=== PATIENT | male | born 1940 | race Caucasian/White ===

== ENCOUNTER 2017-03-09 08:42 | Inpatient (IN) | payer OTHER ==
[~2017-03-09] VITALS: Ht 172.7 cm; Wt 83.5 kg
[2017-03-09 09:39] LABS: BASO % 0.4 %; BASO ABS # 0.03 K/uL (0-0.2); EOS % 2.3 %; EOS ABS # 0.17 K/uL (0-0.5); HEMATOCRIT 50.6 % (42-52); HEMOGLOBIN 17.3 g/dL (14.0-18.0); IG# 0.03 K/uL (0.00-0.02); LYMPH % 22.8 %; LYMPH ABS # 1.68 K/uL (1.2-3.4); MEAN CELL VOLUME 93.7 fL (80-100); MEAN CORPUSCULAR HGB CONC 34.2 g/dl (32-36); MEAN PLATELET VOLUME 10.1 fL (7.4-10.4); MONO % 8.2 %; NEUT % 65.9 %; NEUT ABS # 4.85 K/uL (1.4-6.5); PLATELET COUNT 243 K/uL (130-400); RED CELL DISTRIBUTION WIDTH CV 13.3 % (11.5-14.5); RED CELL DISTRIBUTION WIDTH SD 45.6 fL (36.4-46.3); WHITE BLOOD COUNT 7.36 K/uL (4.8-10.8)
--- NOTE | 2017-03-09 09:45 | EMERGENCY ROOM VISIT NOTE ---
History Report prepared by Samantha: Cristin Davis Under the Supervision of: Dr. Yulissa Haas M.D. First contact with patient: 08:54 Chief Complaint: OTHER COMPLAINT Stated Complaint: MINOR DISORIENTATION WEDNESDAY History of Present Illness The patient is a 77 year old male who presents to the Emergency Room with complaints of resolved disorientation that occurred on Wednesday. The patient states that on Wednesday he had a busy day with his family and notes that he had a flat tire that frustrated him. The patient's daughter notes that the patient became flustered and had a hard time forming thoughts. She notes that the patient became very angry which is atypical for him. The patient's daughter states that the patient could not solve the situation and kept repeating the story throughout the entire day. She additionally notes that the patient forgot that he went to the grocery store on Wednesday. The patient's daughter notes that the patient has been easier to anger since Wednesday when he is typically happy. The patient reports a history of hypertension. Source of History: patient, family (daughter) Onset: Wednesday Position: other (global) Quality: other (disorientation) Timing: resolved Review of Systems See HPI for pertinent positives & negatives. A total of 10 systems reviewed and were otherwise negative. Past Medical & Surgical Medical Problems: (1) Hx of basal cell carcinoma (2) Hypertension (3) Palpitations (4) Stroke Surgical Problems: (1) Hx of colonoscopy Family History Hypertension Social History Smoking Status: Never Smoker Marital Status: Housing Status: lives with significant other Occupation Status: retired Current/Historical Medications Scheduled Cholecalciferol (Vitamin D), 2,000 UNITS PO DAILY Fish Oil ([place]-3), 1 CAP PO DAILY Lisinopril/Hctz (Zestoretic 20MG/12.5MG), 1 TAB PO DAILY Vitamins C & E (Vitamin C), 1 CAP PO DAILY Allergies Coded Allergies: Amoxicillin (Unverified Allergy, Unknown, ., 03/09/17) Physical Exam Vital Signs Date Time Temp Pulse Resp B/P (MAP) Pulse Ox O2 Delivery O2 Flow Rate FiO2 03/09/17 13:25 94 03/09/17 13:22 81 19 94 03/09/17 13:17 77 20 94 03/09/17 13:12 73 20 94 03/09/17 13:07 81 15 92 03/09/17 13:02 85 18 93 17 13:01 143/91 17 12:57 80 14 95 03/09/17 12:52 92 20 91 17 12:47 82 21 93 17 12:42 76 20 93 17 12:37 86 17 96 03/09/17 12:32 87 17 93 17 12:31 159/104 03/09/17 12:27 85 19 93 17 12:26 77 17 12:22 74 23 93 17 12:18 72 03/09/17 12:17 79 26 94 03/09/17 12:12 82 15 93 03/09/17 12:07 80 22 94 03/09/17 12:02 77 19 94 03/09/17 12:01 145/91 03/09/17 11:57 76 20 93 17 11:54 144/82 17 11:52 70 94 17 11:47 73 92 17 11:37 68 21 94 17 11:32 74 20 94 17 11:31 140/86 17 11:27 76 19 90 17 11:22 86 18 92 17 11:17 82 19 94 17 11:12 74 19 92 17 11:07 80 20 94 17 11:02 77 15 94 17 11:01 146/87 17 10:57 74 22 93 17 10:53 84 18 133/86 93 Room Air 03/09/17 10:52 80 23 93 03/09/17 10:47 71 15 92 17 10:42 82 14 93 17 10:37 74 20 93 17 10:32 77 19 94 17 10:31 133/86 17 10:27 78 21 95 03/09/17 10:22 77 20 94 03/09/17 10:17 71 21 94 17 10:12 79 20 94 17 10:08 75 18 168/99 94 Room Air 03/09/17 10:07 88 17 168/99 03/09/17 09:44 79 18 47/91 94 Room Air 03/09/17 09:43 147/91 03/09/17 09:42 78 19 93 03/09/17 09:37 61 21 95 03/09/17 09:32 74 25 155/100 95 03/09/17 09:31 180/105 03/09/17 09:27 84 18 03/09/17 09:22 79 17 94 03/09/17 09:17 77 19 94 03/09/17 09:12 78 21 93 03/09/17 09:10 85 03/09/17 09:05 94 Room Air 03/09/17 09:05 166/97 03/09/17 08:47 36.4 84 18 166/117 94 Room Air Physical Exam Vital signs reviewed. Noted to be hypertensive General: Well-appearing male, in no significant distress. HEENT: No scleral icterus, PERRLA, neck supple. Atraumatic. Cardiovascular: Regular rate and rhythm, no extra sounds. Pulmonary: Clear to auscultation bilaterally, normal work of breathing. Abdomen: Soft, nontender, nondistended, positive bowel sounds. Musculoskeletal: Atraumatic, no peripheral edema. Neurologic: Patient awake alert and oriented x 3, full strength in all 4 extremities. Cranial nerves 2 through 12 grossly intact. Normal cerebellar exam. Skin: Warm, dry, no rash Medical Decision & Procedures ER Provider Diagnostic Interpretation: Radiology results as stated below per my review and radiologist interpretation: HEAD WITHOUT CONTRAST (CT) CLINICAL HISTORY: 77 years-old Male presenting with TIA, recent also disorientation, diaphoresis. TECHNIQUE: Multidetector CT imaging of the head was performed without the use of intravenous contrast. IV contrast: None. A dose lowering technique was used consistent with the principles of ALARA (as low as reasonably achievable). COMPARISON: None. CT DOSE (mGy.cm): The estimated cumulative dose is 537.48 mGy.cm. FINDINGS: Marketing Development Representative topogram: Unremarkable. Proportional ventricular and sulcal prominence, likely age-related parenchymal volume loss. Symmetric prominence of CSF space along the frontal convexities likely related to volume loss. Brain parenchyma normal in appearance with preserved goff-white differentiation. No mass effect or midline shift. No hemorrhage or acute territorial infarct. No extra-axial fluid collection. Paranasal sinuses and mastoid air cells clear. Calvarium intact. IMPRESSION: 1. No acute intracranial abnormality. Electronically signed by: Jae Frazier M.D. 03/09/2017 10:11 AM Dictated Date/Time: 03/09/2017 10:05 AM CHEST ONE VIEW PORTABLE HISTORY: 77 years-old Male HTN, AMS acute hypertension with altered mental status COMPARISON: None available TECHNIQUE: Portable AP view of the chest FINDINGS: Cardiomediastinal and hilar silhouettes are within normal limits. Atherosclerosis of the aorta. No pneumothorax, pleural effusion, focal airspace consolidation or overt pulmonary edema. Linear subsegmental opacities of the left lung base suggest atelectasis/scarring. Ill-defined calcification is noted inferior to the right coracoid which may reflect debris within the subcoracoid recess. IMPRESSION: No acute cardiopulmonary process. The above report was generated using voice recognition software. It may contain grammatical, syntax or spelling errors. Electronically signed by: Greg Schaefer M.D. 03/09/2017 9:43 AM Dictated Date/Time: 03/09/2017 9:42 AM Laboratory Results Test 03/09/17 09:05 03/09/17 10:00 Immature Granulocyte % (Auto) 0.4 % White Blood Count 7.36 K/uL (4.8-10.8) Red Blood Count 5.40 M/uL (4.7-6.1) Hemoglobin 17.3 g/dL (14.0-18.0) Hematocrit 50.6 % (42-52) Mean Corpuscular Volume 93.7 fL (80-100) Mean Corpuscular Hemoglobin 32.0 pg (25-34) Mean Corpuscular Hemoglobin Concent 34.2 g/dl (32-36) Platelet Count 243 K/uL (130-400) Mean Platelet Volume 10.1 fL (7.4-10.4) Neutrophils (%) (Auto) 65.9 % Lymphocytes (%) (Auto) 22.8 % Monocytes (%) (Auto) 8.2 % Eosinophils (%) (Auto) 2.3 % Basophils (%) (Auto) 0.4 % Neutrophils # (Auto) 4.85 K/uL (1.4-6.5) Lymphocytes # (Auto) 1.68 K/uL (1.2-3.4) Monocytes # (Auto) 0.60 K/uL (0.11-0.59) Eosinophils # (Auto) 0.17 K/uL (0-0.5) Basophils # (Auto) 0.03 K/uL (0-0.2) Immature Granulocyte # (Auto) 0.03 K/uL (0.00-0.02) Prothrombin Time 9.7 SECONDS (9.0-12.0) Prothromb Time International Ratio 0.9 (0.9-1.1) Activated Partial Thromboplast Time 25.3 SECONDS (21.0-31.0) Partial Thromboplastin Ratio 1.0 Total Bilirubin 0.6 mg/dl (0.2-1) Direct Bilirubin 0.1 mg/dl (0-0.2) Aspartate Amino Transf (AST/SGOT) 13 U/L (15-37) Alanine Aminotransferase (ALT/SGPT) 26 U/L (12-78) Alkaline Phosphatase 68 U/L (45-117) Total Protein 7.7 gm/dl (6.4-8.2) Albumin 4.2 gm/dl (3.4-5.0) Thyroid Stimulating Hormone (TSH) 1.600 uIu/ml (0.300-4.500) Lyme Disease IgG Antibody NEG (NEG) Lyme Disease IgM Antibody NEG (NEG) Urine Color YELLOW Urine Appearance CLEAR (CLEAR) Urine pH 7.5 (4.5-7.5) Urine Specific [place] 1.017 (1.000-1.030) Urine Protein NEG (NEG) Urine Glucose (UA) NEG (NEG) Urine Ketones NEG (NEG) Urine Occult Blood NEG (NEG) Urine Nitrite NEG (NEG) Urine Bilirubin NEG (NEG) Urine Urobilinogen NEG (NEG) Urine Leukocyte Esterase NEG (NEG) Laboratory results per my review. ECG Indication: other (disorientation) Rate (beats per minute): 78 Rhythm: sinus rhythm Findings: PVC (occasional), no acute ischemic change, no ectopy ED Course 928: Past medical records reviewed. The patient was evaluated in room B5. A complete history and physical examination was performed. 1220: I reevaluated the patient and he is resting comfortably. I discussed the test results with him and I discussed the treatment plan. He verbalized complete understanding and agreement. He is ready to go home. 1225: The patient went into a non-sustained wide complex ventricular tachycardia. I reevaluated the patient and discussed the new findings. I discussed the treatment plan. The patient and his daughter feel that the patient cannot stay in the emergency department for further treatment. I will speak to the patients primary care physician. 1233: I spoke to Dr. Almaraz, Family Medicine. He agrees that the patient needs to stay for further evaluation and treatment. 1235: I reevaluated the patient and he is resting. I discussed the conversation that I had with his PCP and that we both strongly recommend that he stays for further work up. He has decided that he will stay for further work up and treatment. 1247: I discussed the patients case with Vandana Cohen PA-C. She is going to evaluate the patient for further treatment. Medical Decision Differential diagnosis: Etiologies such as metabolic, infection, hypo/hyperglycemia, electrolyte abnormalities, cardiac sources, intracerebral event, toxicologic, neurologic, as well as others were entertained. This patient was evaluated and appeared to be in no significant distress. Physical examination is fairly unrevealing. CT scan of the head was performed and is negative for acute intracranial abnormality. 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 Laboratory work is fairly unrevealing. EKG reveals no acute ischemic changes. After my evaluation and forming the patient of the findings, nursing staff reported a 9 beat run of the wide-complex tachycardia. I informed the patient of the findings. He initially stated there is "no way" he is staying in the hospital. I offered to speak with his primary care physician, Dr. Almaraz and he agreed. Dr. Almaraz stated he felt strongly the patient needed hospitalized. He would be happy to follow the patient up if he adamantly refused however he asked me to convey his concern for discharge. The patient agreed to stay for further management. The hospitalist was consulted. Patient and daughter are aware of the plan and agree. Medication Reconcilliation Current Medication List: was personally reviewed by me Blood Pressure Screening Patient's blood pressure: Elevated blood pressure Blood pressure disposition: Referred to PCP Consults Time Called: 1230 Consulting Physician: Dr. Almaraz, Family Medicine Returned Call: [address] Almaraz Family Medicine. He agrees that the patient needs to stay for further evaluation and treatment. Additional Consults: Time Called: 1242 Consulted Physician: Vandana oChen PA-C Returned Call: 1244 Additional Comments: I discussed the patients case with Vandana Cohen PA-C. She is going to evaluate the patient for further treatment. Impression Primary Impression: Altered mental status Additional Impressions: Hypertension Wide-complex tachycardia Scribe Attestation The scribe's documentation has been prepared under my direction and personally reviewed by me in its entirety. I confirm that the note above accurately reflects all work, treatment, procedures, and medical decision making performed by me. Departure Information Dispostion Being Evaluated By Hospitalist Referrals David Almaraz M.D. (PCP) Problem Qualifiers
[2017-03-09] MEDS ORDERED: CHOL400T5 (09:49)
[2017-03-09] MEDS ORDERED: VITACAP26 PO (09:49)
[2017-03-09] MEDS ORDERED: OMEG10007 PO (09:49)
[2017-03-09] MEDS ORDERED: CHOL200010 PO (09:49)
[2017-03-09 09:50] LABS: ALBUMIN 4.2 gm/dl (3.4-5.0); ALT/SGPT 26 U/L (12-78); BLOOD UREA NITROGEN 18 mg/dl (7-18); CALCIUM 9.1 mg/dl (8.5-10.1); CARBON DIOXIDE 28 mmol/L (21-32); CREATININE 1.03 mg/dl (0.60-1.40); GLUCOSE 111 mg/dl (70-99); POTASSIUM 4.1 mmol/L (3.5-5.1); SODIUM 135 mmol/L (136-145)
[2017-03-09] MEDS ORDERED: LISI-787 PO (09:50)
[2017-03-09 10:00] LABS: ALKALINE PHOSPHATASE 68 U/L (45-117); AST/SGOT 13 U/L (15-37); TOTAL PROTEIN 7.7 gm/dl (6.4-8.2)
--- NOTE | 2017-03-09 10:12 | DIAGNOSTIC IMAGING REPORT ---
HEAD WITHOUT CONTRAST (CT) CLINICAL HISTORY: 77 years-old Male presenting with TIA, recent also disorientation, diaphoresis. TECHNIQUE: Multidetector CT imaging of the head was performed without the use of intravenous contrast. IV contrast: None. A dose lowering technique was used consistent with the principles of ALARA (as low as reasonably achievable). COMPARISON: None. CT DOSE (mGy.cm): The estimated cumulative dose is 537.48 mGy.cm. FINDINGS: Wood Form Builder topogram: Unremarkable. Proportional ventricular and sulcal prominence, likely age-related parenchymal volume loss. Symmetric prominence of CSF space along the frontal convexities likely related to volume loss. Brain parenchyma normal in appearance with preserved goff-white differentiation. No mass effect or midline shift. No hemorrhage or acute territorial infarct. No extra-axial fluid collection. Paranasal sinuses and mastoid air cells clear. Calvarium intact. IMPRESSION: 1. No acute intracranial abnormality. Electronically signed by: Jae Frazier M.D. 03/09/2017 10:11 AM Dictated Date/Time: 03/09/2017 10:05 AM
[2017-03-09] MEDS ORDERED: ACETAMINOPHEN 325 MG TAB PO PRN (13:45)
[2017-03-09 14:43] LABS: INR 0.9 (0.9-1.1); PTT PATIENT 25.3 SECONDS (21.0-31.0)
--- NOTE | 2017-03-09 15:57 | ECHOCARDIOGRAM REPORT ---
*NOTICE TO RECEIVING DEMOCRAT AGENCY This information is strictly Confidential and protected under [place] law. [place] law prohibits you from making any further disclosure of this information unless further disclosure is expressly permitted by the written consent of the person to whom it pertains or is authorized by law. A general authorization for the release of medical or other information is not sufficient for this purpose. Hospital accepts no responsibility if the information is made available to any other person, INCLUDING THE PATIENT. Interpretation Summary * Name: SUSAN SHEEHAN Study Date: 03/09/2017 02:11 PM BP: 169/92 mmHg * Patient Location: ED HR: 89 * : 1940 (M/d/yyyy) Gender: Male Height: 68 in * Age: 77 yrs Ethnicity: [place] Weight: 182 lb * Ordering Physician: Dalila Ervin * Referring Physician: Self, Referred * Performed By: Carlota Yuan RCS * * Reason For Study: PALPITATIONS * BSA: 2.0 m2 * -- Conclusions -- * The left ventricle is normal in size. * There is moderate concentric left ventricular hypertrophy. * Focal thickening of the basal septum with no evidence of left ventricular outflow obstruction. * There is mild hypokinsis of the posterior lateral wall at the base and mid level. Wall motion is otherwise normal * Ejection Fraction = 55-60%. * Grade I diastolic dysfunction, (abnormal relaxation pattern). * Aortic valve sclerosis mild, without significant aortic valvular stenosis. * There is trace mitral regurgitation. Procedure Details * A complete two-dimensional transthoracic echocardiogram was performed (2D, M-mode, Doppler and color flow Doppler). Left Ventricle * The left ventricle is normal in size. * There is moderate concentric left ventricular hypertrophy. * Focal thickening of the basal septum with no evidence of left ventricular outflow obstruction. * Left ventricular systolic function is normal. * Ejection Fraction = 55-60%. * There is mild hypokinsis of the posterior lateral wall at the base and mid level. Wall motion is otherwise normal Right Ventricle * The right ventricle is normal in size and function. Atria * The left atrium is mildly dilated. * Right atrial size is normal. * No ASD detected; PFO is not assessed. Mitral Valve * The mitral valve anatomy is normal. * There is no mitral valve stenosis. * There is trace mitral regurgitation. Tricuspid Valve * The tricuspid valve anatomy is normal. * There is no tricuspid stenosis. * There is trace tricuspid regurgitation. Aortic Valve * The aortic valve is trileaflet. * Aortic valve sclerosis mild, without significant aortic valvular stenosis. * No hemodynamically significant valvular aortic stenosis. * No aortic regurgitation is present. Pulmonic Valve * The pulmonic valve is not well visualized. Great Vessels * The aortic root is normal size. Pericardium/Pleural * There is no pericardial effusion. Great Vessels * Normal inferior vena cava diameter and respiratory variation suggests normal central venous pressure. Left Ventricular Diastolic Function * Grade I diastolic dysfunction, (abnormal relaxation pattern). MMode 2D Measurements and Calculations IVSd 1.9 cm IVSs 2.3 cm LVIDd 5.0 cm LVIDs 3.7 cm LVPWd 1.3 cm LVPWs 1.5 cm IVS/LVPW 1.4 FS 27.3 % EDV(Teich) 120.5 ml ESV(Teich) 56.7 ml EF(Teich) 52.9 % EDV(cubed) 128.1 ml ESV(cubed) 49.1 ml EF(cubed) 61.6 % % IVS thick 22.9 % % LVPW thick 11.2 % LV mass(C)d 358.3 grams LV mass(C)dI 182.5 grams/m\S\2 LV mass(C)s 301.2 grams LV mass(C)sI 153.4 grams/m\S\2 SV(Teich) 63.8 ml SI(Teich) 32.5 ml/m\S\2 SV(cubed) 78.9 ml SI(cubed) 40.2 ml/m\S\2 Ao root diam 3.4 cm Ao root area 9.1 cm\S\2 LA dimension 4.7 cm LA/Ao 1.4 LVOT diam 2.0 cm LVOT area 3.0 cm\S\2 EDV(MOD-sp4) 120.7 ml ESV(MOD-sp4) 51.9 ml EF(MOD-sp4) 57.0 % EDV(MOD-sp2) 94.6 ml ESV(MOD-sp2) 47.9 ml EF(MOD-sp2) 49.4 % SV(MOD-sp4) 68.8 ml SI(MOD-sp4) 35.0 ml/m\S\2 SV(MOD-sp2) 46.7 ml SI(MOD-sp2) 23.8 ml/m\S\2 Doppler Measurements and Calculations MV E max amanda 51.2 cm/sec MV A max amanda 79.8 cm/sec MV E/A 0.64 MV P1/2t max amanda 78.5 cm/sec MV P1/2t 105.4 msec MVA(P1/2t) 2.1 cm\S\2 MV dec slope 218.2 cm/sec\S\2 MV dec time 0.21 sec TR max amanda 278.6 cm/sec
[2017-03-09 16:00] VITALS: BP 132/88; TEMP 36.9; O2SAT 94; Ht 172.7 cm; Wt 83.5 kg
[2017-03-09 16:06] VITALS: BP 132/88; PULSE 74; TEMP 36.9; O2SAT 94
--- NOTE | 2017-03-09 16:34 | History and Physical ---
History & Physical Date of Service Mar 09, 2017. History & Physical This is a 77 year old male with a PMH of HTN presents at the insistence of his daughters due to altered mental status on March 06. As per patient, he had a flat tire on Wednesday and he admittedly became very agitated and worked up about this. He states that he went home and as per his family, kept repeating the same story over and over. He became very angry, which the family states is unusual for him. It took some convincing, therefore, he presented to the ER days later to get "checked up". Upon presentation to the ED, he had a head CT which showed no acute intracranial process. He did have a wide complex tachycardia and multiple PVCs. He states he does have some palpitations intermittently for years now, but has never had it checked up. VITALS: Last Vital Signs Documentation Date Time Temp Pulse Resp B/P (MAP) Pulse Ox O2 Delivery O2 Flow Rate FiO2 03/09/17 16:06 36.9 74 20 132/88 (103) 94 Room Air GEN: no acute distress HEENT: NC/AT (scarring noted on the L lateral orbit) CVS: +S1, S2, RRR, no murmurs LUNGS: CTA b/l, no wheezing ABD: soft, NT/ND EXT: no edema NEURO: no focal deficits, no facial droop Altered Mental Status Head CT negative possibly situational will check Brain MRI check fasting lipids in AM start aspirin Wide Complex Tachycardia check an echo monitor in tele potassium and magnesium are wnl TSH wnl cardiology consulted metoprolol has been started; further input as per cardiology HTN takes HCTZ/Lisinopril monitor BP and adjust due to b-[place] being started DVT ppx subq heparin FULL CODE
[2017-03-09] MEDS ORDERED: METOPROLOL TARTRATE 25 MG TAB PO SCH (17:00)
--- NOTE | 2017-03-09 17:39 | History and Physical ---
History & Physical Date & Time of Service: Mar 09, 2017 at 14:03 Chief Complaint: Minor Disorientation Wednesday Primary Care Physician: David Almaraz M.D. History of Present Illness Source: patient, family Pt is 77 y/o M with PMH HTN presented to ER with c/o altered mental status 3 days ago. Pt reports 3 days ago he "had bad day" and had to change a tire. He reports getting worked up and anxious about this. He states at that time felt anxious, felt like heart was racing and he felt diaphoretic and reports symptoms lasted a few minutes. His daughter reports that when pt returned home, he told same story several times which is unusual for pt. Pt denies any other symptoms during this episode. States following days pt not repeating himself. Does report pt forgot that he went to the store 2 days ago. Daughter reports pt was also more easily angered 3 days ago which is unlike him. Currently pt states "I feel fine". He reports hx intermittent palpitations for years. Usually occurs at night when he is on his L side. states feels palpitations for a couple of seconds which resolves with coughing or turning over. Has also experienced palpitations when he is scared or anxious which lasts a couple of seconds. Denies hx Holter monitor in past or known CAD. Denies any CP, SOB or dizziness, syncope with these palpitation episodes. Denies hx TIA/stroke. Denies hx head injury/trauma, fever/chills, N/V/D/C, SCHUSTER, dizziness, syncope, vision changes, neck pain, CP, SOB, orthopnea, PND, cough, sore throat, choking, otalgia, rhinorrhea, abdominal pain, paresthesias, weakness, extremity weakness, speech changes, facial drooping, extremity edema, urinary symptoms. In ER pt afebrile, initially hypertensive 166/117 down to 133/86. Pt reports hx white coat syndrome. He did take his BP med this am. No leukocytosis, negative U /A, negative CXR, negative head CT. EKG: NSR rate 78 with PVC. On monitor a 9 beat wide complex tachycardia captured, pt was asymptomatic. Past Medical/Surgical History Medical Problems: (1) Hx of basal cell carcinoma Permanent Comment: nose, back, chest Status: Chronic (2) Hypertension Status: Chronic Surgical Problems: (1) Hx of colonoscopy Permanent Comment: 2017 - Pt reports polyps and hemorrhoids Status: Resolved Family History FH: cancer FATHER (colon CA, age 67) Hypertension Social History Smoking Status: Former Smoker (1ppd x 10 years, quit 1966) Smokeless Tobacco Use: No Alcohol Use: none Drug Use: none Marital Status: Housing status: lives with significant other Occupational Status: retired Multi-Drug Resistant Organisms History of MDRO: No Allergies Coded Allergies: Amoxicillin (Unverified Allergy, Unknown, ., 03/09/17) Home Medications Scheduled Cholecalciferol (Vitamin D), 2,000 UNITS PO DAILY Fish Oil ([place]-3), 1 CAP PO DAILY Lisinopril/Hctz (Zestoretic 20MG/12.5MG), 1 TAB PO DAILY Vitamins C & E (Vitamin C), 1 CAP PO DAILY Review of Systems Constitutional: No fever, No chills, No sweats, No weight loss, No weakness Eyes: No worsening of vision, No eye pain, No redness, No discharge ENT: No hearing loss, No unusual epistaxis, No nasal symptoms, No sore throat, No tinnitus Respiratory: No cough, No sputum, No wheezing, No shortness of breath, No dyspnea on exertion, No dyspnea at rest Cardiovascular: + problem reported (see HPI) Abdomen: No pain, No nausea, No vomiting, No diarrhea, No constipation Musculoskeletal: No joint pain, No muscle pain, No swelling, No calf pain Genitourinary - Male: No hematuria, No dysuria, No urinary frequency, No urinary urgency Neurologic: No paralysis, No weakness, No numbness/tingling, No vertigo, No balance problems Psychiatric: No depression symptoms Endocrine: No fatigue, No excessive thirst, No excessive urination Hematologic / Lymphatic: No swollen lymph nodes, No night sweats Integumentary: + rash (pt with pruritic rash to back, extremities. seen by dermatology. pt reports trial triamcinolone cream, now using sarna and finished 10 day prednisone taper last week. pt reports has gotten this rash past couple of cabrera. denies new skin products/detergents or others with similar rash), + itch Physical Exam Vital Signs Date Time Temp Pulse Resp B/P (MAP) Pulse Ox O2 Delivery O2 Flow Rate FiO2 03/09/17 13:56 83 18 136/101 95 Room Air 03/09/17 13:25 94 17 13:22 81 19 94 17 13:17 77 20 94 17 13:12 73 20 94 17 13:07 81 15 92 03/09/17 13:02 85 18 93 03/09/17 13:01 143/91 03/09/17 12:57 80 14 95 03/09/17 12:52 92 20 91 03/09/17 12:47 82 21 93 03/09/17 12:42 76 20 93 03/09/17 12:37 86 17 96 03/09/17 12:32 87 17 93 03/09/17 12:31 159/104 03/09/17 12:27 85 19 93 03/09/17 12:26 77 03/09/17 12:22 74 23 93 03/09/17 12:18 72 03/09/17 12:17 79 26 94 03/09/17 12:12 82 15 93 03/09/17 12:07 80 22 94 03/09/17 12:02 77 19 94 03/09/17 12:01 145/91 03/09/17 11:57 76 20 93 17 11:54 144/82 03/09/17 11:52 70 94 17 11:47 73 92 03/09/17 11:37 68 21 94 03/09/17 11:32 74 20 94 17 11:31 140/86 17 11:27 76 19 90 03/09/17 11:22 86 18 92 03/09/17 11:17 82 19 94 17 11:12 74 19 92 17 11:07 80 20 94 03/09/17 11:02 77 15 94 17 11:01 146/87 17 10:57 74 22 93 17 10:53 84 18 133/86 93 Room Air 03/09/17 10:52 80 23 93 17 10:47 71 15 92 17 10:42 82 14 93 03/09/17 10:37 74 20 93 17 10:32 77 19 94 17 10:31 133/86 17 10:27 78 21 95 12/12/17 10:22 77 20 94 03/09/17 10:17 71 21 94 03/09/17 10:12 79 20 94 03/09/17 10:08 75 18 168/99 94 Room Air 03/09/17 10:07 88 17 168/99 03/09/17 09:44 79 18 47/91 94 Room Air 03/09/17 09:43 147/91 03/09/17 09:42 78 19 93 03/09/17 09:37 61 21 95 03/09/17 09:32 74 25 155/100 95 03/09/17 09:31 180/105 03/09/17 09:27 84 18 03/09/17 09:22 79 17 94 03/09/17 09:17 77 19 94 03/09/17 09:12 78 21 93 03/09/17 09:10 85 03/09/17 09:05 94 Room Air 03/09/17 09:05 166/97 03/09/17 08:47 36.4 84 18 166/117 94 Room Air General Appearance: WD/WN, no apparent distress Head: normocephalic, atraumatic Eyes: normal inspection, PERRL, EOMI, sclerae normal ENT: hearing grossly normal, pharynx normal Neck: supple, no JVD, trachea midline Respiratory/Chest: chest non-tender, lungs clear, normal breath sounds, no respiratory distress, no accessory muscle use Cardiovascular: regular rate, rhythm, no edema, no murmur, normal peripheral pulses Abdomen/GI: normal bowel sounds, non tender, soft Extremities/Musculoskelatal: normal inspection, normal capillary refill, no pedal edema, normal range of motion, non-tender Neurologic/Psych: development representative II-XII nml as tested, alert, normal mood/affect, oriented x 3 Skin: normal color, warm/dry, + pertinent finding (erytematous papules to back , extremities) Diagnostics Laboratory Results Results Past 24 Hours Test 03/09/17 09:05 03/09/17 10:00 Range/Units White Blood Count 7.36 4.8-10.8 K/uL Red Blood Count 5.40 4.7-6.1 M/uL Hemoglobin 17.3 14.0-18.0 g/dL Hematocrit 50.6 42-52 % Mean Corpuscular Volume 93.7 80-100 fL Mean Corpuscular Hemoglobin 32.0 25-34 pg Mean Corpuscular Hemoglobin Concent 34.2 32-36 g/dl Platelet Count 243 130-400 K/uL Mean Platelet Volume 10.1 7.4-10.4 fL Neutrophils (%) (Auto) 65.9 % Lymphocytes (%) (Auto) 22.8 % Monocytes (%) (Auto) 8.2 % Eosinophils (%) (Auto) 2.3 % Basophils (%) (Auto) 0.4 % Neutrophils # (Auto) 4.85 1.4-6.5 K/uL Lymphocytes # (Auto) 1.68 1.2-3.4 K/uL Monocytes # (Auto) 0.60 0.11-0.59 K/uL Eosinophils # (Auto) 0.17 0-0.5 K/uL Basophils # (Auto) 0.03 0-0.2 K/uL RDW Standard Deviation 45.6 36.4-46.3 fL RDW Coefficient of Variation 13.3 11.5-14.5 % Immature Granulocyte % (Auto) 0.4 % Immature Granulocyte # (Auto) 0.03 0.00-0.02 K/uL Sodium Level 135 136-145 mmol/L Potassium Level 4.1 3.5-5.1 mmol/L Chloride Level 102 98-107 mmol/L Carbon Dioxide Level 28 21-32 mmol/L Anion Gap 6.0 3-11 mmol/L Blood Urea Nitrogen 18 7-18 mg/dl Creatinine 1.03 0.60-1.40 mg/dl Estimated GFR () 80.8 Estimated GFR (Non- 69.7 BUN/Creatinine Ratio 17.6 10-20 Random Glucose 111 70-99 mg/dl Calcium Level 9.1 8.5-10.1 mg/dl Magnesium Level 2.5 1.8-2.4 mg/dl Total Bilirubin 0.6 0.2-1 mg/dl Direct Bilirubin 0.1 0-0.2 mg/dl Aspartate Amino Transf (AST/SGOT) 13 15-37 U/L Alanine Aminotransferase (ALT/SGPT) 26 12-78 U/L Alkaline Phosphatase 68 45-117 U/L Total Protein 7.7 6.4-8.2 gm/dl Albumin 4.2 3.4-5.0 gm/dl Thyroid Stimulating Hormone (TSH) 1.600 0.300-4.500 uIu/ml Urine Color YELLOW Urine Appearance CLEAR CLEAR Urine pH 7.5 4.5-7.5 Urine Specific [place] 1.017 1.000-1.030 Urine Protein NEG NEG Urine Glucose (UA) NEG NEG Urine Ketones NEG NEG Urine Occult Blood NEG NEG Urine Nitrite NEG NEG Urine Bilirubin NEG NEG Urine Urobilinogen NEG NEG Urine Leukocyte Esterase NEG NEG Diagnostic Radiology Head CT: IMPRESSION: 1. No acute intracranial abnormality. CXR: IMPRESSION: No acute cardiopulmonary process. EKG EKG: Rate 78, sinus rhythm, PVC Read by cardiology: Sinus rhythm with occasional Premature ventricular complexes Otherwise normal ECG No previous ECGs available Confirmed by CORIN ARREAGA ([id number]) on 03/09/2017 4:26:41 PM Impression Assessment and Plan ALTERED MENTAL STATUS Pt with hx repeating himself 3 days ago after anxious. No other neuro deficits. Pt asymptomatic today. U/A negative. Possible anxiety, TIA/Stroke -continue to monitor -MRI brain -lipid panel in am -ASA WIDE COMPLEX TACHYCARDIA Pt reports hx palpitations intermittently x years. Denies symptoms today in ER, however rhythm strip showed wide complex tachycardia episode. Normal K, Mg. TSH WNL -tele monitor -echo -cardiology consult HTN BP: 166/117 initially down to 133/86 without intervention -continue lisinopril/HCTZ DVT PROPHYLAXIS -Heparin SQ DISPOSITION -admit tele -Full Code as per discussion with pt Pt was seen with Dr Nolasco. See addendum Level of Care Telemetry Resuscitation Status FULL RESUSCITATION VTE Prophylaxis VTE Risk Assessment Done? Y/N: Yes Risk Level: Moderate Given or contraindicated: Unfractionated heparin SQ
[2017-03-09 18:53] VITALS: BP 147/80; PULSE 71; TEMP 36.6; O2SAT 96
[2017-03-09 20:00] VITALS: O2SAT 96
[2017-03-09 20:34] VITALS: BP 138/85; PULSE 73
[2017-03-09] MEDS: HEPARIN SOD 5000 UNIT/0.5 ML CARP SQ SCH (20:37)
--- NOTE | 2017-03-09 20:43 | CARDIOLOGY CONSULTATION ---
DATE OF CONSULTATION: 03/09/2017 REFERRING: Dr. Hammond. PRIMARY CARE PHYSICIAN: Dr. David Almaraz [place]. INDICATIONS: Transient confusion, wide complex tachycardia. HISTORY OF PRESENT ILLNESS: The patient is a 77-year-old male who carries a history of hypertension by description, on medical therapies, but no other significant medical problems, who notes on Wednesday he had a very frustrating day after being found with a flat tire, became acutely angry and upset, followed by an episode of transient flushing and diaphoresis lasting less than 1 minute. Symptoms resolved, though family felt the patient was more forgetful and "not himself," repeating stories over and over again with mild disorientation. The patient was urged to present to the Emergency Room today due to complaints. Initial evaluation demonstrated normal CT scan of the head, no significant laboratory abnormalities. EKG revealed sinus rhythm, occasional ventricular ectopic beats. While on telemetry, however, the patient was noted to have intermittent ventricular ectopy and occasional couplets with 1 run of wide complex tachycardia, accelerated ventricular versus aberrant conduction asymptomatically. He was referred for further evaluation of the above complaints. He denies any prior history of TIA or stroke. Notes no history of rheumatic fever, scarlet fever, renal or hepatic disease. He has been on the "same" blood pressure medication for multiple years. Notes no history of hyperlipidemia. Denies any sleep disturbance. Notes no fevers, chills, sweats, cough, hoarseness, wheeze or hemoptysis. Notes no melena or hematochezia. 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 Notes no recent rash or arthritic complaints. He is active, climbs stairs, carries items without difficulty. Notes no recent decline in overall functional capacity other than the events as noted. Family not available for confirmation of complaints or description. ALLERGIES: NOTED TO BE AMOXICILLIN. MEDICATIONS PRIOR TO HOSPITALIZATION: Cholecalciferol 2000 units daily, omega-3 fish oil, lisinopril/hydrochlorothiazide 20/12.5 mg daily, vitamin E&C. PAST SURGICAL HISTORY: Notable only for local excision of skin lesions. FAMILY HISTORY: Not specifically notable for heart disease per the patient. 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 He is a nonsmoker, nondrinker. PHYSICAL EXAMINATION: VITAL SIGNS: Heart rate is 90-100, blood pressure is 142/80. HEENT: Normocephalic and atraumatic. Nares without discharge. Throat is clear. NECK: Supple without thyromegaly or lymphadenopathy. There are no carotid bruits. Carotid pulses are 2/4 without delay. LUNGS: Clear to auscultation. CARDIOVASCULAR: Regular with normal S1, S2. There is no murmur, gallop or rub. ABDOMEN: Soft, no tenderness. There is no palpable hepatosplenomegaly. There is no hepatojugular reflux. EXTREMITIES: Without cyanosis or clubbing. There is no peripheral edema. There are intact distal pulses with brisk distal pulse present. NEUROLOGIC: The patient is alert, answering questions appropriately, does repeat questioning stories on 2 separate occasions during my examination. There is no gross focal motor or sensory deficit. Fundi not visualized. LABORATORY STUDIES: Sodium is 135, potassium is 4.1, chloride is 102, bicarbonate is 28, BUN is 18, creatinine is 1.0. PT and PTT are normal. White cell count is 7.3, hemoglobin is 17.3, platelet count is 243. TSH is 1.6. AST and ALT are normal. CT scan of the head was read as normal. Chest x-ray revealed normal size cardiac silhouette. Echocardiogram today demonstrates occasional ventricular ectopy during the procedure. There is mild hypokinesis of the posterolateral wall. This may reflect true wall motion versus secondary to frequent ventricular ectopy. There is moderate left ventricular hypertrophy, mild sclerosis of the aortic valve and type 1 diastolic dysfunction. IMPRESSION: A 77-year-old male who suffered an acute event in the setting of a marked emotional stress on Wednesday prior to current presentation. He was noted by family to have some mild disorientation and change in personality traits with repetitive speech since event. He presented to the Emergency Room and was found to be significantly hypertensive on presentation, elevated heart rates are present as well. During monitoring tech, he was noted to have a brief run of wide complex tachycardia. RECOMMENDATIONS: Treating hypertension by adding beta ronak regimen should aid in arrhythmia issues. Troponin, sed rate and Lyme trial ordered to current therapies. We will follow the patient as further evaluation proceeds with further recommendations pending the results of studies ordered. Carotid duplex will be placed as an order as well. Consideration may be made for MRI to exclude new neurologic infarct. MTDD
[2017-03-09] MEDS ORDERED: ASPIRIN 81 MG CHEW PO STA (23:05)
--- NOTE | 2017-03-09 23:06 | DIAGNOSTIC IMAGING REPORT ---
MRI OF THE BRAIN WITHOUT CONTRAST CLINICAL HISTORY: Altered mental status. COMPARISON STUDY: Head CT March 09, 2017. TECHNIQUE: Utilizing a 1.5 Althea magnet and dedicated coil, multiplanar, multiecho imaging of the brain was performed without IV contrast. FINDINGS: There is a 2.6 x 0.9 cm focus of restricted diffusion within the periventricular portion of the left temporooccipital region which involves the left aspect of the splenium of the corpus callosum. No additional sites of restricted diffusion are present. There is no mass effect or evidence of hemorrhagic conversion. Basilar cisterns are patent. There are no extra-axial collections. There is moderate atrophy. Scattered white matter T2 hyperintense foci suggest small vessel disease. No intracranial mass is identified on this unenhanced exam. Orbits are unremarkable. Calvarial signal is maintained. There is mild mucosal thickening of the right maxillary sinus. IMPRESSION: 1. 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 No significant mass effect. No evidence of hemorrhagic conversion. Discussed with Dr. Carranza at time of dictation. 2. Moderate atrophy and mild small vessel disease. Electronically signed by: Rakan Li M.D. 03/09/2017 11:04 PM Dictated Date/Time: 03/09/2017 10:55 PM
--- NOTE | 2017-03-09 23:09 | Progress Note ---
Internal Med Progress Note Date of Service: Mar 09, 2017. Provider Documentation: Made aware by Dr. Li (radiologist instructional technology director) of abnormal MRI findings - acute CVA left. Change to full admission. Facilitate ASA, statin for secondary stroke prevention. Add TTE to stroke workup. Hold home ACEI/HCTZ, decrease beta ronak for now to allow for permissive hypertension. Will relay to AM provider. Vital Signs: Date Time Temp Pulse Resp B/P (MAP) Pulse Ox O2 Delivery O2 Flow Rate FiO2 03/10/17 07:32 36.7 88 20 135/90 (105) 95 Room Air 03/10/17 04:00 Room Air 03/10/17 03:48 36.5 63 17 119/74 (89) 94 Room Air 03/09/17 23:59 Room Air 03/09/17 23:41 36.4 55 18 167/85 (112) 96 Room Air 03/09/17 20:34 73 138/85 (102) 03/09/17 20:00 96 Room Air 03/09/17 18:53 36.6 71 18 147/80 (102) 96 Room Air 03/09/17 16:06 36.9 74 20 132/88 (103) 94 Room Air 03/09/17 16:00 36.9 20 132/88 94 Room Air 03/09/17 15:47 86 20 142/81 96 Room Air 03/09/17 14:51 100 20 169/92 95 Room Air 03/09/17 13:56 83 18 136/101 95 Room Air 03/09/17 13:25 94 03/09/17 13:22 81 19 94 03/09/17 13:17 77 20 94 03/09/17 13:12 73 20 94 03/09/17 13:07 81 15 92 03/09/17 13:02 85 18 93 03/09/17 13:01 143/91 03/09/17 12:57 80 14 95 03/09/17 12:52 92 20 91 03/09/17 12:47 82 21 93 03/09/17 12:42 76 20 93 03/09/17 12:37 86 17 96 03/09/17 12:32 87 17 93 03/09/17 12:31 159/104 03/09/17 12:27 85 19 93 03/09/17 12:26 77 03/09/17 12:22 74 23 93 03/09/17 12:18 72 03/09/17 12:17 79 26 94 03/09/17 12:12 82 15 93 03/09/17 12:07 80 22 94 03/09/17 12:02 77 19 94 03/09/17 12:01 145/91 03/09/17 11:57 76 20 93 17 11:54 144/82 03/09/17 11:52 70 94 03/09/17 11:47 73 92 17 11:37 68 21 94 03/09/17 11:32 74 20 94 03/09/17 11:31 140/86 03/09/17 11:27 76 19 90 03/09/17 11:22 86 18 92 03/09/17 11:17 82 19 94 03/09/17 11:12 74 19 92 03/09/17 11:07 80 20 94 03/09/17 11:02 77 15 94 03/09/17 11:01 146/87 03/09/17 10:57 74 22 93 03/09/17 10:53 84 18 133/86 93 Room Air 03/09/17 10:52 80 23 93 03/09/17 10:47 71 15 92 03/09/17 10:42 82 14 93 03/09/17 10:37 74 20 93 03/09/17 10:32 77 19 94 03/09/17 10:31 133/86 03/09/17 10:27 78 21 95 03/09/17 10:22 77 20 94 03/09/17 10:17 71 21 94 03/09/17 10:12 79 20 94 03/09/17 10:08 75 18 168/99 94 Room Air 03/09/17 10:07 88 17 168/99 03/09/17 09:44 79 18 47/91 94 Room Air 03/09/17 09:43 147/91 03/09/17 09:42 78 19 93 03/09/17 09:37 61 21 95 03/09/17 09:32 74 25 155/100 95 03/09/17 09:31 180/105 03/09/17 09:27 84 18 03/09/17 09:22 79 17 94 03/09/17 09:17 77 19 94 03/09/17 09:12 78 21 93 03/09/17 09:10 85 03/09/17 09:05 94 Room Air 03/09/17 09:05 166/97 03/09/17 08:47 36.4 84 18 166/117 94 Room Air Lab Results: Results Past 24 Hours Test 03/09/17 09:05 03/09/17 10:00 03/09/17 16:29 03/10/17 05:12 Range/Units White Blood Count 7.36 7.63 4.8-10.8 K/uL Red Blood Count 5.40 5.13 4.7-6.1 M/uL Hemoglobin 17.3 16.3 14.0-18.0 g/dL Hematocrit 50.6 47.8 42-52 % Mean Corpuscular Volume 93.7 93.2 80-100 fL Mean Corpuscular Hemoglobin 32.0 31.8 25-34 pg Mean Corpuscular Hemoglobin Concent 34.2 34.1 32-36 g/dl Platelet Count 243 228 130-400 K/uL Mean Platelet Volume 10.1 10.0 7.4-10.4 fL Neutrophils (%) (Auto) 65.9 % Lymphocytes (%) (Auto) 22.8 % Monocytes (%) (Auto) 8.2 % Eosinophils (%) (Auto) 2.3 % Basophils (%) (Auto) 0.4 % Neutrophils # (Auto) 4.85 1.4-6.5 K/uL Lymphocytes # (Auto) 1.68 1.2-3.4 K/uL Monocytes # (Auto) 0.60 0.11-0.59 K/uL Eosinophils # (Auto) 0.17 0-0.5 K/uL Basophils # (Auto) 0.03 0-0.2 K/uL RDW Standard Deviation 45.6 45.5 36.4-46.3 fL RDW Coefficient of Variation 13.3 13.2 11.5-14.5 % Immature Granulocyte % (Auto) 0.4 % Immature Granulocyte # (Auto) 0.03 0.00-0.02 K/uL Prothrombin Time 9.7 9.0-12.0 SECONDS Prothromb Time International Ratio 0.9 0.9-1.1 Activated Partial Thromboplast Time 25.3 21.0-31.0 SECONDS Partial Thromboplastin Ratio 1.0 Sodium Level 135 135 136-145 mmol/L Potassium Level 4.1 3.4 3.5-5.1 mmol/L Chloride Level 102 101 98-107 mmol/L Carbon Dioxide Level 28 27 21-32 mmol/L Anion Gap 6.0 7.0 3-11 mmol/L Blood Urea Nitrogen 18 20 7-18 mg/dl Creatinine 1.03 0.95 0.60-1.40 mg/dl Estimated GFR () 80.8 89.1 Estimated GFR (Non- 69.7 76.9 BUN/Creatinine Ratio 17.6 20.9 10-20 Random Glucose 111 92 70-99 mg/dl Calcium Level 9.1 8.3 8.5-10.1 mg/dl Magnesium Level 2.5 1.8-2.4 mg/dl Total Bilirubin 0.6 0.2-1 mg/dl Direct Bilirubin 0.1 0-0.2 mg/dl Aspartate Amino Transf (AST/SGOT) 13 15-37 U/L Alanine Aminotransferase (ALT/SGPT) 26 12-78 U/L Alkaline Phosphatase 68 45-117 U/L Total Protein 7.7 6.4-8.2 gm/dl Albumin 4.2 3.4-5.0 gm/dl Thyroid Stimulating Hormone (TSH) 1.600 0.300-4.500 uIu/ml Lyme Disease IgG Antibody NEG NEG Lyme Disease IgM Antibody NEG NEG Urine Color YELLOW Urine Appearance CLEAR CLEAR Urine pH 7.5 4.5-7.5 Urine Specific [place] 1.017 1.000-1.030 Urine Protein NEG NEG Urine Glucose (UA) NEG NEG Urine Ketones NEG NEG Urine Occult Blood NEG NEG Urine Nitrite NEG NEG Urine Bilirubin NEG NEG Urine Urobilinogen NEG NEG Urine Leukocyte Esterase NEG NEG Erythrocyte Sedimentation Rate 12 0-14 mm/hr Troponin I < 0.015 0-0.045 ng/ml Est Creatinine Clear Calc Drug Dose 68.1 ml/min Estimated Average Glucose 120 mg/dl Hemoglobin A1c 5.8 4.5-5.6 % Triglycerides Level 111 0-150 mg/dl Cholesterol Level 189 0-200 mg/dl HDL Cholesterol 46 mg/dl LDL Cholesterol, Calculated 121 mg/dl VLDL Cholesterol, Calculated 22 mg/dl Cholesterol/HDL Ratio 4.1
[2017-03-09] MEDS ORDERED: PHARMACIST DISCHARGE MED REC CONSULT PRN (23:15)
[2017-03-09 23:41] VITALS: BP 167/85; PULSE 55; TEMP 36.4; O2SAT 96
[2017-03-10 03:48] VITALS: BP 119/74; PULSE 63; TEMP 36.5; O2SAT 94
[2017-03-10 06:23] LABS: HEMATOCRIT 47.8 % (42-52); HEMOGLOBIN 16.3 g/dL (14.0-18.0); MEAN CELL VOLUME 93.2 fL (80-100); MEAN CORPUSCULAR HEMOGLOBIN 31.8 pg (25-34); MEAN CORPUSCULAR HGB CONC 34.1 g/dl (32-36); PLATELET COUNT 228 K/uL (130-400); RED CELL DISTRIBUTION WIDTH CV 13.2 % (11.5-14.5); RED CELL DISTRIBUTION WIDTH SD 45.5 fL (36.4-46.3); WHITE BLOOD COUNT 7.63 K/uL (4.8-10.8)
--- NOTE | 2017-03-10 06:34 | DIAGNOSTIC IMAGING REPORT ---
ULTRASOUND OF THE CAROTID ARTERIES CLINICAL HISTORY: Transient ischemic attack COMPARISON STUDY: None. TECHNIQUE: Real-time, grayscale, and color Doppler sonography of the carotid arteries was performed. Imaging reviewed in the transverse and longitudinal planes. NASCET criteria was utilized for stenosis calcification. FINDINGS: There is minor atherosclerotic plaque present . The peak systolic velocity within the right internal carotid artery is 62 cm/sec. The systolic velocity ratio of right internal to common carotid artery is 0.6. The peak systolic velocity within the left internal carotid artery is 108 cm/sec. The systolic velocity ratio left internal to common carotid artery is 1.5. Antegrade flow is seen in the vertebral arteries. The external carotid arteries are patent. Blood pressure in the right arm measured 154 mm/Hg. Blood pressure in the left arm measured 165 mm/Hg. IMPRESSION: No evidence of hemodynamically significant carotid stenosis. Electronically signed by: Speedy Velásquez M.D. 03/10/2017 6:32 AM Dictated Date/Time: 03/10/2017 6:31 AM
[2017-03-10 06:56] LABS: CALCIUM 8.3 mg/dl (8.5-10.1); CREATININE 0.95 mg/dl (0.60-1.40); POTASSIUM 3.4 mmol/L (3.5-5.1)
[2017-03-10 07:32] VITALS: BP 135/90; PULSE 88; TEMP 36.7; O2SAT 95
--- NOTE | 2017-03-10 07:41 | Clinical Documentation Query ---
CLINICAL DOCUMENTATION QUERY Dr. RICO, In your clinical opinion is this patient being managed for: ( X ) Acute CVA ( ) Not Agree ( ) Other explanation of clinical findings (Please Explain) ( ) Unable to determine (Please Define) ( ) Need to Discuss The medical record reflects the following clinical findings, treatment, and risk factors. Clinical Indicators: 77 yo male presented with altered mental status occurring over the weekend. CT head negative for acute findings, however MRI brain showed acute infarct. Treatment: tele, pending neurology consult, PT and OT evals, neurochecks, dysphagia screening, ASA, carotid doppler. Risk Factors: age, HTN Please clarify and document your clinical opinion in the progress notes and discharge summary. Terms such as "probable", "suspected", "likely", "questionable", "possible", or "still to be ruled out" are acceptable. IF IN AGREEMENT, YOU MUST DOCUMENT ABOVE DIAGNOSTIC STATEMENT IN DAILY PROGRESS NOTES AND DISCHARGE SUMMARY. This document is not part of the patient's record. Thank You, Aimee Saavedra RN [phone]
[2017-03-10 07:45] LABS: HEMOGLOBIN A1C 5.8 % (4.5-5.6)
[2017-03-10] MEDS: HEPARIN SOD 5000 UNIT/0.5 ML CARP SQ SCH ×2 (08:19→21:53)
[2017-03-10] MEDS: ASPIRIN 81 MG ECTAB PO SCH (08:20)
[2017-03-10] MEDS ORDERED: POTASSIUM CHLORIDE 10 MEQ TABCR PO STA ×2 (08:53→23:10)
[2017-03-10] MEDS ORDERED: METOPROLOL TARTRATE 25 MG TAB PO SCH (09:00)
[2017-03-10] MEDS ORDERED: ATORVASTATIN 40 MG TAB PO SCH (09:00)
[2017-03-10] MEDS ORDERED: LISINOPRIL/HCTZ 20/12.5MG TAB PO SCH (09:00)
--- NOTE | 2017-03-10 09:20 | Progress Note ---
Progress Note Date of Service Mar 10, 2017. Progress Note ATTENDING NOTE : ACUTE CVA MRI of brain shows : Acute infarct, measuring approximately 2.6 x 0.9 cm, within the left temporooccipital region involving the left aspect of the splenium of the corpus callosum. No significant mass effect. No evidence of hemorrhagic conversion. pt is on Aspirin already added Plavix , increase Statin to Lipitor 80 mg daily for high intensity statin tx FLP: LDL 121 ( goal < 70 ) in event of acute CVA Carotid Doppler no significant stenosis D/w Dr Reddy -Neurology ordered for CTA of head and Neck to for evaluation intra/extra cranial vessels , aneurysm r/o Dissection renal function stable ( Cr 0.9 /GFR 68 ) pt will be seen by Neurology later today WIDE COMPLEX TACHYCARDIA /FREQUENT VENTRICULAR ECTOPY : on beta ronak ordered for K supplement for K 3.4 , check mg level Cardiology following
[2017-03-10] MEDS: CLOPIDOGREL BISULFATE 75 MG TAB PO SCH (09:38)
[2017-03-10] MEDS: ATORVASTATIN 40 MG TAB PO SCH (09:39)
[2017-03-10] MEDS ORDERED: OPTIRAY 320 IV PRN (10:30)
--- NOTE | 2017-03-10 10:40 | DIAGNOSTIC IMAGING REPORT ---
CT ANGIOGRAM OF THE BRAIN; CT ANGIOGRAM OF THE NECK CLINICAL HISTORY: Stroke. COMPARISON STUDY: CT and MRI of the brain dated 03/09/2017. Carotid artery ultrasound dated 03/09/2017. TECHNIQUE: Follow-up the IV administration of 94 of Optiray 320, CT angiogram of the head and neck was performed from the aortic arch to the vertex. Images are reviewed in the axial, sagittal, and coronal planes. 3-D MIPS images are created and assessed. IV contrast was administered without complication. All measurements were calculated based on NASCET criteria. A dose lowering technique was utilized adhering to the principles of ALARA. CT DOSE: 677.54 mGy.cm FINDINGS: Brain parenchyma: The brain parenchyma is normal in appearance. There is no hemorrhage, mass effect, or evidence of acute territorial ischemia by CT criteria. There is no evidence of enhancing mass lesion on the angiogram phase images. The ventricles, sulci, and cisterns are normal in configuration. Moreno-white matter differentiation is preserved. No extra-axial fluid collection is seen. Thoracic aorta: There is mild atherosclerotic calcification of the thoracic aorta. Visualized portions of the thoracic aorta are normal in caliber. The aortic arch demonstrates standard 3-vessel anatomy. Right carotid arterial system: The right common carotid artery is widely patent, as are the right internal and external carotid arteries. Calcified atherosclerotic plaque is noted in the carotid bulb. Left carotid arterial system: The left common carotid artery is widely patent, as are the left internal and external carotid arteries. Vertebral arteries: Widely patent bilaterally. The left vertebral artery is dominant. Subclavian arteries: Widely patent bilaterally. Intracranial vasculature: The internal carotid arteries are patent at the skull base, as are the anterior and middle cerebral arteries bilaterally. The vertebrobasilar system and posterior cerebral arteries are widely patent. The left vertebral artery is dominant. The right vertebral artery is diminutive and terminates as the PICA. There is no aneurysm, high-grade stenosis, or focal vessel cut off seen throughout the intracranial circulation. No dissection is seen. Jugular veins: Widely patent bilaterally. Dural sinuses: Patent. Lung apices: Partially visualized upper lobe lung parenchyma appears clear. Soft tissues: The visualized pharyngeal soft tissues are normal in appearance noting angiographic phase technique. The oropharyngeal airway appears widely patent. The salivary and thyroid glands are normal in appearance. No cervical lymphadenopathy is seen. There are calcified tonsilliths. Skeletal structures: The skeletal structures are osteopenic. The calvarium appears intact. The cervical spine is preserved noting multilevel spondylosis. Sinuses and mastoids: Mild mucosal thickening is seen in the right maxillary antrum. The remaining paranasal sinuses are clear. There is a small left mastoid effusion. The right mastoid air cells are well pneumatized. IMPRESSION: 1. There is no hemorrhage, mass effect, or evidence of acute territorial ischemia by CT criteria. The small infarct seen by MRI was not apparent on CT. 2. Unremarkable CT angiogram of the brain. 3. Unremarkable CT angiogram of the neck. Electronically signed by: John Leonardo M.D. 03/10/2017 10:39 AM Dictated Date/Time: 03/10/2017 10:30 AM
[2017-03-10 10:51] VITALS: BP 125/82; PULSE 64; TEMP 36.5; O2SAT 95
--- NOTE | 2017-03-10 14:14 | PROGRESS NOTE ---
DATE: 03/10/2017 CARDIOLOGY CONSULTATION FOLLOWUP NOTE The patient seen and examined. Chart, medications, telemetry reviewed. SUBJECTIVE: The patient feels improved this morning. Denies headache or visual changes. Notes no tachypalpitations. Notes no chest pain or shortness of breath. OBJECTIVE: VITAL SIGNS: Heart rate is 64, blood pressure is 125/82. HEENT: Normocephalic, atraumatic. Nares without discharge. Throat was clear. NECK: Supple without thyromegaly or lymphadenopathy. There are no carotid bruits. LUNGS: Clear. CARDIOVASCULAR: Regular with rare ectopy on auscultation. ABDOMEN: Soft, nontender. EXTREMITIES: Without cyanosis or clubbing. There is no peripheral edema. DATA: Reviewed. LABORATORY DATA: This morning reveal a potassium of 3.4. Cardiac enzymes have been negative since admission. Cholesterol is 189, LDL 121, HDL 46. TSH is 1.6. IMAGING DATA: MRI of the brain done last evening demonstrated evidence of an acute cerebrovascular event in the left temporal occipital region. Carotid ultrasound and CT angiography were unrevealing. Telemetry last evening demonstrated short runs of supraventricular tachycardia on 3 occasions, no atrial fibrillation or flutter distinctly observed. No further wide complex arrhythmias. IMPRESSION: A 77-year-old male with history of longstanding hypertension, presented to the Emergency Room with subacute presentation of symptoms of acute diaphoresis and flushing in the setting of emotional stress followed by transient confusion and repetitive speech. No focal motor deficits. Findings have reflected a new left temporal occipital stroke. Blood pressures on initial presentation were elevated. During Emergency Room presentation, he had a 9-beat run of a wide complex tachycardia. Since admission, he has demonstrated 3 short runs of supraventricular tachycardia, but no atrial fibrillation or flutter. RECOMMENDATIONS: Given the findings of new stroke, would recommend treating hypertension as already begun. He was previously on lisinopril, hydrochlorothiazide. Would add potassium 10 mEq per day given hyperkalemia today and arrhythmias as described. Beta ronak should be continued at current dosing. Would recommend an event monitor to be placed post-hospital discharge to exclude further atrial arrhythmias, specifically looking for need for chronic anticoagulation. Will review neurology recommendations as available. Make arrangements for patient to be seen in cardiology clinic in 4-6 weeks.
[2017-03-10 15:53] VITALS: BP 161/82; PULSE 77; TEMP 36.4; O2SAT 92
--- NOTE | 2017-03-10 16:14 | Discharge Instructions ---
Discharge Instructions Date of Service Mar 11, 2017. 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 Instructions / Follow-Up Instructions / Follow-Up HOSPITAL FOLLOW UP WITH DR AMI CAAL ON Wednesday03/16/17 @ 1: 30 PM YOU WILL BE GIVEN COPY OF THE HOSPITAL RECORDS , PLEASE TAKE WITH OFFICE APPOINTMENT FASTING LIPID PANEL CHECK IN 3-4 MONTHS ( GOAL LDL < 70 ) CARDIOLOGY FOLLOW UP WITH DR KOTA HALL IN 3-4 WEEKS, OFFICE WILL CALL WITH APPOINTMENT NEED TO HAVE HEAV[employer] DUTY CUSTODIAN ZIO PATCH FOR 14 DAYS TO RECORD HEART RHYTHM , [facility] OFFICE WILL CALL WITH APPOINTMENT NEUROLOGY FOLLOW UP WITH DR Perez IN 4 WEEKS CONTINUE ASPIRIN 81 MG DAILY FOR 1 WEEK AND PLAVIX 75 MG DAILY ( PLEASE TAKE WITH FULL STOMACH ) THEN STOP ASPIRIN CONTINUE TO TAKE PLAVIX INDEFINITELY DO NOT DRIVE FOR NEXT 1 WEEK , AFTERWARDS YOU CAN DRIVE ONLY WITH A FAMILY MEMBER PRESENT WITH YOU IN CAR TILL YOUR NEUROLOGY FOLLOW UP WITH DR Perez NEUROLOGY MAY REPEAT MRI OF BRAIN IN 1-3 MONTHS TO ASSESS THE NEW CHANGE IF THERE IS ANY CONCERN NOTED BY FAMILY FOR MR SHEEHAN'S ABILITY TO DRIVING , DR Perez's OFFICE CAN MAKE A FORMAL REFERRAL FOR DRIVING EVALUATION ( [facility] [address] -ABLE, MARTHA NUÑEZ , [facility], [employer] ) FOLLOW UP WITH SPEECH THERAPY /COGNITIVE REHAB THERAPY AT [facility] NEW MEDICATIONS : ASPIRIN 81 MG DAILY -TAKE WITH FULL STOMACH -FOR 1 WEEK PLAVIX 75 MG DAILY -TAKE WITH FULL STOMACH LOPRESSOR 25 MG TWICE DAILY LIPITOR 80 MG DAILY DRIVING RESTRICTIONS: Do not drive for 1 week , may drive with caution with a family member with accompanying , do not drive in bad weather , do not drive after dark , may need formal driving test after neurology evaluation Risk Factors for Stroke: You can reduce your chances of stroke by working with your medical provider to adopt a healthy lifestyle. Some specific ways to lower your chance of stroke are: * If you are a smoker, now is the time to stop smoking cigarettes * If you are diabetic, improve the control of your blood sugars * Avoid excessive amounts of alcohol * Control high blood pressure * Lose weight if you are overweight * Be sure to lead an active lifestyle * Eat a healthy diet low in salt, cholesterol and fat You should know about other risk factors for stroke that you are unable to control. These include: * Age 55 years or older * Male gender * Certain racial groups: , or / * Family History of Stroke, Mini stroke or Heart Attack * Sickle Cell Disease Follow Up: It is important for you to keep your follow up appointments with your medical provider. HOSPITAL FOLLOW UP WITH DR AMI CAAL ON Wednesday03/16/17 @ 1: 30 PM Current Hospital Diet Patient's current hospital diet: AHA Diet (Heart Healthy) Discharge Diet Recommended Diet: AHA Diet (Heart Healthy) Pending Studies Studies pending at discharge: no Laboratory Results Hemoglobin A1c Test 03/10/17 05:12 Range/Units Estimated Average Glucose 120 mg/dl Hemoglobin A1c 5.8 H 4.5-5.6 % Lipid Panel Test 03/10/17 05:12 Range/Units Triglycerides Level 111 0-150 mg/dl Cholesterol Level 189 0-200 mg/dl HDL Cholesterol 46 mg/dl Cholesterol/HDL Ratio 4.1 LDL Cholesterol, Calculated 121 mg/dl Medical Emergencies . Who to Call and When: Medical Emergencies: Call 911 immediately if you experience any of the following warning signs and symptoms of Stroke: * Sudden numbness or weakness of the face, arm or leg, especially on one side of the body * Sudden confusion, trouble speaking or understanding * Sudden trouble seeing in one or both eyes * Sudden trouble walking, dizziness, loss of balance or coordination * Sudden severe headache with no cause Do not delay calling 911 if you experience any warning signs or symptoms of a stroke. Delay in seeking medical attention may affect what treatments can be given to you. . Non-Emergent Contact Non-Emergency issues call your: Primary Care Provider . . "Provider Documentation" section prepared by Shweta Molina. . Stroke Core Measures Reason no t-PA for Stroke: Treatment not indicated Reason no antithrom by day 2: Treatment provided - N/A Reason no antithrom at D/C: Treatment provided - N/A Reason no statin at D/C: Treatment provided - N/A Reason no anticoag w/a fib: Treatment not indicated VTE Core Measure Inpt VTE Proph given/why not?: Unfractionated heparin SQ
[2017-03-10] MEDS ORDERED: ATOR-26 PO (16:21)
[2017-03-10] MEDS ORDERED: PLV75 PO (16:21)
[2017-03-10] MEDS ORDERED: LPR25 PO (16:21)
[2017-03-10] MEDS ORDERED: ASPEC81 PO (16:22)
--- NOTE | 2017-03-10 16:32 | Progress Note ---
Internal Med Progress Note Date of Service: Mar 10, 2017. Provider Documentation: SUBJECTIVE: awake and alert , ambulating independently no weakness or paresthesia, no dysarthria denies of any headache ,no dizzy spell or palpitation wants to be discharged home and daughter present at bedside pt and family updated regarding MRI finding of acute stroke will need to have neurology eval prior to be discharged OBJECTIVE: Vital Signs-as noted below Exam: General-elderly male, well appearing , no sign of distress Eyes-sclera non icteric , PERRLA/EOMI ENT-moist oral mucosa , normal oropharynx Neck-No JVD , trachea midline , no thyromegaly Lungs-clear to auscultate, no wheeze or rales Heart-regular S1/S2 , no JVD , no lower ext edema Abdomen-soft, non tender Extremities-no rash or deformity Neuro-AAO x3, no motor or sensory deficit , short term memory deficit Lab data as noted below. ASSESSMENT & PLAN: ACUTE CVA presented with short term memory loss /repeating same questions /labile emotion with out bursts ( very unusual for the pt ) CT head showed no acute finding MRI Of brain : Acute infarct, measuring approximately 2.6 x 0.9 cm, within the left temporooccipital region involving the left aspect of the splenium of the corpus callosum. No significant mass effect. No evidence of hemorrhagic conversion. CTA of neck and head -no acute pathology Carotid Doppler no hemodynamically significant change pt started on Aspirin /Plavix /Added high intensity statin Lipitor 80 mg daily Fasting lipid panel LDL 121 ; goal LDL < 70 Neurology consulted concern for possible cardiac arrhythmia causing acute CVA will need Zio Patch as out pt WIDE COMPLEX TACHYCARDIA /FREQUENT SVT pt reports of palpitation , feeling flutter /hearth beat on and off for some time Had 9 runs of wide complex tachycardia in ER on monitor frequent PVC's noted appreciate Cardiology eval started on Lopressor 12.5 mg BID will need Zio Patch -will need higher anticoagulation ( Coumadin vs NOAC ) if Afib/aflutter noted in cardiac monitoring out pt follow up with Cardiology in 3-4 weeks ECHO : The left ventricle is normal in size. There is moderate concentric left ventricular hypertrophy. Focal thickening of the basal septum with no evidence of left ventricular outflow obstruction. There is mild hypokinesis of the posterior lateral wall at the base and mid level. Wall motion is otherwise normal Ejection Fraction = 55-60%. Grade I diastolic dysfunction, (abnormal relaxation pattern). Aortic valve sclerosis mild, without significant aortic valvular stenosis. HYPERTENSIVE URGENCY BP was elevated in ER -possible due to acute CVA on Lopressor 12.5 mg BID resumed out pt med HCTZ /lisinopril FULL CODE DVT PROPHYLAXIS sub q heparin DISPOSITION pt will remain in tele overnight for assessment of arrhythmia Discharge home tomorrow pt will be followed at [facility] for roll on man Zio Patch needs to follow up with Neurology Cardiology follow up with Dr Sigala at [facility] Medicine follow up with Dr Almaraz Vital Signs: Date Time Temp Pulse Resp B/P (MAP) Pulse Ox O2 Delivery O2 Flow Rate FiO2 03/10/17 15:53 36.4 77 18 161/82 (108) 92 Room Air 03/10/17 12:00 Room Air 03/10/17 10:51 36.5 64 20 125/82 (96) 95 03/10/17 08:00 Room Air 03/10/17 07:32 36.7 88 20 135/90 (105) 95 Room Air 03/10/17 04:00 Room Air 03/10/17 03:48 36.5 63 17 119/74 (89) 94 Room Air 03/09/17 23:59 Room Air 03/09/17 23:41 36.4 55 18 167/85 (112) 96 Room Air 03/09/17 20:34 73 138/85 (102) 03/09/17 20:00 96 Room Air 03/09/17 18:53 36.6 71 18 147/80 (102) 96 Room Air Lab Results: Results Past 24 Hours Test 03/10/17 05:12 Range/Units White Blood Count 7.63 4.8-10.8 K/uL Red Blood Count 5.13 4.7-6.1 M/uL Hemoglobin 16.3 14.0-18.0 g/dL Hematocrit 47.8 42-52 % Mean Corpuscular Volume 93.2 80-100 fL Mean Corpuscular Hemoglobin 31.8 25-34 pg Mean Corpuscular Hemoglobin Concent 34.1 32-36 g/dl RDW Standard Deviation 45.5 36.4-46.3 fL RDW Coefficient of Variation 13.2 11.5-14.5 % Platelet Count 228 130-400 K/uL Mean Platelet Volume 10.0 7.4-10.4 fL Sodium Level 135 136-145 mmol/L Potassium Level 3.4 3.5-5.1 mmol/L Chloride Level 101 98-107 mmol/L Carbon Dioxide Level 27 21-32 mmol/L Anion Gap 7.0 3-11 mmol/L Blood Urea Nitrogen 20 7-18 mg/dl Creatinine 0.95 0.60-1.40 mg/dl Est Creatinine Clear Calc Drug Dose 68.1 ml/min Estimated GFR () 89.1 Estimated GFR (Non- 76.9 BUN/Creatinine Ratio 20.9 10-20 Random Glucose 92 70-99 mg/dl Estimated Average Glucose 120 mg/dl Hemoglobin A1c 5.8 4.5-5.6 % Calcium Level 8.3 8.5-10.1 mg/dl Magnesium Level 2.4 1.8-2.4 mg/dl Triglycerides Level 111 0-150 mg/dl Cholesterol Level 189 0-200 mg/dl HDL Cholesterol 46 mg/dl LDL Cholesterol, Calculated 121 mg/dl VLDL Cholesterol, Calculated 22 mg/dl Cholesterol/HDL Ratio 4.1
[2017-03-10] MEDS ORDERED: LORAZEPAM 0.5 MG TAB PO PRN (17:15)
--- NOTE | 2017-03-10 17:57 | Progress Note ---
Progress Note Date of Service Mar 10, 2017. Progress Note Telemetry at 5: 30 pm shows multiform PVC's short beats of wide complex beat HR in 70-80 pt felt brief episode palpitation -was talking to neurology mentions he gets episodes of palpitation on and off feels like " Heart is flip /flopping " then it goes away on it's on cont tele monitoring to assess Arrhythmia
--- NOTE | 2017-03-10 17:58 | Neurology Consultation ---
Neurology Consultation Date of Consultation: Mar 10, 2017. Attending Physician: Shweta Molina M.D. Primary Care Physician: David Almaraz M.D. Reason for Consultation: Stroke History of Present Illness Source: patient, hospital records This is a 77-year-old male who presents for evaluation of altered mental status. Reports Wednesday he had an episode of feeling flushed, presyncopal, and heavy breathing. Since then family noted that he was cognitively off. Had memory problems. Was repeating himself frequently. 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 Patient reports that he has sometimes aware of his heartbeat but denies any heart flutter. Denies any chest pain or shortness of breath. When the patient was in the emergency room he was noted to have 9 beats of tachycardia and 3 short runs of tachycardia since admission. No discrete A. fib has been recorded at this time. Patient has been seen by cardiology. Patient denies any vision changes. Denies any changes with speech or swallowing. Denies any focal weakness or numbness. Denies any trouble walking or balance. Patient denies any antiplatelets at the time of this event. Echocardiogram showed no source of cardioembolic CTA of the head and neck was unremarkable MRI report and images were reviewed by myself. 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 No tobacco use. Normal independent in his activities of daily living Smokeless Tobacco Use: No Alcohol Use: none Drug Use: none Marital Status: Housing Status: lives with significant other Occupation Status: retired Allergies Coded Allergies: Amoxicillin (Unverified Allergy, Unknown, ., 03/09/17) Current Inpatient Medications Current Inpatient Medications Medications (Trade) Dose Ordered Sig/Tj Route Start Time Stop Time Status Last Admin Dose Admin Heparin Sodium (Porcine) (Heparin Sq 5000 Unit/0.5ml) 5,000 unit Q12 SQ 03/09/17 21:00 04/08/17 20:59 03/10/17 08:19 5,000 UNIT Acetaminophen (Tylenol Tab) 650 mg Q4H PRN PO 03/09/17 13:45 04/08/17 13:44 Aspirin (Ecotrin Tab) 81 mg QAM PO 03/10/17 09:00 04/09/17 08:59 03/10/17 08:20 81 MG Miscellaneous Information (Pharmacist Discharge Med Rec Consult) 1 ea UD PRN N/A 03/09/17 23:15 04/08/17 23:14 Metoprolol Tartrate (Lopressor Tab) 12.5 mg BID PO 03/10/17 09:00 04/09/17 08:59 03/10/17 08:20 12.5 MG Atorvastatin Calcium (Lipitor Tab) 80 mg QAM PO 03/10/17 09:00 04/09/17 08:59 03/10/17 09:39 80 MG Clopidogrel Bisulfate (plAVix TAB) 75 mg QAM PO 03/10/17 09:00 04/09/17 08:59 03/10/17 09:38 75 MG Ioversol (Optiray 320) 94 ml UD PRN IV 03/10/17 10:30 03/14/17 10:29 Potassium Chloride (Klor-Con M10) 10 meq DAILY PO 03/11/17 09:00 04/10/17 08:59 HCTZ/Lisinopril (Prinzide 20-12.5MG Tab) 1 tab QAM PO 03/11/17 09:00 04/10/17 08:59 Lorazepam (Ativan Tab) 0.5 mg Q6 PRN PO 03/10/17 17:15 04/09/17 17:14 Review of Systems Complete review of systems otherwise negative except for the above-noted history of present illness Physical Exam Vital Signs (Past 24 Hrs): Date Time Temp Pulse Resp B/P (MAP) Pulse Ox O2 Delivery O2 Flow Rate FiO2 03/10/17 15:53 36.4 77 18 161/82 (108) 92 Room Air 03/10/17 12:00 Room Air 03/10/17 10:51 36.5 64 20 125/82 (96) 95 03/10/17 08:00 Room Air 03/10/17 07:32 36.7 88 20 135/90 (105) 95 Room Air 03/10/17 04:00 Room Air 03/10/17 03:48 36.5 63 17 119/74 (89) 94 Room Air 03/09/17 23:59 Room Air 03/09/17 23:41 36.4 55 18 167/85 (112) 96 Room Air 03/09/17 20:34 73 138/85 (102) 03/09/17 20:00 96 Room Air 03/09/17 18:53 36.6 71 18 147/80 (102) 96 Room Air Gen.: Patient is alert and sitting in bed, in no acute distress. HEENT: Normocephalic /atraumatic, no scleral icterus Heart: Regular rate and rhythm Extremities: No gross deformities or rashes noted Neurological examination: Mental status: Patient is alert and oriented x3. Attention and concentration normal for the situation. fair fund of knowledge. Remote and recent memory seem intact but some details maybe not correct. Speech is fluent without any dysarthria or aphasia noted Cranial nerve: Visual mai intact to counting. Funduscopic examination was unremarkable. No papilledema. Pupils equally round and reactive to light. Extraocular muscles intact without nystagmus. No facial asymmetry noted. Facial sensation intact. Tongue is midline. Good palatal elevation. Good shoulder shrug bilaterally. Hearing grossly intact to voice. Strength: 5/5 both proximal and distally in all extremities. There is no arm drift. Tone is normal. Sensation: Grossly intact to light touch in all extremities. Deep tendon reflexes: +1 in bilateral biceps, brachioradialis and patellar. Coordination: Patient had good finger to nose without dysmetria Station sitting on the side of the bed was normal Laboratory Results Past 24 Hours: 03/10/17 05:12 03/10/17 05:12 Test 03/10/17 05:12 Red Blood Count 5.13 M/uL (4.7-6.1) Mean Corpuscular Volume 93.2 fL (80-100) Mean Corpuscular Hemoglobin 31.8 pg (25-34) Mean Corpuscular Hemoglobin Concent 34.1 g/dl (32-36) RDW Standard Deviation 45.5 fL (36.4-46.3) RDW Coefficient of Variation 13.2 % (11.5-14.5) Mean Platelet Volume 10.0 fL (7.4-10.4) Anion Gap 7.0 mmol/L (3-11) Est Creatinine Clear Calc Drug Dose 68.1 ml/min Estimated GFR () 89.1 Estimated GFR (Non- 76.9 BUN/Creatinine Ratio 20.9 (10-20) Estimated Average Glucose 120 mg/dl Hemoglobin A1c 5.8 % (4.5-5.6) Calcium Level 8.3 mg/dl (8.5-10.1) Magnesium Level 2.4 mg/dl (1.8-2.4) Triglycerides Level 111 mg/dl (0-150) Cholesterol Level 189 mg/dl (0-200) HDL Cholesterol 46 mg/dl LDL Cholesterol, Calculated 121 mg/dl VLDL Cholesterol, Calculated 22 mg/dl Cholesterol/HDL Ratio 4.1 Imaging As noted above in history of present illness Impression This is a 77-year-old male who presented with episode of flushing and pre- syncope Wednesday followed by cognitive changes noted by family. Patient does have evidence of a small left ischemic stroke of the splenium aspect of the corpus callosum. Differential diagnosis includes small vessel ischemic disease versus cardioembolic. Residual neurological deficits include cognitive changes. Stroke risk factors include hypertension and dyslipidemia. Plan Agree with aspirin 81 mg daily and Plavix daily for secondary stroke prevention. In a week can stop aspirin and remain on Plavix monotherapy. If patient is found to have paroxysmal A. fib, then should stop antiplatelets and initiate anticoagulation for stroke prevention. Discussed with the patient and family about not driving for the next week due to cognitive changes. Afterwards I recommended that he drives only with a family member present until he follows up in neurology clinic. If there is any concerns about his ability to drive from family, they can give the clinic a call and we can make a formal referral for driving evaluation ([facility], [employer], [employer], [employer] ect). Agree with cardiology regarding further cardiac evaluation and cardiac monitoring to rule out A. fib. Follow-up PT/OT and speech therapies for discharge planning. Patient would benefit from cognitive rehabilitation with speech therapy ([facility]) Blood pressure recommendations while in hospital 175/95-150/80 Avoid hypotension and dehydration Stroke risk factor modifications and recommendations: Blood pressure recommendations for the first month post hospital discharge 150/ 90-130/80, and after that blood pressure recommendations 130/80-110/70 Total cholesterol goal 100- 200 and LDL goal less than 100 Hemoglobin A1c goal less than 7 (at goal) Encourage cardiovascular exercise at least 3 times a week for 30 minutes. Follow-up in neurology clinic in 1 month for post stroke hospital follow-up. Due to the appearance of the stroke on MRI, I may opt to repeat an MRI of the brain in 1-3 months to make sure that there is no changes or concerns for other etiologies. If there is any questions or concerns, feel free to call/page me.
[2017-03-10 19:10] VITALS: BP 135/72; PULSE 67; TEMP 36.8; O2SAT 94
[2017-03-10 21:56] VITALS: BP 144/82; PULSE 78
[2017-03-10] MEDS: METOPROLOL TARTRATE 25 MG TAB PO SCH (21:57)
[2017-03-11 00:19] VITALS: BP 145/89; PULSE 75; TEMP 36.8; O2SAT 95
[2017-03-11 06:38] LABS: CALCIUM 8.4 mg/dl (8.5-10.1); CREATININE 0.95 mg/dl (0.60-1.40)
[2017-03-11] MEDS: ASPIRIN 81 MG ECTAB PO SCH (07:53)
[2017-03-11] MEDS: CLOPIDOGREL BISULFATE 75 MG TAB PO SCH (07:53)
[2017-03-11] MEDS: METOPROLOL TARTRATE 25 MG TAB PO SCH (07:53)
[2017-03-11] MEDS: ATORVASTATIN 40 MG TAB PO SCH (07:53)
[2017-03-11] MEDS: HEPARIN SOD 5000 UNIT/0.5 ML CARP SQ SCH (07:55)
[2017-03-11 08:08] VITALS: BP 145/80; PULSE 85; TEMP 36.7; O2SAT 96
[2017-03-11] MEDS ORDERED: POTASSIUM CHLORIDE 10 MEQ TABCR PO SCH (09:00)
[2017-03-11] MEDS ORDERED: LISINOPRIL/HCTZ 20/12.5MG TAB PO SCH (09:00)
[2017-03-11] MEDS ORDERED: LPR25 PO (11:09)
[2017-03-11] MEDS ORDERED: POTA10CA28 PO (11:09)
[2017-03-11 11:41] VITALS: BP 141/98; PULSE 72; TEMP 36.8; O2SAT 94
[2017-03-11] MEDS ORDERED: ASPEC81 PO (11:43)
[2017-03-11] MEDS ORDERED: LSN10 PO (11:43)
--- NOTE | 2017-03-11 11:57 | Pharmacy Progress Note ---
Pharmacist Stroke Counseling Date of Service Mar 11, 2017. Scope Pharmacy has been consulted to provide medication discharge counseling for this patient admitted with ischemic stroke as per the Pharmacist Discharge Counseling for Stroke Patients Protocol. Medications on Discharge New Medications: Atorvastatin (Lipitor) 80 Mg Tab 1 TAB PO DAILY for 30 Days, #30 TAB 5 Refills Aspirin (Aspirin EC Low Dose) 81 Mg Ectab 81 MG PO QAM for 7 Days, #7 TAB Clopidogrel Bisulfate (Clopidogrel) 75 Mg Tab 75 MG PO QAM for 30 Days, #30 TAB 2 Refills Lisinopril (Zestril) 10 Mg Tab 10 MG PO QAM for 30 Days, #30 TAB 2 Refills Metoprolol Tartrate (Lopressor) 25 Mg Tab 25 MG PO BID for 30 Days, #60 TAB 2 Refills Potassium Chloride (Micro-K Ext Rel) 10 Meq Capcr 10 MEQ PO DAILY for 30 Days, #30 TABS Continued Medications: Cholecalciferol (Vitamin D) 2,000 Unit Cap 2000 UNITS PO DAILY Fish Oil (Gladys-3) 1 Ea Cap 1 CAP PO DAILY, CAP Vitamins C & E (Vitamin C) 1 Cap Cap 1 CAP PO DAILY Discontinued Medications: Lisinopril/Hctz (Zestoretic 20MG/12.5MG) Tab 1 TAB PO DAILY, TAB We spoke to Mr. Musa and his daughter. He seems to have no residual effects. 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 He is aware of his new medications. Action The above medications, specifically ones for stroke treatment/prophylaxis, have been reviewed in detail with the patient prior to discharge.This includes indication, common adverse reactions, drug interactions, and medication administration. Medication counseling has been employed using the teach-back method to ensure understanding. Outcome The patient has demonstrated understanding of the medications. Please note, they are aware that the pharmacist will call them within 72 hours post-discharge to confirm that the appropriate medications are being taken and answer any further medication related questions the patient might have at that time. Contact information Individual to be contacted: Kilo Musa Relationship to patient (if applicable): self Phone number: [phone] Best time to call: between 8am and 5pm Thank you for allowing pharmacy to be involved in the care of this patient. Please call [phone] or [phone] with any additional questions
--- NOTE | 2017-03-11 12:53 | CARDIOLOGY PROGRESS NOTE ---
DATE: 03/11/2017 CARDIOLOGY CONSULTATION FOLLOWUP NOTE The patient was seen and examined. Chart, medications, and telemetry were reviewed. SUBJECTIVE: The patient feels well this morning. Notes no dizziness or lightheadedness. Telemetry reveals ventricular ectopy and occasional complex ventricular ectopy, but no atrial arrhythmias. OBJECTIVE: VITAL SIGNS: Heart rate is 72 and blood pressure is 141/98. NECK: Thin. There is no jugular venous distention. There are no carotid bruits. LUNGS: Clear to auscultation. CARDIOVASCULAR: Regular. There is no S3 gallop. ABDOMEN: Soft and nontender. EXTREMITIES: Without cyanosis or clubbing. There is no peripheral edema. LABORATORY STUDIES: Sodium is 135, potassium is 4.0, chloride 103, bicarbonate 25, BUN 19, and creatinine 0.95. IMPRESSION: A 77-year-old male admitted with acute mental status changes in association with left temporo-occipital stroke, underlying history of hypertension, hyperlipidemia, and chronic ventricular ectopy by description and history. He had a wide complex tachycardia in the Emergency Room on presentation in the setting of acute stress and hypertension. He has had brief runs of supraventricular tachycardia on telemetry over night but no atrial fibrillation or flutter. PLAN: Continue aspirin and Plavix as ordered by our service. Continue metoprolol 25 mg twice per day for both hypertension and rhythm control. Would recommend discontinuing hydrochlorothiazide and reducing lisinopril dose to 10 mg per day to maintain hypertension control and adequate cerebral perfusion. He remains concerned regarding possible embolic source. Event monitor will be ordered and a ZIO patch to be placed on the day of discharge. SEAN
--- NOTE | 2017-03-11 15:44 | Discharge Summary ---
Discharge Summary Date of Service Mar 11, 2017. 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 No significant mass effect. No evidence of hemorrhagic conversion. CTA of neck and head -no acute pathology Carotid Doppler no hemodynamically significant change ECHO : The left ventricle is normal in size. There is moderate concentric left ventricular hypertrophy. Focal thickening of the basal septum with no evidence of left ventricular outflow obstruction. There is mild hypokinesis of the posterior lateral wall at the base and mid level. Wall motion is otherwise normal Ejection Fraction = 55-60%. Grade I diastolic dysfunction, (abnormal relaxation pattern). Aortic valve sclerosis mild, without significant aortic valvular stenosis. Consultations: NEUROLOGY DR Darren MACK [facility] CARDIOLOGY DR SIGALA Medication Reconciliation New Medications: Atorvastatin (Lipitor) 80 Mg Tab 1 TAB PO DAILY for 30 Days, #30 TAB 5 Refills Aspirin (Aspirin EC Low Dose) 81 Mg Ectab 81 MG PO QAM for 7 Days, #7 TAB Clopidogrel Bisulfate (Clopidogrel) 75 Mg Tab 75 MG PO QAM for 30 Days, #30 TAB 2 Refills Lisinopril (Zestril) 10 Mg Tab 10 MG PO QAM for 30 Days, #30 TAB 2 Refills Metoprolol Tartrate (Lopressor) 25 Mg Tab 25 MG PO BID for 30 Days, #60 TAB 2 Refills Potassium Chloride (Micro-K Ext Rel) 10 Meq Capcr 10 MEQ PO DAILY for 30 Days, #30 TABS Continued Medications: Cholecalciferol (Vitamin D) 2,000 Unit Cap 2000 UNITS PO DAILY Fish Oil ([place]-3) 1 Ea Cap 1 CAP PO DAILY, CAP Vitamins C & E (Vitamin C) 1 Cap Cap 1 CAP PO DAILY Discontinued Medications: Lisinopril/Hctz (Zestoretic 20MG/12.5MG) Tab 1 TAB PO DAILY, TAB Referrals At Discharge Follow up Referrals: [employer] Referral - Within 6 Weeks with Kota Sigala M.D. Neurologist Referral - Please Call For Appointment with Alexandra Perez D.O. Admission Information HPI (per Admitting provider): Pt is 77 y/o M with PMH HTN presented to ER with c/o altered mental status 3 days ago. Pt reports 3 days ago he "had bad day" and had to change a tire. He reports getting worked up and anxious about this. He states at that time felt anxious, felt like heart was racing and he felt diaphoretic and reports symptoms lasted a few minutes. His daughter reports that when pt returned home, he told same story several times which is unusual for pt. Pt denies any other symptoms during this episode. States following days pt not repeating himself. Does report pt forgot that he went to the store 2 days ago. Daughter reports pt was also more easily angered 3 days ago which is unlike him. Currently pt states "I feel fine". He reports hx intermittent palpitations for years. Usually occurs at night when he is on his L side. states feels palpitations for a couple of seconds which resolves with coughing or turning over. Has also experienced palpitations when he is scared or anxious which lasts a couple of seconds. Denies hx Holter monitor in past or known CAD. Denies any CP, SOB or dizziness, syncope with these palpitation episodes. Denies hx TIA/stroke. Denies hx head injury/trauma, fever/chills, N/V/D/C, SCHUSTER, dizziness, syncope, vision changes, neck pain, CP, SOB, orthopnea, PND, cough, sore throat, choking, otalgia, rhinorrhea, abdominal pain, paresthesias, weakness, extremity weakness, speech changes, facial drooping, extremity edema, urinary symptoms. In ER pt afebrile, initially hypertensive 166/117 down to 133/86. Pt reports hx white coat syndrome. He did take his BP med this am. No leukocytosis, negative U /A, negative CXR, negative head CT. EKG: NSR rate 78 with PVC. On monitor a 9 beat wide complex tachycardia captured, pt was asymptomatic. Physical Exam (per Admitting): General Appearance: WD/WN, no apparent distress Head: normocephalic, atraumatic Eyes: normal inspection, PERRL, EOMI, sclerae normal ENT: hearing grossly normal, pharynx normal Neck: supple, no JVD, trachea midline Respiratory/Chest: chest non-tender, lungs clear, normal breath sounds, no respiratory distress, no accessory muscle use Cardiovascular: regular rate, rhythm, no edema, no murmur, normal peripheral pulses Abdomen/GI: normal bowel sounds, non tender, soft Extremities/Musculoskelatal: normal inspection, normal capillary refill, no pedal edema, normal range of motion, non-tender Neurologic/Psych: unix 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 No significant mass effect. No evidence of hemorrhagic conversion. CTA of neck and head -no acute pathology Carotid Doppler no hemodynamically significant change pt started on Aspirin /Plavix /Added high intensity statin Lipitor 80 mg daily Fasting lipid panel LDL 121 ; goal LDL < 70 Neurology consulted concern for possible cardiac arrhythmia causing acute CVA arrangement made for cardiac monitoring Zio Patch as out pt WIDE COMPLEX TACHYCARDIA /FREQUENT SVT pt reports of palpitation , feeling flutter /hearth beat on and off for some time Had 9 runs of wide complex tachycardia in ER on monitor frequent PVC's noted appreciate Cardiology eval Beta ronak dose adjusted Lopressor 25 mg BID out pt Zio Patch arranged -will need higher anticoagulation ( Coumadin vs NOAC ) if Afib/aflutter noted in cardiac monitoring out pt follow up with Cardiology in 3-4 weeks ECHO : The left ventricle is normal in size. There is moderate concentric left ventricular hypertrophy. Focal thickening of the basal septum with no evidence of left ventricular outflow obstruction. There is mild hypokinesis of the posterior lateral wall at the base and mid level. Wall motion is otherwise normal Ejection Fraction = 55-60%. Grade I diastolic dysfunction, (abnormal relaxation pattern). Aortic valve sclerosis mild, without significant aortic valvular stenosis. HYPERTENSIVE URGENCY BP improved Med adjusted Added Lopressor 25 mg BID reduce Lisinopril 10 mg daily ( was 20 mg daily ) D/c HCTZ -hypokalemia /presence of arrhythmia FULL CODE DVT PROPHYLAXIS sub q heparin DISPOSITION stable to be discharged home today Contacted Pt's Family physician Dr David Almaraz office , discharge instruction faxed ordered to have pt copy of the medical records pt will be followed at [facility] [place] today for live in caregiver Zio Patch will need 2 weeks Zio patch needs to follow up with Neurology Dr Banks in 3-4 weeks Cardiology follow up with Dr Sigala at [facility] [place] -office will call with appointment Medicine follow up with Dr Almaraz Total time spent on discharge = 50 mins This includes examination of the patient, discharge planning, medication reconciliation, and communication with other providers. Discharge Instructions Discharge Instructions Date of Service Mar 11, 2017. 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 Instructions / Follow-Up Instructions / Follow-Up HOSPITAL FOLLOW UP WITH DR DAVID ALMARAZ ON Wednesday03/16/17 @ 1: 30 PM YOU WILL BE GIVEN COPY OF THE HOSPITAL RECORDS , PLEASE TAKE WITH OFFICE APPOINTMENT FASTING LIPID PANEL CHECK IN 3-4 MONTHS ( GOAL LDL < 70 ) CARDIOLOGY FOLLOW UP WITH DR KOTA SIGALA IN 3-4 WEEKS, OFFICE WILL CALL WITH APPOINTMENT NEED TO HAVE JEWEL BEARING FACER ZIO PATCH FOR 14 DAYS TO RECORD HEART RHYTHM , [facility] C[facility] OFFICE WILL CALL WITH APPOINTMENT NEUROLOGY FOLLOW UP WITH DR Perez IN 4 WEEKS CONTINUE ASPIRIN 81 MG DAILY FOR 1 WEEK AND PLAVIX 75 MG DAILY ( PLEASE TAKE WITH FULL STOMACH ) THEN STOP ASPIRIN CONTINUE TO TAKE PLAVIX INDEFINITELY DO NOT DRIVE FOR NEXT 1 WEEK , AFTERWARDS YOU CAN DRIVE ONLY WITH A FAMILY MEMBER PRESENT WITH YOU IN CAR TILL YOUR NEUROLOGY FOLLOW UP WITH DR Perez NEUROLOGY MAY REPEAT MRI OF BRAIN IN 1-3 MONTHS TO ASSESS THE NEW CHANGE IF THERE IS ANY CONCERN NOTED BY FAMILY FOR MR SHEEHAN'S ABILITY TO DRIVING , DR Perez's OFFICE CAN MAKE A FORMAL REFERRAL FOR DRIVING EVALUATION ( [facility] [address] -ABLE, MARTHA NUÑEZ , RUY, [employer] ) FOLLOW UP WITH SPEECH THERAPY /COGNITIVE REHAB THERAPY AT [facility] NEW MEDICATIONS : ASPIRIN 81 MG DAILY -TAKE WITH FULL STOMACH -FOR 1 WEEK PLAVIX 75 MG DAILY -TAKE WITH FULL STOMACH LOPRESSOR 25 MG TWICE DAILY LIPITOR 80 MG DAILY DRIVING RESTRICTIONS: Do not drive for 1 week , may drive with caution with a family member with accompanying , do not drive in bad weather , do not drive after dark , may need formal driving test after neurology evaluation Risk Factors for Stroke: You can reduce your chances of stroke by working with your medical provider to adopt a healthy lifestyle. Some specific ways to lower your chance of stroke are: * If you are a smoker, now is the time to stop smoking cigarettes * If you are diabetic, improve the control of your blood sugars * Avoid excessive amounts of alcohol * Control high blood pressure * Lose weight if you are overweight * Be sure to lead an active lifestyle * Eat a healthy diet low in salt, cholesterol and fat You should know about other risk factors for stroke that you are unable to control. These include: * Age 55 years or older * Male gender * Certain racial groups: , or / * Family History of Stroke, Mini stroke or Heart Attack * Sickle Cell Disease Follow Up: It is important for you to keep your follow up appointments with your medical provider. HOSPITAL FOLLOW UP WITH DR DAVID ALMARAZ ON Wednesday03/16/17 @ 1: 30 PM Current Hospital Diet Patient's current hospital diet: AHA Diet (Heart Healthy) Discharge Diet Recommended Diet: AHA Diet (Heart Healthy) Pending Studies Studies pending at discharge: no Laboratory Results Hemoglobin A1c Test 03/10/17 05:12 Range/Units Estimated Average Glucose 120 mg/dl Hemoglobin A1c 5.8 H 4.5-5.6 % Lipid Panel Test 03/10/17 05:12 Range/Units Triglycerides Level 111 0-150 mg/dl Cholesterol Level 189 0-200 mg/dl HDL Cholesterol 46 mg/dl Cholesterol/HDL Ratio 4.1 LDL Cholesterol, Calculated 121 mg/dl Medical Emergencies . Who to Call and When: Medical Emergencies: Call 911 immediately if you experience any of the following warning signs and symptoms of Stroke: * Sudden numbness or weakness of the face, arm or leg, especially on one side of the body * Sudden confusion, trouble speaking or understanding * Sudden trouble seeing in one or both eyes * Sudden trouble walking, dizziness, loss of balance or coordination * Sudden severe headache with no cause Do not delay calling 911 if you experience any warning signs or symptoms of a stroke. Delay in seeking medical attention may affect what treatments can be given to you. . Non-Emergent Contact Non-Emergency issues call your: Primary Care Provider . . "Provider Documentation" section prepared by Shweta Molina. . Stroke Core Measures Reason no t-PA for Stroke: Treatment not indicated Reason no antithrom by day 2: Treatment provided - N/A Reason no antithrom at D/C: Treatment provided - N/A Reason no statin at D/C: Treatment provided - N/A Reason no anticoag w/a fib: Treatment not indicated VTE Core Measure Inpt VTE Proph given/why not?: Unfractionated heparin SQ Additional Copies To Kota Sigala M.D. McDougall, Leslie S D.O.
[2017-03-12] MEDS ORDERED: LISINOPRIL 10 MG TAB PO SCH (09:00)
--- NOTE | 2017-03-15 15:13 | Pharmacy Progress Note ---
Pharmacist Post D/C Phone Note Date of phone call: Mar 15, 2017. Individual with whom pharmacist spoke to: Kilo Musa [Patient] The following questions were reviewed during the phone call with responses listed below each: Can you tell me the medications that you are currently taking as well as when and how you take each medication? - Patient was unable to name medications on his own but was able to say the number of medications and what they were for (1 for cholesterol, 2 for blood pressure, etc.). When reading down his medication list he was able to confirm they were the correct medication and how he was taking them. Reiterated that he should stop the ASA after 7 days and he was aware of this. Discussed that he stopped the lisinopril/hctz combination and started on lower dose of lisinopril. Patient said he was glad due to frequent urination with the diuretic. When have you missed any doses of your medications? - Patient states he has not missed any medications. He has two pill boxes and his and daughter help him remember. What side effects are you having from your medications? - Patient denies any side effects at this time and says he can tolerate most things. He knows common side effects of each medication (muscle pain with statin , bleeding with clopidogrel, etc.) and what to look for. What questions do you have about your medications? - Patient does not have any questions at this time. What problems are you having obtaining your medications? - Patient has not had any problems obtaining medications- he has had all of them filled. When is your next appointment with your primary care doctor? - Appointment on 03/16/[address] Almaraz Additional comments: - Mr. Musa was very pleasant and sounds like he has good support at home. Thank you for allowing us to be involved in the care of this patient. Thank you for allowing us to be involved in the care of this patient.
== END 2017-03-11 12:15 | disposition home or self-care (01) | DRG 65 ==
LOC: C.EDB 08:44 → C.2T 13:44 → ENRESERV 14:11 → OBSVTOIN 23:10
PROVIDERS: ADMIT Family Medicine; ATTEND Hospitalist
DX: I63.9 Cerebral infarction, unspecified (principal); I47.1 Supraventricular tachycardia; I10 Essential (primary) hypertension; Z86.73 Personal history of transient ischemic attack (TIA), and cerebral infarction without residual deficits; Z82.49 Family history of ischemic heart disease and other diseases of the circulatory system; Z85.828 Personal history of other malignant neoplasm of skin; R41.82 Altered mental status, unspecified

== ENCOUNTER 2021-07-21 19:31 | Inpatient (IN) ==
[2021-07-21] MEDS ORDERED: METOPROLOL TARTRATE 1 MG/ML VIAL IV STA (19:44)
[2021-07-21] MEDS ORDERED: SODIUM CHLORIDE 0.9% 500 ML IV STA (19:44)
--- NOTE | 2021-07-21 19:47 | Emergency Department Note ---
History of Present Illness General Chief complaint: Cardiac Assessment History of Present Illness 81-year-old male presents to the ED with a chief complaint of syncope. Since had a syncopal episode and EMS was called. EMS states that the patient originally was feeling okay and was refusing care. They did a twelve-lead EKG that showed a rapid wide-complex tachycardia that was at a rate of around 280. The patient's twelve-lead EKG suggest possibly A. fib with a Lopez C. The patient had a syncopal episode while EMS was there and the patient was cardioverted with 200 synchronized joules. He then converted to a slower A. fib at a rate of 115 with a right bundle branch block pattern. He had occasional P VCs. The patient states that he just was feeling very hot and does not remember the cardioversion as he was unresponsive. His initial unresponsive. Lasted for about 5 minutes, according to EMS. The patient has no specific complaints at this time other than feeling nauseated. He feels this is related to the ambulance ride here. He was given IV Zofran in route. Home Medications Medication Instructions Recorded Confirmed Type atorvastatin 80 mg tablet 80 mg PO DAILY 04/16/20 04/23/21 History clopidogrel 75 mg tablet 75 mg PO DAILY #30 tab 04/16/20 04/23/21 Rx lisinopril 10 mg tablet 10 mg PO DAILY #30 tab 04/16/20 04/23/21 Rx metoprolol succinate 25 mg 25 mg PO DAILY #30 tab 04/16/20 04/23/21 Rx tablet,extended release 24 hr Allergies Allergy/AdvReac Type Severity Reaction Status Date / Time amoxicillin Allergy Unknown . Unverified 03/09/17 09:48 Past Med/Surg History Medical History No pertinent past medical history Surgical History No pertinent past surgical history Social History Smoking Status: Never smoker Feels Safe at Home: Yes Review of Systems A total of 10 systems reviewed and were otherwise negative Physical Exam Vital Signs Vital Signs - 24 hr 07/21/21 19:45 07/21/21 19:54 07/21/21 20:05 Temperature 36.6 C 36.6 C Temperature Source Oral Oral Pulse Rate 85 87 91 H Pulse Rate [Finger] 93 H Respiratory Rate 22 18 Respiratory Effort / Characteristics Non-Labored Spontaneous Non-Labored Spontaneous Respiratory Depth Normal Normal Blood Pressure 118/85 111/80 Blood Pressure [Right Arm] 118/85 Blood Pressure Mean 96 Blood Pressure Mean [Right Arm] 96 Blood Pressure Position Lying Blood Pressure Position [Right Arm] Lying Pulse Oximetry 98 97 Oxygen Delivery Method Room Air Room Air Sepsis Recent Fever Within 48 Hours No Sepsis New/Unexplained Change in Mental Status N/A Sepsis Action Taken by Nursing No Action Required 07/21/21 20:31 Temperature Temperature Source Pulse Rate 87 Pulse Rate [Finger] Respiratory Rate 18 Respiratory Effort / Characteristics Respiratory Depth Blood Pressure 125/80 Blood Pressure [Right Arm] Blood Pressure Mean 95 Blood Pressure Mean [Right Arm] Blood Pressure Position Blood Pressure Position [Right Arm] Pulse Oximetry 96 Oxygen Delivery Method Room Air Sepsis Recent Fever Within 48 Hours Sepsis New/Unexplained Change in Mental Status Sepsis Action Taken by Nursing CONSTITUTIONAL/VITAL SIGNS: Reviewed / noted above. GENERAL: Non-toxic in appearance. INTEGUMENTARY: Warm, dry, and [place]. HEAD: Normocephalic. EYES: without scleral icterus or trauma. ENT/OROPHARYNX: clear and moist. LYMPHADENOPATHY/NECK: Is supple without lymphadenopathy or meningismus. RESPIRATORY: Clear to auscultation bilaterally. No increased work of breathing. CARDIOVASCULAR: Regular rate and rhythm. GI/ABDOMEN: Soft and nontender. No organomegaly or pulsatile mass. EXTREMITIES: Warm and well perfused. BACK: No CVA tenderness. NEUROLOGICAL: Intact without focal deficits. PSYCHIATRIC: normal affect. MUSCULOSKELETAL: Normally developed with good muscle tone. TRIAGE NURSING DOCUMENTATION REVIEWED. Course Administered Medications Discontinued Medications Aspirin (Aspirin Chew 324 Mg) 324 mg PO NOW STA Stop: 07/21/21 19:54 Last Admin: 07/21/21 20:04 Dose: 324 mg Documented by: [id number] Sodium Chloride (Nss) 500 mls @ 999 mls/hr IV .Q31M STA Stop: 07/21/21 20:14 Last Infusion: 07/21/21 20:27 Dose: 0 mls/hr Documented by: [id number] Admin: 07/21/21 20:04 Dose: 999 mls/hr Documented by: [id number] Metoprolol Tartrate (Metoprolol Tartrate 1 Mg/Ml Vial) 5 mg IV NOW STA; Protocol Stop: 07/21/21 19:45 Last Admin: 07/21/21 20:05 Dose: 5 mg Documented by: [id number] Potassium Chloride (Potassium Chloride Crtab 20 Meq Tabcr) 40 meq PO NOW STA Stop: 07/21/21 20:58 Last Admin: 07/21/21 21:04 Dose: 40 meq Documented by: [id number] Medical Decision Making Differential Diagnosis Differential includes acute cardiac dysrhythmia, microinfarction, CVA, TIA, dehydration, anemia, electrolyte disturbance, seizure, trauma, intracranial bleeding, acute vascular catastrophe, thoracic aortic dissection, PE, abdominal aortic aneurysm rupture, Medical Records Attestation: I reviewed the patient's medical records. Home Medications Current Medication List: was personally reviewed by me Laboratory Data Attestation: I reviewed the patient's lab results. Result diagrams: 07/21/21 19:41 07/21/21 19:41 Lab Results 07/21/21 07/21/21 07/21/21 Range/Units 19:41 19:41 19:41 WBC 10.84 H (4.8-10.8) K/uL RBC 4.50 L (4.7-6.1) M/uL Hgb 14.4 (14.0-18.0) g/dL Hct 43.8 (42-52) % MCV 97.3 (80-100) fL MCH 32.0 (25-34) pg MCHC 32.9 (32-36) g/dL RDW Std Deviation 48.5 H (36.4-46.3) fL RDW Coeff of Gertrudis 13.6 (11.5-14.5) % Plt Count 272 (130-400) K/uL MPV 10.2 (7.4-10.4) fL Immature Gran % (Auto) 0.4 % Neut % (Auto) 79.0 % Lymph % (Auto) 13.2 % [place] % (Auto) 6.7 % Eos % (Auto) 0.5 % Baso % (Auto) 0.2 % Neut # (Auto) 8.57 H (1.4-6.5) K/uL Lymph # (Auto) 1.43 (1.2-3.4) K/uL [place] # (Auto) 0.73 H (0.11-0.59) K/uL Eos # (Auto) 0.05 (0-0.5) K/uL Baso # (Auto) 0.02 (0-0.2) K/uL Immature Gran # (Auto) 0.04 H (0.00-0.02) K/uL PT 11.7 (9.0-12.0) Seconds INR 1.1 (0.9-1.1) APTT 21.4 (21.0-31.0) Seconds PTT Ratio 0.8 Sodium (136-145) mmol/L Potassium (3.5-5.1) mmol/L Chloride (98-107) mmol/L Carbon Dioxide (21-32) mmol/L Anion Gap (3-11) BUN (6-23) mg/dl Creatinine (0.6-1.4) mg/dl Est Cr Clr Drug Dosing ml/min Est GFR ( Amer) ml/min Est GFR (Non-Af Amer) ml/min BUN/Creatinine Ratio (10-20) Glucose (70-99(Fasting)) mg/dl Calcium (8.5-10.1) mg/dl Total Bilirubin (0.2-1.0) mg/dl AST (13-39) U/L ALT (7-52) U/L Alkaline Phosphatase (34-104) U/L Troponin I High Sens 42.9 H (0-20) pg/ml Total Protein (6.0-8.3) gm/dl Albumin (3.4-5.0) gm/dl Globulin (2.5-4.0) gm/dl Albumin/Globulin Ratio (0.9-2) Lipase (11-82) U/L TSH (0.300-4.500) uIu/ml Free T4 (0.61-1.60) ng/dl 07/21/21 07/21/21 Range/Units 19:41 19:41 WBC (4.8-10.8) K/uL RBC (4.7-6.1) M/uL Hgb (14.0-18.0) g/dL Hct (42-52) % MCV (80-100) fL MCH (25-34) pg MCHC (32-36) g/dL RDW Std Deviation (36.4-46.3) fL RDW Coeff of Gertrudis (11.5-14.5) % Plt Count (130-400) K/uL MPV (7.4-10.4) fL Immature Gran % (Auto) % Neut % (Auto) % Lymph % (Auto) % [place] % (Auto) % Eos % (Auto) % Baso % (Auto) % Neut # (Auto) (1.4-6.5) K/uL Lymph # (Auto) (1.2-3.4) K/uL [place] # (Auto) (0.11-0.59) K/uL Eos # (Auto) (0-0.5) K/uL Baso # (Auto) (0-0.2) K/uL Immature Gran # (Auto) (0.00-0.02) K/uL PT (9.0-12.0) Seconds INR (0.9-1.1) APTT (21.0-31.0) Seconds PTT Ratio Sodium 138 (136-145) mmol/L Potassium 3.7 (3.5-5.1) mmol/L Chloride 104 (98-107) mmol/L Carbon Dioxide 25 (21-32) mmol/L Anion Gap 9 (3-11) BUN 20 (6-23) mg/dl Creatinine 1.31 (0.6-1.4) mg/dl Est Cr Clr Drug Dosing 71.1 ml/min Est GFR ( Amer) 58.8 ml/min Est GFR (Non-Af Amer) 50.7 ml/min BUN/Creatinine Ratio 15.3 (10-20) Glucose 172 H (70-99(Fasting)) mg/dl Calcium 8.8 (8.5-10.1) mg/dl Total Bilirubin 1.0 (0.2-1.0) mg/dl AST 139 H (13-39) U/L ALT 102 H (7-52) U/L Alkaline Phosphatase 101 (34-104) U/L Troponin I High Sens (0-20) pg/ml Total Protein 6.1 (6.0-8.3) gm/dl Albumin 3.8 (3.4-5.0) gm/dl Globulin 2.3 L (2.5-4.0) gm/dl Albumin/Globulin Ratio 1.7 (0.9-2) Lipase 30 (11-82) U/L TSH 4.735 H (0.300-4.500) uIu/ml Free T4 1.17 (0.61-1.60) ng/dl Imaging Data Radiologist's Impression: Chest X-Ray 07/21/21 19:44 SINGLE VIEW CHEST CLINICAL HISTORY: Atypical chest pain. FINDINGS: An AP, portable, upright chest radiograph is compared to study dated 03/09/2017. The heart is enlarged noting atherosclerotic calcification of the thoracic aorta. The pulmonary vasculature is noncongested. There is bibasilar scarring/atelectasis. No airspace consolidation or large pleural effusion is identified. Scattered calcified granulomas are noted. There is a 1.6 cm nodular density at the left lung base. No pneumothorax is seen. The skeletal structures are osteopenic. The bony thorax is grossly intact. Arthritic change is seen in the shoulders. IMPRESSION: 1. Cardiomegaly with no active disease in the chest. 2. There is a 1.6 cm nodular density at the left lung base, likely representing platelike atelectasis. Follow-up with a dedicated PA and lateral examination in several weeks' time is recommended for reassessment. ACT 112: Positive. There are findings on this exam that require communication between the performing entity and the patient following Patient Test Result Information Act ([place] Act 112) guidelines. Electronically signed by: John Leonardo M.D. 07/21/2021 8:15 PM ECG Data Attestation: I personally reviewed and interpreted this ECG as follows: Additional Comments: Twelve-lead EKG here shows atrial fibrillation at a rate of 100. No history of atrial fibrillation. Occasional PVC. Bundle branch block. Increased QTC. EMS twelve-lead EKG showed a wide-complex tachycardia at a rate of around 280 with appearance of a aberrancy likely related to A. fib and a bundle branch block. MDM Narrative 81-year-old male presents after 2 syncopal episodes today one in front of EMS that showed a wide-complex tachycardia with a heart rate around 280. Twelve-kayla d looks like a rapid A. fib with aberrancy. The patient was cardioverted with 200 synchronized joules by EMS after a second syncopal episode and he was cardioverted into a atrial fibrillation with a heart rate of 115 with a right bundle branch block. His twelve-lead here shows A. fib at a rate of 100 with a right bundle branch block. Occasional PVC. Slightly widened prolonged QTC. Patient currently not having any symptoms. T4 was normal. CBC and chemistry panel was unremarkable. Troponin is elevated at 42. Patient was treated with Lopressor IV as well as p.o. aspirin some IV fluids in the ED. The patient will be seen by the hospitalist for further evaluation and care vital signs remained stable during the ED stay. Impression & Plan Atrial fibrillation with RVR, Atrial fibrillation, new onset, Syncope Discharge Plan Visit Data Chief Complaint: Cardiac Assessment ED Provider: Denis Mars Discharge Problem: Atrial fibrillation with RVR, Atrial fibrillation, new onset, Syncope Forms Stand Alone Forms: [facility] [employer] Prescriptions Prescriptions: No Action atorvastatin 80 mg tablet 80 mg PO DAILY RF: 0 clopidogrel 75 mg tablet 75 mg PO DAILY Qty: 30 RF: 2 lisinopril 10 mg tablet 10 mg PO DAILY Qty: 30 RF: 2 metoprolol succinate 25 mg tablet extended release 24 hr 25 mg PO DAILY Qty: 30 RF: 2 Referrals Referrals: David Almaraz MD [Primary Care Provider] -
[2021-07-21] MEDS ORDERED: ASPIRIN CHEW 324 MG PO STA (19:53)
[2021-07-21 20:03] LABS: Basophils # (auto) 0.02 K/uL (0-0.2); Basophils % (auto) 0.2 %; Eosinophils # (auto) 0.05 K/uL (0-0.5); Eosinophils % (auto) 0.5 %; Hematocrit (blood only) 43.8 % (42-52); Hemoglobin 14.4 g/dL (14.0-18.0); Immature Granulocytes # (auto) 0.04 K/uL (0.00-0.02); Immature Granulocytes % (auto) 0.4 %; Lymphocytes # (auto) 1.43 K/uL (1.2-3.4); Lymphocytes % (auto) 13.2 %; Mean Corpuscular Hgb Conc 32.9 g/dL (32-36); Mean Corpuscular Volume 97.3 fL (80-100); Mean Platelet Volume 10.2 fL (7.4-10.4); Monocytes # (auto) 0.73 K/uL (0.11-0.59); Monocytes % (auto) 6.7 %; Neutrophils # (auto) 8.57 K/uL (1.4-6.5); Platelet Count 272 K/uL (130-400); RDW Coefficient of Variation 13.6 % (11.5-14.5); RDW Standard Deviation 48.5 fL (36.4-46.3); White Blood Count 10.84 K/uL (4.8-10.8)
[2021-07-21 20:07] LABS: INR 1.1 (0.9-1.1); Partial Thromboplastin Ratio 0.8; Partial Thromboplastin Time 21.4 Seconds (21.0-31.0); Prothrombin Time 11.7 Seconds (9.0-12.0)
--- NOTE | 2021-07-21 20:16 | XRay Report ---
SINGLE VIEW CHEST CLINICAL HISTORY: Atypical chest pain. FINDINGS: An AP, portable, upright chest radiograph is compared to study dated 03/09/2017. The heart is enlarged noting atherosclerotic calcification of the thoracic aorta. The pulmonary vasculature is noncongested. There is bibasilar scarring/atelectasis. No airspace consolidation or large pleural eff usion is identified. Scattered calcified granulomas are noted. There is a 1.6 cm nodular density at t he left lung base. No pneumothorax is seen. The skeletal structures are osteopenic. The bony thorax i s grossly intact. Arthritic change is seen in the shoulders. IMPRESSION: 1. Cardiomegaly with no active disease in the chest. 2. There is a 1.6 cm nodular density at the left lung base, likely representing platelike atelectasis . Follow-up with a dedicated PA and lateral examination in several weeks' time is recommended for katie ssessment. ACT 112: Positive. There are findings on this exam that require communication between the performing entity and the patient following Patient Test Result Information Act ([place] Act 112) guidelines. Electronically signed by: John Loenardo M.D. 07/21/2021 8:15 PM
[2021-07-21 20:32] LABS: Albumin Globulin Ratio 1.7 (0.9-2); Albumin Level 3.8 gm/dl (3.4-5.0); BUN Creatinine Ratio 15.3 (10-20); Calcium 8.8 mg/dl (8.5-10.1); Creatinine Clr Calc Pharmacy 71.1 ml/min; Est GFR (African American) 58.8 ml/min; Est GFR (Non-African American) 50.7 ml/min; Globulin 2.3 gm/dl (2.5-4.0); Potassium 3.7 mmol/L (3.5-5.1); Thyroid Stimulating Hormone 4.735 uIu/ml (0.300-4.500); Total Protein 6.1 gm/dl (6.0-8.3)
[2021-07-21] MEDS ORDERED: POTASSIUM CHLORIDE CRTAB 20 MEQ TABCR PO STA (20:57)
[2021-07-21 21:04] LABS: T4 Free Thyroxine 1.17 ng/dl (0.61-1.60)
--- NOTE | 2021-07-21 21:46 | History & Physical Report ---
Date of Service July 21, 2021 Assessment & Plan (1) Atrial fibrillation with RVR: Plan: New onset presented as unstable tachycardia at home status post cardioversion hx PSVT as per records Troponin elevation secondary to cardioversion HTN, stable hyperlipidemia on statin Rx hx CVA, patient admits to taking Plavix every other day instead of daily secondary to easy bruising Transaminitis, patient without abdominal pain complaints Hyperglycemia likely prediabetes, hemoglobin A1c noted to be 5.8 from 2017 confinement Abnormal portable CXR, possible nodular density past tobacco abuse PCU Titrate home beta-ronak for rate control Initiate IV heparin for thromboembolic prophylaxis TTE, Cardiology consult Re: New onset A. fib Follow LFTs, liver ultrasound if with progression, hold statin Rx for now until LFTs show downward trend. Update hemoglobin A1c Outpatient CXR PA lateral Re: Possible nodular density on abnormal PCXR DVT prophylaxis. IV heparin Full code Patient daughter requesting updates from providers. Ms. Jasmyne Yuan, contact #[phone]. Text document was generated using Veracode voice recognition software. It may contain grammatical or spelling errors. Kindly contact undersigned for clarification of any documentation item in question. History of Present Illness Chief Complaint: Syncope Primary Care Provider: David Almaraz MD History obtained from patient, family, and records. Medical history significant for CVA, hypertension, hyperlipidemia, SVT as per records, past tobacco abuse. Last confinement February 2017 for acute CVA. MRI of the brain showed infarct on the left temporal occipital region. Wide-complex tachycardia/SVT during confinement. Patient seen by Cardiology during confinement. Outpatient Zio patch recommended. Last year, patient had an episode of palpitations lasting about 15 minutes, spontaneously resolving. No consultations done. Patient has not seen his PCP for about 2 years. Patient had a witnessed syncopal event today at home. Patient felt lightheaded while meeting with a group of people at home. Patient unconscious for about 5 minutes before he woke up on his own as per family. Patient had a pulse and was breathing however during period of unconsciousness. Patient denies headache, chest pain, SOB. No witnessed seizures. Compliant with home medications. No unusual stress. Patient awake upon upon EMS arrival. Wide-complex tachycardia, cardiac rate to 280s on the monitor as per report. Patient cardioverted by EMS. Patient subsequently noted to have A. fib on the monitor. Patient brought to the ER for evaluation. 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 Allergies Allergy/AdvReac Type Severity Reaction Status Date / Time amoxicillin Allergy Unknown Hives Unverified 07/21/21 22:13 Home Medications Medication Instructions Recorded Confirmed Type atorvastatin 80 mg tablet 80 mg PO DAILY 04/16/20 07/21/21 History clopidogrel 75 mg tablet 75 mg PO DAILY #30 tab 04/16/20 07/21/21 Rx diphenhydramine HCl 25 mg tablet 50 mg PO HS PRN 07/21/21 07/21/21 History lisinopril 10 1 tab PO DAILY 07/21/21 07/21/21 History mg-hydrochlorothiazide 12.5 mg tablet metoprolol tartrate 25 mg tablet 25 mg PO BID 07/21/21 07/21/21 History Past Med/Surg History Medical History No pertinent past medical history Surgical History No pertinent past surgical history Social History Smoking Status: Former smoker Second Hand Exposure: No; Do You Dip or Chew Tobacco: No; Tobacco Cessation Education Requested by Patient: No Hx Alcohol Use: No Hx Substance Use: No Preferred Language: Albanian Communication Ability: Effective Sagger Maker Required: No Beliefs That Will Affect Care: None Current Living Situation: Spouse Other Information That Helps Us Care for You: No Feels Safe at Home: Yes Safety Concerns: Feels Safe At This Time Assistive Devices: Denture - Upper and Denture - Lower Review of Systems Review of Systems: As per HPI, all other systems reviewed and negative Physical Exam Physical Exam: GENERAL: Comfortable, slightly anxious, no respiratory distress SKIN: Normal color, warm HEENT: [place] palpebral conjunctivae, no ptosis, dry buccal mucosa NECK : Supple, no tenderness CHEST : CTA, no tenderness HEART : Irregular,, no obvious murmurs ABDOMEN: Some distention, nontender EXTREMITIES : No LE swelling/tenderness, no other conspicuous deformities noted NEUROLOGIC : Coherent, no facial asymmetry, no other gross focality Results & Data Results & Data ([facility]) Vital Signs (Past 12 Hours) Vital Signs Temp Pulse Pulse Resp BP BP Pulse Ox 07/21/21 20:31 87 18 125/80 96 07/21/21 20:05 91 H 111/80 07/21/21 19:54 36.6 C 87 93 H 18 118/85 97 07/21/21 19:45 36.6 C 85 22 118/85 98 Laboratory Results Laboratory Results WBC 10.84 K/uL (4.8-10.8) H 07/21/21 19:41 RBC 4.50 M/uL (4.7-6.1) L 07/21/21 19:41 Hgb 14.4 g/dL (14.0-18.0) 07/21/21 19:41 Hct 43.8 % (42-52) 07/21/21 19:41 MCV 97.3 fL (80-100) 07/21/21 19:41 MCH 32.0 pg (25-34) 07/21/21 19:41 MCHC 32.9 g/dL (32-36) 07/21/21 19:41 RDW Std Deviation 48.5 fL (36.4-46.3) H 07/21/21 19:41 RDW Coeff of Gertrudis 13.6 % (11.5-14.5) 07/21/21 19:41 Plt Count 272 K/uL (130-400) 07/21/21 19:41 MPV 10.2 fL (7.4-10.4) 07/21/21 19:41 Immature Gran % (Auto) 0.4 % 07/21/21 19:41 Neut % (Auto) 79.0 % 07/21/21 19:41 Lymph % (Auto) 13.2 % 07/21/21 19:41 [place] % (Auto) 6.7 % 07/21/21 19:41 Eos % (Auto) 0.5 % 07/21/21 19:41 Baso % (Auto) 0.2 % 07/21/21 19:41 Neut # (Auto) 8.57 K/uL (1.4-6.5) H 07/21/21 19:41 Lymph # (Auto) 1.43 K/uL (1.2-3.4) 07/21/21 19:41 [place] # (Auto) 0.73 K/uL (0.11-0.59) H 07/21/21 19:41 Eos # (Auto) 0.05 K/uL (0-0.5) 07/21/21 19:41 Baso # (Auto) 0.02 K/uL (0-0.2) 07/21/21 19:41 Immature Gran # (Auto) 0.04 K/uL (0.00-0.02) H 07/21/21 19:41 PT 11.7 Seconds (9.0-12.0) 07/21/21 19:41 INR 1.1 (0.9-1.1) 07/21/21 19:41 APTT 21.4 Seconds (21.0-31.0) 07/21/21 19:41 PTT Ratio 0.8 07/21/21 19:41 Sodium 138 mmol/L (136-145) 07/21/21 19:41 Potassium 3.7 mmol/L (3.5-5.1) 07/21/21 19:41 Chloride 104 mmol/L (98-107) 07/21/21 19:41 Carbon Dioxide 25 mmol/L (21-32) 07/21/21 19:41 Anion Gap 9 (3-11) 07/21/21 19:41 BUN 20 mg/dl (6-23) 07/21/21 19:41 Creatinine 1.31 mg/dl (0.6-1.4) 07/21/21 19:41 Est Cr Clr Drug Dosing 71.1 ml/min 07/21/21 19:41 Est GFR ( Amer) 58.8 ml/min 07/21/21 19:41 Est GFR (Non-Af Amer) 50.7 ml/min 07/21/21 19:41 BUN/Creatinine Ratio 15.3 (10-20) 07/21/21 19:41 Glucose 172 mg/dl (70-99(Fasting)) H 07/21/21 19:41 Calcium 8.8 mg/dl (8.5-10.1) 07/21/21 19:41 Magnesium 1.8 mg/dl (1.7-2.4) 07/21/21 19:41 Total Bilirubin 1.0 mg/dl (0.2-1.0) 07/21/21 19:41 AST 139 U/L (13-39) H 07/21/21 19:41 ALT 102 U/L (7-52) H 07/21/21 19:41 Alkaline Phosphatase 101 U/L (34-104) 07/21/21 19:41 Troponin I High Sens 42.9 pg/ml (0-20) H 07/21/21 19:41 Total Protein 6.1 gm/dl (6.0-8.3) 07/21/21 19:41 Albumin 3.8 gm/dl (3.4-5.0) 07/21/21 19:41 Globulin 2.3 gm/dl (2.5-4.0) L 07/21/21 19:41 Albumin/Globulin Ratio 1.7 (0.9-2) 07/21/21 19:41 Lipase 30 U/L (11-82) 07/21/21 19:41 TSH 4.735 uIu/ml (0.300-4.500) H 07/21/21 19:41 Free T4 1.17 ng/dl (0.61-1.60) 07/21/21 19:41 SARS-CoV-2, RNA, NAAT NEGATIVE (NEGATIVE) 07/21/21 20:45 Impressions Chest X-Ray 07/21/21 19:44 SINGLE VIEW CHEST CLINICAL HISTORY: Atypical chest pain. FINDINGS: An AP, portable, upright chest radiograph is compared to study dated 03/09/2017. The heart is enlarged noting atherosclerotic calcification of the thoracic aorta. The pulmonary vasculature is noncongested. There is bibasilar scarring/atelectasis. No airspace consolidation or large pleural effusion is identified. Scattered calcified granulomas are noted. There is a 1.6 cm nodular density at the left lung base. No pneumothorax is seen. The skeletal structures are osteopenic. The bony thorax is grossly intact. Arthritic change is seen in the shoulders. IMPRESSION: 1. Cardiomegaly with no active disease in the chest. 2. There is a 1.6 cm nodular density at the left lung base, likely representing platelike atelectasis. Follow-up with a dedicated PA and lateral examination in several weeks' time is recommended for reassessment. ACT 112: Positive. There are findings on this exam that require communication between the performing entity and the patient following Patient Test Result Information Act ([place] Act 112) guidelines. Electronically signed by: John Leonardo M.D. 07/21/2021 8:15 PM Diagnostic Findings EKG as per my interpretation rate 105, atrial fibrillation, LAD, LAFB, RBBB, T wave flattening inferior leads, low voltage, PVCs
[2021-07-21] MEDS ORDERED: LACTATED RINGER'S 1,000 ML IV ONE (21:52)
[2021-07-21] MEDS ORDERED: METOPROLOL TARTRATE 25 MG TAB PO STA (21:52)
[2021-07-21] MEDS ORDERED: HEPARIN SODIUM/DEXTROSE 25,000 UNITS/500 ML BAG IV SCH (22:00)
[2021-07-21] MEDS ORDERED: ACETAMINOPHEN 325 MG TAB PO PRN (22:54)
[2021-07-21] MEDS ORDERED: PROMETHAZINE HCL 12.5 MG in SODIUM CHLORIDE 0.9% 50 ML IV PRN (22:54)
[2021-07-21] MEDS ORDERED: NITROGLYCERIN SL 0.4 MG/TAB TAB SL PRN (22:54)
[2021-07-22 02:17] LABS: Partial Thromboplastin Ratio 0.8; Partial Thromboplastin Time 23.2 Seconds (21.0-31.0)
[2021-07-22] MEDS: Heparin IV Adult Wt-Based Low-Dose *NO* Bolus Protocol IV SCH ×5 (02:32→03:47)
[2021-07-22] MEDS ORDERED: METOPROLOL TARTRATE 50 MG TAB PO SCH (04:00)
[2021-07-22] MEDS ORDERED: ACETAMINOPHEN 325 MG TAB PO PRN (04:18)
[2021-07-22 06:33] LABS: Basophils # (auto) 0.01 K/uL (0-0.2); Basophils % (auto) 0.1 %; Eosinophils # (auto) 0.02 K/uL (0-0.5); Eosinophils % (auto) 0.3 %; Hematocrit (blood only) 42.2 % (42-52); Hemoglobin 13.9 g/dL (14.0-18.0); Immature Granulocytes # (auto) 0.04 K/uL (0.00-0.02); Immature Granulocytes % (auto) 0.5 %; Lymphocytes # (auto) 1.59 K/uL (1.2-3.4); Lymphocytes % (auto) 21.1 %; Mean Corpuscular Hemoglobin 31.4 pg (25-34); Mean Corpuscular Hgb Conc 32.9 g/dL (32-36); Mean Corpuscular Volume 95.5 fL (80-100); Mean Platelet Volume 10.6 fL (7.4-10.4); Monocytes # (auto) 0.72 K/uL (0.11-0.59); Monocytes % (auto) 9.6 %; Neutrophils # (auto) 5.15 K/uL (1.4-6.5); Neutrophils % (auto) 68.4 %; Platelet Count 254 K/uL (130-400); RDW Coefficient of Variation 13.8 % (11.5-14.5); RDW Standard Deviation 48.5 fL (36.4-46.3); Red Blood Count 4.42 M/uL (4.7-6.1); White Blood Count 7.53 K/uL (4.8-10.8)
[2021-07-22 06:55] LABS: Albumin Level 3.7 gm/dl (3.4-5.0); BUN Creatinine Ratio 17.8 (10-20); Bilirubin Direct 0.3 mg/dl (0-0.2); Bilirubin,Total 1.2 mg/dl (0.2-1.0); Calcium 8.8 mg/dl (8.5-10.1); Creatinine Clr Calc Pharmacy 52.4 ml/min; Est GFR (African American) 75.1 ml/min; Est GFR (Non-African American) 64.8 ml/min; Potassium 3.9 mmol/L (3.5-5.1)
[2021-07-22 07:26] LABS: Estimated Average Glucose 128 mg/dl; Hemoglobin A1C 6.1 % (4.5-5.6)
[2021-07-22] MEDS: CLOPIDOGREL BISULFATE 75 MG TAB PO SCH (07:57)
[2021-07-22] MEDS: lisinopril 10 MG TAB PO SCH (07:57)
[2021-07-22 08:36] LABS: Partial Thromboplastin Ratio 1.3; Partial Thromboplastin Time 35.3 Seconds (21.0-31.0)
[2021-07-22] MEDS ORDERED: METOPROLOL TARTRATE 25 MG TAB PO SCH (09:00)
[2021-07-22] MEDS ORDERED: ATORVASTATIN 40 MG TAB PO SCH (09:00)
[2021-07-22] MEDS ORDERED: HEPARIN SOD (PORCINE) 1000 UNIT/ML IV ONE (09:30)
[2021-07-22 09:38] LABS: iSTAT Creatinine 1.2 mg/dl (0.6-1.3); iSTAT Hemoglobin 14.6 g/dl (14.0-18.0); iSTAT Ionized Calcium 1.14 mmol/l (1.12-1.32); iSTAT Potassium 3.7 mmol/L (3.3-5.0)
--- NOTE | 2021-07-22 09:42 | Electrocardiogram Report ---
Test Reason : Blood Pressure : / mmHG Vent. Rate : 101 BPM Atrial Rate : 104 BPM P-R Int : 000 ms QRS Dur : 162 ms QT Int : 428 ms P-R-T Axes : 000 -46 -39 degrees QTc Int : 554 ms Atrial fibrillation with rapid ventricular response with premature ventricular or aberrantly conducte d complexes Left axis deviation Right bundle branch block Abnormal ECG When compared with ECG of 11-MAR-2017 08:29, Atrial fibrillation has replaced Sinus rhythm Right bundle branch block is now Present Confirmed by Emmanuel Medel ([id number]) on 07/22/2021 9:41:48 AM Referred By: REFERRED SELF Confirmed By:Emmanuel Medel
[2021-07-22] MEDS ORDERED: Nursing to Pharmacy Communication SCH ×2 (10:00→10:15)
--- NOTE | 2021-07-22 10:31 | Cardiology Consultation ---
Date of Consultation July 22, 2021 Assessment & Plan (1) Syncope: (2) Wide-complex tachycardia: (3) Elevated troponin: (4) New onset atrial fibrillation: (5) Hypertension: (6) Hematuria: (7) Prolonged QT interval: 81-year-old male admitted following a witnessed syncopal episode. EKG obtained by the medics revealed a wide-complex tachycardia at a rate of approximately 280 bpm, consistent with ventricular tachycardia as per my interpretation. Elevated Troponin, appearing to be multifactorial in etiology, with clinical concern for significant obstructive coronary artery disease, NSTEMI New onset atrial flutter/fibrillation with a rapid ventricular response Hematuria in AM of 07/22/2021, while on heparin Prolonged QTc interval Right bundle branch block Transaminitis History of PSVT Hypertension Dyslipidemia History of CVA, 2017 RECOMMENDATIONS/PLAN: Titrate metoprolol Maintain normokalemia and normomagnesemia. Refer for resting echocardiography NPO after midnight, cardiac catheterization on 07/23/2021 Hold heparin, RE: hematuria Avoid QTC prolonging medications, decongestants, stimulants, etc. No driving Supervising Physician Co-Signing Physician Notes Supervising Physician Attestation: I have personally performed a history and physical examination on the patient. I agree with the physician periodicals library assistant's findings and plan as documented with the following additions. 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 2 weeks ago he had an episode that he characterized as having a "hot flash "with associated dizziness. This is the first time he ever felt this. It went away on its own. Yesterday he had a more prolonged episode with feeling warm, cold, sweaty, dizzy, and impending sense of doom. On arrival, EMS tracings recorded both atrial fibrillation with rapid ventricular response, right bundle branch block, and a separate wide-complex tachycardia consistent with ventricular tachycardia. Of note, patient had been seen in cardiology consultation in 2017 x 1 my colleagues at which time he had been diagnosed with a left temporal occipital stroke, with telemetry findings of brief runs of supraventricular tachycardia, PVCs, and an episode of wide-complex tachycardia had been noted on telemetry at that time which was felt to be union representative of ventricular tachycardia or supraventricular tachycardia with aberrant conduction. In addition to treatment metoprolol, cardiology follow-up had been recommended at that time, but not pursued. Also of note, at the time of my assessment, IV heparin infusion was in process. Patient had just been to the restroom and noted a mild degree of gross hematuria. Exam: Cardiovascular: Regular rhythm, 1/6 systolic murmur Data: Echocardiogram performed today and reviewed independently, atrial fibrillation w ith ventricular rate in the range of 100 to 108 bpm present during the echocardiogram. A moderate sized inferior, inferolateral wall motion abnormality present with akinesis of the segments at the basal and mid levels. Otherwise moderate global left ventricular hypokinesis present with severe left ventricular systolic dysfunction, LVEF in the range of 25-30%. Mild left atrial dilatation. Modera te right atrial dilatation. Moderate tricuspid regurgitation. Compared to the prior study performed in 2017, the inferior, inferolateral lateral wall motion abnormality has expanded, left ventricular systolic dysfunction is not present Assessment and Plan: Paroxysmal nonsustained ventricular tachycardia Newly recognized atrial fibrillation Newly recognized left ventricular systolic dysfunction. -titrate metoprolol. -holding heparin for hematuria. -cardiac catheterization , likely within next 24 hours. Mack Sim DO History of Present Illness Reason for Consultation: Atrial fibrillation Requesting Physician: Dillon Attending Physician: Laurie History of Present Illness Mr. Kilo Musa is a very pleasant 81-year-old male who is being seen today at the request of Dr. Leach. Reason for consultation is atrial fibrillation. The patient describes to the undersigned at least 2 episodes over the last 2 weeks of significant acute onset flushing followed by weakness traveling into the shoulders and down the arms with what he describes as "impending doom." These episodes first appeared approximately 1 to 2 years ago. He notes thinking these episodes were panic attacks. Notes taking additional metoprolol with improvement after about 25 minutes to 1 hour. Yesterday, while at home in front of a group of people, patient notes sudden onset flushing followed by a syncopal episode lasting five minutes in duration per patient report. EMS was summoned. Initial EKG revealed a wide-complex tachycardia at approximately 280 bpm. The patient apparently had loss of consciousness witnessed by EMS, undergoing cardioversion with 200 J synchronized shock with conversion to atrial fibrillation with a rapid ventricular response with a right bundle branch block pattern and occasional PVCs. The patient was transported to the [facility] ER. In route, he was given IV Zofran for nausea. In the ER he was evaluated by Dr. Mars, receiving 5 mg IV metoprolol, 40 M EQ's oral potassium chloride, and 324 mg of aspirin. Ate breakfast. + Hematuria this AM. No exertional chest pain. No unusual shortness of breath. No orthopnea, PND, or lower extremity peripheral edema. Past Medical and Surgical History: Left temporal occipital region, February 2017 Wide-complex tachycardia, ventricular ectopy, SVT noted when hospitalized in February 2017. Hypertension Dyslipidemia Social History: Remote history of tobacco abuse, quitting at the age of 27. No alcohol. No illegal drug use. [id number] medications include as needed Benadryl, Zyrtec, Tylenol, and ibuprofen Family History: Mother at the age of 92. Father at the age of 67 with colon cancer. Three brothers, one with atrial fibrillation, followed by Dr. Medel Complete Review of Systems: Constitutional: No change in weight. No fevers, night sweats, or chills. HEENT: No amaurosis fugax. Pulmonary: No history of sleep apnea; he has had episodes described as panic attacks with associated tachypalpitations that have awoken him from sleep. No history of pulmonary embolism, COPD or asthma. Cardiac: See above. GI/Abd: No dysphagia. No melana or hematochezia. : Hematuria this morning, on heparin. No liver or kidney problems. Vascular: No history of claudication. No history of AAA. Hematologic: No coagulation disorder. No history of anemia. Musculoskeletal: + Arthritis. Ski n: No rash. Neurologic: + History of CVA. No history of seizure. Endocrine: No thyroid issues. Complete Review of Systems is as stated above, negative, or noncontributory. Allergies Allergy/AdvReac Type Severity Reaction Status Date / Time amoxicillin Allergy Unknown Hives Unverified 07/21/21 22:13 Home Medications Medication Instructions Recorded Confirmed Type atorvastatin 80 mg tablet 80 mg PO DAILY 04/16/20 07/21/21 History clopidogrel 75 mg tablet 75 mg PO DAILY #30 tab 04/16/20 07/21/21 Rx diphenhydramine HCl 25 mg tablet 50 mg PO HS PRN 07/21/21 07/21/21 History lisinopril 10 1 tab PO DAILY 07/21/21 07/21/21 History mg-hydrochlorothiazide 12.5 mg tablet metoprolol tartrate 25 mg tablet 25 mg PO BID 07/21/21 07/21/21 History Patient History Medical History No pertinent past medical history Surgical History No pertinent past surgical history Social History Smoking Status: Former smoker Second Hand Exposure: No; Do You Dip or Chew Tobacco: No; Tobacco Cessation Education Requested by Patient: No Hx Alcohol Use: No Hx Substance Use: No Preferred Language: Upper Sorbian Communication Ability: Effective Manager System Required: No Beliefs That Will Affect Care: None Current Living Situation: Spouse Other Information That Helps Us Care for You: No Feels Safe at Home: Yes Safety Concerns: Feels Safe At This Time Assistive Devices: Denture - Upper and Denture - Lower Physical Exam Physical Exam: General: A&Ox3. NAD. HENT: Normocephalic. Atraumatic. Eyes: PER. Conjunctiva pink, sclera clear. Neck: No carotid bruits. No JVD. No HJR. Heart: Irregularly irregular around 100 bpm. Soft systolic murmur at the LLSB and apex. PMI is displaced. Lungs: Clear to auscultation. Abdomen: +BS. Soft. Nontender. No masses or organomegaly. Extremities: No clubbing, cyanosis, or edema. Limited neurological examination is without focal deficits. Pulses: radial=2/4, posterior tibial=2/4. Results & Data ([facility]) Vital Signs (Past 12 Hours) Vital Signs Temp Pulse Resp BP BP Pulse Ox 07/22/21 07:11 36.9 C 111 H 18 122/93 95 07/22/21 05:37 139 H 122/94 07/22/21 03:08 36.5 C 113 H 18 123/88 07/21/21 22:45 36.6 C 115 H 18 127/89 99 Laboratory Results Laboratory Results - last 24 hr 07/21/21 07/21/21 07/21/21 19:41 19:41 19:41 WBC 10.84 H RBC 4.50 L Hgb 14.4 POC Hgb Hct 43.8 POC Hct MCV 97.3 MCH 32.0 MCHC 32.9 RDW Std Deviation 48.5 H RDW Coeff of Gertrudis 13.6 Plt Count 272 MPV 10.2 Immature Gran % (Auto) 0.4 Neut % (Auto) 79.0 Lymph % (Auto) 13.2 [place] % (Auto) 6.7 Eos % (Auto) 0.5 Baso % (Auto) 0.2 Neut # (Auto) 8.57 H Lymph # (Auto) 1.43 [place] # (Auto) 0.73 H Eos # (Auto) 0.05 Baso # (Auto) 0.02 Immature Gran # (Auto) 0.04 H PT 11.7 INR 1.1 APTT 21.4 PTT Ratio 0.8 POC Sodium Sodium POC Potassium Potassium POC Chloride Chloride Carbon Dioxide POC Total CO2 Anion Gap POC Anion Gap POC BUN BUN Creatinine POC Creatinine Est Cr Clr Drug Dosing Est GFR ( Amer) Est GFR (Non-Af Amer) BUN/Creatinine Ratio Glucose POC Glucose (other) Estimat Average Glucose Hemoglobin A1c Calcium POC Ioniz Calcium Debora Magnesium Total Bilirubin Direct Bilirubin AST ALT Alkaline Phosphatase Total Creatine Kinase Troponin I High Sens 42.9 H Total Protein Albumin Globulin Albumin/Globulin Ratio Lipase TSH Free T4 SARS-CoV-2, RNA, NAAT 07/21/21 07/21/21 07/21/21 19:41 19:41 19:41 WBC RBC Hgb POC Hgb Hct POC Hct MCV MCH MCHC RDW Std Deviation RDW Coeff of Gertrudis Plt Count MPV Immature Gran % (Auto) Neut % (Auto) Lymph % (Auto) [place] % (Auto) Eos % (Auto) Baso % (Auto) Neut # (Auto) Lymph # (Auto) [place] # (Auto) Eos # (Auto) Baso # (Auto) Immature Gran # (Auto) PT INR APTT PTT Ratio POC Sodium Sodium 138 POC Potassium Potassium 3.7 POC Chloride Chloride 104 Carbon Dioxide 25 POC Total CO2 Anion Gap 9 POC Anion Gap POC BUN BUN 20 Creatinine 1.31 POC Creatinine Est Cr Clr Drug Dosing 71.1 Est GFR ( Amer) 58.8 Est GFR (Non-Af Amer) 50.7 BUN/Creatinine Ratio 15.3 Glucose 172 H POC Glucose (other) Estimat Average Glucose Hemoglobin A1c Calcium 8.8 POC Ioniz Calcium Debora Magnesium 1.8 Total Bilirubin 1.0 Direct Bilirubin AST 139 H ALT 102 H Alkaline Phosphatase 101 Total Creatine Kinase Troponin I High Sens Total Protein 6.1 Albumin 3.8 Globulin 2.3 L Albumin/Globulin Ratio 1.7 Lipase 30 TSH 4.735 H Free T4 1.17 SARS-CoV-2, RNA, NAAT 07/21/21 07/21/21 07/21/21 19:41 19:49 20:45 WBC RBC Hgb POC Hgb 14.6 Hct POC Hct 43 MCV MCH MCHC RDW Std Deviation RDW Coeff of Gertrudis Plt Count MPV Immature Gran % (Auto) Neut % (Auto) Lymph % (Auto) [place] % (Auto) Eos % (Auto) Baso % (Auto) Neut # (Auto) Lymph # (Auto) [place] # (Auto) Eos # (Auto) Baso # (Auto) Immature Gran # (Auto) PT INR APTT PTT Ratio POC Sodium 138 Sodium POC Potassium 3.7 Potassium POC Chloride 103 Chloride Carbon Dioxide POC Total CO2 23 L Anion Gap POC Anion Gap 17.0 POC BUN 20 H BUN Creatinine POC Creatinine 1.2 Est Cr Clr Drug Dosing Est GFR ( Amer) Est GFR (Non-Af Amer) BUN/Creatinine Ratio Glucose POC Glucose (other) 179 H Estimat Average Glucose 128 Hemoglobin A1c 6.1 H Calcium POC Ioniz Calcium Debora 1.14 Magnesium Total Bilirubin Direct Bilirubin AST ALT Alkaline Phosphatase Total Creatine Kinase Troponin I High Sens Total Protein Albumin Globulin Albumin/Globulin Ratio Lipase TSH Free T4 SARS-CoV-2, RNA, NAAT NEGATIVE 07/22/21 07/22/21 07/22/21 01:23 05:26 05:26 WBC 7.53 RBC 4.42 L Hgb 13.9 L POC Hgb Hct 42.2 POC Hct MCV 95.5 MCH 31.4 MCHC 32.9 RDW Std Deviation 48.5 H RDW Coeff of Gertrudis 13.8 Plt Count 254 MPV 10.6 H Immature Gran % (Auto) 0.5 Neut % (Auto) 68.4 Lymph % (Auto) 21.1 [place] % (Auto) 9.6 Eos % (Auto) 0.3 Baso % (Auto) 0.1 Neut # (Auto) 5.15 Lymph # (Auto) 1.59 [place] # (Auto) 0.72 H Eos # (Auto) 0.02 Baso # (Auto) 0.01 Immature Gran # (Auto) 0.04 H PT INR APTT 23.2 PTT Ratio 0.8 POC Sodium Sodium 137 POC Potassium Potassium 3.9 POC Chloride Chloride 106 Carbon Dioxide 22 POC Total CO2 Anion Gap 9 POC Anion Gap POC BUN BUN 19 Creatinine 1.07 POC Creatinine Est Cr Clr Drug Dosing 52.4 Est GFR ( Amer) 75.1 Est GFR (Non-Af Amer) 64.8 BUN/Creatinine Ratio 17.8 Glucose 97 POC Glucose (other) Estimat Average Glucose Hemoglobin A1c Calcium 8.8 POC Ioniz Calcium Debora Magnesium Total Bilirubin 1.2 H Direct Bilirubin 0.3 H AST 63 H ALT 83 H Alkaline Phosphatase 94 Total Creatine Kinase 71 Troponin I High Sens Total Protein 6.0 Albumin 3.7 Globulin Albumin/Globulin Ratio Lipase TSH Free T4 SARS-CoV-2, RNA, NAAT 07/22/21 07/22/21 07/22/21 05:26 05:26 08:03 WBC RBC Hgb POC Hgb Hct POC Hct MCV MCH MCHC RDW Std Deviation RDW Coeff of Gertrudis Plt Count MPV Immature Gran % (Auto) Neut % (Auto) Lymph % (Auto) [place] % (Auto) Eos % (Auto) Baso % (Auto) Neut # (Auto) Lymph # (Auto) [place] # (Auto) Eos # (Auto) Baso # (Auto) Immature Gran # (Auto) PT INR APTT 35.3 H PTT Ratio 1.3 POC Sodium Sodium POC Potassium Potassium POC Chloride Chloride Carbon Dioxide POC Total CO2 Anion Gap POC Anion Gap POC BUN BUN Creatinine POC Creatinine Est Cr Clr Drug Dosing Est GFR ( Amer) Est GFR (Non-Af Amer) BUN/Creatinine Ratio Glucose POC Glucose (other) Estimat Average Glucose Hemoglobin A1c Calcium POC Ioniz Calcium Debora Magnesium 1.8 Total Bilirubin Direct Bilirubin AST ALT Alkaline Phosphatase Total Creatine Kinase Troponin I High Sens 577.6 H* D Total Protein Albumin Globulin Albumin/Globulin Ratio Lipase TSH Free T4 SARS-CoV-2, RNA, NAAT Diagnostic Findings EKG on presentation revealed atrial fibrillation with a rapid ventricular response with premature ventricular or aberrantly conducted complexes, left axis deviation, right bundle branch block. QTc 554 ms. Continuous telemetry monitoring reveals atrial flutter/fibrillation with heart rates typically in the 90s to 100s.
--- NOTE | 2021-07-22 13:08 | Hospitalist Progress Note ---
Date of Service July 22, 2021 Assessment & Plan Plan: A fib V tach SVT -Appreciate Cardiology input, plan for Cath tomorrow -holding heparin drip for now due to hematuria this morning -continue metoprolol 50mg BID -TSH mildly elevated but Free T4 normal Cardiomyopathy TR regurgitation Mild Pulm HTN TTE shows EF 25-30% which is worse compared to prior, plan for cath per Cardiology -Already on metoprolol 50mg BID, lisinopril 20mg daily -On exam, appears euvolemic Mild transaminitis -possibly due to syncopal (hypotensive?) episode in the field. No abdominal pain, LFTs are now down trending -will monitor for now. Consider RUQ u/s if symptoms or if LFTs rise again DVT ppx -holding heparin due to hematuria Admission and Anticipated Discharge Date Admission Date: July 21, 2021 Subjective Patient feels well Remains in A fib on telemetry Had hematuria this morning Physical Exam Physical Exam: Appears stated age, sitting in bed, no acute distess Respiratory: breathing comfortably on room air, no wheezing/rhonchi/rales Cardiovascular: Irregular but not rapid Gastrointestinal (Abdomen): soft, non tender, non distended Musculoskeletal: No edema Neurologic: awake, alert, spontaneously moving extremities Results & Data Results & Data ([facility]) Vital Signs (Past 12 Hours) Vital Signs Temp Pulse Resp BP BP Pulse Ox 07/22/21 11:33 36.9 C 102 H 17 115/80 95 07/22/21 07:11 36.9 C 111 H 18 122/93 95 07/22/21 05:37 139 H 122/94 07/22/21 03:08 36.5 C 113 H 18 123/88 Laboratory Results Short CBC 07/21/21 07/22/21 Range/Units 19:41 05:26 WBC 10.84 H 7.53 (4.8-10.8) K/uL Hgb 14.4 13.9 L (14.0-18.0) g/dL Hct 43.8 42.2 (42-52) % Plt Count 272 254 (130-400) K/uL BMP 07/21/21 07/22/21 19:41 05:26 Sodium 138 137 Potassium 3.7 3.9 Chloride 104 106 Carbon Dioxide 22 BUN 20 19 Creatinine 1.31 1.07 Glucose 172 H 97 Calcium 8.8 8.8 Cardiac Enzymes 04/26/22 Range/Units 05:26 Total Creatine Kinase 71 (30-223) U/L Liver Function 07/21/21 07/22/21 Range/Units 19:41 05:26 Total Bilirubin 1.0 1.2 H (0.2-1.0) mg/dl Direct Bilirubin 0.3 H (0-0.2) mg/dl AST 139 H 63 H (13-39) U/L ALT 102 H 83 H (7-52) U/L Alkaline Phosphatase 101 94 (34-104) U/L Albumin 3.8 3.7 (3.4-5.0) gm/dl Medications Administered Current Inpatient Medications Acetaminophen (Acetaminophen 325 Mg Tab) 325 mg PO Q6H PRN PRN Reason: Mild Pain Stop: 08/21/21 04:17 Clopidogrel Bisulfate (Clopidogrel Bisulfate 75 Mg Tab) [facility] [place] Stop: 08/21/21 08:59 Last Admin: 07/22/21 07:57 Dose: 75 mg Documented by: Heparin Sodium/Dextrose (Heparin Sodium/Dextrose) 25,000 units in 500 mls @ 0 mls/hr IV .Q0M [facility]; Protocol Stop: 08/20/21 21:59 Last Titration: 07/22/21 10:16 Dose: 0 units/hr, 0 mls/hr Documented by: Promethazine HCl 12.5 mg/ (Sodium Chloride) 50.5 mls @ 202 mls/hr IV Q6H PRN PRN Reason: Nausea And Vomiting Stop: 08/20/21 22:53 Lisinopril (Lisinopril 10 Mg Tab) 10 mg PO [facility] Stop: 08/21/21 08:59 Last Admin: 07/22/21 07:57 Dose: 10 mg Documented by: Metoprolol Tartrate (Metoprolol Tartrate 50 Mg Tab) 50 mg PO BID [facility] Stop: 08/21/21 03:59 Last Admin: 07/22/21 05:38 Dose: 50 mg Documented by: Nitroglycerin (Nitroglycerin Sl 0.4 Mg/Tab Tab) 0.4 mg SL UD PRN PRN Reason: Chest Pain Stop: 08/20/21 22:53 Tramadol HCl (Tramadol Hcl 50 Mg Tablet) 25 - 50 mg PO Q4H PRN PRN Reason: Pain Stop: 08/20/21 22:53
[2021-07-22] MEDS ORDERED: niCARdipine HCL INJ 2.5 MG/ML 10 ML AMP ONE (14:19)
[2021-07-22] MEDS ORDERED: NITROGLYCERIN/D5W 100MCG/ML 20ML SYR ONE (14:19)
[2021-07-22] MEDS ORDERED: HEPARIN (PORCINE) 1000 UNIT/ML 10 ML (CATH LAB USE ONLY) ONE (14:19)
[2021-07-22] MEDS ORDERED: fentaNYL citrate 100 MCG/2 ML VIAL ONE (14:19)
[2021-07-22] MEDS ORDERED: MIDAZOLAM HCL 1 MG/ML 2ML VIAL ONE (14:19)
[2021-07-22] MEDS ORDERED: ASPIRIN 81 MG CHEW ONE (14:40)
--- NOTE | 2021-07-22 15:49 | Pre Anesthesia Assessment ---
Date of Service July 22, 2021 Pre Sedation Assessment Vital Signs Temp Pulse Pulse Resp BP BP BP 07/22/21 14:37 120 H 20 133/95 07/22/21 11:33 98.4 F 102 H 17 115/80 07/22/21 07:11 98.4 F 111 H 18 122/93 07/22/21 05:37 139 H 122/94 07/22/21 03:08 97.7 F 113 H 18 123/88 07/21/21 22:45 97.9 F 115 H 18 127/89 07/21/21 22:00 102 H 18 127/95 07/21/21 21:45 107 H 19 126/81 07/21/21 21:30 100 H 21 120/98 07/21/21 21:16 88 14 111/89 07/21/21 21:15 88 18 07/21/21 21:00 84 23 120/98 07/21/21 20:45 90 20 128/98 07/21/21 20:31 87 18 125/80 07/21/21 20:30 87 15 125/90 07/21/21 20:16 89 20 110/90 07/21/21 20:15 91 H 18 07/21/21 20:05 91 H 111/80 07/21/21 20:03 88 21 07/21/21 19:54 97.9 F 87 93 H 18 118/85 07/21/21 19:45 97.9 F 85 22 118/85 Pulse Ox 07/22/21 14:37 96 07/22/21 11:33 95 07/22/21 07:11 95 07/22/21 05:37 07/22/21 03:08 07/21/21 22:45 99 07/21/21 22:00 98 07/21/21 21:45 97 07/21/21 21:30 98 07/21/21 21:16 94 07/21/21 21:15 97 07/21/21 21:00 96 07/21/21 20:45 93 07/21/21 20:31 96 07/21/21 20:30 98 07/21/21 20:16 91 07/21/21 20:15 98 07/21/21 20:05 07/21/21 20:03 93 07/21/21 19:54 97 07/21/21 19:45 98 Cardiovascular RRR, no murmur, no edema Respiratory normal respiratory effort, lungs clear to auscultation Pre-Sedation Airway Assessment Smoking Status: Former smoker Hx Sleep Apnea: No Hx Difficult Intubation: No Short, Thick Neck: Yes Thyromental Distance: > or= 3.5 Finger Breadths Oral Cavity: + WNL Mallampati Class: I ASA: ASA3 NPO Status Date of Last Intake of Fluids: 07/22/21 Time of Last Intake of Fluids: 11:30 Date of Last Intake of Solid Food: 07/22/21 Time of Last Intake of Solid Foods: 11:30 Procedure Planning Contraindications for Sedation: none Current Medications Reviewed: Yes Notes The planned sedation has been discussed with the patient. Informed Consent was obtained. I have identified the patient, determined the appropriateness of sedation and have assessed the patient immediately prior to the procedure. All medicine(s) and interventions are by my order.
--- NOTE | 2021-07-22 16:24 | Communication Note ---
Date of Service: July 22, 2021 Catheterization films reviewed with Dr Saavedra in dental laboratory technician apprentice control room. No obstructive CAD as culprit, has non ischemic cardiomyopathy. Family tells me pt has not been to doctor in 2 years. Question if he has been in AF and this is a tachycardia induced cardiomyopathy or other. Resume heparin gtt (low dose, no bolus) in 6 hours given radial cath site. Even though hematuria present earlier today, given AF, low LVEF, and h/o stroke , risk of thromboembolic event is high and would proceed with another trial of heparin. Updated family, daughter, Jasmyne, and patient's spouse in waiting room.
--- NOTE | 2021-07-22 16:25 | Post Anesthesia Assessment ---
Date of Service July 22, 2021 Post Sedation Assessment Vital Signs Temp Pulse Pulse Resp BP BP BP 07/22/21 16:20 109 H 16 109/92 07/22/21 14:37 120 H 20 133/95 07/22/21 11:33 98.4 F 102 H 17 115/80 07/22/21 07:11 98.4 F 111 H 18 122/93 07/22/21 05:37 139 H 122/94 07/22/21 03:08 97.7 F 113 H 18 123/88 07/21/21 22:45 97.9 F 115 H 18 127/89 07/21/21 22:00 102 H 18 127/95 07/21/21 21:45 107 H 19 126/81 07/21/21 21:30 100 H 21 120/98 07/21/21 21:16 88 14 111/89 07/21/21 21:15 88 18 07/21/21 21:00 84 23 120/98 07/21/21 20:45 90 20 128/98 07/21/21 20:31 87 18 125/80 07/21/21 20:30 87 15 125/90 07/21/21 20:16 89 20 110/90 07/21/21 20:15 91 H 18 07/21/21 20:05 91 H 111/80 07/21/21 20:03 88 21 07/21/21 19:54 97.9 F 87 93 H 18 118/85 07/21/21 19:45 97.9 F 85 22 118/85 Pulse Ox 07/22/21 16:20 94 07/22/21 14:37 96 07/22/21 11:33 95 07/22/21 07:11 95 07/22/21 05:37 07/22/21 03:08 07/21/21 22:45 99 07/21/21 22:00 98 07/21/21 21:45 97 07/21/21 21:30 98 07/21/21 21:16 94 07/21/21 21:15 97 07/21/21 21:00 96 07/21/21 20:45 93 07/21/21 20:31 96 07/21/21 20:30 98 07/21/21 20:16 91 07/21/21 20:15 98 07/21/21 20:05 07/21/21 20:03 93 07/21/21 19:54 97 07/21/21 19:45 98 Recovery Score Activity: Moves 4 extremities Respiration: Deep Breath/Cough Circulation: +/-20% PreAnes Value Consciousness: Fully Awake Oxygen Saturation: > 92% On Room Air Post Anesthesia Score: 10 Discharge Sedation Level of Care: Fast Track Phase II Post Sedation Plan On clinical assessment, the patient appears to have tolerated the sedation without complications. Patient is recovering as anticipated. Patient will continue to be monitored by nursing and may be discharged when sedation discharge criteria are met per below protocol. Upon Completions of procedure up to 15 minutes continue every 5 minute vital signs and the P.A.R. score; then discharge to a Phase I or Fast Track to Phase II per the following guidelines: * Discharge Patient to appropriate Phase II area if PAR is 8 or greater or return to pre- procedure baseline. The post - procedure orders will be as directed. * If PAR score is less than 8 or not return to pre-procedure baseline then patient will follow Phase I monitoring till PAR is reached for Phase II. The Phase I may be done in procedure room or may call to secure a Phase I area. * If naloxone or flumazenil are used for reversal, hold in Phase I for continued monitoring from when last reversal dose was given for a minimum of 60 minutes or longer pending the nurse and/or physician discretion of patient condition before discharge to Phase II. Please call the Sedation Physician to re-evaluate and complete post-note for discharge to Phase II area. Do NOT discharge from procedure sedation or Phase 1 until post- sedation evaluation note is complete by procedure /sedation MD Sedation Discharge Instructions to be given to the patient at discharge to home.
--- NOTE | 2021-07-22 16:35 | Cardiac Catheterization ---
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 Cardiac Status Clinical evaluation leading to the procedure CAD Presenation: Non STEMI Diagnostic Physicians Name: Heath Saavedra MD Closure Device Recommendations: PCI without planned CABG Cardiac Cath Procedure Full Procedure Date July 22, 2021 Pre-Procedure Diagnosis Pre-Procedure Diagnosis: Cardiomyopathy and Arrhythmia AUC Score AUC Score: 7 Post-Procedure Diagnosis Post-Procedure Diagnosis: Mild CAD and Normal Intracardiac Pressures Procedure(s) Performed Procedure(s) Performed: Coronary Angiography and Left Heart Cath Predator Control Trapper Heath Saavedra MD Family Centered Specialist(s) Educational Sign Language Interpreter Estimated Blood Loss Estimated Blood Loss: 5 Medication(s) Medication(s): Fentanyl, Lidocaine 1%, Nicardipine, Nitroglycerin and Versed Summary of Findings Indication: Sustained VT, severe LV dysfunction, mildly elevated troponin Access: 6 Fr right radial artery Catheters: [place], pigtail Findings: LM -calcified, large caliber, 20% ostial LAD -medium caliber, calcified, 20 to 30% mid segment disease at takeoff of D2. Distal vessel without significant disease and wraps around apex. Small D1, medium D2 without significant disease. Circumflex -large caliber, calcified, 20 to 30% proximal, mid segment ectatic. Distal 30% stenosis after takeoff of OM 2 prior to ectatic area. Medium OM 2, left PLB without disease. RCA -dominant, large caliber vessel, 30% mid segment disease, distal luminal regularities. PDA, distal PLB's without significant disease. LVEDP -9 Arterial Closure: TR band Summary: 1. Mild nonobstructive coronary artery disease -20% ostial left main 25% mid LAD Ectatic circumflex with 20% proximal stenosis, 30% distal 30% mid RCA 2. Normal intracardiac filling pressure Recommendations: Continued GDMT, ASCVD risk factor modification and SCD secondary prevention per Dr. Sim Hemodynamics Rest Ao:: 94/70/83 Final Ao: 84/59/69 LV: 82/9 Recommendations Recommendations: PCI without planned CABG Specimens Specimens: None Radiation Exposure (mGy) 372 Contrast (mls) 20 Anesthesia Moderate 6437-3701 Procedural Complication(s) None Disposition PCU I attest to the content of the Intraoperative Record and any orders documented therein. Any exceptions are noted below. [employer]G Card Cath Procedure Codes Cardiac Catheterization Procedure 1: Cardiovascular Cath Procedures: 22023 Coronaries and LHC (+/-LV) Moderate Sedation Procedure 1: Sedation/Anesthesia: 22869 Mod Sedation by the same physician;Init15 Min Child Age 5 & Up PG Care Time/CCT Total # of Minutes Spent Total Time Spent with Patient: Total time spent is greater than 50% in coordination of care (as documented) at patient's floor/unit and/or counseling patient:
[2021-07-22] MEDS: METOPROLOL TARTRATE 25 MG TAB PO SCH ×2 (17:29→20:21)
[2021-07-22] MEDS ORDERED: HEPARIN SODIUM/DEXTROSE 25,000 UNITS/500 ML BAG IV SCH (22:20)
[2021-07-22] MEDS ORDERED: Heparin IV Adult Wt-Based Low-Dose *NO* Bolus Protocol ONE (22:20)
[2021-07-23 02:09] LABS: Partial Thromboplastin Ratio 1.2; Partial Thromboplastin Time 33.2 Seconds (21.0-31.0)
[2021-07-23] MEDS ORDERED: HEPARIN SOD (PORCINE) 1000 UNIT/ML IV ONE (03:27)
[2021-07-23] MEDS ORDERED: HEPARIN IV BOLUS 3,000 UNITS in SYRINGE 0 ML IV ONE (03:45)
[2021-07-23 07:53] LABS: BUN Creatinine Ratio 17.1 (10-20); Calcium 8.7 mg/dl (8.5-10.1); Creatinine Clr Calc Pharmacy 68.4 ml/min; Est GFR (African American) 96.1 ml/min; Est GFR (Non-African American) 82.9 ml/min; Magnesium 1.8 mg/dl (1.7-2.4); Potassium 3.7 mmol/L (3.5-5.1)
[2021-07-23 08:22] LABS: Hematocrit (blood only) 41.9 % (42-52); Hemoglobin 13.8 g/dL (14.0-18.0); Mean Corpuscular Hemoglobin 31.2 pg (25-34); Mean Corpuscular Hgb Conc 32.9 g/dL (32-36); Mean Corpuscular Volume 94.6 fL (80-100); Mean Platelet Volume 10.5 fL (7.4-10.4); Platelet Count 222 K/uL (130-400); RDW Coefficient of Variation 13.8 % (11.5-14.5); RDW Standard Deviation 47.6 fL (36.4-46.3); Red Blood Count 4.43 M/uL (4.7-6.1); White Blood Count 7.07 K/uL (4.8-10.8)
[2021-07-23] MEDS: METOPROLOL TARTRATE 25 MG TAB PO SCH (08:35)
[2021-07-23] MEDS: CLOPIDOGREL BISULFATE 75 MG TAB PO SCH (08:36)
[2021-07-23] MEDS: lisinopril 10 MG TAB PO SCH (08:36)
[2021-07-23] MEDS ORDERED: POTASSIUM CHLORIDE 10 MEQ TABCR PO ONE (10:19)
--- NOTE | 2021-07-23 10:21 | Cardiology Progress Note ---
Date of Service July 23, 2021 Assessment & Plan (1) Syncope: (2) Wide-complex tachycardia: (3) Elevated troponin: (4) New onset atrial fibrillation: (5) Hypertension: (6) Hematuria: (7) Prolonged QT interval: (8) Nonischemic cardiomyopathy: Plan: Symptomatic wide-complex tachycardia, consistent with sustained ventricular tachycardia, with resultant witnessed syncopal episode requiring cardioversion in the field New onset nonischemic cardiomyopathy with NYHA Class II CHF, EF 25- 30%, right bundle branch block with QRS duration 162 ms (? tachycardia induced versus other, ? sarcoid) New onset atrial fibrillation/flutter with a rapid ventricular response, or unknown duration, [id number] Score of at least 6 points Prolonged QTc Transaminitis, improving Mildly abnormal TSH History of PSVT Hypertension Dyslipidemia History of CVA, 2017 RECOMMENDATIONS/PLAN: Supplement potassium orally Electrocardiogram today, reassessment of QT interval Consult Electrophysiology, RE: symptomatic (syncope) sustained wide complex tachycardia, prolonged QTc, nonischemic cardiomyopathy. Patient declines AICD. Titrate metoprolol tartrate, eventually switching to metoprolol succinate Patient received lisinopril yesterday and today; recommend eventually transitioning to Entresto Maintain electrolytes Change clopidogrel to aspirin 81 mg/day when heparin transitioned to Eliquis anticoagulation Continue high intensity statin therapy No driving. Admission and Anticipated Discharge Date Admission Date: July 21, 2021 Supervising Physician Co-Signing Physician Notes Supervising Physician Attestation: I have personally performed a history and physical examination on the patient. I agree with the physician promotional advertising assistant's findings and plan as documented with the following additions. Subjective: Patient feeling well at rest. Heparin gtt infusing with mild hematuria. Remains in atrial fibrillation with right bundle branch block on telemetry, ventricular rate 120 at rest in chair at time of my assessment and 160 bpm with walking to the bathroom. No additional wide complex tachycardia overnight. Exam: CV: irregular , tachycardic, no murmur. No edema R radial cath site without hematoma Data: EKG this am 10:12 am AF at 115 bpm, with RBBB, QRS 142 ms, QTc 495 ms (improved QRS duration and improved QTc) Assessment and Plan: Syncope, suspected sustained VT atrial fibrillation (unknown chronicity / acuity) No culprit coronary obstruction to explain LV systolic dysfuncution Question if tachycardia induced, or alternative such has sarcoidosis that can present with conduction system disease and regional wall motion abnormalities that can mimic CAD. However, he is 81 years old and has not had issues in the past with regards to sarcoidosis. -Will plan for EP consult. -for now start amiodarone for further rate control. -possible SPIKE CV in 24-48 hrs. DVT prophylaxis: UF heparin gtt Mack Sim, DO Subjective Patient seen and examined. Chart, medications, and telemetry reviewed. Patient anxious for discharge. + Hematuria. No chest pain, palpitations, new or unusual shortness of breath, orthopnea, PND, lower extremity peripheral edema, dizziness, near syncope, melena, or hematochezia. EKG on July 21, 2021 with atrial fibrillation with a rapid ventricular response (101 bpm) with premature ventricular or aberrantly conducted complexes, left axis deviation, right bundle branch block with QRS duration 162 ms, QTC 554 ms. July 22, 2021 TTE interpretation summary ([facility], Dr. Sim): Atrial fibrillation with rapid rate of 100 to 108 bpm was present on echocardiogram. Normal LV wall thickness. Moderate size inferior and inferior lateral wall motion abnormality with akinesis of the segments at the basal and mid levels. Otherwise, moderate global hypokinesis. Severely reduced LV systolic function. Ejection fraction 25-30%. Normal RV size and function. Mildly dilated left atrium. Moderately dilated right atrium. Mild aortic valve sclerosis without significant stenosis. Mild mitral regurgitation. Moderate tricuspid regurgitation. Mild pulmonary hypertension, estimated PASP 39 mmHg. July 22, 2021 Coronary Angiography ([facility], Dr. Saavedra) revealed mild nonobstructive coronary artery disease (20% ostial left main, 25% mid LAD, ectatic circumflex with 20% proximal stenosis and a 30% distal stenosis, 30% mid RCA, normal intracardiac filling pressure Continuous telemetry monitoring reveals atrial fibrillation with ranging from the 70s to the 150s. No significant bradycardia or pauses. No periods of sinus. No VT. Review of Systems Review of Systems: Complete review of system is otherwise as stated above, negative, noncontributory Physical Exam Physical Exam: General: A&Ox3. NAD. HENT: Normocephalic. Atraumatic. Eyes: PER. Conjunctiva pink, sclera clear. Neck: No carotid bruits. No JVD. No HJR. Heart: Irregularly irregular around 110 bpm. Soft systolic murmur at the LLSB and apex. PMI is displaced. Lungs: Clear to auscultation. Abdomen: +BS. Soft. Nontender. No masses or organomegaly. Extremities: Right radial access site looks good. No clubbing, cyanosis, or significant edema. Limited neurological examination is without focal deficits. Pulses: radial=2/4, posterior tibial=2/4. Results & Data ([facility]) Vital Signs (Past 12 Hours) Vital Signs Temp Pulse Resp BP Pulse Ox Pulse Ox 07/23/21 08:00 36.7 C 94 H 20 110/64 94 07/23/21 02:54 36.6 C 92 H 20 112/81 93 07/23/21 00:51 88 110/70 07/22/21 23:00 36.7 C 72 17 110/76 99 07/22/21 22:54 97 Laboratory Results Laboratory Results - last 24 hr 07/22/21 07/23/21 07/23/21 05:26 01:27 06:31 WBC 7.07 RBC 4.43 L Hgb 13.8 L Hct 41.9 L MCV 94.6 MCH 31.2 MCHC 32.9 RDW Std Deviation 47.6 H RDW Coeff of Gertrudis 13.8 Plt Count 222 MPV 10.5 H APTT 33.2 H PTT Ratio 1.2 Sodium Potassium Chloride Carbon Dioxide Anion Gap BUN Creatinine Est Cr Clr Drug Dosing Est GFR ( Amer) Est GFR (Non-Af Amer) BUN/Creatinine Ratio Glucose Calcium Magnesium 1.8 07/23/21 06:31 WBC RBC Hgb Hct MCV MCH MCHC RDW Std Deviation RDW Coeff of Gertrudis Plt Count MPV APTT PTT Ratio Sodium 137 Potassium 3.7 Chloride 104 Carbon Dioxide 25 Anion Gap 8 BUN 14 Creatinine 0.82 Est Cr Clr Drug Dosing 68.4 Est GFR ( Amer) 96.1 Est GFR (Non-Af Amer) 82.9 BUN/Creatinine Ratio 17.1 Glucose 90 Calcium 8.7 Magnesium 1.8
[2021-07-23] MEDS: METOPROLOL TARTRATE 50 MG TAB PO SCH ×3 (10:38→20:17)
[2021-07-23 11:54] LABS: Partial Thromboplastin Ratio 2.3
[2021-07-23] MEDS: AMIODARONE 200 MG TAB PO SCH ×2 (11:58→16:49)
[2021-07-23 12:02] LABS: Partial Thromboplastin Time 64.4 Seconds (21.0-31.0)
--- NOTE | 2021-07-23 15:01 | Cardiology Consultation ---
Date of Consultation July 23, 2021 Assessment & Plan (1) Syncope: concern for cardiac arrest with sustained VT; he should have ICD prior to hospital discharge; discussed the procedure with the pt he expressed an understanding and agreed to proceed. Given there is a chance in the future we will try rhythm management; furthermore I could also foresee in his future given the RBBB that he will have a high degree of RV pacing and I do not want him to apical RV pace so he should get a left bundle lead for this reason; plus he might need a AVN ablation ni the future. (2) Wide-complex tachycardia: Concnerning for VT resulting in syncope (3) Elevated troponin: (4) New onset atrial fibrillation: on heparin drip and metoprolol Discussed with Dr. Sim it is reasonable to try SPIKE guided DCCV but he will need anti-arrhythmic agents on board to hopefully maintian SR (5) Hypertension: (6) Hematuria: (7) Prolonged QT interval: (8) Nonischemic cardiomyopathy: I am assuming that the cardiomyopathy is due to tachycardia induced and the pt was probably in AF for some time and now that he has a low EF he is at risk and most likely having VT resulting in the syncope. Optimize cardiomyopathy medications as an out pt; try to maintain SR with a SPIKE guided DCCV to hopefully improve the cardiomopathy (9) RBBB: pt does have evidence of conduction disease and there is a high likely adler at some point in his lifetime he will need a pacemaker (10) Hematuria: Pt having hematuria on heparin drip so this was stopped; after the BiV ICD would try eliquis; but he will eventually need a cystoscopy-timing is difficult as he is about to have an device implant and I do not want it to get infected History of Present Illness Reason for Consultation: WCT and Cardiomyopathy Requesting Physician: Dr. Sim Attending Physician: Davion Javier MD History of Present Illness Pt was admitted to [facility] after witness syncopal event; EMS was called and found him to be in a WCT which he got cardioverted out to AF as per medical records. Pt has been having episodes of syncope/near syncope lately with a prodrome of flushing and weakness with a "pending domb" sensation He underwent a cardiac cath yesterday which revealed non-obstructive disease His echocardiogram revealed EF 20% with abnormal wall motion Past Medical and Surgical History: Left temporal occipital region, February 2017 Wide-complex tachycardia, ventricular ectopy, SVT noted when hospitalized in February 2017. Hypertension Dyslipidemia Social History: Remote history of tobacco abuse, quitting at the age of 27. No alcohol. No illegal drug use. [id number] medications include as needed Benadryl, Zyrtec, Tylenol, and ibuprofen Family History: Mother at the age of 92. Father at the age of 67 with colon cancer. Three brothers, one with atrial fibrillation, followed by Dr. Medel Allergies Allergy/AdvReac Type Severity Reaction Status Date / Time amoxicillin Allergy Unknown Hives Unverified 07/21/21 22:13 Home Medications Medication Instructions Recorded Confirmed Type atorvastatin 80 mg tablet 80 mg PO DAILY 04/16/20 07/21/21 History clopidogrel 75 mg tablet 75 mg PO DAILY #30 tab 04/16/20 07/21/21 Rx diphenhydramine HCl 25 mg tablet 50 mg PO HS PRN 07/21/21 07/21/21 History lisinopril 10 1 tab PO DAILY 07/21/21 07/21/21 History mg-hydrochlorothiazide 12.5 mg tablet metoprolol tartrate 25 mg tablet 25 mg PO BID 07/21/21 07/21/21 History Patient History Medical History Acute CVA (cerebrovascular accident) Hx of basal cell carcinoma "nose, back, chest" Hypertension No pertinent past medical history Osteoarthritis of shoulders, bilateral Stroke Surgical History No pertinent past surgical history Family History Father Colorectal cancer Social History Smoking Status: Former smoker Second Hand Exposure: No; Hx Alcohol Use: No Hx Substance Use: No Preferred Language: Uzbek Communication Ability: Effective Calcine Furnace Tender Required: No Beliefs That Will Affect Care: None Current Living Situation: Spouse Feels Safe at Home: Yes Assistive Devices: None Review of Systems Review of Systems: All systems reviewed & are unremarkable except as noted in HPI & below Physical Exam Physical Exam: aaox3, NAD NC/AT EOMI Supple No JVD irregular/irregular S1/S2, + systolic murmur CTA b/l no w/r/r soft nt/nd no LE edema b/l skin intact no focal deficits Results & Data ([facility]) Vital Signs (Past 12 Hours) Vital Signs Temp Pulse Resp BP Pulse Ox 07/23/21 12:00 36.8 C 66 18 121/60 96 07/23/21 10:35 36.6 C 128 H 16 116/84 94 07/23/21 08:00 36.7 C 94 H 20 110/64 94 Laboratory Results Abnormal Lab Results 07/23/21 07/23/21 07/23/21 01:27 06:31 06:31 WBC 7.07 RBC 4.43 L Hgb 13.8 L Hct 41.9 L MCV 94.6 MCH 31.2 MCHC 32.9 RDW Std Deviation 47.6 H RDW Coeff of Gertrudis 13.8 Plt Count 222 MPV 10.5 H APTT 33.2 H PTT Ratio 1.2 Sodium 137 Potassium 3.7 Chloride 104 Carbon Dioxide 25 Anion Gap 8 BUN 14 Creatinine 0.82 Est Cr Clr Drug Dosing 68.4 Est GFR ( Amer) 96.1 Est GFR (Non-Af Amer) 82.9 BUN/Creatinine Ratio 17.1 Glucose 90 Calcium 8.7 Magnesium 1.8 07/23/21 11:11 WBC RBC Hgb Hct MCV MCH MCHC RDW Std Deviation RDW Coeff of Gertrudis Plt Count MPV APTT 64.4 H* PTT Ratio 2.3 Sodium Potassium Chloride Carbon Dioxide Anion Gap BUN Creatinine Est Cr Clr Drug Dosing Est GFR ( Amer) Est GFR (Non-Af Amer) BUN/Creatinine Ratio Glucose Calcium Magnesium Diagnostic Findings ECGS: reviewed: Today: AF 113bpm RBBB; 07/21/2021 AF 101bpm RBBB EMS 12 lead ECG: WCT 260bpm suggestive of VT monomorphic Echocardiogram:EF 25% with inferior and infero lateral wall abnormality; mod TR Medications Administered Current Inpatient Medications Acetaminophen (Acetaminophen 325 Mg Tab) 325 mg PO Q6H PRN PRN Reason: Mild Pain Stop: 08/21/21 04:17 Amiodarone HCl (Amiodarone 200 Mg Tab) 200 mg PO TIDM XUAN Stop: 08/22/21 11:59 Last Admin: 07/23/21 11:58 Dose: 200 mg Documented by: Clopidogrel Bisulfate (Clopidogrel Bisulfate 75 Mg Tab) 75 mg PO [facility] Stop: 08/21/21 08:59 Last Admin: 07/23/21 08:36 Dose: 75 mg Documented by: Promethazine HCl 12.5 mg/ (Sodium Chloride) 50.5 mls @ 202 mls/hr IV Q6H PRN PRN Reason: Nausea And Vomiting Stop: 08/20/21 22:53 Heparin Sodium/Dextrose (Heparin Sodium/Dextrose) 25,000 units in 500 mls @ 0 mls/hr IV .Q0M [facility]; Protocol Stop: 08/21/21 22:19 Last Titration: 07/23/21 13:54 Dose: Infused Documented by: Lisinopril (Lisinopril 10 Mg Tab) 10 mg PO [facility] Stop: 08/21/21 08:59 Last Admin: 07/23/21 08:36 Dose: 10 mg Documented by: Metoprolol Tartrate (Metoprolol Tartrate 50 Mg Tab) 50 mg PO TID [facility] Stop: 08/22/21 10:29 Last Admin: 07/23/21 10:38 Dose: 50 mg Documented by: Nitroglycerin (Nitroglycerin Sl 0.4 Mg/Tab Tab) 0.4 mg SL UD PRN PRN Reason: Chest Pain Stop: 08/20/21 22:53 Tramadol HCl (Tramadol Hcl 50 Mg Tablet) 25 - 50 mg PO Q4H PRN PRN Reason: Pain Stop: 08/20/21 22:53
--- NOTE | 2021-07-23 15:31 | Hospitalist Progress Note ---
Date of Service July 23, 2021 Assessment & Plan (1) Syncope: (2) Wide-complex tachycardia: (3) New onset atrial fibrillation: (4) Nonischemic cardiomyopathy: (5) RBBB: (6) Elevated troponin: (7) Hematuria: (8) Prolonged QT interval: Plan: Syncope with cardiac arrest due to sustained VT prior to arrival requiring cardioversion in field - Seen by cardio and EP- recommended ICD but he declined, even life vest - He is not allowed to drive or operate heavy machinery New onset Afib- seen by cardio- plan for SPIKE guided cardioversion tomorrow per cardio. currently on lopressor. CHADS2 VASc score of 6 but unable to tolerate heparin drip due to recurrent hematuria. Will likely need DOAC if tolerates, if so change plavix to aspirin. Non ischemic cardiomyopathy, non ischemic- suspected tachycardia induced. Cardiac cath with non obstructive CAD. TTE with EF 25-30%. On GDMT with ACEI, BB- Cardio on board Gross hematuria- started again once heparin drip was resumed. Will hold heparin drip for now. H&H so far relatively stable. Prolonged QTc- monitor. Avoid further QT prolonging medications. RBBB- per EP, he might need pacemaker at some point Transaminitis- related to #1. improving. Elevated trop- likely related to cath. asymptomatic. Cardio on board DVT ppx-holding heparin due to hematuria Dispo- SPIKE CV tomorrow Admission and Anticipated Discharge Date Admission Date: July 21, 2021 Subjective Seen and examined at bedside. No more syncope. No lightheadedness, dizziness, chest pain, palpitations. States his hematuria cleared when off of heparin drip but started again once it was resumed. Had a sample of hematuria in the urinal at bedside. Physical Exam Physical Exam: General: Sitting in chair, not in distress, on room air HEENT: EOMI, CARLY, MMM Chest: Fair breath sounds bilaterally, no wheezes or crackles CVS: Irregular, normal heart sounds, no murmur Abdomen: Soft, non tender, not distended, normal bowel sounds Neuro: Awake, alert, oriented, conversing well, non focal Extremities: No cyanosis, clubbing or edema Results & Data Results & Data ([facility]) Vital Signs (Past 12 Hours) Vital Signs Temp Pulse Resp BP Pulse Ox 07/23/21 12:00 36.8 C 66 18 121/60 96 07/23/21 10:35 36.6 C 128 H 16 116/84 94 07/23/21 08:00 36.7 C 94 H 20 110/64 94 Laboratory Results Short CBC 07/23/21 Range/Units 06:31 WBC 7.07 (4.8-10.8) K/uL Hgb 13.8 L (14.0-18.0) g/dL Hct 41.9 L (42-52) % Plt Count 222 (130-400) K/uL BMP 07/23/21 06:31 Sodium 137 Potassium 3.7 Chloride 104 Carbon Dioxide 25 BUN 14 Creatinine 0.82 Glucose 90 Calcium 8.7 Medications Administered Current Inpatient Medications Acetaminophen (Acetaminophen 325 Mg Tab) 325 mg PO Q6H PRN PRN Reason: Mild Pain Stop: 08/21/21 04:17 Amiodarone HCl (Amiodarone 200 Mg Tab) 200 mg PO TIDM [facility] Stop: 08/22/21 11:59 Last Admin: 07/23/21 11:58 Dose: 200 mg Documented by: Clopidogrel Bisulfate (Clopidogrel Bisulfate 75 Mg Tab) 75 mg PO QAM [facility] Stop: 08/21/21 08:59 Last Admin: 07/23/21 08:36 Dose: 75 mg Documented by: Promethazine HCl 12.5 mg/ (Sodium Chloride) 50.5 mls @ 202 mls/hr IV Q6H PRN PRN Reason: Nausea And Vomiting Stop: 08/20/21 22:53 Heparin Sodium/Dextrose (Heparin Sodium/Dextrose) 25,000 units in 500 mls @ 0 mls/hr IV .Q0M [facility]; Protocol Stop: 08/21/21 22:19 Last Titration: 07/23/21 13:54 Dose: Infused Documented by: Lisinopril (Lisinopril 10 Mg Tab) 10 mg PO QAM [facility] Stop: 08/21/21 08:59 Last Admin: 07/23/21 08:36 Dose: 10 mg Documented by: Metoprolol Tartrate (Metoprolol Tartrate 50 Mg Tab) 50 mg PO TID [facility] Stop: 08/22/21 10:29 Last Admin: 07/23/21 10:38 Dose: 50 mg Documented by: Nitroglycerin (Nitroglycerin Sl 0.4 Mg/Tab Tab) 0.4 mg SL UD PRN PRN Reason: Chest Pain Stop: 08/20/21 22:53 Tramadol HCl (Tramadol Hcl 50 Mg Tablet) 25 - 50 mg PO Q4H PRN PRN Reason: Pain Stop: 08/20/21 22:53
--- NOTE | 2021-07-23 16:46 | Communication Note ---
Date of Service: July 23, [address] Rae of EP who saw the patient in consultation. After further discussion, pt agreeable to AICD tentatively on Wednesday, 07/25. Also pt has developed recurrent hematuria on low dose heparin infusion and this is therefore on hold. Unable to consider cardioversion if unable to be anticoagulated. Continue metoprolol, and amiodarone for rate control and VT suppression. Feel cardiac status would need to be optimized with the above measures before work up such as cystoscopy can be considered.
--- NOTE | 2021-07-24 05:22 | Communication Note ---
Date of Service: July 24, 2021 SPIKE cardioversion cancelled due to hematuria. Pt made NPO pending further workup / testing of hematuria .
[2021-07-24 07:53] LABS: Hematocrit (blood only) 42.5 % (42-52); Hemoglobin 14.1 g/dL (14.0-18.0); Mean Corpuscular Hemoglobin 31.3 pg (25-34); Mean Corpuscular Hgb Conc 33.2 g/dL (32-36); Mean Corpuscular Volume 94.2 fL (80-100); Mean Platelet Volume 10.3 fL (7.4-10.4); Platelet Count 214 K/uL (130-400); RDW Coefficient of Variation 13.8 % (11.5-14.5); RDW Standard Deviation 47.7 fL (36.4-46.3); Red Blood Count 4.51 M/uL (4.7-6.1); White Blood Count 7.24 K/uL (4.8-10.8)
[2021-07-24 08:10] LABS: BUN Creatinine Ratio 18.2 (10-20); Creatinine Clr Calc Pharmacy 63.7 ml/min; Est GFR (African American) 93.4 ml/min; Est GFR (Non-African American) 80.6 ml/min; Magnesium 1.8 mg/dl (1.7-2.4)
[2021-07-24] MEDS: METOPROLOL TARTRATE 50 MG TAB PO SCH (08:34)
[2021-07-24] MEDS: lisinopril 10 MG TAB PO SCH (08:34)
[2021-07-24] MEDS: CLOPIDOGREL BISULFATE 75 MG TAB PO SCH (08:34)
[2021-07-24] MEDS: AMIODARONE 200 MG TAB PO SCH ×3 (08:34→16:28)
--- NOTE | 2021-07-24 09:20 | Communication Note ---
Date of Service: July 24, 2021 Discussed case with Urology. Referral for consultation placed. Anticipate need for CT today. Keep NPO for now.
--- NOTE | 2021-07-24 09:35 | Cardiology Progress Note ---
Date of Service July 24, 2021 Assessment & Plan (1) Syncope: (2) Wide-complex tachycardia: (3) Elevated troponin: (4) New onset atrial fibrillation: (5) Hypertension: (6) Hematuria: (7) Prolonged QT interval: (8) Nonischemic cardiomyopathy: (9) RBBB: Plan: Admission with symptomatic wide-complex tachycardia, sustained ventricular tachycardia, resultant syncope, status post cardioversion in the field New onset nonischemic cardiomyopathy with NYHA Class II+ CHF, EF 25-30%, right bundle branch block with QRS duration 162 ms (suspect tachycardia induced) New onset atrial fibrillation/flutter with a rapid ventricular response, or unknown duration, [id number] Score of at least 6 points Prolonged QTc Transaminitis Mildly abnormal TSH Gross hematuria Hypertension Dyslipidemia History of CVA, 2017 RECOMMENDATIONS/PLAN: Titrate beta-ronak therapy for heart rate control, switching to metoprolol succinate, 100 mg twice a day. Decrease lisinopril to allow for titration of metoprolol, eventually transitioning to Entresto Consult Urology, RE: Gross hematuria Resume anticoagulation as soon as able Reconsider cardioversion when able to take anticoagulation Continue oral Amiodarone (initiated 07/23/2021) to prevent recurrent ventricular tachycardia BiV-ICD implantation, tentatively scheduled for 07/25/2021, though above issues may requiring postponing. Maintain electrolytes Change clopidogrel to aspirin 81 mg/day when prescribed anticoagulation (Eliquis) Continue high intensity statin therapy Admission and Anticipated Discharge Date Admission Date: July 21, 2021 Supervising Physician Co-Signing Physician Notes Supervising Physician Attestation: I have personally performed a history and physical examination on the patient. I agree with the physician assistant case manager's findings and plan as documented with the following additions. Subjective: Patient seen in follow-up. Ongoing atrial fibrillation observed on telemetry, after receiving his morning medications, ventricular rates down to 93 to 100 bpm at rest, but up to least 130 with minimal physical activity such as walking to the restroom. Asymptomatic from that standpoint. No recurrence of wide-complex tachycardia/ventricular tachycardia. Patient states that he has voided several times since heparin discontinued yesterday, and that his urine is clear at this point with no evidence of gross hematuria. Exam: Cardiovascular: Irregular rhythm, no murmurs, no edema Right radial cath site clean dry and intact, no ecchymosis Data: Hemoglobin stable. Assessment and Plan: Problem list as noted above Patient considered to have risk factors making him high risk for cardioembolic stroke in the setting of atrial fibrillation, including past history of stroke in 2017 (work-up negative for atrial fibrillation at the time). Systemic anticoagulation felt to be indicated, but he has had two separate trials of unfractionated heparin, most recently, yesterday, with low-dose heparin, PTT in the 60s at time of recurrent hematuria. Patient not a candidate for SPIKE cardioversion while we are still concerned with regards to hematuria has cardioversion would require uninterrupted anticoagulation for 30 days post. AICD tentatively scheduled for tomorrow, however with noted clinical stability, lack of recurrent ventricular tachycardia on metoprolol and amiodarone, this can be delayed if necessary with regards to risks if instrumentation necessary for procedures such as cystoscopy. Case discussed by telephone with Dr. Abarca of Urology, evaluation including urine microscopy and contrast-enhanced CT of the abdomen and pelvis to be performed with further recommendations pending urology consultation. DVT prophylaxis: Ambulatory. Anticoagulation on hold due to hematuria. Mack Sim, Subjective Patient seen and examined. Chart, medications, and telemetry reviewed. Heart rates remain elevated despite titration of metoprolol tartrate, now at 50 mg three times per day. Off heparin due to gross hematuria. Patient fully agreeable to BiV-ICD implantation, tentatively scheduled for 07/25/2021 though other issues may requiring postponement of device implantation. No chest pain, palpitations, shortness of breath, orthopnea, PND, lower extremity peripheral edema, dizziness, near syncope, melena, or hematochezia. Continuous telemetry monitoring reveals atrial fibrillation with a rapid ventricular response, currently 120 to 130 bpm. No significant bradycardia or pauses. No periods of sinus. No ventricular tachycardia Review of Systems Review of Systems: Complete review of system is otherwise as stated above, negative, noncontributory Physical Exam Physical Exam: General: A&Ox3. NAD. HENT: Normocephalic. Atraumatic. Eyes: PER. Conjunctiva pink, sclera clear. Neck: No carotid bruits. No JVD. No HJR. Heart: Irregularly irregular around 120 bpm. Soft systolic murmur at the LLSB and apex. PMI is displaced. Lungs: Clear to auscultation. Abdomen: +BS. Soft. Nontender. No masses or organomegaly. Extremities: Right radial access site looks good. No clubbing, cyanosis, or significant edema. Limited neurological examination is without focal deficits. Pulses: radial=2/4, posterior tibial=2/4. Results & Data ([facility]) Vital Signs (Past 12 Hours) Vital Signs Temp Pulse Pulse Resp BP Pulse Ox 07/24/21 08:00 91 H 07/24/21 07:56 36.9 C 106 H 16 114/63 95 07/24/21 03:35 36.6 C 104 H 18 126/86 96 07/23/21 23:45 91 H 07/23/21 23:16 36.6 C 70 18 104/68 97 Laboratory Results Laboratory Results - last 24 hr 07/23/21 07/24/21 07/24/21 11:11 06:55 06:55 WBC 7.24 RBC 4.51 L Hgb 14.1 Hct 42.5 MCV 94.2 MCH 31.3 MCHC 33.2 RDW Std Deviation 47.7 H RDW Coeff of Gertrudis 13.8 Plt Count 214 MPV 10.3 APTT 64.4 H* PTT Ratio 2.3 Sodium 138 Potassium 4.0 Chloride 105 Carbon Dioxide 24 Anion Gap 9 BUN 16 Creatinine 0.88 Est Cr Clr Drug Dosing 63.7 Est GFR ( Amer) 93.4 Est GFR (Non-Af Amer) 80.6 BUN/Creatinine Ratio 18.2 Glucose 81 Calcium 9.0 Magnesium 1.8 Diagnostic Findings July 22, 2021 TTE interpretation summary ([facility], Dr. Sim): Atrial fibrillation with rapid rate of 100 to 108 bpm was present on echocardiogram. Normal LV wall thickness. Moderate size inferior and inferior lateral wall motion abnormality with akinesis of the segments at the basal and mid levels. Otherwise, moderate global hypokinesis. Severely reduced LV systolic function. Ejection fraction 25-30%. Normal RV size and function. Mildly dilated left atrium. Moderately dilated right atrium. Mild aortic valve sclerosis without significant stenosis. Mild mitral regurgitation. Moderate tricuspid regurgitation. Mild pulmonary hypertension, estimated PASP 39 mmHg. July 22, 2021 Coronary Angiography ([facility], Dr. Saavedra) revealed mild nonobstructive coronary artery disease (20% ostial left main, 25% mid LAD, ectatic circumflex with 20% proximal stenosis and a 30% distal stenosis, 30% mid RCA, normal intracardiac filling pressure
--- NOTE | 2021-07-24 12:57 | Urology Consultation ---
Date of Consultation July 24, 2021 Assessment & Plan (1) Hematuria: We discussed his gross hematuria in detail. We discussed that although there are several possible benign causes, hematuria is never a normal finding. We discussed that worrisome possible causes would be bladder cancer or kidney cancer. Typically a work-up for hematuria is done as an outpatient, however since there is active discussion with cardiology regarding long-term anticoagulation possible defibrillator placement during this hospitalization, we discussed performing an expedited work-up with him here in the hospital. Typically the work-up consists of CT scan with delayed images, urine cytology and cystoscopy. He was amenable to proceeding with the work-up in an expedited fashion. To that end, a CT urogram was performed today, which I independently reviewed. There are nonobstructing stones in the right kidney up to 3 to 4 mm in diameter. There are no clear stones in the left kidney. There is no hydronephrosis and no apparent lesions in either kidney to suggest malignancy. Both kidneys are somewhat atrophic. His bladder wall is somewhat thick but the bladder is well decompressed. He has notably enlarged prostate, which I calculated to be approximately 75 cc. There was a stone within the lumen of the bladder, measuring approximately 10 mm in diameter. There is some air within the lumen of the bladder, consistent with recent cystoscopy. A bedside cystoscopy was performed which is documented separately, but demonstrated no tumors within the bladder and confirmed an enlarged prostate. The bladder stone was also visualized. Urine cytology will be sent. Based on this work-up, the most likely causes of his hematuria would be the bladder stone or the enlarged prostate. Cystitis/urinary tract infection is a possibility, although his history does not make me overly suspicious It would be reasonable to treat empirically with antibiotics given recent instrumentation and hematuria. At this point, we have ruled out bladder or kidney tumor. Although surgeries could be performed to remove the bladder stone and address his enlarged prostate, it would not eliminate his risk of having hematuria after any cardiac procedure. Finasteride could help shrink the prostate and lower the risk of hematuria, however would likely take a couple months to reach effect. I would recommend that he undergo what ever procedures are felt to be indicated by cardiology, and if he develops worsening hematuria we can manage at that time. Recommendations: -Hold off on any further urologic intervention for now -Empiric antibiotics for possible UTI (i.e. Bactrim) -Consider starting finasteride, 5 mg daily to help shrink the prostate and potentially help reduce risk of bleeding -Reasonable to proceed with whatever procedures are considered indicated by cardiology - he develops hematuria, the urine is light pink it is reasonable to continue to monitor. If he develops clots or urinary retention, would recommend placement of a three-way large bore (24 [place]) catheter to allow for hand irrigation to remove clots and continuous bladder irrigation. -Urology will follow along History of Present Illness Reason for Consultation: Gross hematuria Attending Physician: Davion Javier MD History of Present Illness This is an 81-year-old male with no prior urologic history who presented to the hospital on 07/21/2021 after a syncopal event and concern for cardiac arrest with sustained VT. He was cardioverted/defibrillated on the way to the emergency department, and on the admission was noted to be in atrial fibrillation with elevated troponin and nonischemic cardiomyopathy. He had a cardiac catheterization on 07/22/2021. While admitted, he was started on a heparin drip, but this was stopped because he noted some blood in the urine. He was later restarted on the heparin drip, however almost immediately had recurrence of hematuria. Per report, the blood has been pink-tinged without any large clots. Urology was consulted regarding the hematuria. He reports this is the first time he has ever seen blood in the urine. He has never seen a urologist in the past. He has no history of surgery on the urinary tract. He has no history of voiding issues or prior urinary tract infections. He denies any medications for the prostate, specifically he denies tamsulosin and finasteride. He denies any personal or family history of renal, bladder or prostate malignancy. He has about a [id number] smoking history and has no significant exposure to chemical dyes. He denies any recent instrumentation. He feels like he empties his bladder well, and PVR was measured to be approximately 50 mL. Allergies Allergy/AdvReac Type Severity Reaction Status Date / Time amoxicillin Allergy Unknown Hives Unverified 07/21/21 22:13 Home Medications Medication Instructions Recorded Confirmed Type atorvastatin 80 mg tablet 80 mg PO DAILY 04/16/20 07/21/21 History clopidogrel 75 mg tablet 75 mg PO DAILY #30 tab 04/16/20 07/21/21 Rx diphenhydramine HCl 25 mg tablet 50 mg PO HS PRN 07/21/21 07/21/21 History lisinopril 10 1 tab PO DAILY 07/21/21 07/21/21 History mg-hydrochlorothiazide 12.5 mg tablet metoprolol tartrate 25 mg tablet 25 mg PO BID 07/21/21 07/21/21 History Patient History Medical History Acute CVA (cerebrovascular accident) Hx of basal cell carcinoma "nose, back, chest" Hypertension No pertinent past medical history Osteoarthritis of shoulders, bilateral Stroke Surgical History No pertinent past surgical history Family History Father Colorectal cancer Social History Smoking Status: Former smoker Second Hand Exposure: No; Hx Alcohol Use: No Hx Substance Use: No Preferred Language: Lao Communication Ability: Effective Staff Psychiatrist Required: No Beliefs That Will Affect Care: None Current Living Situation: Spouse Feels Safe at Home: Yes Assistive Devices: None Review of Systems Review of Systems: 14 point review of systems negative except for otherwise indicated. Physical Exam Constitutional: well developed and well nourished; no acute distress Eyes: + anicteric sclerae; pupils not irregular Respiratory: normal respiratory effort; no respiratory distress and does not use accessory muscles Soft wheezing. Cardiovascular: Irregularly irregular, well-perfused Gastrointestinal (Abdomen): Inspection/Auscultation: abdomen normal to inspection; abdomen not distended Musculoskeletal: Extremities: extremities normal to inspection Skin: normal turgor; no rashes and no lesions Neurologic: moves all extremities and awake Psychiatric: Orientation: alert and oriented x 3 Genitourinary: Circumcised penis with orthotopic meatus, no discharge or drainage. Bilateral testicles within the scrotal sac with no masses appreciated. Results & Data ([facility]) Vital Signs (Past 12 Hours) Vital Signs Temp Pulse Pulse Resp BP Pulse Ox 07/24/21 11:00 36.9 C 98 H 18 128/66 96 07/24/21 08:00 91 H 07/24/21 07:56 36.9 C 106 H 16 114/63 95 07/24/21 03:35 36.6 C 104 H 18 126/86 96 PG Care Time/CCT Total # of Minutes Spent Total Time Spent with Patient: Total time spent is greater than 50% in coordination of care (as documented) at patient's floor/unit and/or counseling patient: Coding Level of Care Code 96536 Initial Inpt Care Lvl 2 Diagnoses Hematuria R31.9
[2021-07-24] MEDS ORDERED: OPTIRAY 320 100ml IV ONE (13:11)
--- NOTE | 2021-07-24 13:25 | Hospitalist Progress Note ---
Date of Service July 24, 2021 Assessment & Plan (1) Syncope: (2) Wide-complex tachycardia: (3) New onset atrial fibrillation: (4) Nonischemic cardiomyopathy: (5) RBBB: (6) Elevated troponin: (7) Hematuria: (8) Prolonged QT interval: Plan: Syncope with cardiac arrest due to sustained VT prior to arrival requiring cardioversion in field - Seen by cardio and EP- Patient now agreeable to ICD and tentatively planned for tomorrow, npo after midnight - Started on amiodarone 07/23, QTc stable, monitor on tele - Cardio and EP following Newly diagnosed Afib with RVR - Cardio following- CHADS2 VASc score of 6 but unable to tolerate heparin drip due to recurrent hematuria. Initial plan was for cardioversion today but cancelled as he could not tolerate anticoagulation due to recurrent hematuria. Consider at some point once able to tolerate anticoagulation per cardiology. He will eventually need DOAC and if so, change plavix to aspirin - Currently on lopressor- being titrated for rate control; also started on amiodarone 07/23. Non ischemic cardiomyopathy- suspected tachycardia induced. Cardiac cath with non obstructive CAD. TTE with EF 25-30%. On GDMT with ACEI, BB- Cardio on board. Will need to switch ACEI to entresto at some point Recurrent gross hematuria- while on heparin drip, resolved with holding heparin drip. H&H stable. Uro on board- further work up in progress Prolonged QTc- monitor. Avoid further QT prolonging medications. Transaminitis- related to #1. improving. DVT ppx-holding heparin due to recurrent hematuria; SCDs. Dispo- Pending ICD placement, cardioversion and hematuria work up Admission and Anticipated Discharge Date Admission Date: July 21, 2021 Subjective No new issues. He is now agreeable to ICD placement. His hematuria has resolved with holding heparin drip. He is npo awaiting the procedures today. Denies any new issues. No chest pain, palpitations, dizziness, shortness of breath. Physical Exam Physical Exam: General: Sitting in bed, not in distress, on room air HEENT: EOMI, CARLY, MMM Chest: Fair breath sounds bilaterally, no wheezes or crackles CVS: Irregular, normal heart sounds, no murmur Abdomen: Soft, non tender, not distended, normal bowel sounds Neuro: Awake, alert, oriented, conversing well, non focal Extremities: No cyanosis, clubbing or edema Results & Data Results & Data ([facility]) Vital Signs (Past 12 Hours) Vital Signs Temp Pulse Pulse Resp BP Pulse Ox 07/24/21 11:00 36.9 C 98 H 18 128/66 96 07/24/21 08:00 91 H 07/24/21 07:56 36.9 C 106 H 16 114/63 95 07/24/21 03:35 36.6 C 104 H 18 126/86 96 Laboratory Results Short CBC 07/24/21 Range/Units 06:55 WBC 7.24 (4.8-10.8) K/uL Hgb 14.1 (14.0-18.0) g/dL Hct 42.5 (42-52) % Plt Count 214 (130-400) K/uL BMP 07/24/21 06:55 Sodium 138 Potassium 4.0 Chloride 105 Carbon Dioxide 24 BUN 16 Creatinine 0.88 Glucose 81 Calcium 9.0 Medications Administered Current Inpatient Medications Acetaminophen (Acetaminophen 325 Mg Tab) 325 mg PO Q6H PRN PRN Reason: Mild Pain Stop: 08/21/21 04:17 Amiodarone HCl (Amiodarone 200 Mg Tab) 200 mg PO TIDM [facility] Stop: 08/22/21 11:59 Last Admin: 07/24/21 08:34 Dose: 200 mg Documented by: Clopidogrel Bisulfate (Clopidogrel Bisulfate 75 Mg Tab) 75 mg PO QAM [facility] Stop: 08/21/21 08:59 Last Admin: 07/24/21 08:34 Dose: 75 mg Documented by: Promethazine HCl 12.5 mg/ (Sodium Chloride) 50.5 mls @ 202 mls/hr IV Q6H PRN PRN Reason: Nausea And Vomiting Stop: 08/20/21 22:53 Heparin Sodium/Dextrose (Heparin Sodium/Dextrose) 25,000 units in 500 mls @ 0 mls/hr IV .Q0M [facility]; Protocol Stop: 08/21/21 22:19 Last Titration: 07/23/21 13:54 Dose: Infused Documented by: Lisinopril (Lisinopril 5 Mg Tab) 5 mg PO QAM [facility] Stop: 08/24/21 08:59 Metoprolol Succinate (Metoprolol Succ 50mg Ext Rel Tab) 100 mg PO BID [facility] Stop: 08/23/21 20:59 Metoprolol Tartrate (Metoprolol Tartrate 50 Mg Tab) 50 mg PO ONE ONE Stop: 07/24/21 14:01 Nitroglycerin (Nitroglycerin Sl 0.4 Mg/Tab Tab) 0.4 mg SL UD PRN PRN Reason: Chest Pain Stop: 08/20/21 22:53 Tramadol HCl (Tramadol Hcl 50 Mg Tablet) 25 - 50 mg PO Q4H PRN PRN Reason: Pain Stop: 08/20/21 22:53
--- NOTE | 2021-07-24 13:52 | CT Scan Report ---
CT UROGRAM CLINICAL HISTORY: Gross hematuria. COMPARISON STUDY: No priors. TECHNIQUE: Before and following the IV administration of 95 cc of Optiray 320, CT urogram of the abd omen and pelvis is performed from the lung bases to the proximal femora. Images are reviewed in the a xial, sagittal, and coronal planes. IV contrast was administered without complication. A dose loweri ng technique was utilized adhering to the principles of ALARA. CT DOSE: 1376.08 mGycm FINDINGS: Lung bases: The heart is enlarged and without pericardial effusion. The coronary arteries are densely calcified. There is trace right pleural effusion. The lung bases are otherwise clear noting bibasila r scarring/atelectasis. Liver: The contrast-enhanced liver is normal in size, contour, and attenuation. There is no intrahepa tic biliary ductal dilatation. The hepatic veins and portal veins are patent. Gallbladder: Unremarkable. Spleen: Normal in size and attenuation. Pancreas: Unremarkable. Adrenal glands: Unremarkable. Kidneys and ureters: The contrast enhanced kidneys demonstrate mild cortical atrophy and are without hydronephrosis. Small nonobstructing right renal calculi measure up to 4 mm. No left renal calculi ar e identified on the unenhanced series. No ureteral stone is seen. The kidneys enhance and excrete sym metrically. A 2.1 cm cyst arises from the lower pole of left kidney. There are renal sinus cysts on t he left. Additional subcentimeter cortical hypodensities also likely represent cysts but are too smal l for definitive characterization. No enhancing renal cortical mass lesion is identified. There is no evidence of urothelial lesion within the renal pelvis bilaterally or along the course of either uret er. There is suboptimal opacification of the mid left and distal right ureters. Abdominal vasculature: The abdominal aorta is normal in course and caliber noting advanced atheroscle rotic calcification. Bowel: There is advanced colonic diverticulosis without CT evidence of acute diverticulitis. No bowel obstruction is seen. Mild fecal retention is noted throughout the colon. The appendix is well-visua lized and normal. Peritoneum: There is no intraperitoneal free air or abdominal ascites. A 2.0 cm peripherally calcifie d structure in the right lower quadrant mesentery is of doubtful significance. There is a fat-contain ing umbilical hernia. Lymphadenopathy: None. Pelvic viscera: The prostate gland is enlarged and heterogeneous, measuring 5.9 cm transversely. Ther e is median lobe hypertrophy. The bladder is decompressed. The wall appears thickened and hyperemic a nd there is pericystic inflammation. Foci of gas are noted in the bladder lumen. A 12 mm bladder calc ulus is noted. Small bladder diverticula are noted indicating chronic outlet obstruction. There is a fat-containing left inguinal hernia. Skeletal structures: The skeletal structures are osteopenic. Lumbosacral spondylosis is observed, gre atest at L1-L2. No lytic or blastic lesions are seen. IMPRESSION: 1. The bladder wall is thickened and hyperemic with surrounding inflammation. A bladder calculus is n oted and there is intraluminal gas. Correlate clinically and with urinalysis for evidence of cystitis . 2. The prostate gland is markedly enlarged and heterogeneous with evidence of chronic bladder outlet obstruction. Correlate with serum PSA levels. 3. There are small nonobstructing right renal calculi. 4. There is no evidence of enhancing cortical mass or urothelial lesion. 5. Cardiomegaly and trace right pleural effusion. 6. Advanced colonic diverticulosis without CT evidence of acute diverticulitis. 7. Additional findings as above. ACT 112: Negative or not required by law. Electronically signed by: John Leonardo M.D. 07/24/2021 1:51 PM
[2021-07-24] MEDS ORDERED: METOPROLOL TARTRATE 50 MG TAB PO ONE (14:00)
--- NOTE | 2021-07-24 14:00 | Procedure Note ---
Procedure Note Date of Service July 24, 2021 Note Bedside cystoscopy procedure note The patient was identified and informed consent was obtained. He was placed in the supine position on his hospital bed. His genitals were then prepped and draped in the sterile fashion and a timeout was performed. A well-lubricated flexible cystoscope was inserted per urethra and panendoscopy was performed. The pendulous urethra was normal with no strictures or mucosal abnormalities. His prostate was notably enlarged with visibly occlusive bilobar hyperplasia. There was a prominent intravesical portion of the prostate as well. The bladder was moderately/severely trabeculated with cellules scattered throughout the bladder wall. No tumors were appreciated. There was a single stone in the dependent portion of the bladder, estimated to be about 10 mm in diameter. The cystoscope was then removed and the patient was allowed to void. He tolerated the procedure well with no acute adverse events. Coding Additional Codes Billing Codes - 30035 Cystoscopy: 39774 Cystoscopy ([id number]) Urology Billing Codes Billing Codes 54849 Cystoscopy
[2021-07-24] MEDS: SULFAMETHOXAZOLE/TRIMETHOPRIM DS 800/160MG TAB PO SCH (15:11)
[2021-07-24] MEDS ORDERED: ZOLPIDEM TARTRATE 5 MG TAB PO STA (20:09)
[2021-07-24] MEDS: METOPROLOL SUCC 50MG EXT REL TAB PO SCH (20:44)
[2021-07-25 06:19] LABS: BUN Creatinine Ratio 22.7 (10-20); Creatinine Clr Calc Pharmacy 74.7 ml/min; Est GFR (African American) 99.7 ml/min; Magnesium 1.9 mg/dl (1.7-2.4); Potassium 4.1 mmol/L (3.5-5.1)
[2021-07-25] MEDS ORDERED: LIDOCAINE 1% LOCAL 20 ML VIAL ONE (07:05)
[2021-07-25] MEDS ORDERED: BUPIVACAINE 0.25% 30 ML VIAL ONE (07:05)
[2021-07-25] MEDS ORDERED: VANCOMYCIN HCL 1000MG/20ML VIAL ONE (07:05)
[2021-07-25] MEDS ORDERED: WATER, STERILE FOR INJ 10 ML VIAL ONE (07:05)
[2021-07-25] MEDS ORDERED: MIDAZOLAM HCL 5 MG/ML 1 ML VIAL ONE (07:13)
[2021-07-25] MEDS ORDERED: fentaNYL citrate 100 MCG/2 ML VIAL ONE (07:13)
[2021-07-25] MEDS ORDERED: ceFAZolin 330 MG/ML 1 GM VIAL ONE (07:13)
--- NOTE | 2021-07-25 07:53 | History & Physical Bridge Note ---
Date of Service July 25, 2021 History & Physical Bridge Note I have examined the patient, reviewed the History & Physical and in the interval since the performance of the History & Physical I have noted the following changes of clinical significance: pt with cardiac arrest; and probably will need RV pacing he is for a BiV ICD; re-discussed the procedure and potential risks; consents signed
--- NOTE | 2021-07-25 07:54 | Pre Anesthesia Assessment ---
Date of Service July 25, 2021 Pre Sedation Assessment Vital Signs Temp Pulse Pulse Resp BP Pulse Ox 07/25/21 07:06 37.1 C 105 H 18 132/88 96 07/25/21 03:12 36.7 C 85 18 105/62 94 07/24/21 23:16 36.6 C 91 H 18 103/73 93 07/24/21 23:04 82 07/24/21 19:33 36.9 C 92 H 18 124/88 96 07/24/21 15:25 115 H 07/24/21 15:00 36.8 C 87 18 134/69 100 07/24/21 11:00 36.9 C 98 H 18 128/66 96 07/24/21 08:00 91 H 07/24/21 07:56 36.9 C 106 H 16 114/63 95 Cardiovascular RRR, no murmur, no edema + irregularly irregular Respiratory normal respiratory effort, lungs clear to auscultation Pre-Sedation Airway Assessment Smoking Status: Former smoker Hx Sleep Apnea: No Hx Difficult Intubation: No Short, Thick Neck: Yes Thyromental Distance: > or= 3.5 Finger Breadths Oral Cavity: + WNL Mallampati Class: I ASA: ASA3 NPO Status Date of Last Intake of Fluids: 07/22/21 Time of Last Intake of Fluids: 11:30 Date of Last Intake of Solid Food: 07/22/21 Time of Last Intake of Solid Foods: 11:30 Procedure Planning Contraindications for Sedation: none Current Medications Reviewed: Yes Notes The planned sedation has been discussed with the patient. Informed Consent was obtained. I have identified the patient, determined the appropriateness of sedation and have assessed the patient immediately prior to the procedure. All medicine(s) and interventions are by my order.
[2021-07-25] MEDS: SULFAMETHOXAZOLE/TRIMETHOPRIM DS 800/160MG TAB PO SCH ×2 (09:40→20:14)
--- NOTE | 2021-07-25 09:52 | Post Anesthesia Assessment ---
Date of Service July 25, 2021 Post Sedation Assessment Vital Signs Temp Pulse Pulse Resp BP Pulse Ox 07/25/21 07:06 37.1 C 105 H 18 132/88 96 07/25/21 03:12 36.7 C 85 18 105/62 94 07/24/21 23:16 36.6 C 91 H 18 103/73 93 07/24/21 23:04 82 07/24/21 19:33 36.9 C 92 H 18 124/88 96 07/24/21 15:25 115 H 07/24/21 15:00 36.8 C 87 18 134/69 100 07/24/21 11:00 36.9 C 98 H 18 128/66 96 Recovery Score Activity: Moves 4 extremities Respiration: Deep Breath/Cough Circulation: +/-20% PreAnes Value Consciousness: Fully Awake Oxygen Saturation: > 92% On Room Air Post Anesthesia Score: 10 Discharge Sedation Level of Care: Fast Track Phase II Post Sedation Plan On clinical assessment, the patient appears to have tolerated the sedation without complications. Patient is recovering as anticipated. Patient will continue to be monitored by nursing and may be discharged when sedation discharge criteria are met per below protocol. Upon Completions of procedure up to 15 minutes continue every 5 minute vital signs and the P.A.R. score; then discharge to a Phase I or Fast Track to Phase II per the following guidelines: * Discharge Patient to appropriate Phase II area if PAR is 8 or greater or return to pre- procedure baseline. The post - procedure orders will be as directed. * If PAR score is less than 8 or not return to pre-procedure baseline then patient will follow Phase I monitoring till PAR is reached for Phase II. The Phase I may be done in procedure room or may call to secure a Phase I area. * If naloxone or flumazenil are used for reversal, hold in Phase I for continued monitoring from when last reversal dose was given for a minimum of 60 minutes or longer pending the nurse and/or physician discretion of patient condition before discharge to Phase II. Please call the Sedation Physician to re-evaluate and complete post-note for discharge to Phase II area. Do NOT discharge from procedure sedation or Phase 1 until post- sedation evaluation note is complete by procedure /sedation MD Sedation Discharge Instructions to be given to the patient at discharge to home.
--- NOTE | 2021-07-25 09:55 | Operative Report ---
Post Operative Report Pre & Post Diagnosis Cardiac arrest, AF RVR, VT Operation Date: 07/22/21 14:30 <No data on this case meets the specified criteria> Operation Date: 07/24/21 07:30 <No data on this case meets the specified criteria> Operation Date: 07/25/21 08:00 <No data on this case meets the specified criteria> I identified the patient and participated in the time-out.: No Procedure Operation Date: 07/22/21 14:30 Actual Procedures s Cineradiography w/Routine Exam - Silver Saavedra MD p Cath, Left with Cors and Vent - Silver Saavedar MD Operation Date: 07/24/21 07:30 <No data on this case meets the specified criteria> Operation Date: 07/25/21 08:00 Actual Procedures p ICD Insertion Single or Dual - Randi Rae DO s Bundle of his Recording - Randi Rae DO Surgeon Randi Rae DO Stock Letterer none Estimated Blood Loss 25 Findings Consistent with Post-Op Diagnosis Specimens none Description of Procedure see official report I attest to the content of the Intraoperative Record and any orders documented therein. Any exceptions are noted below.
--- NOTE | 2021-07-25 09:58 | Communication Note ---
Date of Service: July 25, 2021 Case Management contacted via telephone (Extension [phone]) regarding cost of Eliquis (5 mg twice a day) anticoagulation. They will contact me via [employer] Text with more information.
[2021-07-25] MEDS: AMIODARONE 200 MG TAB PO SCH ×3 (10:37→20:14)
[2021-07-25] MEDS: CLOPIDOGREL BISULFATE 75 MG TAB PO SCH (10:37)
[2021-07-25] MEDS: lisinopril 5 MG TAB PO SCH (10:37)
[2021-07-25] MEDS: METOPROLOL SUCC 50MG EXT REL TAB PO SCH ×2 (10:37→20:14)
--- NOTE | 2021-07-25 10:52 | Cardiology Progress Note ---
Date of Service July 25, 2021 Assessment & Plan (1) Syncope: (2) Wide-complex tachycardia: (3) Elevated troponin: (4) New onset atrial fibrillation: (5) Hypertension: (6) Hematuria: (7) Prolonged QT interval: (8) Nonischemic cardiomyopathy: (9) RBBB: Plan: Admission following documented symptomatic wide-complex tachycardia, sustained ventricular tachycardia with resultant syncope, status post cardioversion in the field Atrial fibrillation/flutter with a rapid ventricular response or unknown duration noted on admission; [id number] Score of at least 6 points July 22, 2021 Coronary Angiography ([facility], Dr. Saavedra) with mild nonobstructive CAD (20% ostial LM, 25% mid LAD, ectatic LCX with 20% proximal stenosis and a 30% distal stenosis, 30% mid RCA), normal intracardiac filling pressure. New onset nonischemic cardiomyopathy with NYHA Class II+ CHF, EF 25-30%, right bundle branch block with QRS duration 162 ms (suspect tachycardia induced) Status post biventricular pacemaker defibrillator implantation on 07/25/[address] Rae. Intermittent gross hematuria while on heparin; evaluation by Urology 07/24/2021 Prolonged QTc Transaminitis Mildly abnormal TSH Hypertension Dyslipidemia History of CVA, 2017 RECOMMENDATIONS/PLAN: Continue continuous telemetry monitoring Chest x-ray in the AM of 07/25/2021 Device interrogation in the AM of 07/26/2021 with a Ar[employer] Flatwork Finisher Hand. Resume anticoagulation in the afternoon of 07/26/2021; Eliquis 5 mg twice a day. Patient's cost for Eliquis is $527. Case Management will provide a free 30-day coupon card. Will explore options as an outpatient, transitioning to Coumadin if the use of a DOAC remains cost prohibitive. No Aspirin or Clopidogrel (Plavix) on discharge, attempting to reduce the risk of bleeding (hematuria) given the need for anticoagulation. Metoprolol tartrate 25 mg twice a day changed to Metoprolol succinate (100 mg twice a day) this admission. Amiodarone added this admission. Discharge dosing for amiodarone is to be 200 mg twice a day. Lisinopril decreased to 5 mg/day this admission; as an outpatient, will explore transitioning to Entresto HCTZ discontinued Decrease atorvastatin to 40 mg/day noting the abnormal LFT's on presentation as well as the addition of amiodarone this admission. Future considerations to include referral for cardioversion once we are sure he can tolerate uninterrupted use of therapeutic anticoagulation. I suspect it would be best to wait for at least three weeks of therapeutic anticoagulation prior to cardioversion. Patient notably requires at least four weeks of anticoagulation post cardioversion. Cardiology follow-up with Vandana Damico in 1-2 weeks; office made aware, will contact patient to schedule with Dr. Sim or Christian Garcia if Dr. Sim is not available. Admission and Anticipated Discharge Date Admission Date: July 21, 2021 Subjective Urology evaluation/documentation reviewed, and very much appreciated. Status post biventricular pacemaker defibrillator implantation earlier this morning (07/25/2021) by Dr. Rae Feeling OK. No reported chest pain, palpitations, or shortness of breath. No edema. Telemetry monitoring prior to device implantation revealed atrial fibrillation ranging from the 80's to about 110 bpm EKG dated and timed 25-JUL-2021 @ 09:47:45 revealed atrial fibrillation with a ventricular rate of 104 bpm with frequent ventricular-paced complexes, left axis deviation, right bundle branch block, T wave abnormality, QTc 389 ms. Review of Systems Review of Systems: Complete review of system is otherwise as stated above, negative, noncontributory Physical Exam Physical Exam: General: A&Ox3. NAD. HENT: Normocephalic. Atraumatic. Eyes: PER. Conjunctiva pink, sclera clear. Neck: No JVD. Chest: Left subclavian pacemaker pocket/dressing. Heart: Irregularly irregular around 100 bpm. Extremities: No lower extremity edema. Limited neurological examination is without focal deficits. Results & Data ([facility]) Vital Signs (Past 12 Hours) Vital Signs Temp Pulse Pulse Resp BP BP Pulse Ox 07/25/21 10:42 108 H 16 111/71 93 07/25/21 10:27 37.0 C 93 H 16 119/87 94 07/25/21 10:05 107 H 18 107/86 98 07/25/21 09:50 100 H 18 114/85 95 07/25/21 07:30 101 H 07/25/21 07:06 37.1 C 105 H 18 132/88 96 07/25/21 03:12 36.7 C 85 18 105/62 94 07/24/21 23:16 36.6 C 91 H 18 103/73 93 07/24/21 23:04 82 Laboratory Results Laboratory Results - last 24 hr 07/24/21 07/25/21 16:44 05:30 Sodium 137 Potassium 4.1 Chloride 105 Carbon Dioxide 22 Anion Gap 10 BUN 17 Creatinine 0.75 Est Cr Clr Drug Dosing 74.7 Est GFR ( Amer) 99.7 Est GFR (Non-Af Amer) 86.0 BUN/Creatinine Ratio 22.7 H Glucose 87 POC Glucose 76 Calcium 9.0 Magnesium 1.9 Diagnostic Findings July 22, 2021 TTE interpretation summary ([facility], Dr. Sim): Atrial fibrillation with rapid rate of 100 to 108 bpm was present on echocardiogram. Normal LV wall thickness. Moderate size inferior and inferior lateral wall motion abnormality with akinesis of the segments at the basal and mid levels. Otherwise, moderate global hypokinesis. Severely reduced LV systolic function. Ejection fraction 25-30%. Normal RV size and function. Mildly dilated left atrium. Moderately dilated right atrium. Mild aortic valve sclerosis without significant stenosis. Mild mitral regurgitation. Moderate tricuspid regurgitation. Mild pulmonary hypertension, estimated PASP 39 mmHg.
--- NOTE | 2021-07-25 11:23 | Urology Progress Note ---
Date of Service July 25, 2021 Assessment & Plan (1) Hematuria: Plan: 81yo M admitted after syncopal event and concern for cardiac arrest with sustained VT. Urology was consulted regarding gross hematuria in the setting of anticoagulation. - Pt underwent expedited work-up for hematuria given his need for likely long- term anticoagulation and defibrillator placement during this hospitalization. - CT abdomen/pelvis imaging obtained yesterday and a bedside cystoscopy was performed by Dr. Abarca. - Work-up revealed the most likely causes of his hematuria would be the bladder stone and/or the enlarged prostate.Cystitis/urinary tract infection also a possibility, though not overly suspicious as the cause. - Pt afebrile, hemodynamically stable. - Labs reviewed - Creatinine normal. - Voiding spontaneously without issue. Plan- - Continue empiric antibiotics for possible UTI. - Consider starting finasteride, 5 mg daily to help shrink the prostate and potentially help reduce risk of bleeding. - If he develops hematuria and the urine is light pink, it is reasonable to continue to monitor. If he develops clots or urinary retention, would recommend placement of a three-way large bore (24 [place]) catheter to allow for irrigation if needed. - Continue care per primary team and cardiology. - Urology will manage hematuria as needed. - Will follow peripherally, please contact us with any questions, concerns, or changes in patient status. Admission and Anticipated Discharge Date Admission Date: July 21, 2021 Subjective Pt examined at bedside this AM. Awake, resting in bed on arrival. Appears comfortable, no acute distress. He is s/p pacemaker defibrillator implantation earlier this morning. Reports he is voiding without issue and feels he is emptying his bladder well. Notes intermittent hematuria, reports urine as light pink in color without clot. Denies need to push/strain. Denies urge/freq. Review of Systems Constitutional: as per Subjective / HPI Genitourinary: + as per Subjective / HPI Physical Exam Constitutional: no acute distress Respiratory: no respiratory distress and no labored breathing Gastrointestinal (Abdomen): Inspection/Auscultation: abdomen normal to inspection Musculoskeletal: Head/Neck/Chest: normocephalic Skin: Warm and dry. Neurologic: awake Psychiatric: Orientation: alert, oriented x 3 and cooperative Results & Data ([facility]) Vital Signs (Past 12 Hours) Vital Signs Temp Pulse Pulse Resp BP BP Pulse Ox 07/25/21 10:47 105 H 16 125/88 96 07/25/21 10:42 108 H 16 111/71 93 07/25/21 10:27 37.0 C 93 H 16 119/87 94 07/25/21 10:05 107 H 18 107/86 98 07/25/21 09:50 100 H 18 114/85 95 07/25/21 07:30 101 H 07/25/21 07:06 37.1 C 105 H 18 132/88 96 07/25/21 03:12 36.7 C 85 18 105/62 94 07/24/21 23:16 36.6 C 91 H 18 103/73 93 PG Care Time/CCT Total # of Minutes Spent Total Time Spent with Patient: Total time spent is greater than 50% in coordination of care (as documented) at patient's floor/unit and/or counseling patient: Coding Level of Care Code 13498 Subseq Hosp Care Lvl 2 Diagnoses Hematuria R31.9
--- NOTE | 2021-07-25 13:41 | Electrocardiogram Report ---
Test Reason : Blood Pressure : / mmHG Vent. Rate : 117 BPM Atrial Rate : 113 BPM P-R Int : 000 ms QRS Dur : 148 ms QT Int : 382 ms P-R-T Axes : 000 -46 -52 degrees QTc Int : 532 ms Atrial fibrillation with rapid ventricular response Left axis deviation Right bundle branch block Abnormal ECG When compared with ECG of 23-JUL-2021 10:12, No significant change was found Confirmed by Emmanuel Medel ([id number]) on 07/25/2021 1:40:48 PM Referred By: REFERRED SELF Confirmed By:Emmanuel Medel
--- NOTE | 2021-07-25 13:51 | Electrocardiogram Report ---
Test Reason : Blood Pressure : / mmHG Vent. Rate : 104 BPM Atrial Rate : 000 BPM P-R Int : 000 ms QRS Dur : 144 ms QT Int : 296 ms P-R-T Axes : 000 -43 185 degrees QTc Int : 389 ms Atrial fibrillation with rapid ventricular response with frequent ventricular-paced complexes Left axis deviation Right bundle branch block T wave abnormality, consider lateral ischemia Abnormal ECG When compared with ECG of 25-JUL-2021 05:15, (unconfirmed) Electronic ventricular pacemaker has replaced Atrial fibrillation Confirmed by Emmanuel Medel ([id number]) on 07/25/2021 1:50:48 PM Referred By: REFERRED SELF Confirmed By:Emmanuel Medel
--- NOTE | 2021-07-25 15:24 | Hospitalist Progress Note ---
Date of Service July 25, 2021 Assessment & Plan (1) Syncope: (2) Wide-complex tachycardia: (3) New onset atrial fibrillation: (4) Nonischemic cardiomyopathy: (5) RBBB: (6) Elevated troponin: (7) Hematuria: (8) Prolonged QT interval: Plan: Syncope with cardiac arrest due to sustained VT prior to arrival requiring cardioversion in field - s/p ICD placement today 07/[address] Rae- further management per EP- device interrogation in am - Started on amiodarone 07/23, QTc stable, monitor on tele- to be discharged on amio 200 bid - Cardio and EP following Newly diagnosed Afib with RVR - Cardio following- CHADS2 VASc score of 6 but unable to tolerate heparin drip due to recurrent hematuria. Uro work up was negative - Plan to start eliquis tomorrow afternoon- discontinue all antiplatelet at discharge after resumption of eliquis to decrease risk of hematuria - On metoprolol for rate control- being adjusted - plan for cardioversion at least after 3 weeks after being adequately anticoagulated- will need at least 4 weeks anticoagulation post cardioversion Non ischemic cardiomyopathy- suspected tachycardia induced. Cardiac cath with non obstructive CAD. TTE with EF 25-30%. On GDMT with ACEI, BB- Cardio on board. Will need to switch ACEI to entresto at some point- to be done as OP as needs washout period Recurrent gross hematuria in setting of anticoagulation- while on heparin drip, resolved with holding heparin drip. H&H stable. Uro workup including CT and cystoscopy was unrevealing except for bladder stone which was removed. - Uro recommends empiric antibiotics for possible UTI- now on Bactrim started 07/24 - Finasteride 5 mg daily to shrink prostate Prolonged QTc- monitor. Avoid further QT prolonging medications. Transaminitis- related to #1. improving. Admission and Anticipated Discharge Date Admission Date: July 21, 2021 Subjective Had pacemaker placed this morning and has some soreness, otherwise feels fine. No new issues. No more hematuria. No chest pain, dizziness, shortness of breath. Physical Exam Physical Exam: General: Lying in bed, not in distress, on room air HEENT: EOMI, CARLY, MMM Chest: Left upper chest with dressing at site of ICD insertion, on sling. Fair breath sounds bilaterally, no wheezes or crackles CVS: Irregular, normal heart sounds, no murmur Abdomen: Soft, non tender, not distended, normal bowel sounds Neuro: Awake, alert, oriented, conversing well, non focal Extremities: No cyanosis, clubbing or edema Results & Data Results & Data ([facility]) Vital Signs (Past 12 Hours) Vital Signs Temp Pulse Pulse Resp BP BP Pulse Ox 07/25/21 14:30 36.5 C 99 H 20 112/83 93 07/25/21 13:25 100 H 16 105/75 92 07/25/21 12:15 98 H 16 124/89 92 07/25/21 11:12 92 H 16 123/84 92 07/25/21 10:57 105 H 16 125/88 96 07/25/21 10:42 108 H 16 111/71 93 07/25/21 10:30 108 H 07/25/21 10:27 37.0 C 93 H 16 119/87 94 07/25/21 10:05 107 H 18 107/86 98 07/25/21 09:50 100 H 18 114/85 95 07/25/21 07:30 101 H 07/25/21 07:06 37.1 C 105 H 18 132/88 96 07/25/21 03:12 36.7 C 85 18 105/62 94 Pulse Ox 07/25/21 14:30 07/25/21 13:25 07/25/21 12:15 07/25/21 11:12 07/25/21 10:57 07/25/21 10:42 07/25/21 10:30 94 07/25/21 10:27 07/25/21 10:05 07/25/21 09:50 07/25/21 07:30 07/25/21 07:06 07/25/21 03:12 Laboratory Results BMP 07/25/21 05:30 Sodium 137 Potassium 4.1 Chloride 105 Carbon Dioxide 22 BUN 17 Creatinine 0.75 Glucose 87 Calcium 9.0 Medications Administered Current Inpatient Medications Acetaminophen (Acetaminophen 325 Mg Tab) 325 mg PO Q6H PRN PRN Reason: Mild Pain Stop: 08/21/21 04:17 Last Admin: 07/25/21 13:43 Dose: 325 mg Documented by: Amiodarone HCl (Amiodarone 200 Mg Tab) 200 mg PO TIDM XUAN Stop: 08/22/21 11:59 Last Admin: 07/25/21 14:59 Dose: 200 mg Documented by: Clopidogrel Bisulfate (Clopidogrel Bisulfate 75 Mg Tab) [facility] [place] Stop: 08/21/21 08:59 Last Admin: 07/25/21 10:37 Dose: 75 mg Documented by: Finasteride (Finasteride 5 Mg Tab) 5 [facility] [place] Stop: 08/24/21 14:44 Promethazine HCl 12.5 mg/ (Sodium Chloride) 50.5 mls @ 202 mls/hr IV Q6H PRN PRN Reason: Nausea And Vomiting Stop: 08/20/21 22:53 Lisinopril (Lisinopril 5 Mg Tab) 5 mg PO [facility] Stop: 08/24/21 08:59 Last Admin: 07/25/21 10:37 Dose: 5 mg Documented by: Metoprolol Succinate (Metoprolol Succ 50mg Ext Rel Tab) 100 mg PO BID [facility] Stop: 08/23/21 20:59 Last Admin: 07/25/21 10:37 Dose: 100 mg Documented by: Nitroglycerin (Nitroglycerin Sl 0.4 Mg/Tab Tab) 0.4 mg SL UD PRN PRN Reason: Chest Pain Stop: 08/20/21 22:53 Tramadol HCl (Tramadol Hcl 50 Mg Tablet) 25 - 50 mg PO Q4H PRN PRN Reason: Pain Stop: 08/20/21 22:53 Trimethoprim/Sulfamethoxazole (Sulfamethoxazole/Trimethoprim Ds 800/160mg Tab) 1 tab PO Q12 [facility] Stop: 07/29/21 15:59 Last Admin: 07/25/21 09:40 Dose: 1 tab Documented by:
[2021-07-25] MEDS: FINASTERIDE 5 MG TAB PO SCH (17:35)
[2021-07-25] MEDS: traMADol HCL 50 MG TABLET PO PRN (19:32)
[2021-07-25] MEDS ORDERED: MELATONIN 3 MG TAB PO PRN (20:06)
[2021-07-25] MEDS ORDERED: MELATONIN 3 MG TAB PO ONE (20:09)
[2021-07-26] MEDS: traMADol HCL 50 MG TABLET PO PRN (05:59)
[2021-07-26 06:26] LABS: Hematocrit (blood only) 41.1 % (42-52); Hemoglobin 13.6 g/dL (14.0-18.0); Mean Corpuscular Hemoglobin 31.1 pg (25-34); Mean Corpuscular Hgb Conc 33.1 g/dL (32-36); Mean Corpuscular Volume 94.1 fL (80-100); Mean Platelet Volume 10.5 fL (7.4-10.4); Platelet Count 259 K/uL (130-400); RDW Coefficient of Variation 13.9 % (11.5-14.5); RDW Standard Deviation 48.1 fL (36.4-46.3); Red Blood Count 4.37 M/uL (4.7-6.1)
[2021-07-26 06:51] LABS: Albumin Level 3.9 gm/dl (3.4-5.0); BUN Creatinine Ratio 17.1 (10-20); Bilirubin Direct 0.2 mg/dl (0-0.2); Bilirubin,Total 1.3 mg/dl (0.2-1.0); Calcium 8.9 mg/dl (8.5-10.1); Creatinine Clr Calc Pharmacy 53.4 ml/min; Est GFR (African American) 76.8 ml/min; Est GFR (Non-African American) 66.3 ml/min; Potassium 4.4 mmol/L (3.5-5.1); Total Protein 5.9 gm/dl (6.0-8.3)
--- NOTE | 2021-07-26 07:37 | XRay Report ---
XR chest 2V PA/lateral HISTORY: 81 years-old Male s/p biv icd status post placement of a left subclavian pacer COMPARISON: Chest radiograph 07/21/2021 TECHNIQUE: PA and lateral views of the chest FINDINGS: The cardiac silhouette is enlarged, unchanged. Status post placement of a left subclavian pacer/AICD. No postprocedural pneumothorax identified. The leads appear to be intact. Eventration of the right h emidiaphragm. Mild linear subsegmental bibasilar and left midlung atelectasis/scarring. Degenerative changes of the shoulders and spine. Bodies within the right axillary and subscapularis recesses. IMPRESSION: 1. Status post placement of a left subclavian pacer/AICD. No postprocedural pneumothorax. 2. Bibasilar and left midlung opacities suggest atelectasis/scarring. ACT 112: Negative or not required by law. The above report was generated using voice recognition software. It may contain grammatical, syntax o r spelling errors. Electronically signed by: Jd Schaefer M.D. 07/26/2021 7:35 AM
[2021-07-26] MEDS: SULFAMETHOXAZOLE/TRIMETHOPRIM DS 800/160MG TAB PO SCH (08:17)
[2021-07-26] MEDS: lisinopril 5 MG TAB PO SCH (08:18)
[2021-07-26] MEDS: AMIODARONE 200 MG TAB PO SCH (08:18)
[2021-07-26] MEDS: CLOPIDOGREL BISULFATE 75 MG TAB PO SCH (08:18)
[2021-07-26] MEDS: FINASTERIDE 5 MG TAB PO SCH (08:18)
[2021-07-26] MEDS: METOPROLOL SUCC 50MG EXT REL TAB PO SCH (08:18)
--- NOTE | 2021-07-26 09:07 | Cardiology Progress Note ---
Date of Service July 26, 2021 Assessment & Plan (1) Syncope: (2) Wide-complex tachycardia: (3) Elevated troponin: (4) New onset atrial fibrillation: (5) Hypertension: (6) Hematuria: (7) Prolonged QT interval: (8) Nonischemic cardiomyopathy: (9) RBBB: Plan: Admission following documented symptomatic wide-complex tachycardia, sustained ventricular tachycardia with resultant syncope, status post cardioversion in the field Atrial fibrillation/flutter with a rapid ventricular response or unknown duration noted on admission; [id number] Score of at least 6 points July 22, 2021 Coronary Angiography ([facility], Dr. Saavedra) with mild nonobstructive CAD (20% ostial LM, 25% mid LAD, ectatic LCX with 20% proximal stenosis and a 30% distal stenosis, 30% mid RCA), normal intracardiac filling pressure. New onset nonischemic cardiomyopathy with NYHA Class II+ CHF, EF 25-30%, right bundle branch block with QRS duration 162 ms (suspect tachycardia induced) Status post biventricular pacemaker defibrillator implantation on 07/25/[address] Rae. Intermittent gross hematuria while on heparin; evaluation by Urology 07/24/2021 Prolonged QTc Transaminitis Mildly abnormal TSH Hypertension Dyslipidemia History of CVA, 2017 RECOMMENDATIONS/PLAN: As previously outlined Device interrogation in the AM of 07/26/2021 with a Cirrotronic Stem Roller Or Crusher Operator notable for normally functioning device Resume anticoagulation in the afternoon of 07/26/2021; Eliquis 5 mg twice a day. Patient's cost for Eliquis is $527. Case Management will provide a free 30-day coupon card. Will explore options as an outpatient, transitioning to Coumadin if the use of a DOAC remains cost prohibitive. No Aspirin or Clopidogrel (Plavix) on discharge, attempting to reduce the risk of bleeding (hematuria) given the need for anticoagulation. Metoprolol tartrate 25 mg twice a day changed to Metoprolol succinate (100 mg twice a day) this admission. Amiodarone added this admission. Discharge dosing for amiodarone is to be 200 mg twice a day. Lisinopril decreased to 5 mg/day this admission; as an outpatient, will explore transitioning to Entresto HCTZ discontinued Decrease atorvastatin to 40 mg/day noting the abnormal LFT's on presentation as well as the addition of amiodarone this admission. Future considerations to include referral for cardioversion once we are sure he can tolerate uninterrupted use of therapeutic anticoagulation. I suspect it would be best to wait for at least three weeks of therapeutic anticoagulation prior to cardioversion. Patient notably requires at least four weeks of anticoagulation post cardioversion. Cardiology follow-up with Vandana Damico in 1-2 weeks; office made aware, will contact patient to schedule with Dr. Sim or Christian Gracia if Dr. Sim is not available. Stable for discharge this morning Admission and Anticipated Discharge Date Admission Date: July 21, 2021 Subjective Patient was seen and examined, chart, medications, telemetry reviewed. No complaints this morning pacer defibrillator site healing. No dizziness or lightheadedness. Remains in atrial fibrillation Physical Exam Physical Exam: General: A&Ox3. NAD. HENT: Normocephalic. Atraumatic. Eyes: PER. Conjunctiva pink, sclera clear. Neck: No JVD. Chest: Left subclavian pacemaker pocket/dressing, no significant hematoma Heart: Irregularly irregular around 100 bpm. Extremities: No lower extremity edema. Limited neurological examination is without focal deficits. Results & Data ([facility]) Vital Signs (Past 12 Hours) Vital Signs Temp Pulse Pulse Resp BP Pulse Ox 07/26/21 07:47 36.7 C 113 H 18 131/94 94 07/26/21 03:00 36.7 C 100 H 18 115/89 95 07/25/21 23:26 36.9 C 92 H 18 108/76 94 07/25/21 23:00 94 H Laboratory Results Laboratory Results - last 24 hr 07/26/21 07/26/21 05:38 05:38 WBC 10.80 RBC 4.37 L Hgb 13.6 L Hct 41.1 L MCV 94.1 MCH 31.1 MCHC 33.1 RDW Std Deviation 48.1 H RDW Coeff of Gertrudis 13.9 Plt Count 259 MPV 10.5 H Sodium 136 Potassium 4.4 Chloride 103 Carbon Dioxide 23 Anion Gap 10 BUN 18 Creatinine 1.05 D Est Cr Clr Drug Dosing 53.4 Est GFR ( Amer) 76.8 Est GFR (Non-Af Amer) 66.3 BUN/Creatinine Ratio 17.1 Glucose 115 H Calcium 8.9 Total Bilirubin 1.3 H Direct Bilirubin 0.2 AST 17 ALT 28 Alkaline Phosphatase 77 Total Protein 5.9 L Albumin 3.9
--- NOTE | 2021-07-26 13:12 | Discharge Summary ---
Date of Service July 26, 2021 Admission HPI Per Admitting Provider History obtained from patient, family, and records. Medical history significant for CVA, hypertension, hyperlipidemia, SVT as per records, past tobacco abuse. Last confinement February 2017 for acute CVA. MRI of the brain showed infarct on the left temporal occipital region. Wide-complex tachycardia/SVT during confinement. Patient seen by Cardiology during confinement. Outpatient Zio patch recommended. Last year, patient had an episode of palpitations lasting about 15 minutes, spontaneously resolving. No consultations done. Patient has not seen his PCP for about 2 years. Patient had a witnessed syncopal event today at home. Patient felt lightheaded while meeting with a group of people at home. Patient unconscious for about 5 minutes before he woke up on his own as per family. Patient had a pulse and was breathing however during period of unconsciousness. Patient denies headache, chest pain, SOB. No witnessed seizures. Compliant with home medications. No unusual stress. Patient awake upon upon EMS arrival. Wide-complex tachycardia, cardiac rate to 280s on the monitor as per report. Patient cardioverted by EMS. Patient subsequently noted to have A. fib on the monitor. Patient brought to the ER for evaluation. 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 Exam Per Admitting Provider GENERAL: Comfortable, slightly anxious, no respiratory distress SKIN: Normal color, warm HEENT: Stanton palpebral conjunctivae, no ptosis, dry buccal mucosa NECK : Supple, no tenderness CHEST : CTA, no tenderness HEART : Irregular,, no obvious murmurs ABDOMEN: Some distention, nontender EXTREMITIES : No LE swelling/tenderness, no other conspicuous deformities noted NEUROLOGIC : Coherent, no facial asymmetry, no other gross focality Principal Diagnosis Wide complex tachycardia with syncope, VT s/p ICD, NICM, newly diagnosed Afib with RVR Discharge Exam General: Lying in bed, not in distress, on room air HEENT: EOMI, CARLY, MMM Chest: Left upper chest with dressing at site of ICD insertion. Fair breath sounds bilaterally, no wheezes or crackles CVS: Irregular, normal heart sounds, no murmur Abdomen: Soft, non tender, not distended, normal bowel sounds Neuro: Awake, alert, oriented, conversing well, non focal Extremities: No cyanosis, clubbing or edema Discharge Data Allergies Allergy/AdvReac Type Severity Reaction Status Date / Time amoxicillin Allergy Unknown Hives Unverified 07/21/21 22:13 Consultations 07/21/21 21:04 ED Decision to Admit Stat 07/21/21 22:54 Consult Cardiology Routine 07/23/21 10:06 Consult Cardiology Routine 07/24/21 09:18 Consult Urology Routine Procedures Performed Operation Date: 07/22/21 14:30 Actual Procedures s Cineradiography w/Routine Exam - Silver Saavedra MD p Cath, Left with Cors and Vent - Silver Saavedra MD Operation Date: 07/24/21 07:30 <No data on this case meets the specified criteria> Operation Date: 07/25/21 08:00 Actual Procedures p ICD Insertion Single or Dual - Randi Rae DO s Bundle of his Recording - Randi Rae DO s Lead LV (No Priopr Implant) - Randi Rae DO Ordered Studies 07/22/21 13:51 CL Cath Imgs for PACS use only Stat 07/24/21 11:08 CT abdomen pelvis wo/w con Urgent 07/25/21 07:15 EP Lab Images for PACS ONCE Hospital Course (1) Syncope: (2) Wide-complex tachycardia: (3) New onset atrial fibrillation: (4) Nonischemic cardiomyopathy: (5) RBBB: (6) Elevated troponin: (7) Hematuria: (8) Prolonged QT interval: Syncope with cardiac arrest due to sustained VT prior to arrival requiring cardioversion in field - s/p ICD placement 07/[address] Rae- device interrogation today- functioning well- discharge instructions provided by cardio - Started on amiodarone 07/23, QTc stable, being discharged on amio 200 bid per cardio - F/u with cardio as OP Newly diagnosed Afib with RVR - Cardio following- CHADS2 VASc score of 6 but unable to tolerate heparin drip due to recurrent hematuria. Uro work up was negative - Being discharged on eliquis per cardio- 30 day free coupon provided- after which cardio will other option for anticoag as outpatient - Plavix discontinued to decrease risk of hematuria - Beta ronak changed to 100 bid for better rate control; also on amio - plan for cardioversion at least after 3 weeks after being adequately anticoagulated- will need at least 4 weeks anticoagulation post cardioversion - F/u cardio in 1-2 weeks Non ischemic cardiomyopathy, RBBB with QRS duration 162 ms- suspected tachycardia induced. - Cardiac cath 07/[address] Saavedra- mild nonobstructive CAD (20% ostial LM, 25% mid LAD, ectatic LCX with 20% proximal stenosis and a 30% distal stenosis, 30% mid RCA), normal intracardiac filling pressure. - TTE with EF 25-30%. - Started on GDMT with lisinopril, toprol- plan to switch ACEI to entresto at some point- to be done as OP per cardio as needs washout period - S/p ICD 07/25 - No aspirin or plavix at discharge to decrease risk of hematuria, as he is being discharged on eliquis for his Afib Recurrent gross hematuria in setting of anticoagulation- while on heparin drip, resolved with holding heparin drip. H&H stable. - Uro workup 07/[address] and cystoscopy was unrevealing except for bladder stone which was removed. - Uro recommends empiric antibiotics for possible UTI- now on Bactrim started 07/24- 5 more days at discharge given his ICD and instrumentation - Finasteride 5 mg daily to shrink prostate Transaminitis- related to #1. improving. H/o CVA 2016 He is comfortable and stable for discharge. Denies any needs. Total Time Total Time Spent Total Time Spent (In Minutes): 45 Discharge Plan Discharge Items Patient Disposition: Home - Self-Care Reason For Visit: AF Discharge Diagnosis: wide complex VT with syncope, Afib with RVR, non ischemic cardiomyopathy Activity: As commented below Activity Comment: do not raise the left elbow over the left shoulder for 1 month Lifting: No more than 10 pounds Lifting Comment: Do not lift more than 10 pounds with the left arm for 2 weeks Bathing: Keep incision dry Bathing Comment: keep dressing on & dry until wound check next week Non-emergency contact: Primary Care Provider and Dry Cell Sealer Call non-emergency contact if: you have any medication questions, your pain is concerning for you and you have a fever Follow-up/Referrals: Mack Sim DO [Dry Cell Sealer] - (Date & Time 08/01/2021 4:00 PM Provider Mack Sim DO Department Cardiology, [facility] ) David Almaraz MD [Primary Care Provider] - Diet: Heart Healthy [facility] Attending Provider Instructions: Device and wound check next week at [facility] Cardiology Start the blood thinner eliquis from this evening - Eliquis 5 mg twice a day. Cost for Eliquis is $527. Case Management will provide a free 30-day coupon card. Cardiology will explore options as an outpatient, transitioning to Coumadin if the use of a DOAC remains cost prohibitive. No Aspirin or Clopidogrel (Plavix) to decrease risk of bleeding in urine as you are already on eliquis Call cardio/urology if you start bleeding in the urine Stop your Metoprolol tartrate - we have switched you to Metoprolol succinate (100 mg twice a day) to keep your heart rate in control We have started you on amiodarone 1 tab twice daily to keep the heart rate in rhythm Stop your lisinopril-hydrochlorthiazide. We have switched it to lisinopril 5 mg daily We have decreased your atorvastatin to 40 mg/day because of abnorma liver function test as well as you being on amiodarone now Cardiology follow-up with Vandana Damico in 1-2 weeks; office made aware, will contact you for appointment You will need cardioversion after about 3 weeks if still in atrial fibrillation and you are tolerating the blood thinner without any issues. Pending Studies at Discharge: No Stand-Alone Forms: My [facility], Smoking Cessation Medications and DC Order Prescriptions: New metoprolol succinate 50 mg Tablet Extended Release 24 Hr 100 mg PO BID Qty: 60 RF: 0 sulfamethoxazole-trimethoprim [Bactrim DS] 800-160 mg Tablet 1 tab PO Q12 5 Days Qty: 10 RF: 0 lisinopril [Zestril] 5 mg Tablet 5 mg PO QAM Qty: 30 RF: 0 finasteride [Proscar] 5 mg Tablet 5 mg PO QAM Qty: 30 RF: 0 atorvastatin [Lipitor] 40 mg tablet 40 mg PO HS Qty: 30 RF: 0 Eliquis 5 mg tablet 5 mg PO BID Qty: 60 RF: 0 amiodarone 200 mg tablet 200 mg PO BID 30 Days Qty: 60 RF: 0 Continued diphenhydramine HCl 25 mg Tablet 50 mg PO HS PRN (Reason: Allergy Symptoms) RF: 0 Discontinued atorvastatin 80 mg tablet 80 mg PO DAILY RF: 0 clopidogrel 75 mg tablet 75 mg PO DAILY Qty: 30 RF: 2 lisinopril-hydrochlorothiazide 10-12.5 mg tablet 1 tab PO DAILY RF: 0 metoprolol tartrate 25 mg tablet 25 mg PO BID RF: 0 Discharge Orders: Discharge Order (Routine); Ordered 07/26/21 Ordered By: Davion Mello/Other Patient Handouts: A1C, Proscar Oral Tablet 5 mg, Amiodarone Oral Tablet 200 mg, Lisinopril Oral Tablet 5 mg, Eliquis Oral Tablet 5 mg Admission Data Admit Date/Time: 07/21/21 21:48 Attending Provider: Davion Javier Admit Provider: Driss Carranza Primary Care Provider: David Almaraz Other Providers: Driss Carranza ; Weston Valentine ; Mack Sim ; Yogi Sigala ; Jin Aviles ; David Stein ; Christian Garcia ; Di Harrell ; Randi Rae Ashley M. ; Nando Suarez ; Andres Abarca Other Interventions: Discharge Summary Assessment (RN) Last Done: 07/26/21 11:08
--- NOTE | 2021-08-05 12:33 | Operative Report (OR) ---
DATE OF PROCEDURE: 07/25/2021. PREOPERATIVE DIAGNOSES: Cardiac arrest, syncope, atrial fibrillation with rapid ventricular response and nonischemic cardiomyopathy, and chronic heart failure with reduced ejection fraction. PROCEDURE: Biventricular rate responsive implantable cardiac defibrillator under fluoroscopic guidance along with peripheral venogram and intracardiac electrogram His bundle recordings. SURGEON: Randi Rae DO. ASSISTANTS: None. ANESTHESIA: Monitored conscious sedation administered under my supervision by Cherelle Salvador. Start time 8:16, end time 9:41. A total of 3 mg of Versed and 100 mcg of fentanyl. INTRAVENOUS FLUIDS: 90 mL. ANTIBIOTICS: 1 g of Ancef. CONTRAST: 20 mL. BLOOD LOSS: 30 mL. URINE OUTPUT: Not applicable. SPECIMENS: None. FINDINGS: See below. DRAINS: None. COMPLICATIONS: None. CONDITION: Stable. INDICATIONS: This is an 81-year-old gentleman with a past medical history for enlarged prostate, right bundle-branch block. He was admitted to [facility] after cardiac arrest for VT, wide complex tachycardia and syncope, found to also have atrial fibrillation, probably persistent with rapid ventricular response, started on anticoagulation and AV marjan blockers, hypertension, hyperlipidemia, prolonged QT, nonischemic cardiomyopathy, found on echo at 25%, thought to be due to tachycardia-induced, coronary artery disease by cath in this admission with mild nonobstructive disease. The patient was recommended a defibrillator prior to his hospital discharge. In addition, he was recommended a BiV ICD and there is a concern that ultimately he might need an AV marjan ablation given his conduction disease and he has a high chance of pacing a lot. We did not want him pacing from the RV apex. CONSENT: Consent was obtained prior to the patient going into the electrophysiology lab. The patient was informed of the risks, benefits, and alternatives to the procedure. Risks include, but not limited to, sudden cardiac , cardiac arrhythmia, cerebrovascular accident, myocardial infarction, injury to blood vessels, chamber of the heart and lung, bleeding and infection. The patient understood these risks and agreed to the procedure as planned. Informed consent was obtained. DESCRIPTION OF PROCEDURE: The patient was brought into the electrophysiology lab in a fasting state. He was connected to continuous cardiac cath lab manager. Timeout was performed to ensure patient's identity and the procedure correctly. He was prepped and draped over the left infraclavicular space in normal surgical standard fashion. Monitored conscious sedation was given throughout the procedure for patient's comfort level. He received prophylactic antibiotics prior to incision. [place] precautions were maintained throughout the procedure. 10 mL of 1% lidocaine-bupivacaine mixture were given in the left deltopectoral groove. An incision was made in the left deltopectoral groove. Blunt dissection was performed down to the pectoralis muscle. Then, a defibrillator pocket was created using blunt dissection over the pectoralis muscle within the pectoralis fascia. Then, a peripheral venogram was performed to identify the axillary vein. Venous axillary access was obtained through a needlestick on 2 separate occasions. On the more lateral stick, a 7-Zimbabwean sheath was inserted over one of the guidewires, the dilator was removed and a second guidewire was inserted through the sheath to allow for retained venous access. Sheath was then removed. A 9.5-Zimbabwean sheath was inserted over one of the guidewires in the more lateral stick. The guidewire and dilator removed. The right ventricular defibrillator lead was then advanced into the right ventricle, positioned in the right ventricular apex under fluoroscopic guidance. I did reposition it one time. There was adequate pacing and sensing thresholds and no diaphragmatic stimulation with high output pacing. The 9.5-Zimbabwean sheath was peeled away and the lead was fixated to pectoralis muscle using 0 silk suture. Through the more medial stick, a 7-Zimbabwean sheath was inserted over the guidewire, the guidewire and dilator removed. The His C315 sheath was then advanced over a Glidewire into the right ventricle. The Glidewire and dilator removed, then the pacing lead was advanced through the sheath. Intracardiac electrogram His bundle recordings were performed, see below for results. Once I found where the His bundle was, I marked where this was on my fluoroscopy screen when the camera was in LUNA 30. I then came down about 2 cm from this in a line that would extend out to the apex to start trying to position my left bundle lead. I did have to reposition it a few times, but ultimately I had a nice W pattern and paced complex in my V1 and I was able to start screwing it in with clockwise turns into the septum when the camera was in FRISIAN 30 and my pacing complex nicely in V1 changed to have an R prime. I then gave contrast through the sheath to see how I was well into the septum. I then slit the His C315 sheath under fluoroscopic guidance. I left the 7-Zimbabwean sheath in while I positioned the right atrial lead. Through the more lateral stick, the retained guidewire, a 7-Zimbabwean sheath was advanced over the Glidewire and dilator removed. The right atrial lead was then advanced into right atrium and positioned in the right atrial appendage under fluoroscopic guidance. There was adequate sensing of the fib waves. The sheath was then peeled away and the lead was fixated to pectoralis muscle using 0 silk suture. A 7-Zimbabwean sheath around the left bundle lead was then peeled away and the lead was fixated to pectoralis muscle using 0 silk suture. The pocket was flushed with copious amounts of vancomycin and saline wash and inspected for hemostasis. The leads were then attached to the pulse generator making sure the pins were in appropriate position, passed set screws, and set screws were all tightened. Pulse generator was then placed in a TYRX pouch followed then by being placed in the pocket, making sure the leads were lying flat beneath the device. The incision was closed in a 3-layer fashion using 2-0 Vicryl interrupted suture followed by 3-0 Vicryl interrupted suture, followed by 4-0 Monocryl running stitch and Dermabond was applied followed by Telfa and Tegaderm dressing. EQUIPMENT: 1. The pulse generator is a Medtronic Needle HRia MRI NUCLEAR PLANT OPERATOR-D SureScan [id number], serial number [id number]. 2. TYRX pouch, reference [id number], lot number [id number]. 3. Right atrial lead, Medtronic 5076-52 cm, serial number [id number]. 4. Right ventricular lead, Medtronic 6935M-62 cm, serial number [id number]. 5. Left bundle lead, Medtronic 3830-69 cm, serial number [id number]. INTRAPROCEDURAL FINDINGS: INTRACARDIAC ELECTROGRAM HIS BUNDLE RECORDINGS: 1. The HV was 56 milliseconds, no AH, patient was in AFib. 2. Right atrial lead fib waves 2.2 millivolts, impedance 796 ohms. No threshold testing, patient was in AFib. 3. Right ventricular lead, R waves 6.8 millivolts, impedance 632 ohms, threshold 0.8 volts at 0.5 milliseconds. 4. Left bundle lead, R waves 6.5 millivolts, impedance 1064 ohms, threshold 0.3 volts at 0.5 milliseconds. FINAL MEASUREMENTS THROUGH THE DEVICE. 1. Right atrial lead fib waves 1.9 millivolts, impedance 456 ohms. 2. Right ventricular lead, R waves 2.6 millivolts, unipolar 4.5 millivolts, impedance 399 ohms, threshold 1 volt at 0.4 milliseconds. 3. Left bundle lead, impedance 551 ohms, threshold 0.5 volts at 0.4 milliseconds. FINAL PARAMETERS: DDD 70/130. Right atrial and right ventricular amplitude 3.5 volts, pulse width 0.4 milliseconds, sensitivity 0.3 millivolts. Left bundle lead amplitude 3.5 volts, pulse width 0.4 milliseconds. A VT monitor zone 150 beats per minute and a VF zone at 207 beats per minute. IMPRESSION: Successful biventricular rate responsive implantable cardiac defibrillator implantation along with peripheral venogram and intracardiac electrogram His bundle recordings secondary to cardiac arrest, syncope, nonischemic cardiomyopathy, right bundle-branch block, chronic heart failure with reduced ejection fraction and atrial fibrillation. PLAN: Monitor the patient post-procedure and monitor the patient overnight, 12- lead ECG, chest x-ray. He cannot lift the left elbow or left shoulder for 1 month. He cannot lift more than 10 pounds with left arm for 2 weeks. He is to keep the dressing on and dry until his wound check next week. He can start Eliquis. Absolutely, no IV systemic heparin or Lovenox, and ultimately arrange for probably an outpatient cardioversion, and we will see how he holds. Job ID: [id number] [facility]
== END 2021-07-26 12:30 | disposition home or self-care (01) | DRG 225 ==
LOC: ED 19:31 → SUATTDRO 21:48 → 2S 21:48
PROC: EPB.ICD (2021-07-25 08:00)
DX: I25.10 Atherosclerotic heart disease of native coronary artery without angina pectoris; I47.1 Supraventricular tachycardia; Z87.891 Personal history of nicotine dependence; I48.91 Unspecified atrial fibrillation; T45.515A Adverse effect of anticoagulants, initial encounter; R31.0 Gross hematuria; Z79.02 Long term (current) use of antithrombotics/antiplatelets; R74.01 Elevation of levels of liver transaminase levels; D86.9 Sarcoidosis, unspecified; I45.10 Unspecified right bundle-branch block; I46.2 Cardiac arrest due to underlying cardiac condition; Z88.1 Allergy status to other antibiotic agents; Z86.73 Personal history of transient ischemic attack (TIA), and cerebral infarction without residual deficits; J98.11 Atelectasis; R73.03 Prediabetes; I42.8 Other cardiomyopathies; Y92.239 Unspecified place in hospital as the place of occurrence of the external cause

== ENCOUNTER 2021-11-18 10:58 | Observation (INO) ==
[2021-11-18 12:37] LABS: Basophils # (auto) 0.03 K/uL (0-0.2); Basophils % (auto) 0.5 %; Eosinophils # (auto) 0.01 K/uL (0-0.50); Eosinophils % (auto) 0.2 %; Hematocrit (blood only) 45.4 % (40.1-51.0); Hemoglobin 14.7 g/dl (14.0-18.0); Immature Granulocytes # (auto) 0.03 K/uL (0.00-0.02); Immature Granulocytes % (auto) 0.5 %; Lymphocytes # (auto) 0.91 K/uL (1.2-3.4); Mean Corpuscular Hemoglobin 31.4 pg (25.0-34.0); Mean Corpuscular Hgb Conc 32.4 g/dL (32.0-36.0); Mean Platelet Volume 9.6 fL (9.4-12.4); Monocytes # (auto) 0.54 K/uL (0.24-0.82); Monocytes % (auto) 8.3 %; Neutrophils # (auto) 4.99 K/uL (1.4-6.5); Neutrophils % (auto) 76.5 %; Platelet Count 239 K/uL (130-400); RDW Coefficient of Variation 14.6 % (11.5-14.5); RDW Standard Deviation 51.8 fL (36.4-46.3); Red Blood Count 4.68 M/uL (4.63-6.08); White Blood Count 6.51 K/ul (4.8-10.8)
[2021-11-18 12:58] LABS: Albumin Globulin Ratio 1.6 (0.9-2); Albumin Level 4.2 gm/dl (3.4-5.0); BUN Creatinine Ratio 13.1 (10-20); Bilirubin,Total 1.4 mg/dl (0.2-1.0); Calcium 9.2 mg/dl (8.5-10.1); Creatinine Clr Calc Pharmacy 45.9 ml/min; Est GFR (Non-African American) 55.3 ml/min; Globulin 2.6 gm/dl (2.5-4.0); Total Protein 6.8 gm/dl (6.0-8.3)
[2021-11-18 12:59] LABS: Partial Thromboplastin Ratio 1.1; Partial Thromboplastin Time 30.6 Seconds (21.0-31.0); Prothrombin Time 20.4 Seconds (9.0-12.0)
--- NOTE | 2021-11-18 13:36 | Electrocardiogram Report ---
Test Reason : Blood Pressure : / mmHG Vent. Rate : 089 BPM Atrial Rate : 208 BPM P-R Int : 146 ms QRS Dur : 136 ms QT Int : 400 ms P-R-T Axes : 000 067 237 degrees QTc Int : 486 ms AV dual-paced rhythm Abnormal ECG When compared with ECG of 28-OCT-2021 07:43, Vent. rate has increased BY 18 BPM Confirmed by Yovani Guzman ([id number]) on 11/18/2021 1:36:25 PM Referred By: Confirmed By:Yovani Guzman
--- NOTE | 2021-11-18 13:45 | XRay Report ---
XR chest 1V portable HISTORY: 81 years-old Male illness acute illness COMPARISON: 07/27/2019 TECHNIQUE: AP view of the chest FINDINGS: Cardiac silhouette is enlarged. Left subclavian pacer/AICD. Atherosclerosis of the aorta. No pneumoth orax. Trace pleural effusions suspected. Pulmonary vascular congestion. Linear subsegmental bibasilar predominant opacities. Degenerative changes of the shoulders and spine. Loose bodies of the right gl enohumeral joint. IMPRESSION: 1. Cardiomegaly with pulmonary vascular congestion. 2. Trace pleural effusions with mild bibasilar densities suggestive of atelectasis. ACT 112: Negative or not required by law. The above report was generated using voice recognition software. It may contain grammatical, syntax o r spelling errors. Electronically signed by: Jd Schaefer M.D. 11/18/2021 1:43 PM
--- NOTE | 2021-11-18 13:55 | Emergency Department Note ---
History of Present Illness General Chief complaint: Dehydration Stated complaint: DEHYDRATED, HEART FAILURE, SOB, NOT EATING Time Seen by Provider: 11/18/21 13:28 Source: patient Mode of arrival: ambulatory Limitations: no limitations History of Present Illness Provider complaint: Fatigue, loss of appetite, chest pain This is an 81-year-old male brought in by family due to concern for fatigue, loss of appetite, and recent complaints of chest pain. Patient also noticed he appears to have an increased respiratory rate and increased trouble breathing although the patient denies overt shortness of breath. Patient with significant recent cardiac history including syncope and subsequent cardiac arrest due to ventricular tachycardia. Patient had nonobstructive cardiac cath with severely reduced ejection fraction. Patient had a BiV pacemaker placed. Patient was noted to have a history of underlying atrial fibrillation. He was cardioverted multiple times and family states medications have continued to be adjusted. He follows with Dr. Sim of cardiology. He states he began noticing nasal congestion a few days ago, denies cough. He denies nausea, vomiting, abdominal pain, change in stools. Denies any leg swelling. Family states they have been trying to keep him hydrated as there was concern after outpatient labs recently that he was dehydrated. Due to his decreased appetite and oral intake they thought this was the crux of his symptoms. Family also notes they have been spot checking his oxygen level at home and found him typically to be in the 80s. Pt seen during a time of high acuity and national emergency pandemic while wearing PPE. Home Medications Medication Instructions Recorded Confirmed Type diphenhydramine HCl 25 mg tablet 50 mg PO HS PRN Allergy Symptoms 07/21/21 11/18/21 History atorvastatin 40 mg tablet (Lipitor) 40 mg PO HS #30 tabs 07/26/21 11/18/21 Rx lisinopril 5 mg tablet (Zestril) 5 mg PO QAM #30 tabs 07/26/21 11/18/21 Rx amiodarone 200 mg tablet 200 mg PO HS 10/17/21 11/18/21 History warfarin 1 mg tablet 2 mg PO UD 10/17/21 11/18/21 History finasteride 5 mg tablet (Proscar) 5 mg PO QAM #90 tabs 11/04/21 11/18/21 Rx metoprolol succinate 100 mg 100 mg PO BID 08/23/22 08/23/22 History tablet,extended release 24 hr furosemide 20 mg tablet 20 mg PO Q OTHER DAY #15 tabs 11/19/21 Rx potassium chloride 20 mEq 20 meq PO Q OTHER DAY #15 tabs 11/19/21 Rx tablet,extended release Allergies Allergy/AdvReac Type Severity Reaction Status Date / Time amoxicillin Allergy Unknown Hives Verified 11/18/21 16:39 Past Med/Surg History Medical History Atrial fibrillation, new onset Dx June 2021 > digoxin, Coumadin > follows with Dr. Sim > pacemaker BPH (benign prostatic hyperplasia) CAD (coronary artery disease) Per cardio records- mild nonobstructive CAD (20% ostial LM, 25% mid LAD, ectatic LCX with 20% proximal stenosis and a 30% distal stenosis, 30% mid RCA), normal intracardiac filling pressure. History of COVID-16 Mar 2020 > "never tested", not hospitalized, "bad cold symptoms">resolved. Hx of basal cell carcinoma "Nose, back, chest" Hyperlipidemia Hypertension Nonischemic cardiomyopathy EF 20-30% S/p pacer/ICD placement Pacemaker Pacemaker/ACID. Placed 06/2021 [facility] > Medtronic RBBB Stroke Approx 7 yrs ago > no residual effects, mild stroke per pt > no neuro Ventricular tachycardia Pacemaker/ICD in place Surgical History History of cardiac cath 06/2021 > [facility] > no stents; f/u Dr. Smi History of colonoscopy History of tooth extraction Family History Father Colorectal cancer Social History Smoking Status: Never smoker Second Hand Exposure: No; Hx Alcohol Use: No Hx Substance Use: No Preferred Language: Vietnamese Communication Ability: Effective Director Clinical Pharmacology Required: No Beliefs That Will Affect Care: None Current Living Situation: Spouse and Family Feels Safe at Home: Yes Assistive Devices: None Review of Systems A total of 10 systems reviewed and were otherwise negative All systems reviewed & are unremarkable except as noted in HPI & below Physical Exam Vital Signs Vital Signs - 24 hr 11/18/21 11:18 Temperature 36.6 C Temperature Source Skin Pulse Rate 78 Respiratory Rate 20 Respiratory Effort / Characteristics Non-Labored Spontaneous Respiratory Depth Normal Respiratory Pattern Regular Blood Pressure 126/83 Blood Pressure Mean 97 Pulse Oximetry 96 Oxygen Delivery Method Room Air Sepsis Recent Fever Within 48 Hours No Sepsis New/Unexplained Change in Mental Status N/A Sepsis Action Taken by Nursing No Action Required GENERAL: alert, well appearing, well nourished, no distress, non-toxic EYE EXAM: normal conjunctiva, PERRL and EOM's grossly intact OROPHARYNX: no exudate, no erythema, lips, buccal mucosa, and tongue normal and mucous membranes are moist NECK: supple, no nuchal rigidity, no adenopathy, non-tender LUNGS: Clear to auscultation. Normal chest wall mechanics, no w/r/r HEART: no murmurs, S1 normal and S2 normal ABDOMEN: abdomen soft, non-tender, normo-active bowel sounds, no masses, no rebound or guarding. Increased abdominal exertion with breathing noted. Conversational tachypnea. BACK: Back is symmetrical on inspection and there is no deformity, no midline tenderness, no CVA tenderness. SKIN: no rashes and no bruising UPPER EXTREMITIES: upper extremities are grossly normal. FROM, nml pulses b/l. LOWER EXTREMITIES: No pitting edema. FROM, nml pulses b/l. NEURO EXAM: Normal sensorium, cranial nerves II-XII grossly intact, normal speech, no gross weakness of arms, no gross weakness of legs. Gross sensation intact. Course Course 1511: Patient and family updated on results. Patient now admits to chest pain with exertion in addition to increased shortness of breath with exertion. Administered Medications Discontinued Medications Amiodarone HCl (Amiodarone 200 Mg Tab) 200 mg PO HS XUAN Stop: 12/18/21 20:59 Last Admin: 11/18/21 21:17 Dose: 200 mg Documented By: DAPHNIE Atorvastatin Calcium (Atorvastatin 40 Mg Tab) 40 mg PO HS XUAN Stop: 12/18/21 20:59 Last Admin: 11/18/21 21:16 Dose: 40 mg Documented By: DAPHNIE Finasteride (Finasteride 5 Mg Tab) 5 mg PO QAM XUAN Stop: 12/19/21 08:59 Last Admin: 11/19/21 08:55 Dose: 5 mg Documented By: MATT Furosemide (Furosemide 40 Mg/4 Ml Vial) 40 mg IV ONE ONE Stop: 11/18/21 15:13 Last Admin: 11/18/21 15:29 Dose: 40 mg Documented By: ALBINO Furosemide (Furosemide Inj 20 Mg/2 Ml Vial) 20 mg IV QAM [facility] Stop: 12/19/21 08:59 Last Admin: 11/19/21 08:55 Dose: 20 mg Documented By: MATT Lisinopril (Lisinopril 5 Mg Tab) 5 mg PO QAM [facility] Stop: 12/19/21 08:59 Last Admin: 11/19/21 08:55 Dose: 5 mg Documented By: WS Metoprolol Succinate (Metoprolol Succ 50mg Ext Rel Tab) 100 mg PO BID [facility] Stop: 12/18/21 20:59 Last Admin: 11/19/21 08:55 Dose: 100 mg Documented By: Admin: 11/18/21 21:17 Dose: 100 mg Documented By: DAPHNIE Potassium Chloride (Potassium Chloride Crtab 20 Meq Tabcr) 40 meq PO NOW STA Stop: 11/19/21 12:01 Last Admin: 11/19/21 12:20 Dose: 40 meq Documented By: MATT Warfarin Sodium (Warfarin Sod 1 Mg Tab) 1 mg PO [id number] [facility] Stop: 12/18/21 16:59 Last Admin: 11/18/21 21:15 Dose: 1 mg Documented By: DAPHNIE Medical Decision Making Differential Diagnosis Differential diagnoses includes but is not limited to pneumonia, bronchitis, COPD/Asthma exacerbation, pneumothorax, pulmonary embolism, congestive heart failure, acute coronary syndrome Medical Records Attestation: I reviewed the patient's medical records. Home Medications Current Medication List: was personally reviewed by me Laboratory Data Attestation: I reviewed the patient's lab results. Result diagrams: 11/19/21 05:43 11/19/21 05:43 Lab Results 11/18/21 11/18/21 11/18/21 Range/Units 12:24 12:24 12:24 WBC 6.51 (4.8-10.8) K/ul RBC 4.68 (4.63-6.08) M/uL Hgb 14.7 (14.0-18.0) g/dl Hct 45.4 (40.1-51.0) % MCV 97.0 (80.0-100.0) fL MCH 31.4 (25.0-34.0) pg MCHC 32.4 (32.0-36.0) g/dL RDW Std Deviation 51.8 H (36.4-46.3) fL RDW Coeff of Gertrudis 14.6 H (11.5-14.5) % Plt Count 239 (130-400) K/uL MPV 9.6 (9.4-12.4) fL Immature Gran % (Auto) 0.5 % Neut % (Auto) 76.5 % Lymph % (Auto) 14.0 % [place] % (Auto) 8.3 % Eos % (Auto) 0.2 % Baso % (Auto) 0.5 % Neut # (Auto) 4.99 (1.4-6.5) K/uL Lymph # (Auto) 0.91 L (1.2-3.4) K/uL [place] # (Auto) 0.54 (0.24-0.82) K/uL Eos # (Auto) 0.01 (0-0.50) K/uL Baso # (Auto) 0.03 (0-0.2) K/uL Immature Gran # (Auto) 0.03 H (0.00-0.02) K/uL PT 20.4 H (9.0-12.0) Seconds INR 2.0 H (0.9-1.1) APTT 30.6 (21.0-31.0) Seconds PTT Ratio 1.1 Sodium 135 L (136-145) mmol/L Potassium 4.0 (3.5-5.1) mmol/L Chloride 100 (98-107) mmol/L Carbon Dioxide 28 (21-32) mmol/L Anion Gap 7 (3-11) BUN 16 (6-23) mg/dl Creatinine 1.22 (0.6-1.4) mg/dl Est Cr Clr Drug Dosing 45.9 ml/min Est GFR ( Amer) 64.0 ml/min Est GFR (Non-Af Amer) 55.3 ml/min BUN/Creatinine Ratio 13.1 (10-20) Glucose 103 H (70-99(Fasting)) mg/dl Calcium 9.2 (8.5-10.1) mg/dl Magnesium (1.7-2.4) mg/dl Total Bilirubin 1.4 H (0.2-1.0) mg/dl AST 24 (13-39) U/L ALT 28 (7-52) U/L Alkaline Phosphatase 74 (34-104) U/L Troponin I High Sens (0-20) pg/ml B-Natriuretic Peptide (0-100) pg/ml Total Protein 6.8 (6.0-8.3) gm/dl Albumin 4.2 (3.4-5.0) gm/dl Globulin 2.6 (2.5-4.0) gm/dl Albumin/Globulin Ratio 1.6 (0.9-2) TSH (0.300-4.500) uIu/ml Urine Color Urine Appearance (Clear) Urine pH (4.5-7.5) Ur Specific [place] (1.000-1.030) Urine Protein (Negative) Urine Glucose (UA) (Negative) Urine Ketones (Negative) Urine Blood (Negative) Urine Nitrite (Negative) Urine Bilirubin (Negative) Urine Urobilinogen (Negative) Ur Leukocyte Esterase (Negative) Urine WBC (Auto) (0-5) /hpf Urine RBC (Auto) (0-4) /hpf U Hyaline Cast (Auto) (0-5) /lpf U Epithel Cells (Auto) (0-5) /lpf Urine Bacteria (Auto) (Negative) Digoxin (0.8-2.0) ng/ml SARS-CoV-2 (PCR) (Negative) Influenza Type A (PCR) (Neg) Influenza Type B (PCR) (Neg) RSV (RT-PCR) (Neg) 11/18/21 11/18/21 11/18/21 Range/Units 14:11 14:11 14:11 WBC (4.8-10.8) K/ul RBC (4.63-6.08) M/uL Hgb (14.0-18.0) g/dl Hct (40.1-51.0) % MCV (80.0-100.0) fL MCH (25.0-34.0) pg MCHC (32.0-36.0) g/dL RDW Std Deviation (36.4-46.3) fL RDW Coeff of Gertrudis (11.5-14.5) % Plt Count (130-400) K/uL MPV (9.4-12.4) fL Immature Gran % (Auto) % Neut % (Auto) % Lymph % (Auto) % [place] % (Auto) % Eos % (Auto) % Baso % (Auto) % Neut # (Auto) (1.4-6.5) K/uL Lymph # (Auto) (1.2-3.4) K/uL [place] # (Auto) (0.24-0.82) K/uL Eos # (Auto) (0-0.50) K/uL Baso # (Auto) (0-0.2) K/uL Immature Gran # (Auto) (0.00-0.02) K/uL PT (9.0-12.0) Seconds INR (0.9-1.1) APTT (21.0-31.0) Seconds PTT Ratio Sodium (136-145) mmol/L Potassium (3.5-5.1) mmol/L Chloride (98-107) mmol/L Carbon Dioxide (21-32) mmol/L Anion Gap (3-11) BUN (6-23) mg/dl Creatinine (0.6-1.4) mg/dl Est Cr Clr Drug Dosing ml/min Est GFR ( Amer) ml/min Est GFR (Non-Af Amer) ml/min BUN/Creatinine Ratio (10-20) Glucose (70-99(Fasting)) mg/dl Calcium (8.5-10.1) mg/dl Magnesium 2.0 (1.7-2.4) mg/dl Total Bilirubin (0.2-1.0) mg/dl AST (13-39) U/L ALT (7-52) U/L Alkaline Phosphatase (34-104) U/L Troponin I High Sens 12.5 (0-20) pg/ml B-Natriuretic Peptide 1522 H (0-100) pg/ml Total Protein (6.0-8.3) gm/dl Albumin (3.4-5.0) gm/dl Globulin (2.5-4.0) gm/dl Albumin/Globulin Ratio (0.9-2) TSH 2.820 (0.300-4.500) uIu/ml Urine Color Urine Appearance (Clear) Urine pH (4.5-7.5) Ur Specific [place] (1.000-1.030) Urine Protein (Negative) Urine Glucose (UA) (Negative) Urine Ketones (Negative) Urine Blood (Negative) Urine Nitrite (Negative) Urine Bilirubin (Negative) Urine Urobilinogen (Negative) Ur Leukocyte Esterase (Negative) Urine WBC (Auto) (0-5) /hpf Urine RBC (Auto) (0-4) /hpf U Hyaline Cast (Auto) (0-5) /lpf U Epithel Cells (Auto) (0-5) /lpf Urine Bacteria (Auto) (Negative) Digoxin (0.8-2.0) ng/ml SARS-CoV-2 (PCR) (Negative) Influenza Type A (PCR) (Neg) Influenza Type B (PCR) (Neg) RSV (RT-PCR) (Neg) 11/18/21 11/18/21 11/18/21 Range/Units 14:11 14:37 15:20 WBC (4.8-10.8) K/ul RBC (4.63-6.08) M/uL Hgb (14.0-18.0) g/dl Hct (40.1-51.0) % MCV (80.0-100.0) fL MCH (25.0-34.0) pg MCHC (32.0-36.0) g/dL RDW Std Deviation (36.4-46.3) fL RDW Coeff of Gertrudis (11.5-14.5) % Plt Count (130-400) K/uL MPV (9.4-12.4) fL Immature Gran % (Auto) % Neut % (Auto) % Lymph % (Auto) % [place] % (Auto) % Eos % (Auto) % Baso % (Auto) % Neut # (Auto) (1.4-6.5) K/uL Lymph # (Auto) (1.2-3.4) K/uL [place] # (Auto) (0.24-0.82) K/uL Eos # (Auto) (0-0.50) K/uL Baso # (Auto) (0-0.2) K/uL Immature Gran # (Auto) (0.00-0.02) K/uL PT (9.0-12.0) Seconds INR (0.9-1.1) APTT (21.0-31.0) Seconds PTT Ratio Sodium (136-145) mmol/L Potassium (3.5-5.1) mmol/L Chloride (98-107) mmol/L Carbon Dioxide (21-32) mmol/L Anion Gap (3-11) BUN (6-23) mg/dl Creatinine (0.6-1.4) mg/dl Est Cr Clr Drug Dosing ml/min Est GFR ( Amer) ml/min Est GFR (Non-Af Amer) ml/min BUN/Creatinine Ratio (10-20) Glucose (70-99(Fasting)) mg/dl Calcium (8.5-10.1) mg/dl Magnesium (1.7-2.4) mg/dl Total Bilirubin (0.2-1.0) mg/dl AST (13-39) U/L ALT (7-52) U/L Alkaline Phosphatase (34-104) U/L Troponin I High Sens (0-20) pg/ml B-Natriuretic Peptide (0-100) pg/ml Total Protein (6.0-8.3) gm/dl Albumin (3.4-5.0) gm/dl Globulin (2.5-4.0) gm/dl Albumin/Globulin Ratio (0.9-2) TSH (0.300-4.500) uIu/ml Urine Color Yellow Urine Appearance Clear (Clear) Urine pH 5.5 (4.5-7.5) Ur Specific [place] 1.008 (1.000-1.030) Urine Protein Negative (Negative) Urine Glucose (UA) Negative (Negative) Urine Ketones Negative (Negative) Urine Blood 2+ H (Negative) Urine Nitrite Negative (Negative) Urine Bilirubin Negative (Negative) Urine Urobilinogen Negative (Negative) Ur Leukocyte Esterase Negative (Negative) Urine WBC (Auto) 1-5 (0-5) /hpf Urine RBC (Auto) 0-4 (0-4) /hpf U Hyaline Cast (Auto) 1-5 (0-5) /lpf U Epithel Cells (Auto) 5-10 H (0-5) /lpf Urine Bacteria (Auto) Negative (Negative) Digoxin 0.4 L (0.8-2.0) ng/ml SARS-CoV-2 (PCR) NEGATIVE (Negative) Influenza Type A (PCR) Negative (Neg) Influenza Type B (PCR) Negative (Neg) RSV (RT-PCR) Negative (Neg) Imaging Data Radiologist's Impression: Chest X-Ray 11/18/21 11:22 XR chest 1V portable HISTORY: 81 years-old Male illness acute illness COMPARISON: 07/27/2019 TECHNIQUE: AP view of the chest FINDINGS: Cardiac silhouette is enlarged. Left subclavian pacer/AICD. Atherosclerosis of the aorta. No pneumothorax. Trace pleural effusions suspected. Pulmonary vascular congestion. Linear subsegmental bibasilar predominant opacities. Degenerative changes of the shoulders and spine. Loose bodies of the right gl enohumeral joint. IMPRESSION: 1. Cardiomegaly with pulmonary vascular congestion. 2. Trace pleural effusions with mild bibasilar densities suggestive of atelectasis. ACT 112: Negative or not required by law. The above report was generated using voice recognition software. It may contain grammatical, syntax or spelling errors. Electronically signed by: Jd Schaefer M.D. 11/18/2021 1:[address] 11/18/21 13:42 CT head/brain wo con CLINICAL HISTORY: ams Technique: Contiguous axial CT images of the head were acquired from the base of the skull to the vertex without intravenous contrast administration. Images were viewed in brain, subdural and bone windows. Automated dose lowering techniques and/or adjustment according to patient size were utilized for this exam. Comparison: Comparison is made to CTA head 03/10/2017 and MRI brain 03/09/2017 Findings: Areas of decreased attenuation are present in the periventricular and subcortical white matter bilaterally consistent with small vessel ischemic disease. Generalized cerebral atrophy with commensurate enlargement of the ventricles, sulci, and cisterns is also present. There is no acute intracranial hemorrhage or evidence of acute territorial infarction. No shift of the midline structures, mass effect, or extra-axial abnormalities are shown. Ather osclerotic calcifications are present in the intracranial segments of the internal carotid arteries. Prominence of the subarachnoid space is unchanged from prior exam. There is right maxillary sinus disease. The orbits appear normal. There are no acute fractures of the calvaria or scalp swelling. Impression: 1. No acute intracranial hemorrhage, no evidence of acute territorial infarction or other acute intracranial disease process. 2. Right maxillary sinus disease. ACT 112: Negative or not required by law. Electronically signed by: Santhosh Beltran M.D. 11/18/2021 2:28 PM ECG Data Attestation: I personally reviewed and interpreted this ECG as follows: Indication: + SOB/dyspnea Rate (beats per minute): 89 Rhythm: + other ECG Intervals/blocks: + IVCD and + Normal QT ECG [place]: + Normal ECG ST segments: + Nonspecific ST abnormalities Additional Comments: Paced MDM Narrative An order was placed for continuous cardiac monitoring. The monitor shows a rate of _78_ with paced__ rhythm. This is an 81-year-old male presents emergency department due to concern for decreased oral intake, fatigue, and family noted increasing cough and trouble breathing. Patient does admit to intermittent chest pressure and increased shortness of breath with exertion. Patient was afebrile and hemodynamically stable on arrival. Labs started per nursing protocols patient was seen on day of high volume and acuity. Once placed in the patient room, these were reviewed with him at bedside and additional labs added. No pneumonia noted on chest x- ray however patient noted to have a markedly elevated BNP and findings of vascular congestion on chest x-ray, and I suspect patient's cough related to evolving pulmonary edema and not URI. Given increased abdominal work of breathing and conversational tachypnea with accompanying cardiac history and elevated BNP, case discussed with hospitalist for additional evaluation and management. Patient was given a dose of Lasix while in the emergency room. Owen enciso is anticoagulated and INR therapeutic at 2.0. Impression & Plan Dyspnea, Chest pain, Pleural effusion, Elevated brain natriuretic peptide (BNP) level Discharge Plan Visit Data Chief Complaint: Dehydration Stated Complaint: DEHYDRATED, HEART FAILURE, SOB, NOT EATING ED Provider: Martha Ford Discharge Problem: Dyspnea, Chest pain, Pleural effusion, Elevated brain natriuretic peptide (BNP) level Patient Disposition: Admitted As Inpatient Discharge Instructions Interventions: ED Discharge Assessment Last Done: 11/18/21 17:54
--- NOTE | 2021-11-18 14:29 | CT Scan Report ---
CT head/brain wo con CLINICAL HISTORY: ams Technique: Contiguous axial CT images of the head were acquired from the base of the skull to the shelby jose without intravenous contrast administration. Images were viewed in brain, subdural and bone [facility]. Automated dose lowering techniques and/or adjustment according to patient size were utilized for this exam. Comparison: Comparison is made to CTA head 03/10/2017 and MRI brain 03/09/2017 Findings: Areas of decreased attenuation are present in the periventricular and subcortical white matter bilate rally consistent with small vessel ischemic disease. Generalized cerebral atrophy with commensurate e nlargement of the ventricles, sulci, and cisterns is also present. There is no acute intracranial hem orrhage or evidence of acute territorial infarction. No shift of the midline structures, mass effect, or extra-axial abnormalities are shown. Atherosclerotic calcifications are present in the intracran ial segments of the internal carotid arteries. Prominence of the subarachnoid space is unchanged fro m prior exam. There is right maxillary sinus disease. The orbits appear normal. There are no acute fractures of th e calvaria or scalp swelling. Impression: 1. No acute intracranial hemorrhage, no evidence of acute territorial infarction or other acute intr acranial disease process. 2. Right maxillary sinus disease. ACT 112: Negative or not required by law. Electronically signed by: Santhosh Beltran M.D. 11/18/2021 2:28 PM
[2021-11-18 14:56] LABS: Troponin I High Sensitivity 12.5 pg/ml (0-20)
[2021-11-18] MEDS ORDERED: FUROSEMIDE 40 MG/4 ML VIAL IV ONE (15:12)
[2021-11-18 15:49] LABS: Appearance Urine Clear (Clear); Bacteria Urine Automated Negative (Negative); Bilirubin Urine Negative (Negative); Blood Urine 2+ (Negative); Color Urine Yellow; Glucose Urine UA Negative (Negative); Ketones Urine Negative (Negative); Leukocyte Esterase Urine Negative (Negative); Nitrite Urine Negative (Negative); Protein Urine Negative (Negative); RBC Urine Automated 0-4 /hpf (0-4); Specific Gravity Urine 1.008 (1.000-1.030); Urobilinogen Urine Negative (Negative); pH Urine 5.5 (4.5-7.5)
[2021-11-18] MEDS ORDERED: MAGNESIUM HYDROXIDE SUSP 30 ML UDC PO PRN (15:59)
[2021-11-18] MEDS ORDERED: ALUMINUM/MAGNESIUM SUSP 30 ML UDC PO PRN (15:59)
[2021-11-18] MEDS ORDERED: ACETAMINOPHEN 325 MG TAB PO PRN (15:59)
--- NOTE | 2021-11-18 16:22 | History & Physical Report ---
Date of Service November 18, 2021 Assessment & Plan (1) Dyspnea: Plan Chest tightness/Dyspnea on exertion Acute on chronic heart failure with reduced ejection fraction Admitting troponin WNL, admitting EKG with paced rhythm. Patient with no chest pain at bedside. 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 Patient not on any diuresis at home. Labs and imaging reviewed. BNP elevated. Recent echo in October 2021 with EF of 25%. Patient received a dose of IV Lasix, cardiology consult, trend troponin, heart healthy diet with fluid restriction. Labs in AM. c/w iv lasix. Other chronic medical conditions: Coronary artery disease, history of VT status post pacer/defibrillator, nonischemic cardiomyopathy/atrial fibrillation--> continue with/resume home meds as and when appropriate. DVT prophylaxis: On Coumadin Full code, patient's daughter Jasmyne is POA per Patient and his at bedside. 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 Patient describes dyspnea coming with minimal exertion associated with chest tightness radiating to bilateral shoulders. Patient does have decreased appetite for the long time. His recent echo done in October was with ejection fraction of 25%, patient is not on diuresis at home. Per family, patient has increased his fluid intake lately in last week. Patient denies any fever or sore throat or cough or palpitation or belly pain or acute changes in his bowel or bladder habits. Patient denies any facial pain and sinuses were nontender on examination. Patient denies smoking, very rare alcohol use during teenage, denies drug use. Full code per discussion with the patient and family at bedside, power of senior trial attorney is patient's daughter Jasmyne. Medications reviewed with the patient. Allergies Allergy/AdvReac Type Severity Reaction Status Date / Time amoxicillin Allergy Unknown Hives Verified 11/04/21 15:57 Home Medications Medication Instructions Recorded Confirmed Type diphenhydramine HCl 25 mg tablet 50 mg PO HS PRN Allergy Symptoms 07/21/21 11/04/21 History atorvastatin 40 mg tablet (Lipitor) 40 mg PO HS #30 tabs 07/26/21 11/18/21 Rx lisinopril 5 mg tablet (Zestril) 5 mg PO QAM #30 tabs 07/26/21 11/18/21 Rx metoprolol succinate 50 mg 100 mg PO BID #60 tabs 07/26/21 11/18/21 Rx tablet,extended release 24 hr amiodarone 200 mg tablet 200 mg PO HS 10/17/21 11/18/21 History warfarin 1 mg tablet 2 mg PO UD 10/17/21 11/18/21 History finasteride 5 mg tablet (Proscar) 5 mg PO QAM #90 tabs 11/04/21 11/18/21 Rx Past Med/Surg History Medical History Atrial fibrillation, new onset Dx June 2021 > digoxin, Coumadin > follows with Dr. Sim > pacemaker BPH (benign prostatic hyperplasia) CAD (coronary artery disease) Per cardio records- mild nonobstructive CAD (20% ostial LM, 25% mid LAD, ectatic LCX with 20% proximal stenosis and a 30% distal stenosis, 30% mid RCA), normal intracardiac filling pressure. History of COVID-16 Mar 2020 > "never tested", not hospitalized, "bad cold symptoms">resolved. Hx of basal cell carcinoma "Nose, back, chest" Hyperlipidemia Hypertension Nonischemic cardiomyopathy EF 20-30% S/p pacer/ICD placement Pacemaker Pacemaker/ACID. Placed 06/2021 [facility] > Medtronic RBBB Stroke Approx 7 yrs ago > no residual effects, mild stroke per pt > no neuro Ventricular tachycardia Pacemaker/ICD in place Surgical History History of cardiac cath 06/2021 > [facility] > no stents; f/u Dr. Sim History of colonoscopy History of tooth extraction Family History Father Colorectal cancer Social History Smoking Status: Former smoker Second Hand Exposure: No; Hx Alcohol Use: No Hx Substance Use: No Preferred Language: Faroese Communication Ability: Effective Video Game Technician Required: No Beliefs That Will Affect Care: None Current Living Situation: Spouse Feels Safe at Home: Yes Assistive Devices: Denture - Upper Review of Systems Review of Systems: Negative otherwise mentioned in HPI. Physical Exam Physical Exam: GENERAL: Alert and oriented x3. NAD, on RA. HEENT: No pallor, no icterus. Pupils equal, round and reactive to light. Oral mucosa moist. No sinus tenderness. NECK: No JVD, no neck masses. HEART: S1 and S2 heard. No murmur, no gallop. RESPIRATORY SYSTEM: No wheezing, bibasilar crackles. Dyspnea with ongoing conversation. ABDOMEN: Soft, bowel sounds present, nontender, no distention. CENTRAL NERVOUS SYSTEM: No facial droop. Speech is clear. Obeys simple commands. Moves extremities. EXTREMITIES: 1-2+ BLE edema, no erythema seen. Results & Data Results & Data ([facility]) Vital Signs (Past 12 Hours) Vital Signs Temp Pulse Resp BP Pulse Ox O2 Del Method 11/18/21 15:30 19 96 Room Air 11/18/21 15:30 136/103 H 11/18/21 15:00 24 96 Room Air 11/18/21 15:00 126/95 11/18/21 14:30 70 18 95 Room Air 11/18/21 14:30 147/95 H 11/18/21 14:00 70 20 11/18/21 14:00 137/98 11/18/21 13:52 70 19 11/18/21 11:18 36.6 C 78 20 126/83 96 Room Air Code Status & VTE Plan VTE Prophylaxis Plan VTE Prophylaxis will be ordered: Yes
[2021-11-18 16:39] LABS: Influenza A virus by PCR Negative (Neg); Influenza B virus by PCR Negative (Neg); RSV by PCR Negative (Neg); SARS CoV2 RNA(COVID-19) InHosp NEGATIVE (Negative)
[2021-11-18] MEDS ORDERED: WARFARIN SOD 1 MG TAB PO SCH (17:00)
[2021-11-18] MEDS ORDERED: ATORVASTATIN 40 MG TAB PO SCH (21:00)
[2021-11-18] MEDS ORDERED: AMIODARONE 200 MG TAB PO SCH (21:00)
[2021-11-18] MEDS: METOPROLOL SUCC 50MG EXT REL TAB PO SCH (21:17)
[2021-11-19 06:47] LABS: Hematocrit (blood only) 39.9 % (40.1-51.0); Hemoglobin 12.9 g/dl (14.0-18.0); Mean Corpuscular Hgb Conc 32.3 g/dL (32.0-36.0); Mean Corpuscular Volume 95.9 fL (80.0-100.0); Platelet Count 198 K/uL (130-400); RDW Coefficient of Variation 14.4 % (11.5-14.5); RDW Standard Deviation 50.3 fL (36.4-46.3); Red Blood Count 4.16 M/uL (4.63-6.08); White Blood Count 5.74 K/ul (4.8-10.8)
[2021-11-19 06:51] LABS: INR 2.1 (0.9-1.1); Prothrombin Time 21.1 Seconds (9.0-12.0)
[2021-11-19 07:01] LABS: BUN Creatinine Ratio 12.5 (10-20); Calcium 8.8 mg/dl (8.5-10.1); Creatinine Clr Calc Pharmacy 46.7 ml/min; Est GFR (African American) 65.3 ml/min; Est GFR (Non-African American) 56.4 ml/min; Magnesium 1.9 mg/dl (1.7-2.4); Potassium 3.5 mmol/L (3.5-5.1)
--- NOTE | 2021-11-19 08:51 | Electrocardiogram Report ---
Test Reason : Blood Pressure : / mmHG Vent. Rate : 072 BPM Atrial Rate : 060 BPM P-R Int : 176 ms QRS Dur : 140 ms QT Int : 434 ms P-R-T Axes : 000 091 230 degrees QTc Int : 475 ms AV dual-paced rhythm Abnormal ECG When compared with ECG of 18-NOV-2021 12:13, Vent. rate has decreased BY 17 BPM Confirmed by Yovani Guzman ([id number]) on 11/19/2021 8:50:40 AM Referred By: REFERRED SELF Confirmed By:Yovani Guzman
[2021-11-19] MEDS: METOPROLOL SUCC 50MG EXT REL TAB PO SCH (08:55)
[2021-11-19] MEDS ORDERED: lisinopril 5 MG TAB PO SCH (09:00)
[2021-11-19] MEDS ORDERED: FINASTERIDE 5 MG TAB PO SCH (09:00)
[2021-11-19] MEDS ORDERED: FUROSEMIDE INJ 20 MG/2 ML VIAL IV SCH (09:00)
--- NOTE | 2021-11-19 09:35 | Cardiology Consultation ---
Date of Consultation November 19, 2021 Assessment & Plan (1) Acute on chronic heart 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: (2) Nonischemic cardiomyopathy: (3) Paroxysmal atrial fibrillation: (4) Presence of biventricular automatic cardioverter/defibrillator (AICD): Plan Patient admitted for acute on chronic HFrEF exacerbation with worsening SOB, evidence of volume overload. Treated with 2 doses of IV lasix 20 mg. Brisk diuresis overnight and into this morning and resolution of symptoms. We discussed use of diuretic at home to aid with and prevent recurrent CHF exacerbation. He is agreeable. Would likely discharge on furosemide 20 mg - 1 tab 3 days per week and titrate as needed/tolerated. Fluid restriction of about 50-60 ounces per day discussed as well as sodium restriction and daily weights. he will continue all other home cardiac meds on discharge. Stable for discharge later today as long as patient feels well ambulating in hallways this morning. Case discussed with Dr. Sigala. Supervising Physician Co-Signing Physician Notes Patient seen and examined, chart and medications are reviewed. Assessment and plan as outlined above Patient presented with mildly decompensated systolic heart failure with prompt response to IV diuretics now at approaching baseline. Patient desiring to go home which appears reasonable and should be discharged on oral diuretic as noted above Outpatient follow-up as scheduled History of Present Illness Reason for Consultation: SOB; Acute on chronic HFrEF Requesting Physician: Dr. Burt Attending Physician: Dr. Sigala History of Present Illness Patient is an 81 year old male, known to [facility], Dr. Sim for complex history includin. SPIKE guided direct current cardioversion 10/28/2021 2. Admission(07/21/2021 until 07/26/2021)following sustained ventricular tachycardia with resultant syncope, status post cardioversion in the field Atrial fibrillation/flutter with a rapid ventricular response of unknown duration noted on admission; [id number] Score of at least 6 points 3. July 22, 2021 Coronary Angiography ([facility], Dr. Saavedra) with mild nonobstructive CAD (20% ostial LM, 25% mid LAD, ectatic LCX with 20% proximal stenosis and a 30% distal stenosis, 30% mid RCA), normal intracardiac filling pressure. 4. New onset nonischemic cardiomyopathy with NYHA Class II+ CHF, EF 25-30%, right bundle branch block with QRS duration 162 ms (suspect tachycardia induced) 5. Status post biventricular pacemaker defibrillator implantation on 07/25/[address] Rae. 6. Intermittent gross hematuria while on heparin; evaluation by Urology 07/24/2021, with cystoscopy, CT of the abdomen pelvis, findings of enlarged prostate, bladder stone 7. Mildly abnormal TSH 8. Hypertension 9. Dyslipidemia 10. History of CVA, 2017 Several weeks ago, patient had outpatient office visit post SPIKE/cardioversion. Was maintaining NSR with AV sequential pacing. Labs demonstrated mild worsening of his renal function. Digoxin was stopped. Amiodarone was reduced to 200 mg daily. He was encouraged to increase fluid intake slightly. Over the last few days patient reported worsening SOB with activities, orthopnea and PND at night with mild ankle swelling. Due to worsening symptoms, he came to the ER for evaluation. Upon arrival, EKG demonstrated AV paced rhythm, without recurrent afib/flutter. BNP was elevated with chest xray revealing pulm congestion. Troponin HS was unremarkable. He received dose of IV lasix in the ER. He reports significant diuresis and frequent urination overnight. He received second dose this morning, with again brisk diuresis. At time of consult, patient feeling well. Comfortably on room air without hypoxia. Denies chest pain. SOB improved. No orhtopnea, PND last night. Ankle edema also resolved. Ambulating in room without issues or complaints. Requesting to go home today Allergies Allergy/AdvReac Type Severity Reaction Status Date / Time amoxicillin Allergy Unknown Hives Verified 11/18/21 16:39 Home Medications Medication Instructions Recorded Confirmed Type diphenhydramine HCl 25 mg tablet 50 mg PO HS PRN Allergy Symptoms 07/21/21 11/18/21 History atorvastatin 40 mg tablet (Lipitor) 40 mg PO HS #30 tabs 07/26/21 11/18/21 Rx lisinopril 5 mg tablet (Zestril) 5 mg PO QAM #30 tabs 07/26/21 11/18/21 Rx amiodarone 200 mg tablet 200 mg PO HS 10/17/21 11/18/21 History warfarin 1 mg tablet 2 mg PO UD 10/17/21 11/18/21 History finasteride 5 mg tablet (Proscar) 5 mg PO QAM #90 tabs 11/04/21 11/18/21 Rx metoprolol succinate 100 mg 100 mg PO BID 11/18/21 11/18/21 History tablet,extended release 24 hr furosemide 20 mg tablet 20 mg PO Q OTHER DAY #15 tabs 11/19/21 Rx potassium chloride 20 mEq 20 meq PO Q OTHER DAY #15 tabs 11/19/21 Rx tablet,extended release Patient History Medical History Atrial fibrillation, new onset Dx June 2021 > digoxin, Coumadin > follows with Dr. Sim > pacemaker BPH (benign prostatic hyperplasia) CAD (coronary artery disease) Per cardio records- mild nonobstructive CAD (20% ostial LM, 25% mid LAD, ectatic LCX with 20% proximal stenosis and a 30% distal stenosis, 30% mid RCA), normal intracardiac filling pressure. History of COVID-16 Mar 2020 > "never tested", not hospitalized, "bad cold symptoms">resolved. Hx of basal cell carcinoma "Nose, back, chest" Hyperlipidemia Hypertension Nonischemic cardiomyopathy EF 20-30% S/p pacer/ICD placement Pacemaker Pacemaker/ACID. Placed 06/2021 [facility] > Medtronic RBBB Stroke Approx 7 yrs ago > no residual effects, mild stroke per pt > no neuro Ventricular tachycardia Pacemaker/ICD in place Surgical History History of cardiac cath 06/2021 > [facility] > no stents; f/u Dr. Sim History of colonoscopy History of tooth extraction Family History Father Colorectal cancer Social History Smoking Status: Never smoker Second Hand Exposure: No; Hx Alcohol Use: No Hx Substance Use: No Preferred Language: Croatian Communication Ability: Effective Child And Adolescent Therapist Required: No Beliefs That Will Affect Care: None Current Living Situation: Spouse and Family Other Information That Helps Us Care for You: No Feels Safe at Home: Yes Safety Concerns: Feels Safe At This Time Assistive Devices: None Review of Systems Review of Systems: All systems reviewed & are unremarkable except as noted in HPI & below Physical Exam Constitutional: WD/WN, vitals as above Neck: trachea midline, no thyromegaly Respiratory: normal respiratory effort, lungs clear to auscultation Cardiovascular: Rate/Rhythm: regular rate and regular rhythm Heart Sounds: no murmur Vessels: no JVD Extremities: no edema Gastrointestinal (Abdomen): normal bowel sounds, soft, nontender, no hepatosplenomegaly Skin: no rashes, warm and dry Neurologic: PERRL, EOMI, accommodation nl, no face palsy, no dysarthria Psychiatric: A+Ox3, euthymic affect Results & Data ([facility]) Vital Signs (Past 12 Hours) Vital Signs Temp Pulse Pulse Resp BP Pulse Ox O2 Del Method 11/19/21 08:54 36.6 C 71 94/61 L 94 Room Air 11/19/21 03:00 36.7 C 71 15 109/79 93 Room Air 11/19/21 00:15 Room Air 11/19/21 00:11 82 11/18/21 23:12 36.4 C L 82 18 111/87 95 Room Air Laboratory Results Cardiac Enzymes 11/18/21 11/18/21 11/18/21 Range/Units 12:24 14:11 14:11 AST 24 (13-39) U/L Troponin I High Sens 12.5 (0-20) pg/ml B-Natriuretic Peptide 1522 H (0-100) pg/ml 11/18/21 11/19/21 Range/Units 20:12 02:00 AST (13-39) U/L Troponin I High Sens 13.1 12.7 (0-20) pg/ml B-Natriuretic Peptide (0-100) pg/ml Coagulation 11/18/21 11/18/21 11/19/21 Range/Units 12:24 14:11 05:43 PT 20.4 H 21.1 H (9.0-12.0) Seconds APTT 30.6 (21.0-31.0) Seconds B-Natriuretic Peptide 1522 H (0-100) pg/ml CBC 11/18/21 11/19/21 Range/Units 12:24 05:43 WBC 6.51 5.74 (4.8-10.8) K/ul RBC 4.68 4.16 L (4.63-6.08) M/uL Hgb 14.7 12.9 L (14.0-18.0) g/dl Hct 45.4 39.9 L (40.1-51.0) % Plt Count 239 198 (130-400) K/uL Neut # (Auto) 4.99 (1.4-6.5) K/uL Lymph # (Auto) 0.91 L (1.2-3.4) K/uL [place] # (Auto) 0.54 (0.24-0.82) K/uL Eos # (Auto) 0.01 (0-0.50) K/uL Baso # (Auto) 0.03 (0-0.2) K/uL Comprehensive Metabolic Panel 11/18/21 11/19/21 Range/Units 12:24 05:43 Sodium 135 L 138 (136-145) mmol/L Potassium 4.0 3.5 (3.5-5.1) mmol/L Chloride 100 101 (98-107) mmol/L Carbon Dioxide 28 30 (21-32) mmol/L BUN 16 15 (6-23) mg/dl Creatinine 1.22 1.20 (0.6-1.4) mg/dl Glucose 103 H 79 (70-99(Fasting)) mg/dl Calcium 9.2 8.8 (8.5-10.1) mg/dl AST 24 (13-39) U/L ALT 28 (7-52) U/L Alkaline Phosphatase 74 (34-104) U/L Total Protein 6.8 (6.0-8.3) gm/dl Albumin 4.2 (3.4-5.0) gm/dl Intake and Output 11/18/21 11/19/21 11/19/21 22:59 06:59 14:59 Intake Total 100 / 400 300 / 400 Output Total 1250 / 1250 Balance -1150 / -850 300 / -850 Intake: Oral 100 / 400 300 / 400 Output: Urine 1250 / 1250 Other: # Unmeasured Voids 4 10 Weight 73.7 kg 71.4 kg Weight Measurement Method Chair Scale Built in [facility] Diagnostic Findings Telemetry reviewed: AV paced in the 70-80 bpm range. No afib/flutter. Repeat EKG on 11/19/21 reviewed: AV dual-paced rhythm with a ventricular rate of 72 bpm Abnormal ECG When compared with ECG of 18-NOV-2021 12:13, Vent. rate has decreased BY 17 BPM EKG on admission reviewed: AV dual-paced rhythm with a ventricular rate of 89 bpm Abnormal ECG When compared with ECG of 28-OCT-2021 07:43, Vent. rate has increased BY 18 BPM Chest X-Ray 11/18/21 11:22 XR chest 1V portable HISTORY: 81 years-old Male illness acute illness COMPARISON: 07/27/2019 TECHNIQUE: AP view of the chest FINDINGS: Cardiac silhouette is enlarged. Left subclavian pacer/AICD. Atherosclerosis of the aorta. No pneumothorax. Trace pleural effusions suspected. Pulmonary vas cular congestion. Linear subsegmental bibasilar predominant opacities. Degenerative changes of the shoulders and spine. Loose bodies of the right glenohumeral joint. IMPRESSION: 1. Cardiomegaly with pulmonary vascular congestion. 2. Trace pleural effusions with mild bibasilar densities suggestive of atelectasis. ACT 112: Negative or not required by law. The above report was generated using voice recognition software. It may contain grammatical, syntax or spelling errors. Electronically signed by: Jd Schaefer M.D. 11/18/2021 1:[address] 11/18/21 13:42 CT head/brain wo con CLINICAL HISTORY: ams Technique: Contiguous axial CT images of the head were acquired from the base of the skull to the vertex without intravenous contrast administration. Images were viewed in brain, subdural and bone windows. Automated dose lowering techniques and/or adjustment according to patient size were utilized for this exam. Comparison: Comparison is made to CTA head 03/10/2017 and MRI brain 03/09/2017 Findings: Areas of decreased attenuation are present in the periventricular and subcortical white matter bilaterally consistent with small vessel ischemic disease. Generalized cerebral atrophy with commensurate enlargement of the ventricles, sulci, and cisterns is also present. There is no acute intracranial hemorrhage or evidence of acute territorial infarction. No shift of the midline structures, mass effect, or extra-axial abnormalities are shown. Atherosclerotic calcifications are present in the intracranial segments of the internal carotid arteries. Prominence of the subarachnoid space is unchanged from prior exam. There is right maxillary sinus disease. The orbits appear normal. There are no acute fractures of the calvaria or scalp swelling. Impression: 1. No acute intracranial hemorrhage, no evidence of acute territorial infarction or other acute intracranial disease process. 2. Right maxillary sinus disease. ACT 112: Negative or not required by law. Electronically signed by: Santhosh Beltran M.D. 11/18/2021 2:28 PM Outside records: Echo report reviewed from [facility] in September 2021: Interpretation Summary The left ventricular cavity size is mildly enlarged. The qualitative LV ejection fraction is 25-29% (severely reduced). The base posterior wall is akinetic. The remaining left ventricular myocardial wall segments are severely hypokinetic. The left atrium is severely enlarged. Mild aortic valve regurgitation is present. Moderate mitral regurgitation is present. Mild tricuspid regurgitation is present. The estimated pulmonary artery systolic pressure is 49mm Hg. A small (<5 mm) circumferential pericardial effusion is noted. Cardiac tamponade is absent. The proximal ascending thoracic aorta is mildly enlarged. Medications Administered Current Inpatient Medications Acetaminophen (Acetaminophen 325 Mg Tab) 650 mg PO Q4H PRN PRN Reason: Pain or Fever Stop: 12/18/21 15:58 Al Hydrox/Mg Hydrox/Simethicone (Aluminum/Magnesium Susp 30 Ml Udc) 15 ml PO Q4H PRN PRN Reason: Dyspepsia Stop: 12/18/21 15:58 Amiodarone HCl (Amiodarone 200 Mg Tab) 200 mg PO HS XUAN Stop: 12/18/21 20:59 Last Admin: 11/18/21 21:17 Dose: 200 mg Atorvastatin Calcium (Atorvastatin 40 Mg Tab) 40 mg PO HS XUAN Stop: 12/18/21 20:59 Last Admin: 11/18/21 21:16 Dose: 40 mg Finasteride (Finasteride 5 Mg Tab) 5 mg PO QAM XUAN Stop: 12/19/21 08:59 Last Admin: 11/19/21 08:55 Dose: 5 mg Furosemide (Furosemide Inj 20 Mg/2 Ml Vial) 20 mg IV QAM XUAN Stop: 12/19/21 08:59 Last Admin: 11/19/21 08:55 Dose: 20 mg Lisinopril (Lisinopril 5 Mg Tab) 5 mg PO QAM XUAN Stop: 12/19/21 08:59 Last Admin: 11/19/21 08:55 Dose: 5 mg Magnesium Hydroxide (Magnesium Hydroxide Susp 30 Ml Udc) 30 ml PO Q12H PRN PRN Reason: Constipation Stop: 12/18/21 15:58 Metoprolol Succinate (Metoprolol Succ 50mg Ext Rel Tab) 100 mg PO BID [facility] Stop: 12/18/21 20:59 Last Admin: 11/19/21 08:55 Dose: 100 mg Warfarin Sodium (Warfarin Sod 1 Mg Tab) 1 mg PO [email or web address] [facility] Stop: 12/18/21 16:59 Last Admin: 11/18/21 21:15 Dose: 1 mg Warfarin Sodium (Warfarin Sod 0.5 Mg Tab) 0.5 mg PO [email or web address] [facility] Stop: 12/21/21 15:59
[2021-11-19] MEDS ORDERED: POTASSIUM CHLORIDE CRTAB 20 MEQ TABCR PO STA (12:00)
--- NOTE | 2021-11-19 12:29 | Discharge Summary ---
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 Patient describes dyspnea coming with minimal exertion associated with chest tightness radiating to bilateral shoulders. Patient does have decreased appetite for the long time. His recent echo done in October was with ejection fraction of 25%, patient is not on diuresis at home. Per family, patient has increased his fluid intake lately in last week. Patient denies any fever or sore throat or cough or palpitation or belly pain or acute changes in his bowel or bladder habits. Patient denies any facial pain and sinuses were nontender on examination. Patient denies smoking, very rare alcohol use during teenage, denies drug use. Full code per discussion with the patient and family at bedside, power of sports attorney is patient's daughter Jasmyne. Medications reviewed with the patient. Admission Exam Per Admitting Provider GENERAL: Alert and oriented x3. NAD, on RA. HEENT: No pallor, no icterus. Pupils equal, round and reactive to light. Oral mucosa moist. No sinus tenderness. NECK: No JVD, no neck masses. HEART: S1 and S2 heard. No murmur, no gallop. RESPIRATORY SYSTEM: No wheezing, bibasilar crackles. Dyspnea with ongoing conversation. ABDOMEN: Soft, bowel sounds present, nontender, no distention. CENTRAL NERVOUS SYSTEM: No facial droop. Speech is clear. Obeys simple commands. Moves extremities. EXTREMITIES: 1-2+ BLE edema, no erythema seen. Principal Diagnosis Acute on chronic heart failure with reduced ejection fraction Discharge Exam GENERAL: Alert and oriented x3. NAD, on RA. HEENT: No pallor, no icterus. Pupils equal, round and reactive to light. Oral mucosa moist. No sinus tenderness. NECK: No JVD, no neck masses. HEART: S1 and S2 heard. No murmur, no gallop. RESPIRATORY SYSTEM: No wheezing, no crackles, no dyspnea observed w/ conversation ABDOMEN: Soft, bowel sounds present, nontender, no distention. CENTRAL NERVOUS SYSTEM: No facial droop. Speech is clear. Obeys simple commands. Moves extremities. EXTREMITIES: no BLE edema, no erythema seen. Discharge Data Allergies Allergy/AdvReac Type Severity Reaction Status Date / Time amoxicillin Allergy Unknown Hives Verified 11/18/21 16:39 Consultations 11/18/21 15:34 ED Decision to Admit Stat 11/18/21 15:59 Consult Cardiology Routine Ordered Studies 11/18/21 13:42 CT head/brain wo con Stat Hospital Course (1) Dyspnea: Plan Chest tightness/Dyspnea on exertion Acute on chronic heart failure with reduced ejection fraction Admitting troponin WNL, admitting EKG with paced rhythm. Patient with no chest pain at bedside. 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 Patient not on any diuresis at home. Labs and imaging reviewed. BNP elevated. Recent echo in October 2021 with EF of 25%. Troponin trends are normal, patient moving around without shortness of breath or dyspnea, clinically lung crackles and BLE edema has improved, patient reports feeling a lot better. Patient hemodynamically stable. Cardiology evaluated, patient has a scheduled visit with cardiology tomorrow, patient to be discharged on Lasix every other day along with potassium supplementation that goes with Lasix. Pt states he is ready to go home and would like to be discharged. Patient to follow-up with PCP as an outpatient and get blood work CBC and CMP done in a week time, patient to contact PCP office to order the test. Other chronic medical conditions: Coronary artery disease, history of VT status post pacer/defibrillator, nonischemic cardiomyopathy/atrial fibrillation--> continue with/resume home meds as and when appropriate. DVT prophylaxis: On Coumadin Full code, patient's daughter Jasmyne is POA per Patient and his at bedside. Next Patient being discharged home with following instruction at the point of discharge: [Instructions were also communicated to patient's daughter Jasmyne over the phone] Follow-up with your primary care physician within a week time. You have been started on Lasix 20 mg every other day and as needed for increased leg swelling/shortness of breath and increasing weight. Take your weights daily around the same time. If you find yourself taking your Lasix more frequently, you will need to get in touch with your PCP or cardiology for proper adjustment of your medication. Since you are on Lasix, you are being discharged on a small potassium supplementation dose, take potassium supplement on the day when you take Lasix. Skip potassium supplementation on the days when you do not take Lasix. You will need to get your blood work CBC and CMP done in a week time and have the results forwarded to your PCP. You will have to call your PCP office to set up the tests. Follow-up with your cardiology as an outpatient as scheduled. Maintain heart healthy diet, low-sodium diet, fluid restriction of 50 to 60 ounces per day. Take your medications as prescribed. By CMS guidelines, a determination that the admission or continued stay is not medically necessary has been made by a member of the Utilization Review committee and a physician for this hospital stay. Therefore, a Code 44 will be completed and the inpatient admission will be changed to outpatient. Total Time Total Time Spent Total Time Spent (In Minutes): 35 Discharge Plan Discharge Items Patient Disposition: Home - Self-Care Reason For Visit: DYSPNEA ON EXERTION Discharge Diagnosis: Acute on chronic heart failure with reduced ejection fraction Activity: Resume your previous activity Non-emergency contact: Primary Care Provider Call non-emergency contact if: you have any medication questions, your symptoms worsen and your temperature is above 101 Follow-up/Referrals: David Almaraz MD [Primary Care Provider] - Diet: Heart Healthy and Low Sodium (2gm) Fluids: 1500ml (6 cups) Addtl Attending Provider Instructions: Follow-up with your primary care physician within a week time. You have been started on Lasix 20 mg every other day and as needed for increased leg swelling/shortness of breath and increasing weight. Take your weights daily around the same time. If you find yourself taking your Lasix more frequently, you will need to get in touch with your PCP or cardiology for proper adjustment of your medication. Since you are on Lasix, you are being discharged on a small potassium supplementation dose, take potassium supplement on the day when you take Lasix. Skip potassium supplementation on the days when you do not take Lasix. You will need to get your blood work CBC and CMP done in a week time and have the results forwarded to your PCP. You will have to call your PCP office to set up the tests. Follow-up with your cardiology as an outpatient as scheduled. Maintain heart healthy diet, low-sodium diet, fluid restriction of 50 to 60 ounces per day. Take your medications as prescribed. Pending Studies at Discharge: No Stand-Alone Forms: My [facility], Smoking Cessation Medications and DC Order Prescriptions: New furosemide 20 mg tablet 20 mg PO Q OTHER DAY Qty: 15 0RF potassium chloride 20 mEq tablet extended release 20 meq PO Q OTHER DAY Qty: 15 0RF Rx Instructions: take 20 meq tablet on the days when you take lasix. Continued finasteride [Proscar] 5 mg tablet 5 mg PO QAM Qty: 90 3RF diphenhydramine HCl 25 mg Tablet 50 mg PO HS PRN (Reason: Allergy Symptoms) lisinopril [Zestril] 5 mg Tablet 5 mg PO QAM Qty: 30 0RF atorvastatin [Lipitor] 40 mg tablet 40 mg PO HS Qty: 30 0RF warfarin 1 mg Tablet 2 mg PO UD Rx Instructions: 2mg for 5 days, 1mg for 2 days amiodarone 200 mg Tablet 200 mg PO HS metoprolol succinate 100 mg tablet extended release 24 hr 100 mg PO BID Discharge Orders: Discharge Order (Routine); Ordered 11/19/21 Ordered By: Jaylon Burt Admission Data Admit Date/Time: 11/18/21 15:37 Attending Provider: Jaylon Burt Admit Provider: Jaylon Burt Primary Care Provider: David Almaraz Other Providers: Jaylon Burt ; Yogi Sigala
--- NOTE | 2021-11-19 13:36 | Communication Note ---
Date of Service: November 19, 2021 Code 44 attestation: Is an 81-year-old male was admitted with increasing shortness of breath and chest tightness and was noted to have -acute on chronic HFrEF exacerbation with worsening SOB, evidence of volume overload. -Treated with 2 doses of IV lasix 20 mg. He was evaluated by planner chief and appropriate adjustment of the diuretics are made. The patient was felt stable to be discharged with by attending physician. By CMS guidelines, a determination that the admission or continued stay is not medically necessary has been made by a member of the UR committee and a physician for this hospital stay, therefore a Code 44 will be completed and the Inpatient admission will be changed to outpatient. Dr James Mendoza Member UR Committee
[2021-11-21] MEDS ORDERED: WARFARIN SOD 0.5 MG TAB PO SCH (16:00)
== END 2021-11-19 13:20 | disposition home or self-care (01) ==
LOC: ED 10:58 → INTOOBSV 15:37 → EDINP 15:37 → 2E 17:43

== ENCOUNTER 2022-01-21 20:01 | Inpatient (IN) ==
--- NOTE | 2022-01-21 20:44 | Emergency Department Note ---
Impression & Plan Weakness, EMORY (acute kidney injury) ED Provider Note NAME: SUSAN SHEEHAN AGE: 81 SEX: M : 1940 ARRIVES VIA: Walk-In INFORMANT: [Patient][, ] ED PROVIDER(S): [Raj Sharif MD] Chief Complaint: EMORY, weakness, weight loss HPI: Patient presents with concern that his head weight loss of approximately 20 pounds over the last months. The patient has had progressively worsening weakness. The patient was seen in the outpatient setting by primary care doctor had blood work completed along with a chest x-ray was noted to have an elevated white count and acute kidney injury. Patient was also noted to have some blood in the urine. Patient denies any chest pains or shortness of breath. The patient ROS: See HPI for pertinent positives and negatives. A total of 10 systems were reviewed and otherwise negative. Past medical history: See below Surgical history: See below Social history: See below Physical Exam: GENERAL: NAD, [wearing a mask,] non-toxic. EYE EXAM: Normal conjunctiva. PERRL, no anisocoria and EOM's grossly intact w/o pain. NECK: Supple, no nuchal rigidity, no adenopathy, non-tender. No signs of meningismus. FROM of the neck with good chin to chest and neck extension. No stridor. LUNGS: Clear to auscultation. Normal chest wall mechanics. HEART: NSR, no MRG. ABDOMEN: Abdomen soft, non-tender, normo-active bowel sounds, no masses, no rebound or guarding. BACK: No CVA TTP. SKIN: No rashes and no bruising. UPPER EXTREMITIES: Upper extremities are grossly normal. LOWER EXTREMITIES: Grossly normal, no edema. NEURO EXAM: A&O x3, cranial nerves II-XII grossly intact, normal speech, moves all 4 extremities. Differential diagnoses: Infection, dehydration, metabolic abnormality, hypo/hyperglycemia, electrolyte disturbance, anemia, hypoxia, cardiac sources, intracerebral event, toxicologic, neurologic, as well as other pathologies. Course: Patient was seen and evaluated the bedside. Full history physical exam was performed. EKG interpreted by wi AV dual paced rhythm, rate of 70, wide QRS. Imaging Studies: See Below Cardiac monitoring: An order was placed for continuous cardiac monitoring. The monitor shows a rate of 72 with sinus rhythm. MDM: Patient was seen due to concern for weakness and fatigue EMORY. Blood work was completed. Patient was noted to have some mild hypotension so the patient was ordered IV fluids as well as blood cultures lactate and this is Zosyn as a precaution. The patient's blood work showed a white count 15 with a hemoglobin of 14. Platelet count is normal. The patient does have EMORY with a creatinine of 2.1. Patient's Coumadin is therapeutic at 2.1. Patient does have blood in the urine. The patient has no significant abdominal pain but given the patient's EMORY and blood in urine a CT abdomen pelvis was ordered. This was pending at the time of admission. I did speak with the on-call hospitalist Dr. Haq and the patient was admitted to the medicine service. Past Med/Surg History Medical History Atrial fibrillation, new onset Dx June 2021 > digoxin, Coumadin > follows with Dr. Sim > pacemaker BPH (benign prostatic hyperplasia) CAD (coronary artery disease) Per cardio records- mild nonobstructive CAD (20% ostial LM, 25% mid LAD, ectatic LCX with 20% proximal stenosis and a 30% distal stenosis, 30% mid RCA), normal intracardiac filling pressure. History of COVID-16 Mar 2020 > "never tested", not hospitalized, "bad cold symptoms">resolved. Hx of basal cell carcinoma "Nose, back, chest" Hyperlipidemia Hypertension Nonischemic cardiomyopathy EF 20-30% S/p pacer/ICD placement Pacemaker Pacemaker/ACID. Placed 06/2021 [facility] > Medtronic RBBB Stroke Approx 7 yrs ago > no residual effects, mild stroke per pt > no neuro Ventricular tachycardia Pacemaker/ICD in place Surgical History History of cardiac cath 06/2021 > [facility] > no stents; f/u Dr. Sim History of colonoscopy History of tooth extraction Family History Father Colorectal cancer Social History Smoking Status: Never smoker Second Hand Exposure: No; Hx Alcohol Use: No Hx Substance Use: No Preferred Language: Trinidadian Communication Ability: Effective Automobile Rental Clerk Required: No Beliefs That Will Affect Care: None marital status: Current Living Situation: Spouse Other Information That Helps Us Care for You: No Feels Safe at Home: Yes Safety Concerns: Feels Safe At This Time Assistive Devices: None Allergies Allergies Allergy/AdvReac Type Severity Reaction Status Date / Time amoxicillin Allergy Intermediate Hives Verified 01/21/22 21:55 Home Meds Home Medications Medication Instructions Recorded Confirmed amiodarone 200 mg tablet 200 mg PO HS 10/17/21 01/21/22 warfarin 1 mg tablet 1 mg PO USEASDIRECTD 10/17/21 01/22/22 metoprolol succinate 100 mg 100 mg PO BID 11/18/21 01/21/22 tablet,extended release 24 hr escitalopram oxalate 5 mg tablet 5 mg PO DAILY 01/22/22 01/22/22 Previous Rx's Medication Instructions Recorded atorvastatin 40 mg tablet (Lipitor) 40 mg PO HS #30 tabs 07/26/21 lisinopril 5 mg tablet (Zestril) 5 mg PO QAM #30 tabs 07/26/21 finasteride 5 mg tablet (Proscar) 5 mg PO QAM #90 tabs 11/04/21 furosemide 20 mg tablet 20 mg PO Q OTHER DAY #15 tabs 11/19/21 potassium chloride 20 mEq 20 meq PO Q OTHER DAY #15 tabs 11/19/21 tablet,extended release Results & Data (ED) Vital Signs Vital Signs - 24 hr 01/22/22 00:15 01/22/22 00:15 01/22/22 00:30 Pulse Rate 70 Pulse Rate from SpO2 Sensor 70 Respiratory Rate 22 Blood Pressure 95/70 L 107/81 Blood Pressure Mean 78 89 Pulse Oximetry 96 01/22/22 00:30 01/22/22 00:45 01/22/22 00:45 Pulse Rate 71 72 Pulse Rate from SpO2 Sensor 71 72 Respiratory Rate 20 25 H Blood Pressure 113/84 Blood Pressure Mean 93 Pulse Oximetry 97 98 Home Medications Current Medication List: was personally reviewed by me Laboratory Data Attestation: I reviewed the patient's lab results. Result diagrams: 01/22/22 05:22 01/22/22 05:22 Lab Results 01/21/22 01/21/22 01/21/22 Range/Units 20:25 20:25 20:25 WBC 15.81 H (4.8-10.8) K/ul RBC 4.62 L (4.63-6.08) M/uL Hgb 14.5 (14.0-18.0) g/dl Hct 44.1 (40.1-51.0) % MCV 95.5 (80.0-100.0) fL MCH 31.4 (25.0-34.0) pg MCHC 32.9 (32.0-36.0) g/dL RDW Std Deviation 54.7 H (36.4-46.3) fL RDW Coeff of Gertrudis 15.6 H (11.5-14.5) % Plt Count 253 (130-400) K/uL MPV 10.5 (9.4-12.4) fL Immature Gran % (Auto) 1.5 % Neut % (Auto) 84.6 % Lymph % (Auto) 6.3 % Power % (Auto) 7.5 % Eos % (Auto) 0.0 % Baso % (Auto) 0.1 % Neut # (Auto) 13.38 H (1.4-6.5) K/uL Lymph # (Auto) 0.99 L (1.2-3.4) K/uL Power # (Auto) 1.18 H (0.24-0.82) K/uL Eos # (Auto) 0.00 (0-0.50) K/uL Baso # (Auto) 0.02 (0-0.2) K/uL Immature Gran # (Auto) 0.24 H (0.00-0.02) K/uL Sodium 130 L (136-145) mmol/L Potassium 5.0 (3.5-5.1) mmol/L Chloride 97 L (98-107) mmol/L Carbon Dioxide 24 (21-32) mmol/L Anion Gap 9 (3-11) BUN 67 H (6-23) mg/dl Creatinine 2.17 H (0.6-1.4) mg/dl Est Cr Clr Drug Dosing 25.5 ml/min Est GFR ( Amer) 31.9 ml/min Est GFR (Non-Af Amer) 27.5 ml/min BUN/Creatinine Ratio 30.9 H (10-20) Glucose 147 H (70-99(Fasting)) mg/dl Osmolality (280-300) mOsm/kg Lactate (0.4-2.0) mmol/L Calcium 9.5 (8.5-10.1) mg/dl Total Bilirubin 1.5 H (0.2-1.0) mg/dl AST 33 (13-39) U/L ALT 92 H (7-52) U/L Alkaline Phosphatase 62 (34-104) U/L Total Protein 6.9 (6.0-8.3) gm/dl Albumin 4.3 (3.4-5.0) gm/dl Globulin 2.6 (2.5-4.0) gm/dl Albumin/Globulin Ratio 1.7 (0.9-2) Urine Color Dark Yellow Urine Appearance Turbid A (Clear) Urine pH 5.0 (4.5-7.5) Ur Specific [place] 1.020 (1.000-1.030) Urine Protein 1+ H (Negative) Urine Glucose (UA) Negative (Negative) Urine Ketones Trace H (Negative) Urine Blood 3+ H (Negative) Urine Nitrite Negative (Negative) Urine Bilirubin 1+ H (Negative) Urine Urobilinogen Negative (Negative) Ur Leukocyte Esterase Trace H (Negative) Urine WBC (Auto) 5-10 H (0-5) /hpf Urine RBC (Auto) 5-10 H (0-4) /hpf U Hyaline Cast (Auto) 5-10 H (0-5) /lpf U Epithel Cells (Auto) 10-20 H (0-5) /lpf Urine Bacteria (Auto) Negative (Negative) Urine Crystals Not Reportable Other Crystals Talc (None Prsent) Urine Mucus Present A (None Prsent) Urine Osmolality (500-800) mOsm/kg Urine Sodium mmol/L Urine Potassium mmol/L Urine Chloride mmol/L SARS-CoV-2, RNA, NAAT (NEGATIVE) 01/21/22 01/21/22 01/21/22 Range/Units 20:25 21:07 21:25 WBC (4.8-10.8) K/ul RBC (4.63-6.08) M/uL Hgb (14.0-18.0) g/dl Hct (40.1-51.0) % MCV (80.0-100.0) fL MCH (25.0-34.0) pg MCHC (32.0-36.0) g/dL RDW Std Deviation (36.4-46.3) fL RDW Coeff of Gertrudis (11.5-14.5) % Plt Count (130-400) K/uL MPV (9.4-12.4) fL Immature Gran % (Auto) % Neut % (Auto) % Lymph % (Auto) % Power % (Auto) % Eos % (Auto) % Baso % (Auto) % Neut # (Auto) (1.4-6.5) K/uL Lymph # (Auto) (1.2-3.4) K/uL Power # (Auto) (0.24-0.82) K/uL Eos # (Auto) (0-0.50) K/uL Baso # (Auto) (0-0.2) K/uL Immature Gran # (Auto) (0.00-0.02) K/uL Sodium (136-145) mmol/L Potassium (3.5-5.1) mmol/L Chloride (98-107) mmol/L Carbon Dioxide (21-32) mmol/L Anion Gap (3-11) BUN (6-23) mg/dl Creatinine (0.6-1.4) mg/dl Est Cr Clr Drug Dosing ml/min Est GFR ( Amer) ml/min Est GFR (Non-Af Amer) ml/min BUN/Creatinine Ratio (10-20) Glucose (70-99(Fasting)) mg/dl Osmolality 298 (280-300) mOsm/kg Lactate (0.4-2.0) mmol/L Calcium (8.5-10.1) mg/dl Total Bilirubin (0.2-1.0) mg/dl AST (13-39) U/L ALT (7-52) U/L Alkaline Phosphatase (34-104) U/L Total Protein (6.0-8.3) gm/dl Albumin (3.4-5.0) gm/dl Globulin (2.5-4.0) gm/dl Albumin/Globulin Ratio (0.9-2) Urine Color Urine Appearance (Clear) Urine pH (4.5-7.5) Ur Specific Green[place] (1.000-1.030) Urine Protein (Negative) Urine Glucose (UA) (Negative) Urine Ketones (Negative) Urine Blood (Negative) Urine Nitrite (Negative) Urine Bilirubin (Negative) Urine Urobilinogen (Negative) Ur Leukocyte Esterase (Negative) Urine WBC (Auto) (0-5) /hpf Urine RBC (Auto) (0-4) /hpf U Hyaline Cast (Auto) (0-5) /lpf U Epithel Cells (Auto) (0-5) /lpf Urine Bacteria (Auto) (Negative) Urine Crystals Other Crystals (None Prsent) Urine Mucus (None Prsent) Urine Osmolality 517 (500-800) mOsm/kg Urine Sodium mmol/L Urine Potassium mmol/L Urine Chloride mmol/L SARS-CoV-2, RNA, NAAT NEGATIVE (NEGATIVE) 01/21/22 01/21/22 Range/Units 21:25 22:37 WBC (4.8-10.8) K/ul RBC (4.63-6.08) M/uL Hgb (14.0-18.0) g/dl Hct (40.1-51.0) % MCV (80.0-100.0) fL MCH (25.0-34.0) pg MCHC (32.0-36.0) g/dL RDW Std Deviation (36.4-46.3) fL RDW Coeff of Gertrudis (11.5-14.5) % Plt Count (130-400) K/uL MPV (9.4-12.4) fL Immature Gran % (Auto) % Neut % (Auto) % Lymph % (Auto) % Power % (Auto) % Eos % (Auto) % Baso % (Auto) % Neut # (Auto) (1.4-6.5) K/uL Lymph # (Auto) (1.2-3.4) K/uL Power # (Auto) (0.24-0.82) K/uL Eos # (Auto) (0-0.50) K/uL Baso # (Auto) (0-0.2) K/uL Immature Gran # (Auto) (0.00-0.02) K/uL Sodium (136-145) mmol/L Potassium (3.5-5.1) mmol/L Chloride (98-107) mmol/L Carbon Dioxide (21-32) mmol/L Anion Gap (3-11) BUN (6-23) mg/dl Creatinine (0.6-1.4) mg/dl Est Cr Clr Drug Dosing ml/min Est GFR ( Amer) ml/min Est GFR (Non-Af Amer) ml/min BUN/Creatinine Ratio (10-20) Glucose (70-99(Fasting)) mg/dl Osmolality (280-300) mOsm/kg Lactate 1.0 (0.4-2.0) mmol/L Calcium (8.5-10.1) mg/dl Total Bilirubin (0.2-1.0) mg/dl AST (13-39) U/L ALT (7-52) U/L Alkaline Phosphatase (34-104) U/L Total Protein (6.0-8.3) gm/dl Albumin (3.4-5.0) gm/dl Globulin (2.5-4.0) gm/dl Albumin/Globulin Ratio (0.9-2) Urine Color Urine Appearance (Clear) Urine pH (4.5-7.5) Ur Specific [place] (1.000-1.030) Urine Protein (Negative) Urine Glucose (UA) (Negative) Urine Ketones (Negative) Urine Blood (Negative) Urine Nitrite (Negative) Urine Bilirubin (Negative) Urine Urobilinogen (Negative) Ur Leukocyte Esterase (Negative) Urine WBC (Auto) (0-5) /hpf Urine RBC (Auto) (0-4) /hpf U Hyaline Cast (Auto) (0-5) /lpf U Epithel Cells (Auto) (0-5) /lpf Urine Bacteria (Auto) (Negative) Urine Crystals Other Crystals (None Prsent) Urine Mucus (None Prsent) Urine Osmolality (500-800) mOsm/kg Urine Sodium 13 mmol/L Urine Potassium 95.4 mmol/L Urine Chloride < 15 mmol/L SARS-CoV-2, RNA, NAAT (NEGATIVE) Administered Medications Amiodarone HCl (Amiodarone 200 Mg Tab) 200 mg PO HS XUAN Stop: 02/21/22 20:59 Last Admin: 01/22/22 20:04 Dose: 200 mg Documented By: BS Atorvastatin Calcium (Atorvastatin 40 Mg Tab) 40 mg PO HS XUAN Stop: 02/21/22 20:59 Last Admin: 01/22/22 20:03 Dose: 40 mg Documented By: BS Escitalopram Oxalate (Escitalopram Oxalate 10 Mg Tab) 5 mg PO DAILY XUAN Stop: 02/21/22 08:59 Last Admin: 01/22/22 09:20 Dose: 5 mg Documented By: NOEMI Finasteride (Finasteride 5 Mg Tab) 5 mg PO QAM XUAN Stop: 02/21/22 08:59 Last Admin: 01/22/22 09:20 Dose: 5 mg Documented By: NOEMI Ceftriaxone Sodium 2,000 mg/ (Dextrose) 70 mls @ 100 mls/hr IV DAILY XUAN; Protocol Stop: 02/01/22 08:59 Last Infusion: 01/22/22 10:11 Dose: 0 mls/hr Documented By: Admin: 01/22/22 09:21 Dose: 100 mls/hr Documented By: NOEMI Melatonin (Melatonin 3 Mg Tab) 3 mg PO HS PRN PRN Reason: Sleep Stop: 02/21/22 20:10 Last Admin: 01/22/22 20:37 Dose: 3 mg Documented By: ZOILA Pantoprazole Sodium (Pantoprazole 40 Mg Tab) 40 mg PO QAM XUAN Stop: 02/21/22 08:59 Last Admin: 01/22/22 10:35 Dose: 40 mg Documented By: NOEMI Discontinued Medications Sodium Chloride (Nss 1000ml) 500 mls @ 999 mls/hr IV .Q31M ONE Stop: 01/21/22 22:12 Last Infusion: 01/21/22 22:39 Dose: 0 mls/hr Documented By: ZOILA(2) Admin: 01/21/22 21:52 Dose: 999 mls/hr Documented By: BS(2) Sodium Chloride (Nss 1000ml) 1,000 mls @ 999 mls/hr IV .Q1H1M ONE Stop: 01/21/22 23:03 Last Admin: 01/21/22 23:22 Dose: Not Given Documented By: BS(2) Cefepime HCl (Maxipime) 2,000 mg in 20 mls @ 5 mls/min IV NOW STA; Protocol Stop: 01/21/22 22:13 Last Admin: 01/21/22 23:06 Dose: 5 mls/min Documented By: BS(2) Sodium Chloride (Nss 1000ml) 1,000 mls @ 50 mls/hr IV .Q20H XUAN Stop: 01/22/22 23:16 Last Infusion: 01/22/22 08:43 Dose: 0 mls/hr Documented By: Admin: 01/22/22 02:30 Dose: 50 mls/hr Documented By: JYOTI Methylprednisolone 40 mg/ (Syringe) 0.64 mls @ 1.5 mls/min IV ONE ONE Stop: 01/22/22 08:46 Last Admin: 01/22/22 10:35 Dose: 1.5 mls/min Documented By: NOEMI Discharge Plan Visit Data Chief Complaint: Flank Pain Stated Complaint: INFECTION IN KIDNEYS ED Provider: Raj Sharif Discharge Problem: Weakness, EMORY (acute kidney injury) Patient Disposition: Admitted As Inpatient Discharge Instructions Interventions: ED Discharge Assessment Last Done: 01/22/22 02:00
[2022-01-21 20:50] LABS: Appearance Urine Turbid (Clear); Bacteria Urine Automated Negative (Negative); Blood Urine 3+ (Negative); Color Urine Dark Yellow; Glucose Urine UA Negative (Negative); Ketones Urine Trace (Negative); Leukocyte Esterase Urine Trace (Negative); Nitrite Urine Negative (Negative); Protein Urine 1+ (Negative); Urobilinogen Urine Negative (Negative)
[2022-01-21 20:54] LABS: Bilirubin Urine 1+ (Negative)
[2022-01-21 20:57] LABS: Albumin Globulin Ratio 1.7 (0.9-2); Albumin Level 4.3 gm/dl (3.4-5.0); BUN Creatinine Ratio 30.9 (10-20); Bilirubin,Total 1.5 mg/dl (0.2-1.0); Calcium 9.5 mg/dl (8.5-10.1); Creatinine Clr Calc Pharmacy 25.5 ml/min; Est GFR (African American) 31.9 ml/min; Est GFR (Non-African American) 27.5 ml/min; Globulin 2.6 gm/dl (2.5-4.0); Total Protein 6.9 gm/dl (6.0-8.3)
[2022-01-21 21:14] LABS: Basophils # (auto) 0.02 K/uL (0-0.2); Basophils % (auto) 0.1 %; Hematocrit (blood only) 44.1 % (40.1-51.0); Hemoglobin 14.5 g/dl (14.0-18.0); Immature Granulocytes # (auto) 0.24 K/uL (0.00-0.02); Immature Granulocytes % (auto) 1.5 %; Lymphocytes # (auto) 0.99 K/uL (1.2-3.4); Lymphocytes % (auto) 6.3 %; Mean Corpuscular Hemoglobin 31.4 pg (25.0-34.0); Mean Corpuscular Hgb Conc 32.9 g/dL (32.0-36.0); Mean Corpuscular Volume 95.5 fL (80.0-100.0); Mean Platelet Volume 10.5 fL (9.4-12.4); Monocytes # (auto) 1.18 K/uL (0.24-0.82); Monocytes % (auto) 7.5 %; Neutrophils # (auto) 13.38 K/uL (1.4-6.5); Neutrophils % (auto) 84.6 %; Platelet Count 253 K/uL (130-400); RDW Coefficient of Variation 15.6 % (11.5-14.5); RDW Standard Deviation 54.7 fL (36.4-46.3); Red Blood Count 4.62 M/uL (4.63-6.08); White Blood Count 15.81 K/ul (4.8-10.8)
[2022-01-21 21:25] LABS: Mucus Urine Present (None Prsent)
[2022-01-21] MEDS ORDERED: SODIUM CHLORIDE 0.9% 1000ML 500 ML IV ONE (21:42)
[2022-01-21] MEDS ORDERED: SODIUM CHLORIDE 0.9% 1000ML 1,000 ML IV ONE (22:03)
[2022-01-21] MEDS ORDERED: CEFEPIME 2,000 MG/20 ML VIAL IV STA (22:10)
[2022-01-21 22:26] LABS: Urine Chloride < 15 mmol/L; Urine Potassium 95.4 mmol/L; Urine Sodium 13 mmol/L
--- NOTE | 2022-01-22 02:37 | History and Physical Report ---
DATE OF ADMISSION: 01/22/2022. CHIEF COMPLAINT: Weakness, weight loss. HISTORY OF PRESENT ILLNESS: An 81-year-old male with past medical history significant for hyperlipidemia, history of pleural effusion, history of sustained ventricular tachycardia, nonischemic cardiomyopathy, EF of 25%, status post biventricular automatic ICD, history of AFib, chronic systolic CHF, history of nonobstructive CAD, hypertension, right bundle-branch block, constipation, BPH, history of [place] syncope, history of hematuria, history of adjustment disorder. The patient presents with abnormal labs and weakness and weight loss. 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 Daughter is in the room. As per daughter, he is losing weight lately and was recently started on Lexapro as per PCP notes and also as per the patient in the last 2 weeks his appetite is improved, but still losing weight. As per daughter, he lost about 20 pounds in 1 month. Saw his PCP, and outpatient labs showed EMORY with creatinine of 2 and elevated white count and was advised to come to the hospital. The patient, in the ER, blood pressure was soft; after fluids blood pressure is slowly coming up. The patient is micturating a lot. Denies any blood in the urine. Denies any chest pain or shortness of breath, no nausea, no vomiting, no abdominal pain, no headache, no neck pain, no back pain, no cough. Has some runny nose from his allergies. No earaches, no sore throat, no difficulty swallowing. Alert and oriented. Says lately he is feeling very weak and he is having ambulatory dysfunction because of weakness in the legs. ALLERGIES: AMOXICILLIN. PAST MEDICAL HISTORY: As mentioned above. PAST SURGICAL HISTORY: Status post AICD placement. MEDICATIONS: The patient is on amiodarone 200 mg p.o. at bedtime, Lipitor 40 mg p.o. at bedtime, finasteride 5 mg p.o. a.m., Lasix 20 mg p.o. every other day, lisinopril 5 mg p.o. a.m., metoprolol succinate 100 mg p.o. b.i.d., potassium chloride 20 mEq p.o. every other day, warfarin 1 mg as directed as per anticoagulation. Currently warfarin is on hold on 01/09/2022, otherwise he is on 1 mg every Wednesday and 2 mg all other days. FAMILY HISTORY: Significant for brother has aortic aneurysm, atrial fibrillation; mother has heart failure; father has skin cancer; daughter has heart palpitations. SOCIAL HISTORY: , lives with his . Former smoker, smoked 1 pack a day for 20 years. No alcohol use. No drug use. REVIEW OF SYSTEMS: As per HPI. Rest of the review of systems is negative. PHYSICAL EXAMINATION: GENERAL: The patient is old and frail, not in acute distress. VITAL SIGNS: Temperature 36.9, pulse 70, respiratory rate 73, blood pressure 94/72, oxygen 97% on room air. HEENT: Pupils equal, round, and reactive to light. Oral mucosa moist. NECK: No JVD, no neck masses. CARDIOVASCULAR: S1 and S2 heard. Regular rate and rhythm. No murmur, no gallop. RESPIRATORY SYSTEM: Normal AP diameter. No accessory muscle use. No wheezing, no crackles. ABDOMEN: Soft, bowel sounds present, nontender, no distention. CENTRAL NERVOUS SYSTEM: Cranial nerves II through XII grossly intact, nonfocal. EXTREMITIES: No edema, no erythema. LABORATORY DATA: WBC 15.8, hemoglobin 14.5, hematocrit 44.1, platelets 253. Sodium 130, potassium 5, chloride 97, CO2 of 24, BUN 67, creatinine 2.1, serum glucose 147, osmolality 298, lactate 1, calcium 9.5, total bilirubin 1.5, AST 33, ALT 32, alkaline phosphatase 62. Urinalysis, +3 blood, trace leukocyte esterase. SARS-CoV-2 rapid test negative. IMAGING DATA: CT of abdomen and pelvis, preliminary report showed no pericardial effusion. ASSESSMENT AND PLAN: This is an 81-year-old male who presents with ongoing weight loss and weakness and outpatient labs showed acute kidney injury and leukocytosis. 1. Leukocytosis, possible urinary tract infection: Will also follow CT chest. ER started on Rocephin. Follow the cultures. Closely monitor in the hospital. Follow the repeat labs. 2. Acute kidney injury: Probably secondary to above. Holding his Lasix. Holding his lisinopril. Will get gentle fluids. Will monitor his labs. 3. Chronic systolic congestive heart failure: EF of around 25% on echo in October 2021, status post AICD. Holding diuretics. Getting gentle fluids, normal saline 50 mL per hour for 1 liter. Monitor for any volume overload. Holding his lisinopril and metoprolol for hypotension.Possible pericardial effusion. Will follow ct chest. Consulted cardiology. 4. Atrial fibrillation: Continue amiodarone. Holding his metoprolol. Follow the PT/INR. On Coumadin. 5. History of hypertension: Currently, the patient's blood pressure is running soft, getting gentle fluids. Holding his Lasix, lisinopril, metoprolol. Will monitor his blood pressure. 6. Benign prostatic hypertrophy: Continue his finasteride. 7. Mood disorder: On Lexapro. 8. Hyperlipidemia: On statin. 9. History of right bundle-branch block. 10. Failure to Thrive? Losing weight and seems appetite is poor which has been improving lately.Nutrition consult when stable. 11. Deep venous thrombosis prophylaxis: On Coumadin. Follow the PT/INR. DISPOSITION: Admit to Med tele. PT, OT prior to discharge. Social service to help with discharge planning. Level 1 full code only if there is a chance of recovery as per my discussion with the daughter. Job ID: [id number] MTDD
[2022-01-22] MEDS ORDERED: NITROGLYCERIN SL 0.4 MG/TAB TAB SL PRN (03:17)
[2022-01-22] MEDS ORDERED: SODIUM CHLORIDE 0.9% 1000ML 1,000 ML IV SCH (03:17)
[2022-01-22] MEDS ORDERED: POLYETHYLENE (MIRALAX) 17 GM PACK PO PRN (03:17)
[2022-01-22] MEDS ORDERED: ONDANSETRON INJ 2 MG/ML 2 ML VIAL IV PRN (03:17)
[2022-01-22 05:57] LABS: Basophils # (auto) 0.01 K/uL (0-0.2); Basophils % (auto) 0.1 %; Hemoglobin 12.2 g/dl (14.0-18.0); Immature Granulocytes # (auto) 0.17 K/uL (0.00-0.02); Immature Granulocytes % (auto) 1.4 %; Lymphocytes # (auto) 0.81 K/uL (1.2-3.4); Lymphocytes % (auto) 6.8 %; Mean Corpuscular Hemoglobin 31.5 pg (25.0-34.0); Mean Corpuscular Hgb Conc 33.9 g/dL (32.0-36.0); Mean Platelet Volume 10.4 fL (9.4-12.4); Monocytes # (auto) 1.15 K/uL (0.24-0.82); Monocytes % (auto) 9.7 %; Neutrophils # (auto) 9.69 K/uL (1.4-6.5); Platelet Count 191 K/uL (130-400); RDW Coefficient of Variation 15.5 % (11.5-14.5); RDW Standard Deviation 52.5 fL (36.4-46.3); Red Blood Count 3.87 M/uL (4.63-6.08); White Blood Count 11.83 K/ul (4.8-10.8)
[2022-01-22 06:13] LABS: BUN Creatinine Ratio 39.5 (10-20); Calcium 8.6 mg/dl (8.5-10.1); Creatinine Clr Calc Pharmacy 32.5 ml/min; Est GFR (African American) 43.8 ml/min; Est GFR (Non-African American) 37.8 ml/min; Magnesium 2.3 mg/dl (1.7-2.4); Potassium 4.6 mmol/L (3.5-5.1)
[2022-01-22 06:14] LABS: INR 2.2 (0.9-1.1); Partial Thromboplastin Ratio 1.3; Partial Thromboplastin Time 35.4 Seconds (21.0-31.0); Prothrombin Time 22.1 Seconds (9.0-12.0)
--- NOTE | 2022-01-22 07:47 | CT Scan Report ---
ABDOMEN AND PELVIS CT WITHOUT CONTRAST CT DOSE: 299.03 mGy.cm HISTORY: Bilateral flank pain. blood in urine, EMORY TECHNIQUE: Multiaxial CT images of the abdomen and pelvis were performed without contrast. A dose lo wering technique was utilized adhering to the principles of ALARA. COMPARISON STUDY: Abdomen and pelvis CT 07/24/2021. FINDINGS: Bibasilar linear densities consistent with subsegmental atelectasis. The heart is enlarged. Pacemaker wires are noted. Interval development of small bilateral pleural effusions and a moderate pericardial effusion demonstrating a maximal thickness of 2.1 cm. This demonstrates Hounsfield units suggestive of a hemopericardium. The ascending thoracic aorta is not clearly identified on this study . Mild body wall edema. The unenhanced liver, gallbladder, pancreas, spleen, adrenal glands are unrem arkable. No retroperitoneal lymphadenopathy. Calcified plaque within the normal caliber abdominal aor ta. Mild bladder wall thickening which contains a 1 cm stone. This is similar to the prior study. The prostate gland is mildly enlarged. No bowel wall thickening or obstruction. Colonic diverticulosis. Questionable fat stranding within the left lower quadrant adjacent to the proximal sigmoid colon is l ikely due to the patient's diffuse edematous state. An early diverticulitis is considered less likely but not entirely excluded. Clinical correlation recommended to assess for a left lower quadrant pain .. There are few punctate stones within the right kidney. No ureteral stones. No hydronephrosis. Stab le bilateral renal hypodense lesions which are incompletely characterized on this noncontrast study b ut statistically represent cysts. Mild bilateral perinephric edema, unchanged. IMPRESSION: 1. Interval development of a moderate to large pericardial effusion measuring up to 2.1 cm in thickne ss. This is concerning for hemopericardium. Dedicated chest CTA is recommended for further evaluation . 2. Colonic diverticulosis. Questionable fat stranding within the left lower quadrant adjacent to the proximal sigmoid colon is likely due to the patient's diffuse edematous state. An early diverticuliti s is considered less likely but not entirely excluded. Clinical correlation recommended to assess for a left lower quadrant pain. 3. Small bilateral pleural effusions and diffuse body wall edema are noted. 4. Right-sided nephrolithiasis and a bladder stone, unchanged. No ureteral stones. No hydronephrosis. 5. Bladder wall thickening, unchanged. This is likely chronic. 6. This report was called/faxed to the referring physician following dictation. ACT 112: Negative or not required by law. Electronically signed by: Prince Kennedy M.D. 01/22/2022 7:46 AM
--- NOTE | 2022-01-22 07:57 | Cardiology Consultation ---
Date of Consultation January 22, 2022 Assessment & Plan (1) Pericardial effusion: -stat echocardiogram ordered and completed. -preliminary bedside interpretation by the undersigned is that there is a moderate to large sized circumferential pericardial effusion without tamponade. -ongoing severe LV systolic function noted. -COVID screen negative -pt on NS at 50 ml/hr, will hold for now given pleural effusions and total body volume overloaded state -CT suggest hemopericardium, INR 2.2. Hold coumadin. -No indication for pericardiocentesis at present. -Colchicine not utilized per advice of pharmacy due to interaction with amiodarone. -Solumedrol 40 mg IV x 1, the prednisone 20 mg daily, Protonix for GI prophylaxis. -Repeat limited echo on 01/23 (2) Acute on chronic heart 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: -Hold furosemide and metoprolol. (3) Paroxysmal atrial fibrillation: -INR sinus rhythm on telemetry, with AV squential pacing. -EKG ordered -Hold coumadin for concern of hemopericardium -Holding metoprolol for now. (4) Gross hematuria: -h/o gross hematuria in June prior and had cystoscopy -felt to be related to BPH then -Holding coumadin -based on UA, continue Rocephin for possible UTI (5) EMORY (acute kidney injury): -Likely due to hypotension, baseline creatinine 0.8-1.2 -Creatinine 2.17 on admission, 1.67 now. -Holding IV fluids for now as well as furosemide -Supportive care. History of Present Illness Attending Physician: Destiney Mendoza MD History of Present Illness Kilo Musa is an 81 year old male seen in cardiology consultation per the request of Dr Haq for the evaluation of mild hypotension and findings of a moderate to large circumferential pericardial effusion on CT scan with findings suggestive of hemopericardium. Patient complains of recent generalized weakness in his legs. He notes kneeling down recently in [employer] and was not able to get up. Noted ongoing poor appetite and weight loss. Denies worsening shortness of breath or chest pain. At the time of my assessment in room 287-1 he was lying supine and was mentating well and was comfortable. Systolic blood pressure in the 80s to 90s overnight with most recent BP measurement of 103/72 mm Hg. Patient was seen by primary care at [facility] yesterday and lab revealed acute renal insufficiency with a creatine of 2, compared to 1.2 when hospitalized in October. Will a mild elevation in his WBC count. Patient therefore referred to the ED Cardiology History: 1. SPIKE guided direct current cardioversion 10/28/2021 with successful conversion to sinus rhythm 2. Admission(07/21/2021 until 07/26/2021)following sustained ventricular tachycardia with resultant syncope, status post cardioversion in the field Atrial fibrillation/flutter with a rapid ventricular response of unknown duration noted on admission; [id number] Score of at least 6 points 3. July 22, 2021 Coronary Angiography ([facility], Dr. Saavedra) with mild nonobstructive CAD (20% ostial LM, 25% mid LAD, ectatic LCX with 20% proximal stenosis and a 30% distal stenosis, 30% mid RCA), normal intracardiac filling pressure. 4. New onset nonischemic cardiomyopathy with NYHA Class II+ CHF, EF 25-30%, right bundle branch block with QRS duration 162 ms (suspect tachycardia induced) 5. Status post biventricular pacemaker defibrillator implantation on 07/25/[address] Rae. 6. Intermittent gross hematuria while on heparin; evaluation by Urology 07/24/2021, with cystoscopy, CT of the abdomen pelvis, findings of enlarged prostate, bladder stone 7. Mildly abnormal TSH 8. Hypertension 9. Dyslipidemia 10. History of CVA, 2017 Allergies Allergy/AdvReac Type Severity Reaction Status Date / Time amoxicillin Allergy Intermediate Hives Verified 01/21/22 21:55 Home Medications Medication Instructions Recorded Confirmed Type atorvastatin 40 mg tablet (Lipitor) 40 mg PO HS #30 tabs 07/26/21 01/21/22 Rx lisinopril 5 mg tablet (Zestril) 5 mg PO QAM #30 tabs 07/26/21 01/21/22 Rx amiodarone 200 mg tablet 200 mg PO HS 10/17/21 01/21/22 History warfarin 1 mg tablet 1 mg PO USEASDIRECTD 10/17/21 01/22/22 History finasteride 5 mg tablet (Proscar) 5 mg PO QAM #90 tabs 11/04/21 01/21/22 Rx metoprolol succinate 100 mg 100 mg PO BID 11/18/21 01/21/22 History tablet,extended release 24 hr furosemide 20 mg tablet 20 mg PO Q OTHER DAY #15 tabs 11/19/21 01/21/22 Rx potassium chloride 20 mEq 20 meq PO Q OTHER DAY #15 tabs 11/19/21 01/21/22 Rx tablet,extended release escitalopram oxalate 5 mg tablet 5 mg PO DAILY 01/22/22 01/22/22 History Patient History Medical History Atrial fibrillation, new onset Dx June 2021 > digoxin, Coumadin > follows with Dr. Sim > pacemaker BPH (benign prostatic hyperplasia) CAD (coronary artery disease) Per cardio records- mild nonobstructive CAD (20% ostial LM, 25% mid LAD, ectatic LCX with 20% proximal stenosis and a 30% distal stenosis, 30% mid RCA), normal intracardiac filling pressure. History of COVID-16 Mar 2020 > "never tested", not hospitalized, "bad cold symptoms">resolved. Hx of basal cell carcinoma "Nose, back, chest" Hyperlipidemia Hypertension Nonischemic cardiomyopathy EF 20-30% S/p pacer/ICD placement Pacemaker Pacemaker/ACID. Placed 06/2021 [facility] > Medtronic RBBB Stroke Approx 7 yrs ago > no residual effects, mild stroke per pt > no neuro Ventricular tachycardia Pacemaker/ICD in place Surgical History History of cardiac cath History of colonoscopy History of tooth extraction Family History Father Colorectal cancer Social History Smoking Status: Never smoker Second Hand Exposure: No; Hx Alcohol Use: No Hx Substance Use: No Preferred Language: Syriac Communication Ability: Effective Cyber Reverse Engineer Required: No Beliefs That Will Affect Care: None Current Living Situation: Spouse Other Information That Helps Us Care for You: No Feels Safe at Home: Yes Safety Concerns: Feels Safe At This Time Assistive Devices: Denture - Upper Review of Systems Review of Systems: All systems reviewed & are unremarkable except as noted in HPI & below Physical Exam Physical Exam: Temp Pulse Resp BP Pulse Ox O2 Del Method 36.3 C L 75 18 103/72 95 01/22/22 07:27 01/22/22 07:27 01/22/22 07:27 01/22/22 07:27 01/22/22 07:27 01/22/22 07:27 Constitutional: + thin Respiratory: no respiratory distress and no labored breathing Auscultation: + diminished lung sounds (mildly reduced breath sound at the bases ); no crackles, no rales and no rhonchi Cardiovascular: RRR, no murmur, no edema well healed left infraclavicular pocket incision , no ecchymosis Gastrointestinal (Abdomen): normal bowel sounds, soft, nontender, no hepatosplenomegaly Neurologic: PERRL, EOMI, accommodation nl, no face palsy, no dysarthria Results & Data ([facility]) Laboratory Results Cardiac Enzymes 01/21/22 Range/Units 20:25 AST 33 (13-39) U/L Coagulation INR 2.2 01/22/22 Range/Units 05:22 PT 22.1 H (9.0-12.0) Seconds APTT 35.4 H (21.0-31.0) Seconds CBC 01/21/22 01/22/22 Range/Units 20:25 05:22 WBC 15.81 H 11.83 H (4.8-10.8) K/ul RBC 4.62 L 3.87 L (4.63-6.08) M/uL Hgb 14.5 12.2 L (14.0-18.0) g/dl Hct 44.1 36.0 L (40.1-51.0) % Plt Count 253 191 (130-400) K/uL Neut # (Auto) 13.38 H 9.69 H (1.4-6.5) K/uL Lymph # (Auto) 0.99 L 0.81 L (1.2-3.4) K/uL [place] # (Auto) 1.18 H 1.15 H (0.24-0.82) K/uL Eos # (Auto) 0.00 0.00 (0-0.50) K/uL Baso # (Auto) 0.02 0.01 (0-0.2) K/uL Comprehensive Metabolic Panel 01/21/22 01/22/22 Range/Units 20:25 05:22 Sodium 130 L 132 L (136-145) mmol/L Potassium 5.0 4.6 (3.5-5.1) mmol/L Chloride 97 L 103 (98-107) mmol/L Carbon Dioxide 24 24 (21-32) mmol/L BUN 67 H 66 H (6-23) mg/dl Creatinine 2.17 H 1.67 H D (0.6-1.4) mg/dl Glucose 147 H 94 (70-99(Fasting)) mg/dl Calcium 9.5 8.6 (8.5-10.1) mg/dl AST 33 (13-39) U/L ALT 92 H (7-52) U/L Alkaline Phosphatase 62 (34-104) U/L Total Protein 6.9 (6.0-8.3) gm/dl Albumin 4.3 (3.4-5.0) gm/dl Diagnostic Findings Summary of CT of the abdomen and pelvis 01/21/22: 1. Interval development of a moderate to large pericardial effusion measuring up to 2.1 cm in thickness. This is concerning for hemopericardium. Dedicated chest CTA is recommended for further evaluation. 2. Colonic diverticulosis. Questionable fat stranding within the left lower quadrant adjacent to the proximal sigmoid colon is likely due to the patient's diffuse edematous state. An early diverticulitis is considered less likely but not entirely excluded. Clinical correlation recommended to assess for a left lower quadrant pain. 3. Small bilateral pleural effusions and diffuse body wall edema are noted. 4. Right-sided nephrolithiasis and a bladder stone, unchanged. No ureteral stones. No hydronephrosis. 5. Bladder wall thickening, unchanged. This is likely chronic.
[2022-01-22] MEDS ORDERED: methylPREDNISolone 40 MG in SYRINGE 0 ML IV ONE (08:45)
[2022-01-22] MEDS ORDERED: COLCHICINE 0.6 MG TAB PO SCH (09:00)
[2022-01-22] MEDS ORDERED: HEPARIN SOD 5,000 UNIT/0.5 ML VIAL SQ SCH (09:00)
--- NOTE | 2022-01-22 09:16 | CT Scan Report ---
CT chest diagnostic wo con CT DOSE: 279.03 mGy.cm HISTORY: weight loss, pericardial effusion TECHNIQUE: Multiaxial CT images of the chest were performed without contrast. A dose lowering techni que was utilized adhering to the principles of ALARA. COMPARISON: Abdomen and pelvis CT 01/21/2022. FINDINGS: Redemonstration of the moderate to large hemopericardium with a maximal thickness of 2.1 cm . The exact etiology is not clearly identified on this study. A migrated pacemaker lead would be in t he differential diagnosis. The heart remains enlarged. There appears to be mild mass effect along the heart from the pericardial effusion. Mild aneurysmal dilatation of the ascending thoracic aorta donnell uring up to 4.1 cm in diameter. Severe calcified plaque within the coronary arteries. No mediastinal or hilar lymphadenopathy. Small bilateral pleural effusions are again noted. Normal caliber esophagus . Please refer to the prior abdomen and pelvis CT for further evaluation of the abdominal structures. There is mild diffuse body wall edema. Right shoulder joint effusion with multiple intra-articular l oose bodies which is partially visualized. This is likely chronic. The central airways are patent. No pneumothorax. Mild dependent changes/atelectasis noted at the lung bases. There are few punctate nod ular foci within the lung apices. Some of these appear calcified and are of doubtful clinical signifi cance. There is a focal 12 x 5 mm irregular density within the right middle lobe on image 164. IMPRESSION: 1. Redemonstration of a moderate to large hemopericardium. The exact etiology is not identified on th is study. A migrated pacemaker lead would be in the differential diagnosis. 2. The heart remains enlarged. There appears to be mild mass effect along the heart from the pericard ial effusion. 3. Small bilateral pleural effusions. 4. Mild aneurysmal dilatation of the ascending thoracic aorta measuring up to 4.1 cm in diameter. 5. A 12 x 5 mm focal irregular density within the right middle lobe. This could represent a small foc us of inflammatory/infectious change. However, [address] follow-up recommended to ensure stabi lity/resolution. 6. This report was called/faxed to the referring physician following dictation. ACT 112: Negative or not required by law. Electronically signed by: Prince Kennedy M.D. 01/22/2022 9:15 AM
[2022-01-22] MEDS: ESCITALOPRAM OXALATE 10 MG TAB PO SCH (09:20)
[2022-01-22] MEDS: FINASTERIDE 5 MG TAB PO SCH (09:20)
[2022-01-22] MEDS: cefTRIAXone SODIUM 2,000 MG in DEXTROSE 5% 50 ML IV SCH (09:21)
--- NOTE | 2022-01-22 09:41 | Communication Note ---
Date of Service: January 22, 2022 CT chest report noted. Will have device interrogated to check lead impedance. Patient's device has been followed closely as outpatient with no recent adam ggestion of lead problem. i called and updated patient's daughter , Jasmyne, by phone.
[2022-01-22] MEDS: PANTOprazole 40 MG TAB PO SCH (10:35)
--- NOTE | 2022-01-22 13:38 | Hospitalist Progress Note ---
Date of Service January 22, 2022 Assessment & Plan (1) Pericardial effusion: Plan: Admitted with weakness and weight loss and noted to have pericardial effusion on scan Blood pressure remains on the lower side but otherwise hemodynamically stable Appreciate cardiology input and recommendation Echo of the heart showed: There is a large circumferential pericardial effusion with focal fluid collection adjacent to the right ventricular free wall in the right atrium is visualized in the cervix costal view. Fibrinous strands are present. Right heart appears to be small and underfilled without definite tamponade physiology. Inferior vena cava is not plethoric and collapses inappropriately Ongoing severe LV systolic function noted. 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: Plan: Echo showed severe systolic dysfunction with EF of 25% Hold furosemide and metoprolol due to low blood pressure and dehydration with acute on chronic renal impairment (3) Paroxysmal atrial fibrillation: Plan: Remains in sinus rhythm Rate is controlled Metoprolol is on hold due to low blood pressure and CHF Repeat echo EKG requested Hold coumadin for concern of hemopericardium (4) Gross hematuria: Plan: -Noted to have leukocytosis -h/o gross hematuria in June prior and had cystoscopy -felt to be related to BPH then -based on UA, continue Rocephin for possible UTI -Coumadin is on hold due to hematuria (5) EMORY (acute kidney injury): Plan: -Likely due to hypotension, baseline creatinine 0.8-1.2 -Creatinine 2.17 on admission, 1.67 now. -Holding IV fluids for now as well as furosemide -Monitor PRP Mood disorder No acute delirium Continue Lexapro Hyperlipidemia Continue statin DVT prophylaxis We will hold Coumadin for now and will not administer any pharmacologic anticoagulation given hemopericardium CODE STATUS Full Admission and Anticipated Discharge Date Admission Date: January 22, 2022 Subjective 01/22/2022 The patient was seen and examined in medical telemetry unit He was admitted with extreme weakness and tiredness and denies to have any significant symptoms in bed No chest pain, palpitation or shortness of breath No abdominal pain nausea no vomiting and no fever and or chills Review of Systems Review of Systems: All systems reviewed and are unremarkable except as noted below Cardiovascular: Additional Comments: No cardiac symptoms Physical Exam Physical Exam: Lying in bed comfortably Constitutional: + ill appearing and average body habitus Eyes: PERRL, conjunctivae normal, anicteric sclerae ENMT: external ear and nose normal, oropharynx normal Neck: trachea midline, no thyromegaly Respiratory: no respiratory distress Auscultation: lungs clear to auscultation bilaterally and + crackles (Occasional crackles at the bases) Cardiovascular: Rate/Rhythm: regular rate and regular rhythm; not tachycardic Heart Sounds: normal S1 and normal S2; no murmur Extremities: no edema (Trace edema bilaterally) Gastrointestinal (Abdomen): Inspection/Auscultation: normal bowel sounds; abdomen not distended Percussion/Palpation: abdomen soft; abdomen nontender Musculoskeletal: No acute arthritis in any joint Neurologic: Alert, awake and oriented times. No focal sensory or motor deficit appreciated Psychiatric: A+Ox3, euthymic affect Lymphatic: no cervical or axillary lymphadenopathy Results & Data Results & Data ([facility]) Vital Signs (Past 12 Hours) Vital Signs Temp Pulse Pulse Resp BP BP BP 01/22/22 10:48 36.8 C 68 18 102/68 01/22/22 07:27 36.3 C L 75 18 103/72 01/22/22 07:07 70 01/22/22 02:00 36.4 C L 18 97/70 L 01/22/22 01:45 70 19 86/64 L 01/22/22 01:30 70 20 86/65 L Pulse Ox O2 Del Method 01/22/22 10:48 96 Room Air 01/22/22 07:27 95 Room Air 01/22/22 07:07 01/22/22 02:00 97 Room Air 01/22/22 01:45 91 01/22/22 01:30 98 Laboratory Results Short CBC 01/21/22 01/22/22 Range/Units 20:25 05:22 WBC 15.81 H 11.83 H (4.8-10.8) K/ul Hgb 14.5 12.2 L (14.0-18.0) g/dl Hct 44.1 36.0 L (40.1-51.0) % Plt Count 253 191 (130-400) K/uL BMP 01/21/22 01/22/22 20:25 05:22 Sodium 130 L 132 L Potassium 5.0 4.6 Chloride 97 L 103 Carbon Dioxide 24 24 BUN 67 H 66 H Creatinine 2.17 H 1.67 H D Glucose 147 H 94 Calcium 9.5 8.6 Liver Function 01/21/22 Range/Units 20:25 Total Bilirubin 1.5 H (0.2-1.0) mg/dl AST 33 (13-39) U/L ALT 92 H (7-52) U/L Alkaline Phosphatase 62 (34-104) U/L Albumin 4.3 (3.4-5.0) gm/dl Urine 01/21/22 Range/Units 20:25 Urine Color Dark Yellow Urine Appearance Turbid A (Clear) Urine pH 5.0 (4.5-7.5) Ur Specific [place] 1.020 (1.000-1.030) Urine Protein 1+ H (Negative) Urine Glucose (UA) Negative (Negative) Medications Administered Current Inpatient Medications Acetaminophen (Acetaminophen 325 Mg Tab) 650 mg PO Q4H PRN PRN Reason: Pain or Fever Stop: 02/21/22 03:16 Amiodarone HCl (Amiodarone 200 Mg Tab) 200 mg PO HS XUAN Stop: 02/21/22 20:59 Atorvastatin Calcium (Atorvastatin 40 Mg Tab) 40 mg PO HS XUAN Stop: 02/21/22 20:59 Escitalopram Oxalate (Escitalopram Oxalate 10 Mg Tab) 5 mg PO DAILY XUAN Stop: 02/21/22 08:59 Last Admin: 01/22/22 09:20 Dose: 5 mg Finasteride (Finasteride 5 Mg Tab) 5 mg PO QAM XUAN Stop: 02/21/22 08:59 Last Admin: 01/22/22 09:20 Dose: 5 mg Ceftriaxone Sodium 2,000 mg/ (Dextrose) 70 mls @ 100 mls/hr IV DAILY XUAN; Protocol Stop: 02/01/22 08:59 Last Infusion: 01/22/22 10:11 Dose: Infused Nitroglycerin (Nitroglycerin Sl 0.4 Mg/Tab Tab) 0.4 mg SL UD PRN PRN Reason: Chest Pain Stop: 02/21/22 03:16 Ondansetron HCl (Ondansetron Inj 2 Mg/Ml 2 Ml Vial) 4 mg IV Q6H PRN PRN Reason: Nausea Stop: 02/21/22 03:16 Pantoprazole Sodium (Pantoprazole 40 Mg Tab) 40 mg PO QAM [facility] Stop: 02/21/22 08:59 Last Admin: 01/22/22 10:35 Dose: 40 mg Polyethylene Glycol (Polyethylene (Miralax) 17 Gm Pack) 17 gm PO DAILY PRN PRN Reason: Constipation Stop: 02/21/22 03:16 Prednisone (Prednisone 20 Mg Tab) 20 mg PO DAILY [facility] Stop: 02/22/22 08:59
[2022-01-22] MEDS ORDERED: WARFARIN SOD 1 MG TAB PO SCH (16:00)
[2022-01-22] MEDS: ATORVASTATIN 40 MG TAB PO SCH (20:03)
[2022-01-22] MEDS: AMIODARONE 200 MG TAB PO SCH (20:04)
[2022-01-22] MEDS: MELATONIN 3 MG TAB PO PRN (20:37)
[2022-01-23 07:00] LABS: Hematocrit (blood only) 35.2 % (40.1-51.0); Hemoglobin 11.8 g/dl (14.0-18.0); Immature Granulocytes # (auto) 0.09 K/uL (0.00-0.02); Immature Granulocytes % (auto) 0.9 %; Lymphocytes # (auto) 0.52 K/uL (1.2-3.4); Lymphocytes % (auto) 5.1 %; Mean Corpuscular Hemoglobin 31.4 pg (25.0-34.0); Mean Corpuscular Hgb Conc 33.5 g/dL (32.0-36.0); Mean Corpuscular Volume 93.6 fL (80.0-100.0); Monocytes # (auto) 0.74 K/uL (0.24-0.82); Monocytes % (auto) 7.2 %; Neutrophils % (auto) 86.8 %; Platelet Count 155 K/uL (130-400); RDW Coefficient of Variation 15.2 % (11.5-14.5); RDW Standard Deviation 52.2 fL (36.4-46.3); Red Blood Count 3.76 M/uL (4.63-6.08); White Blood Count 10.25 K/ul (4.8-10.8)
[2022-01-23 07:19] LABS: INR 1.9 (0.9-1.1); Prothrombin Time 19.4 Seconds (9.0-12.0)
[2022-01-23 07:23] LABS: Albumin Level 3.4 gm/dl (3.4-5.0); BUN Creatinine Ratio 40.3 (10-20); Bilirubin Direct 0.3 mg/dl (0-0.2); Bilirubin,Total 1.1 mg/dl (0.2-1.0); Calcium 8.5 mg/dl (8.5-10.1); Creatinine Clr Calc Pharmacy 46.7 ml/min; Est GFR (Non-African American) 56.9 ml/min; Magnesium 2.3 mg/dl (1.7-2.4); Potassium 4.7 mmol/L (3.5-5.1); Total Protein 5.6 gm/dl (6.0-8.3)
[2022-01-23] MEDS: predniSONE 20 MG TAB PO SCH (08:53)
[2022-01-23] MEDS: FINASTERIDE 5 MG TAB PO SCH (08:53)
[2022-01-23] MEDS: PANTOprazole 40 MG TAB PO SCH (08:54)
[2022-01-23] MEDS: cefTRIAXone SODIUM 2,000 MG in DEXTROSE 5% 50 ML IV SCH (08:58)
[2022-01-23] MEDS: ESCITALOPRAM OXALATE 10 MG TAB PO SCH (10:37)
--- NOTE | 2022-01-23 11:32 | Cardiology Progress Note ---
Date of Service January 23, 2022 Assessment & Plan (1) Pericardial effusion: Plan: -Repeat limited echo on 01/24 (2) Acute on chronic heart 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: (3) Paroxysmal atrial fibrillation: (4) Gross hematuria: Plan: -h/o gross hematuria in June prior and had cystoscopy -felt to be related to BPH then -Holding coumadin -based on UA, continue Rocephin for possible UTI (5) EMORY (acute kidney injury): Plan: -Likely due to hypotension, baseline creatinine 0.8-1.2 -Creatinine 2.17 on admission, 1.67 now. -Supportive care. Plan 81-year-old male admitted with weakness and fatigue possible urinary complaints with evidence of renal insufficiency. CT scan of chest demonstrated moderate large pericardial effusion. Initial echocardiogram without tamponade. Patient begun on corticosteroids with prednisone. Clinically feels improved this morning blood pressures improved after holding medications No overt bleeding no fevers or chills. Repeat echocardiogram today demonstrates stable to slightly improved pericardial effusion no evidence of tamponade or hemodynamic compromise We will repeat echo in a.m. Continue to hold lisinopril metoprolol, continue amiodarone Warfarin discontinued due to concerns regarding pericardial effusion as well as hematuria with current contraindications to use Admission and Anticipated Discharge Date Admission Date: January 22, 2022 Subjective Patient seen and examined, chart, medications, telemetry reviewed. Patient lying flat in bed comfortable. No shortness of breath no pleuritic pain no chest discomfort. No dizziness or lightheadedness. No hypotension or orthostasis Review of Systems Review of Systems: All systems reviewed & are unremarkable except as noted in Subjective Physical Exam Physical Exam: Temp Pulse Resp BP Pulse Ox O2 Del Method 36.3 C L 75 18 103/72 95 01/22/22 07:27 01/22/22 07:27 01/22/22 07:27 01/22/22 07:27 01/22/22 07:27 01/22/22 07:27 Constitutional: + thin Eyes: PERRL, conjunctivae normal, anicteric sclerae Neck: trachea midline, no thyromegaly Respiratory: no respiratory distress and no labored breathing Auscultation: + diminished lung sounds (mildly reduced breath sound at the bases ); no crackles, no rales and no rhonchi Cardiovascular: RRR, no murmur, no edema Gastrointestinal (Abdomen): normal bowel sounds, soft, nontender, no hepatosplenomegaly Neurologic: PERRL, EOMI, accommodation nl, no face palsy, no dysarthria Results & Data ([facility]) Vital Signs (Past 12 Hours) Vital Signs Temp Pulse Pulse Resp BP Pulse Ox O2 Del Method 01/23/22 10:35 36.6 C 71 18 135/85 95 Room Air 01/23/22 07:56 36.3 C L 71 18 112/73 97 Room Air 01/23/22 07:41 85 01/23/22 04:00 36.3 C L 78 20 106/72 98 Room Air Laboratory Results Laboratory Results - last 24 hr 01/23/22 01/23/22 01/23/22 06:47 06:47 06:47 WBC 10.25 RBC 3.76 L Hgb 11.8 L Hct 35.2 L MCV 93.6 MCH 31.4 MCHC 33.5 RDW Std Deviation 52.2 H RDW Coeff of Gertrudis 15.2 H Plt Count 155 MPV 10.0 Immature Gran % (Auto) 0.9 Neut % (Auto) 86.8 Lymph % (Auto) 5.1 [place] % (Auto) 7.2 Eos % (Auto) 0.0 Baso % (Auto) 0.0 Neut # (Auto) 8.90 H Lymph # (Auto) 0.52 L [place] # (Auto) 0.74 Eos # (Auto) 0.00 Baso # (Auto) 0.00 Immature Gran # (Auto) 0.09 H PT 19.4 H INR 1.9 H Sodium 132 L Potassium 4.7 Chloride 102 Carbon Dioxide 24 Anion Gap 6 BUN 48 H Creatinine 1.19 D Est Cr Clr Drug Dosing 46.7 Est GFR ( Amer) 66.0 Est GFR (Non-Af Amer) 56.9 BUN/Creatinine Ratio 40.3 H Glucose 108 H Calcium 8.5 Magnesium 2.3 Total Bilirubin 1.1 H Direct Bilirubin 0.3 H AST 46 H ALT 105 H Alkaline Phosphatase 47 Total Protein 5.6 L Albumin 3.4
--- NOTE | 2022-01-23 11:45 | Hospitalist Progress Note ---
Date of Service January 23, 2022 Assessment & Plan (1) Pericardial effusion: Plan: Admitted with weakness and weight loss and noted to have pericardial effusion on scan Blood pressure remains on the lower side but otherwise hemodynamically stable Appreciate cardiology input and recommendation Echo of the heart showed: There is a large circumferential pericardial effusion with focal fluid collection adjacent to the right ventricular free wall in the right atrium is visualized in the cervix costal view. Fibrinous strands are present. Right heart appears to be small and underfilled without definite tamponade physiology. Inferior vena cava is not plethoric and collapses inappropriately Ongoing severe LV systolic function noted. CT suggested hemopericardium and Coumadin is on hold No indication of pericardiocentesis Started intravenous Solu-Medrol and then prednisone and Protonix for GI prophylaxis Repeat echo will be done tomorrow-shows minimal improvement of the effusion Remains asymptomatic (2) Acute on chronic heart 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: Plan: Echo showed severe systolic dysfunction with EF of 25% Hold furosemide and metoprolol due to low blood pressure and dehydration with acute on chronic renal impairment No symptoms of fluid overload (3) Paroxysmal atrial fibrillation: Plan: Remains in sinus rhythm Rate is controlled Metoprolol is on hold due to low blood pressure and CHF Repeat echo EKG requested Hold coumadin for concern of hemopericardium Rate is controlled (4) Gross hematuria: Plan: -Noted to have leukocytosis -h/o gross hematuria in June prior and had cystoscopy -felt to be related to BPH then -based on UA, continue Rocephin for possible UTI -Coumadin is on hold due to hematuria -No hematuria (5) EMORY (acute kidney injury): Plan: -Likely due to hypotension, baseline creatinine 0.8-1.2 -Creatinine 2.17 on admission, 1.67 now. -Holding IV fluids for now as well as furosemide -Monitor PRP-kidney function is normalized Mood disorder No acute delirium Continue Lexapro Hyperlipidemia Continue statin DVT prophylaxis We will hold Coumadin for now and will not administer any pharmacologic anticoagulation given hemopericardium INR is 1.9 Coumadin remains on hold CODE STATUS Full Admission and Anticipated Discharge Date Admission Date: January 22, 2022 Subjective 01/22/2022 The patient was seen and examined in medical telemetry unit He was admitted with extreme weakness and tiredness and denies to have any significant symptoms in bed No chest pain, palpitation or shortness of breath No abdominal pain nausea no vomiting and no fever and or chills 01/23/2022 The patient was seen and examined in medical telemetry unit He has had a fall at the bedside without any loss of consciousness He tender over to brass pickler something and while in the process of standing he fell Injured right thumb, left elbow and left eyebrow on the left side Denies any other significant symptoms Will observe Review of Systems Review of Systems: All systems reviewed and are unremarkable except as noted below Cardiovascular: Additional Comments: No cardiac symptoms Physical Exam Physical Exam: Lying in bed comfortably Constitutional: + ill appearing and average body habitus Eyes: PERRL, conjunctivae normal, anicteric sclerae ENMT: external ear and nose normal, oropharynx normal Neck: trachea midline, no thyromegaly Respiratory: no respiratory distress Auscultation: lungs clear to auscultation bilaterally and + crackles (Occasional crackles at the bases) Cardiovascular: Rate/Rhythm: regular rate and regular rhythm; not tachycardic Heart Sounds: normal S1 and normal S2; no murmur Extremities: no edema (Trace edema bilaterally) Gastrointestinal (Abdomen): Inspection/Auscultation: normal bowel sounds; abdomen not distended Percussion/Palpation: abdomen soft; abdomen nontender Musculoskeletal: No acute arthritis in any joint Psychiatric: A+Ox3, euthymic affect Alert, awake and oriented x3. Generally weak but no focal sensory or no motor deficit appreciated Lymphatic: no cervical or axillary lymphadenopathy Results & Data Results & Data ([facility]) Vital Signs (Past 12 Hours) Vital Signs Temp Pulse Pulse Resp BP BP Pulse Ox 01/23/22 11:37 36.8 C 70 18 130/81 95 01/23/22 10:35 36.6 C 71 18 135/85 95 01/23/22 07:56 36.3 C L 71 18 112/73 97 01/23/22 07:41 85 01/23/22 04:00 36.3 C L 78 20 106/72 98 O2 Del Method 01/23/22 11:37 Room Air 01/23/22 10:35 Room Air 01/23/22 07:56 Room Air 01/23/22 07:41 01/23/22 04:00 Room Air Laboratory Results Short CBC 01/23/22 Range/Units 06:47 WBC 10.25 (4.8-10.8) K/ul Hgb 11.8 L (14.0-18.0) g/dl Hct 35.2 L (40.1-51.0) % Plt Count 155 (130-400) K/uL BMP 01/23/22 06:47 Sodium 132 L Potassium 4.7 Chloride 102 Carbon Dioxide 24 BUN 48 H Creatinine 1.19 D Glucose 108 H Calcium 8.5 Liver Function 01/23/22 Range/Units 06:47 Total Bilirubin 1.1 H (0.2-1.0) mg/dl Direct Bilirubin 0.3 H (0-0.2) mg/dl AST 46 H (13-39) U/L ALT 105 H (7-52) U/L Alkaline Phosphatase 47 (34-104) U/L Albumin 3.4 (3.4-5.0) gm/dl Medications Administered Current Inpatient Medications Acetaminophen (Acetaminophen 325 Mg Tab) 650 mg PO Q4H PRN PRN Reason: Pain or Fever Stop: 02/21/22 03:16 Amiodarone HCl (Amiodarone 200 Mg Tab) 200 mg PO HS XUAN Stop: 02/21/22 20:59 Last Admin: 01/22/22 20:04 Dose: 200 mg Atorvastatin Calcium (Atorvastatin 40 Mg Tab) 40 mg PO HS XUAN Stop: 02/21/22 20:59 Last Admin: 01/22/22 20:03 Dose: 40 mg Escitalopram Oxalate (Escitalopram Oxalate 10 Mg Tab) 5 mg PO DAILY XUAN Stop: 02/21/22 08:59 Last Admin: 01/23/22 10:37 Dose: 5 mg Finasteride (Finasteride 5 Mg Tab) 5 mg PO QAM [facility]AN Stop: 02/21/22 08:59 Last Admin: 01/23/22 08:53 Dose: 5 mg Ceftriaxone Sodium 2,000 mg/ (Dextrose) 70 mls @ 100 mls/hr IV DAILY XUAN; Protocol Stop: 02/01/22 08:59 Last Infusion: 01/23/22 09:39 Dose: Infused Melatonin (Melatonin 3 Mg Tab) 3 mg PO HS PRN PRN Reason: Sleep Stop: 02/21/22 20:10 Last Admin: 01/22/22 20:37 Dose: 3 mg Nitroglycerin (Nitroglycerin Sl 0.4 Mg/Tab Tab) 0.4 mg SL UD PRN PRN Reason: Chest Pain Stop: 02/21/22 03:16 Ondansetron HCl (Ondansetron Inj 2 Mg/Ml 2 Ml Vial) 4 mg IV Q6H PRN PRN Reason: Nausea Stop: 02/21/22 03:16 Pantoprazole Sodium (Pantoprazole 40 Mg Tab) 40 mg PO QAM [facility] Stop: 02/21/22 08:59 Last Admin: 01/23/22 08:54 Dose: 40 mg Polyethylene Glycol (Polyethylene (Miralax) 17 Gm Pack) 17 gm PO DAILY PRN PRN Reason: Constipation Stop: 02/21/22 03:16 Prednisone (Prednisone 20 Mg Tab) 20 mg PO DAILY [facility] Stop: 02/22/22 08:59 Last Admin: 01/23/22 08:53 Dose: 20 mg
[2022-01-23] MEDS: ACETAMINOPHEN 325 MG TAB PO PRN ×2 (14:19→19:56)
[2022-01-23] MEDS ORDERED: WARFARIN SOD 2 MG TAB PO SCH (16:00)
[2022-01-23] MEDS: AMIODARONE 200 MG TAB PO SCH (20:01)
[2022-01-23] MEDS: ATORVASTATIN 40 MG TAB PO SCH (20:01)
[2022-01-23] MEDS: MELATONIN 3 MG TAB PO PRN (20:01)
--- NOTE | 2022-01-24 05:50 | Electrocardiogram Report ---
Test Reason : Blood Pressure : / mmHG Vent. Rate : 070 BPM Atrial Rate : 070 BPM P-R Int : 116 ms QRS Dur : 134 ms QT Int : 404 ms P-R-T Axes : 086 077 261 degrees QTc Int : 436 ms AV dual-paced rhythm Abnormal ECG When compared with ECG of 19-NOV-2021 06:12, Vent. rate has decreased BY 2 BPM Confirmed by Guillermo Torres ([id number] on 01/24/2022 5:50:04 AM Referred By: Cee Pope Confirmed By:Guillermo Torres
[2022-01-24 06:36] LABS: INR 1.7 (0.9-1.1); Prothrombin Time 17.6 Seconds (9.0-12.0)
--- NOTE | 2022-01-24 08:00 | Cardiology Progress Note ---
Date of Service January 24, 2022 Assessment & Plan (1) Pericardial effusion: Plan: -Repeat limited echo on 01/25 (2) Acute on chronic heart 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: (3) Paroxysmal atrial fibrillation: (4) Gross hematuria: Plan: -h/o gross hematuria in June prior and had cystoscopy -felt to be related to BPH then -Holding coumadin -based on UA, continue Rocephin for possible UTI (5) EMORY (acute kidney injury): Plan: -Likely due to hypotension, baseline creatinine 0.8-1.2 -Creatinine 2.17 on admission, 1.67 now. -Supportive care. Plan 81-year-old male admitted with weakness and fatigue possible urinary complaints with evidence of renal insufficiency. CT scan of chest demonstrated moderate large pericardial effusion. Initial echocardiogram without tamponade. Patient begun on corticosteroids with prednisone. Clinically feels improved this morning blood pressures improved after holding medications No overt bleeding no fevers or chills. No further dysuria hematuria 01/24/2022 Event of last evening noted with loss of balance and fall when bending over. No syncope or near syncope. Exam today without evidence of pulsus paradoxus blood pressure is good and hemodynamically stable. No orthostasis We will repeat echocardiogram limited in a.m. Continue all current therapies with plans to continue to hold warfarin Admission and Anticipated Discharge Date Admission Date: January 22, 2022 Subjective Patient was seen and examined, chart, medications, telemetry reviewed. Patient notes last evening bending over after using the bathroom and losing balance falling striking elbow and head no loss of consciousness no dizziness or lightheadedness no chest pains or discomfort. Blood pressures have been well controlled. No dyspnea. No further hematuria. Review of Systems Review of Systems: All systems reviewed & are unremarkable except as noted in Subjective Physical Exam Physical Exam: Temp Pulse Resp BP Pulse Ox O2 Del Method 36.3 C L 75 18 103/72 95 01/22/22 07:27 01/22/22 07:27 01/22/22 07:27 01/22/22 07:27 01/22/22 07:27 01/22/22 07:27 Constitutional: WD/WN, vitals as above (No pulsus paradoxus) + thin Eyes: PERRL, conjunctivae normal, anicteric sclerae ENMT: Bandage contusion left orbit with surrounding ecchymosis Neck: trachea midline, no thyromegaly Respiratory: no respiratory distress and no labored breathing Auscultation: + diminished lung sounds (mildly reduced breath sound at the bases ); no crackles, no rales and no rhonchi Cardiovascular: RRR, no murmur, no edema Vessels: normal carotid upstroke; no JVD Extremities: no edema Gastrointestinal (Abdomen): normal bowel sounds, soft, nontender, no hepatosplenomegaly Musculoskeletal: no cyanosis or clubbing, extremities motor strength 5/5 Neurologic: PERRL, EOMI, accommodation nl, no face palsy, no dysarthria Results & Data ([facility]) Vital Signs (Past 12 Hours) Vital Signs Temp Pulse Pulse Resp BP Pulse Ox Pulse Ox 01/24/22 03:00 95 01/24/22 04:30 36.8 C 64 20 129/85 96 01/23/22 22:07 73 01/23/22 22:44 36.9 C 78 20 103/66 96 O2 Del Method O2 Del Method 01/24/22 03:00 Nasal Cannula 01/24/22 04:30 Room Air 01/23/22 22:07 01/23/22 22:44 Room Air Laboratory Results Laboratory Results - last 24 hr 01/24/22 05:41 PT 17.6 H INR 1.7 H
[2022-01-24] MEDS: PANTOprazole 40 MG TAB PO SCH (08:15)
[2022-01-24] MEDS: FINASTERIDE 5 MG TAB PO SCH (08:15)
[2022-01-24] MEDS: ESCITALOPRAM OXALATE 10 MG TAB PO SCH (08:15)
[2022-01-24] MEDS: predniSONE 20 MG TAB PO SCH (08:15)
[2022-01-24] MEDS: cefTRIAXone SODIUM 2,000 MG in DEXTROSE 5% 50 ML IV SCH (08:16)
--- NOTE | 2022-01-24 11:46 | Hospitalist Progress Note ---
Date of Service January 24, 2022 Assessment & Plan (1) Pericardial effusion: Plan: Admitted with weakness and weight loss and noted to have pericardial effusion on scan Blood pressure remains on the lower side but otherwise hemodynamically stable Appreciate cardiology input and recommendation Echo of the heart showed: There is a large circumferential pericardial effusion with focal fluid collection adjacent to the right ventricular free wall in the right atrium is visualized in the cervix costal view. Fibrinous strands are present. Right heart appears to be small and underfilled without definite tamponade physiology. Inferior vena cava is not plethoric and collapses inappropriately Ongoing severe LV systolic function noted. 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: Plan: Echo showed severe systolic dysfunction with EF of 25% Hold furosemide and metoprolol due to low blood pressure and dehydration with acute on chronic renal impairment No symptoms of fluid overload (3) Paroxysmal atrial fibrillation: Plan: Remains in sinus rhythm Rate is controlled Metoprolol is on hold due to low blood pressure and CHF Repeat echo EKG requested Hold coumadin for concern of hemopericardium Rate is controlled (4) Gross hematuria: Plan: -Noted to have leukocytosis -h/o gross hematuria in June prior and had cystoscopy -felt to be related to BPH then -based on UA, continue Rocephin for possible UTI -Coumadin is on hold due to hematuria -No hematuria (5) EMORY (acute kidney injury): Plan: -Chronic kidney disease, stage 2-3 -Likely due to hypotension, baseline creatinine 0.8-1.2 -Creatinine 2.17 on admission, 1.67 now. -Holding IV fluids for now as well as furosemide -Monitor PRP-kidney function is normalized Mood disorder No acute delirium Continue Lexapro Hyperlipidemia Continue statin DVT prophylaxis We will hold Coumadin for now and will not administer any pharmacologic anticoagulation given hemopericardium INR is 1.9 Coumadin remains on hold. INR is 1.7 as of 01/24/2022 CODE STATUS Full Admission and Anticipated Discharge Date Admission Date: January 22, 2022 Subjective 01/22/2022 The patient was seen and examined in medical telemetry unit He was admitted with extreme weakness and tiredness and denies to have any significant symptoms in bed No chest pain, palpitation or shortness of breath No abdominal pain nausea no vomiting and no fever and or chills 01/23/2022 The patient was seen and examined in medical telemetry unit He has had a fall at the bedside without any loss of consciousness He tender over to citrus picker something and while in the process of standing he fell Injured right thumb, left elbow and left eyebrow on the left side Denies any other significant symptoms Will observe 01/24/2022 The patient was seen and examined in medical telemetry unit He remained stable and denies any significant symptoms Left shoulder wound is still oozing blood Review of Systems Review of Systems: All systems reviewed and are unremarkable except as noted below Cardiovascular: Additional Comments: No cardiac symptoms Physical Exam Physical Exam: Lying in bed comfortably Constitutional: + ill appearing and average body habitus Eyes: PERRL, conjunctivae normal, anicteric sclerae ENMT: external ear and nose normal, oropharynx normal Neck: trachea midline, no thyromegaly Respiratory: no respiratory distress Auscultation: lungs clear to auscultation bilaterally and + crackles (Occasional crackles at the bases) Cardiovascular: Rate/Rhythm: regular rate and regular rhythm; not tachycardic Heart Sounds: normal S1 and normal S2; no murmur Extremities: no edema (Trace edema bilaterally) Gastrointestinal (Abdomen): Inspection/Auscultation: normal bowel sounds; abdomen not distended Percussion/Palpation: abdomen soft; abdomen nontender Musculoskeletal: No acute arthritis in any joint Neurologic: normal touch/pain/proprioception and moves all extremities; no focal motor deficits Psychiatric: A+Ox3, euthymic affect Lymphatic: no cervical or axillary lymphadenopathy Results & Data Results & Data ([facility]) Vital Signs (Past 12 Hours) Vital Signs Temp Pulse Pulse Resp BP Pulse Ox Pulse Ox 01/24/22 11:00 01/24/22 07:00 70 01/24/22 08:17 36.3 C L 71 16 133/82 97 01/24/22 03:00 95 01/24/22 04:30 36.8 C 64 20 129/85 96 O2 Del Method O2 Del Method 01/24/22 11:00 Room Air 01/24/22 07:00 01/24/22 08:17 Room Air 01/24/22 03:00 Nasal Cannula 01/24/22 04:30 Room Air Medications Administered Current Inpatient Medications Acetaminophen (Acetaminophen 325 Mg Tab) 650 mg PO Q4H PRN PRN Reason: Pain or Fever Stop: 02/21/22 03:16 Last Admin: 01/23/22 19:56 Dose: 650 mg Amiodarone HCl (Amiodarone 200 Mg Tab) 200 mg PO HS XUAN Stop: 02/21/22 20:59 Last Admin: 01/23/22 20:01 Dose: 200 mg Atorvastatin Calcium (Atorvastatin 40 Mg Tab) 40 mg PO HS XUAN Stop: 02/21/22 20:59 Last Admin: 01/23/22 20:01 Dose: 40 mg Escitalopram Oxalate (Escitalopram Oxalate 10 Mg Tab) 5 mg PO DAILY [facility] Stop: 02/21/22 08:59 Last Admin: 01/24/22 08:15 Dose: 5 mg Finasteride (Finasteride 5 Mg Tab) 5 mg PO QAM [facility] Stop: 02/21/22 08:59 Last Admin: 01/24/22 08:15 Dose: 5 mg Ceftriaxone Sodium 2,000 mg/ (Dextrose) 70 mls @ 100 mls/hr IV DAILY XUAN; Protocol Stop: 02/01/22 08:59 Last Infusion: 01/24/22 09:39 Dose: Infused Melatonin (Melatonin 3 Mg Tab) 3 mg PO HS PRN PRN Reason: Sleep Stop: 02/21/22 20:10 Last Admin: 01/23/22 20:01 Dose: 3 mg Nitroglycerin (Nitroglycerin Sl 0.4 Mg/Tab Tab) 0.4 mg SL UD PRN PRN Reason: Chest Pain Stop: 02/21/22 03:16 Ondansetron HCl (Ondansetron Inj 2 Mg/Ml 2 Ml Vial) 4 mg IV Q6H PRN PRN Reason: Nausea Stop: 02/21/22 03:16 Pantoprazole Sodium (Pantoprazole 40 Mg Tab) 40 mg PO QAM [facility] Stop: 02/21/22 08:59 Last Admin: 01/24/22 08:15 Dose: 40 mg Polyethylene Glycol (Polyethylene (Miralax) 17 Gm Pack) 17 gm PO DAILY PRN PRN Reason: Constipation Stop: 02/21/22 03:16 Prednisone (Prednisone 20 Mg Tab) 20 mg PO DAILY XUAN Stop: 02/22/22 08:59 Last Admin: 01/24/22 08:15 Dose: 20 mg
[2022-01-24] MEDS: ACETAMINOPHEN 325 MG TAB PO PRN ×2 (13:23→20:07)
[2022-01-24] MEDS: AMIODARONE 200 MG TAB PO SCH (20:05)
[2022-01-24] MEDS: ATORVASTATIN 40 MG TAB PO SCH (20:05)
[2022-01-25 06:13] LABS: Hematocrit (blood only) 35.3 % (40.1-51.0); Hemoglobin 11.8 g/dl (14.0-18.0); Immature Granulocytes # (auto) 0.11 K/uL (0.00-0.02); Immature Granulocytes % (auto) 1.2 %; Lymphocytes # (auto) 0.53 K/uL (1.2-3.4); Lymphocytes % (auto) 5.9 %; Mean Corpuscular Hemoglobin 31.6 pg (25.0-34.0); Mean Corpuscular Hgb Conc 33.4 g/dL (32.0-36.0); Mean Corpuscular Volume 94.4 fL (80.0-100.0); Mean Platelet Volume 10.2 fL (9.4-12.4); Monocytes # (auto) 0.75 K/uL (0.24-0.82); Monocytes % (auto) 8.4 %; Neutrophils # (auto) 7.59 K/uL (1.4-6.5); Neutrophils % (auto) 84.5 %; Platelet Count 161 K/uL (130-400); RDW Coefficient of Variation 14.8 % (11.5-14.5); RDW Standard Deviation 51.4 fL (36.4-46.3); Red Blood Count 3.74 M/uL (4.63-6.08); White Blood Count 8.98 K/ul (4.8-10.8)
[2022-01-25 06:23] LABS: INR 1.5 (0.9-1.1); Prothrombin Time 15.3 Seconds (9.0-12.0)
[2022-01-25 06:42] LABS: BUN Creatinine Ratio 31.9 (10-20); Calcium 8.1 mg/dl (8.5-10.1); Creatinine Clr Calc Pharmacy 57.6 ml/min; Est GFR (African American) 87.8 ml/min; Est GFR (Non-African American) 75.7 ml/min; Potassium 4.1 mmol/L (3.5-5.1)
[2022-01-25] MEDS: cefTRIAXone SODIUM 2,000 MG in DEXTROSE 5% 50 ML IV SCH (08:06)
[2022-01-25] MEDS: ESCITALOPRAM OXALATE 10 MG TAB PO SCH (08:07)
[2022-01-25] MEDS: FINASTERIDE 5 MG TAB PO SCH (08:07)
[2022-01-25] MEDS: PANTOprazole 40 MG TAB PO SCH (08:07)
[2022-01-25] MEDS: predniSONE 20 MG TAB PO SCH (08:07)
--- NOTE | 2022-01-25 12:04 | Cardiology Progress Note ---
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 CT scan of chest demonstrated moderate large pericardial effusion. Initial echocardiogram without tamponade. Patient begun on corticosteroids with prednisone. Clinically feels improved this morning blood pressures improved after holding medications No overt bleeding no fevers or chills. No further dysuria hematuria 01/25/2022 Patient without complaints slowly improving. Echocardiogram on preliminary review demonstrates similar findings the past 2 with moderately large pericardial effusion with mild RV compression. Mild fibrinous organization. No overt tamponade pulses paradoxus negative. Hemodynamically improved Discussed with patient and daughter Plan to repeat echocardiogram in a.m. Continue to hold warfarin On review we will discuss possible pericardial drainage versus medical management with close outpatient follow in a.m. N.p.o. after midnight until reviewed Admission and Anticipated Discharge Date Admission Date: January 22, 2022 Subjective Patient seen and examined, chart, medications, telemetry reviewed No dizziness lightheadedness or chest pain. No shortness of breath. Up in room no further falls or injuries. Denies any dysuria hematuria. Telemetry without arrhythmia Review of Systems Review of Systems: All systems reviewed & are unremarkable except as noted in Subjective Physical Exam Physical Exam: Temp Pulse Resp BP Pulse Ox O2 Del Method 36.3 C L 75 18 103/72 95 01/22/22 07:27 01/22/22 07:27 01/22/22 07:27 01/22/22 07:27 01/22/22 07:27 01/22/22 07:27 Constitutional: WD/WN, vitals as above (No pulsus paradoxus) + thin Eyes: PERRL, conjunctivae normal, anicteric sclerae ENMT: Left periorbital abrasion healing Neck: trachea midline, no thyromegaly Respiratory: no respiratory distress and no labored breathing Auscultation: + diminished lung sounds (mildly reduced breath sound at the bases ); no crackles, no rales and no rhonchi Cardiovascular: RRR, no murmur, no edema Vessels: normal carotid upstroke; no JVD Extremities: no edema No pulses paradoxus of significance (4mmHg) Chest (Breasts): Chest: + pacemaker Gastrointestinal (Abdomen): normal bowel sounds, soft, nontender, no hepatosplenomegaly Musculoskeletal: no cyanosis or clubbing, extremities motor strength 5/5 Neurologic: PERRL, EOMI, accommodation nl, no face palsy, no dysarthria Results & Data ([facility]) Vital Signs (Past 12 Hours) Vital Signs Temp Pulse Pulse Resp BP BP Pulse Ox 01/25/22 11:28 36.6 C 76 18 126/73 95 01/25/22 07:44 37.0 C 68 18 141/81 H 94 01/25/22 07:12 71 01/25/22 03:19 36.6 C 69 20 127/80 96 01/25/22 00:47 75 O2 Del Method 01/25/22 11:28 01/25/22 07:44 01/25/22 07:12 01/25/22 03:19 Room Air 01/25/22 00:47 Laboratory Results Laboratory Results - last 24 hr 01/25/22 01/25/22 01/25/22 05:27 05:27 05:27 WBC 8.98 RBC 3.74 L Hgb 11.8 L Hct 35.3 L MCV 94.4 MCH 31.6 MCHC 33.4 RDW Std Deviation 51.4 H RDW Coeff of Gertrudis 14.8 H Plt Count 161 MPV 10.2 Immature Gran % (Auto) 1.2 Neut % (Auto) 84.5 Lymph % (Auto) 5.9 [place] % (Auto) 8.4 Eos % (Auto) 0.0 Baso % (Auto) 0.0 Neut # (Auto) 7.59 H Lymph # (Auto) 0.53 L [place] # (Auto) 0.75 Eos # (Auto) 0.00 Baso # (Auto) 0.00 Immature Gran # (Auto) 0.11 H PT 15.3 H INR 1.5 H Sodium 134 L Potassium 4.1 Chloride 103 Carbon Dioxide 27 Anion Gap 4 BUN 30 H Creatinine 0.94 Est Cr Clr Drug Dosing 57.6 Est GFR ( Amer) 87.8 Est GFR (Non-Af Amer) 75.7 BUN/Creatinine Ratio 31.9 H Glucose 96 Calcium 8.1 L
--- NOTE | 2022-01-25 13:06 | Hospitalist Progress Note ---
Date of Service January 25, 2022 Assessment & Plan (1) Pericardial effusion: Plan: Admitted with weakness and weight loss and noted to have pericardial effusion on scan Blood pressure remains on the lower side but otherwise hemodynamically stable Appreciate cardiology input and recommendation Echo of the heart showed: There is a large circumferential pericardial effusion with focal fluid collection adjacent to the right ventricular free wall in the right atrium is visualized in the cervix costal view. Fibrinous strands are present. Right heart appears to be small and underfilled without definite tamponade physiology. Inferior vena cava is not plethoric and collapses inappropriately Ongoing severe LV systolic function noted. CT suggested hemopericardium and Coumadin is on hold No indication of pericardiocentesis Started intravenous Solu-Medrol and then prednisone and Protonix for GI prophylaxis Repeat echo will be done tomorrow-shows minimal improvement of the effusion Remains asymptomatic Will have pericardiocentesis tomorrow Has had a fall yesterday-mechanical fall without any significant injury No loss of consciousness Skin abrasion noted over left elbow, left shoulder and left side of left eyebrow with periorbital bruising Right thumb palpation as well Areas were bandaged and will observe Wounds are looking better (2) Acute on chronic heart 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: Plan: Echo showed severe systolic dysfunction with EF of 25% Hold furosemide and metoprolol due to low blood pressure and dehydration with acute on chronic renal impairment No symptoms of fluid overload (3) Paroxysmal atrial fibrillation: Plan: Remains in sinus rhythm Rate is controlled Metoprolol is on hold due to low blood pressure and CHF Repeat echo EKG requested Hold coumadin for concern of hemopericardium Rate is controlled (4) Gross hematuria: Plan: -Noted to have leukocytosis -h/o gross hematuria in June prior and had cystoscopy -felt to be related to BPH then -based on UA, continue Rocephin for possible UTI -Coumadin is on hold due to hematuria -No hematuria (5) [facility] (acute kidney injury): Plan: -Chronic kidney disease, stage 2-3 -Likely due to hypotension, baseline creatinine 0.8-1.2 -Creatinine 2.17 on admission, 1.67 now. -Holding IV fluids for now as well as furosemide -Monitor PRP-kidney function is normalized Mood disorder No acute delirium Continue Lexapro Hyperlipidemia Continue statin DVT prophylaxis We will hold Coumadin for now and will not administer any pharmacologic anti coagulation given hemopericardium INR is 1.9 Coumadin remains on hold. INR is 1.7 as of 01/24/2022 We will get INR tomorrow CODE STATUS Full Admission and Anticipated Discharge Date Admission Date: January 22, 2022 Subjective 01/22/2022 The patient was seen and examined in medical telemetry unit He was admitted with extreme weakness and tiredness and denies to have any significant symptoms in bed No chest pain, palpitation or shortness of breath No abdominal pain nausea no vomiting and no fever and or chills 01/23/2022 The patient was seen and examined in medical telemetry unit He has had a fall at the bedside without any loss of consciousness He tender over to cigar packer and picker something and while in the process of standing he fell Injured right thumb, left elbow and left eyebrow on the left side Denies any other significant symptoms Will observe 01/24/2022 The patient was seen and examined in medical telemetry unit He remained stable and denies any significant symptoms Left shoulder wound is still oozing blood 01/25/2022 The patient was seen and examined in telemetry unit in presence of the She has been feeling little better today denies any dryness of mouth, numbness or tingling in the extremities Her shortness of breath remains stable We will get PT and OT evaluation for possible discharge tomorrow Review of Systems Review of Systems: All systems reviewed and are unremarkable except as noted below Cardiovascular: Additional Comments: No cardiac symptoms Physical Exam Physical Exam: Lying in bed comfortably Constitutional: + ill appearing and average body habitus Eyes: PERRL, conjunctivae normal, anicteric sclerae ENMT: external ear and nose normal, oropharynx normal Neck: trachea midline, no thyromegaly Respiratory: no respiratory distress Auscultation: lungs clear to auscultation bilaterally and + crackles (Occasional crackles at the bases) Cardiovascular: Rate/Rhythm: regular rate and regular rhythm; not tachycardic Heart Sounds: normal S1 and normal S2; no murmur Extremities: no edema (Trace edema bilaterally) Gastrointestinal (Abdomen): Inspection/Auscultation: normal bowel sounds; abdomen not distended Percussion/Palpation: abdomen soft; abdomen nontender Musculoskeletal: No acute arthritis in any joint Neurologic: normal touch/pain/proprioception and moves all extremities; no focal motor deficits Psychiatric: A+Ox3, euthymic affect Lymphatic: no cervical or axillary lymphadenopathy Results & Data Results & Data ([facility]) Vital Signs (Past 12 Hours) Vital Signs Temp Pulse Pulse Resp BP BP Pulse Ox 01/25/22 11:28 36.6 C 76 18 126/73 95 01/25/22 07:44 37.0 C 68 18 141/81 H 94 01/25/22 07:12 71 01/25/22 03:19 36.6 C 69 20 127/80 96 O2 Del Method 01/25/22 11:28 01/25/22 07:44 01/25/22 07:12 01/25/22 03:19 Room Air Laboratory Results Short CBC 01/25/22 Range/Units 05:27 WBC 8.98 (4.8-10.8) K/ul Hgb 11.8 L (14.0-18.0) g/dl Hct 35.3 L (40.1-51.0) % Plt Count 161 (130-400) K/uL BMP 01/25/22 05:27 Sodium 134 L Potassium 4.1 Chloride 103 Carbon Dioxide 27 BUN 30 H Creatinine 0.94 Glucose 96 Calcium 8.1 L Medications Administered Current Inpatient Medications Acetaminophen (Acetaminophen 325 Mg Tab) 650 mg PO Q4H PRN PRN Reason: Pain or Fever Stop: 02/21/22 03:16 Last Admin: 01/24/22 20:07 Dose: 650 mg Amiodarone HCl (Amiodarone 200 Mg Tab) 200 mg PO HS XUAN Stop: 02/21/22 20:59 Last Admin: 01/24/22 20:05 Dose: 200 mg Atorvastatin Calcium (Atorvastatin 40 Mg Tab) 40 mg PO HS XUAN Stop: 02/21/22 20:59 Last Admin: 01/24/22 20:05 Dose: 40 mg Escitalopram Oxalate (Escitalopram Oxalate 10 Mg Tab) 5 mg PO DAILY XUAN Stop: 02/21/22 08:59 Last Admin: 01/25/22 08:07 Dose: 5 mg Finasteride (Finasteride 5 Mg Tab) 5 mg PO QAM XUAN Stop: 02/21/22 08:59 Last Admin: 01/25/22 08:07 Dose: 5 mg Ceftriaxone Sodium 2,000 mg/ (Dextrose) 70 mls @ 100 mls/hr IV DAILY XUAN; Protocol Stop: 02/01/22 08:59 Last Infusion: 10/30/22 08:53 Dose: Infused Melatonin (Melatonin 3 Mg Tab) 3 mg PO HS PRN PRN Reason: Sleep Stop: 02/21/22 20:10 Last Admin: 01/23/22 20:01 Dose: 3 mg Nitroglycerin (Nitroglycerin Sl 0.4 Mg/Tab Tab) 0.4 mg SL UD PRN PRN Reason: Chest Pain Stop: 02/21/22 03:16 Ondansetron HCl (Ondansetron Inj 2 Mg/Ml 2 Ml Vial) 4 mg IV Q6H PRN PRN Reason: Nausea Stop: 02/21/22 03:16 Pantoprazole Sodium (Pantoprazole 40 Mg Tab) 40 mg PO QAM [facility] Stop: 02/21/22 08:59 Last Admin: 01/25/22 08:07 Dose: 40 mg Polyethylene Glycol (Polyethylene (Miralax) 17 Gm Pack) 17 gm PO DAILY PRN PRN Reason: Constipation Stop: 02/21/22 03:16 Prednisone (Prednisone 20 Mg Tab) 20 mg PO DAILY XUAN Stop: 02/22/22 08:59 Last Admin: 01/25/22 08:07 Dose: 20 mg
[2022-01-25] MEDS: ATORVASTATIN 40 MG TAB PO SCH (20:34)
[2022-01-25] MEDS: AMIODARONE 200 MG TAB PO SCH (20:34)
[2022-01-25] MEDS: MELATONIN 3 MG TAB PO PRN (20:34)
[2022-01-26 06:50] LABS: Basophils # (auto) 0.01 K/uL (0-0.2); Basophils % (auto) 0.1 %; Eosinophils # (auto) 0.01 K/uL (0-0.50); Eosinophils % (auto) 0.1 %; Hematocrit (blood only) 37.4 % (40.1-51.0); Hemoglobin 12.7 g/dl (14.0-18.0); Immature Granulocytes # (auto) 0.09 K/uL (0.00-0.02); Immature Granulocytes % (auto) 0.9 %; Lymphocytes # (auto) 0.71 K/uL (1.2-3.4); Lymphocytes % (auto) 6.9 %; Mean Corpuscular Hemoglobin 31.4 pg (25.0-34.0); Mean Corpuscular Volume 92.6 fL (80.0-100.0); Mean Platelet Volume 10.3 fL (9.4-12.4); Monocytes # (auto) 0.73 K/uL (0.24-0.82); Monocytes % (auto) 7.1 %; Neutrophils # (auto) 8.73 K/uL (1.4-6.5); Neutrophils % (auto) 84.9 %; Platelet Count 168 K/uL (130-400); RDW Coefficient of Variation 14.7 % (11.5-14.5); RDW Standard Deviation 50.5 fL (36.4-46.3); Red Blood Count 4.04 M/uL (4.63-6.08); White Blood Count 10.28 K/ul (4.8-10.8)
[2022-01-26 07:07] LABS: BUN Creatinine Ratio 28.7 (10-20); Calcium 8.3 mg/dl (8.5-10.1); Creatinine Clr Calc Pharmacy 53.6 ml/min; Est GFR (African American) 80.5 ml/min; Est GFR (Non-African American) 69.4 ml/min; Potassium 4.2 mmol/L (3.5-5.1)
[2022-01-26 07:09] LABS: INR 1.3 (0.9-1.1); Prothrombin Time 13.5 Seconds (9.0-12.0)
[2022-01-26] MEDS: ACETAMINOPHEN 325 MG TAB PO PRN (08:37)
[2022-01-26] MEDS: predniSONE 20 MG TAB PO SCH (08:38)
[2022-01-26] MEDS: ESCITALOPRAM OXALATE 10 MG TAB PO SCH (08:38)
[2022-01-26] MEDS: PANTOprazole 40 MG TAB PO SCH (08:38)
[2022-01-26] MEDS: FINASTERIDE 5 MG TAB PO SCH (08:38)
[2022-01-26] MEDS: cefTRIAXone SODIUM 2,000 MG in DEXTROSE 5% 50 ML IV SCH (08:41)
--- NOTE | 2022-01-26 11:37 | Cardiology Progress Note ---
Date of Service January 26, 2022 Assessment & Plan (1) Pericardial effusion: Plan: -Repeat limited echo on 01/26 (2) Acute on chronic heart 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: (3) Paroxysmal atrial fibrillation: (4) Gross hematuria: Plan: -h/o gross hematuria in June prior and had cystoscopy -felt to be related to BPH then -Holding coumadin -based on UA, continue Rocephin for possible UTI (5) [facility] (acute kidney injury): Plan: -Likely due to hypotension, baseline creatinine 0.8-1.2 -Creatinine 2.17 on admission, now back to baseline Plan 81-year-old male admitted with weakness and fatigue possible urinary complaints with evidence of renal insufficiency. CT scan of chest demonstrated moderate large pericardial effusion. Initial echocardiogram without tamponade. Patient begun on corticosteroids with prednisone. Clinically feels improved this morning blood pressures improved after holding medications No overt bleeding no fevers or chills. No further dysuria hematuria 01/26/2022: Echocardiogram reviewed, pericardial effusion continues to decrease in size. No hemodynamic significance. Plan: We will discharge patient on slow prednisone taper 20 mg p.o. daily x1 week, 10 mg p.o. daily x1 week, 5 mg p.o. daily 1 week then 2.5 mg p.o. daily for 1 week Continue amiodarone. Restart Toprol at 50 mg p.o. daily Will continue to hold warfarin, lisinopril and diuretics Cardiology appointment scheduled 02/02/2022 Admission and Anticipated Discharge Date Admission Date: January 22, 2022 Subjective Patient seen and examined, chart, medications, telemetry reviewed. No cardiac complaints overall feels well. Blood pressure good no dizziness or lightheadedness. No arrhythmias on telemetry Review of Systems Review of Systems: All systems reviewed & are unremarkable except as noted in Subjective Physical Exam Physical Exam: Temp Pulse Resp BP Pulse Ox O2 Del Method 36.3 C L 75 18 103/72 95 01/22/22 07:27 01/22/22 07:27 01/22/22 07:27 01/22/22 07:27 01/22/22 07:27 01/22/22 07:27 Constitutional: WD/WN, vitals as above (No pulsus paradoxus) + thin Eyes: PERRL, conjunctivae normal, anicteric sclerae Neck: trachea midline, no thyromegaly Respiratory: no respiratory distress and no labored breathing Auscultation: + diminished lung sounds (mildly reduced breath sound at the bases ); no crackles, no rales and no rhonchi Cardiovascular: RRR, no murmur, no edema Vessels: normal carotid upstroke; no JVD Extremities: no edema Chest (Breasts): Chest: + pacemaker Gastrointestinal (Abdomen): normal bowel sounds, soft, nontender, no hepatosplenomegaly Musculoskeletal: no cyanosis or clubbing, extremities motor strength 5/5 Neurologic: PERRL, EOMI, accommodation nl, no face palsy, no dysarthria Results & Data ([facility]) Vital Signs (Past 12 Hours) Vital Signs Temp Pulse Pulse Resp BP BP Pulse Ox 01/26/22 08:00 70 01/26/22 07:31 37.0 C 69 20 130/80 95 01/26/22 03:00 36.5 C 70 18 148/84 H 96 01/26/22 03:00 Pulse Ox O2 Del Method O2 Del Method 01/26/22 08:00 01/26/22 07:31 Room Air 01/26/22 03:00 Room Air 01/26/22 03:00 96 Room Air Laboratory Results Laboratory Results - last 24 hr 01/26/22 01/26/22 01/26/22 06:18 06:18 06:18 WBC 10.28 RBC 4.04 L Hgb 12.7 L Hct 37.4 L MCV 92.6 MCH 31.4 MCHC 34.0 RDW Std Deviation 50.5 H RDW Coeff of Gertrudis 14.7 H Plt Count 168 MPV 10.3 Immature Gran % (Auto) 0.9 Neut % (Auto) 84.9 Lymph % (Auto) 6.9 [place] % (Auto) 7.1 Eos % (Auto) 0.1 Baso % (Auto) 0.1 Neut # (Auto) 8.73 H Lymph # (Auto) 0.71 L [place] # (Auto) 0.73 Eos # (Auto) 0.01 Baso # (Auto) 0.01 Immature Gran # (Auto) 0.09 H PT 13.5 H INR 1.3 H Sodium 135 L Potassium 4.2 Chloride 104 Carbon Dioxide 28 Anion Gap 3 BUN 29 H Creatinine 1.01 Est Cr Clr Drug Dosing 53.6 Est GFR ( Amer) 80.5 Est GFR (Non-Af Amer) 69.4 BUN/Creatinine Ratio 28.7 H Glucose 95 Calcium 8.3 L
[2022-01-26] MEDS ORDERED: METOPROLOL SUCC 50MG EXT REL TAB PO SCH (12:00)
--- NOTE | 2022-01-26 13:36 | Hospitalist Progress Note ---
Date of Service January 26, 2022 Assessment & Plan (1) Pericardial effusion: Plan: Admitted with weakness and weight loss and noted to have pericardial effusion on scan Blood pressure remains on the lower side but otherwise hemodynamically stable Appreciate cardiology input and recommendation Echo of the heart showed: There is a large circumferential pericardial effusion with focal fluid collection adjacent to the right ventricular free wall in the right atrium is visualized in the cervix costal view. Fibrinous strands are present. Right heart appears to be small and underfilled without definite tamponade physiology. Inferior vena cava is not plethoric and collapses inappropriately Ongoing severe LV systolic function noted. CT suggested hemopericardium and Coumadin is on hold No indication of pericardiocentesis Started intravenous Solu-Medrol and then prednisone and Protonix for GI prophylaxis Repeat echo will be done tomorrow-shows minimal improvement of the effusion Remains asymptomatic. Repeat echo today showed limited study was done to reassess pericardial effusion. Moderately large pericardial effusion is present. Effusion size appears slightly diminished in comparison to prior study of 01/25/2022. There is no IVC dilation or hemodynamic finding to suggest tamponade. Right atrium and right ventricle appear better filled. Clinically much better and does not require any pericardiocentesis Be discharged home this afternoon Has had a fall yesterday-mechanical fall without any significant injury No loss of consciousness Skin abrasion noted over left elbow, left shoulder and left side of left eyebrow with periorbital bruising Right thumb palpation as well Areas were bandaged and will observe Wounds are looking better-advised to continue dressing as per instruction (2) Acute on chronic heart 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: Plan: Echo showed severe systolic dysfunction with EF of 25% Hold furosemide and metoprolol due to low blood pressure and dehydration with acute on chronic renal impairment No symptoms of fluid overload (3) Paroxysmal atrial fibrillation: Plan: Remains in sinus rhythm Rate is controlled Metoprolol is on hold due to low blood pressure and CHF Repeat echo EKG requested Hold coumadin for concern of hemopericardium Rate is controlled-we will continue current medications (4) Gross hematuria: Plan: -Noted to have leukocytosis -h/o gross hematuria in June prior and had cystoscopy -felt to be related to BPH then -based on UA, continue Rocephin for possible UTI -Coumadin is on hold due to hematuria -No hematuria (5) EMORY (acute kidney injury): Plan: -Chronic kidney disease, stage 2-3 -Likely due to hypotension, baseline creatinine 0.8-1.2 -Creatinine 2.17 on admission, 1.67 now. -Holding IV fluids for now as well as furosemide -Monitor PRP-kidney function is normalized Mood disorder No acute delirium Continue Lexapro Hyperlipidemia Continue statin DVT prophylaxis We will hold Coumadin for now and will not administer any pharmacologic anticoagulation given hemopericardium INR is 1.9 Coumadin remains on hold. INR is 1.7 as of 01/24/2022 We will get INR tomorrow Will be discharged home this afternoon CODE STATUS Full Admission and Anticipated Discharge Date Admission Date: January 22, 2022 Subjective 01/22/2022 The patient was seen and examined in medical telemetry unit He was admitted with extreme weakness and tiredness and denies to have any significant symptoms in bed No chest pain, palpitation or shortness of breath No abdominal pain nausea no vomiting and no fever and or chills 01/23/2022 The patient was seen and examined in medical telemetry unit He has had a fall at the bedside without any loss of consciousness He tender over to apple picker something and while in the process of standing he fell Injured right thumb, left elbow and left eyebrow on the left side Denies any other significant symptoms Will observe 01/24/2022 The patient was seen and examined in medical telemetry unit He remained stable and denies any significant symptoms Left shoulder wound is still oozing blood 01/25/2022 The patient was seen and examined in telemetry unit in presence of the She has been feeling little better today denies any dryness of mouth, numbness or tingling in the extremities Her shortness of breath remains stable We will get PT and OT evaluation for possible discharge tomorrow 01/26/2022 The patient was seen and examined in medical telemetry unit He has been feeling much better and denies any significant symptoms He has been ambulating in the room without any difficulties Will be discharged home this afternoon Review of Systems Review of Systems: All systems reviewed and are unremarkable except as noted below Cardiovascular: Additional Comments: No cardiac symptoms Physical Exam Physical Exam: Lying in bed comfortably Constitutional: + ill appearing and average body habitus Eyes: PERRL, conjunctivae normal, anicteric sclerae ENMT: external ear and nose normal, oropharynx normal Neck: trachea midline, no thyromegaly Respiratory: no respiratory distress Auscultation: lungs clear to auscultation bilaterally and + crackles (Occasional crackles at the bases) Cardiovascular: Rate/Rhythm: regular rate and regular rhythm; not tachycardic Heart Sounds: normal S1 and normal S2; no murmur Extremities: no edema (Trace edema bilaterally) Gastrointestinal (Abdomen): Inspection/Auscultation: normal bowel sounds; abdomen not distended Percussion/Palpation: abdomen soft; abdomen nontender Musculoskeletal: No acute arthritis in any joint Neurologic: normal touch/pain/proprioception and moves all extremities; no focal motor deficits Psychiatric: A+Ox3, euthymic affect Lymphatic: no cervical or axillary lymphadenopathy Results & Data Results & Data ([facility]) Vital Signs (Past 12 Hours) Vital Signs Temp Pulse Pulse Resp BP BP Pulse Ox 01/26/22 08:00 70 01/26/22 07:31 37.0 C 69 20 130/80 95 01/26/22 03:00 36.5 C 70 18 148/84 H 96 01/26/22 03:00 Pulse Ox O2 Del Method O2 Del Method 01/26/22 08:00 01/26/22 07:31 Room Air 01/26/22 03:00 Room Air 01/26/22 03:00 96 Room Air Laboratory Results Short CBC 01/26/22 Range/Units 06:18 WBC 10.28 (4.8-10.8) K/ul Hgb 12.7 L (14.0-18.0) g/dl Hct 37.4 L (40.1-51.0) % Plt Count 168 (130-400) K/uL BMP 01/26/22 06:18 Sodium 135 L Potassium 4.2 Chloride 104 Carbon Dioxide 28 BUN 29 H Creatinine 1.01 Glucose 95 Calcium 8.3 L Medications Administered Current Inpatient Medications Acetaminophen (Acetaminophen 325 Mg Tab) 650 mg PO Q4H PRN PRN Reason: Pain or Fever Stop: 02/21/22 03:16 Last Admin: 01/26/22 08:37 Dose: 650 mg Amiodarone HCl (Amiodarone 200 Mg Tab) 200 mg PO HS XUAN Stop: 02/21/22 20:59 Last Admin: 01/25/22 20:34 Dose: 200 mg Atorvastatin Calcium (Atorvastatin 40 Mg Tab) 40 mg PO HS XUAN Stop: 02/21/22 20:59 Last Admin: 01/25/22 20:34 Dose: 40 mg Escitalopram Oxalate (Escitalopram Oxalate 10 Mg Tab) 5 mg PO DAILY [facility] Stop: 02/21/22 08:59 Last Admin: 01/26/22 08:38 Dose: 5 mg Finasteride (Finasteride 5 Mg Tab) 5 mg PO QAM [facility] Stop: 02/21/22 08:59 Last Admin: 01/26/22 08:38 Dose: 5 mg Ceftriaxone Sodium 2,000 mg/ (Dextrose) 70 mls @ 100 mls/hr IV DAILY [facility]; Protocol Stop: 02/01/22 08:59 Last Infusion: 01/26/22 10:22 Dose: Infused Melatonin (Melatonin 3 Mg Tab) 3 mg PO HS PRN PRN Reason: Sleep Stop: 02/21/22 20:10 Last Admin: 01/25/22 20:34 Dose: 3 mg Metoprolol Succinate (Metoprolol Succ 50mg Ext Rel Tab) 50 mg PO QAM [facility] Stop: 02/25/22 11:59 Last Admin: 01/26/22 12:43 Dose: 50 mg Nitroglycerin (Nitroglycerin Sl 0.4 Mg/Tab Tab) 0.4 mg SL UD PRN PRN Reason: Chest Pain Stop: 02/21/22 03:16 Ondansetron HCl (Ondansetron Inj 2 Mg/Ml 2 Ml Vial) 4 mg IV Q6H PRN PRN Reason: Nausea Stop: 02/21/22 03:16 Pantoprazole Sodium (Pantoprazole 40 Mg Tab) 40 mg PO QAM [facility] Stop: 02/21/22 08:59 Last Admin: 01/26/22 08:38 Dose: 40 mg Polyethylene Glycol (Polyethylene (Miralax) 17 Gm Pack) 17 gm PO DAILY PRN PRN Reason: Constipation Stop: 02/21/22 03:16 Prednisone (Prednisone 20 Mg Tab) 20 mg PO DAILY [facility] Stop: 02/22/22 08:59 Last Admin: 01/26/22 08:38 Dose: 20 mg
--- NOTE | 2022-01-26 16:40 | Discharge Summary ---
Date of Service January 26, 2022 Admission HPI Per Admitting Provider DICTATED BY:Dylon Haq MD DATE OF ADMISSION: 01/22/2022. CHIEF COMPLAINT: Weakness, weight loss. HISTORY OF PRESENT ILLNESS: An 81-year-old male with past medical history significant for hyperlipidemia, history of pleural effusion, history of sustained ventricular tachycardia, nonischemic cardiomyopathy, EF of 25%, status post biventricular automatic ICD, history of AFib, chronic systolic CHF, history of nonobstructive CAD, hypertension, right bundle-branch block, constipation, BPH, history of [place] syncope, history of hematuria, history of adjustment disorder. The patient presents with abnormal labs and weakness and weight loss. 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 Daughter is in the room. As per daughter, he is losing weight lately and was recently started on Lexapro as per PCP notes and also as per the patient in the last 2 weeks his appetite is improved, but still losing weight. As per daughter, he lost about 20 pounds in 1 month. Saw his PCP, and outpatient labs showed EMORY with creatinine of 2 and elevated white count and was advised to come to the hospital. The patient, in the ER, blood pressure was soft; after fluids blood pressure is slowly coming up. The patient is micturating a lot. Denies any blood in the urine. Denies any chest pain or shortness of breath, no nausea, no vomiting, no abdominal pain, no headache, no neck pain, no back pain, no cough. Has some runny nose from his allergies. No earaches, no sore throat, no difficulty swallowing. Alert and oriented. Says lately he is feeling very weak and he is having ambulatory dysfunction because of weakness in the legs. Admission Exam Per Admitting Provider GENERAL: The patient is old and frail, not in acute distress. VITAL SIGNS: Temperature 36.9, pulse 70, respiratory rate 73, blood pressure 94/72, oxygen 97% on room air. HEENT: Pupils equal, round, and reactive to light. Oral mucosa moist. NECK: No JVD, no neck masses. CARDIOVASCULAR: S1 and S2 heard. Regular rate and rhythm. No murmur, no gallop. RESPIRATORY SYSTEM: Normal AP diameter. No accessory muscle use. No wheezing, no crackles. ABDOMEN: Soft, bowel sounds present, nontender, no distention. CENTRAL NERVOUS SYSTEM: Cranial nerves II through XII grossly intact, nonfocal. EXTREMITIES: No edema, no erythema. Principal Diagnosis Pericardial effusion without tamponade, acute on chronic heart failure with reduced EF and diastolic dysfunction, chronic A. fib Discharge Exam Lying in bed comfortably Constitutional + ill appearing and average body habitus Eyes PERRL, conjunctivae normal, anicteric sclerae ENMT external ear and nose normal, oropharynx normal Neck trachea midline, no thyromegaly Respiratory no respiratory distress Auscultation: lungs clear to auscultation bilaterally and + crackles (Occasional crackles at the bases) Cardiovascular Rate/Rhythm: regular rate and regular rhythm; not tachycardic Heart Sounds: normal S1 and normal S2; no murmur Extremities: no edema (Trace edema bilaterally) Gastrointestinal (Abdomen) Inspection/Auscultation: normal bowel sounds; abdomen not distended Percussion/Palpation: abdomen soft; abdomen nontender Neurologic normal touch/pain/proprioception and moves all extremities; no focal motor deficits Psychiatric A+Ox3, euthymic affect Lymphatic no cervical or axillary lymphadenopathy Discharge Data Allergies Allergy/AdvReac Type Severity Reaction Status Date / Time amoxicillin Allergy Intermediate Hives Verified 01/21/22 21:55 sulfamethoxazole Allergy Mild Unknown Verified 01/23/22 15:30 [From Bactrim] trimethoprim [From Bactrim] Allergy Mild Unknown Verified 01/23/22 15:30 Consultations 01/21/22 21:42 ED Decision to Admit Stat 01/22/22 08:00 Consult Cardiology Routine Ordered Studies 01/21/22 21:43 CT abd pelvis wo con Urgent 01/22/22 08:00 CT chest diagnostic wo con Urgent Hospital Course (1) Pericardial effusion: Admitted with weakness and weight loss and noted to have pericardial effusion on scan Blood pressure remains on the lower side but otherwise hemodynamically stable Appreciate cardiology input and recommendation Echo of the heart showed: There is a large circumferential pericardial effusion with focal fluid collection adjacent to the right ventricular free wall in the right atrium is visualized in the cervix costal view. Fibrinous strands are present. Right heart appears to be small and underfilled without definite tamponade physiology. Inferior vena cava is not plethoric and collapses inappropriately Ongoing severe LV systolic function noted. CT suggested hemopericardium and Coumadin is on hold No indication of pericardiocentesis Started intravenous Solu-Medrol and then prednisone and Protonix for GI prophylaxis Repeat echo will be done tomorrow-shows minimal improvement of the effusion Remains asymptomatic. Repeat echo today showed limited study was done to reassess pericardial effusion. Moderately large pericardial effusion is present. Effusion size appears slightly diminished in comparison to prior study of 01/25/2022. There is no IVC dilation or hemodynamic finding to suggest tamponade. Right atrium and right ventricle appear better filled. Clinically much better and does not require any pericardiocentesis Be discharged home this afternoon Has had a fall yesterday-mechanical fall without any significant injury No loss of consciousness Skin abrasion noted over left elbow, left shoulder and left side of left eyebrow with periorbital bruising Right thumb palpation as well Areas were bandaged and will observe Wounds are looking better-advised to continue dressing as per instruction (2) Acute on chronic heart 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: Echo showed severe systolic dysfunction with EF of 25% Hold furosemide and metoprolol due to low blood pressure and dehydration with acute on chronic renal impairment No symptoms of fluid overload (3) Paroxysmal atrial fibrillation: Remains in sinus rhythm Rate is controlled Metoprolol is on hold due to low blood pressure and CHF Repeat echo EKG requested Hold coumadin for concern of hemopericardium Rate is controlled-we will continue current medications (4) Gross hematuria: -Noted to have leukocytosis -h/o gross hematuria in June prior and had cystoscopy -felt to be related to BPH then -based on UA, continue Rocephin for possible UTI -Coumadin is on hold due to hematuria -No hematuria (5) EMORY (acute kidney injury): -Chronic kidney disease, stage 2-3 -Likely due to hypotension, baseline creatinine 0.8-1.2 -Creatinine 2.17 on admission, 1.67 now. -Holding IV fluids for now as well as furosemide -Monitor PRP-kidney function is normalized Mood disorder No acute delirium Continue Lexapro Hyperlipidemia Continue statin DVT prophylaxis We will hold Coumadin for now and will not administer any pharmacologic anticoagulation given hemopericardium INR is 1.9 Coumadin remains on hold. INR is 1.7 as of 01/24/2022 We will get INR tomorrow Will be discharged home this afternoon CODE STATUS Full Total Time Total Time Spent Total Time Spent (In Minutes): 35 minutes Discharge Plan Discharge Items Patient Disposition: Home - Self-Care Reason For Visit: WEAKNESS Discharge Diagnosis: Pericardial effusion without tamponade, acute on chronic heart failure with reduced EF and diastolic dysfunction, chronic A. fib Condition on Discharge: Fair Activity: Resume your previous activity Non-emergency contact: Primary Care Provider Call non-emergency contact if: you have any medication questions and your symptoms worsen Follow-up/Referrals: Mack Sim DO [Cigar Head Perforator] - (Date & Time 02/02/2022 8:30 AM Provider Mack Sim DO Department Cardiology, [facility] ) Cee Pope CRNP [Primary Care Provider] - (Date & Time 01/29/2022 2:00 PM Provider VIVIAN Hernandez Department Family Practice [facility] ) Diet: Heart Healthy Fluids: 1500ml (6 cups) Elyssa Attending Provider Instructions: Please take precautions to avoid fall Apply dressing at the wounds as advised Take your medications as advised Your warfarin, lisinopril and diuretics will be on hold for now Your metoprolol succinate there is Toprol-XL will be 50 mg daily Please keep appointments with your healthcare providers Elyssa Manager [employer] Provider Instructions: Cardiology follow up visit: 02/02/2022 ,8:30 AM Provider : Mack Sim DO Department :Cardiology, [facility] Pending Studies at Discharge: No Stand-Alone Forms: My GoTable, Smoking Cessation Medications and DC Order Prescriptions: New metoprolol succinate 50 mg Tablet Extended Release 24 Hr 50 mg PO QAM 30 Days Qty: 30 0RF prednisone 10 mg tablet 10 mg PO UD Qty: 17 0RF Rx Instructions: 2 p.o. daily for 1 week, 1 p.o. daily for 1 week, half tablet (5mg) p.o. daily for 1 week and then one fourth (2.5mg) of a tablet daily for 1 week Continued finasteride [Proscar] 5 mg tablet 5 mg PO QAM Qty: 90 3RF atorvastatin [Lipitor] 40 mg tablet 40 mg PO HS Qty: 30 0RF amiodarone 200 mg Tablet 200 mg PO HS escitalopram oxalate 5 mg tablet 5 mg PO DAILY Discontinued lisinopril [Zestril] 5 mg Tablet 5 mg PO QAM Qty: 30 0RF warfarin 1 mg Tablet 1 mg PO USEASDIRECTD Rx Instructions: DOSE PER ANTICOAG. Warfarin 1mg po daily on Wed and and warfarin 2mg po daily on other days. metoprolol succinate 100 mg tablet extended release 24 hr 100 mg PO BID furosemide 20 mg tablet 20 mg PO Q OTHER DAY Qty: 15 0RF potassium chloride 20 mEq tablet extended release 20 meq PO Q OTHER DAY Qty: 15 0RF Rx Instructions: take 20 meq tablet on the days when you take lasix. Discharge Orders: Discharge Order (Routine); Ordered 01/26/22 Ordered By: Destiney Mendoza Admission Data Admit Date/Time: 01/22/22 00:59 Attending Provider: Destiney Mendoza Admit Provider: Dylon Haq Primary Care Provider: Cee Pope Other Providers: Dylon Haq ; Mack Sim Other Interventions: Discharge Summary Assessment (RN) Last Done: 01/26/22 14:47
== END 2022-01-26 16:53 | disposition home or self-care (01) | DRG 291 ==
LOC: ED 20:01 → 2N 01-22 00:59

== ENCOUNTER 2022-02-23 09:58 | Inpatient (IN) ==
[2022-02-23 11:20] LABS: Basophils # (auto) 0.01 K/uL (0-0.2); Basophils % (auto) 0.1 %; Eosinophils # (auto) 0.01 K/uL (0-0.50); Eosinophils % (auto) 0.1 %; Hematocrit (blood only) 40.6 % (40.1-51.0); Hemoglobin 13.5 g/dl (14.0-18.0); Immature Granulocytes % (auto) 1.1 %; Lymphocytes # (auto) 0.66 K/uL (1.2-3.4); Lymphocytes % (auto) 7.2 %; Mean Corpuscular Hemoglobin 31.7 pg (25.0-34.0); Mean Corpuscular Hgb Conc 33.3 g/dL (32.0-36.0); Mean Corpuscular Volume 95.3 fL (80.0-100.0); Mean Platelet Volume 9.3 fL (9.4-12.4); Monocytes # (auto) 0.63 K/uL (0.24-0.82); Monocytes % (auto) 6.9 %; Neutrophils # (auto) 7.76 K/uL (1.4-6.5); Neutrophils % (auto) 84.6 %; Platelet Count 314 K/uL (130-400); RDW Coefficient of Variation 17.1 % (11.5-14.5); RDW Standard Deviation 59.3 fL (36.4-46.3); Red Blood Count 4.26 M/uL (4.63-6.08); White Blood Count 9.17 K/ul (4.8-10.8)
--- NOTE | 2022-02-23 11:27 | XRay Report ---
XR chest 1V portable HISTORY: 82 years-old Male SOB acute shortness of breath COMPARISON: 02/08/2022 TECHNIQUE: AP view of the chest FINDINGS: Cardiac silhouette is enlarged. Mild prominence of the thoracic aorta. Pulmonary vascular congestion with interstitial coarsening. Left subclavian pacer/AICD. No pneumothorax. Small layering pleural eff usions with bibasilar consolidation. Degenerative changes of the shoulders and spine. Loose bodies of the right axillary recess. IMPRESSION: 1. Cardiomegaly with mild pulmonary edema. 2. Small pleural effusions with bibasilar consolidation. ACT 112: Negative or not required by law. The above report was generated using voice recognition software. It may contain grammatical, syntax o r spelling errors. Electronically signed by: Jd Schaefer M.D. 02/23/2022 11:25 AM
[2022-02-23 11:52] LABS: Troponin I High Sensitivity 42.4 pg/ml (0-20)
--- NOTE | 2022-02-23 11:56 | Emergency Department Note ---
History of Present Illness General Chief complaint: Shortness of Breath/Dyspnea Stated complaint: SHORT OF BREATH Time Seen by Provider: 02/23/22 11:43 Source: patient and family Mode of arrival: ambulatory Limitations: no limitations History of Present Illness Provider complaint: shortness of breath Maximum Pain Intensity: 0 This is an 82 yo male brought in by family due to concern for increased dyspnea with exertion, weakness, and shakiness. Family states he had an upper respiratory infection a couple weeks ago and did take a course of doxycycline for this and felt those symptoms had improved. This weekend family noted increased symptoms again as well as an increase in daily weights so that gave him his water pill 3 days in a row which is his protocol. He otherwise takes it every other day. He has extensive heart history and see Dr. Sim. They state his cough and breathing were improved and weight improved Wednesday after 3 days of diuretic but seemed worse again today without any increase in weight. Family also concerned due to recent pericardial effusion which he was admitted for. Patient just finished last of prednisone today from a month long taper for his pericardial effusion. Family also states they started hearing an alarm coming from his pacer/AICD, first on Wednesday and again today. He has not been defibrillated. Patient has been off his blood thinner since being dx with pericardial effusion. Patient also had a fall 2 weeks ago onto his left side a nd family concerned this may be the reason for the alarm on his device. Patient seen in triage initially as he presented on a day of high volume and acuity. Home Medications Medication Instructions Recorded Confirmed Type atorvastatin 40 mg tablet (Lipitor) 40 mg PO HS #30 tabs 07/26/21 02/23/22 Rx amiodarone 200 mg tablet 200 mg PO QAM 10/17/21 02/23/22 History finasteride 5 mg tablet (Proscar) 5 mg PO QAM #90 tabs 11/04/21 02/23/22 Rx escitalopram oxalate 5 mg tablet 5 mg PO HS 01/22/22 02/23/22 History metoprolol succinate 50 mg 50 mg PO QAM 30 days #30 tabs 01/26/22 02/23/22 Rx tablet,extended release 24 hr furosemide 20 mg tablet 20 mg PO DIRECTED 02/23/22 02/23/22 History Allergies Allergy/AdvReac Type Severity Reaction Status Date / Time amoxicillin Allergy Intermediate Hives Verified 01/21/22 21:55 sulfamethoxazole Allergy Mild Unknown Verified 01/23/22 15:30 [From Bactrim] trimethoprim [From Bactrim] Allergy Mild Unknown Verified 01/23/22 15:30 Past Med/Surg History Medical History (Updated 02/24/22 @ 08:49 by Martha Ford DO) Atrial fibrillation, new onset Dx June 2021 > digoxin, Coumadin > follows with Dr. Sim > pacemaker BPH (benign prostatic hyperplasia) CAD (coronary artery disease) Per cardio records- mild nonobstructive CAD (20% ostial LM, 25% mid LAD, ectatic LCX with 20% proximal stenosis and a 30% distal stenosis, 30% mid RCA), normal intracardiac filling pressure. History of COVID-16 Mar 2020 > "never tested", not hospitalized, "bad cold symptoms">resolved. Hx of basal cell carcinoma "Nose, back, chest" Hyperlipidemia Hypertension Nonischemic cardiomyopathy EF 20-30% S/p pacer/ICD placement Pacemaker Pacemaker/ACID. Placed 06/2021 [facility] > [employer] Pericardial effusion RBBB Stroke Approx 7 yrs ago > no residual effects, mild stroke per pt > no neuro Ventricular tachycardia Pacemaker/ICD in place Surgical History History of cardiac cath 06/2021 > [facility] > no stents; f/u Dr. Sim History of colonoscopy History of tooth extraction Family History Father Colorectal cancer Social History Smoking Status: Never smoker Second Hand Exposure: No; Hx Alcohol Use: No Hx Substance Use: No Preferred Language: Monegasque Communication Ability: Effective Stripping Cutter And Winder Required: No Beliefs That Will Affect Care: None marital status: Current Living Situation: Spouse Feels Safe at Home: Yes Safety Concerns: Feels Safe At This Time Assistive Devices: Denture - Upper Review of Systems A total of 10 systems reviewed and were otherwise negative All systems reviewed & are unremarkable except as noted in HPI & below Physical Exam Vital Signs Vital Signs - 24 hr 02/23/22 10:21 02/23/22 12:58 02/23/22 13:03 Temperature 37.4 C Temperature Source Temporal Artery Scan Pulse Rate 86 Pulse Rate [Apical] 79 Pulse Rate from SpO2 Sensor Pulse Rhythm [Apical] Regular Pulse Strength [Apical] Normal Respiratory Rate 24 16 Respiratory Effort / Characteristics Non-Labored Spontaneous Respiratory Depth Normal Respiratory Pattern Blood Pressure 117/85 Blood Pressure [Left Arm] 140/94 Blood Pressure Mean 95 Blood Pressure Mean [Left Arm] 109 Pulse Oximetry 93 98 98 Oxygen Delivery Method Room Air Room Air Room Air Sepsis Recent Fever Within 48 Hours No Sepsis New/Unexplained Change in Mental Status N/A Sepsis Action Taken by Nursing No Action Required 02/23/22 13:00 02/23/22 13:04 02/23/22 13:04 Temperature Temperature Source Pulse Rate Pulse Rate [Apical] Pulse Rate from SpO2 Sensor Pulse Rhythm [Apical] Pulse Strength [Apical] Respiratory Rate 20 Respiratory Effort / Characteristics Non-Labored Spontaneous Non-Labored Spontaneous Respiratory Depth Normal Respiratory Pattern Regular Blood Pressure Blood Pressure [Left Arm] Blood Pressure Mean Blood Pressure Mean [Left Arm] Pulse Oximetry 98 98 Oxygen Delivery Method Room Air Room Air Room Air Sepsis Recent Fever Within 48 Hours Sepsis New/Unexplained Change in Mental Status Sepsis Action Taken by Nursing 02/23/22 12:45 02/23/22 13:00 Temperature Temperature Source Pulse Rate 78 75 Pulse Rate [Apical] Pulse Rate from SpO2 Sensor 77 76 Pulse Rhythm [Apical] Pulse Strength [Apical] Respiratory Rate 23 23 Respiratory Effort / Characteristics Respiratory Depth Respiratory Pattern Blood Pressure Blood Pressure [Left Arm] Blood Pressure Mean Blood Pressure Mean [Left Arm] Pulse Oximetry 95 99 Oxygen Delivery Method Sepsis Recent Fever Within 48 Hours Sepsis New/Unexplained Change in Mental Status Sepsis Action Taken by Nursing GENERAL: alert, well appearing, well nourished, no distress, non-toxic EYE EXAM: normal conjunctiva, PERRL and EOM's grossly intact OROPHARYNX: no exudate, no erythema, lips, buccal mucosa, and tongue normal and mucous membranes are moist NECK: supple, no nuchal rigidity, no adenopathy, non-tender LUNGS: Clear to auscultation. Normal chest wall mechanics, no w/r/r, decreased at b/l bases HEART: no murmurs, S1 normal and S2 normal, no alarm heard during exam, pacer/aicd noted left ant/sup chest wall ABDOMEN: abdomen soft, non-tender, normo-active bowel sounds, no masses, no rebound or guarding. BACK: Back is symmetrical on inspection and there is no deformity, no midline tenderness, no CVA tenderness. SKIN: no rashes and no bruising UPPER EXTREMITIES: upper extremities are grossly normal. FROM, nml pulses b/l. LOWER EXTREMITIES: 1+ b/l pitting edema. FROM, nml pulses b/l. NEURO EXAM: Normal sensorium, cranial nerves II-XII grossly intact, normal speech, no gross weakness of arms, no gross weakness of legs. Gross sensation intact. Course Course 1345: [employer] report showed patient did have an episode of ventricular tachycardia on 02/16/2022 at 0850 which was defibrillated. No other more recent abnormalities noted. Administered Medications Atorvastatin Calcium (Atorvastatin 40 Mg Tab) 40 mg PO HS XUAN Stop: 03/25/22 21:19 Last Admin: 02/23/22 22:47 Dose: 40 mg Documented By: KERRI Cefepime HCl 2,000 mg/ Syringe 20 mls @ 5 mls/min IV Q8H XUAN; Protocol Stop: 03/02/22 23:29 Last Admin: 02/23/22 23:55 Dose: 5 mls/min Documented By: JILLIAN Doxycycline Hyclate 100 mg/ (Dextrose) 110 mls @ 50 mls/hr IV Q12H XUAN Stop: 03/03/22 02:59 Last Infusion: 02/24/22 05:29 Dose: 0 mls/hr Documented By: Admin: 02/24/22 03:03 Dose: 50 mls/hr Documented By: JILLIAN Discontinued Medications Furosemide (Furosemide Inj 20 Mg/2 Ml Vial) 20 mg IV ONE ONE Stop: 02/23/22 13:26 Last Admin: 02/23/22 13:40 Dose: 20 mg Documented By: HS Cefepime HCl 2,000 mg/ Syringe 20 mls @ 5 mls/min IV NOW STA; Protocol Stop: 02/23/22 15:03 Last Admin: 02/23/22 15:52 Dose: 5 mls/min Documented By: KERRI Doxycycline Hyclate 100 mg/ (Dextrose) 110 mls @ 50 mls/hr IV NOW STA Stop: 02/23/22 17:12 Last Infusion: 02/23/22 22:48 Dose: 0 mls/hr Documented By: Admin: 02/23/22 15:47 Dose: 50 mls/hr Documented By: KERRI Ioversol (Optiray 320 500ml) 110 ml IV ONCE ONE Stop: 02/23/22 12:17 Last Admin: 02/23/22 12:16 Dose: 110 ml Documented By: [facility] Medical Decision Making Differential Diagnosis Differential diagnoses includes but is not limited to pneumonia, bronchitis, COPD/Asthma exacerbation, pneumothorax, pulmonary embolism, congestive heart failure, acute coronary syndrome Medical Records Attestation: I reviewed the patient's medical records. Home Medications Current Medication List: was personally reviewed by nd Laboratory Data Attestation: I reviewed the patient's lab results. Result diagrams: 02/24/22 06:04 02/24/22 06:04 Lab Results 02/23/22 02/23/22 02/23/22 Range/Units 11:03 11:03 11:03 WBC 9.17 (4.8-10.8) K/ul RBC 4.26 L (4.63-6.08) M/uL Hgb 13.5 L (14.0-18.0) g/dl Hct 40.6 (40.1-51.0) % MCV 95.3 (80.0-100.0) fL MCH 31.7 (25.0-34.0) pg MCHC 33.3 (32.0-36.0) g/dL RDW Std Deviation 59.3 H (36.4-46.3) fL RDW Coeff of Gertrudis 17.1 H (11.5-14.5) % Plt Count 314 (130-400) K/uL MPV 9.3 L (9.4-12.4) fL Immature Gran % (Auto) 1.1 % Neut % (Auto) 84.6 % Lymph % (Auto) 7.2 % [place] % (Auto) 6.9 % Eos % (Auto) 0.1 % Baso % (Auto) 0.1 % Neut # (Auto) 7.76 H (1.4-6.5) K/uL Lymph # (Auto) 0.66 L (1.2-3.4) K/uL [place] # (Auto) 0.63 (0.24-0.82) K/uL Eos # (Auto) 0.01 (0-0.50) K/uL Baso # (Auto) 0.01 (0-0.2) K/uL Immature Gran # (Auto) 0.10 H (0.00-0.02) K/uL Sodium 138 (136-145) mmol/L Potassium 3.9 (3.5-5.1) mmol/L Chloride 103 (98-107) mmol/L Carbon Dioxide 30 (21-32) mmol/L Anion Gap 5 (3-11) BUN 16 (6-23) mg/dl Creatinine 0.84 (0.6-1.4) mg/dl Est Cr Clr Drug Dosing 65.6 ml/min Est GFR ( Amer) 94.5 ml/min Est GFR (Non-Af Amer) 81.5 ml/min BUN/Creatinine Ratio 19.0 (10-20) Glucose 100 H (70-99(Fasting)) mg/dl Calcium 9.0 (8.5-10.1) mg/dl Magnesium 2.0 (1.7-2.4) mg/dl Total Bilirubin 1.0 (0.2-1.0) mg/dl AST 26 (13-39) U/L ALT 59 H (7-52) U/L Alkaline Phosphatase 80 (34-104) U/L Troponin I High Sens 42.4 H D (0-20) pg/ml B-Natriuretic Peptide (0-100) pg/ml Total Protein 6.2 (6.0-8.3) gm/dl Albumin 3.5 (3.4-5.0) gm/dl Globulin 2.7 (2.5-4.0) gm/dl Albumin/Globulin Ratio 1.3 (0.9-2) Procalcitonin < 0.05 (0-0.5) ng/ml 02/23/22 Range/Units 12:39 WBC (4.8-10.8) K/ul RBC (4.63-6.08) M/uL Hgb (14.0-18.0) g/dl Hct (40.1-51.0) % MCV (80.0-100.0) fL MCH (25.0-34.0) pg MCHC (32.0-36.0) g/dL RDW Std Deviation (36.4-46.3) fL RDW Coeff of Gertrudis (11.5-14.5) % Plt Count (130-400) K/uL MPV (9.4-12.4) fL Immature Gran % (Auto) % Neut % (Auto) % Lymph % (Auto) % [place] % (Auto) % Eos % (Auto) % Baso % (Auto) % Neut # (Auto) (1.4-6.5) K/uL Lymph # (Auto) (1.2-3.4) K/uL [place] # (Auto) (0.24-0.82) K/uL Eos # (Auto) (0-0.50) K/uL Baso # (Auto) (0-0.2) K/uL Immature Gran # (Auto) (0.00-0.02) K/uL Sodium (136-145) mmol/L Potassium (3.5-5.1) mmol/L Chloride (98-107) mmol/L Carbon Dioxide (21-32) mmol/L Anion Gap (3-11) BUN (6-23) mg/dl Creatinine (0.6-1.4) mg/dl Est Cr Clr Drug Dosing ml/min Est GFR ( Amer) ml/min Est GFR (Non-Af Amer) ml/min BUN/Creatinine Ratio (10-20) Glucose (70-99(Fasting)) mg/dl Calcium (8.5-10.1) mg/dl Magnesium (1.7-2.4) mg/dl Total Bilirubin (0.2-1.0) mg/dl AST (13-39) U/L ALT (7-52) U/L Alkaline Phosphatase (34-104) U/L Troponin I High Sens (0-20) pg/ml B-Natriuretic Peptide 2089 H (0-100) pg/ml Total Protein (6.0-8.3) gm/dl Albumin (3.4-5.0) gm/dl Globulin (2.5-4.0) gm/dl Albumin/Globulin Ratio (0.9-2) Procalcitonin (0-0.5) ng/ml Imaging Data Radiologist's Impression: Chest X-Ray 02/23/22 10:27 XR chest 1V portable HISTORY: 82 years-old Male SOB acute shortness of breath COMPARISON: 02/08/2022 TECHNIQUE: AP view of the chest FINDINGS: Cardiac silhouette is enlarged. Mild prominence of the thoracic aorta. Pulmonary vascular congestion with interstitial coarsening. Left subclavian pacer/AICD. No pneumothorax. Small layering pleural effusions with bibasilar consolidation. Degenerative changes of the shoulders and spine. Loose bodies of the right axillary recess. IMPRESSION: 1. Cardiomegaly with mild pulmonary edema. 2. Small pleural effusions with bibasilar consolidation. ACT 112: Negative or not required by law. The above report was generated using voice recognition software. It may contain grammatical, syntax or spelling errors. Electronically signed by: Jd Schaefer M.D. 02/23/2022 11:25 AM Chest CTA 02/23/22 12:07 CT angio chest PE protocol CT DOSE: 400.26 mGy.cm HISTORY: 82 years-old Male with PE. Acute shortness of breath with left-sided rib pain status post fall TECHNIQUE: Multiple CTA images of the chest were obtained after the intravenous administration of 110 ml Optiray. Coronal and sagittal MIPS were obtained from the axial data set and were submitted for review. All measurements were obtained according to NASCET criteria. A dose lowering technique was utilized adhering to the principles of ALARA. COMPARISON: Chest radiograph of same day, chest CT 01/22/2022 FINDINGS: CTA: Moderate to marked cardiomegaly. There is decreased size and attenuation of the previously described pericardial effusion, now measuring up to 9 mm, previously 2.1 cm. Left subclavian pacer. Extensive [place] coronary artery calcifications. Atherosclerosis of the thoracic aorta. Fusiform dilation of the ascending thoracic aorta measuring up to 4.2 x 4.2 cm at the level of the main pulmonary artery, unchanged from the prior study. The thoracic aorta is not opacified secondary to contrast bolus timing and therefore suboptimally dilated. No central pulmonary emboli are identified. The segmental and subsegmental pulmonary arterial branches within the lung bases are not opacified and therefore cannot be diagnostically evaluated. Apparent pulmonary arterial filling defects are noted within subsegmental branches of the upper lobes. CT CHEST: No thyroid nodule. Subcentimeter mediastinal and hilar lymph nodes are likely reactive. Moderate size layering pleural effusions have increased in size from the prior study. No pneumothorax. Mild intralobular septal thickening. Bibasilar mucous plugging. There is dependent atelectasis with additional patchy bibasilar predominant nodular consolidative opacities. Bronchial wall thickening. Tree-in-bud nodules of the lung bases. The previously described irregular opacity within the right middle lobe is not appreciated on today's study, likely was infectious or inflammatory. No acute process of the imaged upper abdomen. Mild generalized body wall edema. Right glenohumeral joint effusion with numerous loose bodies, likely on a degenerative basis. Healing subacute nondisplaced fracture of the anterior left fourth rib. IMPRESSION: 1. Limited evaluation of the pulmonary arterial tree secondary to contrast bolus timing and respiratory motion artifact. No central pulmonary emboli are identified. The segmental and subsegmental branches are not well evaluated, notably within the lung bases. As a precautionary measure, correlation with lower extremity Doppler recommended. 2. Cardiomegaly with decreased size and attenuation of the pericardial effusion/hemopericardium. 3. Pulmonary vascular congestion with moderate pleural effusions and mild dependent compressive bibasilar atelectasis. 4. Bibasilar mucous plugging with additional patchy tree-in-bud nodules and consolidative opacities, most pronounced within the right lung base. Findings are compatible with an infectious or inflammatory pneumonitis. Correlate clinically to exclude aspiration. 5. Healing subacute nondisplaced fracture of the anterior left fourth rib. 6. No pneumothorax. ACT 112: Negative or not required by law. The above report was generated using voice recognition software. It may contain grammatical, syntax or spelling errors. Electronically signed by: Jd Schaefer M.D. 02/23/2022 12:35 PM ECG Data Attestation: I personally reviewed and interpreted this ECG as follows: Indication: + SOB/dyspnea Rate (beats per minute): 76 Rhythm: + other ECG Intervals/blocks: + IVCD and + Normal QT ECG [place]: + Normal ECG ST segments: + Nonspecific ST abnormalities Additional Comments: paced MDM Narrative An order was placed for continuous cardiac monitoring. The monitor shows a rate of _72_ with _paced__ rhythm. This is an 82 yo male with significant cardiac history who presents with increased LUBIN, weakness, and shakiness. CXR without acute infiltrate or overt edema. Patient seen on a day of high volume and acuity while still in triage waiting area. Labs, ekg started per nurse protocol. No apparent distress while seated. VS stable and patient not requiring oxygen. Patient sent from triage for CT chest. He was eventually brought back to a room. Case discussed hospitalist for additional evaluation and mgmt. He was given an additional dose of lasix in the ER once he was placed in a room. I suspect elevated troponin secondary to component of CHF and not primary ACS. Pericardial effusion did appear decreased on CT imaging. No evidence of PE. Impression & Plan LUBIN (dyspnea on exertion), Elevated brain natriuretic peptide (BNP) level, Weakness, Elevated troponin, Closed rib fracture Discharge Plan Visit Data Chief Complaint: Shortness of Breath/Dyspnea Stated Complaint: SHORT OF BREATH ED Provider: Martha Ford Discharge Problem: LUBIN (dyspnea on exertion), Elevated brain natriuretic peptide (BNP) level, Weakness, Elevated troponin, Closed rib fracture Patient Disposition: Admitted As Inpatient Discharge Instructions Interventions: ED Discharge Assessment Last Done: 02/23/22 17:52
[2022-02-23 11:57] LABS: Albumin Globulin Ratio 1.3 (0.9-2); Albumin Level 3.5 gm/dl (3.4-5.0); Creatinine Clr Calc Pharmacy 65.6 ml/min; Est GFR (African American) 94.5 ml/min; Est GFR (Non-African American) 81.5 ml/min; Globulin 2.7 gm/dl (2.5-4.0); Potassium 3.9 mmol/L (3.5-5.1); Total Protein 6.2 gm/dl (6.0-8.3)
[2022-02-23] MEDS ORDERED: OPTIRAY 320 500ml IV ONE (12:16)
--- NOTE | 2022-02-23 12:36 | CT Scan Report ---
CT angio chest PE protocol CT DOSE: 400.26 mGy.cm HISTORY: 82 years-old Male with PE. Acute shortness of breath with left-sided rib pain status post fall TECHNIQUE: Multiple CTA images of the chest were obtained after the intravenous administration of 110 ml Optiray. Coronal and sagittal MIPS were obtained from the axial data set and were submitted for review. All measurements were obtained according to NASCET criteria. A dose lowering technique was u tilized adhering to the principles of ALARA. COMPARISON: Chest radiograph of same day, chest CT 01/22/2022 FINDINGS: CTA: Moderate to marked cardiomegaly. There is decreased size and attenuation of the previously described pericardial effusion, now measuring up to 9 mm, previously 2.1 cm. Left subclavian pacer. Extensive n ative coronary artery calcifications. Atherosclerosis of the thoracic aorta. Fusiform dilation of the ascending thoracic aorta measuring up to 4.2 x 4.2 cm at the level of the main pulmonary artery, unc hanged from the prior study. The thoracic aorta is not opacified secondary to contrast bolus timing a nd therefore suboptimally dilated. No central pulmonary emboli are identified. The segmental and subsegmental pulmonary arterial branche s within the lung bases are not opacified and therefore cannot be diagnostically evaluated. Apparent pulmonary arterial filling defects are noted within subsegmental branches of the upper lobes. CT CHEST: No thyroid nodule. Subcentimeter mediastinal and hilar lymph nodes are likely reactive. Moderate size layering pleural effusions have increased in size from the prior study. No pneumothorax. Mild intral obular septal thickening. Bibasilar mucous plugging. There is dependent atelectasis with additional p atchy bibasilar predominant nodular consolidative opacities. Bronchial wall thickening. Tree-in-bud n odules of the lung bases. The previously described irregular opacity within the right middle lobe is not appreciated on today's study, likely was infectious or inflammatory. No acute process of the imaged upper abdomen. Mild generalized body wall edema. Right glenohumeral guido int effusion with numerous loose bodies, likely on a degenerative basis. Healing subacute nondisplace d fracture of the anterior left fourth rib. IMPRESSION: 1. Limited evaluation of the pulmonary arterial tree secondary to contrast bolus timing and respirato ry motion artifact. No central pulmonary emboli are identified. The segmental and subsegmental branch es are not well evaluated, notably within the lung bases. As a precautionary measure, correlation wit h lower extremity Doppler recommended. 2. Cardiomegaly with decreased size and attenuation of the pericardial effusion/hemopericardium. 3. Pulmonary vascular congestion with moderate pleural effusions and mild dependent compressive bibas ilar atelectasis. 4. Bibasilar mucous plugging with additional patchy tree-in-bud nodules and consolidative opacities, most pronounced within the right lung base. Findings are compatible with an infectious or inflammator y pneumonitis. Correlate clinically to exclude aspiration. 5. Healing subacute nondisplaced fracture of the anterior left fourth rib. 6. No pneumothorax. ACT 112: Negative or not required by law. The above report was generated using voice recognition software. It may contain grammatical, syntax o r spelling errors. Electronically signed by: Jd Schaefer M.D. 02/23/2022 12:35 PM
[2022-02-23] MEDS ORDERED: FUROSEMIDE INJ 20 MG/2 ML VIAL IV ONE (13:25)
--- NOTE | 2022-02-23 13:41 | History & Physical Report ---
Date of Service February 23, 2022 Assessment & Plan (1) Acute on chronic heart 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: Plan: Has been complaining of more shortness of breath with orthopnea for the last few days Associated swelling of the legs as well Chest x-ray is compatible with CHF CTA did not show any pulmonary embolism Has been started with intravenous Lasix, daily weights, measure I's and O's Cardiology evaluation for further management Recent history of pericardial effusion(admitted on 01/26/2022) Finished a course of prednisone CTA did not show decreasing size of the effusion Await cardiology evaluation to determine if he needs echocardiogram while in the hospital (2) Presence of biventricular automatic cardioverter/defibrillator (AICD): Plan: History of nonischemic cardiomyopathy with EF 20 to 30% S/p AICD placement Has had 2 episodes of abnormal noise heart from the device without any significant symptoms experienced by the patient Device discharged as per the interrogation Cardiology evaluation for further evaluation and management (3) Pneumonia: Plan: Has had URI-like symptoms recently and was seen in the emergency room on 02/08/2022 and was given azithromycin which were changed to doxycycline Finish the course of doxycycline about 7 days before Weakness has been persistent and the shortness of breath has been ongoing Chest x-ray and CTA did show bibasilar pneumonia Will start intravenous cefepime and IV doxycycline (4) Paroxysmal atrial fibrillation: Plan: History paroxysmal atrial fibrillation S/p AICD/pacer placement and the heart rate is controlled (5) Nonischemic cardiomyopathy: Plan: As above DVT prophylaxis Anticoagulation has been on hold due to recent pericardial effusion likely hemorrhagic Will have SCDs for now until further evaluation by cardiology tomorrow CODE STATUS Full Plan Pt seen and reviewed with attending physician, Dr. Mendoza. Plan of care discus sed and as outlined above. Jostin Valencia PA-C History of Present Illness Chief Complaint: Increased trouble breathing Primary Care Provider: VIVIAN Stovall This is an 82 y/o male with a PMH of PAF, AC currently on hold due to presumed hemopericardium, nonischemic cardiomyopathy, hx sustained ventricular tachycardia now s/p AIDC placement, chronic systolic CHF, hx pleural effusion, nonobstructive CAD, HTN, RBBB, BPH, hx [place] syncope, and recent pericardial effusion treated with four weeks of prednisone who presented to the ED today with worsening LUBIN and orthopnea. Pt was admitted to this facility 01/22-01/26/22 with weakness, found to have a moderate to large sized pericardial effusion. Started on steroids as colchicine would have interacted with pt's amiodarone. After discharge, pt developed cold symptoms with cough, congestion, rhinorrhea. Seen in the ED on 02/08/22 for increased edema in LE and these cold symptoms. He was diagnosed with bronchitis and started on azithromycin. Cardiology changed this to doxycycline. His diuretics were adjusted to furosemide 20 mg QOD to help with edema although some of the swelling was attributed to the steroids. Pt reports that the doxycycline seemed to help with the cough and congestion but over the last few days he has noted increasing LUBIN and orthopnea. His daughter noticed a 3 lb wt gain as well so she changed his diuretics to 20 mg daily for the last three days. Pt felt worse last night so they came for evaluation this morning. Pt denies fevers, chills, N/V, change in bowel habits. He notes urinary frequency, which he relates to the diuretics. He denies chest pain, SCHUSTER, syncope. He does report two falls in the last month, one of which was during his last admission. Pt's daughter also reports that pt's ICD alarm has been going off intermittently. Device was interrogated and showed that pt had an episode of VT that was shocked with termination of the arrhythmia. Allergies Allergy/AdvReac Type Severity Reaction Status Date / Time amoxicillin Allergy Intermediate Hives Verified 01/21/22 21:55 sulfamethoxazole Allergy Mild Unknown Verified 01/23/22 15:30 [From Bactrim] trimethoprim [From Bactrim] Allergy Mild Unknown Verified 01/23/22 15:30 Home Medications Medication Instructions Recorded Confirmed Type atorvastatin 40 mg tablet (Lipitor) 40 mg PO HS #30 tabs 07/26/21 02/23/22 Rx amiodarone 200 mg tablet 200 mg PO QAM 10/17/21 02/23/22 History finasteride 5 mg tablet (Proscar) 5 mg PO QAM #90 tabs 11/04/21 02/23/22 Rx escitalopram oxalate 5 mg tablet 5 mg PO HS 01/22/22 02/23/22 History metoprolol succinate 50 mg 50 mg PO QAM 30 days #30 tabs 01/26/22 02/23/22 Rx tablet,extended release 24 hr furosemide 20 mg tablet 20 mg PO DIRECTED 02/23/22 02/23/22 History Past Med/Surg History Medical History (Updated 02/23/22 @ 17:15 by Destiney Mendoza MD) Atrial fibrillation, new onset Dx June 2021 > digoxin, Coumadin > follows with Dr. Sim > pacemaker BPH (benign prostatic hyperplasia) CAD (coronary artery disease) Per cardio records- mild nonobstructive CAD (20% ostial LM, 25% mid LAD, ectatic LCX with 20% proximal stenosis and a 30% distal stenosis, 30% mid RCA), normal intracardiac filling pressure. History of COVID-16 Mar 2020 > "never tested", not hospitalized, "bad cold symptoms">resolved. Hx of basal cell carcinoma "Nose, back, chest" Hyperlipidemia Hypertension Nonischemic cardiomyopathy EF 20-30% S/p pacer/ICD placement Pacemaker Pacemaker/ACID. Placed 06/2021 [facility] > [employer] Pericardial effusion RBBB Stroke Approx 7 yrs ago > no residual effects, mild stroke per pt > no neuro Ventricular tachycardia Pacemaker/ICD in place Surgical History History of cardiac cath 06/2021 > [facility] > no stents; f/u Dr. Sim History of colonoscopy History of tooth extraction Family History Father Colorectal cancer Social History Smoking Status: Never smoker Second Hand Exposure: No; Hx Alcohol Use: No Hx Substance Use: No Preferred Language: Tajik Communication Ability: Effective Feather Maker Required: No Beliefs That Will Affect Care: None marital status: Current Living Situation: Spouse Feels Safe at Home: Yes Assistive Devices: None Review of Systems Review of Systems: All systems reviewed & are unremarkable except as noted in HPI & below Constitutional: + fatigue; no fever and no chills Eyes: no diplopia Ear, Nose, Mouth, Throat: no nasal congestion and no sore throat Respiratory: + dyspnea on exertion; no cough Cardiovascular: + orthopnea and + edema; no chest pain, no paroxysmal nocturnal dyspnea and no palpitations Gastrointestinal: no nausea, no vomiting and no change in bowel habits Genitourinary: + urinary frequency; no dysuria Musculoskeletal: no back pain and no neck pain Integumentary: no yellowing of the skin Neurologic: + falls and + generalized weakness; no syncope and no headache(s) Physical Exam Constitutional: + frail appearing; no acute distress Eyes: + anicteric sclerae Neck: trachea midline Respiratory: no respiratory distress and no labored breathing Auscultation: + crackles (right > left basilar); no wheezes Cardiovascular: Rate/Rhythm: regular rate and regular rhythm Heart Sounds: + murmur Vessels: radial pulses present Extremities: + pedal edema (2+) Gastrointestinal (Abdomen): Inspection/Auscultation: normal bowel sounds; abdomen not distended Percussion/Palpation: abdomen soft; abdomen nontender Skin: fading ecchymosis left periorbital area Neurologic: moves all extremities; no focal motor deficits Psychiatric: A+Ox3, euthymic affect Results & Data Results & Data ([facility]) Vital Signs (Past 12 Hours) Vital Signs Temp Pulse Pulse Resp BP BP Pulse Ox 02/23/22 13:04 98 02/23/22 13:04 02/23/22 13:00 20 98 02/23/22 13:03 79 16 140/94 98 02/23/22 12:58 98 02/23/22 10:21 37.4 C 86 24 117/85 93 O2 Del Method 02/23/22 13:04 Room Air 02/23/22 13:04 Room Air 02/23/22 13:00 Room Air 02/23/22 13:03 Room Air 02/23/22 12:58 Room Air 02/23/22 10:21 Room Air Laboratory Results Laboratory Results - last 24 hr 02/23/22 02/23/22 02/23/22 11:03 11:03 11:03 WBC 9.17 RBC 4.26 L Hgb 13.5 L Hct 40.6 MCV 95.3 MCH 31.7 MCHC 33.3 RDW Std Deviation 59.3 H RDW Coeff of Gertrudis 17.1 H Plt Count 314 MPV 9.3 L Immature Gran % (Auto) 1.1 Neut % (Auto) 84.6 Lymph % (Auto) 7.2 [place] % (Auto) 6.9 Eos % (Auto) 0.1 Baso % (Auto) 0.1 Neut # (Auto) 7.76 H Lymph # (Auto) 0.66 L [place] # (Auto) 0.63 Eos # (Auto) 0.01 Baso # (Auto) 0.01 Immature Gran # (Auto) 0.10 H Sodium 138 Potassium 3.9 Chloride 103 Carbon Dioxide 30 Anion Gap 5 BUN 16 Creatinine 0.84 Est Cr Clr Drug Dosing 65.6 Est GFR ( Amer) 94.5 Est GFR (Non-Af Amer) 81.5 BUN/Creatinine Ratio 19.0 Glucose 100 H Calcium 9.0 Magnesium 2.0 Total Bilirubin 1.0 AST 26 ALT 59 H Alkaline Phosphatase 80 Troponin I High Sens 42.4 H D B-Natriuretic Peptide Total Protein 6.2 Albumin 3.5 Globulin 2.7 Albumin/Globulin Ratio 1.3 Procalcitonin < 0.05 02/23/22 12:39 WBC RBC Hgb Hct MCV MCH MCHC RDW Std Deviation RDW Coeff of Gertrudis Plt Count MPV Immature Gran % (Auto) Neut % (Auto) Lymph % (Auto) [place] % (Auto) Eos % (Auto) Baso % (Auto) Neut # (Auto) Lymph # (Auto) [place] # (Auto) Eos # (Auto) Baso # (Auto) Immature Gran # (Auto) Sodium Potassium Chloride Carbon Dioxide Anion Gap BUN Creatinine Est Cr Clr Drug Dosing Est GFR ( Amer) Est GFR (Non-Af Amer) BUN/Creatinine Ratio Glucose Calcium Magnesium Total Bilirubin AST ALT Alkaline Phosphatase Troponin I High Sens B-Natriuretic Peptide 2089 H Total Protein Albumin Globulin Albumin/Globulin Ratio Procalcitonin Diagnostic Findings Chest X-ray 02/23/22 - IMPRESSION: 1. Cardiomegaly with mild pulmonary edema. 2. Small pleural effusions with bibasilar consolidation. CTA Chest 02/23/22 - IMPRESSION:1. Limited evaluation of the pulmonary arterial tree secondary to contrast bolus timing and respiratory motion artifact. No central pulmonary emboli are identified. The segmental and subsegmental branches are not well evaluated, notably within the lung bases. As a precautionary measure, correlation with lower extremity Doppler recommended. 2. Cardiomegaly with decreased size and attenuation of the pericardial effusion/hemopericardium. 3. Pulmonary vascular congestion with moderate pleural effusions and mild dependent compressive bibasilar atelectasis. 4. Bibasilar mucous plugging with additional patchy tree-in-bud nodules and consolidative opacities, most pronounced within the right lung base. Findings are compatible with an infectious or inflammatory pneumonitis. Correlate clinically to exclude aspiration. 5. Healing subacute nondisplaced fracture of the anterior left fourth rib. 6. No pneumothorax. Medications Administered Discontinued Medications Furosemide (Furosemide Inj 20 Mg/2 Ml Vial) 20 mg IV ONE ONE Stop: 02/23/22 13:26 Last Admin: 02/23/22 13:40 Dose: 20 mg Documented By: HS Ioversol (Optiray 320 500ml) 110 ml IV ONCE ONE Stop: 02/23/22 12:17 Last Admin: 02/23/22 12:16 Dose: 110 ml Documented By: [facility] Supervising Physician Co-Signing Physician Notes Attending addendum The patient was seen and examined in emergency room in presence of the daughter He has been complaining of weakness, shortness of breath with exertion and orthopnea with recent history of respiratory infection and is status post completion of doxycycline 7 days before Denies any chest pain and/or palpitation but has had episodes of strange noises x2 associated with the pacemaker On examination Anxious but otherwise hemodynamically stable Chest-bibasilar crackles Heart-S1-S2. 2/6 ESM Abdomen-benign Extremities-2+ edema bilaterally His labs, EKG and imaging studies reviewed Assessment and plan as mentioned above Agree with assessment and plan as done by IAM Byrne Dr
[2022-02-23] MEDS ORDERED: CEFEPIME 2,000 MG in SYRINGE 0 ML IV STA (15:00)
[2022-02-23] MEDS ORDERED: DOXYCYCLINE HYCLATE 100 MG in DEXTROSE 5% 100 ML IV STA (15:01)
[2022-02-23 15:12] LABS: Influenza A virus by PCR Negative (Neg); Influenza B virus by PCR Negative (Neg); SARS CoV2 RNA(COVID-19) Ceph NEGATIVE (Negative)
[2022-02-23 15:24] LABS: RSV by PCR Positive (Neg)
--- NOTE | 2022-02-23 19:34 | Electrocardiogram Report ---
Test Reason : Blood Pressure : / mmHG Vent. Rate : 076 BPM Atrial Rate : 416 BPM P-R Int : 000 ms QRS Dur : 124 ms QT Int : 374 ms P-R-T Axes : 199 088 241 degrees QTc Int : 420 ms Poor data quality, interpretation may be adversely affected Ventricular-paced rhythm Abnormal ECG When compared with ECG of 08-FEB-2022 12:09, Vent. rate has increased BY 5 BPM Confirmed by Heath Wagner ([id number]) on 02/23/2022 7:34:14 PM Referred By: ED Confirmed By:Raphael Wagner
[2022-02-23] MEDS: ATORVASTATIN 40 MG TAB PO SCH (22:47)
[2022-02-23] MEDS: CEFEPIME 2,000 MG in SYRINGE 0 ML IV SCH (23:55)
[2022-02-24] MEDS ORDERED: DOXYCYCLINE HYCLATE 100 MG in DEXTROSE 5% 100 ML IV SCH (03:00)
[2022-02-24 06:42] LABS: Basophils # (auto) 0.03 K/uL (0-0.2); Basophils % (auto) 0.3 %; Eosinophils # (auto) 0.01 K/uL (0-0.50); Eosinophils % (auto) 0.1 %; Hematocrit (blood only) 39.3 % (40.1-51.0); Hemoglobin 13.1 g/dl (14.0-18.0); Immature Granulocytes # (auto) 0.14 K/uL (0.00-0.02); Immature Granulocytes % (auto) 1.4 %; Lymphocytes # (auto) 0.97 K/uL (1.2-3.4); Lymphocytes % (auto) 9.9 %; Mean Corpuscular Hemoglobin 31.9 pg (25.0-34.0); Mean Corpuscular Hgb Conc 33.3 g/dL (32.0-36.0); Mean Corpuscular Volume 95.6 fL (80.0-100.0); Mean Platelet Volume 9.2 fL (9.4-12.4); Monocytes # (auto) 0.76 K/uL (0.24-0.82); Monocytes % (auto) 7.7 %; Neutrophils # (auto) 7.91 K/uL (1.4-6.5); Neutrophils % (auto) 80.6 %; Platelet Count 319 K/uL (130-400); RDW Coefficient of Variation 16.9 % (11.5-14.5); RDW Standard Deviation 58.8 fL (36.4-46.3); Red Blood Count 4.11 M/uL (4.63-6.08); White Blood Count 9.82 K/ul (4.8-10.8)
[2022-02-24 07:06] LABS: BUN Creatinine Ratio 19.1 (10-20); Calcium 8.7 mg/dl (8.5-10.1); Creatinine Clr Calc Pharmacy 61.9 ml/min; Est GFR (African American) 92.3 ml/min; Est GFR (Non-African American) 79.6 ml/min; Potassium 3.8 mmol/L (3.5-5.1)
[2022-02-24] MEDS ORDERED: AMIODARONE 200 MG TAB PO SCH (09:00)
[2022-02-24] MEDS ORDERED: FUROSEMIDE INJ 20 MG/2 ML VIAL IV SCH (09:00)
[2022-02-24] MEDS: FINASTERIDE 5 MG TAB PO SCH (09:08)
[2022-02-24] MEDS: METOPROLOL SUCC 50MG EXT REL TAB PO SCH (09:08)
[2022-02-24] MEDS: CEFEPIME 2,000 MG in SYRINGE 0 ML IV SCH ×3 (10:08→21:06)
--- NOTE | 2022-02-24 11:42 | Cardiology Consultation ---
Date of Consultation February 24, 2022 Assessment & Plan (1) Acute on chronic heart 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: (2) Sustained VT (ventricular tachycardia): (3) Pleural effusion, bilateral: (4) Pericardial effusion: (5) Paroxysmal atrial fibrillation: (6) RSV (respiratory syncytial virus infection): Plan 82-year-old patient admitted with acute on chronic decompensated heart failure with reduced ejection fraction and RSV infection. Left ventricular ejection fraction 25% per most recent echocardiogram as noted above. Clinically improved with IV diuretic therapy. Recommend titration of IV furosemide to 20 mg twice daily. Add spironolactone 12.5 mg daily. Follow daily weight, fluid balance, GFR, and electrolytes. Recent ICD defibrillation shock 02/16/2022 secondary to ventricular tachycardia. Titrate amiodarone to 200 mg twice daily. Continue metoprolol succinate. Pericardial effusion treated with 4-week course of corticosteroids. Patient was not treated with colchicine. Most recent echocardiogram result listed above. History of paroxysmal atrial fibrillation rhythm controlled with amiodarone. Anticoagulation discontinued recently by primary outpatient batch heat treat operator due to concerns regarding hemopericardium. Will discuss candidacy for long-term anticoagulation. History of Present Illness Reason for Consultation: CHF Requesting Physician: Dr. Haq Attending Physician: Destiney Mendoza MD History of Present Illness 82-year-old patient presents to the emergency department with 3 days of progressive shortness of breath. Daughter present at bedside. Notes approximate 15 pound weight gain. Patient treated with every other day furosemide. Recently treated with a 4-week prednisone taper due to pericardial effusion. Chronically treated with anticoagulation, however, warfarin on hold during prednisone taper. Patient treated with IV antibiotics and furosemide in the ER. Fluid balance negative over 3 L. He is feeling much better from a respiratory perspective. Telemetry reveals atrial paced rhythm. Daughter voices concern regarding recent AICD audible tones. Preliminary review of interrogation reports and ICD shock for a period of ventricular tachycardia on February 16. Patient adamantly denies any symptoms on that date. Antitachycardia pacing was unsuccessful with subsequent successful defibrillation shock. Allergies Allergy/AdvReac Type Severity Reaction Status Date / Time amoxicillin Allergy Intermediate Hives Verified 01/21/22 21:55 sulfamethoxazole Allergy Mild Unknown Verified 01/23/22 15:30 [From Bactrim] trimethoprim [From Bactrim] Allergy Mild Unknown Verified 01/23/22 15:30 Home Medications Medication Instructions Recorded Confirmed Type atorvastatin 40 mg tablet (Lipitor) 40 mg PO HS #30 tabs 07/26/21 02/23/22 Rx amiodarone 200 mg tablet 200 mg PO QAM 10/17/21 02/23/22 History finasteride 5 mg tablet (Proscar) 5 mg PO QAM #90 tabs 11/04/21 02/23/22 Rx escitalopram oxalate 5 mg tablet 5 mg PO HS 01/22/22 02/23/22 History metoprolol succinate 50 mg 50 mg PO QAM 30 days #30 tabs 01/26/22 02/23/22 Rx tablet,extended release 24 hr furosemide 20 mg tablet 20 mg PO DIRECTED 02/23/22 02/23/22 History Patient History Medical History Atrial fibrillation, new onset Dx June 2021 > digoxin, Coumadin > follows with Dr. Sim > pacemaker BPH (benign prostatic hyperplasia) CAD (coronary artery disease) Per cardio records- mild nonobstructive CAD (20% ostial LM, 25% mid LAD, ectatic LCX with 20% proximal stenosis and a 30% distal stenosis, 30% mid RCA), normal intracardiac filling pressure. History of COVID-16 Mar 2020 > "never tested", not hospitalized, "bad cold symptoms">resolved. Hx of basal cell carcinoma "Nose, back, chest" Hyperlipidemia Hypertension Nonischemic cardiomyopathy EF 20-30% S/p pacer/ICD placement Pacemaker Pacemaker/ACID. Placed 06/2021 [facility] > [employer] Pericardial effusion RBBB Stroke Approx 7 yrs ago > no residual effects, mild stroke per pt > no neuro Ventricular tachycardia Pacemaker/ICD in place Surgical History History of cardiac cath 06/2021 > [place] > no stents; f/u Dr. Sim History of colonoscopy History of tooth extraction Family History Father Colorectal cancer Social History Smoking Status: Never smoker Second Hand Exposure: No; Hx Alcohol Use: No Hx Substance Use: No Preferred Language: Armenian Communication Ability: Effective Informatica Architect Required: No Beliefs That Will Affect Care: None marital status: Current Living Situation: Spouse Feels Safe at Home: Yes Safety Concerns: Feels Safe At This Time Assistive Devices: Denture - Upper Review of Systems Review of Systems: All systems reviewed & are unremarkable except as noted in Subjective Results & Data ([facility]) Vital Signs (Past 12 Hours) Vital Signs Pulse Pulse Resp BP Pulse Ox O2 Del Method 02/24/22 05:51 70 16 129/90 94 Room Air 02/24/22 00:00 95 H 71 16 111/74 96 Room Air Diagnostic Findings Limited 2D echo report 02/02/2022: There is a small to moderate-sized circumferential pericardial effusion with noted fibrinous strands. The most significant amount of focal fluid collection is adjacent to the right ventricular free wall, observed in the subcostal images. Cardiac tamponade is absent. A moderate left plerual effusion is present. Qualitative LV ejection Fraction = 25%. The estimated pulmonary artery systolic pressure is 60 mm Hg (moderately elevated). Compared to the prior study performed at [facility] on 01/22/22, there size is the pericardial effusion has improved. A moderate left pleural effusion is now present. Compared to the prior study perofrmed at [facility] on 10/24/21, a small circuferential pericardial effusion was noted then along with an estimated PA systolic pressure of 49 mm Hg.
[2022-02-24] MEDS: ACETAMINOPHEN 500 MG TAB PO PRN (14:26)
[2022-02-24] MEDS: SPIRONOLACTONE 12.5 MG TAB PO SCH (15:31)
--- NOTE | 2022-02-24 16:35 | Hospitalist Progress Note ---
Date of Service February 24, 2022 Assessment & Plan (1) Acute on chronic heart 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: Plan: Has been complaining of more shortness of breath with orthopnea for the last few days Associated swelling of the legs as well Chest x-ray is compatible with CHF CTA did not show any pulmonary embolism Has been started with intravenous Lasix, daily weights, measure I's and O's Appreciate cardiology input and recommendation Has been started with furosemide 20 mg twice daily and also spironolactone 12.5 mg daily Recent history of pericardial effusion(admitted on 01/26/2022) Finished a course of prednisone CTA did not show decreasing size of the effusion Await cardiology evaluation to determine if he needs echocardiogram while in the hospital (2) Presence of biventricular automatic cardioverter/defibrillator (AICD): Plan: History of nonischemic cardiomyopathy with EF 20 to 30% S/p AICD placement Has had 2 episodes of abnormal noise heart from the device without any significant symptoms experienced by the patient Device discharged as per the interrogation Appreciate cardiology input and dose of amiodarone has been increased to 200 mg twice daily and will continue metoprolol succinate (3) Pneumonia: Plan: Has had URI-like symptoms recently and was seen in the emergency room on 02/08/2022 and was given azithromycin which were changed to doxycycline Finish the course of doxycycline about 7 days before Weakness has been persistent and the shortness of breath has been ongoing Chest x-ray and CTA did show bibasilar pneumonia Will start intravenous cefepime and IV doxycycline The respiratory panel came back positive for RSV-recently finished a course of doxycycline as an outpatient We will discontinue doxycycline and continue with intravenous cefepime with a plan to change to oral cefdinir on discharge to finish the course for about 7 days in total (4) Paroxysmal atrial fibrillation: Plan: History paroxysmal atrial fibrillation S/p AICD/pacer placement and the heart rate is controlled Amiodarone dose has been increased to control arrhythmias (5) Nonischemic cardiomyopathy: Plan: As above DVT prophylaxis Anticoagulation has been on hold due to recent pericardial effusion likely hemorrhagic Will have SCDs for now until further evaluation by cardiology tomorrow CODE STATUS Full Admission and Anticipated Discharge Date Admission Date: February 23, 2022 Subjective 02/24/2022 The patient was seen and examined in telemetry unit He has been feeling much better Does not have any cough and he still complains shortness of breath with exertion Swelling of the legs has been improving No more firing of the ICD Review of Systems Review of Systems: All systems reviewed and are unremarkable except as noted below Physical Exam Physical Exam: Sitting on a chair without any acute distress Constitutional: + ill appearing and average body habitus Eyes: PERRL, conjunctivae normal, anicteric sclerae ENMT: external ear and nose normal, oropharynx normal Neck: trachea midline, no thyromegaly Respiratory: no respiratory distress Auscultation: + diminished lung sounds and + crackles (Minimal crackles by basally) Cardiovascular: Rate/Rhythm: regular rate and regular rhythm; not tachycardic Heart Sounds: normal S1, normal S2 and + murmur (2/6 ESM over precordium) Extremities: + edema (1+ edema bilaterally) Gastrointestinal (Abdomen): Inspection/Auscultation: normal bowel sounds; abdomen not distended Percussion/Palpation: abdomen soft; abdomen nontender Musculoskeletal: No acute arthritis involving any joint Neurologic: normal touch/pain/proprioception and moves all extremities; no focal motor deficits Psychiatric: A+Ox3, euthymic affect Lymphatic: no cervical or axillary lymphadenopathy Results & Data Results & Data ([facility]) Vital Signs (Past 12 Hours) Vital Signs Temp Pulse Resp BP Pulse Ox O2 Del Method 02/24/22 12:00 Room Air 02/24/22 12:00 36.8 C 80 18 132/78 98 Room Air 02/24/22 05:51 70 16 129/90 94 Room Air Laboratory Results Short CBC 02/24/22 Range/Units 06:04 WBC 9.82 (4.8-10.8) K/ul Hgb 13.1 L (14.0-18.0) g/dl Hct 39.3 L (40.1-51.0) % Plt Count 319 (130-400) K/uL BMP 02/24/22 06:04 Sodium 137 Potassium 3.8 Chloride 101 Carbon Dioxide 32 BUN 17 Creatinine 0.89 Glucose 84 Calcium 8.7 Medications Administered Current Inpatient Medications Acetaminophen (Acetaminophen 500 Mg Tab) 1,000 mg PO Q8H PRN PRN Reason: Pain Stop: 03/26/22 13:35 Last Admin: 02/24/22 14:26 Dose: 1,000 mg Amiodarone HCl (Amiodarone 200 Mg Tab) 200 mg PO QAM [facility] Stop: 03/26/22 08:59 Last Admin: 02/24/22 09:07 Dose: 200 mg Atorvastatin Calcium (Atorvastatin 40 Mg Tab) 40 mg PO HS [facility] Stop: 03/25/22 21:19 Last Admin: 02/23/22 22:47 Dose: 40 mg Escitalopram Oxalate (Escitalopram Oxalate 10 Mg Tab) 5 mg PO HS [facility] Stop: 03/26/22 20:59 Finasteride (Finasteride 5 Mg Tab) 5 mg PO QAM [facility] Stop: 03/26/22 08:59 Last Admin: 02/24/22 09:08 Dose: 5 mg Furosemide (Furosemide Inj 20 Mg/2 Ml Vial) 20 mg IV BID@0800,1800 [facility] Stop: 03/26/22 17:59 Cefepime HCl 2,000 mg/ Syringe 20 mls @ 5 mls/min IV Q8H [facility]; Protocol Stop: 03/02/22 23:29 Last Admin: 02/24/22 15:31 Dose: 5 mls/min Metoprolol Succinate (Metoprolol Succ 50mg Ext Rel Tab) [facility] [place] [place] Stop: 03/26/22 08:59 Last Admin: 02/24/22 09:08 Dose: 50 mg Spironolactone (Spironolactone 12.5 Mg Tab) 12.5 mg PO DAILY [facility] Stop: 03/26/22 11:59 Last Admin: 02/24/22 15:31 Dose: 12.5 mg
[2022-02-24] MEDS: FUROSEMIDE INJ 20 MG/2 ML VIAL IV SCH (18:27)
[2022-02-24] MEDS: AMIODARONE 200 MG TAB PO SCH (21:01)
[2022-02-24] MEDS: ESCITALOPRAM OXALATE 10 MG TAB PO SCH (21:05)
[2022-02-24] MEDS: ATORVASTATIN 40 MG TAB PO SCH (21:06)
[2022-02-25 06:56] LABS: Basophils # (auto) 0.02 K/uL (0-0.2); Basophils % (auto) 0.2 %; Eosinophils # (auto) 0.01 K/uL (0-0.50); Eosinophils % (auto) 0.1 %; Hematocrit (blood only) 35.4 % (40.1-51.0); Hemoglobin 11.9 g/dl (14.0-18.0); Immature Granulocytes # (auto) 0.09 K/uL (0.00-0.02); Lymphocytes # (auto) 0.78 K/uL (1.2-3.4); Mean Corpuscular Hemoglobin 31.5 pg (25.0-34.0); Mean Corpuscular Hgb Conc 33.6 g/dL (32.0-36.0); Mean Corpuscular Volume 93.7 fL (80.0-100.0); Mean Platelet Volume 9.2 fL (9.4-12.4); Monocytes # (auto) 0.72 K/uL (0.24-0.82); Monocytes % (auto) 8.3 %; Neutrophils # (auto) 7.04 K/uL (1.4-6.5); Neutrophils % (auto) 81.4 %; Platelet Count 265 K/uL (130-400); RDW Coefficient of Variation 16.4 % (11.5-14.5); RDW Standard Deviation 56.5 fL (36.4-46.3); Red Blood Count 3.78 M/uL (4.63-6.08); White Blood Count 8.66 K/ul (4.8-10.8)
[2022-02-25 07:25] LABS: BUN Creatinine Ratio 22.2 (10-20); Calcium 8.2 mg/dl (8.5-10.1); Creatinine Clr Calc Pharmacy 61.2 ml/min; Est GFR (African American) 91.9 ml/min; Est GFR (Non-African American) 79.3 ml/min; Magnesium 1.9 mg/dl (1.7-2.4); Potassium 3.5 mmol/L (3.5-5.1)
[2022-02-25] MEDS: CEFEPIME 2,000 MG in SYRINGE 0 ML IV SCH ×3 (07:57→22:39)
[2022-02-25] MEDS: FUROSEMIDE INJ 20 MG/2 ML VIAL IV SCH ×2 (07:59→18:28)
[2022-02-25] MEDS: FINASTERIDE 5 MG TAB PO SCH (08:00)
[2022-02-25] MEDS: AMIODARONE 200 MG TAB PO SCH ×2 (08:01→19:34)
[2022-02-25] MEDS: SPIRONOLACTONE 12.5 MG TAB PO SCH (08:01)
[2022-02-25] MEDS: METOPROLOL SUCC 50MG EXT REL TAB PO SCH (08:01)
[2022-02-25] MEDS ORDERED: POTASSIUM CHLORIDE CRTAB 20 MEQ TABCR PO STA (09:29)
--- NOTE | 2022-02-25 11:51 | Cardiology Progress Note ---
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 Left ventricular ejection fraction 25% per most recent echocardiogram. Clinically improving with IV diuretic therapy. Inaccurate fluid balance due to bathroom privileges. Recommend continuing furosemide 20 mg IV twice daily in addition to low-dose spironolactone. Amiodarone increased to 200 mg twice daily due to recent ICD shock 02/16/2022. Telemetry reveals AV paced rhythm without recurrent dysrhythmia. Pericardial effusion treated with 4-week course of corticosteroids. Patient was not treated with colchicine. Most recent echocardiogram result listed above. History of paroxysmal atrial fibrillation rhythm controlled with amiodarone. Anticoagulation discontinued recently by primary outpatient retail service lead merchandiser due to concerns regarding hemopericardium. No recurrent atrial fibrillation per ICD interrogation. Discussed with outpatient retail service lead merchandiser. Will continue observation off anticoagulation for the time being, however, consideration for restarting warfarin with evidence of recurrent atrial fibrillation on follow-up ICD interrogations. Admission and Anticipated Discharge Date Admission Date: February 23, 2022 Subjective Patient seen examined the bedside. Feeling better today. Fluid balance not accurately measured to the bathroom privileges. Telemetry reveals AV paced rhythm. Droplet precautions due to RSV infection. Denies chest pain or palpitations. No lightheadedness or dizziness. Review of Systems Review of Systems: All systems reviewed & are unremarkable except as noted in Subjective Physical Exam Constitutional: well nourished and + ill appearing Respiratory: no respiratory distress, no labored breathing and no retractions Auscultation: + diminished lung sounds (Bases bilateral) and + rales (Bases bilateral); no rhonchi and no wheezes Cardiovascular: Rate/Rhythm: regular rate and regular rhythm Heart Sounds: normal S1 and normal S2; no murmur Vessels: radial pulses present; no JVD and no carotid bruit Extremities: + edema (Trace pedal edema) Gastrointestinal (Abdomen): Inspection/Auscultation: normal bowel sounds; abdomen not distended Percussion/Palpation: abdomen soft; abdomen nontender, no guarding and abdomen not rigid Neurologic: CN's II-XI intact bilaterally and moves all extremities; no focal motor deficits Results & Data ([facility]) Vital Signs (Past 12 Hours) Vital Signs Temp Pulse Resp BP Pulse Ox O2 Del Method 02/25/22 11:45 36.5 C 72 19 119/77 94 Room Air 02/25/22 07:39 36.8 C 77 18 133/78 96 Room Air 02/25/22 03:19 36.9 C 72 18 120/71 95 Room Air
--- NOTE | 2022-02-25 16:01 | Hospitalist Progress Note ---
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 Admitting Chest x-ray is compatible with CHF; Admitting BNP elevated at 2088. Admitting CTA did not show any pulmonary embolism On diuresis per cardio, daily weights, measure I's and O's Appreciate cardiology input and recommendation Has been started with furosemide 20 mg iv twice daily and also spironolactone 12.5 mg daily Recent history of pericardial effusion (admitted on 01/26/2022): was Rxed w/ steroid x 4 weeks; not colchicine. Admitting CTA chest w/ decreased pericardial effusion. Cardio on board. Presence of biventricular automatic cardioverter/defibrillator (AICD): History of nonischemic cardiomyopathy with EF 20 to 30%, S/p AICD placement Has had 2 episodes of abnormal noise heard from the device without any significant symptoms experienced by the patient, Device discharged 02/16/22 as per the interrogation Appreciate cardiology input and dose of amiodarone has been increased to 200 mg twice daily and will continue metoprolol succinate Likely Pneumonia: RSV Has had URI-like symptoms recently and was seen in the emergency room on 02/08/2022 and was given azithromycin which were changed to doxycycline which he completed the course. Weakness has been persistent and the shortness of breath has been ongoing Admitting Chest x-ray and CTA did show bibasilar pneumonia. C/w cefepime 02/23. to PO cefdinir on DC. total of 7 days. Paroxysmal atrial fibrillation: History paroxysmal atrial fibrillation S/p AICD/pacer placement and the heart rate is controlled Amiodarone dose has been increased to control arrhythmias Recently anticoagulation dc'd by cardio as OP, pt will need close f/u cardio regarding Anticoagulation need. Other chronic medical conditions: Nonischemic cardiomyopathy --> resume home meds as able. DVT prophylaxis: Anticoagulation has been on hold due to recent pericardial effusion likely hemorrhagic, Will have SCDs for now. CODE STATUS:Full Disposition: PT/OT, CM to assist with DC planning. DC with cardiology recommendation/clearance. Admission and Anticipated Discharge Date Admission Date: February 23, 2022 Subjective Patient seen and examined at bedside as a follow-up of acute on chronic heart 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, recent history of pericardial effusion, likely pneumonia and RSV infection. Patient was lying in bed, on room air, NAD, reports no new acute event overnight. Patient reports feeling better with decreasing leg swelling and decreasing shortness of breath with exertion. Patient reports eating okay and moving bowels okay. Patient denies other review of symptoms. Physical Exam Physical Exam: GENERAL: Alert and oriented x3. NAD, on RA. HEENT: No pallor, no icterus. Pupils equal, round and reactive to light. Oral mucosa moist. NECK: No JVD, no neck masses. HEART: S1 and S2 heard. Regular rate and rhythm. No murmur, no gallop. RESPIRATORY SYSTEM: Normal AP diameter. No accessory muscle use. No wheezing, no crackles. ABDOMEN: Soft, bowel sounds present, nontender, no distention. CENTRAL NERVOUS SYSTEM: No facial droop. Speech is clear. Obeys simple commands. Moves extremities. EXTREMITIES: trace ble edema, no erythema seen. Results & Data Results & Data ([facility]) Vital Signs (Past 12 Hours) Vital Signs Temp Pulse Resp BP Pulse Ox O2 Del Method 02/25/22 11:45 36.5 C 72 19 119/77 94 Room Air 02/25/22 07:39 36.8 C 77 18 133/78 96 Room Air
[2022-02-25] MEDS ORDERED: FUROSEMIDE INJ 20 MG/2 ML VIAL IV SCH (18:00)
[2022-02-25] MEDS: ACETAMINOPHEN 500 MG TAB PO PRN (19:32)
[2022-02-25] MEDS: ESCITALOPRAM OXALATE 10 MG TAB PO SCH (19:35)
[2022-02-25] MEDS: ATORVASTATIN 40 MG TAB PO SCH (19:35)
[2022-02-26 06:24] LABS: Basophils # (auto) 0.03 K/uL (0-0.2); Basophils % (auto) 0.3 %; Eosinophils # (auto) 0.01 K/uL (0-0.50); Eosinophils % (auto) 0.1 %; Hematocrit (blood only) 36.6 % (40.1-51.0); Hemoglobin 12.4 g/dl (14.0-18.0); Immature Granulocytes # (auto) 0.13 K/uL (0.00-0.02); Immature Granulocytes % (auto) 1.4 %; Lymphocytes # (auto) 0.89 K/uL (1.2-3.4); Lymphocytes % (auto) 9.3 %; Mean Corpuscular Hemoglobin 32.1 pg (25.0-34.0); Mean Corpuscular Hgb Conc 33.9 g/dL (32.0-36.0); Mean Corpuscular Volume 94.8 fL (80.0-100.0); Mean Platelet Volume 9.3 fL (9.4-12.4); Monocytes # (auto) 0.88 K/uL (0.24-0.82); Monocytes % (auto) 9.2 %; Neutrophils # (auto) 7.58 K/uL (1.4-6.5); Neutrophils % (auto) 79.7 %; Platelet Count 276 K/uL (130-400); RDW Coefficient of Variation 16.6 % (11.5-14.5); RDW Standard Deviation 57.5 fL (36.4-46.3); Red Blood Count 3.86 M/uL (4.63-6.08); White Blood Count 9.52 K/ul (4.8-10.8)
[2022-02-26 06:45] LABS: BUN Creatinine Ratio 24.4 (10-20); Calcium 8.3 mg/dl (8.5-10.1); Creatinine Clr Calc Pharmacy 61.2 ml/min; Est GFR (African American) 91.9 ml/min; Est GFR (Non-African American) 79.3 ml/min; Magnesium 1.9 mg/dl (1.7-2.4); Potassium 3.7 mmol/L (3.5-5.1)
[2022-02-26] MEDS: AMIODARONE 200 MG TAB PO SCH (08:26)
[2022-02-26] MEDS: SPIRONOLACTONE 12.5 MG TAB PO SCH (08:26)
[2022-02-26] MEDS: FUROSEMIDE INJ 20 MG/2 ML VIAL IV SCH (08:26)
[2022-02-26] MEDS: CEFEPIME 2,000 MG in SYRINGE 0 ML IV SCH (08:26)
[2022-02-26] MEDS: FINASTERIDE 5 MG TAB PO SCH (08:27)
[2022-02-26] MEDS: METOPROLOL SUCC 50MG EXT REL TAB PO SCH (08:27)
--- NOTE | 2022-02-26 11:49 | Cardiology Progress Note ---
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 Left ventricular ejection fraction 25% per most recent echocardiogram. Clinically improved with IV diuretic therapy. Weight is down. Edema and SOB improved. Inaccurate fluid balance due to bathroom privileges. Amiodarone increased to 200 mg twice daily due to recent ICD shock 02/16/2022. Telemetry reveals AV paced rhythm without recurrent dysrhythmia. Pericardial effusion treated with 4-week course of corticosteroids. Patient was not treated with colchicine. Most recent echocardiogram result listed above. History of paroxysmal atrial fibrillation rhythm controlled with amiodarone. Anticoagulation discontinued recently by primary outpatient infrastructure software engineer due to concerns regarding hemopericardium. No recurrent atrial fibrillation per ICD interrogation. Discussed with outpatient infrastructure software engineer. Will continue observation off anticoagulation for the time being, however, consideration for restarting warfarin with evidence of recurrent atrial fibrillation on follow-up ICD interrogations. Patient doing well and anxious for discharge. appears euvolemic and no recurrent arrhythmias. would recommend continuing higher dose amiodarone 200 mg BID on discharge for re-load given recent ICD shock Continue metoprolol would recommend furosemide 20 mg daily on discharge. Was previously taking about 20 mg every other day but possibly non compliant. Patient has f/u next week with Dr. Sim on 03/04 and will keep this appointment. Case discussed with Dr. Aviles Admission and Anticipated Discharge Date Admission Date: February 23, 2022 Supervising Physician Co-Signing Physician Notes Patient seen examined the bedside. Significantly improved with IV diuretic therapy. Anxious for discharge. Denies orthopnea, PND, or edema. No cough or wheezing. Denies chest discomfort or palpitations. Telemetry reveals paced rhythm in the 80s. PE: VSS. Gen: NAD, AAO x3. Heart: Regular rhythm, normal S1-S2. No murmur. Extremities: No edema. A/P: Agree with above AP history, physical exam, assessment and plan. Discontinue IV diuretic therapy. Transition to oral Lasix 20 mg daily (previously treated 20 mg every other day) continue amiodarone 200 mg twice daily in addition to other cardiovascular medications as previously ordered. Cardiology follow-up scheduled 03/04/2022. Patient may be discharged from a cardiovascular perspective. Subjective Patient resting in bed comfortably. Anxious for discharge. Feeling well. SOB improved. No cough. Laying supine without orthopnea. No edema. No dizziness or lightheadedness. No chest pain. Review of Systems Review of Systems: All systems reviewed & are unremarkable except as noted in HPI & below Physical Exam Constitutional: well nourished; no acute distress Respiratory: no respiratory distress, no labored breathing and no retractions Auscultation: + diminished lung sounds (Bases bilateral); no rhonchi and no wheezes Cardiovascular: Rate/Rhythm: regular rate and regular rhythm Heart Sounds: normal S1 and normal S2; no murmur Vessels: radial pulses present; no JVD and no carotid bruit Extremities: + edema (Trace pedal edema) Gastrointestinal (Abdomen): Inspection/Auscultation: normal bowel sounds; abdomen not distended Percussion/Palpation: abdomen soft; abdomen nontender, no guarding and abdomen not rigid Neurologic: CN's II-XI intact bilaterally and moves all extremities; no focal motor deficits Results & Data ([facility]) Vital Signs (Past 12 Hours) Vital Signs Temp Pulse Resp BP Pulse Ox O2 Del Method 02/26/22 07:41 36.7 C 71 16 135/83 96 Room Air 02/26/22 02:46 36.8 C 88 121/83 93 Room Air Laboratory Results CBC 02/26/22 Range/Units 06:07 WBC 9.52 (4.8-10.8) K/ul RBC 3.86 L (4.63-6.08) M/uL Hgb 12.4 L (14.0-18.0) g/dl Hct 36.6 L (40.1-51.0) % Plt Count 276 (130-400) K/uL Neut # (Auto) 7.58 H (1.4-6.5) K/uL Lymph # (Auto) 0.89 L (1.2-3.4) K/uL [place] # (Auto) 0.88 H (0.24-0.82) K/uL Eos # (Auto) 0.01 (0-0.50) K/uL Baso # (Auto) 0.03 (0-0.2) K/uL Comprehensive Metabolic Panel 02/26/22 Range/Units 06:07 Sodium 134 L (136-145) mmol/L Potassium 3.7 (3.5-5.1) mmol/L Chloride 100 (98-107) mmol/L Carbon Dioxide 27 (21-32) mmol/L BUN 22 (6-23) mg/dl Creatinine 0.90 (0.6-1.4) mg/dl Glucose 86 (70-99(Fasting)) mg/dl Calcium 8.3 L (8.5-10.1) mg/dl Intake and Output 02/25/22 02/26/22 02/26/22 22:59 06:59 14:59 Intake Total 200 / 880 200 / 880 Balance 200 / 880 200 / 880 Intake: Oral 200 / 880 200 / 880 Other: Weight 68.6 kg Weight Measurement Method Built in [facility] Diagnostic Findings Telemetry reviewed: Paced in the 70's. no arrhythmias Medications Administered Current Inpatient Medications Acetaminophen (Acetaminophen 500 Mg Tab) 1,000 mg PO Q8H PRN PRN Reason: Pain Stop: 03/26/22 13:35 Last Admin: 02/25/22 19:32 Dose: 1,000 mg Amiodarone HCl (Amiodarone 200 Mg Tab) 200 mg PO BID XUAN Stop: 03/26/22 20:59 Last Admin: 02/26/22 08:26 Dose: 200 mg Atorvastatin Calcium (Atorvastatin 40 Mg Tab) 40 mg PO HS XUAN Stop: 03/25/22 21:19 Last Admin: 02/25/22 19:35 Dose: 40 mg Escitalopram Oxalate (Escitalopram Oxalate 10 Mg Tab) 5 mg PO HS XUAN Stop: 03/26/22 20:59 Last Admin: 02/25/22 19:35 Dose: 5 mg Finasteride (Finasteride 5 Mg Tab) 5 mg PO QAM XUAN Stop: 03/26/22 08:59 Last Admin: 02/26/22 08:27 Dose: 5 mg Furosemide (Furosemide Inj 20 Mg/2 Ml Vial) 20 mg IV BID@0800,1800 XUAN Stop: 03/27/22 17:59 Last Admin: 02/26/22 08:26 Dose: 20 mg Cefepime HCl 2,000 mg/ Syringe 20 mls @ 5 mls/min IV Q8H [facility]; Protocol Stop: 03/02/22 23:29 Last Admin: 02/26/22 08:26 Dose: 5 mls/min Metoprolol Succinate (Metoprolol Succ 50mg Ext Rel Tab) 50 mg PO QAM [facility] Stop: 03/26/22 08:59 Last Admin: 02/26/22 08:27 Dose: 50 mg Spironolactone (Spironolactone 12.5 Mg Tab) 12.5 mg PO DAILY [facility] Stop: 03/26/22 11:59 Last Admin: 02/26/22 08:26 Dose: 12.5 mg
--- NOTE | 2022-02-26 12:28 | Discharge Summary ---
Date of Service February 26, 2022 Admission HPI Per Admitting Provider This is an 82 y/o male with a PMH of PAF, AC currently on hold due to presumed hemopericardium, nonischemic cardiomyopathy, hx sustained ventricular tachycardia now s/p AIDC placement, chronic systolic CHF, hx pleural effusion, nonobstructive CAD, HTN, RBBB, BPH, hx [place] syncope, and recent pericardial effusion treated with four weeks of prednisone who presented to the ED today with worsening LUBIN and orthopnea. Pt was admitted to this facility 01/22-01/26/22 with weakness, found to have a moderate to large sized pericardial effusion. Started on steroids as colchicine would have interacted with pt's amiodarone. After discharge, pt developed cold symptoms with cough, congestion, rhinorrhea. Seen in the ED on 02/08/22 for increased edema in LE and these cold symptoms. He was diagnosed with bronchitis and started on azithromycin. Cardiology changed this to doxycycline. His diuretics were adjusted to furosemide 20 mg QOD to help with edema although some of the swelling was attributed to the steroids. Pt reports that the doxycycline seemed to help with the cough and congestion but over the last few days he has noted increasing LUBIN and orthopnea. His daughter noticed a 3 lb wt gain as well so she changed his diuretics to 20 mg daily for the last three days. Pt felt worse last night so they came for evaluation this morning. Pt denies fevers, chills, N/V, change in bowel habits. He notes urinary frequency, which he relates to the diuretics. He denies chest pain, SCHUSTER, syncope. He does report two falls in the last month, one of which was during his last admission. Pt's daughter also reports that pt's ICD alarm has been going off intermittently. Device was interrogated and showed that pt had an episode of VT that was shocked with termination of the arrhythmia. Admission Exam Per Admitting Provider Constitutional: + frail appearing; no acute distress Eyes: + anicteric sclerae Neck: trachea midline Respiratory: no respiratory distress and no labored breathing Auscultation: + crackles (right > left basilar); no wheezes Cardiovascular: Rate/Rhythm: regular rate and regular rhythm Heart Sounds: + murmur Vessels: radial pulses present Extremities: + pedal edema (2+) Gastrointestinal (Abdomen): Inspection/Auscultation: normal bowel sounds; abdomen not distended Percussion/Palpation: abdomen soft; abdomen nontender Skin: fading ecchymosis left periorbital area Neurologic: moves all extremities; no focal motor deficits Psychiatric: A+Ox3, euthymic affect Principal Diagnosis Acute on chronic heart 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 Recent history of pericardial effusion status post treatment Likely pneumonia RSV infection Discharge Exam GENERAL: Alert and oriented x3. NAD, on RA. HEENT: No pallor, no icterus. Pupils equal, round and reactive to light. Oral mucosa moist. NECK: No JVD, no neck masses. HEART: S1 and S2 heard. Regular rate and rhythm. No murmur, no gallop. RESPIRATORY SYSTEM: Normal AP diameter. No accessory muscle use. No wheezing, no crackles. ABDOMEN: Soft, bowel sounds present, nontender, no distention. CENTRAL NERVOUS SYSTEM: No facial droop. Speech is clear. Obeys simple commands. Moves extremities. EXTREMITIES: trace ble edema, no erythema seen. 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 Admitting Chest x-ray is compatible with CHF; Admitting BNP elevated at 2088. Admitting CTA did not show any pulmonary embolism Appreciate cardiology input and recommendation -- lasix 20 mg daily, aldactone added. f/u w/ cardion in 03/04. will need labs in 1-2 weeks time. f/u w/ pcp in a week time of discharge. HH diet. FR 1.5 L. Low Na diet. Recent history of pericardial effusion (admitted on 01/26/2022): was Rxed w/ steroid x 4 weeks; not colchicine. Admitting CTA chest w/ decreased pericardial effusion. Cardio on board. Presence of biventricular automatic cardioverter/defibrillator (AICD): History of nonischemic cardiomyopathy with EF 20 to 30%, S/p AICD placement Has had 2 episodes of abnormal noise heard from the device without any significant symptoms experienced by the patient, Device discharged 02/16/22 as per the interrogation Appreciate cardiology input and dose of amiodarone has been increased to 200 mg twice daily and will continue metoprolol succinate Likely Pneumonia: RSV Has had URI-like symptoms recently and was seen in the emergency room on 02/08/2022 and was given azithromycin which were changed to doxycycline which he completed the course. Weakness has been persistent and the shortness of breath has been ongoing Admitting Chest x-ray and CTA did show bibasilar pneumonia. C/w cefepime 02/23. to PO cefdinir on DC. total of 7 days. Paroxysmal atrial fibrillation: History paroxysmal atrial fibrillation S/p AICD/pacer placement and the heart rate is controlled Amiodarone dose has been increased to control arrhythmias Recently anticoagulation dc'd by cardio as OP, pt will need close f/u cardio regarding Anticoagulation need. Other chronic medical conditions: Nonischemic cardiomyopathy --> resume home meds as able. DVT prophylaxis: Anticoagulation has been on hold due to recent pericardial effusion likely hemorrhagic, Will have SCDs for now. CODE STATUS:Full Patient being discharged home with following instruction at the point of discharge: Follow-up with your primary care physician within a week time and likely you will need blood test CBC/CMP/magnesium level. Cardiology evaluated you for your heart failure and ICD shock on 02/16/2022, your amiodarone dose has been increased. Follow-up with cardiology on 03/04/2022. Follow-up with cardiology regarding the need for anticoagulation. Care. Take your Lasix 20 mg daily, maintain fluid restriction of 1.5 L/day. Maintain heart healthy diet. Maintain low sodium (<2g/day) diet. Take medications as prescribed. Home [facility] Attestation I certify that this patient is under my care and that I, or a physicians healthcare administrative assistant working with me, had a face to-face encounter that meets the [id number] encounter requirements with this patient. The encounter with the patient was in whole, or in part, for the following medical condition, which is the primary reason for home health care (list medical condition): I certify that, based on my findings, the following services are medically necessary home health services: My clinical findings support the need for the above services because: Further, I certify that my clinical findings support that this patient is homeb ound (i.e. absences from home require considerable and taxing effort and are for medical reasons or restorationism services or infrequently or of short duration when for other reasons) because: Certification for Home Health Services: Based on the above findings, I certify that this patient is confined to the home and needs intermittent detention care, physical therapy and/or speech therapy or continues to need occupational therapy. The patient is under my care, and I have initiated the establishment of the plan of care. This patient will be followed by a physician who will periodically review the plan of care. 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 Cardiology evaluated you for your heart failure and ICD shock on 02/16/2022, your amiodarone dose has been increased. Follow-up with cardiology on 03/04/2022. Follow-up with cardiology regarding the need for anticoagulation. Care. Take your Lasix 20 mg daily, maintain fluid restriction of 1.5 L/day. Maintain heart healthy diet. Maintain low sodium (<2g/day) diet. Take medications as prescribed. Pending Studies at Discharge: No Stand-Alone Forms: My [employer], Smoking Cessation Medications and DC Order Prescriptions: New spironolactone 25 mg Tablet 12.5 mg PO DAILY Qty: 15 0RF cefdinir 300 mg capsule 300 mg PO BID 4 Days Qty: 8 0RF Continued finasteride [Proscar] 5 mg tablet 5 mg PO QAM Qty: 90 3RF atorvastatin [Lipitor] 40 mg tablet 40 mg PO HS Qty: 30 0RF escitalopram oxalate 5 mg tablet 5 mg PO HS metoprolol succinate 50 mg Tablet Extended Release 24 Hr 50 mg PO QAM 30 Days Qty: 30 0RF Changed amiodarone 200 mg Tablet 200 mg PO BID Qty: 60 0RF furosemide 20 mg tablet 20 mg PO DAILY Qty: 30 0RF Rx Instructions: every other day Discharge Orders: Discharge Order (Routine); Ordered 02/26/22 Ordered By: Jaylon Burt Admission Data Admit Date/Time: 02/23/22 13:38 Attending Provider: Jaylon Burt Admit Provider: Destiney Mendoza Primary Care Provider: Cee Pope Other Providers: Destiney Mendoza ; Jin Aviles
== END 2022-02-26 14:19 | disposition home or self-care (01) | DRG 291 ==
LOC: ED 09:58 → SUATTDRO 13:38 → EDINP 13:38 → 4W 02-24 12:10
DX: I31.2 Hemopericardium, not elsewhere classified; Z88.2 Allergy status to sulfonamides; I11.0 Hypertensive heart disease with heart failure; Z79.899 Other long term (current) drug therapy; I47.20 Ventricular tachycardia, unspecified; Z86.79 Personal history of other diseases of the circulatory system; I48.0 Paroxysmal atrial fibrillation; I50.43 Acute on chronic combined systolic (congestive) and diastolic (congestive) heart failure; J12.1 Respiratory syncytial virus pneumonia; I42.8 Other cardiomyopathies; N40.0 Benign prostatic hyperplasia without lower urinary tract symptoms; Z95.810 Presence of automatic (implantable) cardiac defibrillator; Z88.0 Allergy status to penicillin

== ENCOUNTER 2022-06-30 13:20 | Inpatient (IN) ==
--- NOTE | 2022-06-30 13:36 | Cardiology Consultation ---
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 - continue amiodarone 200 milligrams twice daily - continue metoprolol succinate to 50 milligrams twice daily (dose recently increased on 06/19/2022) - continue midodrine 2.5 milligrams three times daily (added 06/09/2022 for blood pressure support) - proceed with basic metabolic panel, magnesium, and a stat basis, for assessment of kidney function electrolytes. - once electrolytes are stable, will likely start mexiletine 200 milligrams Three times daily. - I had discussion once again with the patient and his 2 daughters. - I also reviewed this case with Dr. Rae of EP. - plan on re-interrogate in his device, with help of [employer] sales representative printing supplies and EP tomorrow to optimize settings and reset his clock set the time stamps are correct. - I continue to have concerns that the patient has worsening ventricular arrhythmias are marker of end-stage cardiomyopathy. Case discussed with Dr Hankins of Emergency Medicine, Dr Rae of EP, and Dr Stein of our practice who is covering at [facility] this evening for the purpose of ongoing coordination of care. History of Present Illness Reason for Consultation: Recurrent sustained ventricular tachycardia Requesting Physician: Dr Hankins History of Present Illness Kilo Musa is a 82 year old year old male The presented initially the the [facility] as an acute visit due to the above concerns, having most recently been seen by the undersigned on 06/09/2022nd again on 06/15/2022. At the time his 06/15/2022 visit he had been noted to have episodes of ventricular tachycardia on 06/13/2022 and 06/14/2022 with AICD discharge on one occasion. The patient presents today having felt hot and flushed this morning at around 9:00 p.m.. Device interrogation reveals that he had a 54 second run of sustained ventricular tachycardia with unsuccessful antitachycardia pacing and ultimately received an ICD discharge with 35 joules with mandaen to sinus rhythm. He had also had a recent 11 beat run of VT that did respond to antitachycardia pacing on 06/27/2022. The patient was counseled to come to the cardiology clinic for lab work. While waiting in the waiting room, he had another episode. His device has since been interrogated, confirming another episode of sustained ventricular tachycardia at 11:41 a.m. (the time stamp on the device is in correct is at rates 10:41 a.m.) for which he received several treatments of antitachycardia pacing with subsequent conversion to sinus rhythm without AICD discharge. The patient has had progressive generalized weakness. His furosemide dose had been uptitrated 06/09 findings of shortness of breath, recurrent ventricular tachycardia and bilateral pleural effusions. He notes his breathing seems improved in the interim. He notes 3 days of diarrhea also. History: -SPIKE guided direct current cardioversion 10/28/2021 -Admission(07/21/2021 until 07/26/2021)following sustained ventricular tachycardia with resultant syncope, status post cardioversion in the field Atrial fibrillation/flutter with a rapid ventricular response of unknown duration noted on admission; [id number] Score of at least 6 points -July 22, 2021 Coronary Angiography ([facility], Dr. Saavedra) with mild nonobstructive CAD (20% ostial LM, 25% mid LAD, ectatic LCX with 20% proximal stenosis and a 30% distal stenosis, 30% mid RCA), normal intracardiac filling pressure. -New onset nonischemic cardiomyopathy with NYHA Class II+ CHF, EF 25-30%, right bundle branch block with QRS duration 162 ms (possibly a component of tachycardia induced cardiomyopathy, however unfortunately left ventricular systolic function has not improved status post rate control, cardioversion, biventricular pacemaker AICD) -Status post biventricular pacemaker defibrillator implantation on 07/25/[address] Rae. -Intermittent gross hematuria while on heparin; evaluation by Urology 07/24/2021, with cystoscopy, CT of the abdomen pelvis, findings of enlarged prostate, bladder stone -Mildly abnormal TSH -Hypertension -Dyslipidemia -History of CVA, 2017 -admission, [facility] , 01/21/2022 until 01/26/2022, presenting with generalized weakness, relative hypotension, with systolic blood pressure in the 90s to low 100s, [facility], [id number] pericardial effusion with CT findings suggestive hemopericardium. This prompted discontinuation of warfarin. Lisinopril discontinued, metoprolol succinate 100 milligrams twice daily reduced to 50 milligrams daily, diuretics held -admission, [facility], 02/23/2022-02/26/2022, acute on chronic heart failure with reduced ejection fraction, appropriate AICD shock prior to hospitalization -03/04/2022, he had a seizure episode that night prompting presentation to the emergency department at [facility]. A CT of the brain performed that evening 03/04/2022 revealed bilateral mixed attenuation subdural hematomas as well as a fracture of the left zygomatic arch. Both of these findings were new compared to a previous CT performed 11/18/2021. - appropriate AICD discharge 06/13/2022, 06/30/2022, VT while on amiodarone 200 milligrams twice daily Allergies Allergy/AdvReac Type Severity Reaction Status Date / Time amoxicillin Allergy Intermediate Hives Verified 05/12/22 14:22 sulfamethoxazole Allergy Mild Unknown Verified 05/12/22 14:22 [From Bactrim] trimethoprim [From Bactrim] Allergy Mild Unknown Verified 05/12/22 14:22 Home Medications Medication Instructions Recorded Confirmed Type atorvastatin 40 mg tablet (Lipitor) 40 mg PO HS #30 tabs 07/26/21 03/04/22 Rx finasteride 5 mg tablet (Proscar) 5 mg PO QAM #90 tabs 11/04/21 03/04/22 Rx escitalopram oxalate 5 mg tablet 10 mg PO HS 01/22/22 03/04/22 History amiodarone 200 mg tablet 200 mg PO BID #60 tabs 02/26/22 03/04/22 Rx furosemide 20 mg tablet 20 mg PO DAILY #30 tabs 02/26/22 03/04/22 Rx spironolactone 25 mg tablet 12.5 mg PO DAILY #15 tabs 02/26/22 03/04/22 Rx metoprolol succinate 50 mg PO QAM 03/04/22 03/04/22 History Patient History Medical History Atrial fibrillation, new onset Dx June 2021 > digoxin, Coumadin > follows with Dr. Sim > pacemaker BPH (benign prostatic hyperplasia) CAD (coronary artery disease) Per cardio records- mild nonobstructive CAD (20% ostial LM, 25% mid LAD, ectatic LCX with 20% proximal stenosis and a 30% distal stenosis, 30% mid RCA), normal intracardiac filling pressure. History of COVID-16 Mar 2020 > "never tested", not hospitalized, "bad cold symptoms">resolved. Hx of basal cell carcinoma "Nose, back, chest" Hyperlipidemia Hypertension Nonischemic cardiomyopathy EF 20-30% S/p pacer/ICD placement Pacemaker Pacemaker/ACID. Placed 06/2021 [facility] > [employer] Pericardial effusion RBBB Stroke Approx 7 yrs ago > no residual effects, mild stroke per pt > no neuro Ventricular tachycardia Pacemaker/ICD in place Surgical History History of cardiac cath 06/2021 > [facility] > no stents; f/u Dr. Sim History of colonoscopy History of tooth extraction Family History Father Colorectal cancer Social History Smoking Status: Unknown if ever smoked Second Hand Exposure: No; Hx Alcohol Use: No Hx Substance Use: No Preferred Language: Spanish Communication Ability: Effective Software Test Developer Required: No Beliefs That Will Affect Care: None marital status: Current Living Situation: Spouse Feels Safe at Home: Yes Assistive Devices: Denture - Upper Review of Systems Review of Systems: All systems reviewed & are unremarkable except as noted in HPI & below Temp Pulse Resp BP Pulse Ox O2 Del Method 36.8 C 71 20 120/84 97 Room Air 06/30/22 13:30 06/30/22 13:31 06/30/22 13:30 06/30/22 13:30 06/30/22 13:30 06/30/22 13:30 General: thin, cachectic Eyes: conjunctiva are pink and non-injected, sclera clear Neck: normal jugular venous pulse, no hepatojugular reflux Chest: normal shape and normal respiratory effort - Left infraclavicular device pocket clean dry and intact, no erythema Lungs: clear to auscultation , no rales rhonchi or wheezing Cardiac Exam: - regular heart sounds, no murmurs, rubs, or gallops Abdomen: abdomen soft, non-tender, no abnormal masses and no hepatosplenomegaly Musculoskeletal: no gait disturbance, no weakness Extremities: no edema and no cyanosis Neuro: grossly normal exam Psych: appropriate affect and insight. Results & Data Vital Signs (Past 12 Hours) Vital Signs Pulse 06/30/22 13:31 71
[2022-06-30 13:47] LABS: Basophils # (auto) 0.04 K/uL (0-0.2); Basophils % (auto) 0.4 %; Eosinophils # (auto) 0.03 K/uL (0-0.50); Eosinophils % (auto) 0.3 %; Hematocrit (blood only) 45.5 % (42.0-52.0); Hemoglobin 15.3 g/dl (14.0-18.0); Immature Granulocytes # (auto) 0.08 K/uL (0.01-0.20); Immature Granulocytes % (auto) 0.9 %; Lymphocytes # (auto) 1.39 K/uL (1.2-3.4); Lymphocytes % (auto) 15.6 %; Mean Corpuscular Hgb Conc 33.6 g/dL (32.0-36.0); Mean Corpuscular Volume 98.1 fL (80.0-100.0); Mean Platelet Volume 9.4 fL (9.4-12.4); Monocytes % (auto) 10.1 %; Neutrophils # (auto) 6.49 K/uL (1.40-6.50); Neutrophils % (auto) 72.7 %; Platelet Count 272 K/uL (130-400); RDW Coefficient of Variation 14.5 % (11.5-14.5); RDW Standard Deviation 52.4 fL (36.4-46.3); Red Blood Count 4.64 M/uL (4.70-6.10); White Blood Count 8.93 K/ul (4.8-10.8)
[2022-06-30 14:01] LABS: Albumin Level 3.9 gm/dl (3.4-5.0); Bilirubin,Total 0.9 mg/dl (0.2-1.0); Calcium 9.2 mg/dl (8.6-10.3); Magnesium 2.1 mg/dl (1.7-2.4); Potassium 4.1 mmol/L (3.5-5.1)
[2022-06-30 14:07] LABS: Albumin Globulin Ratio 1.2 (0.9-2); BUN Creatinine Ratio 19.2 (10-20); Creatinine Clr Calc Pharmacy 46.5 ml/min; Est GFR (African American) 64.9 ml/min; Globulin 3.3 gm/dl (2.5-4.0); Phosphorus 3.5 mg/dl (2.5-4.9); Total Protein 7.2 gm/dl (6.0-8.3)
[2022-06-30 14:09] LABS: Troponin I High Sensitivity 17.3 pg/ml (0-20)
--- NOTE | 2022-06-30 14:26 | XRay Report ---
XR chest 1V portable CLINICAL HISTORY: Chest pain, nonspecific COMPARISON STUDY: Chest CT February 15, 2022. Chest radiograph March 04, 2022. FINDINGS: Left subclavian pacer/AICD is in place. There is no pneumothorax. Small left and trace righ t pleural effusions are present. Bibasilar opacities have improved since prior exam. Cardiomegaly is noted. Pulmonary vascular congestion has improved. IMPRESSION: 1. Cardiomegaly. No evidence for overt pulmonary edema. 2. Small left and trace right pleural effusions with bibasilar opacities. ACT 112: Negative or not required by law. Electronically signed by: Rakan Li M.D. 06/30/2022 2:25 PM
[2022-06-30] MEDS ORDERED: MEXILETINE HCL 150 MG CAPSULE PO ONE (14:30)
--- NOTE | 2022-06-30 14:38 | History & Physical Report ---
Date of Service June 30, 2022 Assessment & Plan (1) Sustained VT (ventricular tachycardia): (2) Nonobstructive cardiomyopathy: (3) Chronic HFrEF (heart failure with reduced ejection fraction): (4) Hypertension: Plan: - Admit to PCU - Consult cardiology - Sent from clinic by [facility], involvement with Dr. Rae of EP. Per cards recommendations: - continue amiodarone 200 mg BID - continue metoprolol succinate to 50 mg BID (dose recently increased on 2022) - continue midodrine 2.5 milligrams BID (added 06/09/2022 for blood pressure support) - BMP without abnormalities - Echo being performed now - Plan to start mexiletine 200 mg TID- already ordered per cards - re-interrogate in his device, with help of [employer] automotive sales representative and EP tomorrow to optimize settings and reset his clock set the time stamps are correct. - concerns that the patient has worsening ventricular arrhythmias are marker of end-stage cardiomyopathy DVT PPx: - teds, scds CODE: Full code Dispo: From home, likely to remain in the hospital x 1-2 days A total of 76 minutes were spent with greater than 50% of that time face to face with the patient, personally reviewing all current laboratories, imaging studies, past medication reconciliation, outpatient chart review, and discussion with specialists to collaborate care for the patient with attending. Please see attending documentation for corrections and/or additions. History of Present Illness Chief Complaint: Referred by Cardiology office Primary Care Provider: VIVIAN Stovall This is an 82-year-old male with PMHx of nonobstructive CAD, HTN, HLD, history of CVA in 2017, history of A-fib/flutter with RVR, new onset nonischemic cardiomyopathy, right bundle branch block, biventricular pacemaker AICD in place. Patient presented to outpatient cardiology office this morning and saw Dr. Sim, found to be in sustained V. tach. He has been recently seen in the outpatient office on 06/09 and on 06/16 due to AICD discharge. He has been having episodes of feeling hot, flushed and device interrogation revealed 54- second run of sustained V. tach with unsuccessful antitachycardia pacing, and ICD discharge with 35 J converting to normal sinus rhythm. Per outpatient epic notes he also had a 11 beat run of V. tach that responded to antitachycardia pacing on 06/27. Today there is concern that his ATP termination did not function appropriately. Dr. Sim has been in contact with Dr. Rae and has recommended the patient be admitted for observation, evaluation of the device and mexiletine titration pending electrolytes are within normal ranges. Patient's daughter is present with him at bedside and assisted in the hip history. He states that this morning around 9 AM he again began feeling hot, with flush sensation where he again hears the alarm, and it fires, however he does not pass/lose consciousness during these events. He feels better afterwards on most occasions. Today this again happened while he happened to be at the cardiology office around 1 PM. He admits that this has been happening more frequently, and daughter states that it may even happen at least once per day in the last 2 weeks. He feels well currently, no complaints of chest discomfort, pain, shortness of breath, lightheadedness or dizziness. Denies any recent illnesses, has been eating and drinking well. Is compliant with all medications and took them this morning. Lives at home with his and his other daughter. Allergies Allergy/AdvReac Type Severity Reaction Status Date / Time amoxicillin Allergy Intermediate Hives Verified 05/12/22 14:22 sulfamethoxazole Allergy Mild Unknown Verified 05/12/22 14:22 [From Bactrim] trimethoprim [From Bactrim] Allergy Mild Unknown Verified 05/12/22 14:22 Home Medications Medication Instructions Recorded Confirmed Type atorvastatin 40 mg tablet (Lipitor) 40 mg PO HS #30 tabs 07/26/21 06/30/22 Rx finasteride 5 mg tablet (Proscar) 5 mg PO QAM #90 tabs 11/04/21 06/30/22 Rx escitalopram oxalate 5 mg tablet 10 mg PO HS 01/22/22 06/30/22 History amiodarone 200 mg tablet 200 mg PO BID #60 tabs 02/26/22 06/30/22 Rx furosemide 20 mg tablet 20 mg PO DAILY #30 tabs 02/26/22 06/30/22 Rx spironolactone 25 mg tablet 12.5 mg PO DAILY #15 tabs 02/26/22 06/30/22 Rx metoprolol succinate 50 mg PO QAM 03/04/22 06/30/22 History levetiracetam 500 mg tablet 500 mg PO BID 06/30/22 06/30/22 History midodrine 2.5 mg tablet 2.5 mg PO TID 06/30/22 06/30/22 History Past Med/Surg History Medical History Atrial fibrillation, new onset Dx June 2021 > digoxin, Coumadin > follows with Dr. Sim > pacemaker BPH (benign prostatic hyperplasia) CAD (coronary artery disease) Per cardio records- mild nonobstructive CAD (20% ostial LM, 25% mid LAD, ectatic LCX with 20% proximal stenosis and a 30% distal stenosis, 30% mid RCA ), normal intracardiac filling pressure. History of COVID-16 Mar 2020 > "never tested", not hospitalized, "bad cold symptoms">resolved. Hx of basal cell carcinoma "Nose, back, chest" Hyperlipidemia Hypertension Nonischemic cardiomyopathy EF 20-30% S/p pacer/ICD placement Pacemaker Pacemaker/ACID. Placed 06/2021 [facility] > [employer] Pericardial effusion RBBB Stroke Approx 7 yrs ago > no residual effects, mild stroke per pt > no neuro Ventricular tachycardia Pacemaker/ICD in place Surgical History History of cardiac cath 06/2021 > [facility] > no stents; f/u Dr. Sim History of colonoscopy History of tooth extraction Family History Father Colorectal cancer Social History Smoking Status: Never smoker Second Hand Exposure: No; Hx Alcohol Use: No Hx Substance Use: No Preferred Language: Irish Communication Ability: Effective Parachute Packer Required: No Beliefs That Will Affect Care: None marital status: Current Living Situation: Spouse Feels Safe at Home: Yes Assistive Devices: Denture - Upper Review of Systems Review of Systems: Constitutional: No fever, sweats or chills Eyes: No diplopia, no worsening or blurred vision ENT: normal hearing, no trouble swallowing Respiratory: No cough, sputum, dyspnea at rest or on exertion Cardiovascular: As per HPI, currently no chest pain, tightness or palpitations Abdomen: No pain, nausea, vomiting, diarrhea or constipation Musculoskeletal: No joint pain, calf pain, swelling Neurologic: No weakness, numbness/tingling, or balance problems Psychiatric: No anxiety or depression Skin: No rash or itch Physical Exam Physical Exam: General: awake, alert, no apparent distress, appears chronically ill, + Thin Head: Normocephalic, atraumatic ENT: PERRL, EOMI, no pharyngeal exudate, mucous membranes moist Chest: Clear to auscultation, on room air, no adventitious breath sounds Cardiac: AICD in left upper chest wall, regular rate and rhythm, no murmur, no JVD, normal peripheral pulses, good capillary refill Abdominal: NABS x 4 quadrants, soft, nondistended, nontender to palpation, no rebound or guarding Extremities: Normal inspection, no peripheral edema or erythema, calfs nontender to palpation Psych: Normal mood and affect Neuro: AAO x 3, strength intact bilaterally and rated 5/5, no motor deficits, speech is clear, no peripheral sensory deficits Results & Data Results & Data Vital Signs (Past 12 Hours) Vital Signs Temp Pulse Pulse Resp BP BP Pulse Ox 06/30/22 14:01 68 20 117/70 97 06/30/22 13:30 97 06/30/22 13:30 36.8 C 76 20 120/84 97 06/30/22 13:31 71 O2 Del Method 06/30/22 14:01 06/30/22 13:30 06/30/22 13:30 Room Air 06/30/22 13:31 Laboratory Results 06/30/22 06/30/22 06/30/22 13:44 13:25 13:25 WBC RBC Hgb Hct MCV MCH MCHC RDW Std Deviation RDW Coeff of Gertrudis Plt Count MPV Immature Gran % (Auto) Neut % (Auto) Lymph % (Auto) [place] % (Auto) Eos % (Auto) Baso % (Auto) Neut # (Auto) Lymph # (Auto) Larimer # (Auto) Eos # (Auto) Baso # (Auto) Immature Gran # (Auto) Sodium 139 Potassium 4.1 Chloride 103 Carbon Dioxide 32 Anion Gap 4 BUN 23 Creatinine 1.20 Est Cr Clr Drug Dosing 46.5 Est GFR ( Amer) 64.9 Est GFR (Non-Af Amer) 56.0 BUN/Creatinine Ratio 19.2 Glucose 99 Calcium 9.2 Phosphorus 3.5 Magnesium 2.1 Total Bilirubin 0.9 AST 39 ALT 67 H Alkaline Phosphatase 90 Troponin I High Sens 17.3 Total Protein 7.2 Albumin 3.9 Globulin 3.3 Albumin/Globulin Ratio 1.2 Lipase 30 TSH 2.225 SARS-CoV-2, RNA, NAAT NEGATIVE 06/30/22 13:25 WBC 8.93 RBC 4.64 L Hgb 15.3 Hct 45.5 MCV 98.1 MCH 33.0 MCHC 33.6 RDW Std Deviation 52.4 H RDW Coeff of Gertrudis 14.5 Plt Count 272 MPV 9.4 Immature Gran % (Auto) 0.9 Neut % (Auto) 72.7 Lymph % (Auto) 15.6 Larimer % (Auto) 10.1 Eos % (Auto) 0.3 Baso % (Auto) 0.4 Neut # (Auto) 6.49 Lymph # (Auto) 1.39 Larimer # (Auto) 0.90 H Eos # (Auto) 0.03 Baso # (Auto) 0.04 Immature Gran # (Auto) 0.08 Sodium Potassium Chloride Carbon Dioxide Anion Gap BUN Creatinine Est Cr Clr Drug Dosing Est GFR ( Amer) Est GFR (Non-Af Amer) BUN/Creatinine Ratio Glucose Calcium Phosphorus Magnesium Total Bilirubin AST ALT Alkaline Phosphatase Troponin I High Sens Total Protein Albumin Globulin Albumin/Globulin Ratio Lipase TSH SARS-CoV-2, RNA, NAAT Diagnostic Findings Chest X-Ray 06/30/22 13:29 XR chest 1V portable CLINICAL HISTORY: Chest pain, nonspecific COMPARISON STUDY: Chest CT February 15, 2022. Chest radiograph March 04, 2022 . FINDINGS: Left subclavian pacer/AICD is in place. There is no pneumothorax. Small left and trace right pleural effusions are present. Bibasilar opacities have improved since prior exam. Cardiomegaly is noted. Pulmonary vascular congestion has improved. IMPRESSION: 1. Cardiomegaly. No evidence for overt pulmonary edema. 2. Small left and trace right pleural effusions with bibasilar opacities. ACT 112: Negative or not required by law. Electronically signed by: Rakan Li M.D. 06/30/2022 2:25 PM ECG Additional Comments: Reviewed showing AV dual paced rhythm, Vent. Rate : 073 BPM Atrial Rate : 073 BPM P-R Int : 128 ms QRS Dur : 140 ms QT Int : 450 ms QTc Int : 495 ms Code Status & VTE Plan Code Status Full code-discussed with the patient and his daughter at bedside Supervising Physician Co-Signing Physician Notes 82 yo M w/ PMH of A fib/flutter w/ RVR, nonobstructive CAD, HTN, HLD, CVA in 2017, nonischemic CM, sustained VT now s/p AICD was sent from cardiology office for evaluation of his V tach and AICD. Today AM pt felt hot and flushed as he woke up f/b AICD shock. Per cardio office, he had a 54 second run of sustained ventricular tachycardia with unsuccessful antitachycardia pacing and ultimately received an ICD discharge with 35 joules with latter day to sinus rhythm. Pt denies any flu or febrile illness, no acute changes in his BnB habits and reports having good appetite/full compliance with his home meds. Pt reports he has been getting progressively weak but states he moves around the house including stairs independently. He states he has to cut down on his physical therapy due to his heart condition which might be reason he is feeling weaker. Labs and imaging fairly wnl. K and Mg levels good. EKG w/ AV dual-paced rhythm. On exam, pt looks euvolemic, no ac on chronic HF. Cardio on board, plan for mexiletine, re-interrogation of his device in AM. PT/OT. On Exam: GENERAL: Alert and oriented x3. NAD, on RA. HEENT: No pallor, no icterus. Pupils equal, round and reactive to light. Oral mucosa moist. NECK: No JVD, no neck masses. HEART: S1 and S2 heard. Regular rate and rhythm. No murmur, no gallop. Subcut AICD device noted x left upper chest. RESPIRATORY SYSTEM: Normal AP diameter. No accessory muscle use. No wheezing, no crackles. ABDOMEN: Soft, bowel sounds present, nontender, no distention. CENTRAL NERVOUS SYSTEM: No facial droop. Speech is clear. Obeys simple commands. Moves extremities. EXTREMITIES: No edema, no erythema seen. I have seen and examined the patient and have discussed the case with the provider above. I agree with the assessment and plan as stated.
--- NOTE | 2022-06-30 14:45 | Emergency Department Note ---
Impression & Plan Sustained VT (ventricular tachycardia), Nonischemic cardiomyopathy, Presence of biventricular automatic cardioverter/defibrillator (AICD), AICD discharge ED Provider Note NAME: SUSAN SHEEHAN AGE: 82 SEX: M ARRIVES VIA: Ambulance INFORMANT: Patient ED PROVIDER(S): Feroz Hankins MD CHIEF COMPLAINT: Recurrent ventricular tachycardia, AICD discharge, referred. PLAN: Disposition: Admit MEDICAL DECISION MAKING: The patient is a pleasant 82-year-old gentleman with a past medical history of nonischemic cardiomyopathy with EF of 25% status post PPM and AICD, hypertension, hyperlipidemia, history of paroxysmal atrial fibrillation not on AC 2/2 history of bleeding who presents to the emergency department referred from his cardiology office for evaluation of recurrent episodes of ventricular tachycardia with first episode around 8 AM which failed treatment with ATP and subsequently received a shock. He was then brought in the office for outpatient testing and had a repeat episode that was successfully treated with ATP but given persistence for the emergency department. The patient had another episode while in route that was again successfully treated with ATP. The patient otherwise denies any recent illness including fevers, chills, cough, congestion, GI or symptoms. Case was reviewed with Dr. 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 Appreciate recommendations. Plan will be to begin the patient on mexiletine for additional control of arrhythmias. If the patient were to have recurrent episodes while the emergency department can load with 150 mg of amiodarone and begin drip. The patient's device was interrogated prior to arrival and again in the emergency department. I did review with the [employer] it help desk technician and it is functioning appropriately and his episodes do correlate with the device recording. EKG demonstrates paced rhythm. Chest x-ray negative for acute cardiopulmonary process per my preliminary review. WBC, H/H and platelets within normal limits. Chemistry without metabolic acidosis. Electrolytes with no significant abnormalities. LFTs unremarkable. High-sensitivity troponin 17.3, within normal limits. Lipase not elevated. TSH within normal limits. COVID-19 RNA, IVIS test was negative. Case d/w Hazel Barboza, [facility] PAC, with Dr. Burt, [facility] hospitalist who will evaluate the patient for admission. Triage Nursing notes reviewed and agree them. Prior/outside medical records reviewed Vital Signs: reviewed Differential diagnosis: Premature contractions, electrolyte abnormality, cardiac dysrhythmia, thyroid dysfunction, pulmonary embolism, infection, gastrointestinal, as well as other pathologies. ER treatment provided: See below. Diagnostics interpreted by me: ECG: AV dual paced rhythm, 73 bpm, no ectopy, no overt acute ischemia. Cardiac Monitoring: An order for continuous cardiac monitoring was placed and demonstrated AV dual paced rhythm, 73 bpm, no ectopy. Laboratory studies: See below Imaging studies: See below Consultation(s): Dr. Sim, [facility] cardiology Hazel Barboza, [facility] PAC, with Dr. Burt, [facility] hospitalist. HPI: The patient is a pleasant 82-year-old gentleman with a past medical history of nonischemic cardiomyopathy with EF of 25% status post PPM and AICD, h ypertension, hyperlipidemia, history of paroxysmal atrial fibrillation not on AC 2/2 history of bleeding who presents to the emergency department referred from his cardiology office for evaluation of recurrent episodes of ventricular tachycardia with first episode around 8 AM which failed treatment with ATP and subsequently received a shock. He was then brought in the office for outpatient testing and had a repeat episode that was successfully treated with ATP but given persistence for the emergency department. The patient had another episode while in route that was again successfully treated with ATP. The patient otherwise denies any recent illness including fevers, chills, cough, congestion, GI or symptoms. ROS: See above HPI for pertinent positives & negatives. A total of 10 systems reviewed and were otherwise negative. VITALS:See Below PHYSICAL EXAMINATION: GENERAL: Awake, alert, well-appearing, in no distress HENT: Normocephalic, atraumatic. Oropharynx unremarkable. EYES: Normal conjunctiva. Sclera non-icteric. NECK: Supple. No nuchal rigidity. FROM. No JVD. RESPIRATORY: Clear to auscultation. CARDIAC: Regular rate, normal rhythm. Extremities warm and well perfused. Pulses equal. ABDOMEN: Soft, non-distended. No tenderness to palpation. No rebound or guarding. No masses. RECTAL: Deferred. MUSCULOSKELETAL: Chest examination reveals no tenderness. The back is symmetrical on inspection without obvious abnormality. There is no CVA tenderness to palpation. No joint edema. LOWER EXTREMITIES: Calves are equal size bilaterally and non-tender. No edema. No discoloration. NEURO: Normal sensorium. No sensory or motor deficits noted. SKIN: No rash or jaundice noted. ED COURSE: Critical Care: I have personally spent greater than 35 minutes of critical care time in the direct management of this patient. This includes bedside care, interpretation of diagnostic studies, and testing, discussion with consultants, patient, and family members, and other required patient management activities. This 35 minutes is in excess of all separately billable procedures. Feroz Hankins MD Past Med/Surg History Medical History Atrial fibrillation, new onset Dx June 2021 > digoxin, Coumadin > follows with Dr. Sim > pacemaker BPH (benign prostatic hyperplasia) CAD (coronary artery disease) Per cardio records- mild nonobstructive CAD (20% ostial LM, 25% mid LAD, ectatic LCX with 20% proximal stenosis and a 30% distal stenosis, 30% mid RCA), normal intracardiac filling pressure. History of COVID-16 Mar 2020 > "never tested", not hospitalized, "bad cold symptoms">resolved. Hx of basal cell carcinoma "Nose, back, chest" Hyperlipidemia Hypertension Nonischemic cardiomyopathy EF 20-30% S/p pacer/ICD placement Pacemaker Pacemaker/ACID. Placed 06/2021 [facility] > [employer] Pericardial effusion RBBB Stroke Approx 7 yrs ago > no residual effects, mild stroke per pt > no neuro Ventricular tachycardia Pacemaker/ICD in place Surgical History History of cardiac cath 06/2021 > [facility] > no stents; f/u Dr. Sim History of colonoscopy History of tooth extraction Family History Father Colorectal cancer Social History Smoking Status: Never smoker Second Hand Exposure: No; Hx Alcohol Use: No Hx Substance Use: No Preferred Language: Emirati Communication Ability: Effective Bid Writer Required: No Beliefs That Will Affect Care: None marital status: Current Living Situation: Alone Feels Safe at Home: Yes Assistive Devices: Denture - Upper Allergies Allergies Allergy/AdvReac Type Severity Reaction Status Date / Time amoxicillin Allergy Intermediate Hives Verified 05/12/22 14:22 sulfamethoxazole Allergy Mild Unknown Verified 05/12/22 14:22 [From Bactrim] trimethoprim [From Bactrim] Allergy Mild Unknown Verified 05/12/22 14:22 Home Meds Home Medications Medication Instructions Recorded Confirmed escitalopram oxalate 5 mg tablet 10 mg PO HS 01/22/22 06/30/22 metoprolol succinate 50 mg PO QAM 03/04/22 06/30/22 levetiracetam 500 mg tablet 500 mg PO BID 06/30/22 06/30/22 midodrine 2.5 mg tablet 2.5 mg PO TID 06/30/22 06/30/22 Previous Rx's Medication Instructions Recorded atorvastatin 40 mg tablet (Lipitor) 40 mg PO HS #30 tabs 07/26/21 finasteride 5 mg tablet (Proscar) 5 mg PO QAM #90 tabs 11/04/21 amiodarone 200 mg tablet 200 mg PO BID #60 tabs 02/26/22 furosemide 20 mg tablet 20 mg PO DAILY #30 tabs 02/26/22 spironolactone 25 mg tablet 12.5 mg PO DAILY #15 tabs 02/26/22 Results & Data (ED) Vital Signs Vital Signs - 24 hr 06/30/22 13:31 06/30/22 13:30 06/30/22 13:30 Temperature 36.8 C Temperature Source Temporal Artery Scan Pulse Rate 71 76 Pulse Rate [Apical] Pulse Rhythm Regular Respiratory Rate 20 Respiratory Effort / Characteristics Non-Labored Spontaneous Respiratory Depth Normal Blood Pressure 120/84 Blood Pressure [Left Arm] Blood Pressure Mean 96 Blood Pressure Mean [Left Arm] Pulse Oximetry 97 97 Oxygen Delivery Method Room Air Sepsis Recent Fever Within 48 Hours No Sepsis New/Unexplained Change in Mental Status No Sepsis Action Taken by Nursing No Action Required 06/30/22 14:01 Temperature Temperature Source Pulse Rate Pulse Rate [Apical] 68 Pulse Rhythm Respiratory Rate 20 Respiratory Effort / Characteristics Non-Labored Spontaneous Respiratory Depth Normal Blood Pressure Blood Pressure [Left Arm] 117/70 Blood Pressure Mean Blood Pressure Mean [Left Arm] 85 Pulse Oximetry 97 Oxygen Delivery Method Sepsis Recent Fever Within 48 Hours Sepsis New/Unexplained Change in Mental Status Sepsis Action Taken by Nursing Laboratory Data Attestation: I reviewed the patient's lab results. 06/30/22 13:25 06/30/22 13:25 Lab Results 06/30/22 06/30/22 06/30/22 Range/Units 13:25 13:25 13:25 WBC 8.93 (4.8-10.8) K/ul RBC 4.64 L (4.70-6.10) M/uL Hgb 15.3 (14.0-18.0) g/dl Hct 45.5 (42.0-52.0) % MCV 98.1 (80.0-100.0) fL MCH 33.0 (25.0-34.0) pg MCHC 33.6 (32.0-36.0) g/dL RDW Std Deviation 52.4 H (36.4-46.3) fL RDW Coeff of Gertrudis 14.5 (11.5-14.5) % Plt Count 272 (130-400) K/uL MPV 9.4 (9.4-12.4) fL Immature Gran % (Auto) 0.9 % Neut % (Auto) 72.7 % Lymph % (Auto) 15.6 % [place] % (Auto) 10.1 % Eos % (Auto) 0.3 % Baso % (Auto) 0.4 % Neut # (Auto) 6.49 (1.40-6.50) K/uL Lymph # (Auto) 1.39 (1.2-3.4) K/uL [place] # (Auto) 0.90 H (0.11-0.59) K/uL Eos # (Auto) 0.03 (0-0.50) K/uL Baso # (Auto) 0.04 (0-0.2) K/uL Immature Gran # (Auto) 0.08 (0.01-0.20) K/uL PT (9.0-12.0) Seconds INR (0.9-1.1) Sodium 139 (136-145) mmol/L Potassium 4.1 (3.5-5.1) mmol/L Chloride 103 (98-107) mmol/L Carbon Dioxide 32 (21-32) mmol/L Anion Gap 4 (3-11) BUN 23 (6-23) mg/dl Creatinine 1.20 (0.6-1.4) mg/dl Est Cr Clr Drug Dosing 46.5 ml/min Est GFR ( Amer) 64.9 ml/min Est GFR (Non-Af Amer) 56.0 ml/min BUN/Creatinine Ratio 19.2 (10-20) Glucose 99 (70-99(Fasting)) mg/dl Calcium 9.2 (8.6-10.3) mg/dl Phosphorus 3.5 (2.5-4.9) mg/dl Magnesium 2.1 (1.7-2.4) mg/dl Total Bilirubin 0.9 (0.2-1.0) mg/dl AST 39 (13-39) U/L ALT 67 H (7-52) U/L Alkaline Phosphatase 90 (34-104) U/L Troponin I High Sens 17.3 (0-20) pg/ml Total Protein 7.2 (6.0-8.3) gm/dl Albumin 3.9 (3.4-5.0) gm/dl Globulin 3.3 (2.5-4.0) gm/dl Albumin/Globulin Ratio 1.2 (0.9-2) Lipase 30 (11-82) U/L TSH 2.225 (0.300-4.500) uIu/ml SARS-CoV-2, RNA, NAAT (NEGATIVE) 06/30/22 06/30/22 Range/Units 13:25 13:44 WBC (4.8-10.8) K/ul RBC (4.70-6.10) M/uL Hgb (14.0-18.0) g/dl Hct (42.0-52.0) % MCV (80.0-100.0) fL MCH (25.0-34.0) pg MCHC (32.0-36.0) g/dL RDW Std Deviation (36.4-46.3) fL RDW Coeff of Gertrudis (11.5-14.5) % Plt Count (130-400) K/uL MPV (9.4-12.4) fL Immature Gran % (Auto) % Neut % (Auto) % Lymph % (Auto) % [place] % (Auto) % Eos % (Auto) % Baso % (Auto) % Neut # (Auto) (1.40-6.50) K/uL Lymph # (Auto) (1.2-3.4) K/uL [place] # (Auto) (0.11-0.59) K/uL Eos # (Auto) (0-0.50) K/uL Baso # (Auto) (0-0.2) K/uL Immature Gran # (Auto) (0.01-0.20) K/uL PT 11.0 (9.0-12.0) Seconds INR 1.0 (0.9-1.1) Sodium (136-145) mmol/L Potassium (3.5-5.1) mmol/L Chloride (98-107) mmol/L Carbon Dioxide (21-32) mmol/L Anion Gap (3-11) BUN (6-23) mg/dl Creatinine (0.6-1.4) mg/dl Est Cr Clr Drug Dosing ml/min Est GFR ( Amer) ml/min Est GFR (Non-Af Amer) ml/min BUN/Creatinine Ratio (10-20) Glucose (70-99(Fasting)) mg/dl Calcium (8.6-10.3) mg/dl Phosphorus (2.5-4.9) mg/dl Magnesium (1.7-2.4) mg/dl Total Bilirubin (0.2-1.0) mg/dl AST (13-39) U/L ALT (7-52) U/L Alkaline Phosphatase (34-104) U/L Troponin I High Sens (0-20) pg/ml Total Protein (6.0-8.3) gm/dl Albumin (3.4-5.0) gm/dl Globulin (2.5-4.0) gm/dl Albumin/Globulin Ratio (0.9-2) Lipase (11-82) U/L TSH (0.300-4.500) uIu/ml SARS-CoV-2, RNA, NAAT NEGATIVE (NEGATIVE) Administered Medications Amiodarone HCl (Amiodarone 200 Mg Tab) 200 mg PO BID XUAN Stop: 07/30/22 20:59 Last Admin: 06/30/22 20:20 Dose: 200 mg Documented By: GG Atorvastatin Calcium (Atorvastatin 40 Mg Tab) 40 mg PO HS XUAN Stop: 07/30/22 20:59 Last Admin: 06/30/22 20:20 Dose: 40 mg Documented By: SUSAN Escitalopram Oxalate (Escitalopram Oxalate 10 Mg Tab) 10 mg PO HS XUAN Stop: 07/30/22 20:59 Last Admin: 06/30/22 20:20 Dose: 10 mg Documented By: SUSAN Levetiracetam (Levetiracetam 500 Mg Tab) 500 mg PO BID XUAN Stop: 07/30/22 20:59 Last Admin: 06/30/22 20:20 Dose: 500 mg Documented By: SUSAN Metoprolol Succinate (Metoprolol Succ 50mg Ext Rel Tab) 50 mg PO BID XUAN Stop: 07/30/22 20:59 Last Admin: 06/30/22 20:19 Dose: 50 mg Documented By: SUSAN Mexiletine HCl (Mexiletine Hcl 150 Mg Capsule) 150 mg PO TIDM XUAN Stop: 07/30/22 20:59 Last Admin: 06/30/22 20:01 Dose: 150 mg Documented By: SUSAN Midodrine (Midodrine Hcl 2.5 Mg Tab) 2.5 mg PO TID XUAN Stop: 07/30/22 20:59 Last Admin: 06/30/22 20:20 Dose: 2.5 mg Documented By: SUSAN Discontinued Medications Mexiletine HCl (Mexiletine Hcl 150 Mg Capsule) 150 mg PO ONE ONE Stop: 06/30/22 14:31 Last Admin: 06/30/22 15:25 Dose: 150 mg Documented By: ASW Imaging Data Radiologist's Impression: Chest X-Ray 06/30/22 13:29 XR chest 1V portable CLINICAL HISTORY: Chest pain, nonspecific COMPARISON STUDY: Chest CT February 15, 2022. Chest radiograph March 04, 2022. FINDINGS: Left subclavian pacer/AICD is in place. There is no pneumothorax. Small left and trace right pleural effusions are present. Bibasilar opacities have improved since prior exam. Cardiomegaly is noted. Pulmonary vascular congestion has improved. IMPRESSION: 1. Cardiomegaly. No evidence for overt pulmonary edema. 2. Small left and trace right pleural effusions with bibasilar opacities. ACT 112: Negative or not required by law. Electronically signed by: Rakan Li M.D. 06/30/2022 2:25 PM Discharge Plan Visit Data Chief Complaint: Cardiac Assessment ED Provider: Feroz Hankins Discharge Problem: Sustained VT (ventricular tachycardia), Nonischemic cardiomyopathy, Presence of biventricular automatic cardioverter/defibrillator (AICD), AICD discharge Patient Disposition: Admitted As Inpatient Discharge Instructions Interventions: ED Discharge Assessment Last Done: 06/30/22 15:57
--- NOTE | 2022-06-30 15:13 | Electrocardiogram Report ---
Test Reason : Blood Pressure : / mmHG Vent. Rate : 073 BPM Atrial Rate : 073 BPM P-R Int : 128 ms QRS Dur : 140 ms QT Int : 450 ms P-R-T Axes : 088 062 -32 degrees QTc Int : 495 ms Poor data quality, interpretation may be adversely affected AV dual-paced rhythm Abnormal ECG When compared with ECG of 04-MAR-2022 20:57, Vent. rate has decreased BY 5 BPM Confirmed by Yovani Guzman ([id number]) on 06/30/2022 3:13:08 PM Referred By: Confirmed By:Yovani Guzman
[2022-06-30] MEDS ORDERED: ONDANSETRON INJ 2 MG/ML 2 ML VIAL IV PRN (15:57)
[2022-06-30] MEDS ORDERED: ACETAMINOPHEN 325 MG TAB PO PRN (15:57)
[2022-06-30] MEDS: MEXILETINE HCL 150 MG CAPSULE PO SCH (20:01)
[2022-06-30] MEDS: METOPROLOL SUCC 50MG EXT REL TAB PO SCH (20:19)
[2022-06-30] MEDS: ATORVASTATIN 40 MG TAB PO SCH (20:20)
[2022-06-30] MEDS: ESCITALOPRAM OXALATE 10 MG TAB PO SCH (20:20)
[2022-06-30] MEDS: AMIODARONE 200 MG TAB PO SCH (20:20)
[2022-06-30] MEDS: MIDODRINE HCL 2.5 MG TAB PO SCH (20:20)
[2022-06-30] MEDS: levETIRAcetam 500 MG TAB PO SCH (20:20)
[2022-07-01 06:45] LABS: Hematocrit (blood only) 40.2 % (42.0-52.0); Hemoglobin 13.7 g/dl (14.0-18.0); Mean Corpuscular Hemoglobin 33.3 pg (25.0-34.0); Mean Corpuscular Hgb Conc 34.1 g/dL (32.0-36.0); Mean Corpuscular Volume 97.6 fL (80.0-100.0); Mean Platelet Volume 9.4 fL (9.4-12.4); Platelet Count 225 K/uL (130-400); RDW Coefficient of Variation 14.2 % (11.5-14.5); RDW Standard Deviation 51.8 fL (36.4-46.3); Red Blood Count 4.12 M/uL (4.70-6.10); White Blood Count 8.47 K/ul (4.8-10.8)
[2022-07-01 07:25] LABS: Albumin Globulin Ratio 1.2 (0.9-2); Albumin Level 3.4 gm/dl (3.4-5.0); BUN Creatinine Ratio 20.2 (10-20); Calcium 8.8 mg/dl (8.6-10.3); Creatinine Clr Calc Pharmacy 48.6 ml/min; Est GFR (African American) 72.9 ml/min; Est GFR (Non-African American) 62.9 ml/min; Globulin 2.9 gm/dl (2.5-4.0); Phosphorus 3.1 mg/dl (2.5-4.9); Potassium 3.9 mmol/L (3.5-5.1); Total Protein 6.3 gm/dl (6.0-8.3)
--- NOTE | 2022-07-01 07:45 | Communication Note ---
Date of Service: July 01, 2022 Patient around 430am had 5 minutes of tach and spontaneously converted. During the episode hs SBP in 70's and patient was anxious. Saw the patient. Back to regular rhythm and hemodynamically stable. Alert and oriented. Notified cardiology. Close monitor. will follow labs.
[2022-07-01] MEDS: levETIRAcetam 500 MG TAB PO SCH ×2 (08:12→20:28)
[2022-07-01] MEDS: AMIODARONE 200 MG TAB PO SCH ×2 (08:12→20:28)
[2022-07-01] MEDS: MEXILETINE HCL 150 MG CAPSULE PO SCH ×3 (08:12→16:59)
[2022-07-01] MEDS: FINASTERIDE 5 MG TAB PO SCH (08:12)
[2022-07-01] MEDS: MIDODRINE HCL 2.5 MG TAB PO SCH ×3 (08:13→20:29)
[2022-07-01] MEDS: METOPROLOL SUCC 50MG EXT REL TAB PO SCH ×2 (08:13→20:42)
[2022-07-01] MEDS: SPIRONOLACTONE 12.5 MG TAB PO SCH (08:13)
--- NOTE | 2022-07-01 09:05 | Cardiology Progress Note ---
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 -Continue midodrine 2.5 milligrams three times daily (added 06/09/2022 for blood pressure support) Reviewed case with EP. Plan for multidisciplinary cardiology conference to day to discuss option of high risk EP study and ablation to be performed at tertiary center / [facility]. Discussed with patient and daughter (Jasmyne) by phone at length. -ICD settings adjusted to lower detection rate for the VT, refer to EP consult for details. -Case discussed with Dr Rae for purpose of coordination of care. Admission and Anticipated Discharge Date Admission Date: June 30, 2022 Subjective Patient seen in general cardiology follow up. Dr Rae of EP also at bedside. Device interrogated. Pt with 4 minute episode of ventricular tachycardia. Initial episode was in the 140s , below the detection zone of the device. Second episode was successfully treated with a 3rd burst of antitachycardia pacing. Review of Systems Review of Systems: All systems reviewed & are unremarkable except as noted in HPI & below Physical Exam Constitutional: + cachectic Respiratory: mildly reduced breath sounds at left base Cardiovascular: Rate/Rhythm: regular rate Heart Sounds: + murmur (1/6 SM ) Extremities: no edema Gastrointestinal (Abdomen): normal bowel sounds, soft, nontender, no hepatosplenomegaly Neurologic: PERRL, EOMI, accommodation nl, no face palsy, no dysarthria Results & Data Vital Signs (Past 12 Hours) Vital Signs Temp Pulse Pulse Resp BP Pulse Ox O2 Del Method 07/01/22 07:20 36.9 C 94 H 18 104/81 95 Room Air 07/01/22 02:40 36.6 C 71 18 105/74 95 Room Air 07/01/22 00:11 76 06/30/22 23:23 36.8 C 70 18 115/86 94 Room Air Laboratory Results Cardiac Enzymes 06/30/22 07/01/22 Range/Units 13:25 06:16 AST 39 43 H (13-39) U/L Troponin I High Sens 17.3 (0-20) pg/ml Coagulation 06/30/22 Range/Units 13:25 PT 11.0 (9.0-12.0) Seconds CBC 06/30/22 07/01/22 Range/Units 13:25 06:16 WBC 8.93 8.47 (4.8-10.8) K/ul RBC 4.64 L 4.12 L (4.70-6.10) M/uL Hgb 15.3 13.7 L (14.0-18.0) g/dl Hct 45.5 40.2 L (42.0-52.0) % Plt Count 272 225 (130-400) K/uL Neut # (Auto) 6.49 (1.40-6.50) K/uL Lymph # (Auto) 1.39 (1.2-3.4) K/uL [place] # (Auto) 0.90 H (0.11-0.59) K/uL Eos # (Auto) 0.03 (0-0.50) K/uL Baso # (Auto) 0.04 (0-0.2) K/uL Comprehensive Metabolic Panel 06/30/22 07/01/22 Range/Units 13:25 06:16 Sodium 139 137 (136-145) mmol/L Potassium 4.1 3.9 (3.5-5.1) mmol/L Chloride 103 105 (98-107) mmol/L Carbon Dioxide 32 25 (21-32) mmol/L BUN 23 22 (6-23) mg/dl Creatinine 1.20 1.09 (0.6-1.4) mg/dl Glucose 99 89 (70-99(Fasting)) mg/dl Calcium 9.2 8.8 (8.6-10.3) mg/dl AST 39 43 H (13-39) U/L ALT 67 H 66 H (7-52) U/L Alkaline Phosphatase 90 80 (34-104) U/L Total Protein 7.2 6.3 (6.0-8.3) gm/dl Albumin 3.9 3.4 (3.4-5.0) gm/dl Diagnostic Findings ttecho : interpreted independently LVEF 25-29% Inferolateral , basal inferior akinesis, moderate to severe global hypokinesis otherwise CXR interpreted independently: -Small left and trace right pleural effusions
--- NOTE | 2022-07-01 09:23 | Electrocardiogram Report ---
Test Reason : Blood Pressure : / mmHG Vent. Rate : 071 BPM Atrial Rate : 071 BPM P-R Int : 128 ms QRS Dur : 146 ms QT Int : 428 ms P-R-T Axes : 066 119 244 degrees QTc Int : 465 ms AV dual-paced rhythm Abnormal ECG When compared with ECG of 30-JUN-2022 13:25, Vent. rate has decreased BY 2 BPM Confirmed by Yovani Guzman ([id number]) on 07/01/2022 9:22:55 AM Referred By: REFERRED SELF Confirmed By:Yovani Guzman
--- NOTE | 2022-07-01 15:19 | Cardiology Consultation ---
Date of Consultation July 01, 2022 Assessment & Plan (1) Sustained VT (ventricular tachycardia): continue amiodarone and mexiletine; superior axis looks to be coming from inferior basal area which correlates where his scar is on echo. I discussed the case with my colleague Dr. Escalona about pt having a VT ablation. Will arrange for pt to have a VT ablation as an outpt in next 2-3 weeks. I discussed with the pt's daughter 2 times today on the phone of my recommendations; i told the daughter it is ok for pt do some leg lifint exercises while sitting as well as some slow walks so he does not get deconditioned. Monitor pt overnight; if doing ok then ok to be discharged home (2) Implantable defibrillator reprogramming/check: device interrogated and reprogrammed today by myself; decreased detection rate for the VT in inge VT 1 zone and made the ATP for the VT 1 zone more agreessive and longer amounts of ATP; then i changed the therapy 2 for VT 1 zone to a RAMP with 2 attempts before getting an ICD shock; so pt would have 8 rounds of ATP prior to getting an ICD shock (3) AICD discharge: (4) Nonischemic cardiomyopathy: History of Present Illness Reason for Consultation: VT Requesting Physician: Dr. Sim Attending Physician: Noel Turner MD History of Present Illness Pt has been having alot of VT the past month-requiring ATP and got even ICD shock. He is dizziness and lightheadedness and diaphoresis with the episodes; no syncope or chest pain He had 4 minutes of the VT this morning-it was below the detection so no therapy was given Allergies Allergy/AdvReac Type Severity Reaction Status Date / Time amoxicillin Allergy Intermediate Hives Verified 05/12/22 14:22 sulfamethoxazole Allergy Mild Unknown Verified 05/12/22 14:22 [From Bactrim] trimethoprim [From Bactrim] Allergy Mild Unknown Verified 05/12/22 14:22 Home Medications Medication Instructions Recorded Confirmed Type atorvastatin 40 mg tablet (Lipitor) 40 mg PO HS #30 tabs 07/26/21 06/30/22 Rx finasteride 5 mg tablet (Proscar) 5 mg PO QAM #90 tabs 11/04/21 06/30/22 Rx escitalopram oxalate 5 mg tablet 10 mg PO HS 10/27/22 04/04/23 History amiodarone 200 mg tablet 200 mg PO BID #60 tabs 02/26/22 06/30/22 Rx furosemide 20 mg tablet 20 mg PO DAILY #30 tabs 02/26/22 06/30/22 Rx spironolactone 25 mg tablet 12.5 mg PO DAILY #15 tabs 02/26/22 06/30/22 Rx metoprolol succinate 50 mg PO QAM 03/04/22 06/30/22 History levetiracetam 500 mg tablet 500 mg PO BID 06/30/22 06/30/22 History midodrine 2.5 mg tablet 2.5 mg PO TID 06/30/22 06/30/22 History Patient History Medical History Atrial fibrillation, new onset Dx June 2021 > digoxin, Coumadin > follows with Dr. Sim > pacemaker BPH (benign prostatic hyperplasia) CAD (coronary artery disease) Per cardio records- mild nonobstructive CAD (20% ostial LM, 25% mid LAD, ectatic LCX with 20% proximal stenosis and a 30% distal stenosis, 30% mid RCA), normal intracardiac filling pressure. History of COVID-16 Mar 2020 > "never tested", not hospitalized, "bad cold symptoms">resolved. Hx of basal cell carcinoma "Nose, back, chest" Hyperlipidemia Hypertension Nonischemic cardiomyopathy EF 20-30% S/p pacer/ICD placement Pacemaker Pacemaker/ACID. Placed 06/2021 [facility] > [employer] Pericardial effusion RBBB Stroke Approx 7 yrs ago > no residual effects, mild stroke per pt > no neuro Ventricular tachycardia Pacemaker/ICD in place Surgical History History of cardiac cath 06/2021 > [facility] > no stents; f/u Dr. Sim History of colonoscopy History of tooth extraction Family History Father Colorectal cancer Social History Smoking Status: Never smoker Second Hand Exposure: No; Hx Alcohol Use: No Hx Substance Use: No Preferred Language: Japanese Communication Ability: Effective Tyre Builder Required: No Beliefs That Will Affect Care: None marital status: Current Living Situation: Alone Feels Safe at Home: Yes Assistive Devices: None Review of Systems Review of Systems: All systems reviewed & are unremarkable except as noted in HPI & below Physical Exam Physical Exam: aaox3, NAD NC/AT, EOMI Supple No JVD Nrl S1/S2, No murmur CTA b/l no w/r/r soft nt/nd no LE edema b/l skin intact no focal deficits ICD site well healed Results & Data Vital Signs (Past 12 Hours) Vital Signs Temp Pulse Resp BP Pulse Ox O2 Del Method 07/01/22 11:54 37.0 C 71 18 109/76 95 Room Air 07/01/22 11:47 75 20 110/77 94 Room Air 07/01/22 07:20 36.9 C 94 H 18 104/81 95 Room Air
--- NOTE | 2022-07-01 16:43 | Hospitalist Progress Note ---
Date of Service July 01, 2022 Assessment & Plan (1) Sustained VT (ventricular tachycardia): (2) Nonobstructive cardiomyopathy: (3) Chronic HFrEF (heart failure with reduced ejection fraction): (4) Hypertension: Plan: Sustained ventricular tachycardia Acute on chronic heart 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 AICD discharge --CXR:Cardiomegaly. No evidence for overt pulmonary edema. Small left and trace right pleural effusions with bibasilar opacities. --ECHO: Left ventricle is moderately dilated. Moderate sized inferior and inferolateral wall motion abnormality with akinesis of the segments of the basal and mid levels. Otherwise moderate to severe global hypokinesis present. Left ventricle systolic function is severely reduced. EF 25 to 29%. Moderate mitral regurgitation. Moderate tricuspid regurgitation. Moderate pulmonary hypertension is present. Diastolic dysfunction, grade 2, small left pleural effusion. --Continue amiodarone 200 mg twice daily, metoprolol 50 mg twice daily Continue mexiletine 150 mg daily ICD settings adjusted Appreciate cardiology input EP consulted for possible VT ablation Chronic transaminitis Mild Monitor Hyperlipidemia On statin Nonobstructive coronary artery disease H/O CVA Continue home meds Seizure Disorder Continue Keppra DVT Px: -Teds, SCDs CODE STATUS Full code Admission and Anticipated Discharge Date Admission Date: June 30, 2022 Subjective Patient is seen and examined at bedside Device is is interrogated this morning Denies any chest pain, dyspnea, dizziness, nausea, abdominal pain Family at bedside Discussed with cardiology today No other complaints Review of Systems Review of Systems: All systems reviewed & are unremarkable except as noted in Subjective Physical Exam Physical Exam: Physical Exam: Vitals signs as noted above General Appearance: Thin, frail, elderly, no apparent distress Head: normocephalic, Atraumatic Eyes: normal inspection, EOMI Neck: supple, Trachea midline Respiratory/Chest: Decreased breath sounds, CTA, No accessory muscle use Cardiovascular: S1, S2,+ murmur Abdomen/GI:Soft, Non tender, Bowel sounds present Extremities/Musculoskeletal:normal inspection, Trace pedal edema Neurologic/Psych:AAOX3, grossly no focal neurological deficits Skin: normal color, warm Results & Data Results & Data Vital Signs (Past 12 Hours) Vital Signs Temp Pulse Resp BP Pulse Ox O2 Del Method 07/01/22 15:41 36.8 C 73 19 102/73 96 Room Air 07/01/22 11:54 37.0 C 71 18 109/76 95 Room Air 07/01/22 11:47 75 20 110/77 94 Room Air 07/01/22 07:20 36.9 C 94 H 18 104/81 95 Room Air Laboratory Results Short CBC 07/01/22 Range/Units 06:16 WBC 8.47 (4.8-10.8) K/ul Hgb 13.7 L (14.0-18.0) g/dl Hct 40.2 L (42.0-52.0) % Plt Count 225 (130-400) K/uL BMP 07/01/22 06:16 Sodium 137 Potassium 3.9 Chloride 105 Carbon Dioxide 25 BUN 22 Creatinine 1.09 Glucose 89 Calcium 8.8 Liver Function 07/01/22 Range/Units 06:16 Total Bilirubin 1.0 (0.2-1.0) mg/dl AST 43 H (13-39) U/L ALT 66 H (7-52) U/L Alkaline Phosphatase 80 (34-104) U/L Albumin 3.4 (3.4-5.0) gm/dl
[2022-07-01] MEDS: ESCITALOPRAM OXALATE 10 MG TAB PO SCH (20:29)
[2022-07-01] MEDS: ATORVASTATIN 40 MG TAB PO SCH (20:29)
[2022-07-02 07:48] LABS: Hematocrit (blood only) 40.5 % (42.0-52.0); Hemoglobin 13.7 g/dl (14.0-18.0); Mean Corpuscular Hemoglobin 33.2 pg (25.0-34.0); Mean Corpuscular Hgb Conc 33.8 g/dL (32.0-36.0); Mean Corpuscular Volume 98.1 fL (80.0-100.0); Mean Platelet Volume 9.5 fL (9.4-12.4); Platelet Count 212 K/uL (130-400); RDW Coefficient of Variation 14.3 % (11.5-14.5); RDW Standard Deviation 51.9 fL (36.4-46.3); Red Blood Count 4.13 M/uL (4.70-6.10); White Blood Count 7.68 K/ul (4.8-10.8)
[2022-07-02 08:04] LABS: Albumin Globulin Ratio 1.3 (0.9-2); Albumin Level 3.4 gm/dl (3.4-5.0); Bilirubin,Total 1.1 mg/dl (0.2-1.0); Calcium 8.7 mg/dl (8.6-10.3); Creatinine Clr Calc Pharmacy 50.5 ml/min; Est GFR (African American) 76.2 ml/min; Est GFR (Non-African American) 65.8 ml/min; Globulin 2.7 gm/dl (2.5-4.0); Potassium 3.9 mmol/L (3.5-5.1); Total Protein 6.1 gm/dl (6.0-8.3)
[2022-07-02] MEDS: SPIRONOLACTONE 12.5 MG TAB PO SCH (08:13)
[2022-07-02] MEDS: levETIRAcetam 500 MG TAB PO SCH (08:13)
[2022-07-02] MEDS: AMIODARONE 200 MG TAB PO SCH (08:13)
[2022-07-02] MEDS: FINASTERIDE 5 MG TAB PO SCH (08:13)
[2022-07-02] MEDS: MEXILETINE HCL 150 MG CAPSULE PO SCH ×2 (08:13→12:10)
[2022-07-02] MEDS: MIDODRINE HCL 2.5 MG TAB PO SCH ×2 (08:14→13:45)
[2022-07-02] MEDS: METOPROLOL SUCC 50MG EXT REL TAB PO SCH (09:00)
--- NOTE | 2022-07-02 10:59 | Cardiology Progress Note ---
Date of Service July 02, 2022 Assessment & Plan (1) Acute on chronic heart 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: (2) Sustained VT (ventricular tachycardia): (3) AICD discharge: Plan Repeat echocardiogram this admission reveals ongoing severe left ventricular systolic dysfunction, ejection fraction the range of 25- 29%. Although he has been felt to have a nonischemic cardiomyopathy with left ventricular systolic dysfunction that was out of proportion to the degree of coronary heart disease as noted on cardiac catheterization in 2021, he does have chronic findings of akinesis of the basal inferior, inferolateral segments consistent with scar, and I question if this may be the origin of his ventricular tachycardia. Electrophysiology input noted and appreciated. Device settings changed with regards to lowering the detection threshold for ventricular tachycardia, and modifying the treatment strategies favoring antitachycardia pacing attempts prior to defibrillation. The patient's case was discussed in a multidisciplinary fashion yesterday. At this point, patient is clinically improved. Will tentatively proceed with discharge today with planned outpatient electrophysiology study, possible high risk ventricular tachycardia ablation to be performed at [facility] in the near future. Stable for discharge on mexiletine 150 milligrams three times daily (New medication) Increase midodrine to 5 milligrams three times daily. Continue prior to hospital treatment with amiodarone 200 milligrams twice daily Metoprolol succinate 50 milligrams twice daily. Atorvastatin 40 milligrams daily spironolactone 12.5 milligrams daily furosemide 20 milligrams daily escitalopram 10 milligrams daily bedtime Keppra 500 milligrams twice daily I called [facility] outpatient [facility]. The mexiletine is available, however apparently not covered by his insurance. I spoke to the pharmacist there and they were able to find a cost savings to reduce the mexiletine from around $160 / month to around $50 per month. Post hospital follow up with me on 07/21/22 , Yvonne Damico, at 1030 am. (rescheduled from 07/20 as I am away that day). I called and spoke to his daughter, Jasmyne. 45 minutes spent on direct patient care including performing a history and physical exam on the patient, counseling him with regards to treatment options, coordinating care with other providers including speaking to the outpatient pharmacist in his daughter by telephone, and placing the appropriate prescriptions and reaching his post hospital cardiology follow-up visit and completing this documentation. Admission and Anticipated Discharge Date Admission Date: June 30, 2022 Subjective Patient seen in general cardiology follow-up of ventricular tachycardia,acute on chronic heart failure with reduced ejection fraction due to a non ischemic CM. Patient notes that he had a restful evening. Telemetry reveals AV paced rhythm in the 70s. His most recent episode of ventricular tachycardia was on 07/01/2022 at 4:19 a.m. with successful antitachycardia pacing and subsequent termination at that time. Review of Systems Review of Systems: All systems reviewed & are unremarkable except as noted in HPI & below Physical Exam Constitutional: + thin Respiratory: Auscultation: + diminished lung sounds ( decreased breath sounds at left base) Cardiovascular: Rate/Rhythm: regular rate and regular rhythm Heart Sounds: no murmur Vessels: no JVD Extremities: no edema Chest (Breasts): Additional Comments: left infraclavicular device pocket, clean dry and intact, no erythema Gastrointestinal (Abdomen): normal bowel sounds, soft, nontender, no hepatosplenomegaly Neurologic: PERRL, EOMI, accommodation nl, no face palsy, no dysarthria Results & Data Vital Signs (Past 12 Hours) Vital Signs Temp Pulse Pulse Resp BP Pulse Ox O2 Del Method 07/02/22 09:00 71 07/02/22 09:00 Room Air 07/02/22 07:45 36.8 C 71 19 113/81 95 Room Air 07/02/22 04:00 36.5 C 72 114/72 97 Room Air 07/01/22 23:53 36.9 C 74 17 116/80 94 Room Air 07/01/22 22:45 70 Laboratory Results Cardiac Enzymes 07/02/22 Range/Units 07:11 AST 46 H (13-39) U/L CBC 07/02/22 Range/Units 07:11 WBC 7.68 (4.8-10.8) K/ul RBC 4.13 L (4.70-6.10) M/uL Hgb 13.7 L (14.0-18.0) g/dl Hct 40.5 L (42.0-52.0) % Plt Count 212 (130-400) K/uL Comprehensive Metabolic Panel 07/02/22 Range/Units 07:11 Sodium 137 (136-145) mmol/L Potassium 3.9 (3.5-5.1) mmol/L Chloride 106 (98-107) mmol/L Carbon Dioxide 25 (21-32) mmol/L BUN 22 (6-23) mg/dl Creatinine 1.05 (0.6-1.4) mg/dl Glucose 88 (70-99(Fasting)) mg/dl Calcium 8.7 (8.6-10.3) mg/dl AST 46 H (13-39) U/L ALT 75 H (7-52) U/L Alkaline Phosphatase 76 (34-104) U/L Total Protein 6.1 (6.0-8.3) gm/dl Albumin 3.4 (3.4-5.0) gm/dl Intake and Output 07/01/22 07/02/22 07/02/22 22:59 06:59 14:59 Intake Total 120 / 720 100 / 720 Output Total Balance 120 / 718 100 / 718 - Intake: Oral 120 / 720 100 / 720 Output: # Bowel Movements Other: # Unmeasured Voids 03 29
--- NOTE | 2022-07-02 13:16 | Hospitalist Progress Note ---
Date of Service July 02, 2022 Assessment & Plan (1) Sustained VT (ventricular tachycardia): (2) Nonobstructive cardiomyopathy: (3) Chronic HFrEF (heart failure with reduced ejection fraction): (4) Hypertension: Plan: Sustained ventricular tachycardia Acute on chronic heart 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 AICD discharge --CXR:Cardiomegaly. No evidence for overt pulmonary edema. Small left and trace right pleural effusions with bibasilar opacities. --ECHO: Left ventricle is moderately dilated. Moderate sized inferior and inferolateral wall motion abnormality with akinesis of the segments of the basal and mid levels. Otherwise moderate to severe global hypokinesis present. Left ventricle systolic function is severely reduced. EF 25 to 29%. Moderate mitral regurgitation. Moderate tricuspid regurgitation. Moderate pulmonary hypertension is present. Diastolic dysfunction, grade 2, small left pleural effusion. --Continue amiodarone 200 mg twice daily, metoprolol 50 mg twice daily Continue mexiletine 150 mg TID Appreciate cardiology input Electrophysiology input appreciated:ICD settings adjusted Midodrine dose increased to 5 mg 3 times daily Plan to discharge home today Needs follow up with Cardiology upon discharge Chronic transaminitis Mild Monitor Hyperlipidemia On statin Nonobstructive coronary artery disease H/O CVA Continue home meds Seizure Disorder Continue Keppra DVT Px: -Teds, SCDs CODE STATUS Full code Admission and Anticipated Discharge Date Admission Date: June 30, 2022 Subjective Patient is seen and examined at bedside States feeling well today No new complaints Denies any chest pain, dyspnea, dizziness, nausea, abdominal pain Discussed with today Plan to discharge home today Review of Systems Review of Systems: All systems reviewed & are unremarkable except as noted in Subjective Physical Exam Physical Exam: Physical Exam: Vitals signs as noted above General Appearance: Thin, frail, elderly, no apparent distress Head: normocephalic, Atraumatic Eyes: normal inspection, EOMI Neck: supple, Trachea midline Respiratory/Chest: Decreased breath sounds, CTA, No accessory muscle use Cardiovascular: S1, S2,+ murmur Abdomen/GI:Soft, Non tender, Bowel sounds present Extremities/Musculoskeletal:normal inspection, Trace pedal edema Neurologic/Psych:AAOX3, grossly no focal neurological deficits Skin: normal color, warm Results & Data Results & Data Vital Signs (Past 12 Hours) Vital Signs Temp Pulse Pulse Resp BP Pulse Ox O2 Del Method 07/02/22 11:08 36.8 C 81 21 99/72 L 96 Room Air 07/02/22 09:00 71 07/02/22 09:00 Room Air 07/02/22 07:45 36.8 C 71 19 113/81 95 Room Air 07/02/22 04:00 36.5 C 72 114/72 97 Room Air Laboratory Results Short CBC 07/02/22 Range/Units 07:11 WBC 7.68 (4.8-10.8) K/ul Hgb 13.7 L (14.0-18.0) g/dl Hct 40.5 L (42.0-52.0) % Plt Count 212 (130-400) K/uL BMP 07/02/22 07:11 Sodium 137 Potassium 3.9 Chloride 106 Carbon Dioxide 25 BUN 22 Creatinine 1.05 Glucose 88 Calcium 8.7 Liver Function 07/02/22 Range/Units 07:11 Total Bilirubin 1.1 H (0.2-1.0) mg/dl AST 46 H (13-39) U/L ALT 75 H (7-52) U/L Alkaline Phosphatase 76 (34-104) U/L Albumin 3.4 (3.4-5.0) gm/dl
--- NOTE | 2022-07-02 13:38 | Discharge Summary ---
Date of Service July 02, 2022 Admission HPI Per Admitting Provider This is an 82-year-old male with PMHx of nonobstructive CAD, HTN, HLD, history of CVA in 2017, history of A-fib/flutter with RVR, new onset nonischemic cardiomyopathy, right bundle branch block, biventricular pacemaker AICD in place. Patient presented to outpatient cardiology office this morning and saw Dr. Sim, found to be in sustained V. tach. He has been recently seen in the outpatient office on 06/09 and on 06/16 due to AICD discharge. He has been having episodes of feeling hot, flushed and device interrogation revealed 54- second run of sustained V. tach with unsuccessful antitachycardia pacing, and ICD discharge with 35 J converting to normal sinus rhythm. Per outpatient epic notes he also had a 11 beat run of V. tach that responded to antitachycardia pacing on 06/27. Today there is concern that his ATP termination did not function appropriately. Dr. Sim has been in contact with Dr. Rae and has recommended the patient be admitted for observation, evaluation of the device and mexiletine titration pending electrolytes are within normal ranges. Patient's daughter is present with him at bedside and assisted in the hip history. He states that this morning around 9 AM he again began feeling hot, with flush sensation where he again hears the alarm, and it fires, however he does not pass/lose consciousness during these events. He feels better afterwards on most occasions. Today this again happened while he happened to be at the cardiology office around 1 PM. He admits that this has been happening more frequently, and daughter states that it may even happen at least once per day in the last 2 weeks. He feels well currently, no complaints of chest discomfort, pain, shortness of breath, lightheadedness or dizziness. Denies any recent illnesses, has been eating and drinking well. Is compliant with all medications and took them this morning. Lives at home with his and his other daughter. Admission Exam Per Admitting Provider General: awake, alert, no apparent distress, appears chronically ill, + Thin Head: Normocephalic, atraumatic ENT: PERRL, EOMI, no pharyngeal exudate, mucous membranes moist Chest: Clear to auscultation, on room air, no adventitious breath sounds Cardiac: AICD in left upper chest wall, regular rate and rhythm, no murmur, no JVD, normal peripheral pulses, good capillary refill Abdominal: NABS x 4 quadrants, soft, nondistended, nontender to palpation, no rebound or guarding Extremities: Normal inspection, no peripheral edema or erythema, calfs nontender to palpation Psych: Normal mood and affect Neuro: AAO x 3, strength intact bilaterally and rated 5/5, no motor deficits, speech is clear, no peripheral sensory deficits Principal Diagnosis Sustained ventricular tachycardia Acute on chronic heart 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 AICD discharge Discharge Data Allergies Allergy/AdvReac Type Severity Reaction Status Date / Time amoxicillin Allergy Intermediate Hives Verified 05/12/22 14:22 sulfamethoxazole Allergy Mild Unknown Verified 05/12/22 14:22 [From Bactrim] trimethoprim [From Bactrim] Allergy Mild Unknown Verified 05/12/22 14:22 Consultations 06/30/22 14:44 ED Decision to Admit Stat 06/30/22 15:57 Consult Cardiology Routine 07/01/22 08:18 Consult Cardiac Electrophysiology Routine Procedures Performed Laboratory Results WBC 7.68 K/ul (4.8-10.8) 07/02/22 07:11 RBC 4.13 M/uL (4.70-6.10) L 07/02/22 07:11 Hgb 13.7 g/dl (14.0-18.0) L 07/02/22 07:11 Hct 40.5 % (42.0-52.0) L 07/02/22 07:11 MCV 98.1 fL (80.0-100.0) 07/02/22 07:11 MCH 33.2 pg (25.0-34.0) 07/02/22 07:11 MCHC 33.8 g/dL (32.0-36.0) 07/02/22 07:11 RDW Std Deviation 51.9 fL (36.4-46.3) H 07/02/22 07:11 RDW Coeff of Gertrudis 14.3 % (11.5-14.5) 07/02/22 07:11 Plt Count 212 K/uL (130-400) 07/02/22 07:11 MPV 9.5 fL (9.4-12.4) 07/02/22 07:11 Immature Gran % (Auto) 0.9 % 04/04/23 13:25 Neut % (Auto) 72.7 % 06/30/22 13:25 Lymph % (Auto) 15.6 % 06/30/22 13:25 Guadalupe % (Auto) 10.1 % 06/30/22 13:25 Eos % (Auto) 0.3 % 06/30/22 13:25 Baso % (Auto) 0.4 % 06/30/22 13:25 Neut # (Auto) 6.49 K/uL (1.40-6.50) 06/30/22 13:25 Lymph # (Auto) 1.39 K/uL (1.2-3.4) 06/30/22 13:25 Guadalupe # (Auto) 0.90 K/uL (0.11-0.59) H 06/30/22 13:25 Eos # (Auto) 0.03 K/uL (0-0.50) 06/30/22 13:25 Baso # (Auto) 0.04 K/uL (0-0.2) 06/30/22 13:25 Immature Gran # (Auto) 0.08 K/uL (0.01-0.20) 06/30/22 13:25 PT 11.0 Seconds (9.0-12.0) 06/30/22 13:25 INR 1.0 (0.9-1.1) 06/30/22 13:25 Sodium 137 mmol/L (136-145) 07/02/22 07:11 Potassium 3.9 mmol/L (3.5-5.1) 07/02/22 07:11 Chloride 106 mmol/L (98-107) 07/02/22 07:11 Carbon Dioxide 25 mmol/L (21-32) 07/02/22 07:11 Anion Gap 6 (3-11) 07/02/22 07:11 BUN 22 mg/dl (6-23) 07/02/22 07:11 Creatinine 1.05 mg/dl (0.6-1.4) 07/02/22 07:11 Est Cr Clr Drug Dosing 50.5 ml/min 07/02/22 07:11 Est GFR ( Amer) 76.2 ml/min 07/02/22 07:11 Est GFR (Non-Af Amer) 65.8 ml/min 07/02/22 07:11 BUN/Creatinine Ratio 21.0 (10-20) H 07/02/22 07:11 Glucose 88 mg/dl (70-99(Fasting)) 07/02/22 07:11 Calcium 8.7 mg/dl (8.6-10.3) 07/02/22 07:11 Phosphorus 3.1 mg/dl (2.5-4.9) 07/01/22 06:16 Magnesium 2.0 mg/dl (1.7-2.4) 07/02/22 07:11 Total Bilirubin 1.1 mg/dl (0.2-1.0) H 07/02/22 07:11 AST 46 U/L (13-39) H 07/02/22 07:11 ALT 75 U/L (7-52) H 07/02/22 07:11 Alkaline Phosphatase 76 U/L (34-104) 07/02/22 07:11 Troponin I High Sens 17.3 pg/ml (0-20) 06/30/22 13:25 Total Protein 6.1 gm/dl (6.0-8.3) 07/02/22 07:11 Albumin 3.4 gm/dl (3.4-5.0) 07/02/22 07:11 Globulin 2.7 gm/dl (2.5-4.0) 07/02/22 07:11 Albumin/Globulin Ratio 1.3 (0.9-2) 07/02/22 07:11 Lipase 30 U/L (11-82) 06/30/22 13:25 TSH 2.225 uIu/ml (0.300-4.500) 06/30/22 13:25 Nasal Screen MRSA (PCR) Negative (Negative) 06/30/22 16:08 SARS-CoV-2, RNA, NAAT NEGATIVE (NEGATIVE) 06/30/22 13:44 Impressions Chest X-Ray 06/30/22 13:29 XR chest 1V portable CLINICAL HISTORY: Chest pain, nonspecific COMPARISON STUDY: Chest CT February 15, 2022. Chest radiograph March 04, 2022. FINDINGS: Left subclavian pacer/AICD is in place. There is no pneumothorax. Small left and trace right pleural effusions are present. Bibasilar opacities have improved since prior exam. Cardiomegaly is noted. Pulmonary vascular congestion has improved. IMPRESSION: 1. Cardiomegaly. No evidence for overt pulmonary edema. 2. Small left and trace right pleural effusions with bibasilar opacities. ACT 112: Negative or not required by law. Electronically signed by: Rakan Li M.D. 06/30/2022 2:25 PM Hospital Course (1) Sustained VT (ventricular tachycardia): (2) Nonobstructive cardiomyopathy: (3) Chronic HFrEF (heart failure with reduced ejection fraction): (4) Hypertension: Sustained ventricular tachycardia Acute on chronic heart 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 AICD discharge --CXR:Cardiomegaly. No evidence for overt pulmonary edema. Small left and trace right pleural effusions with bibasilar opacities. --ECHO: Left ventricle is moderately dilated. Moderate sized inferior and inferolateral wall motion abnormality with akinesis of the segments of the basal and mid levels. Otherwise moderate to severe global hypokinesis present. Left ventricle systolic function is severely reduced. EF 25 to 29%. Moderate mitral regurgitation. Moderate tricuspid regurgitation. Moderate pulmonary hypertension is present. Diastolic dysfunction, grade 2, small left pleural effusion. --Continue amiodarone 200 mg twice daily, metoprolol 50 mg twice daily Continue mexiletine 150 mg TID Appreciate cardiology input Electrophysiology input appreciated:ICD settings adjusted Midodrine dose increased to 5 mg 3 times daily Plan to discharge home today Needs follow up with Cardiology upon discharge Chronic transaminitis Mild Monitor Hyperlipidemia On statin Nonobstructive coronary artery disease H/O CVA Continue home meds Seizure Disorder Continue Keppra DVT Px: -Teds, SCDs CODE STATUS Full code Total Time Total Time Spent Total Time Spent (In Minutes): 76 minutes Discharge Plan Discharge Items Patient Disposition: Home - Self-Care Reason For Visit: VTACH Discharge Diagnosis: Sustained ventricular tachycardia Acute on chronic heart 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 AICD discharge Activity: Per Instructions section Exercise/Sports: Wait until after follow-up appointment Non-emergency contact: Primary Care Provider and Engineering Leader Call non-emergency contact if: you have any medication questions, your symptoms worsen, your pain is concerning for you and you have a fever Follow-up/Referrals: Mack Sim DO [Engineering Leader] - (Date & Time 07/21/2022 10:30 [facility] Flores [facility], [facility] ) Cee Pope CRNP [Primary Care Provider] - (Date & Time 07/06/2022 3:20 PMProvider Yovani Goodwin, [facility] ) Diet: Heart Healthy Addtl Attending Provider Instructions: Follow-up with your primary care physician Cee PARK in 1 week Follow-up with your special education para professional // as advised Seek immediate medical attention if your symptoms reoccur or worsen Please take all medications as instructed on discharge list below. Please call if you have any questions or problems. You can reach a [facility] hospitalist on duty at [facility] 24 hours a day by calling [phone] Call your Primary Care doctor if any of the following symptoms or problems start or get worse: * Shortness of breath or difficulty breathing * Wake up at night short of breath * Chest pain * Cough * Swelling of your hands, feet, or legs * More fatigued or tired with your normal activity * Palpitations - sudden fast heart beats WEIGHT * Weigh yourself every morning after using the bathroom. * Use the same scale. * Wear the same amount of clothing. * Write your weight down on a chart. * Call your Primary Care doctor if you gain more than 2-3 pounds in 1-2 days. MEDICATIONS * Use this discharge instruction sheet for medication instructions. * Take your medications at the time your doctor ordered. * Do not skip a dose of your medicines. * If you miss a dose of medicine, take it as soon as possible, but DO NOT DOUBLE A DOSE. * Read your medicine information when you get home. * Know all of the side effects of your medicine. If in doubt, ask your pharmacist * Call your Primary Care doctor's office if you have any side effects. * Be sure all of your doctors know what medicine and herbs you take (including cold, flu, and herbal medicine). Take the following with you to your follow-up doctor appointments: * Weight Chart * Medication List * List of questions Do not drink excessive alcohol, beer or wine. Pending Studies at Discharge: No Stand-Alone Forms: My [facility], Smoking Cessation Medications and DC Order Prescriptions: New mexiletine 150 mg Capsule 150 mg PO TIDM Qty: 60 0RF metoprolol succinate 50 mg tablet extended release 24 hr 50 mg PO BID Qty: 60 0RF Continued finasteride [Proscar] 5 mg tablet 5 mg PO QAM Qty: 90 3RF atorvastatin [Lipitor] 40 mg tablet 40 mg PO HS Qty: 30 0RF levetiracetam 500 mg tablet 500 mg PO BID amiodarone 200 mg Tablet 200 mg PO BID Qty: 60 0RF escitalopram oxalate 5 mg tablet 10 mg PO HS spironolactone 25 mg Tablet 12.5 mg PO DAILY Qty: 15 0RF furosemide 20 mg tablet 20 mg PO DAILY Qty: 30 0RF Changed midodrine 2.5 mg tablet 5 mg PO TID Qty: 1 0RF Discontinued metoprolol succinate 50 mg PO QAM Discharge Orders: Discharge Order (Routine); Ordered 07/02/22 Ordered By: Noel Turner Admission Data Admit Date/Time: 06/30/22 14:39 Attending Provider: Noel Turner Admit Provider: Jaylon Burt Primary Care Provider: Cee Pope Other Providers: Jaylon Burt ; David Stein ; Randi Rae
[2022-07-06 11:34] LABS: iSTAT Creatinine 1.2 mg/dl (0.6-1.3); iSTAT Hemoglobin 15.3 g/dl (14.0-18.0); iSTAT Ionized Calcium 1.19 mmol/l (1.12-1.32)
== END 2022-07-02 14:57 | disposition home or self-care (01) | DRG 308 ==
LOC: ED 13:20 → EDINP 14:39 → SUATTDRO 14:39 → 2E 15:57

== ENCOUNTER 2022-07-11 09:53 | Inpatient (IN) ==
[2022-07-11 10:22] LABS: Basophils # (auto) 0.04 K/uL (0-0.2); Basophils % (auto) 0.5 %; Eosinophils # (auto) 0.04 K/uL (0-0.50); Eosinophils % (auto) 0.5 %; Hematocrit (blood only) 44.5 % (42.0-52.0); Hemoglobin 14.7 g/dl (14.0-18.0); Immature Granulocytes # (auto) 0.09 K/uL (0.01-0.20); Immature Granulocytes % (auto) 1.1 %; Lymphocytes # (auto) 1.21 K/uL (1.2-3.4); Lymphocytes % (auto) 14.8 %; Mean Corpuscular Hemoglobin 32.7 pg (25.0-34.0); Mean Corpuscular Volume 99.1 fL (80.0-100.0); Mean Platelet Volume 9.5 fL (9.4-12.4); Monocytes # (auto) 0.73 K/uL (0.11-0.59); Neutrophils # (auto) 6.04 K/uL (1.40-6.50); Neutrophils % (auto) 74.1 %; Platelet Count 265 K/uL (130-400); RDW Coefficient of Variation 14.5 % (11.5-14.5); RDW Standard Deviation 52.8 fL (36.4-46.3); Red Blood Count 4.49 M/uL (4.70-6.10); White Blood Count 8.15 K/ul (4.8-10.8)
--- NOTE | 2022-07-11 10:30 | Emergency Department Note ---
Impression & Plan Defibrillator discharge, Ventricular tachycardia ED Provider Note INFORMANT: Patient ED PROVIDER(S): Bj Elise MD CHIEF COMPLAINT: Defibrillator discharge PLAN: Disposition: Admitted Condition: Good Outpatient prescription management: none Referral: None MEDICAL DECISION MAKING: Patient presented because of defibrillator discharge. Pacemaker was interrogated blood work performed. Patient's CBC and chemistry panel was unremarkable however his troponin was minimally elevated. Discussed with [employer] sales representative health insurance after pacemaker interrogation. The patient had multiple episodes of SVT and ventricular tachycardia starting on July 09 that were resolved with overdrive pacing. Today he had 2 episodes of ventricular tachycardia that required two 35 J shocks for successful treatment. Consultation was placed with [facility], Dr. Sim. Case was discussed and diagnostics were reviewed. He evaluated patient in the emergency department. He felt the patient is a difficult case and did consult with [facility] Chavarria. The patient will be admitted here and placed on an amiodarone drip which he had ordered. He did contact the hospitalist service. Patient was admitted for further management. After review of the information above and other included data, I feel the patient requires admission. Triage Nursing notes reviewed and agree them. Vital Signs: reviewed and remarkable for no significant abnormalities Prior /Outside records reviewed: Prior hospitalization records reviewed regarding his V. tach. Differential diagnosis: Ventricular tachycardia, premature contractions, electrolyte abnormality, ca rdiac dysrhythmia, thyroid dysfunction, pulmonary embolism, infection, gastrointestinal, as well as other pathologies. Diagnostics, as interpreted by me: ECG: Twelve-lead ECG reveals a AV dual paced rhythm at [address] elevation. There are inferior T wave inversions and nonspecific ST findings laterally which are unchanged from July 01, 2022. Cardiac Monitoring: Cardiac monitoring ordered by me: The patient was placed on continuous cardiac monitoring and observed. It revealed a paced rhythm at 83 bpm. Medical decision rules: none Imaging studies: Chest x-ray performed reveals ICD present as well as mild CHF. HPI: The patient is a 82year old male who presents to the Emergency Room with complaints of defibrillator discharge. This started this morning and is noted to have occurred twice. Patient was eating breakfast.. The patient also notes the following associated symptoms, feeling warm, hot flash, and generally weak. This is happened before when he has had ventricular tachycardia and usually results in his defibrillator firing. He noted 2 episodes of being shocked today. He is scheduled to have an ablation done on August 11 by [facility]. The patient has taken no medication today for relieving factors. Current pain is rated as 0/10. Pt denies LOC, headache, fevers, chills, diaphoresis, neck pain, chest pain, breathing difficulties, nausea, vomiting, abdominal pain, back pain, numbness, or other complaints. PAST MEDICAL HISTORY: See Below, ischemic cardiomyopathy PAST SURGICAL HISTORY: See Below, pacemaker defibrillator SOCIAL HISTORY: See Below, HOME MEDICATIONS: See Below ALLERGIES: See Below VITALS: See Below PHYSICAL EXAMINATION: GENERAL: Awake, alert, [id number], in no distress HENT: Normocephalic, atraumatic. Oropharynx unremarkable. EYES: Normal conjunctiva. Sclera non-icteric. NECK: Inspection normal. Non-tender. Supple. No nuchal rigidity. FROM. No masses. RESPIRATORY: Clear to auscultation. No wheezes. No rales. Normal respiratory effort. CARDIAC: Normal rate. Normal rhythm. No murmurs. No rubs. Extremities warm and well perfused. Pulses equal. No JVD. GI: Soft, non-distended. No tenderness to palpation. No rebound or guarding. No masses. RECTAL: Deferred. MUSCULOSKELETAL: Atraumatic. Chest examination reveals no tenderness. Defibrillator in the left upper chest without swelling or tenderness. The back is symmetrical on inspection without obvious abnormality. There is no CVA tenderness to palpation. No joint edema. LOWER EXTREMITIES: Calves are equal size bilaterally and non-tender. No edema. No discoloration. NEURO: Normal sensorium. No sensory or motor deficits noted. SKIN: No rash or jaundice noted. Past Med/Surg History Medical History Atrial fibrillation, new onset Dx June 2021 > digoxin, Coumadin > follows with Dr. Sim > pacemaker BPH (benign prostatic hyperplasia) CAD (coronary artery disease) Per cardio records- mild nonobstructive CAD (20% ostial LM, 25% mid LAD, ectatic LCX with 20% proximal stenosis and a 30% distal stenosis, 30% mid RCA), normal intracardiac filling pressure. History of COVID-16 Mar 2020 > "never tested", not hospitalized, "bad cold symptoms">resolved. Hx of basal cell carcinoma "Nose, back, chest" Hyperlipidemia Hypertension Nonischemic cardiomyopathy EF 20-30% S/p pacer/ICD placement Pacemaker Pacemaker/ACID. Placed 06/2021 [facility] > [employer] Pericardial effusion RBBB Stroke Approx 7 yrs ago > no residual effects, mild stroke per pt > no neuro Ventricular tachycardia Pacemaker/ICD in place Surgical History History of cardiac cath 06/2021 > [facility] > no stents; f/u Dr. Sim History of colonoscopy History of tooth extraction Family History Father Colorectal cancer Social History Smoking Status: Former smoker Second Hand Exposure: No; Do You Dip or Chew Tobacco: No; Tobacco Cessation Education Requested by Patient: No Hx Alcohol Use: No Hx Substance Use: No Preferred Language: Salvadorean Communication Ability: Effective District Captain Required: No Beliefs That Will Affect Care: None marital status: Current Living Situation: Spouse and Family Other Information That Helps Us Care for You: No Feels Safe at Home: Yes Safety Concerns: Feels Safe At This Time Assistive Devices: Denture - Upper Allergies Allergies Allergy/AdvReac Type Severity Reaction Status Date / Time amoxicillin Allergy Intermediate Hives Verified 05/12/22 14:22 sulfamethoxazole Allergy Mild Unknown Verified 05/12/22 14:22 [From Bactrim] trimethoprim [From Bactrim] Allergy Mild Unknown Verified 05/12/22 14:22 Home Meds Home Medications Medication Instructions Recorded Confirmed escitalopram oxalate 5 mg tablet 10 mg PO HS 01/22/22 07/11/22 levetiracetam 500 mg tablet 500 mg PO BID 06/30/22 07/11/22 furosemide 20 mg tablet 20 mg PO Q OTHER DAY 07/11/22 07/11/22 furosemide 20 mg tablet 40 mg PO Q OTHER DAY 07/11/22 07/11/22 Previous Rx's Medication Instructions Recorded atorvastatin 40 mg tablet (Lipitor) 40 mg PO HS #30 tabs 07/26/21 finasteride 5 mg tablet (Proscar) 5 mg PO QAM #90 tabs 11/04/21 spironolactone 25 mg tablet 12.5 mg PO DAILY #15 tabs 02/26/22 amiodarone 200 mg tablet 200 mg PO BID #60 tabs 07/02/22 metoprolol succinate 50 mg 50 mg PO BID #60 tabs 07/02/22 tablet,extended release 24 hr mexiletine 150 mg capsule 150 mg PO TIDM #60 caps 07/02/22 midodrine 2.5 mg tablet 5 mg PO TID #1 tab 07/02/22 Results & Data (ED) Vital Signs Vital Signs - 24 hr 07/11/22 09:53 07/11/22 09:57 07/11/22 09:58 Temperature 36.6 C Temperature Source Oral Pulse Rate 76 85 Pulse Rate from SpO2 Sensor 84 Respiratory Rate 19 26 H Respiratory Effort / Characteristics Non-Labored Respiratory Depth Normal Respiratory Pattern Regular Blood Pressure 101/85 101/85 Blood Pressure Mean 90 90 Pulse Oximetry 97 97 96 Oxygen Delivery Method Room Air Room Air Sepsis Recent Fever Within 48 Hours No Sepsis New/Unexplained Change in Mental Status N/A Sepsis Action Taken by Nursing No Action Required 07/11/22 10:00 07/11/22 10:30 07/11/22 10:30 Temperature Temperature Source Pulse Rate 75 83 79 Pulse Rate from SpO2 Sensor 76 Respiratory Rate 20 25 H Respiratory Effort / Characteristics Respiratory Depth Respiratory Pattern Blood Pressure 113/86 101/80 Blood Pressure Mean 95 87 Pulse Oximetry 94 Oxygen Delivery Method Sepsis Recent Fever Within 48 Hours Sepsis New/Unexplained Change in Mental Status Sepsis Action Taken by Nursing 07/11/22 11:00 07/11/22 11:30 07/11/22 12:00 Temperature Temperature Source Pulse Rate 69 70 70 Pulse Rate from SpO2 Sensor Respiratory Rate 18 21 24 Respiratory Effort / Characteristics Respiratory Depth Respiratory Pattern Blood Pressure 97/71 L 95/72 L 103/72 Blood Pressure Mean 79 79 82 Pulse Oximetry 95 Oxygen Delivery Method Sepsis Recent Fever Within 48 Hours Sepsis New/Unexplained Change in Mental Status Sepsis Action Taken by Nursing 07/11/22 12:30 07/11/22 13:00 07/11/22 14:00 Temperature Temperature Source Pulse Rate 75 70 69 Pulse Rate from SpO2 Sensor 72 69 Respiratory Rate 24 22 22 Respiratory Effort / Characteristics Respiratory Depth Respiratory Pattern Blood Pressure 103/75 111/83 94/71 L Blood Pressure Mean 84 92 78 Pulse Oximetry 95 92 Oxygen Delivery Method Sepsis Recent Fever Within 48 Hours Sepsis New/Unexplained Change in Mental Status Sepsis Action Taken by Nursing Laboratory Data 07/11/22 10:02 07/11/22 10:02 Lab Results 07/11/22 07/11/22 07/11/22 Range/Units 10:02 10:02 10:02 WBC 8.15 (4.8-10.8) K/ul RBC 4.49 L (4.70-6.10) M/uL Hgb 14.7 (14.0-18.0) g/dl Hct 44.5 (42.0-52.0) % MCV 99.1 (80.0-100.0) fL MCH 32.7 (25.0-34.0) pg MCHC 33.0 (32.0-36.0) g/dL RDW Std Deviation 52.8 H (36.4-46.3) fL RDW Coeff of Gertrudis 14.5 (11.5-14.5) % Plt Count 265 (130-400) K/uL MPV 9.5 (9.4-12.4) fL Immature Gran % (Auto) 1.1 % Neut % (Auto) 74.1 % Lymph % (Auto) 14.8 % [place] % (Auto) 9.0 % Eos % (Auto) 0.5 % Baso % (Auto) 0.5 % Neut # (Auto) 6.04 (1.40-6.50) K/uL Lymph # (Auto) 1.21 (1.2-3.4) K/uL [place] # (Auto) 0.73 H (0.11-0.59) K/uL Eos # (Auto) 0.04 (0-0.50) K/uL Baso # (Auto) 0.04 (0-0.2) K/uL Immature Gran # (Auto) 0.09 (0.01-0.20) K/uL Sodium 135 L (136-145) mmol/L Potassium 3.5 (3.5-5.1) mmol/L Chloride 105 (98-107) mmol/L Carbon Dioxide 27 (21-32) mmol/L Anion Gap 3 (3-11) BUN 22 (6-23) mg/dl Creatinine 1.22 (0.6-1.4) mg/dl Est Cr Clr Drug Dosing 45.2 ml/min Est GFR ( Amer) 63.6 ml/min Est GFR (Non-Af Amer) 54.9 ml/min BUN/Creatinine Ratio 18.0 (10-20) Glucose 150 H (70-99(Fasting)) mg/dl Calcium 8.9 (8.6-10.3) mg/dl Magnesium 1.9 (1.7-2.4) mg/dl Total Bilirubin 0.9 (0.2-1.0) mg/dl AST 53 H (13-39) U/L ALT 123 H (7-52) U/L Alkaline Phosphatase 101 (34-104) U/L Troponin I High Sens 32.4 H (0-20) pg/ml Total Protein 6.6 (6.0-8.3) gm/dl Albumin 3.7 (3.4-5.0) gm/dl Globulin 2.9 (2.5-4.0) gm/dl Albumin/Globulin Ratio 1.3 (0.9-2) TSH 2.018 (0.300-4.500) uIu/ml SARS-CoV-2, RNA, NAAT (NEGATIVE) 07/11/22 Range/Units 12:25 WBC (4.8-10.8) K/ul RBC (4.70-6.10) M/uL Hgb (14.0-18.0) g/dl Hct (42.0-52.0) % MCV (80.0-100.0) fL MCH (25.0-34.0) pg MCHC (32.0-36.0) g/dL RDW Std Deviation (36.4-46.3) fL RDW Coeff of Gertrudis (11.5-14.5) % Plt Count (130-400) K/uL MPV (9.4-12.4) fL Immature Gran % (Auto) % Neut % (Auto) % Lymph % (Auto) % [place] % (Auto) % Eos % (Auto) % Baso % (Auto) % Neut # (Auto) (1.40-6.50) K/uL Lymph # (Auto) (1.2-3.4) K/uL [place] # (Auto) (0.11-0.59) K/uL Eos # (Auto) (0-0.50) K/uL Baso # (Auto) (0-0.2) K/uL Immature Gran # (Auto) (0.01-0.20) K/uL Sodium (136-145) mmol/L Potassium (3.5-5.1) mmol/L Chloride (98-107) mmol/L Carbon Dioxide (21-32) mmol/L Anion Gap (3-11) BUN (6-23) mg/dl Creatinine (0.6-1.4) mg/dl Est Cr Clr Drug Dosing ml/min Est GFR ( Amer) ml/min Est GFR (Non-Af Amer) ml/min BUN/Creatinine Ratio (10-20) Glucose (70-99(Fasting)) mg/dl Calcium (8.6-10.3) mg/dl Magnesium (1.7-2.4) mg/dl Total Bilirubin (0.2-1.0) mg/dl AST (13-39) U/L ALT (7-52) U/L Alkaline Phosphatase (34-104) U/L Troponin I High Sens (0-20) pg/ml Total Protein (6.0-8.3) gm/dl Albumin (3.4-5.0) gm/dl Globulin (2.5-4.0) gm/dl Albumin/Globulin Ratio (0.9-2) TSH (0.300-4.500) uIu/ml SARS-CoV-2, RNA, NAAT NEGATIVE (NEGATIVE) Administered Medications Amiodarone HCl (Amiodarone 200 Mg Tab) 200 mg PO BID XUAN Stop: 08/10/22 20:59 Last Admin: 07/12/22 07:58 Dose: 200 mg Documented By: Admin: 07/11/22 20:02 Dose: 200 mg Documented By: MTR Atorvastatin Calcium (Atorvastatin 40 Mg Tab) 40 mg PO HS XUAN Stop: 08/10/22 20:59 Last Admin: 07/11/22 20:03 Dose: 40 mg Documented By: MTR Escitalopram Oxalate (Escitalopram Oxalate 10 Mg Tab) 10 mg PO HS XUAN Stop: 08/10/22 20:59 Last Admin: 07/11/22 20:03 Dose: 10 mg Documented By: MTR Finasteride (Finasteride 5 Mg Tab) 5 mg PO QA XUAN Stop: 08/11/22 08:59 Last Admin: 07/12/22 07:58 Dose: 5 mg Documented By: KTS Furosemide (Furosemide 20 Mg Tab) 20 mg PO Q48H XUAN Stop: 08/10/22 14:53 Last Admin: 07/11/22 16:02 Dose: 20 mg Documented By: BUD Amiodarone HCl/Dextrose (Nexterone / D5w) 360 mg in 200 mls @ 33.333 mls/hr IV .Q6H XUAN Stop: 08/10/22 11:59 Last Admin: 07/12/22 04:46 Dose: 1 mg/min, 33.3 mls/hr Documented By: GABY Co-signed By: PK Infusion: 07/12/22 04:46 Dose: 1 mg/min, 33.3 mls/hr Documented By: MTR Co-signed By: PK Admin: 07/11/22 22:54 Dose: 1 mg/min, 33.3 mls/hr Documented By: GABY Co-signed By: BRA Infusion: 07/11/22 22:54 Dose: 1 mg/min, 33.3 mls/hr Documented By: GABY Co-signed By: BRA Admin: 07/11/22 18:14 Dose: 1 mg/min, 33.3 mls/hr Documented By: BUD Co-signed By: NMS Infusion: 07/11/22 18:05 Dose: 0 mg/min, 0 mls/hr Documented By: BUD Co-signed By: NMS Admin: 07/11/22 12:15 Dose: 1 mg/min, 33.3 mls/hr Documented By: SHERRI Co-signed By: AM Levetiracetam (Levetiracetam 500 Mg Tab) 500 mg PO BID XUAN Stop: 08/10/22 20:59 Last Admin: 07/12/22 07:59 Dose: 500 mg Documented By: Admin: 07/11/22 20:03 Dose: 500 mg Documented By: GABY Magnesium Oxide (Magnesium Oxide 400 Mg Tab) 400 mg PO QAM XUAN Stop: 08/11/22 08:59 Last Admin: 07/12/22 08:42 Dose: 400 mg Documented By: BUD Melatonin (Melatonin 3 Mg Tab) 3 mg PO HS PRN PRN Reason: Sleep Stop: 08/10/22 23:10 Last Admin: 07/11/22 23:42 Dose: 3 mg Documented By: GABY Metoprolol Succinate (Metoprolol Succ 50mg Ext Rel Tab) 50 mg PO BID XUAN Stop: 08/10/22 20:59 Last Admin: 07/12/22 07:59 Dose: 50 mg Documented By: Admin: 07/11/22 20:02 Dose: 50 mg Documented By: GABY Mexiletine HCl (Mexiletine Hcl 150 Mg Capsule) 150 mg PO TIDM XUAN Stop: 08/10/22 16:59 Last Admin: 07/12/22 07:58 Dose: 150 mg Documented By: Admin: 07/11/22 16:02 Dose: 150 mg Documented By: BUD Midodrine (Midodrine Hcl 2.5 Mg Tab) 2.5 mg PO TID XUAN Stop: 08/10/22 20:59 Last Admin: 07/12/22 07:59 Dose: 2.5 mg Documented By: Admin: 07/11/22 20:03 Dose: 2.5 mg Documented By: GABY Spironolactone (Spironolactone 12.5 Mg Tab) 12.5 mg PO DAILY XUAN Stop: 08/11/22 08:59 Last Admin: 07/12/22 07:59 Dose: 12.5 mg Documented By: BUD Discontinued Medications Potassium Chloride (Potassium Chloride Crtab 20 Meq Tabcr) 20 meq PO NOW STA Stop: 07/11/22 12:20 Last Admin: 07/11/22 12:26 Dose: 20 meq Documented By: SHERRI Potassium Chloride (Potassium Chloride Crtab 20 Meq Tabcr) 40 meq PO NOW STA Stop: 07/12/22 08:00 Last Admin: 07/12/22 08:04 Dose: 40 meq Documented By: BUD Discharge Plan Visit Data Chief Complaint: Cardiac Assessment Stated Complaint: CARDIAC, PACER FIRED TWICE ED Provider: Bj Elise Discharge Problem: Defibrillator discharge, Ventricular tachycardia Patient Disposition: Admitted As Inpatient Discharge Instructions Interventions: ED Discharge Assessment Last Done: 07/11/22 14:54
[2022-07-11 10:36] LABS: Albumin Globulin Ratio 1.3 (0.9-2); Albumin Level 3.7 gm/dl (3.4-5.0); Bilirubin,Total 0.9 mg/dl (0.2-1.0); Calcium 8.9 mg/dl (8.6-10.3); Creatinine Clr Calc Pharmacy 45.2 ml/min; Est GFR (African American) 63.6 ml/min; Est GFR (Non-African American) 54.9 ml/min; Globulin 2.9 gm/dl (2.5-4.0); Magnesium 1.9 mg/dl (1.7-2.4); Potassium 3.5 mmol/L (3.5-5.1); Total Protein 6.6 gm/dl (6.0-8.3)
[2022-07-11 10:42] LABS: Troponin I High Sensitivity 32.4 pg/ml (0-20)
[2022-07-11] MEDS ORDERED: 0.2 MICRON FILTER SET 1 EACH IV ONE (11:49)
--- NOTE | 2022-07-11 12:06 | Electrocardiogram Report ---
Test Reason : Blood Pressure : / mmHG Vent. Rate : 088 BPM Atrial Rate : 088 BPM P-R Int : 130 ms QRS Dur : 158 ms QT Int : 418 ms P-R-T Axes : 075 086 -77 degrees QTc Int : 505 ms AV dual-paced rhythm Abnormal ECG When compared with ECG of 01-JUL-2022 04:24, Vent. rate has increased BY 17 BPM Confirmed by Heath Wagner ([id number]) on 07/11/2022 12:06:13 PM Referred By: REFERRED SELF Confirmed By:Raphael Wagner
--- NOTE | 2022-07-11 12:07 | Cardiology Consultation ---
Date of Consultation July 11, 2022 Assessment & Plan (1) Ventricular tachycardia: (2) Defibrillator discharge: (3) Chronic HFrEF (heart failure with reduced ejection fraction): - Patient with complex history as noted above -Despite close outpatient cardiology follow-up and recent admission, continues to have symptomatic episodes of ventricular tachycardia. -Ejection fraction 25% on echocardiogram performed earlier this month with noted basal inferior, inferolateral scar. -Diagnostics: Obtain amiodarone and mexiletine levels. -Therapeutics: Continue prior to hospital treatment with metoprolol succinate 50 mg twice daily, furosemide 20 mg every other day, spironolactone 12.5 mg daily, midodrine 5 mg 3 times daily, atorvastatin 40 mg daily, amiodarone 200 mg twice daily, mexiletine 150 mg 3 times daily. -Reload with IV amiodarone, no bolus, 1 mg/min infusion ongoing. -We will likely increase oral amiodarone dose after IV infusion. -The same mexiletine dose will be continued for now as he feels that this is likely his maximum tolerated dose. -We will coordinate with electrophysiology [facility] with regards to moving up his planned ablation appointment. Case discussed with Dr Woodruff and Dr Sullivan for purpose of coordination of care. 60 minutes were spent on direct patient care from 1130 to 12:30 PM including review of history and today's data, performing a history and physical exam, counseling patient with regards to findings and treatment options, discussing case with other providers as above, and preparing this document. History of Present Illness History of Present Illness Mr Musa is an 82 year old male seen in cardiology consultation per the request of Dr Elise for the evaluation of recurrent symptomatic ventricular tachycardia and ICD discharges. Patient seen in ED room A11B. He has accompanied by his spouse Hoda, and his daughter, Jasmyne. Patient is well-known to the undersigned as I have followed him on an inpatient and outpatient basis for the last year. He had recently been admitted from 06/30/2022 until 07/02/2022 for recurrent ventricular tachycardia and ICD discharges. At that time settings were changed on his AICD to lower the heart rate at which the ventricular tachycardia episodes would be detected to a level of 140 bpm, and the treatment strategy was changed to allow for more antitachycardia pacing attempts prior to ICD discharges. His prior to hospital treatment with amiodarone 200 mg twice daily was continued, and mexiletine 150 mg 3 times daily was added. The patient improved clinically, and his frequency of ventricular tachycardia improved on telemetry and he was subsequently discharged with a tentative plan to be seen by electrophysiology at [facility] with tentative considerations for ventricular tachycardia ablation which is currently scheduled to be performed on 08/11/2022. The patient's family had reached out to me by portal message earlier this week with some concerns that he was shaky and had generalized weakness. We changed his furosemide from 20 mg daily to 20 mg every other day. I recommended reduction in his mexiletine dose to 150 mg twice daily. The patient reduce the furosemide dose, but the next day he was feeling well and he has since remained on the mexiletine 150 mg 3 times daily so that dose was not actually decreased. This morning the patient had multiple "hot flash "episodes that have previously been noted to correlate with his episodes of VT. He subsequently received 2 ICD discharges. He arrived to the emergency department via EMS. He has been hemodynamically stable. His device was interrogated. It would appear that from 07/01/2022 up until 07/09/2012 the frequency of the VT episodes had improved. Since 07/09/2022 he has had multiple events often times a few seconds, upwards to a minute. This morning, he took his medications around 8 AM. By 824 he is noted to have multiple episodes of sustained ventricular tachycardia. Antitachycardia pacing was successful on several occasions, but ultimately he received 2 ICD discharges the second of which took place at 840 this morning. At present, he is comfortable in the emergency department and feels well. Cardiac History: -Admission(07/21/2021 until 07/26/2021)following sustained ventricular tachycardia with resultant syncope, status post cardioversion in the field Atrial fibrillation/flutter with a rapid ventricular response of unknown duration noted on admission; [id number] Score of at least 6 points -July 22, 2021 Coronary Angiography ([facility], Dr. Saavedra) with mild nonobstructive CAD (20% ostial LM, 25% mid LAD, ectatic LCX with 20% proximal stenosis and a 30% distal stenosis, 30% mid RCA), normal intracardiac filling pressure. -New onset nonischemic cardiomyopathy with NYHA Class II+ CHF, EF 25-30%, right bundle branch block with QRS duration 162 ms (possibly a component of tachycardia induced cardiomyopathy, however unfortunately left ventricular systolic function has not improved status post rate control, cardioversion, biventricular pacemaker AICD) -Status post biventricular pacemaker defibrillator implantation on 07/25/[address] Rae. -Intermittent gross hematuria while on heparin; evaluation by Urology 07/24/2021, with cystoscopy, CT of the abdomen pelvis, findings of enlarged prostate, bladder stone -admission, [facility] , 01/21/2022 until 01/26/2022, presenting with generalized weakness, relative hypotension, with systolic blood pressure in the 90s to low 100s, [facility], [id number] pericardial effusion with CT findings suggestive hemopericardium. This prompted discontinuation of warfarin. Lisinopril discontinued, metoprolol succinate 100 milligrams twice daily reduced to 50 milligrams daily, diuretics held -admission, [facility], 02/23/2022-02/26/2022, acute on chronic heart failure with reduced ejection fraction, appropriate AICD shock prior to hospitalization -03/04/2022, he had a seizure episode that night prompting presentation to the emergency department at [facility]. A CT of the brain performed that evening 03/04/2022 revealed bilateral mixed attenuation subdural hematomas as well as a fracture of the left zygomatic arch. Both of these findings were new compared to a previous CT performed 11/18/2021. - appropriate AICD discharge 06/13/2022, 06/30/2022, VT while on amiodarone 200 milligrams twice daily - 06/30/2022 until 07/02/2022 for recurrent ventricular tachycardia and ICD discharges. At that time settings were changed on his AICD to lower the heart rate at which the ventricular tachycardia episodes would be detected to a level of 140 bpm, and the treatment strategy was changed to allow for more antitachycardia pacing attempts prior to ICD discharges. His prior to hospital treatment with amiodarone 200 mg twice daily was continued, and mexiletine 150 mg 3 times daily was added. -Mildly abnormal TSH -Hypertension -Dyslipidemia -History of CVA, 2017 Allergies Allergy/AdvReac Type Severity Reaction Status Date / Time amoxicillin Allergy Intermediate Hives Verified 05/12/22 14:22 sulfamethoxazole Allergy Mild Unknown Verified 05/12/22 14:22 [From Bactrim] trimethoprim [From Bactrim] Allergy Mild Unknown Verified 05/12/22 14:22 Home Medications Medication Instructions Recorded Confirmed Type atorvastatin 40 mg tablet (Lipitor) 40 mg PO HS #30 tabs 07/26/21 06/30/22 Rx finasteride 5 mg tablet (Proscar) 5 mg PO QAM #90 tabs 11/04/21 06/30/22 Rx escitalopram oxalate 5 mg tablet 10 mg PO HS 01/22/22 06/30/22 History furosemide 20 mg tablet 20 mg PO DAILY #30 tabs 02/26/22 06/30/22 Rx spironolactone 25 mg tablet 12.5 mg PO DAILY #15 tabs 02/26/22 06/30/22 Rx levetiracetam 500 mg tablet 500 mg PO BID 06/30/22 06/30/22 History amiodarone 200 mg tablet 200 mg PO BID #60 tabs 07/02/22 Rx metoprolol succinate 50 mg 50 mg PO BID #60 tabs 07/02/22 Rx tablet,extended release 24 hr mexiletine 150 mg capsule 150 mg PO TIDM #60 caps 07/02/22 Rx midodrine 2.5 mg tablet 5 mg PO TID #1 tab 07/02/22 06/30/22 Rx Patient History Medical History Atrial fibrillation, new onset Dx June 2021 > digoxin, Coumadin > follows with Dr. Sim > pacemaker BPH (benign prostatic hyperplasia) CAD (coronary artery disease) Per cardio records- mild nonobstructive CAD (20% ostial LM, 25% mid LAD, ectatic LCX with 20% proximal stenosis and a 30% distal stenosis, 30% mid RCA), normal intracardiac filling pressure. History of COVID-16 Mar 2020 > "never tested", not hospitalized, "bad cold symptoms">resolved. Hx of basal cell carcinoma "Nose, back, chest" Hyperlipidemia Hypertension Nonischemic cardiomyopathy EF 20-30% S/p pacer/ICD placement Pacemaker Pacemaker/ACID. Placed 06/2021 [facility] > [employer] Pericardial effusion RBBB Stroke Approx 7 yrs ago > no residual effects, mild stroke per pt > no neuro Ventricular tachycardia Pacemaker/ICD in place Surgical History History of cardiac cath 06/2021 > [facility] > no stents; f/u Dr. Sim History of colonoscopy History of tooth extraction Family History Father Colorectal cancer Social History Smoking Status: Never smoker Second Hand Exposure: No; Hx Alcohol Use: No Hx Substance Use: No Preferred Language: Finnish Communication Ability: Effective Flatbed Stitcher Required: No Beliefs That Will Affect Care: None marital status: Current Living Situation: Alone Feels Safe at Home: Yes Assistive Devices: None Review of Systems Review of Systems: All systems reviewed & are unremarkable except as noted in HPI & below Physical Exam Constitutional: WD/WN, vitals as above Respiratory: Auscultation: + diminished lung sounds (Mildly reduced breath sounds at the bases bilaterally) Cardiovascular: RRR, no murmur, no edema Chest (Breasts): Chest: + pacemaker (Left infraclavicular AICD pocket clean dry intact, no erythema) Neurologic: PERRL, EOMI, accommodation nl, no face palsy, no dysarthria Results & Data Vital Signs (Past 12 Hours) Vital Signs Temp Pulse Resp BP Pulse Ox O2 Del Method 07/11/22 11:30 70 21 95/72 L 07/11/22 11:00 69 18 97/71 L 07/11/22 10:30 79 25 H 101/80 07/11/22 10:30 83 07/11/22 10:00 75 20 113/86 94 07/11/22 09:58 85 26 H 101/85 96 07/11/22 09:57 97 Room Air 07/11/22 09:53 36.6 C 76 19 101/85 97 Room Air Laboratory Results Cardiac Enzymes 07/11/22 Range/Units 10:02 AST 53 H (13-39) U/L Troponin I High Sens 32.4 H (0-20) pg/ml CBC 07/11/22 Range/Units 10:02 WBC 8.15 (4.8-10.8) K/ul RBC 4.49 L (4.70-6.10) M/uL Hgb 14.7 (14.0-18.0) g/dl Hct 44.5 (42.0-52.0) % Plt Count 265 (130-400) K/uL Neut # (Auto) 6.04 (1.40-6.50) K/uL Lymph # (Auto) 1.21 (1.2-3.4) K/uL Irwin # (Auto) 0.73 H (0.11-0.59) K/uL Eos # (Auto) 0.04 (0-0.50) K/uL Baso # (Auto) 0.04 (0-0.2) K/uL Comprehensive Metabolic Panel 07/11/22 Range/Units 10:02 Sodium 135 L (136-145) mmol/L Potassium 3.5 (3.5-5.1) mmol/L Chloride 105 (98-107) mmol/L Carbon Dioxide 27 (21-32) mmol/L BUN 22 (6-23) mg/dl Creatinine 1.22 (0.6-1.4) mg/dl Glucose 150 H (70-99(Fasting)) mg/dl Calcium 8.9 (8.6-10.3) mg/dl AST 53 H (13-39) U/L ALT 123 H (7-52) U/L Alkaline Phosphatase 101 (34-104) U/L Total Protein 6.6 (6.0-8.3) gm/dl Albumin 3.7 (3.4-5.0) gm/dl
[2022-07-11] MEDS: AMIODARONE / D5W 360 MG/200 ML BAG IV SCH ×3 (12:15→22:54)
[2022-07-11] MEDS ORDERED: POTASSIUM CHLORIDE CRTAB 20 MEQ TABCR PO STA (12:19)
--- NOTE | 2022-07-11 12:37 | XRay Report ---
SINGLE VIEW CHEST CLINICAL HISTORY: Congestive heart failure. FINDINGS: An AP, portable, upright chest radiograph is compared to study dated 06/30/2022 and correlate d with chest CT dated 02/23/2022. A 3-lead cardiac AICD is unchanged in position. The heart is enlarg ed noting atherosclerotic calcification of the thoracic aorta. There is pulmonary vascular congestion and mild interstitial edema. Small pleural effusions are noted with dependent atelectasis. No pneumo thorax is seen. The skeletal structures are osteopenic. The bony thorax is grossly intact. Arthritic change is seen in the shoulders with numerous calcified joint bodies on the right. IMPRESSION: 1. Cardiomegaly and AICD with evidence of congestive failure and mild pulmonary edema. Radiographic f ollow-up to resolution is recommended. 2. Small pleural effusions with dependent atelectasis. ACT 112: Negative or not required by law. Electronically signed by: John Leonardo M.D. 07/11/2022 12:36 PM
--- NOTE | 2022-07-11 13:27 | History & Physical Report ---
Date of Service July 11, 2022 Assessment & Plan (1) Ventricular tachycardia: Plan: -Further management per Cardiology: Currently being continued on amiodarone 200mg BID, mexiletine 150mg TID, also being loaded on IV amiodarone. -received 20mEq KCl oral in ER (2) Defibrillator discharge: (3) Nonobstructive cardiomyopathy: Plan: (4) Paroxysmal atrial fibrillation: Plan: -Previously on coumadin but not on it currently for history of Subdural hematoma and hemopericardium (5) BPH (benign prostatic hyperplasia): Plan: -finasteride 5mg daily (6) Chronic HFrEF (heart failure with reduced ejection fraction): Plan: -euvolemic currently -continue lasix 20mg every other day, toprol 50mg BID, spironolactone 12.5mg daily -not on ACEI/ARB presumably for hypotension since he is also on midodrine 2.5mg TID (7) Nonischemic cardiomyopathy: Plan Seizure disorder -keppra 500mg BID DVT ppx SQ heparin Admit to PCU History of Present Illness Chief Complaint: V tach, ICD firing Primary Care Provider: VIVIAN Stovall Mr Kilo Musa is a 82 year old man with a complex history which includes Atrial fibrillation previously on coumadin, Subdural hematoma, seizure disorder, non ischemic cardiomyopathy with EF 20-30% s/p AICD, non obstructive CAD, HTN, stroke, and recurrent V tach presents to [facility] today after awaking today and experiencing facial flushing (usual presentation of his VT) and subsequent 2 ICD firings around 820-840AM this morning. He was recently admitted here from 07/01/22 to 07/09/22 for recurrent VT during which time his ICD firing threshold was reduced and he was started on mexilitine in addition to amiodarone which he was on previously with plan for outpatient follow up with [facility] [facility] for VT ablation which is scheduled for 08/11/22. In the past 2 weeks, his family had contacted Cardiology due to patient feeling weak and shaky and his furosemide dose was reduced and his mexilitine dose was also reduced but he felt better so he continued his prior mexilitine dose. He was doing reasonable well until this morning when he experienced the facial flushing and ICD firings. His ICD device was interrogated earlier in ER and showed multiple runs of VT starting on 07/09 and this morning had sustained VT episodes some of which were successfully paced out but ultimately he received 2 ICD shocks. He was seen in ER by Cardiology and I discussed case with Dr Sim whom he is well known to. We will admit here for medical management of his VT with plan to contact EP to see whether his ablation can be moved up. Patient currently feels well and denies chest pain, shortness of breath of discomfort. Allergies Allergy/AdvReac Type Severity Reaction Status Date / Time amoxicillin Allergy Intermediate Hives Verified 05/12/22 14:22 sulfamethoxazole Allergy Mild Unknown Verified 05/12/22 14:22 [From Bactrim] trimethoprim [From Bactrim] Allergy Mild Unknown Verified 05/12/22 14:22 Home Medications Medication Instructions Recorded Confirmed Type atorvastatin 40 mg tablet (Lipitor) 40 mg PO HS #30 tabs 07/26/21 07/11/22 Rx finasteride 5 mg tablet (Proscar) 5 mg PO QAM #90 tabs 11/04/21 07/11/22 Rx escitalopram oxalate 5 mg tablet 10 mg PO HS 01/22/22 07/11/22 History spironolactone 25 mg tablet 12.5 mg PO DAILY #15 tabs 02/26/22 07/11/22 Rx levetiracetam 500 mg tablet 500 mg PO BID 06/30/22 07/11/22 History amiodarone 200 mg tablet 200 mg PO BID #60 tabs 07/02/22 07/11/22 Rx metoprolol succinate 50 mg 50 mg PO BID #60 tabs 07/02/22 07/11/22 Rx tablet,extended release 24 hr mexiletine 150 mg capsule 150 mg PO TIDM #60 caps 07/02/22 07/11/22 Rx midodrine 2.5 mg tablet 5 mg PO TID #1 tab 07/02/22 07/11/22 Rx furosemide 20 mg tablet 20 mg PO Q OTHER DAY 07/11/22 07/11/22 History furosemide 20 mg tablet 40 mg PO Q OTHER DAY 07/11/22 07/11/22 History Past Med/Surg History Medical History Atrial fibrillation, new onset Dx June 2021 > digoxin, Coumadin > follows with Dr. Sim > pacemaker BPH (benign prostatic hyperplasia) CAD (coronary artery disease) Per cardio records- mild nonobstructive CAD (20% ostial LM, 25% mid LAD, ectatic LCX with 20% proximal stenosis and a 30% distal stenosis, 30% mid RCA), normal intracardiac filling pressure. History of COVID-16 Mar 2020 > "never tested", not hospitalized, "bad cold symptoms">resolved. Hx of basal cell carcinoma "Nose, back, chest" Hyperlipidemia Hypertension Nonischemic cardiomyopathy EF 20-30% S/p pacer/ICD placement Pacemaker Pacemaker/ACID. Placed 06/2021 [facility] > [employer] Pericardial effusion RBBB Stroke Approx 7 yrs ago > no residual effects, mild stroke per pt > no neuro Ventricular tachycardia Pacemaker/ICD in place Surgical History History of cardiac cath 06/2021 > [facility] > no stents; f/u Dr. Sim History of colonoscopy History of tooth extraction Family History Father Colorectal cancer Social History Smoking Status: Never smoker Second Hand Exposure: No; Hx Alcohol Use: No Hx Substance Use: No Preferred Language: Ukrainian Communication Ability: Effective Broadcast News Producer Required: No Beliefs That Will Affect Care: None marital status: Current Living Situation: Alone Feels Safe at Home: Yes Assistive Devices: None Review of Systems Review of Systems: As above in HPI, remaining ROS otherwise negative Physical Exam Physical Exam: Appears well, no acute distress, appears stated age ENMT: normocephalic, atraumatic, mucous membrane moist Respiratory: Breathing comfortably on room air, no wheezing/rhonchi/rales Cardiovascular: regular rate and rhythm, no murmurs/rubs Gastrointestinal (Abdomen): soft, non tender, non distended Musculoskeletal: No edema, no cyanosis or clubbing Skin: no rash, no redness, no ulcer noted on exposed skin Neurologic: awake, alert, spontaneously moving extremities Psychiatric: affect normal, speech linear, non pressured Results & Data Results & Data Vital Signs (Past 12 Hours) Vital Signs Temp Pulse Resp BP Pulse Ox O2 Del Method 07/11/22 12:00 70 24 103/72 95 07/11/22 11:30 70 21 95/72 L 07/11/22 11:00 69 18 97/71 L 07/11/22 10:30 79 25 H 101/80 07/11/22 10:30 83 07/11/22 10:00 75 20 113/86 94 07/11/22 09:58 85 26 H 101/85 96 07/11/22 09:57 97 Room Air 07/11/22 09:53 36.6 C 76 19 101/85 97 Room Air
[2022-07-11] MEDS ORDERED: POLYETHYLENE (MIRALAX) 17 GM PACK PO PRN (14:54)
[2022-07-11] MEDS ORDERED: ACETAMINOPHEN 325 MG TAB PO PRN (14:54)
[2022-07-11] MEDS: MEXILETINE HCL 150 MG CAPSULE PO SCH (16:02)
[2022-07-11] MEDS: FUROSEMIDE 20 MG TAB PO SCH (16:02)
[2022-07-11] MEDS: AMIODARONE 200 MG TAB PO SCH (20:02)
[2022-07-11] MEDS: METOPROLOL SUCC 50MG EXT REL TAB PO SCH (20:02)
[2022-07-11] MEDS: ESCITALOPRAM OXALATE 10 MG TAB PO SCH (20:03)
[2022-07-11] MEDS: MIDODRINE HCL 2.5 MG TAB PO SCH (20:03)
[2022-07-11] MEDS: ATORVASTATIN 40 MG TAB PO SCH (20:03)
[2022-07-11] MEDS: levETIRAcetam 500 MG TAB PO SCH (20:03)
[2022-07-11] MEDS: MELATONIN 3 MG TAB PO PRN (23:42)
[2022-07-12] MEDS: AMIODARONE / D5W 360 MG/200 ML BAG IV SCH ×2 (04:46→10:59)
[2022-07-12 06:40] LABS: BUN Creatinine Ratio 15.8 (10-20); Calcium 8.7 mg/dl (8.6-10.3); Creatinine Clr Calc Pharmacy 46.5 ml/min; Est GFR (Non-African American) 59.6 ml/min; Magnesium 1.8 mg/dl (1.7-2.4); Potassium 3.4 mmol/L (3.5-5.1)
[2022-07-12] MEDS: MEXILETINE HCL 150 MG CAPSULE PO SCH ×3 (07:58→21:00)
[2022-07-12] MEDS: AMIODARONE 200 MG TAB PO SCH ×2 (07:58→21:01)
[2022-07-12] MEDS: FINASTERIDE 5 MG TAB PO SCH (07:58)
[2022-07-12] MEDS: levETIRAcetam 500 MG TAB PO SCH ×2 (07:59→21:00)
[2022-07-12] MEDS: METOPROLOL SUCC 50MG EXT REL TAB PO SCH ×2 (07:59→21:01)
[2022-07-12] MEDS: MIDODRINE HCL 2.5 MG TAB PO SCH ×3 (07:59→21:00)
[2022-07-12] MEDS: SPIRONOLACTONE 12.5 MG TAB PO SCH (07:59)
[2022-07-12] MEDS ORDERED: POTASSIUM CHLORIDE CRTAB 20 MEQ TABCR PO STA (07:59)
--- NOTE | 2022-07-12 07:59 | Hospitalist Progress Note ---
Date of Service July 12, 2022 Assessment & Plan (1) Ventricular tachycardia: Plan: -Further management per Cardiology: on amiodarone 200mg BID, mexiletine 150mg TID at home was loaded w/ IV amiodarone on admission - IV amio now stopped mexiletine increased to 300 BID - discussed w/ cardiology - monitor electrolytes, keep K>4 and Mg >2 (2) Defibrillator discharge: (3) Nonobstructive cardiomyopathy: Plan: (4) Paroxysmal atrial fibrillation: Plan: -Previously on coumadin but not on it currently for history of Subdural hematoma and hemopericardium (5) BPH (benign prostatic hyperplasia): Plan: -finasteride 5mg daily (6) Chronic HFrEF (heart failure with reduced ejection fraction): Plan: -euvolemic currently -continue lasix 20mg every other day, toprol 50mg BID, spironolactone 12.5mg daily -not on ACEI/ARB presumably for hypotension since he is also on midodrine 2.5mg TID (7) Nonischemic cardiomyopathy: Plan Seizure disorder -keppra 500mg BID DVT ppx SQ heparin Admit to PCU Admission and Anticipated Discharge Date Admission Date: July 11, 2022 Subjective Pt seen in follow up of Vtach Currently laying in bed, in no acute distress IV amiodarone now stopped Patient feeling overall better, no chest pain or shortness of breath, no palpitation Denies any fevers chills Reports some abdominal discomfort, however reports good appetite, and having BMs Cardiology following closely - discussed current plan Review of Systems Review of Systems: All systems reviewed & are unremarkable except as noted in Subjective Physical Exam Physical Exam: Physical Exam: elderly frail M i n NAD ENMT: normocephalic, at raumatic, mucous m embrane moist Respiratory: Breathing comfort ably on room air, no wheezing/rhonch i/rales Cardiovascular:I regular rate and rhythm, no murmurs /rubs Gastrointestinal ( Abdomen): soft, non tender, non distended Musculoskeletal: No edema, moves e xtremities Skin: warm, dry Neurologic: awake, alert, spe ech fluent, sponta neously moving ext remities Results & Data Results & Data Vital Signs (Past 12 Hours) Vital Signs Temp Pulse Pulse Resp BP Pulse Ox O2 Del Method 07/12/22 07:40 36.4 C L 69 18 117/79 90 Room Air 07/12/22 03:22 36.4 C L 72 18 109/73 93 Room Air 07/11/22 22:01 72 07/11/22 22:50 36.3 C L 78 18 109/77 93 Room Air Laboratory Results 07/12/22 07/11/22 07/11/22 Range/Units 05:22 12:25 11:53 WBC (4.8-10.8) K/ul RBC (4.70-6.10) M/uL Hgb (14.0-18.0) g/dl Hct (42.0-52.0) % MCV (80.0-100.0) fL MCH (25.0-34.0) pg MCHC (32.0-36.0) g/dL RDW Std Deviation (36.4-46.3) fL RDW Coeff of Gertrudis (11.5-14.5) % Plt Count (130-400) K/uL MPV (9.4-12.4) fL Immature Gran % (Auto) % Neut % (Auto) % Lymph % (Auto) % Tate % (Auto) % Eos % (Auto) % Baso % (Auto) % Neut # (Auto) (1.40-6.50) K/uL Lymph # (Auto) (1.2-3.4) K/uL Tate # (Auto) (0.11-0.59) K/uL Eos # (Auto) (0-0.50) K/uL Baso # (Auto) (0-0.2) K/uL Immature Gran # (Auto) (0.01-0.20) K/uL Sodium 139 (136-145) mmol/L Potassium 3.4 L (3.5-5.1) mmol/L Chloride 104 (98-107) mmol/L Carbon Dioxide 28 (21-32) mmol/L Anion Gap 7 (3-11) BUN 18 (6-23) mg/dl Creatinine 1.14 (0.6-1.4) mg/dl Est Cr Clr Drug Dosing 46.5 ml/min Est GFR ( Amer) 69.0 ml/min Est GFR (Non-Af Amer) 59.6 ml/min BUN/Creatinine Ratio 15.8 (10-20) Glucose 102 H (70-99(Fasting)) mg/dl Calcium 8.7 (8.6-10.3) mg/dl Magnesium 1.8 (1.7-2.4) mg/dl Total Bilirubin (0.2-1.0) mg/dl AST (13-39) U/L ALT (7-52) U/L Alkaline Phosphatase (34-104) U/L Troponin I High Sens (0-20) pg/ml Total Protein (6.0-8.3) gm/dl Albumin (3.4-5.0) gm/dl Globulin (2.5-4.0) gm/dl Albumin/Globulin Ratio (0.9-2) TSH (0.300-4.500) uIu/ml Amiodarone Desmethylamiodarone Mexiletine Pending SARS-CoV-2, RNA, NAAT NEGATIVE (NEGATIVE) 07/11/22 07/11/22 07/11/22 Range/Units 11:53 10:02 10:02 WBC (4.8-10.8) K/ul RBC (4.70-6.10) M/uL Hgb (14.0-18.0) g/dl Hct (42.0-52.0) % MCV (80.0-100.0) fL MCH (25.0-34.0) pg MCHC (32.0-36.0) g/dL RDW Std Deviation (36.4-46.3) fL RDW Coeff of Gertrudis (11.5-14.5) % Plt Count (130-400) K/uL MPV (9.4-12.4) fL Immature Gran % (Auto) % Neut % (Auto) % Lymph % (Auto) % Tate % (Auto) % Eos % (Auto) % Baso % (Auto) % Neut # (Auto) (1.40-6.50) K/uL Lymph # (Auto) (1.2-3.4) K/uL Tate # (Auto) (0.11-0.59) K/uL Eos # (Auto) (0-0.50) K/uL Baso # (Auto) (0-0.2) K/uL Immature Gran # (Auto) (0.01-0.20) K/uL Sodium 135 L (136-145) mmol/L Potassium 3.5 (3.5-5.1) mmol/L Chloride 105 (98-107) mmol/L Carbon Dioxide 27 (21-32) mmol/L Anion Gap 3 (3-11) BUN 22 (6-23) mg/dl Creatinine 1.22 (0.6-1.4) mg/dl Est Cr Clr Drug Dosing 45.2 ml/min Est GFR ( Amer) 63.6 ml/min Est GFR (Non-Af Amer) 54.9 ml/min BUN/Creatinine Ratio 18.0 (10-20) Glucose 150 H (70-99(Fasting)) mg/dl Calcium 8.9 (8.6-10.3) mg/dl Magnesium 1.9 (1.7-2.4) mg/dl Total Bilirubin 0.9 (0.2-1.0) mg/dl AST 53 H (13-39) U/L ALT 123 H (7-52) U/L Alkaline Phosphatase 101 (34-104) U/L Troponin I High Sens 32.4 H (0-20) pg/ml Total Protein 6.6 (6.0-8.3) gm/dl Albumin 3.7 (3.4-5.0) gm/dl Globulin 2.9 (2.5-4.0) gm/dl Albumin/Globulin Ratio 1.3 (0.9-2) TSH 2.018 (0.300-4.500) uIu/ml Amiodarone Pending Desmethylamiodarone Pending Mexiletine SARS-CoV-2, RNA, NAAT (NEGATIVE) 07/11/22 Range/Units 10:02 WBC 8.15 (4.8-10.8) K/ul RBC 4.49 L (4.70-6.10) M/uL Hgb 14.7 (14.0-18.0) g/dl Hct 44.5 (42.0-52.0) % MCV 99.1 (80.0-100.0) fL MCH 32.7 (25.0-34.0) pg MCHC 33.0 (32.0-36.0) g/dL RDW Std Deviation 52.8 H (36.4-46.3) fL RDW Coeff of Gertrudis 14.5 (11.5-14.5) % Plt Count 265 (130-400) K/uL MPV 9.5 (9.4-12.4) fL Immature Gran % (Auto) 1.1 % Neut % (Auto) 74.1 % Lymph % (Auto) 14.8 % Tate % (Auto) 9.0 % Eos % (Auto) 0.5 % Baso % (Auto) 0.5 % Neut # (Auto) 6.04 (1.40-6.50) K/uL Lymph # (Auto) 1.21 (1.2-3.4) K/uL Tate # (Auto) 0.73 H (0.11-0.59) K/uL Eos # (Auto) 0.04 (0-0.50) K/uL Baso # (Auto) 0.04 (0-0.2) K/uL Immature Gran # (Auto) 0.09 (0.01-0.20) K/uL Sodium (136-145) mmol/L Potassium (3.5-5.1) mmol/L Chloride (98-107) mmol/L Carbon Dioxide (21-32) mmol/L Anion Gap (3-11) BUN (6-23) mg/dl Creatinine (0.6-1.4) mg/dl Est Cr Clr Drug Dosing ml/min Est GFR ( Amer) ml/min Est GFR (Non-Af Amer) ml/min BUN/Creatinine Ratio (10-20) Glucose (70-99(Fasting)) mg/dl Calcium (8.6-10.3) mg/dl Magnesium (1.7-2.4) mg/dl Total Bilirubin (0.2-1.0) mg/dl AST (13-39) U/L ALT (7-52) U/L Alkaline Phosphatase (34-104) U/L Troponin I High Sens (0-20) pg/ml Total Protein (6.0-8.3) gm/dl Albumin (3.4-5.0) gm/dl Globulin (2.5-4.0) gm/dl Albumin/Globulin Ratio (0.9-2) TSH (0.300-4.500) uIu/ml Amiodarone Desmethylamiodarone Mexiletine SARS-CoV-2, RNA, NAAT (NEGATIVE) Medications Administered Current Inpatient Medications Acetaminophen (Acetaminophen 325 Mg Tab) 650 mg PO Q4H PRN PRN Reason: Pain or Fever Stop: 08/10/22 14:53 Amiodarone HCl (Amiodarone 200 Mg Tab) 200 mg PO BID XUAN Stop: 08/10/22 20:59 Last Admin: 07/12/22 07:58 Dose: 200 mg Atorvastatin Calcium (Atorvastatin 40 Mg Tab) 40 mg PO HS XUAN Stop: 08/10/22 20:59 Last Admin: 07/11/22 20:03 Dose: 40 mg Escitalopram Oxalate (Escitalopram Oxalate 10 Mg Tab) 10 mg PO HS XUAN Stop: 08/10/22 20:59 Last Admin: 07/11/22 20:03 Dose: 10 mg Finasteride (Finasteride 5 Mg Tab) 5 mg PO QAM [facility]UAN Stop: 08/11/22 08:59 Last Admin: 07/12/22 07:58 Dose: 5 mg Furosemide (Furosemide 20 Mg Tab) 20 mg PO Q48H [facility]UAN Stop: 08/10/22 14:53 Last Admin: 07/11/22 16:02 Dose: 20 mg Amiodarone HCl/Dextrose (Nexterone / D5w) 360 mg in 200 mls @ 33.333 mls/hr IV .Q6H XUAN Stop: 08/10/22 11:59 Last Admin: 07/12/22 04:46 Dose: 1 mg/min, 33.3 mls/hr Levetiracetam (Levetiracetam 500 Mg Tab) 500 mg PO BID XUAN Stop: 08/10/22 20:59 Last Admin: 07/12/22 07:59 Dose: 500 mg Melatonin (Melatonin 3 Mg Tab) 3 mg PO HS PRN PRN Reason: Sleep Stop: 08/10/22 23:10 Last Admin: 07/11/22 23:42 Dose: 3 mg Metoprolol Succinate (Metoprolol Succ 50mg Ext Rel Tab) 50 mg PO BID XUAN Stop: 08/10/22 20:59 Last Admin: 07/12/22 07:59 Dose: 50 mg Mexiletine HCl (Mexiletine Hcl 150 Mg Capsule) 150 mg PO TIDM XUAN Stop: 08/10/22 16:59 Last Admin: 07/12/22 07:58 Dose: 150 mg Midodrine (Midodrine Hcl 2.5 Mg Tab) 2.5 mg PO TID [facility] Stop: 08/10/22 20:59 Last Admin: 07/12/22 07:59 Dose: 2.5 mg Polyethylene Glycol (Polyethylene (Miralax) 17 Gm Pack) 17 gm PO DAILY PRN PRN Reason: Constipation Stop: 08/10/22 14:53 Spironolactone (Spironolactone 12.5 Mg Tab) 12.5 mg PO DAILY [facility] Stop: 08/11/22 08:59 Last Admin: 07/12/22 07:59 Dose: 12.5 mg
[2022-07-12] MEDS: MAGNESIUM OXIDE 400 MG TAB PO SCH (08:42)
--- NOTE | 2022-07-12 11:35 | Cardiology Progress Note ---
Date of Service July 12, 2022 Assessment & Plan (1) Ventricular tachycardia: (2) Defibrillator discharge: (3) Chronic HFrEF (heart failure with reduced ejection fraction): Plan: -Ejection fraction 25% on echocardiogram performed earlier this month with noted basal inferior, inferolateral scar. -Telemetry reveals sinus rhythm with AV sequential pacing in the 70s. -Diagnostics: Amiodarone and mexiletine levels obtained in ED on 07/11/22.. -Therapeutics: Continue prior to hospital treatment with metoprolol succinate 50 mg twice daily, furosemide 20 mg every other day, spironolactone 12.5 mg daily, midodrine 5 mg 3 times daily, atorvastatin 40 mg daily, amiodarone 200 mg twice daily. -Reloaded with IV amiodarone for 24 hours, will stop as of now 07/12/22, 11:36 am. -Increase mexiletine from 150 mg 3 times daily to 300 mg two times per day. Has 150 mg capsules at home. -Continue to monitor on telemetry. -Will coordinate with electrophysiology C with regards to moving up his planned ablation appointment. -DVT prophylaxis: Lovenox 30 mg SQ daily. Although he has a history of PAF , he is no longer on coumadin due to history of hemorrhagic pericardial effusion, and fall with intracranial hemorrhage, facial bone fractures. -Eliquis previously discontinued (prior to transition to Coumadin) as it was not affordable. Admission and Anticipated Discharge Date Admission Date: July 11, 2022 Subjective Patient seen in cardiology follow-up. He states that he had a good night overnight last night. Notes no tremoring. Telemetry reveals no additional ventricular tachycardia since his episodes that occurred before he presented to the emergency room on 07/11/2022. No ventricular tachycardia overnight last night or thus far this morning while on amiodarone infusion at a dose of 1 mg/min. Physical Exam Constitutional: WD/WN, vitals as above Respiratory: Auscultation: + diminished lung sounds (Mildly reduced breath sounds at the bases bilaterally) Cardiovascular: RRR, no murmur, no edema Chest (Breasts): Chest: + pacemaker (Left infraclavicular AICD pocket clean dry intact, no erythema) Neurologic: PERRL, EOMI, accommodation nl, no face palsy, no dysarthria Results & Data Vital Signs (Past 12 Hours) Vital Signs Temp Pulse Resp BP Pulse Ox O2 Del Method 07/12/22 08:22 Room Air 07/12/22 07:40 36.4 C L 69 18 117/79 90 Room Air 07/12/22 03:22 36.4 C L 72 18 109/73 93 Room Air
[2022-07-12] MEDS: ENOXAPARIN INJ 30 MG/0.3 ML SYR SQ SCH (13:06)
[2022-07-12] MEDS ORDERED: CALCIUM CARBONATE 500 MG CHEWABLE TAB PO PRN (17:45)
[2022-07-12] MEDS ORDERED: FAMOTIDINE 20 MG in SYRINGE 3 ML IV ONE (18:00)
--- NOTE | 2022-07-12 20:39 | XRay Report ---
KUB CLINICAL HISTORY: Nausea and vomiting. FINDINGS: 2 AP, portable, supine abdominal radiographs are correlated with abdominal CT dated 022. There is a nonobstructed abdominal bowel gas pattern. Mild fecal retention is seen throughout th e colon. No evidence of intraperitoneal free air is identified on these supine images. A 15 mm bladde r calculus projects over the pelvis. The skeletal structures are osteopenic and appear intact. There is moderate lumbosacral spondylosis. The heart is enlarged and pacemaker leads are partially visualiz ed. IMPRESSION: 1. No acute abnormality is identified. 2. A large bladder calculus is again noted. Electronically signed by: John Leonardo M.D. 07/12/2022 8:37 PM
[2022-07-12] MEDS: MELATONIN 3 MG TAB PO PRN (20:59)
[2022-07-12] MEDS: ATORVASTATIN 40 MG TAB PO SCH (21:01)
[2022-07-12] MEDS: ESCITALOPRAM OXALATE 10 MG TAB PO SCH (21:01)
[2022-07-13 06:31] LABS: BUN Creatinine Ratio 15.2 (10-20); Calcium 9.3 mg/dl (8.6-10.3); Creatinine Clr Calc Pharmacy 38.1 ml/min; Est GFR (African American) 54.8 ml/min; Est GFR (Non-African American) 47.3 ml/min; Magnesium 1.9 mg/dl (1.7-2.4); Phosphorus 3.8 mg/dl (2.5-4.9)
[2022-07-13] MEDS: AMIODARONE 200 MG TAB PO SCH ×2 (08:07→20:28)
[2022-07-13] MEDS: levETIRAcetam 500 MG TAB PO SCH ×2 (08:09→20:59)
[2022-07-13] MEDS: ENOXAPARIN INJ 30 MG/0.3 ML SYR SQ SCH (08:09)
[2022-07-13] MEDS: FINASTERIDE 5 MG TAB PO SCH (08:09)
[2022-07-13] MEDS: MAGNESIUM OXIDE 400 MG TAB PO SCH (08:10)
[2022-07-13] MEDS: MEXILETINE HCL 150 MG CAPSULE PO SCH ×2 (08:10→20:58)
[2022-07-13] MEDS: SPIRONOLACTONE 12.5 MG TAB PO SCH (08:10)
[2022-07-13] MEDS: METOPROLOL SUCC 50MG EXT REL TAB PO SCH ×2 (08:10→20:28)
[2022-07-13] MEDS: MIDODRINE HCL 2.5 MG TAB PO SCH ×3 (08:11→20:28)
--- NOTE | 2022-07-13 10:29 | Hospitalist Progress Note ---
Date of Service July 13, 2022 Assessment & Plan (1) Ventricular tachycardia: Plan: -Further management per Cardiology: on amiodarone 200mg BID, mexiletine 150mg TID at home was loaded w/ IV amiodarone on admission - IV amio now stopped mexiletine increased to 300 BID - discussed w/ cardiology - plan to increase amiodarone to 400 mg twice a day Continue continuous telemetry monitoring at least another 24 hours. Patient scheduled for possible [place] [facility] [place] [facility] - monitor electrolytes, keep K>4 and Mg >2 (2) Defibrillator discharge: (3) Nonobstructive cardiomyopathy: Plan: (4) Paroxysmal atrial fibrillation: Plan: -Previously on coumadin but not on it currently for history of Subdural hematoma and hemopericardium (5) BPH (benign prostatic hyperplasia): Plan: -finasteride 5mg daily (6) Chronic HFrEF (heart failure with reduced ejection fraction): Plan: -euvolemic currently -continue lasix 20mg every other day, toprol 50mg BID, spironolactone 12.5mg daily -not on ACEI/ARB presumably for hypotension since he is also on midodrine 2.5mg TID (7) Nonischemic cardiomyopathy: Plan Seizure disorder -keppra 500mg BID DVT ppx - SQ heparin Dispo: PCU Admission and Anticipated Discharge Date Admission Date: July 11, 2022 Subjective Pt seen in follow up of Vtach Currently laying in bed, in no acute distress IV amiodarone stopped yesterday Patient feeling overall better, no chest pain or shortness of breath, no palpitation Denies any fevers chills Reported some abdominal discomfort and nausea yesterday, now reports feeling ok Cardiology following closely Review of Systems Review of Systems: All systems reviewed & are unremarkable except as noted in Subjective Physical Exam Physical Exam: Physical Exam: elderly frail M i n NAD ENMT: normocephalic, at raumatic, mucous m embrane moist Respiratory: Breathing comfort ably on room air, no wheezing/rhonch i/rales Cardiovascular:I regular rate and rhythm, no murmurs /rubs Gastrointestinal ( Abdomen): soft, non tender, non distended Musculoskeletal: No edema, moves e xtremities Skin: warm, dry Neurologic: awake, alert, spe ech fluent, sponta neously moving ext remities Results & Data Results & Data Vital Signs (Past 12 Hours) Vital Signs Temp Pulse Resp BP Pulse Ox O2 Del Method 07/13/22 08:33 36.7 C 70 20 110/75 96 Room Air 07/13/22 04:22 36.5 C 69 18 113/73 91 Room Air 07/12/22 23:19 36.4 C L 92 H 18 101/71 92 Room Air Laboratory Results 07/13/22 07/11/22 07/11/22 Range/Units 05:22 11:53 11:53 Sodium 136 (136-145) mmol/L Potassium 4.0 (3.5-5.1) mmol/L Chloride 102 (98-107) mmol/L Carbon Dioxide 25 (21-32) mmol/L Anion Gap 9 (3-11) BUN 21 (6-23) mg/dl Creatinine 1.38 (0.6-1.4) mg/dl Est Cr Clr Drug Dosing 38.1 ml/min Est GFR ( Amer) 54.8 ml/min Est GFR (Non-Af Amer) 47.3 ml/min BUN/Creatinine Ratio 15.2 (10-20) Glucose 105 H (70-99(Fasting)) mg/dl Calcium 9.3 (8.6-10.3) mg/dl Phosphorus 3.8 (2.5-4.9) mg/dl Magnesium 1.9 (1.7-2.4) mg/dl Amiodarone Pending Desmethylamiodarone Pending Mexiletine Cancelled Pending Medications Administered Current Inpatient Medications Acetaminophen (Acetaminophen 325 Mg Tab) 650 mg PO Q4H PRN PRN Reason: Pain or Fever Stop: 08/10/22 14:53 Amiodarone HCl (Amiodarone 200 Mg Tab) 200 mg PO BID XUAN Stop: 08/10/22 20:59 Last Admin: 07/13/22 08:07 Dose: 200 mg Atorvastatin Calcium (Atorvastatin 40 Mg Tab) 40 mg PO HS XUAN Stop: 08/10/22 20:59 Last Admin: 07/12/22 21:01 Dose: 40 mg Calcium Carbonate (Calcium Carbonate 500 Mg Chewable Tab) 500 mg PO Q4H PRN PRN Reason: Indigestion Stop: 08/11/22 17:44 Last Admin: 07/12/22 17:53 Dose: 500 mg Enoxaparin Sodium (Enoxaparin Inj 30 Mg/0.3 Ml Syr) 30 mg SQ QAM [facility] Stop: 08/11/22 11:44 Last Admin: 07/13/22 08:09 Dose: 30 mg Escitalopram Oxalate (Escitalopram Oxalate 10 Mg Tab) 10 mg PO HS XUAN Stop: 08/10/22 20:59 Last Admin: 07/12/22 21:01 Dose: 10 mg Finasteride (Finasteride 5 Mg Tab) 5 mg PO QAM [facility]AN Stop: 08/11/22 08:59 Last Admin: 07/13/22 08:09 Dose: 5 mg Furosemide (Furosemide 20 Mg Tab) 20 mg PO Q48H [facility] Stop: 08/10/22 14:53 Last Admin: 07/11/22 16:02 Dose: 20 mg Levetiracetam (Levetiracetam 500 Mg Tab) 500 mg PO BID [facility] Stop: 08/10/22 20:59 Last Admin: 07/13/22 08:09 Dose: 500 mg Magnesium Oxide (Magnesium Oxide 400 Mg Tab) 400 mg PO QAM [facility] Stop: 08/11/22 08:59 Last Admin: 07/13/22 08:10 Dose: 400 mg Melatonin (Melatonin 3 Mg Tab) 3 mg PO HS PRN PRN Reason: Sleep Stop: 08/10/22 23:10 Last Admin: 07/12/22 20:59 Dose: 3 mg Metoprolol Succinate (Metoprolol Succ 50mg Ext Rel Tab) 50 mg PO BID [facility]AN Stop: 08/10/22 20:59 Last Admin: 07/13/22 08:10 Dose: 50 mg Mexiletine HCl (Mexiletine Hcl 150 Mg Capsule) 300 mg PO BID [facility] Stop: 08/11/22 20:59 Last Admin: 07/13/22 08:10 Dose: 300 mg Midodrine (Midodrine Hcl 2.5 Mg Tab) 2.5 mg PO TID [facility]AN Stop: 08/10/22 20:59 Last Admin: 07/13/22 08:11 Dose: 2.5 mg Polyethylene Glycol (Polyethylene (Miralax) 17 Gm Pack) 17 gm PO DAILY PRN PRN Reason: Constipation Stop: 08/10/22 14:53 Spironolactone (Spironolactone 12.5 Mg Tab) 12.5 mg PO DAILY [facility] Stop: 08/11/22 08:59 Last Admin: 07/13/22 08:10 Dose: 12.5 mg
--- NOTE | 2022-07-13 10:38 | Cardiology Progress Note ---
Date of Service July 13, 2022 Assessment & Plan (1) Ventricular tachycardia: (2) Defibrillator discharge: (3) Chronic HFrEF (heart failure with reduced ejection fraction): Plan Admission with recurrent symptomatic sustained ventricular tachycardia Nonischemic cardiomyopathy with NYHA Class III, wide QRS, EF 25%, basal inferior and inferolateral scar Status post July 25, 2021 biventricular pacemaker defibrillator implantation July 22, 2021 diagnostic cardiac catheterization with mild nonobstructive CAD (20% ostial left main, 25% mid LAD, ectatic circumflex with 20% proximal stenosis, 30% distal stenosis, 30% mid RCA stenosis) Paroxysmal atrial fibrillation, discontinuation of anticoagulation following presentation in December 2021 with moderate to large pericardial effusion with CT findings suggesting hemopericardium, also with presentation in February 2022 following seizure, imaging revealing bilateral mixed attenuation subdural hematomas as well as a fracture of the left zygomatic arch Hypertension Dyslipidemia History of CVA, 2017 RECOMMENDATIONS/PLAN: Patient reloaded with IV amiodarone this admission, IV discontinued on July 12, 2022 Increase oral amiodarone to 400 mg twice a day Mexiletine increased/changed to 300 mg twice per day this admission. Discontinue Escitalopram (Lexapro) which was prescribed in 11/2021 Continue metoprolol as prescribed. Continue continuous telemetry monitoring at least another 24 hours. Patient scheduled for possible VT ablation with Dr. Escalona at [facility] [place] on 08/11/2022. Admission and Anticipated Discharge Date Admission Date: July 11, 2022 Supervising Physician Co-Signing Physician Notes Patient seen and examined at the bedside. No recurrent ventricular tachycardia over the past 24 hours. Denies chest pain or palpitations. No lightheadedness, or dizziness. Denies orthopnea, PND, or edema. PE: VSS. Gen: NAD, AAO x3. Heart: Regular rhythm, normal S1S2. Lungs: Clear B/L, no rales, rhonchi, wheeze. Extremities: No edema A/P: Agree with above PA-C history, physical exam, assessment and plan. Titrate amiodarone to 200 mg twice daily. Discontinue Lexapro and continue meclizine as ordered. Possible discharge in 24 hours. Ventricular tachycardia ablation scheduled with Dr. Escalona at [facility] [place] 08/11/2022. Subjective Patient seen and examined. Chart, medications, and telemetry reviewed. Feels better today. No current nausea. No emesis. No hot flashes. No palpitations. No chest pain. No shortness of breath. No peripheral edema. Telemetry: AV paced. No ventricular tachycardia overnight. Review of Systems Review of Systems: Complete review of systems is otherwise as stated above, negative, noncontributory. Physical Exam Physical Exam: General: A&Ox3. NAD. HENT: Normocephalic. Atraumatic. Eyes: PER. Conjunctiva pink, sclera clear. Neck: No carotid bruits. No JVD. Heart: Regular at 76 bpm. Soft systolic murmur at the LLSB and apex. PMI is displaced. Lungs: Diminished. Clear to auscultation. No wheeze. Abdomen: +BS. Soft. Nontender. No masses or organomegaly. Extremities: No clubbing, cyanosis, or edema. Limited neurological examination is without focal deficits. Pulses: Posterior tibial=2/4. Results & Data Vital Signs (Past 12 Hours) Vital Signs Temp Pulse Resp BP Pulse Ox O2 Del Method 07/13/22 08:33 36.7 C 70 20 110/75 96 Room Air 07/13/22 04:22 36.5 C 69 18 113/73 91 Room Air 07/12/22 23:19 36.4 C L 92 H 18 101/71 92 Room Air Laboratory Results Comprehensive Metabolic Panel 07/13/22 Range/Units 05:22 Sodium 136 (136-145) mmol/L Potassium 4.0 (3.5-5.1) mmol/L Chloride 102 (98-107) mmol/L Carbon Dioxide 25 (21-32) mmol/L BUN 21 (6-23) mg/dl Creatinine 1.38 (0.6-1.4) mg/dl Glucose 105 H (70-99(Fasting)) mg/dl Calcium 9.3 (8.6-10.3) mg/dl Intake and Output 07/12/22 07/13/22 07/13/22 22:59 06:59 14:59 Intake Total 125 / 466.09 0 / 0 Balance 125 / 466.09 0 / 0 Intake: IV 0 / 0 Amiodarone / D5w 360 mg In 200 0 / 0 ml @ 1 MG/MIN 33.333 mls/hr IV .Q6H [facility] Rx#:[id number] Oral 125 / 245 Other: # Unmeasured Voids 2 3 Weight 65.3 kg Weight Measurement Method Built in [facility] Diagnostic Findings Amiodarone and mexiletine levels obtained in ED on 07/11/22, pending...
[2022-07-13] MEDS ORDERED: Nursing to Pharmacy Communication SCH (15:00)
[2022-07-13] MEDS: FUROSEMIDE 20 MG TAB PO SCH (15:22)
[2022-07-13 20:13] LABS: Appearance Urine Cloudy (Clear); Bacteria Urine Automated Negative (Negative); Bilirubin Urine Negative (Negative); Blood Urine 3+ (Negative); Color Urine Dark Yellow; Glucose Urine UA Negative (Negative); Ketones Urine Trace (Negative); Leukocyte Esterase Urine Trace (Negative); Nitrite Urine Negative (Negative); Protein Urine 1+ (Negative); RBC Urine Automated >30 /hpf (0-4); Specific Gravity Urine 1.018 (1.000-1.030); Urobilinogen Urine Negative (Negative)
[2022-07-13] MEDS: ATORVASTATIN 40 MG TAB PO SCH (21:00)
[2022-07-13 21:04] LABS: Calcium Oxalate Crystals Urine Present (None Prsent)
[2022-07-14 06:57] LABS: BUN Creatinine Ratio 16.6 (10-20); Calcium 9.1 mg/dl (8.6-10.3); Creatinine Clr Calc Pharmacy 34.7 ml/min; Est GFR (African American) 49.1 ml/min; Est GFR (Non-African American) 42.4 ml/min; Magnesium 1.9 mg/dl (1.7-2.4); Phosphorus 3.7 mg/dl (2.5-4.9); Potassium 4.3 mmol/L (3.5-5.1)
[2022-07-14] MEDS: FINASTERIDE 5 MG TAB PO SCH (08:39)
[2022-07-14] MEDS: AMIODARONE 200 MG TAB PO SCH (08:39)
[2022-07-14] MEDS: ENOXAPARIN INJ 30 MG/0.3 ML SYR SQ SCH (08:39)
[2022-07-14] MEDS: levETIRAcetam 500 MG TAB PO SCH (08:40)
[2022-07-14] MEDS: MAGNESIUM OXIDE 400 MG TAB PO SCH (08:40)
[2022-07-14] MEDS: MEXILETINE HCL 150 MG CAPSULE PO SCH (08:40)
[2022-07-14] MEDS: METOPROLOL SUCC 50MG EXT REL TAB PO SCH (08:40)
[2022-07-14] MEDS: SPIRONOLACTONE 12.5 MG TAB PO SCH (08:41)
[2022-07-14] MEDS: MIDODRINE HCL 2.5 MG TAB PO SCH ×2 (08:41→13:56)
[2022-07-14] MEDS ORDERED: SODIUM CHLORIDE 0.9% 1000ML 500 ML IV ONE (09:02)
--- NOTE | 2022-07-14 09:02 | Hospitalist Progress Note ---
Date of Service July 14, 2022 Assessment & Plan (1) Ventricular tachycardia: Plan: -Further management per Cardiology: on amiodarone 200mg BID, mexiletine 150mg TID at home was loaded w/ IV amiodarone on admission - IV amio now stopped mexiletine increased to 300 BID - discussed w/ cardiology -increased amiodarone to 400 mg twice a day Patient scheduled for possible VT [place] with [place] [facility] [place] - monitor electrolytes, keep K>4 and Mg >2 Discussed w/ cardiology and daughter at the bedside - plan to DC home today and follow up as outpt - plan for VT ablation, as above. (2) Defibrillator discharge: (3) Nonobstructive cardiomyopathy: Plan: (4) Paroxysmal atrial fibrillation: Plan: -Previously on coumadin but not on it currently for history of Subdural hematoma and hemopericardium (5) BPH (benign prostatic hyperplasia): Plan: -finasteride 5mg daily (6) Chronic HFrEF (heart failure with reduced ejection fraction): Plan: -euvolemic currently -continue lasix 20mg every other day, toprol 50mg BID, spironolactone 12.5mg daily -not on ACEI/ARB presumably for hypotension since he is also on midodrine (7) Nonischemic cardiomyopathy: Plan Seizure disorder -keppra 500mg BID DVT ppx - SQ heparin Dispo: Plan to DC home today Admission and Anticipated Discharge Date Admission Date: July 11, 2022 Subjective Pt seen in follow up of Vtach Currently laying in bed, in no acute distress Patient feeling overall better, no chest pain or shortness of breath, no palpitation Denies any fevers chills Reported some abdominal discomfort and nausea, now improved Cardiology following closely - plan to DC home today Daughter at the bedside and updated. Review of Systems Review of Systems: All systems reviewed & are unremarkable except as noted in Subjective Physical Exam Physical Exam: Physical Exam: elderly frail M i n NAD ENMT: normocephalic, at raumatic, mucous m embrane moist Respiratory: Breathing comfort ably on room air, no wheezing/rhonch i/rales Cardiovascular:I regular rate and rhythm, no murmurs /rubs Gastrointestinal ( Abdomen): soft, non tender, non distended Musculoskeletal: No edema, moves e xtremities Skin: warm, dry Neurologic: awake, alert, spe ech fluent, sponta neously moving ext remities Results & Data Results & Data Vital Signs (Past 12 Hours) Vital Signs Temp Pulse Pulse Resp BP Pulse Ox O2 Del Method 07/14/22 07:02 36.4 C L 77 18 104/70 93 Room Air 07/14/22 03:38 36.5 C 71 18 111/78 96 Room Air 07/13/22 23:14 36.5 C 86 18 115/86 97 Room Air 07/13/22 22:02 71 Laboratory Results 07/14/22 07/13/22 07/13/22 Range/Units 06:06 20:46 19:49 Sodium 134 L (136-145) mmol/L Potassium 4.3 (3.5-5.1) mmol/L Chloride 100 (98-107) mmol/L Carbon Dioxide 25 (21-32) mmol/L Anion Gap 9 (3-11) BUN 25 H (6-23) mg/dl Creatinine 1.51 H (0.6-1.4) mg/dl Est Cr Clr Drug Dosing 34.7 ml/min Est GFR ( Amer) 49.1 ml/min Est GFR (Non-Af Amer) 42.4 ml/min BUN/Creatinine Ratio 16.6 (10-20) Glucose 99 (70-99(Fasting)) mg/dl POC Glucose 143 H (70-99) mg/dl Calcium 9.1 (8.6-10.3) mg/dl Phosphorus 3.7 (2.5-4.9) mg/dl Magnesium 1.9 (1.7-2.4) mg/dl Urine Color Dark Yellow Urine Appearance Cloudy A (Clear) Urine pH 5.0 (4.5-7.5) Ur Specific [place] 1.018 (1.000-1.030) Urine Protein 1+ H (Negative) Urine Glucose (UA) Negative (Negative) Urine Ketones Trace H (Negative) Urine Blood 3+ H (Negative) Urine Nitrite Negative (Negative) Urine Bilirubin Negative (Negative) Urine Urobilinogen Negative (Negative) Ur Leukocyte Esterase Trace H (Negative) Urine WBC (Auto) 1-5 (0-5) /hpf Urine RBC (Auto) >30 H (0-4) /hpf U Hyaline Cast (Auto) 1-5 (0-5) /lpf U Epithel Cells (Auto) 5-10 H (0-5) /lpf Urine Bacteria (Auto) Negative (Negative) Urine Crystals Not Reportable Calcium Oxalate Crystal Present A (None Prsent) Amiodarone Desmethylamiodarone Mexiletine 07/11/22 07/11/22 Range/Units 11:53 11:53 Sodium (136-145) mmol/L Potassium (3.5-5.1) mmol/L Chloride (98-107) mmol/L Carbon Dioxide (21-32) mmol/L Anion Gap (3-11) BUN (6-23) mg/dl Creatinine (0.6-1.4) mg/dl Est Cr Clr Drug Dosing ml/min Est GFR ( Amer) ml/min Est GFR (Non-Af Amer) ml/min BUN/Creatinine Ratio (10-20) Glucose (70-99(Fasting)) mg/dl POC Glucose (70-99) mg/dl Calcium (8.6-10.3) mg/dl Phosphorus (2.5-4.9) mg/dl Magnesium (1.7-2.4) mg/dl Urine Color Urine Appearance (Clear) Urine pH (4.5-7.5) Ur Specific [place] (1.000-1.030) Urine Protein (Negative) Urine Glucose (UA) (Negative) Urine Ketones (Negative) Urine Blood (Negative) Urine Nitrite (Negative) Urine Bilirubin (Negative) Urine Urobilinogen (Negative) Ur Leukocyte Esterase (Negative) Urine WBC (Auto) (0-5) /hpf Urine RBC (Auto) (0-4) /hpf U Hyaline Cast (Auto) (0-5) /lpf U Epithel Cells (Auto) (0-5) /lpf Urine Bacteria (Auto) (Negative) Urine Crystals Calcium Oxalate Crystal (None Prsent) Amiodarone Pending Desmethylamiodarone Pending Mexiletine Cancelled Pending Medications Administered Current Inpatient Medications Acetaminophen (Acetaminophen 325 Mg Tab) 650 mg PO Q4H PRN PRN Reason: Pain or Fever Stop: 08/10/22 14:53 Amiodarone HCl (Amiodarone 200 Mg Tab) 400 mg PO BID XUAN Stop: 08/12/22 20:59 Last Admin: 07/14/22 08:39 Dose: 400 mg Atorvastatin Calcium (Atorvastatin 40 Mg Tab) 40 mg PO HS XUAN Stop: 08/10/22 20:59 Last Admin: 07/13/22 21:00 Dose: 40 mg Calcium Carbonate (Calcium Carbonate 500 Mg Chewable Tab) 500 mg PO Q4H PRN PRN Reason: Indigestion Stop: 08/11/22 17:44 Last Admin: 07/12/22 17:53 Dose: 500 mg Enoxaparin Sodium (Enoxaparin Inj 30 Mg/0.3 Ml Syr) 30 mg SQ QAM [facility] Stop: 08/11/22 11:44 Last Admin: 07/14/22 08:39 Dose: 30 mg Finasteride (Finasteride 5 Mg Tab) 5 mg PO QAM [facility] Stop: 08/11/22 08:59 Last Admin: 07/14/22 08:39 Dose: 5 mg Furosemide (Furosemide 20 Mg Tab) 20 mg PO Q48H XUAN Stop: 08/10/22 14:53 Last Admin: 07/13/22 15:22 Dose: 20 mg Levetiracetam (Levetiracetam 500 Mg Tab) 500 mg PO BID XUAN Stop: 08/10/22 20:59 Last Admin: 07/14/22 08:40 Dose: 500 mg Magnesium Oxide (Magnesium Oxide 400 Mg Tab) 400 mg PO QAM [facility] Stop: 08/11/22 08:59 Last Admin: 07/14/22 08:40 Dose: 400 mg Melatonin (Melatonin 3 Mg Tab) 3 mg PO HS PRN PRN Reason: Sleep Stop: 08/10/22 23:10 Last Admin: 07/12/22 20:59 Dose: 3 mg Metoprolol Succinate (Metoprolol Succ 50mg Ext Rel Tab) 50 mg PO BID XUAN Stop: 08/10/22 20:59 Last Admin: 07/14/22 08:40 Dose: 50 mg Mexiletine HCl (Mexiletine Hcl 150 Mg Capsule) 300 mg PO BID [facility] Stop: 08/11/22 20:59 Last Admin: 07/14/22 08:40 Dose: 300 mg Midodrine (Midodrine Hcl 2.5 Mg Tab) 2.5 mg PO TID XUAN Stop: 08/10/22 20:59 Last Admin: 07/14/22 08:41 Dose: 2.5 mg Polyethylene Glycol (Polyethylene (Miralax) 17 Gm Pack) 17 gm PO DAILY PRN PRN Reason: Constipation Stop: 08/10/22 14:53 Spironolactone (Spironolactone 12.5 Mg Tab) 12.5 mg PO DAILY [facility] Stop: 08/11/22 08:59 Last Admin: 07/14/22 08:41 Dose: 12.5 mg
--- NOTE | 2022-07-14 10:58 | Cardiology Progress Note ---
Date of Service July 14, 2022 Assessment & Plan (1) Ventricular tachycardia: (2) Defibrillator discharge: (3) Chronic HFrEF (heart failure with reduced ejection fraction): Plan Admission with recurrent symptomatic sustained ventricular tachycardia Nonischemic cardiomyopathy with NYHA Class III, wide QRS, EF 25%, basal inferior and inferolateral scar Status post July 25, 2021 biventricular pacemaker defibrillator implantation July 22, 2021 diagnostic cardiac catheterization with mild nonobstructive CAD (20% ostial left main, 25% mid LAD, ectatic circumflex with 20% proximal stenosis, 30% distal stenosis, 30% mid RCA stenosis) Paroxysmal atrial fibrillation, discontinuation of anticoagulation following presentation in December 2021 with moderate to large pericardial effusion with CT findings suggesting hemopericardium, also with presentation in February 2022 following seizure, imaging revealing bilateral mixed attenuation subdural hematomas as well as a fracture of the left zygomatic arch Hypertension Dyslipidemia History of CVA, 2017 RECOMMENDATIONS/PLAN: Patient reloaded with IV amiodarone this admission, IV discontinued on July 12, 2022 Continue amiodarone, dose increased to 400 mg twice a day this admission Continue Mexiletine, dose increased to 300 mg twice per day this admission. Escitalopram (Lexapro) discontinued this admission. Continue metoprolol as prescribed. Patient scheduled for possible [place] [facility] [place] Medications discussed with daughter via telephone from patient's room. Daughters main concern is the dose of furosemide. [facility] [employer] NURSE dose of furosemide was 20 mg one day alternating with 40 mg the next day. Furosemide has been administered at 20 mg every other day while hospitalized. Will continue furosemide at 20 mg every other day for now, likely requiring gradual titration as an outpatient as discussed. Admission and Anticipated Discharge Date Admission Date: July 11, 2022 Supervising Physician Co-Signing Physician Notes Patient seen and examined at the bedside. No recurrent ventricular tachycardia over the past 48 hours. Denies chest pain or palpitations. No lightheadedness, or dizziness. Denies orthopnea, PND, or edema. Amiodarone titrated to 400 mg twice daily, meclizine titrated to 300 mg twice daily. PE: VSS. Gen: NAD, AAO x3. Heart: Regular rhythm, normal S1S2. Lungs: Clear B/L, no rales, rhonchi, wheeze. Extremities: No edema A/P: Agree with above PA-C history, physical exam, assessment and plan. Continue amiodarone and meclizine as ordered. Ventricular tachycardia ablation [place] Escalona [place] [facility] [place]. Diuretic dosing as noted above. No further inpatient cardiac testing or intervention recommended. Subjective Patient seen and examined. Chart, medications, and telemetry reviewed. Feels better today. Mild nausea this AM, without emesis, better overall. No hot flashes. No tachypalpitations. No chest pain. No shortness of breath. No peripheral edema.Telemetry: AV paced. No ventricular tachycardia over the last 48 hours. Review of Systems Review of Systems: Complete review of systems is otherwise as stated above, negative, noncontributory. Physical Exam Physical Exam: General: A&Ox3. NAD. HENT: Normocephalic. Atraumatic. Eyes: PER. Conjunctiva pink, sclera clear. Neck: No carotid bruits. No JVD. Heart: Regular at 70 bpm. Soft systolic murmur at the LLSB and apex. PMI is displaced. Lungs: Diminished. Clear to auscultation. No wheeze. Abdomen: +BS. Soft. Nontender. No masses or organomegaly. Extremities: No clubbing, cyanosis, or edema. Limited neurological examination is without focal deficits. Pulses: Posterior tibial=2/4. Results & Data Vital Signs (Past 12 Hours) Vital Signs Temp Pulse Resp BP Pulse Ox O2 Del Method 07/14/22 07:02 36.4 C L 77 18 104/70 93 Room Air 07/14/22 03:38 36.5 C 71 18 111/78 96 Room Air 07/13/22 23:14 36.5 C 86 18 115/86 97 Room Air Laboratory Results Comprehensive Metabolic Panel 07/14/22 Range/Units 06:06 Sodium 134 L (136-145) mmol/L Potassium 4.3 (3.5-5.1) mmol/L Chloride 100 (98-107) mmol/L Carbon Dioxide 25 (21-32) mmol/L BUN 25 H (6-23) mg/dl Creatinine 1.51 H (0.6-1.4) mg/dl Glucose 99 (70-99(Fasting)) mg/dl Calcium 9.1 (8.6-10.3) mg/dl Intake and Output 07/13/22 07/14/22 07/14/22 22:59 06:59 14:59 Intake Total 540 / 540 Output Total 60 / 60 Balance 480 / 480 Intake: Oral 540 / 540 Output: Urine 60 / 60 Other: # Unmeasured Voids 1 1 Weight 65.1 kg Weight Measurement Method Built in [facility]
--- NOTE | 2022-07-14 13:41 | Discharge Summary ---
Date of Service July 14, 2022 Admission HPI Per Admitting Provider Mr Kilo Musa is a 82 year old man with a complex history which includes Atrial fibrillation previously on coumadin, Subdural hematoma, seizure disorder, non ischemic cardiomyopathy with EF 20-30% s/p AICD, non obstructive CAD, HTN, stroke, and recurrent V tach presents to [facility] today after awaking today and experiencing facial flushing (usual presentation of his VT) and subsequent 2 ICD firings around 820-840AM this morning. He was recently admitted here from 07/01/22 to 07/09/22 for recurrent VT during which time his ICD firing threshold was reduced and he was started on mexilitine in addition to amiodarone which he was on previously with plan for outpatient follow up with [facility] [place] for [place] ablation which is scheduled for 08/11/22. In the past 2 weeks, his family had contacted Cardiology due to patient feeling weak and shaky and his furosemide dose was reduced and his mexilitine dose was also reduced but he felt better so he continued his prior mexilitine dose. He was doing reasonable well until this morning when he experienced the facial flushing and ICD firings. His ICD device was interrogated earlier in ER and showed multiple runs of VT starting on 07/09 and this morning had sustained VT episodes some of which were successfully paced out but ultimately he received 2 ICD shocks. He was seen in ER by Cardiology and I discussed case with Dr Sim whom he is well known to. We will admit here for medical management of his VT with plan to contact EP to see whether his ablation can be moved up. Patient currently feels well and denies chest pain, shortness of breath of discomfort. Admission Exam Per Admitting Provider Physical Exam: Appears well, no acute distress, appears stated age ENMT: normocephalic, atraumatic, mucous membrane moist Respiratory: Breathing comfortably on room air, no wheezing/rhonchi/rales Cardiovascular: regular rate and rhythm, no murmurs/rubs Gastrointestinal (Abdomen): soft, non tender, non distended Musculoskeletal: No edema, no cyanosis or clubbing Skin: no rash, no redness, no ulcer noted on exposed skin Neurologic: awake, alert, spontaneously moving extremities Psychiatric: affect normal, speech linear, non pressured Principal Diagnosis Vtach Discharge Exam Physical Exam: elderly frail M in NAD ENMT: normocephalic, atraumatic, mucous membrane moist Respiratory: Breathing comfortably on room air, no wheezing/rhonchi/rales Cardiovascular: regular rate and rhythm, no murmurs/rubs Gastrointestinal (Abdomen): soft, non tender, non distended Musculoskeletal: No edema, moves extremities Skin: warm, dry Neurologic: awake, alert, speech fluent, spontaneously moving extremities Discharge Data Allergies Allergy/AdvReac Type Severity Reaction Status Date / Time amoxicillin Allergy Intermediate Hives Verified 05/12/22 14:22 sulfamethoxazole Allergy Mild Unknown Verified 05/12/22 14:22 [From Bactrim] trimethoprim [From Bactrim] Allergy Mild Unknown Verified 05/12/22 14:22 Consultations 07/11/22 18:31 Consult Cardiology Routine Hospital Course (1) Ventricular tachycardia: -Further management per Cardiology: on amiodarone 200mg BID, mexiletine 150mg TID at home was loaded w/ IV amiodarone on admission - IV amio now stopped mexiletine increased to 300 BID - discussed w/ cardiology -increased amiodarone to 400 mg twice a day Patient scheduled for possible VT ablation with Dr. Escalona at [facility] [place] on 08/11/2022. - monitor electrolytes, keep K>4 and Mg >2 Discussed w/ cardiology and daughter at the bedside - plan to DC home today and follow up as outpt - plan for VT ablation, as above. (2) Defibrillator discharge: (3) Nonobstructive cardiomyopathy: (4) Paroxysmal atrial fibrillation: -Previously on coumadin but not on it currently for history of Subdural hematoma and hemopericardium (5) BPH (benign prostatic hyperplasia): -finasteride 5mg daily (6) Chronic HFrEF (heart failure with reduced ejection fraction): -euvolemic currently -continue lasix 20mg every other day, toprol 50mg BID, spironolactone 12.5mg daily -not on ACEI/ARB presumably for hypotension since he is also on midodrine (7) Nonischemic cardiomyopathy: Plan Seizure disorder -keppra 500mg BID Total Time Total Time Spent Total Time Spent (In Minutes): 40 Discharge Plan Discharge Items Patient Disposition: Home - Self-Care Reason For Visit: V TACH Discharge Diagnosis: Vtach Activity: Per Instructions section Non-emergency contact: Primary Care Provider and Information Security Consultant Call non-emergency contact if: you have any medication questions and your symptoms worsen Follow-up/Referrals: Cee Pope CRNP [Primary Care Provider] - (Date & Time 07/17/2022 8:40 AM Provider VIVIAN Hernandez Department [facility] ) Diet: Heart Healthy Fluids: 1800ml (7 cups) Addtl Attending Provider Instructions: Follow-up with your primary care provider, and knockdown man. Your ablation is currently scheduled in July. You will be contacted if you are able to have this procedure done earlier. Your medications have been changed during this hospital stay. Amiodarone was increased to 400 mg twice a day. Mexiletine was changed to 300 mg twice a day. Also please take your furosemide 20 mg every other day. Stop taking escitalopram/Lexapro. Pending Studies at Discharge: No Stand-Alone Forms: My [facility] [place] Closures, Smoking Cessation Medications and DC Order Prescriptions: New amiodarone 200 mg Tablet 400 mg PO BID Qty: 60 0RF mexiletine 150 mg Capsule 300 mg PO BID Qty: 90 0RF Continued finasteride [Proscar] 5 mg tablet 5 mg PO QAM Qty: 90 3RF atorvastatin [Lipitor] 40 mg tablet 40 mg PO HS Qty: 30 0RF levetiracetam 500 mg tablet 500 mg PO BID midodrine 2.5 mg tablet 5 mg PO TID Qty: 1 0RF metoprolol succinate 50 mg tablet extended release 24 hr 50 mg PO BID Qty: 60 0RF spironolactone 25 mg Tablet 12.5 mg PO DAILY Qty: 15 0RF furosemide 20 mg tablet 20 mg PO Q OTHER DAY Discontinued mexiletine 150 mg Capsule 150 mg PO TIDM Qty: 60 0RF amiodarone 200 mg Tablet 200 mg PO BID Qty: 60 0RF escitalopram oxalate 5 mg tablet 10 mg PO HS furosemide 20 mg Tablet 40 mg PO Q OTHER DAY Discharge Orders: Discharge Order (Routine); Ordered 07/14/22 Ordered By: Rambo Posadas Admission Data Admit Date/Time: 07/11/22 14:04 Attending Provider: Rambo Posadas Admit Provider: Lexx Sullivan Primary Care Provider: Cee Pope Other Providers: Mack Sim ; Devyn Sullivan-Thi
== END 2022-07-14 14:31 | disposition home or self-care (01) | DRG 309 ==
LOC: ED 09:53 → SUATTDRO 14:04 → 4W 14:04

== ENCOUNTER 2022-07-26 15:04 | Inpatient (IN) ==
[2022-07-26 16:09] LABS: Basophils # (auto) 0.02 K/uL (0-0.2); Basophils % (auto) 0.2 %; Eosinophils # (auto) 0.01 K/uL (0-0.50); Eosinophils % (auto) 0.1 %; Hematocrit (blood only) 42.5 % (42.0-52.0); Hemoglobin 14.5 g/dl (14.0-18.0); Immature Granulocytes # (auto) 0.13 K/uL (0.01-0.20); Immature Granulocytes % (auto) 1.3 %; Lymphocytes # (auto) 0.83 K/uL (1.2-3.4); Lymphocytes % (auto) 8.5 %; Mean Corpuscular Hemoglobin 33.4 pg (25.0-34.0); Mean Corpuscular Hgb Conc 34.1 g/dL (32.0-36.0); Mean Corpuscular Volume 97.9 fL (80.0-100.0); Mean Platelet Volume 9.5 fL (9.4-12.4); Monocytes % (auto) 8.2 %; Neutrophils # (auto) 7.99 K/uL (1.40-6.50); Neutrophils % (auto) 81.7 %; Platelet Count 253 K/uL (130-400); RDW Coefficient of Variation 15.6 % (11.5-14.5); RDW Standard Deviation 56.2 fL (36.4-46.3); Red Blood Count 4.34 M/uL (4.70-6.10); White Blood Count 9.78 K/ul (4.8-10.8)
[2022-07-26 16:15] LABS: Albumin Globulin Ratio 1.1 (0.9-2); Albumin Level 3.2 gm/dl (3.4-5.0); BUN Creatinine Ratio 19.6 (10-20); Bilirubin,Total 1.8 mg/dl (0.2-1.0); Calcium 8.5 mg/dl (8.6-10.3); Creatinine Clr Calc Pharmacy 51.5 ml/min; Est GFR (African American) 74.5 ml/min; Est GFR (Non-African American) 64.3 ml/min; Globulin 2.8 gm/dl (2.5-4.0); Magnesium 1.8 mg/dl (1.7-2.4); Potassium 4.1 mmol/L (3.5-5.1)
--- NOTE | 2022-07-26 16:18 | Emergency Department Note ---
Impression & Plan Hypoxia, Elevated troponin, CHF (congestive heart failure), SOB (shortness of breath), Hypotension ED Provider Note NAME: SUSAN SHEEHAN AGE: 82 SEX: M : 1940 ARRIVES VIA: Ambulance INFORMANT: [Patient][family] ED PROVIDER(S): [John Smith MD] CHIEF COMPLAINT: Shortness of breath HISTORY OF PRESENT ILLNESS: The patient is an 82-year-old male with a history of ventricular tachycardia, CHF. Patient was discharged from [facility] 4 days ago after having an ablation for his ventricular tachycardia. The ablation was done the day before discharge. The patient left the hospital weighing about 152 pounds, 10 pounds over his normal weight. He was discharged on 20 mg of daily Lasix +12.5 mg of daily spironolactone. The patient had some pedal edema after d ischarge and the family increase his Lasix to 40 mg on Wednesday and Wednesday, yesterday the day before. Today, they gave him 30 mg of Lasix. His pedal edema is better however, he was noted to be short of breath with exertion today and felt his heart racing. His O2 saturation was around 88%. As per the family, with the increased Lasix dosing, the patient did lose about 3 pounds of water weight. He is still about 7 pounds over his typical weight though. In addition to the leg edema, the patient was having a hard time laying flat. They also felt he was wheezing. The patient himself currently denies any chest pain. He admits to the shortness of breath with exertion earlier. There has been no fever. PMHx/PSHx: See Below SOCIAL HISTORY: See Below. PHYSICAL EXAM: GENERAL: Patient is in no acute distress. HEENT: No acute trauma, normocephalic atraumatic, mucous membranes moist, no nasal congestion. NECK: No stridor, no adenopathy, no meningismus, trachea is midline. LUNGS: Crackles at the bases, primarily on the left. No respiratory distress, no wheezing HEART: Without murmurs gallops or rubs, regular rate and rhythm. ABDOMEN: Soft, nontender, bowel sounds positive, no peritonitis. EXTREMITIES: No cyanosis, mild bilateral pedal edema, full range of motion of all the joints without pain or difficulty, no signs for acute trauma. NEUROLOGIC: Oriented x 3, no acute motor or sensory deficits, no focal weakness. SKIN: No rash, no jaundice, no diaphoresis. Pale. DIFFERENTIAL DIAGNOSIS: CHF, fluid overload, anemia, renal or liver failure, cardiac ischemia, MN, pleural effusion, pericardial effusion, among others. EMERGENCY DEPARTMENT COURSE/PROCEDURES: Prior/Outside records reviewed: Previous discharge summaries. ECG per my interpretation: Indication was shortness of breath. The ECG shows an AV pacemaker with a rate of 75. There is no obvious ST elevation, no PVCs. The QTc is 442 Continuous Cardiac Monitoring per my interpretation: An order was placed for continuous cardiac monitoring. The monitor shows a rate of 70 with an AV pacemaker. MEDICAL DECISION MAKING: There is no leukocytosis or concerning anemia. There is a normal platelet co unt. No worrisome coagulopathy. Sodium is somewhat low, the patient has had a lower sodium in the past. Value today was 129. There was a normal creatinine. There were some elevated liver enzymes, this type of elevation has been documented before. BNP was elevated consistent with fluid overload. Chest x- ray per my review shows CHF, no pneumothorax or focal pneumonia. ECG shows an AV pacemaker, no obvious ischemia. Cardiac enzyme testing x1 is elevated. This elevation could be secondary to the recent ablation, his CHF or potentially acute cardiac ischemia. Of note, the patient does not complain of any chest pain. COVID test returned negative. Chest CT shows a trace pericardial effusion as well as pleural effusions with CHF. A viral pneumonia was questioned versus just congestion from the CHF. The patient's blood pressure was lower in the 80-90 range systolic. I did not give any additional Lasix because of the lower blood pressure. The patient is in need of a hospital stay. He appears to be fluid overloaded. He was short of breath earlier and had an O2 saturation of around 88%. I did call and speak with Dr. Sim of cardiology. For now, gentle diuresis has been suggested. No emergent cardiac intervention this evening. I did speak with the on-call hospitalist, I did speak with case management. The family and the patient are aware of all the findings. DISPOSITION: Patient's presentation and findings warrant a hospital stay. Past Med/Surg History Medical History Atrial fibrillation, new onset Dx June 2021 > digoxin, Coumadin > follows with Dr. Sim > pacemaker BPH (benign prostatic hyperplasia) CAD (coronary artery disease) Per cardio records- mild nonobstructive CAD (20% ostial LM, 25% mid LAD, ectatic LCX with 20% proximal stenosis and a 30% distal stenosis, 30% mid RCA), normal intracardiac filling pressure. History of COVID-16 Mar 2020 > "never tested", not hospitalized, "bad cold symptoms">resolved. Hx of basal cell carcinoma "Nose, back, chest" Hyperlipidemia Hypertension Nonischemic cardiomyopathy EF 20-30% S/p pacer/ICD placement Pacemaker Pacemaker/ACID. Placed 06/2021 [facility] > [employer] Pericardial effusion RBBB Stroke Approx 7 yrs ago > no residual effects, mild stroke per pt > no neuro Ventricular tachycardia Pacemaker/ICD in place Surgical History History of cardiac cath 06/2021 > [facility] > no stents; f/u Dr. 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: No Beliefs That Will Affect Care: None marital status: Current Living Situation: Spouse and Family Feels Safe at Home: Yes Assistive Devices: None Allergies Allergies Allergy/AdvReac Type Severity Reaction Status Date / Time amoxicillin Allergy Intermediate Hives Verified 05/12/22 14:22 sulfamethoxazole Allergy Mild Unknown Verified 05/12/22 14:22 [From Bactrim] trimethoprim [From Bactrim] Allergy Mild Unknown Verified 05/12/22 14:22 Home Meds Home Medications Medication Instructions Recorded Confirmed levetiracetam 500 mg tablet 500 mg PO BID 06/30/22 07/11/22 furosemide 20 mg tablet 20 mg PO Q OTHER DAY 07/11/22 07/11/22 Previous Rx's Medication Instructions Recorded atorvastatin 40 mg tablet (Lipitor) 40 mg PO HS #30 tabs 04/30/22 finasteride 5 mg tablet (Proscar) 5 mg PO QAM #90 tabs 11/04/21 spironolactone 25 mg tablet 12.5 mg PO DAILY #15 tabs 02/26/22 metoprolol succinate 50 mg 50 mg PO BID #60 tabs 07/02/22 tablet,extended release 24 hr midodrine 2.5 mg tablet 5 mg PO TID #1 tab 07/02/22 amiodarone 200 mg tablet 400 mg PO BID #60 tabs 07/14/22 mexiletine 150 mg capsule 300 mg PO BID #90 caps 07/14/22 Results & Data (ED) Vital Signs Vital Signs - 24 hr 07/26/22 15:08 07/26/22 15:17 07/26/22 15:17 Temperature 36.7 C Temperature Source Oral Pulse Rate 84 Pulse Rate from SpO2 Sensor Pulse Rhythm Irregular Respiratory Rate 22 Respiratory Effort / Characteristics Non-Labored Spontaneous Non-Labored Respiratory Depth Normal Normal Respiratory Pattern Regular Blood Pressure 103/74 Blood Pressure Mean 83 Blood Pressure Position Sitting Pulse Oximetry 93 93 Oxygen Delivery Method Room Air Room Air Sepsis Recent Fever Within 48 Hours No Sepsis New/Unexplained Change in Mental Status No Sepsis Action Taken by Nursing No Action Required 07/26/22 16:02 07/26/22 15:52 07/26/22 15:30 Temperature Temperature Source Pulse Rate 70 Pulse Rate from SpO2 Sensor Pulse Rhythm Respiratory Rate Respiratory Effort / Characteristics Respiratory Depth Respiratory Pattern Blood Pressure 86/64 L Blood Pressure Mean 71 Blood Pressure Position Pulse Oximetry 94 Oxygen Delivery Method Room Air Sepsis Recent Fever Within 48 Hours Sepsis New/Unexplained Change in Mental Status Sepsis Action Taken by Nursing 07/26/22 15:30 07/26/22 16:00 07/26/22 16:00 Temperature Temperature Source Pulse Rate 70 70 Pulse Rate from SpO2 Sensor 70 70 Pulse Rhythm Respiratory Rate 20 22 Respiratory Effort / Characteristics Respiratory Depth Respiratory Pattern Blood Pressure 85/66 L Blood Pressure Mean 72 Blood Pressure Position Pulse Oximetry 88 L 93 Oxygen Delivery Method Sepsis Recent Fever Within 48 Hours Sepsis New/Unexplained Change in Mental Status Sepsis Action Taken by Nursing 07/26/22 16:30 07/26/22 16:30 Temperature Temperature Source Pulse Rate 70 Pulse Rate from SpO2 Sensor 71 Pulse Rhythm Respiratory Rate 19 Respiratory Effort / Characteristics Respiratory Depth Respiratory Pattern Blood Pressure 83/62 L Blood Pressure Mean 69 Blood Pressure Position Pulse Oximetry 95 Oxygen Delivery Method Sepsis Recent Fever Within 48 Hours Sepsis New/Unexplained Change in Mental Status Sepsis Action Taken by [facility] Medications Current Medication List: was personally reviewed by me Laboratory Data Attestation: I reviewed the patient's lab results. 07/26/22 15:13 07/26/22 15:13 Lab Results 07/26/22 07/26/22 07/26/22 Range/Units 15:13 15:13 15:13 WBC 9.78 (4.8-10.8) K/ul RBC 4.34 L (4.70-6.10) M/uL Hgb 14.5 (14.0-18.0) g/dl Hct 42.5 (42.0-52.0) % MCV 97.9 (80.0-100.0) fL MCH 33.4 (25.0-34.0) pg MCHC 34.1 (32.0-36.0) g/dL RDW Std Deviation 56.2 H (36.4-46.3) fL RDW Coeff of Gertrudis 15.6 H (11.5-14.5) % Plt Count 253 (130-400) K/uL MPV 9.5 (9.4-12.4) fL Immature Gran % (Auto) 1.3 % Neut % (Auto) 81.7 % Lymph % (Auto) 8.5 % Ashley % (Auto) 8.2 % Eos % (Auto) 0.1 % Baso % (Auto) 0.2 % Neut # (Auto) 7.99 H (1.40-6.50) K/uL Lymph # (Auto) 0.83 L (1.2-3.4) K/uL Ashley # (Auto) 0.80 H (0.11-0.59) K/uL Eos # (Auto) 0.01 (0-0.50) K/uL Baso # (Auto) 0.02 (0-0.2) K/uL Immature Gran # (Auto) 0.13 (0.01-0.20) K/uL PT (9.0-12.0) Seconds INR (0.9-1.1) APTT (21.0-31.0) Seconds PTT Ratio Sodium 129 L (136-145) mmol/L Potassium 4.1 (3.5-5.1) mmol/L Chloride 98 (98-107) mmol/L Carbon Dioxide 25 (21-32) mmol/L Anion Gap 6 (3-11) BUN 21 (6-23) mg/dl Creatinine 1.07 (0.6-1.4) mg/dl Est Cr Clr Drug Dosing 51.5 ml/min Est GFR ( Amer) 74.5 ml/min Est GFR (Non-Af Amer) 64.3 ml/min BUN/Creatinine Ratio 19.6 (10-20) Glucose 122 H (70-99(Fasting)) mg/dl Calcium 8.5 L (8.6-10.3) mg/dl Magnesium 1.8 (1.7-2.4) mg/dl Total Bilirubin 1.8 H (0.2-1.0) mg/dl AST 66 H (13-39) U/L ALT 151 H (7-52) U/L Alkaline Phosphatase 139 H (34-104) U/L Troponin I High Sens 555.5 H* (0-20) pg/ml B-Natriuretic Peptide 1778 H (0-100) pg/ml Total Protein 6.0 (6.0-8.3) gm/dl Albumin 3.2 L (3.4-5.0) gm/dl Globulin 2.8 (2.5-4.0) gm/dl Albumin/Globulin Ratio 1.1 (0.9-2) SARS-CoV-2, RNA, NAAT (NEGATIVE) 07/26/22 07/26/22 Range/Units 15:13 16:16 WBC (4.8-10.8) K/ul RBC (4.70-6.10) M/uL Hgb (14.0-18.0) g/dl Hct (42.0-52.0) % MCV (80.0-100.0) fL MCH (25.0-34.0) pg MCHC (32.0-36.0) g/dL RDW Std Deviation (36.4-46.3) fL RDW Coeff of Gertrudis (11.5-14.5) % Plt Count (130-400) K/uL MPV (9.4-12.4) fL Immature Gran % (Auto) % Neut % (Auto) % Lymph % (Auto) % Ashley % (Auto) % Eos % (Auto) % Baso % (Auto) % Neut # (Auto) (1.40-6.50) K/uL Lymph # (Auto) (1.2-3.4) K/uL Ashley # (Auto) (0.11-0.59) K/uL Eos # (Auto) (0-0.50) K/uL Baso # (Auto) (0-0.2) K/uL Immature Gran # (Auto) (0.01-0.20) K/uL PT 12.3 H (9.0-12.0) Seconds INR 1.1 (0.9-1.1) APTT 27.5 (21.0-31.0) Seconds PTT Ratio 1.0 Sodium (136-145) mmol/L Potassium (3.5-5.1) mmol/L Chloride (98-107) mmol/L Carbon Dioxide (21-32) mmol/L Anion Gap (3-11) BUN (6-23) mg/dl Creatinine (0.6-1.4) mg/dl Est Cr Clr Drug Dosing ml/min Est GFR ( Amer) ml/min Est GFR (Non-Af Amer) ml/min BUN/Creatinine Ratio (10-20) Glucose (70-99(Fasting)) mg/dl Calcium (8.6-10.3) mg/dl Magnesium (1.7-2.4) mg/dl Total Bilirubin (0.2-1.0) mg/dl AST (13-39) U/L ALT (7-52) U/L Alkaline Phosphatase (34-104) U/L Troponin I High Sens (0-20) pg/ml B-Natriuretic Peptide (0-100) pg/ml Total Protein (6.0-8.3) gm/dl Albumin (3.4-5.0) gm/dl Globulin (2.5-4.0) gm/dl Albumin/Globulin Ratio (0.9-2) SARS-CoV-2, RNA, NAAT NEGATIVE (NEGATIVE) Imaging Data Radiologist's Impression: Chest X-Ray 07/26/22 15:52 XR chest 1V portable HISTORY: Dyspnea COMPARISON: Chest 07/11/2022. FINDINGS: No pneumothorax. There are low lung volumes. The cardiac silhouette remains enlarged. Is left-sided pacemaker/defibrillator. Degenerative changes again noted within the right shoulder. Progressive interstitial/vascular thickening consistent with mild pulmonary edema. Small bilateral pleural effusions and bibasilar densities have also progressed. IMPRESSION: 1. Interval progression of the mild interstitial pulmonary edema and small bilateral pleural effusions. 2. Bibasilar densities are nonspecific but favor compressive atelectasis from the pleural effusions. ACT 112: Negative or not required by law. Electronically signed by: Prince Kennedy M.D. 07/26/2022 4:[address] 07/26/22 16:50 CT chest diagnostic wo con CT DOSE: 287.18 mGy.cm HISTORY: Shortness of breath, recent ablation TECHNIQUE: Multiaxial CT images of the chest were performed without contrast. A dose lowering technique was utilized adhering to the principles of ALARA. COMPARISON: Chest CTA 02/23/2022. FINDINGS: There is mild body wall edema. Advanced degenerative changes again noted within the right shoulder. Normal thyroid gland. No mediastinal or hilar lymphadenopathy. The heart remains moderately enlarged. A trace pericardial effusion has improved. There are severe coronary artery calcifications again noted. There is a left-sided pacemaker. Mild calcified plaque within the normal caliber thoracic aorta. Normal esophagus. Limited views of the upper abdomen demonstrate a normal spleen and adrenal glands. Hyperdense liver may represent amiodarone toxicity. This remains unchanged. There is also hyperdense lung parenchyma which can also be seen in the setting of amiodarone toxicity. Moderate bilateral pleural effusions are similar in size. There are healing/healed left-sided rib fractures. No acute fractures identified within the chest. There is a subacute mild superior endplate compression fracture at T12. This is new from the prior study. No associated retropulsion. No pneumothorax. The central airways are patent. Consolidation within the lower lobes posteriorly favor compressive atelectasis from the pleural effusions. This is similar to the prior study. Scattered calcified granulomas within the lungs. There are few small scattered patchy groundglass airspace opacities within the aerated lungs most pronounced within the upper lobes. This is new from the prior study. This favors an atypical/viral pneumonitis. Mild congestive change could also have a similar appearance. IMPRESSION: 1. . There are few small scattered patchy groundglass airspace opacities within the aerated lungs most pronounced within the upper lobes. This is new from the prior study. This favors an atypical/viral pneumonitis. Mild congestive change could also have a similar appearance. 2. No significant change in the cardiomegaly and moderate bilateral pleural effusions. A trace pericardial effusion has improved. 3. Bilateral lower lobe densities favor atelectasis from the pleural effusions. These areas are hyperdense. In conjunction with the hyperdense liver this favors amiodarone toxicity. 4. Healing/healed left-sided rib fractures. No acute rib fractures. No pneumothorax. 5. There is a subacute mild superior endplate compression fracture at T12. No associated retropulsion. 6. Additional findings as described above. ACT 112: Negative or not required by law. Electronically signed by: Prince Kennedy M.D. 07/26/2022 5:20 PM Discharge Plan Visit Data Chief Complaint: Shortness of Breath/Dyspnea Stated Complaint: SOB ED Provider: John Smith Discharge Problem: Hypoxia, Elevated troponin, CHF (congestive heart failure), SOB (shortness of breath), Hypotension Patient Disposition: Admitted As Inpatient Condition: Fair Forms Stand Alone Forms: [facility] [place] [employer] Prescriptions Prescriptions: No Action finasteride [Proscar] 5 mg tablet 5 mg PO QAM Qty: 90 3RF atorvastatin [Lipitor] 40 mg tablet 40 mg PO HS Qty: 30 0RF levetiracetam 500 mg tablet 500 mg PO BID midodrine 2.5 mg tablet 5 mg PO TID Qty: 1 0RF metoprolol succinate 50 mg tablet extended release 24 hr 50 mg PO BID Qty: 60 0RF spironolactone 25 mg Tablet 12.5 mg PO DAILY Qty: 15 0RF furosemide 20 mg tablet 20 mg PO Q OTHER DAY amiodarone 200 mg Tablet 400 mg PO BID Qty: 60 0RF mexiletine 150 mg Capsule 300 mg PO BID Qty: 90 0RF Referrals Referrals: Cee Pope CRNP [Primary Care Provider] -
--- NOTE | 2022-07-26 16:23 | XRay Report ---
XR chest 1V portable HISTORY: Dyspnea COMPARISON: Chest 07/11/2022. FINDINGS: No pneumothorax. There are low lung volumes. The cardiac silhouette remains enlarged. Is le ft-sided pacemaker/defibrillator. Degenerative changes again noted within the right shoulder. Progres sive interstitial/vascular thickening consistent with mild pulmonary edema. Small bilateral pleural e ffusions and bibasilar densities have also progressed. IMPRESSION: 1. Interval progression of the mild interstitial pulmonary edema and small bilateral pleural effusion s. 2. Bibasilar densities are nonspecific but favor compressive atelectasis from the pleural effusions. ACT 112: Negative or not required by law. Electronically signed by: Prince Kennedy M.D. 07/26/2022 4:21 PM
[2022-07-26 16:26] LABS: Troponin I High Sensitivity 555.5 pg/ml (0-20)
[2022-07-26 16:39] LABS: INR 1.1 (0.9-1.1); Partial Thromboplastin Time 27.5 Seconds (21.0-31.0); Prothrombin Time 12.3 Seconds (9.0-12.0)
--- NOTE | 2022-07-26 17:23 | CT Scan Report ---
CT chest diagnostic wo con CT DOSE: 287.18 mGy.cm HISTORY: Shortness of breath, recent ablation TECHNIQUE: Multiaxial CT images of the chest were performed without contrast. A dose lowering techni que was utilized adhering to the principles of ALARA. COMPARISON: Chest CTA 02/23/2022. FINDINGS: There is mild body wall edema. Advanced degenerative changes again noted within the right s houlder. Normal thyroid gland. No mediastinal or hilar lymphadenopathy. The heart remains moderately enlarged. A trace pericardial effusion has improved. There are severe coronary artery calcifications again noted. There is a left-sided pacemaker. Mild calcified plaque within the normal caliber thoraci c aorta. Normal esophagus. Limited views of the upper abdomen demonstrate a normal spleen and adrenal glands. Hyperdense liver may represent amiodarone toxicity. This remains unchanged. There is also hy perdense lung parenchyma which can also be seen in the setting of amiodarone toxicity. Moderate bilat eral pleural effusions are similar in size. There are healing/healed left-sided rib fractures. No acu te fractures identified within the chest. There is a subacute mild superior endplate compression frac ture at T12. This is new from the prior study. No associated retropulsion. No pneumothorax. The centr al airways are patent. Consolidation within the lower lobes posteriorly favor compressive atelectasis from the pleural effusions. This is similar to the prior study. Scattered calcified granulomas withi n the lungs. There are few small scattered patchy groundglass airspace opacities within the aerated l ungs most pronounced within the upper lobes. This is new from the prior study. This favors an atypica l/viral pneumonitis. Mild congestive change could also have a similar appearance. IMPRESSION: 1. . There are few small scattered patchy groundglass airspace opacities within the aerated lungs mos t pronounced within the upper lobes. This is new from the prior study. This favors an atypical/viral pneumonitis. Mild congestive change could also have a similar appearance. 2. No significant change in the cardiomegaly and moderate bilateral pleural effusions. A trace perica rdial effusion has improved. 3. Bilateral lower lobe densities favor atelectasis from the pleural effusions. These areas are hyper dense. In conjunction with the hyperdense liver this favors amiodarone toxicity. 4. Healing/healed left-sided rib fractures. No acute rib fractures. No pneumothorax. 5. There is a subacute mild superior endplate compression fracture at T12. No associated retropulsion . 6. Additional findings as described above. ACT 112: Negative or not required by law. Electronically signed by: Prince Kennedy M.D. 07/26/2022 5:20 PM
--- NOTE | 2022-07-26 17:58 | History & Physical Report ---
Date of Service July 26, 2022 Assessment & Plan (1) Acute on chronic combined systolic (congestive) and diastolic (congestive) heart failure: (2) Nonobstructive cardiomyopathy: Plan: Patient is 82-year-old male with PMH nonobstructive cardiomyopathy, ICD in plac e VT, s/p ablation 07/21/2022, paroxysmal atrial fibrillation not currently on anticoagulation secondary to history of subdural hematoma and hemoperitoneum, CVA, seizure disorder, chronic transaminitis, HTN, HLD, BPH presented to ER for shortness of breath, orthopnea and BLE edema x 3 days. In ER not hypoxic, BPs soft. BNP: 1778. CXR: Interval progression of the mild interstitial pulmonary edema and small bilateral pleural effusions. Bibasilar densities are nonspecific but favor compressive atelectasis from the pleural effusions. CT Chest: 1. . There are few small scattered patchy groundglass airspace opacities within the aerated lungs most pronounced within the upper lobes. This is new from the prior study. This favors an atypical/viral pneumonitis. Mild congestive change could also have a similar appearance. 2. No significant change in the cardiomegaly and moderate bilateral pleural effusions. A trace pericardial effusion has improved. 3. Bilateral lower lobe densities favor atelectasis from the pleural effusions. These areas are hyperdense. In conjunction with the hyperdense liver this favors amiodarone toxicity. 4. Healing/healed left-sided rib fractures. No acute rib fractures. No pneumothorax. 5. There is a subacute mild superior endplate compression fracture at T12. No associated retropulsion. Family had increased home lasix from 20mg daily to 40 mg daily past couple of days at home with 3lb weight loss and decreased BLE and decreased orthopnea Currently patient comfortable in bed, no hypoxia. We will hold on further Lasix tonight Lasix 20 mg IV tomorrow a.m. x 1 dose. Assess for further diuresis Continue home spironolactone with holding parameters Monitor I's and O's, daily weight, low-sodium diet Incentive spirometry CBC, BMP in a.m Cardiology consult. ER physician spoke to on-call Dr. Sim who recommended careful diuresis, and will see patient tomorrow History Echo 06/30/2022: Moderate inferior and inferolateral wall motion abnormality with akinesis of the segments at the basal and mid levels, otherwise moderate to severe global hypokinesis. EF 25-29%, moderate MR, moderate TR, moderate pulmonary hypertension, grade II diastolic dysfunction (3) Ventricular tachycardia: Plan: History V. tach. ICD in place. S/P ablation/ at [facility] Recent dc on 07/23/22 with mexiletine discontinued & amiodarone decreased to 200mg daily No reported recent firings of ICD Monitor on telemetry Continue amiodarone 200mg daily (4) Elevated troponin: Plan: High-sensitivity troponin: 555. Patient denies any chest pain. EKG: Paced rhythm Recent ablation for recurrent V. tach on 07/21/2022 Trend troponin History Echo 06/30/2022: Moderate inferior and inferolateral wall motion abnormality with akinesis of the segments at the basal and mid levels, otherwise moderate to severe global hypokinesis. EF 25-29%, moderate MR, moderate TR, moderate pulmonary hypertension, grade II diastolic dysfunction (5) Hyponatremia: Plan: Na: 129. Was 134 on 07/14/2022 Likely secondary to increased Lasix dosing Repeat BMP in a.m. May need to consider hyponatremia workup (6) Paroxysmal atrial fibrillation: Plan: Previously on warfarin. Not currently on anticoagulation secondary to history of subdural hematoma, hemoperitoneum Continue metoprolol succinate with holding parameters (7) Stroke: Plan: Continue atorvastatin (8) Seizure disorder: Plan: Continue Keppra (9) BPH (benign prostatic hyperplasia): Plan: Continue finasteride DVT Prophylaxis Heparin SQ Full Code as per discussion with pt Follows with [facility] for routine care Pt was seen and care coordinated with Dr Barrera. See addendum I spent a total of 84 minutes reviewing notes, outpatient records, labs, medication, coordinating, documenting and providing care for this patient excluding time spent in the performance of separately billed services. History of Present Illness Chief Complaint: SOB Primary Care Provider: VIVIAN Stovall Patient is 82-year-old male with PMH nonobstructive cardiomyopathy, ICD in place VT, s/p ablation 07/21/2022, paroxysmal atrial fibrillation not currently on anticoagulation secondary to history of subdural hematoma and hemoperitoneum, CVA, seizure disorder, chronic transaminitis, HTN, HLD, BPH presented to ER for shortness of breath x3 days. History obtained from patient, patient's daughter and inpatient and outpatient chart review. History of recurrent hospitalization for VT, most recent hospitalization at [facility] 07/11/2022-07/14/2022 for V. tach. During that admission amiodarone was increased to 400 milligrams twice daily, mexiletine increased to 300 mg twice daily. Patient was discharged home with plan for outpatient VT ablation at [facility]. Patient admitted at [facility] 07/15/22-07/23/22 for weakness. During admission he had additional episodes of VT and EP adjusted medications and ICD settings were adjusted. Had ablation on 07/21/22. No further episodes of VT. Worked with PT/OT and discharged home on 07/23/22. Upon discharge mexiletine discontinued, midodrine discontinued, amiodarone decreased to 200mg daily, and was discharged on lasix 20mg daily and spironolactone 12.5mg daily. Family report patient was up 10 pounds on discharge. At home they noticed BLE edema and patient had orthopnea. He has been sleeping in recliner secondary to orthopnea. He was becoming SOB with exertion. Family gave patient Lasix 40mg on 07/24 and 07/25. Today he is down 3 pounds and has noted improvement of SOB. He has been intermittently bringing up clear phlegm, otherwise denies increased cough. He has been weak since all recent hospitalizations, but family feel starting to show some increased strength. They would like to keep family at home but are willing to have PT/OT evaluations. Denies fever/chills, diaphoresis, N/V/D/C, SCHUSTER, dizziness, syncope, CP, palpitations, hemoptysis, rhinorrhea, abdominal pain, rashes, urinary symptoms. Allergies Allergy/AdvReac Type Severity Reaction Status Date / Time amoxicillin Allergy Intermediate Hives Verified 05/12/22 14:22 sulfamethoxazole Allergy Mild Unknown Verified 07/26/22 18:48 [From Bactrim] trimethoprim [From Bactrim] Allergy Mild Unknown Verified 07/26/22 18:48 Home Medications Medication Instructions Recorded Confirmed Type atorvastatin 40 mg tablet (Lipitor) 40 mg PO HS #30 tabs 07/26/21 07/26/22 Rx finasteride 5 mg tablet (Proscar) 5 mg PO QAM #90 tabs 11/04/21 07/26/22 Rx spironolactone 25 mg tablet 12.5 mg PO DAILY #15 tabs 02/26/22 07/26/22 Rx levetiracetam 500 mg tablet 500 mg PO BID 06/30/22 07/26/22 History furosemide 20 mg tablet 20 mg PO DAILY 07/11/22 07/26/22 History amiodarone 200 mg tablet 200 mg PO BID 07/26/22 07/26/22 History escitalopram oxalate 10 mg tablet 10 mg PO HS 07/26/22 07/26/22 History metoprolol succinate 50 mg 75 mg PO BID 07/26/22 07/26/22 History tablet,extended release 24 hr Past Med/Surg History Medical History Atrial fibrillation, new onset Dx June 2021 > digoxin, Coumadin > follows with Dr. Sim > pacemaker BPH (benign prostatic hyperplasia) CAD (coronary artery disease) Per cardio records- mild nonobstructive CAD (20% ostial LM, 25% mid LAD, ectatic LCX with 20% proximal stenosis and a 30% distal stenosis, 30% mid RCA), normal intracardiac filling pressure. History of COVID-16 Mar 2020 > "never tested", not hospitalized, "bad cold symptoms">resolved. Hx of basal cell carcinoma "Nose, back, chest" Hyperlipidemia Hypertension Nonischemic cardiomyopathy EF 20-30% S/p pacer/ICD placement Pacemaker Pacemaker/ACID. Placed 06/2021 [facility] > [employer] Pericardial effusion RBBB Stroke Approx 7 yrs ago > no residual effects, mild stroke per pt > no neuro Ventricular tachycardia Pacemaker/ICD in place Surgical History History of cardiac cath 06/2021 > [facility] > no stents; f/u Dr. Sim History of colonoscopy History of tooth extraction Family History Father Colorectal cancer Social History (Updated 07/26/22 @ 18:20 by Dalila Ervin PA-C) Smoking Status: Former smoker Second Hand Exposure: No; Do You Dip or Chew Tobacco: No; Hx Alcohol Use: No Hx Substance Use: No Preferred Language: Bahamian Communication Ability: Effective Clamshell Operator Required: No Beliefs That Will Affect Care: None marital status: Current Living Situation: Spouse and Family Feels Safe at Home: Yes Assistive Devices: None Review of Systems Review of Systems: All systems reviewed & are unremarkable except as noted in HPI & below Physical Exam Physical Exam: General: no distress, WDWN Head: normocephalic, atraumatic Eyes: conjunctiva non-injected, anicteric ENT: +hard of hearing, normal inspection external ears, nose, mucous membranes moist Neck: supple, trachea midline Lungs: no respiratory distress, no wheezing/rhonchi, very faint rales LLL CV: RRR, no murmur, trace pretibial edema, +ICD palpable chest wall without erythema or edema Abd: normal BS, soft, non-tender Ext: no cyanosis, no calf tenderness Neuro: A&O x 3, no focal deficits noted, normal affect Skin: warm, dry Results & Data Results & Data Vital Signs (Past 12 Hours) Vital Signs Temp Pulse Resp BP Pulse Ox O2 Del Method 07/26/22 16:30 70 19 95 07/26/22 16:30 83/62 L 07/26/22 16:00 70 22 93 07/26/22 16:00 85/66 L 07/26/22 15:30 70 20 88 L 07/26/22 15:30 86/64 L 07/26/22 15:52 94 Room Air 07/26/22 16:02 70 07/26/22 15:17 93 Room Air 07/26/22 15:08 36.7 C 84 22 103/74 93 Room Air Laboratory Results Short CBC 07/26/22 Range/Units 15:13 WBC 9.78 (4.8-10.8) K/ul Hgb 14.5 (14.0-18.0) g/dl Hct 42.5 (42.0-52.0) % Plt Count 253 (130-400) K/uL BMP 07/26/22 15:13 Sodium 129 L Potassium 4.1 Chloride 98 Carbon Dioxide 25 BUN 21 Creatinine 1.07 Glucose 122 H Calcium 8.5 L Liver Function 07/26/22 Range/Units 15:13 Total Bilirubin 1.8 H (0.2-1.0) mg/dl AST 66 H (13-39) U/L ALT 151 H (7-52) U/L Alkaline Phosphatase 139 H (34-104) U/L Albumin 3.2 L (3.4-5.0) gm/dl Diagnostic Findings Chest X-Ray 07/26/22 15:52 XR chest 1V portable HISTORY: Dyspnea COMPARISON: Chest 07/11/2022. FINDINGS: No pneumothorax. There are low lung volumes. The cardiac silhouette remains enlarged. Is left-sided pacemaker/defibrillator. Degenerative changes again noted within the right shoulder. Progressive interstitial/vascular thickening consistent with mild pulmonary edema. Small bilateral pleural effusions and bibasilar densities have also progressed. IMPRESSION: 1. Interval progression of the mild interstitial pulmonary edema and small bilateral pleural effusions. 2. Bibasilar densities are nonspecific but favor compressive atelectasis from the pleural effusions. ACT 112: Negative or not required by law. Electronically signed by: Prince Kennedy M.D. 07/26/2022 4:[address] 07/26/22 16:50 CT chest diagnostic wo con CT DOSE: 287.18 mGy.cm HISTORY: Shortness of breath, recent ablation TECHNIQUE: Multiaxial CT images of the chest were performed without contrast. A dose lowering technique was utilized adhering to the principles of ALARA. COMPARISON: Chest CTA 02/23/2022. FINDINGS: There is mild body wall edema. Advanced degenerative changes again noted within the right shoulder. Normal thyroid gland. No mediastinal or hilar lymphadenopathy. The heart remains moderately enlarged. A trace pericardial effusion has improved. There are severe coronary artery calcifications again noted. There is a left-sided pacemaker. Mild calcified plaque within the normal caliber thoracic aorta. Normal esophagus. Limited views of the upper abdomen demonstrate a normal spleen and adrenal glands. Hyperdense liver may represent amiodarone toxicity. This remains unchanged. There is also hyperdense lung parenchyma which can also be seen in the setting of amiodarone toxicity. Moderate bilateral pleural effusions are similar in size. There are healing/healed left-sided rib fractures. No acute fractures identified within the chest. There is a subacute mild superior endplate compression fracture at T12. This is new from the prior study. No associated retropulsion. No pneumothorax. The central airways are patent. Consolidation within the lower lobes posteriorly favor compressive atelectasis from the pleural effusions. This is similar to the prior study. Scattered calcified granulomas within the lungs. There are few small scattered patchy groundglass airspace opacities within the aerated lungs most pronounced within the upper lobes. This is new from the prior study. This favors an atypical/viral pneumonitis. Mild congestive change could also have a similar appearance. IMPRESSION: 1. . There are few small scattered patchy groundglass airspace opacities within the aerated lungs most pronounced within the upper lobes. This is new from the prior study. This favors an atypical/viral pneumonitis. Mild congestive change could also have a similar appearance. 2. No significant change in the cardiomegaly and moderate bilateral pleural effusions. A trace pericardial effusion has improved. 3. Bilateral lower lobe densities favor atelectasis from the pleural effusions. These areas are hyperdense. In conjunction with the hyperdense liver this favors amiodarone toxicity. 4. Healing/healed left-sided rib fractures. No acute rib fractures. No pneumothorax. 5. There is a subacute mild superior endplate compression fracture at T12. No associated retropulsion. 6. Additional findings as described above. ACT 112: Negative or not required by law. Electronically signed by: Prince Kennedy M.D. 07/26/2022 5:20 PM ECG Findings: + paced rhythm Supervising Physician Co-Signing Physician Notes Examined patient alongside physician finance assistant. Cardiology consult ordered Patient is not short of breath at this time 0/e Neuro: AAOx3, PERRLA. HEENT: head normocephalic, CV: S1/S2, Resp: Lungs clear. GI: Abdomen non tender. Musculoskeletal: 5/5 B/L UE strength Skin: No rashes Psych:normal affect spoke to daughter at bedside and discussed plan of care . ordered PT and OT.
[2022-07-26] MEDS ORDERED: ACETAMINOPHEN 325 MG TAB PO PRN (21:32)
[2022-07-26] MEDS ORDERED: POLYETHYLENE (MIRALAX) 17 GM PACK PO PRN (21:32)
[2022-07-26] MEDS: METOPROLOL SUCC 25MG EXT REL TAB PO SCH (22:13)
[2022-07-26] MEDS: MELATONIN 3 MG TAB PO SCH (22:14)
[2022-07-26] MEDS: ATORVASTATIN 40 MG TAB PO SCH (22:14)
[2022-07-26] MEDS: ESCITALOPRAM OXALATE 10 MG TAB PO SCH (22:14)
[2022-07-26] MEDS: levETIRAcetam 500 MG TAB PO SCH (22:15)
[2022-07-26] MEDS: HEPARIN SOD 5,000 UNIT/0.5 ML VIAL SQ SCH (22:17)
[2022-07-27 04:28] LABS: BUN Creatinine Ratio 18.7 (10-20); Calcium 8.3 mg/dl (8.6-10.3); Est GFR (African American) 90.6 ml/min; Est GFR (Non-African American) 78.2 ml/min; Magnesium 1.8 mg/dl (1.7-2.4); Potassium 3.8 mmol/L (3.5-5.1)
[2022-07-27 04:29] LABS: Hematocrit (blood only) 42.1 % (42.0-52.0); Hemoglobin 14.3 g/dl (14.0-18.0); Mean Corpuscular Hemoglobin 32.9 pg (25.0-34.0); Mean Platelet Volume 9.2 fL (9.4-12.4); Platelet Count 232 K/uL (130-400); RDW Coefficient of Variation 15.3 % (11.5-14.5); RDW Standard Deviation 54.6 fL (36.4-46.3); Red Blood Count 4.34 M/uL (4.70-6.10); White Blood Count 9.27 K/ul (4.8-10.8)
[2022-07-27 06:20] LABS: Appearance Urine Clear (Clear); Bilirubin Urine Negative (Negative); Blood Urine Negative (Negative); Color Urine Dark Yellow; Glucose Urine UA Negative (Negative); Ketones Urine Negative (Negative); Leukocyte Esterase Urine Negative (Negative); Nitrite Urine Negative (Negative); Protein Urine Negative (Negative); Specific Gravity Urine 1.013 (1.000-1.030); Urobilinogen Urine Negative (Negative); pH Urine 5.5 (4.5-7.5)
[2022-07-27] MEDS: AMIODARONE 200 MG TAB PO SCH (08:09)
[2022-07-27] MEDS: FINASTERIDE 5 MG TAB PO SCH (08:10)
[2022-07-27] MEDS: METOPROLOL SUCC 25MG EXT REL TAB PO SCH ×2 (08:10→20:45)
[2022-07-27] MEDS: SPIRONOLACTONE 12.5 MG TAB PO SCH (08:10)
[2022-07-27] MEDS: levETIRAcetam 500 MG TAB PO SCH ×2 (08:10→20:45)
[2022-07-27] MEDS ORDERED: FUROSEMIDE INJ 20 MG/2 ML VIAL IV SCH (09:00)
[2022-07-27] MEDS: HEPARIN SOD 5,000 UNIT/0.5 ML VIAL SQ SCH ×2 (09:59→20:46)
--- NOTE | 2022-07-27 12:05 | Cardiology Consultation ---
Date of Consultation July 27, 2022 Assessment & Plan (1) Acute on chronic HFrEF (heart failure with reduced ejection fraction): - Patient with increasing bilateral pleural effusions, orthopnea, weight gain. Diuretic dose limited due to relative hypotension. -Resume previous dose of midodrine 5 mg 3 times daily. I believe it was the mexiletine that was making him feel ill, and he seemed to be doing well with the midodrine for blood pressure support. -Furosemide 20 mg IV daily. This was to be administered this morning as soon as his IV access was replaced. -Monitor sodium levels, anticipate they will improve with treatment with furosemide. -The patient's mild troponin elevation is likely due to chronic heart failure and the recent radiofrequency ablation. Presentation does not suggest an acute coronary syndrome. (2) Ventricular tachycardia: - Recent history of recurrent sustained ventricular tachycardia events despite chronic amiodarone treatment. Events have been treated with antitachycardia pacing and ICD shocks. Ultimately underwent electrophysiology study on 07/21/2022. Ventricular tachycardia induced with a single paced premature ventricular beat arising from a scar of the basal inferior, inferolateral wall. Per my discussion with the electrophysiology provider who performed the procedure, the patient became hypotensive with systolic blood pressure down to the 50s with ventricular tachycardia. This was treated with multiple radiofrequency applications. No recurrence of ventricular tachycardia overnight last night on telemetry. -He is off of mexiletine which he did not tolerate well, and was not very effective either. -Amiodarone 200 mg daily continued down from his previous dose of 400 mg twice daily. Continue metoprolol succinate 75 mg twice daily. -The radiology report of the CT of the chest discusses concerns of possible amiodarone related lung and liver toxicity. This medication however is felt to be a life-sustaining medication for him at this point, I think it is premature to wean his dose and believe that he needs it for both ventricular tachycardia suppression and atrial fibrillation suppression as he does not tolerate either of these arrhythmias from a hemodynamic standpoint. (3) Hyponatremia: - Continue diuretic therapy. History of Present Illness Attending Physician: Rambo Posadas MD History of Present Illness Mr Musa is an 82 year old male seen in cardiology consultation per the request of Soila Ervin PA-C for the evaluation of acute on chronic heart failure with reduced ejection fraction. Patient is well-known to the undersigned. He is known to have severe left ventricular systolic dysfunction, felt to be due to a nonischemic cardiomyopathy as the cardiomyopathy has been out of proportion to his degree of coronary artery disease. His daughter, Jasmyne, was at the bedside at the time of my assessment. He has had multiple recent admissions this is situation for congestive heart failure as well as symptomatic recurrent sustained ventricular tachycardia, most recently discharged on 07/14/2022. Shortly thereafter he presented to the emergency department at [facility] on 07/16/2022 and was observed to have a recurrent episode of ventricular tachycardia while there. He was admitted and ultimately underwent electrophysiology study and ventricular tachycardia radiofrequency ablation on 07/21/[address] Escalona of electrophysiology. He was subsequently discharged 2 days later on 07/23/2022. Medication changes included discontinuation of mexiletine, and discontinuation of midodrine. He was discharged on a dose of furosemide 20 mg daily. Upon arriving to home, his weight was at least 10 pounds more than his usual baseline, and he had been h aving progressive dyspnea and orthopnea over the last few days. Late last week, his daughter had been giving him 40 of furosemide a day, but yesterday due to progressive shortness of breath and wheezing he presented to the emergency department. Chest x-ray performed 07/26/2022, radiology report reviewed as well as image reviewed independently revealing small bilateral pleural effusions, with fluid in the right horizontal fissure, worse compared to the previous chest x-ray performed 07/11/2022. Noncontrast CT of the chest performed 07/26/2022 revealed groundglass airspace opacities within the lungs in the upper lobes possibly due to pneumonitis or congestive heart failure. Moderate bilateral pleural effusions noted by CT criteria per the radiology report as well as a trace pericardial effusion. Hyperdensity of the liver noted in the setting of chronic amiodarone treatment. Admission(07/21/2021 until 07/26/2021)following sustained ventricular tachycardia with resultant syncope, status post cardioversion in the field Atrial fibrillation/flutter with a rapid ventricular response of unknown duration noted on admission; [id number] Score of at least 6 points -July 22, 2021 Coronary Angiography ([facility], Dr. Saavedra) with mild nonobstructive CAD (20% ostial LM, 25% mid LAD, ectatic LCX with 20% proximal stenosis and a 30% distal stenosis, 30% mid RCA), normal intracardiac filling pressure. -New onset nonischemic cardiomyopathy with NYHA Class II+ CHF, EF 25-30%, right bundle branch block with QRS duration 162 ms (possibly a component of tachycardia induced cardiomyopathy, however unfortunately left ventricular systolic function has not improved status post rate control, cardioversion, biventricular pacemaker AICD) -Status post biventricular pacemaker defibrillator implantation on 07/25/[address] Rae. -Intermittent gross hematuria while on heparin; evaluation by Urology 07/24/2021, with cystoscopy, CT of the abdomen pelvis, findings of enlarged prostate, chay dder stone -admission, [facility] , 01/21/2022 until 01/26/2022, presenting with generalized weakness, relative hypotension, with systolic blood pressure in the 90s to low 100s, [facility], [id number] pericardial effusion with CT findings suggestive hemopericardium. This prompted discontinuation of warfarin. Lisinopril discontinued, metoprolol succinate 100 milligrams twice daily reduced to 50 milligrams daily, diuretics held -admission, [facility], 02/23/2022-02/26/2022, acute on chronic heart failure with reduced ejection fraction, appropriate AICD shock prior to hospitalization -03/04/2022, he had a seizure episode that night prompting presentation to the emergency department at [facility]. A CT of the brain performed that evening 03/04/2022 revealed bilateral mixed attenuation subdural hematomas as well as a fracture of the left zygomatic arch. Both of these findings were new compared to a previous CT performed 11/18/2021. - appropriate AICD discharge 06/13/2022, 06/30/2022, VT while on amiodarone 200 milligrams twice daily - 06/30/2022 until 07/02/2022 for recurrent ventricular tachycardia and ICD discharges. At that time settings were changed on his AICD to lower the heart rate at which the ventricular tachycardia episodes would be detected to a level of 140 bpm, and the treatment strategy was changed to allow for more antitachycardia pacing attempts prior to ICD discharges. His prior to hospital treatment with amiodarone 200 mg twice daily was continued, and mexiletine 150 mg 3 times daily was added. -07/11/2022-07/14/2022 admitted to [facility] with recurrent ventricular tachycardia, ICD discharge, at that time he was reloaded with amiodarone, mexiletine dose increased to 300 mg twice daily, amiodarone dose increased to 400 mg twice daily, Lexapro discontinued, discharging furosemide 20 mg daily -07/16/2022-07/23/2022 admitted to [facility], with recurrent ventricular tachycardia. Underwent electrophysiology study and ventricular tachycardia radiofrequency ablation 07/21/2022 -Mildly abnormal TSH -Hypertension -Dyslipidemia -History of CVA, 2017 Allergies Allergy/AdvReac Type Severity Reaction Status Date / Time amoxicillin Allergy Intermediate Hives Verified 05/12/22 14:22 sulfamethoxazole Allergy Mild Unknown Verified 07/26/22 18:48 [From Bactrim] trimethoprim [From Bactrim] Allergy Mild Unknown Verified 07/26/22 18:48 Home Medications Medication Instructions Recorded Confirmed Type atorvastatin 40 mg tablet (Lipitor) 40 mg PO HS #30 tabs 07/26/21 07/26/22 Rx finasteride 5 mg tablet (Proscar) 5 mg PO QAM #90 tabs 11/04/21 07/26/22 Rx spironolactone 25 mg tablet 12.5 mg PO DAILY #15 tabs 02/26/22 07/26/22 Rx levetiracetam 500 mg tablet 500 mg PO BID 06/30/22 07/26/22 History furosemide 20 mg tablet 20 mg PO DAILY 07/11/22 07/26/22 History amiodarone 200 mg tablet 200 mg PO BID 07/26/22 07/26/22 History escitalopram oxalate 10 mg tablet 10 mg PO HS 07/26/22 07/26/22 History metoprolol succinate 50 mg 75 mg PO BID 07/26/22 07/26/22 History tablet,extended release 24 hr Patient History Medical History Atrial fibrillation, new onset Dx June 2021 > digoxin, Coumadin > follows with Dr. Sim > pacemaker BPH (benign prostatic hyperplasia) CAD (coronary artery disease) Per cardio records- mild nonobstructive CAD (20% ostial LM, 25% mid LAD, ectatic LCX with 20% proximal stenosis and a 30% distal stenosis, 30% mid RCA), normal intracardiac filling pressure. History of COVID-16 Mar 2020 > "never tested", not hospitalized, "bad cold symptoms">resolved. Hx of basal cell carcinoma "Nose, back, chest" Hyperlipidemia Hypertension Nonischemic cardiomyopathy EF 20-30% S/p pacer/ICD placement Pacemaker Pacemaker/ACID. Placed 06/2021 [facility] > [employer] Pericardial effusion RBBB Stroke Approx 7 yrs ago > no residual effects, mild stroke per pt > no neuro Ventricular tachycardia Pacemaker/ICD in place Surgical History History of cardiac cath 06/2021 > [facility] > no stents; f/u Dr. Sim History of colonoscopy History of tooth extraction Family History Father Colorectal cancer Social History Smoking Status: Former smoker Smoking End Date: 60 years ago; Second Hand Exposure: No; Do You Dip or Chew Tobacco: No; Hx Alcohol Use: No Hx Substance Use: No Preferred Language: Beninese Communication Ability: Effective Instructional Design Manager Required: No Beliefs That Will Affect Care: None marital status: Current Living Situation: Spouse and Family Other Information That Helps Us Care for You: No Feels Safe at Home: Yes Safety Concerns: Feels Safe At This Time Assistive Devices: Walker Review of Systems Review of Systems: All systems reviewed & are unremarkable except as noted in HPI & below Physical Exam Constitutional: + cachectic Respiratory: no respiratory distress and does not use accessory muscles Auscultation: + diminished lung sounds (Decreased breath sounds at the bases bilaterally); no crackles and no rales Cardiovascular: Rate/Rhythm: regular rate and regular rhythm Heart Sounds: normal S1 and normal S2; no murmur Extremities: + edema (Trace bilateral lower extremity edema, pedal edema) Gastrointestinal (Abdomen): normal bowel sounds, soft, nontender, no hepatosplenomegaly Neurologic: PERRL, EOMI, accommodation nl, no face palsy, no dysarthria Results & Data Vital Signs (Past 12 Hours) Vital Signs Temp Pulse Resp BP Pulse Ox O2 Del Method 07/27/22 08:00 Room Air 07/27/22 07:33 36.3 C L 72 18 100/66 94 Room Air 07/27/22 03:29 36.6 C 70 20 109/74 93 Room Air Laboratory Results Cardiac Enzymes 07/26/22 07/26/22 07/26/22 Range/Units 15:13 15:13 22:23 AST 66 H (13-39) U/L Troponin I High Sens 555.5 H* 488.9 H* (0-20) pg/ml B-Natriuretic Peptide 1778 H (0-100) pg/ml 07/27/22 Range/Units 03:51 AST (13-39) U/L Troponin I High Sens 503.5 H* (0-20) pg/ml B-Natriuretic Peptide (0-100) pg/ml Coagulation 07/26/22 07/26/22 Range/Units 15:13 15:13 PT 12.3 H (9.0-12.0) Seconds APTT 27.5 (21.0-31.0) Seconds B-Natriuretic Peptide 1778 H (0-100) pg/ml CBC 07/26/22 07/27/22 Range/Units 15:13 03:51 WBC 9.78 9.27 (4.8-10.8) K/ul RBC 4.34 L 4.34 L (4.70-6.10) M/uL Hgb 14.5 14.3 (14.0-18.0) g/dl Hct 42.5 42.1 (42.0-52.0) % Plt Count 253 232 (130-400) K/uL Neut # (Auto) 7.99 H (1.40-6.50) K/uL Lymph # (Auto) 0.83 L (1.2-3.4) K/uL Dare # (Auto) 0.80 H (0.11-0.59) K/uL Eos # (Auto) 0.01 (0-0.50) K/uL Baso # (Auto) 0.02 (0-0.2) K/uL Comprehensive Metabolic Panel 07/26/22 07/27/22 Range/Units 15:13 03:51 Sodium 129 L 132 L (136-145) mmol/L Potassium 4.1 3.8 (3.5-5.1) mmol/L Chloride 98 99 (98-107) mmol/L Carbon Dioxide 25 25 (21-32) mmol/L BUN 21 17 (6-23) mg/dl Creatinine 1.07 0.91 (0.6-1.4) mg/dl Glucose 122 H 80 (70-99(Fasting)) mg/dl Calcium 8.5 L 8.3 L (8.6-10.3) mg/dl AST 66 H (13-39) U/L ALT 151 H (7-52) U/L Alkaline Phosphatase 139 H (34-104) U/L Total Protein 6.0 (6.0-8.3) gm/dl Albumin 3.2 L (3.4-5.0) gm/dl Intake and Output 07/26/22 07/27/22 07/27/22 22:59 06:59 14:59 Intake Total 100 / 450 350 / 450 Output Total 150 / 250 100 / 250 Balance -50 / 200 250 / 200 Intake: Oral 100 / 450 350 / 450 Output: Urine 150 / 250 100 / 250 Other: Weight 66.678 kg 67.36 kg Weight Measurement Method Built in [facility] Built in [facility] Diagnostic Findings EKG performed 07/26/2022 1512 and interpret independently: Sinus rhythm with AV sequential pacing. Telemetry reveals similar findings of AV sequential pacing in the 70s, no recurrent ventricular tachycardia yesterday or overnight last night or this morning thus far.
[2022-07-27] MEDS: MIDODRINE HCL 2.5 MG TAB PO SCH ×2 (12:13→16:44)
--- NOTE | 2022-07-27 15:55 | Hospitalist Progress Note ---
Date of Service July 27, 2022 Assessment & Plan (1) Acute on chronic combined systolic (congestive) and diastolic (congestive) heart failure: (2) Nonobstructive cardiomyopathy: Plan: Patient is 82-year-old male with PMH nonobstructive cardiomyopathy, ICD in place VT, s/p ablation 07/21/2022, paroxysmal atrial fibrillation not currently on anticoagulation secondary to history of subdural hematoma and hemoperitoneum, CVA, seizure disorder, chronic transaminitis, HTN, HLD, BPH presented to ER for shortness of breath, orthopnea and BLE edema x 3 days. In ER not hypoxic, BPs soft. BNP: 1778. CXR: Interval progression of the mild interstitial pulmonary edema and small bilateral pleural effusions. Bibasilar densities are nonspecific but favor compressive atelectasis from the pleural effusions. CT Chest: 1. . There are few small scattered patchy groundglass airspace opacities within the aerated lungs most pronounced within the upper lobes. This is new from the prior study. This favors an atypical/viral pneumonitis. Mild congestive change could also have a similar appearance. 2. No significant change in the cardiomegaly and moderate bilateral pleural effusions. A trace pericardial effusion has improved. 3. Bilateral lower lobe densities favor atelectasis from the pleural effusions. These areas are hyperdense. In conjunction with the hyperdense liver this favors amiodarone toxicity. 4. Healing/healed left-sided rib fractures. No acute rib fractures. No pneumothorax. 5. There is a subacute mild superior endplate compression fracture at T12. No associated retropulsion. Family had increased home lasix from 20mg daily to 40 mg daily past couple of days at home with 3lb weight loss and decreased BLE and decreased orthopnea Currently patient comfortable in bed, no hypoxia. Lasix 20 mg IV today a.m given Continue home spironolactone with holding parameters Monitor I's and O's, daily weight, low-sodium diet Incentive spirometry CBC, BMP in a.m Cardiology consulted. Midodrine restarted, gentle diuresis. Monitor BP closely, I &Os. History Echo 06/30/2022: Moderate inferior and inferolateral wall motion abnormality with akinesis of the segments at the basal and mid levels, otherwise moderate to severe global hypokinesis. EF 25-29%, moderate MR, moderate TR, moderate pulmonary hypertension, grade II diastolic dysfunction (3) Ventricular tachycardia: Plan: History V. tach. ICD in place. S/P ablation/ [place] [facility] [place] Recent dc on 07/23/22 with mexiletine discontinued & amiodarone decreased to 200mg daily No reported recent firings of ICD Monitor on telemetry Continue amiodarone 200mg daily (4) Elevated troponin: Plan: High-sensitivity troponin: 555. Patient denies any chest pain. EKG: Paced rhythm Recent ablation for recurrent V. tach on 07/21/2022 Trend troponin History Echo 06/30/2022: Moderate inferior and inferolateral wall motion abnormality with akinesis of the segments at the basal and mid levels, otherwise moderate to severe global hypokinesis. EF 25-29%, moderate MR, moderate TR, moderate pulmonary hypertension, grade II diastolic dysfunction (5) Hyponatremia: Plan: Na: 129. Was 134 on 07/14/2022 Current Na 132 Repeat BMP in a.m. Monitor closely given incr. fluid, and diuresis (6) Paroxysmal atrial fibrillation: Plan: Previously on warfarin. Not currently on anticoagulation secondary to history of subdural hematoma, hemoperitoneum Continue metoprolol succinate with holding parameters (7) Stroke: Plan: Continue atorvastatin (8) Seizure disorder: Plan: Continue Keppra (9) BPH (benign prostatic hyperplasia): Plan: Continue finasteride DVT Prophylaxis Heparin SQ Full Code as per discussion with pt Follows with Cee PARK for routine care Admission and Anticipated Discharge Date Admission Date: July 26, 2022 Subjective Pt seen in follow up of fluid overload, hx of Vtach and heart failure Recently underwent ablation for vtach Currently laying in bed, in no acute distress, reports feeling better Denies chest pain, reports better breathing No fevers chills, no abdominal pain Patient's and son present at the bedside. Review of Systems Review of Systems: All systems reviewed & are unremarkable except as noted in Subjective Physical Exam Physical Exam: General: no distress, WDWN Head: normocephalic, atraumatic Eyes: conjunctiva non-injected, anicteric ENT: +hard of hearing, normal inspection external ears, nose, mucous membranes moist Neck: supple Lungs: no respiratory distress, no wheezing/rhonchi, very faint rales LLL CV: RRR, no murmur, trace pretibial edema, +ICD palpable chest wall without erythema or edema Abd: normal BS, soft, non-tender Ext: moves extremities, minimal pedal/ankle edema (improved) Neuro: A&O x 3, speech fluent, no facial asymmetry, moves extremities Skin: warm, dry Results & Data Results & Data Vital Signs (Past 12 Hours) Vital Signs Temp Pulse Resp BP Pulse Ox O2 Del Method 07/27/22 12:00 36.0 C L 70 18 99/73 L 95 Room Air 07/27/22 08:00 Room Air 07/27/22 07:33 36.3 C L 72 18 100/66 94 Room Air Laboratory Results 07/27/22 07/27/22 07/27/22 Range/Units 04:06 03:51 03:51 WBC 9.27 (4.8-10.8) K/ul RBC 4.34 L (4.70-6.10) M/uL Hgb 14.3 (14.0-18.0) g/dl Hct 42.1 (42.0-52.0) % MCV 97.0 (80.0-100.0) fL MCH 32.9 (25.0-34.0) pg MCHC 34.0 (32.0-36.0) g/dL RDW Std Deviation 54.6 H (36.4-46.3) fL RDW Coeff of Gertrudis 15.3 H (11.5-14.5) % Plt Count 232 (130-400) K/uL MPV 9.2 L (9.4-12.4) fL Immature Gran % (Auto) % Neut % (Auto) % Lymph % (Auto) % [place] % (Auto) % Eos % (Auto) % Baso % (Auto) % Neut # (Auto) (1.40-6.50) K/uL Lymph # (Auto) (1.2-3.4) K/uL [place] # (Auto) (0.11-0.59) K/uL Eos # (Auto) (0-0.50) K/uL Baso # (Auto) (0-0.2) K/uL Immature Gran # (Auto) (0.01-0.20) K/uL PT (9.0-12.0) Seconds INR (0.9-1.1) APTT (21.0-31.0) Seconds PTT Ratio Sodium 132 L (136-145) mmol/L Potassium 3.8 (3.5-5.1) mmol/L Chloride 99 (98-107) mmol/L Carbon Dioxide 25 (21-32) mmol/L Anion Gap 8 (3-11) BUN 17 (6-23) mg/dl Creatinine 0.91 (0.6-1.4) mg/dl Est Cr Clr Drug Dosing 59.0 ml/min Est GFR ( Amer) 90.6 ml/min Est GFR (Non-Af Amer) 78.2 ml/min BUN/Creatinine Ratio 18.7 (10-20) Glucose 80 (70-99(Fasting)) mg/dl Calcium 8.3 L (8.6-10.3) mg/dl Magnesium 1.8 (1.7-2.4) mg/dl Total Bilirubin (0.2-1.0) mg/dl AST (13-39) U/L ALT (7-52) U/L Alkaline Phosphatase (34-104) U/L Troponin I High Sens (0-20) pg/ml B-Natriuretic Peptide (0-100) pg/ml Total Protein (6.0-8.3) gm/dl Albumin (3.4-5.0) gm/dl Globulin (2.5-4.0) gm/dl Albumin/Globulin Ratio (0.9-2) Urine Color Dark Yellow Urine Appearance Clear (Clear) Urine pH 5.5 (4.5-7.5) Ur Specific [place] 1.013 (1.000-1.030) Urine Protein Negative (Negative) Urine Glucose (UA) Negative (Negative) Urine Ketones Negative (Negative) Urine Blood Negative (Negative) Urine Nitrite Negative (Negative) Urine Bilirubin Negative (Negative) Urine Urobilinogen Negative (Negative) Ur Leukocyte Esterase Negative (Negative) SARS-CoV-2, RNA, NAAT (NEGATIVE) 07/27/22 07/26/22 07/26/22 Range/Units 03:51 22:23 16:16 WBC (4.8-10.8) K/ul RBC (4.70-6.10) M/uL Hgb (14.0-18.0) g/dl Hct (42.0-52.0) % MCV (80.0-100.0) fL MCH (25.0-34.0) pg MCHC (32.0-36.0) g/dL RDW Std Deviation (36.4-46.3) fL RDW Coeff of Gertrudis (11.5-14.5) % Plt Count (130-400) K/uL MPV (9.4-12.4) fL Immature Gran % (Auto) % Neut % (Auto) % Lymph % (Auto) % [place] % (Auto) % Eos % (Auto) % Baso % (Auto) % Neut # (Auto) (1.40-6.50) K/uL Lymph # (Auto) (1.2-3.4) K/uL [place] # (Auto) (0.11-0.59) K/uL Eos # (Auto) (0-0.50) K/uL Baso # (Auto) (0-0.2) K/uL Immature Gran # (Auto) (0.01-0.20) K/uL PT (9.0-12.0) Seconds INR (0.9-1.1) APTT (21.0-31.0) Seconds PTT Ratio Sodium (136-145) mmol/L Potassium (3.5-5.1) mmol/L Chloride (98-107) mmol/L Carbon Dioxide (21-32) mmol/L Anion Gap (3-11) BUN (6-23) mg/dl Creatinine (0.6-1.4) mg/dl Est Cr Clr Drug Dosing ml/min Est GFR ( Amer) ml/min Est GFR (Non-Af Amer) ml/min BUN/Creatinine Ratio (10-20) Glucose (70-99(Fasting)) mg/dl Calcium (8.6-10.3) mg/dl Magnesium (1.7-2.4) mg/dl Total Bilirubin (0.2-1.0) mg/dl AST (13-39) U/L ALT (7-52) U/L Alkaline Phosphatase (34-104) U/L Troponin I High Sens 503.5 H* 488.9 H* (0-20) pg/ml B-Natriuretic Peptide (0-100) pg/ml Total Protein (6.0-8.3) gm/dl Albumin (3.4-5.0) gm/dl Globulin (2.5-4.0) gm/dl Albumin/Globulin Ratio (0.9-2) Urine Color Urine Appearance (Clear) Urine pH (4.5-7.5) Ur Specific [place] (1.000-1.030) Urine Protein (Negative) Urine Glucose (UA) (Negative) Urine Ketones (Negative) Urine Blood (Negative) Urine Nitrite (Negative) Urine Bilirubin (Negative) Urine Urobilinogen (Negative) Ur Leukocyte Esterase (Negative) SARS-CoV-2, RNA, NAAT NEGATIVE (NEGATIVE) 07/26/22 07/26/22 07/26/22 Range/Units 15:13 15:13 15:13 WBC (4.8-10.8) K/ul RBC (4.70-6.10) M/uL Hgb (14.0-18.0) g/dl Hct (42.0-52.0) % MCV (80.0-100.0) fL MCH (25.0-34.0) pg MCHC (32.0-36.0) g/dL RDW Std Deviation (36.4-46.3) fL RDW Coeff of Gertrudis (11.5-14.5) % Plt Count (130-400) K/uL MPV (9.4-12.4) fL Immature Gran % (Auto) % Neut % (Auto) % Lymph % (Auto) % [place] % (Auto) % Eos % (Auto) % Baso % (Auto) % Neut # (Auto) (1.40-6.50) K/uL Lymph # (Auto) (1.2-3.4) K/uL [place] # (Auto) (0.11-0.59) K/uL Eos # (Auto) (0-0.50) K/uL Baso # (Auto) (0-0.2) K/uL Immature Gran # (Auto) (0.01-0.20) K/uL PT 12.3 H (9.0-12.0) Seconds INR 1.1 (0.9-1.1) APTT 27.5 (21.0-31.0) Seconds PTT Ratio 1.0 Sodium 129 L (136-145) mmol/L Potassium 4.1 (3.5-5.1) mmol/L Chloride 98 (98-107) mmol/L Carbon Dioxide 25 (21-32) mmol/L Anion Gap 6 (3-11) BUN 21 (6-23) mg/dl Creatinine 1.07 (0.6-1.4) mg/dl Est Cr Clr Drug Dosing 51.5 ml/min Est GFR ( Amer) 74.5 ml/min Est GFR (Non-Af Amer) 64.3 ml/min BUN/Creatinine Ratio 19.6 (10-20) Glucose 122 H (70-99(Fasting)) mg/dl Calcium 8.5 L (8.6-10.3) mg/dl Magnesium 1.8 (1.7-2.4) mg/dl Total Bilirubin 1.8 H (0.2-1.0) mg/dl AST 66 H (13-39) U/L ALT 151 H (7-52) U/L Alkaline Phosphatase 139 H (34-104) U/L Troponin I High Sens 555.5 H* (0-20) pg/ml B-Natriuretic Peptide 1778 H (0-100) pg/ml Total Protein 6.0 (6.0-8.3) gm/dl Albumin 3.2 L (3.4-5.0) gm/dl Globulin 2.8 (2.5-4.0) gm/dl Albumin/Globulin Ratio 1.1 (0.9-2) Urine Color Urine Appearance (Clear) Urine pH (4.5-7.5) Ur Specific [place] (1.000-1.030) Urine Protein (Negative) Urine Glucose (UA) (Negative) Urine Ketones (Negative) Urine Blood (Negative) Urine Nitrite (Negative) Urine Bilirubin (Negative) Urine Urobilinogen (Negative) Ur Leukocyte Esterase (Negative) SARS-CoV-2, RNA, NAAT (NEGATIVE) 07/26/22 Range/Units 15:13 WBC 9.78 (4.8-10.8) K/ul RBC 4.34 L (4.70-6.10) M/uL Hgb 14.5 (14.0-18.0) g/dl Hct 42.5 (42.0-52.0) % MCV 97.9 (80.0-100.0) fL MCH 33.4 (25.0-34.0) pg MCHC 34.1 (32.0-36.0) g/dL RDW Std Deviation 56.2 H (36.4-46.3) fL RDW Coeff of Gertrudis 15.6 H (11.5-14.5) % Plt Count 253 (130-400) K/uL MPV 9.5 (9.4-12.4) fL Immature Gran % (Auto) 1.3 % Neut % (Auto) 81.7 % Lymph % (Auto) 8.5 % [place] % (Auto) 8.2 % Eos % (Auto) 0.1 % Baso % (Auto) 0.2 % Neut # (Auto) 7.99 H (1.40-6.50) K/uL Lymph # (Auto) 0.83 L (1.2-3.4) K/uL [place] # (Auto) 0.80 H (0.11-0.59) K/uL Eos # (Auto) 0.01 (0-0.50) K/uL Baso # (Auto) 0.02 (0-0.2) K/uL Immature Gran # (Auto) 0.13 (0.01-0.20) K/uL PT (9.0-12.0) Seconds INR (0.9-1.1) APTT (21.0-31.0) Seconds PTT Ratio Sodium (136-145) mmol/L Potassium (3.5-5.1) mmol/L Chloride (98-107) mmol/L Carbon Dioxide (21-32) mmol/L Anion Gap (3-11) BUN (6-23) mg/dl Creatinine (0.6-1.4) mg/dl Est Cr Clr Drug Dosing ml/min Est GFR ( Amer) ml/min Est GFR (Non-Af Amer) ml/min BUN/Creatinine Ratio (10-20) Glucose (70-99(Fasting)) mg/dl Calcium (8.6-10.3) mg/dl Magnesium (1.7-2.4) mg/dl Total Bilirubin (0.2-1.0) mg/dl AST (13-39) U/L ALT (7-52) U/L Alkaline Phosphatase (34-104) U/L Troponin I High Sens (0-20) pg/ml B-Natriuretic Peptide (0-100) pg/ml Total Protein (6.0-8.3) gm/dl Albumin (3.4-5.0) gm/dl Globulin (2.5-4.0) gm/dl Albumin/Globulin Ratio (0.9-2) Urine Color Urine Appearance (Clear) Urine pH (4.5-7.5) Ur Specific [place] (1.000-1.030) Urine Protein (Negative) Urine Glucose (UA) (Negative) Urine Ketones (Negative) Urine Blood (Negative) Urine Nitrite (Negative) Urine Bilirubin (Negative) Urine Urobilinogen (Negative) Ur Leukocyte Esterase (Negative) SARS-CoV-2, RNA, NAAT (NEGATIVE) Medications Administered Current Inpatient Medications Acetaminophen (Acetaminophen 325 Mg Tab) 650 mg PO Q4H PRN PRN Reason: Pain or Fever Stop: 08/25/22 21:31 Amiodarone HCl (Amiodarone 200 Mg Tab) 200 mg PO DAILY XUAN Stop: 08/26/22 08:59 Last Admin: 07/27/22 08:09 Dose: 200 mg Atorvastatin Calcium (Atorvastatin 40 Mg Tab) 40 mg PO HS XUAN Stop: 08/25/22 21:31 Last Admin: 07/26/22 22:14 Dose: 40 mg Escitalopram Oxalate (Escitalopram Oxalate 10 Mg Tab) 10 mg PO HS XUAN Stop: 08/25/22 21:31 Last Admin: 07/26/22 22:14 Dose: 10 mg Finasteride (Finasteride 5 Mg Tab) 5 mg PO QAM XUAN Stop: 08/26/22 08:59 Last Admin: 07/27/22 08:10 Dose: 5 mg Furosemide (Furosemide Inj 20 Mg/2 Ml Vial) 20 mg IV DAILY XUAN Stop: 07/28/22 08:59 Last Admin: 07/27/22 09:59 Dose: 20 mg Heparin Sodium (Porcine) (Heparin Sod 5,000 Unit/0.5 Ml Vial) 5,000 units SQ Q12 XUAN Stop: 08/25/22 21:31 Last Admin: 07/27/22 09:59 Dose: 5,000 units Levetiracetam (Levetiracetam 500 Mg Tab) 500 mg PO BID XUAN Stop: 08/25/22 21:31 Last Admin: 07/27/22 08:10 Dose: 500 mg Melatonin (Melatonin 3 Mg Tab) 3 mg PO HS XUAN Stop: 08/25/22 21:31 Last Admin: 07/26/22 22:14 Dose: 3 mg Metoprolol Succinate (Metoprolol Succ 25mg Ext Rel Tab) 75 mg PO BID [facility] Stop: 08/25/22 21:31 Last Admin: 07/27/22 08:10 Dose: 75 mg Midodrine (Midodrine Hcl 2.5 Mg Tab) 5 mg PO TID@0800,1200,1700 [facility] Stop: 08/26/22 11:59 Last Admin: 07/27/22 12:13 Dose: 5 mg Polyethylene Glycol (Polyethylene (Miralax) 17 Gm Pack) 17 gm PO DAILY PRN PRN Reason: Constipation Stop: 08/25/22 21:31 Spironolactone (Spironolactone 12.5 Mg Tab) 12.5 mg PO DAILY [facility] Stop: 08/26/22 08:59 Last Admin: 07/27/22 08:10 Dose: 12.5 mg
[2022-07-27] MEDS: MELATONIN 3 MG TAB PO SCH (20:45)
[2022-07-27] MEDS: ESCITALOPRAM OXALATE 10 MG TAB PO SCH (20:45)
[2022-07-27] MEDS: ATORVASTATIN 40 MG TAB PO SCH (20:46)
[2022-07-28 06:38] LABS: Albumin Globulin Ratio 1.3 (0.9-2); Albumin Level 2.9 gm/dl (3.4-5.0); BUN Creatinine Ratio 18.6 (10-20); Bilirubin,Total 2.1 mg/dl (0.2-1.0); Calcium 8.1 mg/dl (8.6-10.3); Creatinine Clr Calc Pharmacy 55.9 ml/min; Est GFR (African American) 83.9 ml/min; Est GFR (Non-African American) 72.4 ml/min; Globulin 2.3 gm/dl (2.5-4.0); Magnesium 1.7 mg/dl (1.7-2.4); Phosphorus 2.7 mg/dl (2.5-4.9); Potassium 3.8 mmol/L (3.5-5.1); Total Protein 5.2 gm/dl (6.0-8.3)
--- NOTE | 2022-07-28 08:00 | Hospitalist Progress Note ---
Date of Service July 28, 2022 Assessment & Plan (1) Acute on chronic combined systolic (congestive) and diastolic (congestive) heart failure: (2) Nonobstructive cardiomyopathy: Plan: Patient is 82-year-old male with PMH nonobstructive cardiomyopathy, ICD in place VT, s/p ablation 07/21/2022, paroxysmal atrial fibrillation not currently on anticoagulation secondary to history of subdural hematoma and hemoperitoneum, CVA, seizure disorder, chronic transaminitis, HTN, HLD, BPH presented to ER for shortness of breath, orthopnea and BLE edema x 3 days. In ER not hypoxic, BPs soft. BNP: 1778. CXR: Interval progression of the mild interstitial pulmonary edema and small bilateral pleural effusions. Bibasilar densities are nonspecific but favor compressive atelectasis from the pleural effusions. CT Chest: 1. . There are few small scattered patchy groundglass airspace opacities within the aerated lungs most pronounced within the upper lobes. This is new from the prior study. This favors an atypical/viral pneumonitis. Mild congestive change could also have a similar appearance. 2. No significant change in the cardiomegaly and moderate bilateral pleural effusions. A trace pericardial effusion has improved. 3. Bilateral lower lobe densities favor atelectasis from the pleural effusions. These areas are hyperdense. In conjunction with the hyperdense liver this favors amiodarone toxicity. 4. Healing/healed left-sided rib fractures. No acute rib fractures. No pneumothorax. 5. There is a subacute mild superior endplate compression fracture at T12. No associated retropulsion. Family had increased home lasix from 20mg daily to 40 mg daily past couple of days at home with 3lb weight loss and decreased BLE and decreased orthopnea Currently patient comfortable in bed, no hypoxia. Lasix 20 mg IV yesterday and today Continue home spironolactone with holding parameters Monitor I's and O's, daily weight, low-sodium diet Incentive spirometry CBC, BMP in a.m Cardiology consulted. Midodrine restarted, gentle diuresis. Monitor BP closely, I &Os. History Echo 06/30/2022: Moderate inferior and inferolateral wall motion abnormality with akinesis of the segments at the basal and mid levels, otherwise moderate to severe global hypokinesis. EF 25-29%, moderate MR, moderate TR, moderate pulmonary hypertension, grade II diastolic dysfunction (3) Ventricular tachycardia: Plan: History V. tach. ICD in place. S/P ablation/ [place] [facility] [place] Recent dc on 07/23/22 with mexiletine discontinued & amiodarone decreased to 20 0mg daily No reported recent firings of ICD Monitor on telemetry Continue amiodarone 200mg daily (4) Elevated troponin: Plan: High-sensitivity troponin: 555. Patient denies any chest pain. EKG: Paced rhythm Recent ablation for recurrent V. tach on 07/21/2022 Trend troponin History Echo 06/30/2022: Moderate inferior and inferolateral wall motion abnormality with akinesis of the segments at the basal and mid levels, otherwise moderate to severe global hypokinesis. EF 25-29%, moderate MR, moderate TR, moderate pulmonary hypertension, grade II diastolic dysfunction (5) Hyponatremia: Plan: Na: 129. Was 134 on 07/14/2022 Current Na 132 Repeat BMP in a.m. Monitor closely given incr. fluid, and diuresis (6) Paroxysmal atrial fibrillation: Plan: Previously on warfarin. Not currently on anticoagulation secondary to history of subdural hematoma, hemoperitoneum Continue metoprolol succinate with holding parameters (7) Stroke: Plan: Continue atorvastatin (8) Seizure disorder: Plan: Continue Keppra (9) BPH (benign prostatic hyperplasia): Plan: Continue finasteride DVT Prophylaxis Heparin SQ Full Code as per discussion with pt Follows with Cee PARK for routine care Admission and Anticipated Discharge Date Admission Date: July 26, 2022 Subjective Pt seen in follow up of fluid overload, hx of Vtach and heart failure Recently underwent ablation for vtach Currently laying in bed, in no acute distress, reports feeling better Denies chest pain, resting comfortably No fevers chills, no abdominal pain Patient's daughter present at the bedside. Review of Systems Review of Systems: All systems reviewed & are unremarkable except as noted in Subjective Physical Exam Physical Exam: General: no distress, WDWN Head: normocephalic, atraumatic Eyes: conjunctiva non-injected, anicteric ENT: +hard of hearing, normal inspection external ears, nose, mucous membranes moist Neck: supple Lungs: no respiratory distress, no wheezing/rhonchi CV: RRR, no murmur, trace pretibial edema, +ICD palpable chest wall without erythema or edema Abd: normal BS, soft, non-tender Ext: moves extremities, minimal pedal/ankle edema (improved) Neuro: A&O x 3, speech fluent, no facial asymmetry, moves extremities Skin: warm, dry Results & Data Results & Data Vital Signs (Past 12 Hours) Vital Signs Temp Pulse Resp BP Pulse Ox O2 Del Method 07/28/22 04:00 36.5 C 71 18 105/75 94 Room Air 07/27/22 23:14 36.8 C 70 19 105/75 92 Room Air 07/27/22 20:40 Room Air Laboratory Results 07/28/22 Range/Units 05:50 Sodium 131 L (136-145) mmol/L Potassium 3.8 (3.5-5.1) mmol/L Chloride 99 (98-107) mmol/L Carbon Dioxide 25 (21-32) mmol/L Anion Gap 7 (3-11) BUN 18 (6-23) mg/dl Creatinine 0.97 (0.6-1.4) mg/dl Est Cr Clr Drug Dosing 55.9 ml/min Est GFR ( Amer) 83.9 ml/min Est GFR (Non-Af Amer) 72.4 ml/min BUN/Creatinine Ratio 18.6 (10-20) Glucose 81 (70-99(Fasting)) mg/dl Calcium 8.1 L (8.6-10.3) mg/dl Phosphorus 2.7 (2.5-4.9) mg/dl Magnesium 1.7 (1.7-2.4) mg/dl Total Bilirubin 2.1 H (0.2-1.0) mg/dl AST 54 H (13-39) U/L ALT 113 H (7-52) U/L Alkaline Phosphatase 114 H (34-104) U/L Total Protein 5.2 L (6.0-8.3) gm/dl Albumin 2.9 L (3.4-5.0) gm/dl Globulin 2.3 L (2.5-4.0) gm/dl Albumin/Globulin Ratio 1.3 (0.9-2) Medications Administered Current Inpatient Medications Acetaminophen (Acetaminophen 325 Mg Tab) 650 mg PO Q4H PRN PRN Reason: Pain or Fever Stop: 08/25/22 21:31 Amiodarone HCl (Amiodarone 200 Mg Tab) 200 mg PO DAILY XUAN Stop: 08/26/22 08:59 Last Admin: 07/27/22 08:09 Dose: 200 mg Atorvastatin Calcium (Atorvastatin 40 Mg Tab) 40 mg PO HS XUAN Stop: 08/25/22 21:31 Last Admin: 07/27/22 20:46 Dose: 40 mg Escitalopram Oxalate (Escitalopram Oxalate 10 Mg Tab) 10 mg PO HS XUAN Stop: 08/25/22 21:31 Last Admin: 07/27/22 20:45 Dose: 10 mg Finasteride (Finasteride 5 Mg Tab) 5 mg PO QAM [facility]UAN Stop: 08/26/22 08:59 Last Admin: 07/27/22 08:10 Dose: 5 mg Furosemide (Furosemide Inj 20 Mg/2 Ml Vial) 20 mg IV DAILY [facility]AN Stop: 07/28/22 08:59 Last Admin: 07/27/22 09:59 Dose: 20 mg Heparin Sodium (Porcine) (Heparin Sod 5,000 Unit/0.5 Ml Vial) 5,000 units SQ Q12 [facility]AN Stop: 08/25/22 21:31 Last Admin: 07/27/22 20:46 Dose: 5,000 units Levetiracetam (Levetiracetam 500 Mg Tab) 500 mg PO BID [facility]UAN Stop: 08/25/22 21:31 Last Admin: 07/27/22 20:45 Dose: 500 mg Melatonin (Melatonin 3 Mg Tab) 3 mg PO HS [facility] Stop: 08/25/22 21:31 Last Admin: 07/27/22 20:45 Dose: 3 mg Metoprolol Succinate (Metoprolol Succ 25mg Ext Rel Tab) 75 mg PO BID [facility]UAN Stop: 08/25/22 21:31 Last Admin: 07/27/22 20:45 Dose: 75 mg Midodrine (Midodrine Hcl 2.5 Mg Tab) 5 mg PO TID@0800,1200,1700 [facility] Stop: 08/26/22 11:59 Last Admin: 07/27/22 16:44 Dose: 5 mg Polyethylene Glycol (Polyethylene (Miralax) 17 Gm Pack) 17 gm PO DAILY PRN PRN Reason: Constipation Stop: 08/25/22 21:31 Spironolactone (Spironolactone 12.5 Mg Tab) 12.5 mg PO DAILY [facility]AN Stop: 08/26/22 08:59 Last Admin: 07/27/22 08:10 Dose: 12.5 mg
[2022-07-28] MEDS: METOPROLOL SUCC 25MG EXT REL TAB PO SCH ×2 (08:51→20:33)
[2022-07-28] MEDS: HEPARIN SOD 5,000 UNIT/0.5 ML VIAL SQ SCH ×2 (08:51→20:46)
[2022-07-28] MEDS: AMIODARONE 200 MG TAB PO SCH (08:51)
[2022-07-28] MEDS: FINASTERIDE 5 MG TAB PO SCH (08:52)
[2022-07-28] MEDS: MIDODRINE HCL 2.5 MG TAB PO SCH ×3 (08:52→17:29)
[2022-07-28] MEDS: levETIRAcetam 500 MG TAB PO SCH ×2 (08:52→20:32)
[2022-07-28] MEDS: SPIRONOLACTONE 12.5 MG TAB PO SCH (08:52)
--- NOTE | 2022-07-28 10:38 | Electrocardiogram Report ---
Test Reason : Blood Pressure : / mmHG Vent. Rate : 075 BPM Atrial Rate : 075 BPM P-R Int : 184 ms QRS Dur : 168 ms QT Int : 396 ms P-R-T Axes : 038 042 260 degrees QTc Int : 442 ms AV dual-paced rhythm Abnormal ECG When compared with ECG of 11-JUL-2022 09:57, Vent. rate has decreased BY 13 BPM Confirmed by Aquiles Claros ([id number]) on 07/28/2022 10:38:21 AM Referred By: ED Confirmed By:Aquiles Claros
[2022-07-28] MEDS ORDERED: FUROSEMIDE INJ 20 MG/2 ML VIAL IV ONE (10:46)
--- NOTE | 2022-07-28 10:53 | Cardiology Progress Note ---
Date of Service July 28, 2022 Assessment & Plan (1) Acute on chronic HFrEF (heart failure with reduced ejection fraction): (2) Ventricular tachycardia: Plan: Elevated LFTs likely due to congestive hepatopathy, or perhaps amiodarone. Given life threatening recurrent VT , benefit of ongoing amiodarone > risks, - dose already reduced to 200 mg daily. Proceed with furosemide 20 mg IV x 1. Monitor BP, kidney function and electrolytes. Rangel catheter to remain in place for now. 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 Pt not on DANISH / ARB, entresto or SGLT2 inhibitor agent due to low BP. Midodrine restarted on 07/27 for BP support. Continue SQ heparin for DVT prophylaxis. Admission and Anticipated Discharge Date Admission Date: July 26, 2022 Subjective Patient seen in follow up. Daughter, Jasmyne, at the bedside. Pt resting comfortably . Rangel catheter placed the afternoon of 07/27. [place] less SOB this am. Telemetry reveals SR with AV pacing. No Vt. Physical Exam Constitutional: + cachectic Respiratory: no respiratory distress and does not use accessory muscles Auscultation: + diminished lung sounds (Decreased breath sounds at the bases bilaterally); no crackles and no rales Cardiovascular: Rate/Rhythm: regular rate and regular rhythm Heart Sounds: normal S1 and normal S2; no murmur Extremities: + edema (Trace bilateral lower extremity edema, pedal edema) Gastrointestinal (Abdomen): normal bowel sounds, soft, nontender, no hep atosplenomegaly Neurologic: PERRL, EOMI, accommodation nl, no face palsy, no dysarthria Results & Data Vital Signs (Past 12 Hours) Vital Signs Temp Pulse Resp BP Pulse Ox O2 Del Method 07/28/22 08:09 36.7 C 71 18 106/70 95 Room Air 07/28/22 04:00 36.5 C 71 18 105/75 94 Room Air 07/27/22 23:14 36.8 C 70 19 105/75 92 Room Air Laboratory Results Cardiac Enzymes 07/28/22 Range/Units 05:50 AST 54 H (13-39) U/L Comprehensive Metabolic Panel 07/28/22 Range/Units 05:50 Sodium 131 L (136-145) mmol/L Potassium 3.8 (3.5-5.1) mmol/L Chloride 99 (98-107) mmol/L Carbon Dioxide 25 (21-32) mmol/L BUN 18 (6-23) mg/dl Creatinine 0.97 (0.6-1.4) mg/dl Glucose 81 (70-99(Fasting)) mg/dl Calcium 8.1 L (8.6-10.3) mg/dl AST 54 H (13-39) U/L ALT 113 H (7-52) U/L Alkaline Phosphatase 114 H (34-104) U/L Total Protein 5.2 L (6.0-8.3) gm/dl Albumin 2.9 L (3.4-5.0) gm/dl Intake and Output 07/27/22 07/28/22 07/28/22 22:59 06:59 14:59 Intake Total 240 / 480 Output Total 500 / 700 100 / 700 Balance -260 / -220 -100 / -220 Intake: Oral 240 / 480 Output: Urine 100 / 200 Urine Amount (Catheter) 400 / 500 100 / 500 External 400 / 500 100 / 500 Other: Other Intake Source Sips # Unmeasured Voids 1 Weight 67.36 kg Weight Measurement Method Built in [facility]
[2022-07-28] MEDS: MAGNESIUM OXIDE 400 MG TAB PO SCH (14:10)
[2022-07-28] MEDS: ESCITALOPRAM OXALATE 10 MG TAB PO SCH (20:32)
[2022-07-28] MEDS: ATORVASTATIN 40 MG TAB PO SCH (20:33)
[2022-07-28] MEDS: MELATONIN 3 MG TAB PO SCH (20:33)
[2022-07-29 06:38] LABS: Albumin Globulin Ratio 1.2 (0.9-2); Albumin Level 2.7 gm/dl (3.4-5.0); BUN Creatinine Ratio 17.9 (10-20); Creatinine Clr Calc Pharmacy 57.5 ml/min; Est GFR (African American) 86.1 ml/min; Est GFR (Non-African American) 74.2 ml/min; Globulin 2.3 gm/dl (2.5-4.0); Magnesium 1.8 mg/dl (1.7-2.4); Phosphorus 2.4 mg/dl (2.5-4.9); Potassium 3.7 mmol/L (3.5-5.1)
[2022-07-29] MEDS: HEPARIN SOD 5,000 UNIT/0.5 ML VIAL SQ SCH ×2 (08:17→20:16)
[2022-07-29] MEDS: levETIRAcetam 500 MG TAB PO SCH ×2 (08:18→20:17)
[2022-07-29] MEDS: METOPROLOL SUCC 25MG EXT REL TAB PO SCH ×2 (08:18→20:16)
[2022-07-29] MEDS: AMIODARONE 200 MG TAB PO SCH (08:18)
[2022-07-29] MEDS: MAGNESIUM OXIDE 400 MG TAB PO SCH ×2 (08:19→20:17)
[2022-07-29] MEDS: FINASTERIDE 5 MG TAB PO SCH (08:19)
[2022-07-29] MEDS: MIDODRINE HCL 2.5 MG TAB PO SCH ×3 (08:19→16:49)
[2022-07-29] MEDS: SPIRONOLACTONE 12.5 MG TAB PO SCH (08:19)
[2022-07-29] MEDS ORDERED: POTASSIUM CHLORIDE CRTAB 20 MEQ TABCR PO STA (10:33)
--- NOTE | 2022-07-29 10:35 | Hospitalist Progress Note ---
Date of Service July 29, 2022 Assessment & Plan (1) Acute on chronic combined systolic (congestive) and diastolic (congestive) heart failure: (2) Nonobstructive cardiomyopathy: Plan: Patient is 82-year-old male with PMH nonobstructive cardiomyopathy, ICD in place VT, s/p ablation 07/21/2022, paroxysmal atrial fibrillation not currently on anticoagulation secondary to history of subdural hematoma and hemoperitoneum, CVA, seizure disorder, chronic transaminitis, HTN, HLD, BPH presented to ER for shortness of breath, orthopnea and BLE edema x 3 days. In ER not hypoxic, BPs soft. BNP: 1778. CXR: Interval progression of the mild interstitial pulmonary edema and small bilateral pleural effusions. Bibasilar densities are nonspecific but favor compressive atelectasis from the pleural effusions. CT Chest: 1. . There are few small scattered patchy groundglass airspace opacities within the aerated lungs most pronounced within the upper lobes. This is new from the prior study. This favors an atypical/viral pneumonitis. Mild congestive change could also have a similar appearance. 2. No significant change in the cardiomegaly and moderate bilateral pleural effusions. A trace pericardial effusion has improved. 3. Bilateral lower lobe densities favor atelectasis from the pleural effusions. These areas are hyperdense. In conjunction with the hyperdense liver this favors amiodarone toxicity. 4. Healing/healed left-sided rib fractures. No acute rib fractures. No pneumothorax. 5. There is a subacute mild superior endplate compression fracture at T12. No associated retropulsion. Family had increased home lasix from 20mg daily to 40 mg daily past couple of days at home with 3lb weight loss and decreased BLE and decreased orthopnea Currently patient comfortable in bed, no hypoxia. Lasix 20 mg IV given daily since admission Continue home spironolactone with holding parameters Monitor I's and O's, daily weight, low-sodium diet Incentive spirometry CBC, BMP in a.m Cardiology consulted. Midodrine restarted on admission. gentle diuresis. Monitor BP closely, I &Os. History Echo 06/30/2022: Moderate inferior and inferolateral wall motion abnormality with akinesis of the segments at the basal and mid levels, otherwise moderate to severe global hypokinesis. EF 25-29%, moderate MR, moderate TR, moderate pulmonary hypertension, grade II diastolic dysfunction (3) Ventricular tachycardia: Plan: History V. tach. ICD in place. S/P ablation/ at [facility] Recent dc on 07/23/22 with mexiletine discontinued & amiodarone decreased to 200mg daily Monitor on telemetry 07/29 6 beat nsvt noted today Continue amiodarone 200mg daily Cardiology following closely (4) Elevated troponin: Plan: High-sensitivity troponin: 555. Patient denies any chest pain. EKG: Paced rhythm Recent ablation for recurrent V. tach on 07/21/2022 Trend troponin History Echo 06/30/2022: Moderate inferior and inferolateral wall motion abnormality with akinesis of the segments at the basal and mid levels, otherwise moderate to severe global hypokinesis. EF 25-29%, moderate MR, moderate TR, moderate pulmonary hypertension, grade II diastolic dysfunction (5) Hyponatremia: Plan: Na: 129. Was 134 on 07/14/2022 Current Na 131 Repeat BMP in a.m. Monitor closely given incr. fluid, and diuresis (6) Paroxysmal atrial fibrillation: Plan: Previously on warfarin. Not currently on anticoagulation secondary to history of subdural hematoma, hemoperitoneum Continue metoprolol succinate with holding parameters (7) Stroke: Plan: Continue atorvastatin (8) Seizure disorder: Plan: Continue Keppra (9) BPH (benign prostatic hyperplasia): Plan: Continue finasteride DVT Prophylaxis Heparin SQ Full Code as per discussion with pt Follows with Cee PARK for routine care Admission and Anticipated Discharge Date Admission Date: July 26, 2022 Subjective Pt seen in follow up of fluid overload, hx of Vtach and heart failure Recently underwent ablation for vtach Had 6 beat NSVT earlier today Currently sitting up in bed, in no acute distress, on RA Denies chest pain No fevers chills, no abdominal pain Cardiology following closely Patient's daughter present at the bedside. Review of Systems Review of Systems: All systems reviewed & are unremarkable except as noted in Subjective Physical Exam Physical Exam: General: no distress, WDWN Head: normocephalic, atraumatic Eyes: conjunctiva non-injected, anicteric ENT: +hard of hearing, normal inspection external ears, nose, mucous membranes moist Neck: supple Lungs: no respiratory distress, no wheezing/rhonchi CV: RRR, no murmur, trace pretibial edema, +ICD palpable chest wall without erythema or edema Abd: normal BS, soft, non-tender Ext: moves extremities, minimal pedal/ankle edema (improved) Neuro: A&O x 3, speech fluent, no facial asymmetry, moves extremities Skin: warm, dry Results & Data Results & Data Vital Signs (Past 12 Hours) Vital Signs Temp Pulse Resp BP Pulse Ox O2 Del Method 07/29/22 07:58 36.7 C 72 18 105/72 91 Room Air 07/29/22 04:36 36.8 C 75 17 101/66 94 Room Air 07/28/22 23:40 36.6 C 70 18 95/66 L 93 Room Air Laboratory Results 07/29/22 Range/Units 05:53 Sodium 131 L (136-145) mmol/L Potassium 3.7 (3.5-5.1) mmol/L Chloride 99 (98-107) mmol/L Carbon Dioxide 26 (21-32) mmol/L Anion Gap 6 (3-11) BUN 17 (6-23) mg/dl Creatinine 0.95 (0.6-1.4) mg/dl Est Cr Clr Drug Dosing 57.5 ml/min Est GFR ( Amer) 86.1 ml/min Est GFR (Non-Af Amer) 74.2 ml/min BUN/Creatinine Ratio 17.9 (10-20) Glucose 83 (70-99(Fasting)) mg/dl Calcium 8.0 L (8.6-10.3) mg/dl Phosphorus 2.4 L (2.5-4.9) mg/dl Magnesium 1.8 (1.7-2.4) mg/dl Total Bilirubin 2.0 H (0.2-1.0) mg/dl AST 50 H (13-39) U/L ALT 96 H (7-52) U/L Alkaline Phosphatase 105 H (34-104) U/L Total Protein 5.0 L (6.0-8.3) gm/dl Albumin 2.7 L (3.4-5.0) gm/dl Globulin 2.3 L (2.5-4.0) gm/dl Albumin/Globulin Ratio 1.2 (0.9-2) Medications Administered Current Inpatient Medications Acetaminophen (Acetaminophen 325 Mg Tab) 650 mg PO Q4H PRN PRN Reason: Pain or Fever Stop: 08/25/22 21:31 Amiodarone HCl (Amiodarone 200 Mg Tab) 200 mg PO DAILY XUAN Stop: 08/26/22 08:59 Last Admin: 07/29/22 08:18 Dose: 200 mg Atorvastatin Calcium (Atorvastatin 40 Mg Tab) 40 mg PO HS [facility] Stop: 08/25/22 21:31 Last Admin: 07/28/22 20:33 Dose: 40 mg Escitalopram Oxalate (Escitalopram Oxalate 10 Mg Tab) 10 mg PO HS XUAN Stop: 08/25/22 21:31 Last Admin: 07/28/22 20:32 Dose: 10 mg Finasteride (Finasteride 5 Mg Tab) 5 mg PO QAM XUAN Stop: 08/26/22 08:59 Last Admin: 07/29/22 08:19 Dose: 5 mg Heparin Sodium (Porcine) (Heparin Sod 5,000 Unit/0.5 Ml Vial) 5,000 units SQ Q12 XUAN Stop: 08/25/22 21:31 Last Admin: 07/29/22 08:17 Dose: 5,000 units Levetiracetam (Levetiracetam 500 Mg Tab) 500 mg PO BID [facility] Stop: 08/25/22 21:31 Last Admin: 07/29/22 08:18 Dose: 500 mg Magnesium Oxide (Magnesium Oxide 400 Mg Tab) 400 mg PO BID [facility] Stop: 08/28/22 20:59 Melatonin (Melatonin 3 Mg Tab) 3 mg PO HS [facility] Stop: 08/25/22 21:31 Last Admin: 07/28/22 20:33 Dose: 3 mg Metoprolol Succinate (Metoprolol Succ 25mg Ext Rel Tab) 75 mg PO BID [facility] Stop: 08/25/22 21:31 Last Admin: 07/29/22 08:18 Dose: 75 mg Midodrine (Midodrine Hcl 2.5 Mg Tab) 5 mg PO TID@0800,1200,1700 [facility] Stop: 08/26/22 11:59 Last Admin: 07/29/22 12:22 Dose: 5 mg Polyethylene Glycol (Polyethylene (Miralax) 17 Gm Pack) 17 gm PO DAILY PRN PRN Reason: Constipation Stop: 08/25/22 21:31 Spironolactone (Spironolactone 12.5 Mg Tab) 12.5 mg PO DAILY [facility] Stop: 08/26/22 08:59 Last Admin: 07/29/22 08:19 Dose: 12.5 mg
[2022-07-29] MEDS ORDERED: FUROSEMIDE INJ 20 MG/2 ML VIAL IV ONE (12:14)
--- NOTE | 2022-07-29 12:20 | Cardiology Progress Note ---
Date of Service July 29, 2022 Assessment & Plan (1) Acute on chronic HFrEF (heart failure with reduced ejection fraction): (2) Ventricular tachycardia: Plan: Elevated LFTs likely due to congestive hepatopathy, or perhaps amiodarone. Given life threatening recurrent VT , benefit of ongoing amiodarone > risks, - dose already reduced to 200 mg daily. Proceed with furosemide 20 mg IV x 1. Monitor BP, kidney function and electrolytes. Will consider another dose later today. 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 Pt not on DANISH / ARB, entresto or SGLT2 inhibitor agent due to low BP. Midodrine restarted on 07/27 for BP support. Continue SQ heparin for DVT prophylaxis. Admission and Anticipated Discharge Date Admission Date: July 26, 2022 Subjective Patient seen in follow up. Eating his noontime meal. Had Rangel placed the afternoon of 07/29. Telemetry reveals a few 6 beats runs of NSVT from 10:20 to 11:30 am. Physical Exam Constitutional: + cachectic Respiratory: no respiratory distress and does not use accessory muscles Auscultation: + diminished lung sounds (Decreased breath sounds at the bases bilaterally); no crackles and no rales Cardiovascular: Rate/Rhythm: regular rate and regular rhythm Heart Sounds: normal S1 and normal S2; no murmur Extremities: + edema (Trace bilateral lower extremity edema, pedal edema) Gastrointestinal (Abdomen): normal bowel sounds, soft, nontender, no hepatosplenomegaly Neurologic: PERRL, EOMI, accommodation nl, no face palsy, no dysarthria Results & Data Vital Signs (Past 12 Hours) Vital Signs Temp Pulse Pulse Resp BP Pulse Ox O2 Del Method 07/29/22 11:54 36.3 C L 71 20 103/73 93 Room Air 07/29/22 11:53 70 07/29/22 07:58 36.7 C 72 18 105/72 91 Room Air 07/29/22 04:36 36.8 C 75 17 101/66 94 Room Air Laboratory Results Cardiac Enzymes 07/29/22 Range/Units 05:53 AST 50 H (13-39) U/L Comprehensive Metabolic Panel 07/29/22 Range/Units 05:53 Sodium 131 L (136-145) mmol/L Potassium 3.7 (3.5-5.1) mmol/L Chloride 99 (98-107) mmol/L Carbon Dioxide 26 (21-32) mmol/L BUN 17 (6-23) mg/dl Creatinine 0.95 (0.6-1.4) mg/dl Glucose 83 (70-99(Fasting)) mg/dl Calcium 8.0 L (8.6-10.3) mg/dl AST 50 H (13-39) U/L ALT 96 H (7-52) U/L Alkaline Phosphatase 105 H (34-104) U/L Total Protein 5.0 L (6.0-8.3) gm/dl Albumin 2.7 L (3.4-5.0) gm/dl Intake and Output 07/28/22 07/29/22 07/29/22 22:59 06:59 14:59 Intake Total 360 / 860 200 / 860 Output Total 400 / 900 300 / 900 Balance -40 / -40 -100 / -40 - Intake: Oral 360 / 860 200 / 860 Output: Urine 100 / 100 Urine Amount (Catheter) 300 / 800 300 / 800 External 300 / 800 300 / 800 # Bowel Movements Other: Weight 67.8 kg
[2022-07-29] MEDS: ESCITALOPRAM OXALATE 10 MG TAB PO SCH (20:16)
[2022-07-29] MEDS: ATORVASTATIN 40 MG TAB PO SCH (20:17)
[2022-07-29] MEDS: MELATONIN 3 MG TAB PO SCH (20:18)
[2022-07-30 06:32] LABS: BUN Creatinine Ratio 18.4 (10-20); Calcium 7.8 mg/dl (8.6-10.3); Creatinine Clr Calc Pharmacy 62.1 ml/min; Est GFR (African American) 93.2 ml/min; Est GFR (Non-African American) 80.4 ml/min; Magnesium 1.8 mg/dl (1.7-2.4); Phosphorus 2.4 mg/dl (2.5-4.9); Potassium 3.8 mmol/L (3.5-5.1)
[2022-07-30] MEDS ORDERED: FUROSEMIDE INJ 20 MG/2 ML VIAL IV ONE ×2 (08:12→14:00)
[2022-07-30] MEDS: METOPROLOL SUCC 25MG EXT REL TAB PO SCH ×2 (08:51→20:54)
[2022-07-30] MEDS: MAGNESIUM OXIDE 400 MG TAB PO SCH ×2 (08:51→20:54)
[2022-07-30] MEDS: levETIRAcetam 500 MG TAB PO SCH ×2 (08:51→20:55)
[2022-07-30] MEDS: HEPARIN SOD 5,000 UNIT/0.5 ML VIAL SQ SCH ×2 (08:51→20:55)
[2022-07-30] MEDS: SPIRONOLACTONE 12.5 MG TAB PO SCH (08:51)
[2022-07-30] MEDS: AMIODARONE 200 MG TAB PO SCH (08:52)
[2022-07-30] MEDS: FINASTERIDE 5 MG TAB PO SCH (08:52)
[2022-07-30] MEDS: MIDODRINE HCL 2.5 MG TAB PO SCH ×3 (08:52→17:27)
--- NOTE | 2022-07-30 10:30 | Hospitalist Progress Note ---
Date of Service July 30, 2022 Assessment & Plan (1) Acute on chronic HFrEF (heart failure with reduced ejection fraction): Plan: Known history of nonischemic cardiomyopathy He was admitted and placed on IV furosemide with improvement Cardiology consulted. Monitor I's and O's, daily weight, low-sodium diet Not on DANISH/ARB/entresto 2/2 hypotension Currently on midodrine for BP support. Cont spironolactone per hoome regimen. (2) Ventricular tachycardia: Plan: History V. tach. ICD in place. S/P ablation 07/21/22 at [facility] Recently stopped mexiletine discontinued & amiodarone decreased to 200mg daily Cont monitoring on telemetry. (3) Hyponatremia: Plan: Current Na 131 with ongoing lasix use Repeat BMP in a.m. (4) Paroxysmal atrial fibrillation: Plan: Previously on warfarin. Not currently on anticoagulation secondary to history of subdural hematoma, hemoperitoneum Continue metoprolol succinate with holding parameters (5) Seizure disorder: Plan: history of seizures, Continue Keppra (6) Depression: Plan: chronic, stable. Cont Lexapro per home regimen. (7) BPH (benign prostatic hyperplasia): Plan: chronic, stable. Continue finasteride DVT Prophylaxis: Heparin SQ Full Code DC to home with home health per his daughter who states that his and other family members have a very supportive set up for him at home after discharge. Shalini Alvares DO [facility] Hospitalist Admission and Anticipated Discharge Date Admission Date: July 26, 2022 Subjective 82 yo M with h/o nonobstructive cardiomyopathy. Underwent an ablation on 07/21/22. After his ablation at [facility] he had no further episodes of ventricular tachycardia. Following discharge he developed fluid retention, weight gain and edema. He was short of breath with exertion. He was admitted here for acute heart failure with reduced ejection fraction. Today he reports feeling better with his breathing than he did yesterday He denies any. Chest pain Daughter is at bedside Patient reports not moving around much Rangel was just removed while I was in the room. Review of Systems Review of Systems: All systems were reviewed and negative except as indicated on HPI above. Physical Exam Physical Exam: CONSTITUTIONAL: WNWD, vitals as above, generally well-appearing, NAD EYES: normal conjunctivae, no scleral icterus ENT: external ear and nose normal, MMM NECK: trachea midline RESPIRATORY: clear to auscultation bilaterally, no crackles, rales or wheezes, normal respiratory effort CARDIOVASCULAR: regular rate and rhythm, S1 and 2 heard without murmurs, g allops or rubs, no JVD, no peripheral edema CHEST: +ICD to left chest wall GASTROINTESTINAL: soft, nontender, ND, no guarding MUSCULOSKELETAL: strength 5/5 throughout, head is normocephalic and atraumatic SKIN: warm and dry NEUROLOGIC: CN 2-12 grossly intact, no sensory deficit, normal cognition, normal speech, no tremor PSYCHIATRIC: alert cooperative and oriented to person, place and time. Results & Data Results & Data Vital Signs (Past 12 Hours) Vital Signs Temp Pulse Resp BP Pulse Ox O2 Del Method 07/30/22 07:59 36.5 C 69 15 100/67 94 Room Air 07/30/22 03:53 36.6 C 71 20 101/67 96 Room Air 07/29/22 23:35 36.4 C L 69 18 101/67 94 Room Air Laboratory Results [facility] 07/30/22 05:53 Sodium 131 L Potassium 3.8 Chloride 100 Carbon Dioxide 26 BUN 16 Creatinine 0.87 Glucose 78 Calcium 7.8 L Medications Administered Current Inpatient Medications Acetaminophen (Acetaminophen 325 Mg Tab) 650 mg PO Q4H PRN PRN Reason: Pain or Fever Stop: 08/25/22 21:31 Amiodarone HCl (Amiodarone 200 Mg Tab) 200 mg PO DAILY XUAN Stop: 08/26/22 08:59 Last Admin: 07/30/22 08:52 Dose: 200 mg Atorvastatin Calcium (Atorvastatin 40 Mg Tab) 40 mg PO HS XUAN Stop: 08/25/22 21:31 Last Admin: 07/29/22 20:17 Dose: 40 mg Escitalopram Oxalate (Escitalopram Oxalate 10 Mg Tab) 10 mg PO HS [facility]UAN Stop: 08/25/22 21:31 Last Admin: 07/29/22 20:16 Dose: 10 mg Finasteride (Finasteride 5 Mg Tab) 5 mg PO QAM XUAN Stop: 08/26/22 08:59 Last Admin: 07/30/22 08:52 Dose: 5 mg Heparin Sodium (Porcine) (Heparin Sod 5,000 Unit/0.5 Ml Vial) 5,000 units SQ Q12 XUAN Stop: 08/25/22 21:31 Last Admin: 07/30/22 08:51 Dose: 5,000 units Levetiracetam (Levetiracetam 500 Mg Tab) 500 mg PO BID [facility] Stop: 08/25/22 21:31 Last Admin: 07/30/22 08:51 Dose: 500 mg Magnesium Oxide (Magnesium Oxide 400 Mg Tab) 400 mg PO BID [facility]UAN Stop: 08/28/22 20:59 Last Admin: 07/30/22 08:51 Dose: 400 mg Melatonin (Melatonin 3 Mg Tab) 3 mg PO HS [facility]UAN Stop: 08/25/22 21:31 Last Admin: 07/29/22 20:18 Dose: 3 mg Metoprolol Succinate (Metoprolol Succ 25mg Ext Rel Tab) 75 mg PO BID [facility] Stop: 08/25/22 21:31 Last Admin: 07/30/22 08:51 Dose: 75 mg Midodrine (Midodrine Hcl 2.5 Mg Tab) 5 mg PO TID@0800,1200,1700 [facility] Stop: 08/26/22 11:59 Last Admin: 07/30/22 08:52 Dose: 5 mg Polyethylene Glycol (Polyethylene (Miralax) 17 Gm Pack) 17 gm PO DAILY PRN PRN Reason: Constipation Stop: 08/25/22 21:31 Spironolactone (Spironolactone 12.5 Mg Tab) 12.5 mg PO DAILY [facility] Stop: 08/26/22 08:59 Last Admin: 07/30/22 08:51 Dose: 12.5 mg
--- NOTE | 2022-07-30 13:22 | XRay Report ---
XR chest 2V PA/lateral CLINICAL HISTORY: follow up chf COMPARISON STUDY: Chest radiograph and chest CT July 26, 2022. FINDINGS: Left subclavian pacer/AICD is in place. Cardiomegaly is again noted. There is no pneumothor ax. Small bilateral pleural effusions are noted with bibasilar opacities. Pulmonary edema has resolve d. IMPRESSION: 1. Resolution of pulmonary edema. 2. Small bilateral pleural effusions with associated bibasilar opacities which could reflect consolid ation or atelectasis. ACT 112: Negative or not required by law. Electronically signed by: Rakan Li M.D. 07/30/2022 1:21 PM
--- NOTE | 2022-07-30 13:47 | Cardiology Progress Note ---
Date of Service July 30, 2022 Assessment & Plan (1) Acute on chronic HFrEF (heart failure with reduced ejection fraction): (2) Ventricular tachycardia: Plan: Elevated LFTs likely due to congestive hepatopathy, or perhaps amiodarone. Given life threatening recurrent VT , benefit of ongoing amiodarone > risks, - dose already reduced to 200 mg daily. Chest x-ray performed today 07/30/2022, radiology report reviewed, image reviewed independently, there has been interval resolution of the noted pulmonary edema, small bilateral pleural effusions noted, possible superimposed atelectasis. Patient with clinical volume overload, but has been his usual state, treatment diuretic is limited by relative hypotension. He remains on midodrine for blood pressure support. He received a dose of furosemide on 07/30/2022 just after 8 AM, we will proceed with another dose of 20 mg of IV furosemide at 1400 today. -We will consider discontinuing Rangel catheter early this evening to ensure that he is able to void without it prior to consideration of discharge on 07/31 or 08/01/2022. History of known BPH. Continue [employer]DER metoprolol, spironolactone, atorvastatin. Pt not on DANISH / ARB, entresto or SGLT2 inhibitor agent due to low BP. Midodrine restarted on 07/27 for BP support. Continue SQ heparin for DVT prophylaxis. Admission and Anticipated Discharge Date Admission Date: July 26, 2022 Subjective Patient seen in cardiology follow-up. No additional episodes of nonsustained ventricular tachycardia since 11:30 AM on 07/29/2022. Sinus rhythm with AV sequential pacing with rates in the 60s to 70s noted on telemetry. Blood pressure remains borderline low as per his usual state with systolic readings in the upper 90s to low 100s. Rangel catheter in place. Patient received 20 mg of IV furosemide on 07/29/2022 with 1.1 L of urine output noted. Patient and his daughter, Jasmyne, describe that he had a difficult day yesterday, but slept very well last night. Physical Exam Constitutional: + cachectic Respiratory: no respiratory distress and does not use accessory muscles Auscultation: + diminished lung sounds (Decreased breath sounds at the bases bilaterally); no crackles and no rales Cardiovascular: Rate/Rhythm: regular rate and regular rhythm Heart Sounds: normal S1 and normal S2; no murmur Extremities: + edema (Trace bilateral lower extremity edema, pedal edema) Gastrointestinal (Abdomen): normal bowel sounds, soft, nontender, no hepatosplenomegaly Neurologic: PERRL, EOMI, accommodation nl, no face palsy, no dysarthria Results & Data Vital Signs (Past 12 Hours) Vital Signs Temp Pulse Resp BP Pulse Ox O2 Del Method 07/30/22 11:38 36.7 C 69 16 97/59 L 94 Room Air 07/30/22 07:59 36.5 C 69 15 100/67 94 Room Air 07/30/22 03:53 36.6 C 71 20 101/67 96 Room Air Laboratory Results Comprehensive Metabolic Panel 07/30/22 Range/Units 05:53 Sodium 131 L (136-145) mmol/L Potassium 3.8 (3.5-5.1) mmol/L Chloride 100 (98-107) mmol/L Carbon Dioxide 26 (21-32) mmol/L BUN 16 (6-23) mg/dl Creatinine 0.87 (0.6-1.4) mg/dl Glucose 78 (70-99(Fasting)) mg/dl Calcium 7.8 L (8.6-10.3) mg/dl Intake and Output 07/29/22 07/30/22 07/30/22 22:59 06:59 14:59 Intake Total 420 / 420 Output Total 650 / 1151 300 / 1151 Balance -230 / -731 -300 / -731 Intake: Oral 420 / 420 Output: Urine Amount (Catheter) 650 / 1150 300 / 1150 Rangel/Indwelling 650 / 1150 300 / 1150 Other: Weight 67.1 kg 67.4 kg Weight Measurement Method [facility] Standing Scale Patient Weight 07/31/22 06:59 Weight 67.4 kg
[2022-07-30] MEDS: MELATONIN 3 MG TAB PO SCH (20:54)
[2022-07-30] MEDS: ESCITALOPRAM OXALATE 10 MG TAB PO SCH (20:55)
[2022-07-30] MEDS: ATORVASTATIN 40 MG TAB PO SCH (20:55)
[2022-07-31 06:57] LABS: Albumin Globulin Ratio 1.2 (0.9-2); Albumin Level 2.8 gm/dl (3.4-5.0); BUN Creatinine Ratio 17.2 (10-20); Bilirubin,Total 1.6 mg/dl (0.2-1.0); Creatinine Clr Calc Pharmacy 54.6 ml/min; Est GFR (African American) 81.9 ml/min; Est GFR (Non-African American) 70.6 ml/min; Globulin 2.3 gm/dl (2.5-4.0); Potassium 3.8 mmol/L (3.5-5.1); Total Protein 5.1 gm/dl (6.0-8.3)
[2022-07-31] MEDS ORDERED: FUROSEMIDE INJ 20 MG/2 ML VIAL IV ONE (08:58)
[2022-07-31] MEDS: AMIODARONE 200 MG TAB PO SCH (09:00)
[2022-07-31] MEDS: MAGNESIUM OXIDE 400 MG TAB PO SCH (09:00)
[2022-07-31] MEDS: MIDODRINE HCL 2.5 MG TAB PO SCH ×2 (09:00→11:59)
[2022-07-31] MEDS: SPIRONOLACTONE 12.5 MG TAB PO SCH (09:00)
[2022-07-31] MEDS: levETIRAcetam 500 MG TAB PO SCH (09:01)
[2022-07-31] MEDS: HEPARIN SOD 5,000 UNIT/0.5 ML VIAL SQ SCH (09:01)
[2022-07-31] MEDS: METOPROLOL SUCC 25MG EXT REL TAB PO SCH (09:01)
[2022-07-31] MEDS: FINASTERIDE 5 MG TAB PO SCH (09:01)
--- NOTE | 2022-07-31 12:26 | Cardiology Progress Note ---
Date of Service July 31, 2022 Assessment & Plan (1) Acute on chronic HFrEF (heart failure with reduced ejection fraction): (2) Ventricular tachycardia: Plan: (dry) weight today, 07/31/22 on standing scale was 147.7 lbs. Elevated LFTs likely due to congestive hepatopathy, or perhaps amiodarone. Given life threatening recurrent VT , benefit of ongoing amiodarone > risks, - dose already reduced to 200 mg daily. Chest x-ray performed today 07/30/2022, radiology report reviewed, image reviewed independently, there has been interval resolution of the noted pulmonary edema, small bilateral pleural effusions noted, possible superimposed atelectasis. Telemetry today 07/31/22 reveals no additional VT episodes since 6 beat runs noted on the am of 07/29/22. Pt received furosemide 20 mg IV x 2 doses on 07/30. Ordered 30 mg IV furosemide this am which he has tolerated well so far. Continue [employer] metoprolol, spironolactone, atorvastatin. Pt not on DAINSH / ARB, entresto or SGLT2 inhibitor agent due to low BP. Midodrine restarted on 07/27 for BP support. Stable for discharge on the following: Furosemide 20 mg tablet, 2 tablets daily in am If weight increases by 2.5 to 5 lbs over 24-48 hours, take extra 20 mg at 2 pm. Spironolactone 12.5 mg daily. amiodarone 200 mg daily (elevated LFTs noted, given lifethreatening VT, benefits> risks) metoprolol succinate 75 mg BID atorvastatin 40 mg daily midodrine 5 mg TID Keppra 500 mg BId Lexapro 10 mg daily resume ASA 81 mg daily --pt has follow up with me scheduled for next week already. Admission and Anticipated Discharge Date Admission Date: July 26, 2022 Subjective Patient seen in cardiology follow up. He is sitting up in bed and eating lunch. Rangel catheter removed last evening and he has been able to void in the meantime without issue. Physical Exam Constitutional: + cachectic Respiratory: no respiratory distress and does not use accessory muscles Auscultation: + diminished lung sounds (Decreased breath sounds at the bases bilaterally); no crackles and no rales Cardiovascular: Rate/Rhythm: regular rate and regular rhythm Heart Sounds: normal S1 and normal S2; no murmur Extremities: + edema (Trace bilateral lower extremity edema, pedal edema) Gastrointestinal (Abdomen): normal bowel sounds, soft, nontender, no hepatosplenomegaly Neurologic: PERRL, EOMI, accommodation nl, no face palsy, no dysarthria Results & Data Vital Signs (Past 12 Hours) Vital Signs Temp Pulse Resp BP Pulse Ox O2 Del Method 07/31/22 12:01 36.5 C 70 16 105/71 97 Room Air 07/31/22 08:24 36.6 C 71 16 109/75 96 Room Air 07/31/22 04:00 36.5 C 71 18 100/65 93 Room Air Laboratory Results Cardiac Enzymes 07/31/22 Range/Units 06:16 AST 55 H (13-39) U/L Comprehensive Metabolic Panel 07/31/22 Range/Units 06:16 Sodium 133 L (136-145) mmol/L Potassium 3.8 (3.5-5.1) mmol/L Chloride 99 (98-107) mmol/L Carbon Dioxide 29 (21-32) mmol/L BUN 17 (6-23) mg/dl Creatinine 0.99 (0.6-1.4) mg/dl Glucose 92 (70-99(Fasting)) mg/dl Calcium 8.0 L (8.6-10.3) mg/dl AST 55 H (13-39) U/L ALT 86 H (7-52) U/L Alkaline Phosphatase 115 H (34-104) U/L Total Protein 5.1 L (6.0-8.3) gm/dl Albumin 2.8 L (3.4-5.0) gm/dl Intake and Output 07/30/22 07/31/22 07/31/22 22:59 06:59 14:59 Intake Total 220 / 320 Output Total 300 / 1150 450 / 1150 Balance -80 / -830 -450 / -830 -1 Intake: Oral 220 / 320 Output: Urine 300 / 750 450 / 750 # Bowel Movements Other: Other Intake Source SIPS # Unmeasured Voids 2 1 Weight 67.1 kg 67 kg Weight Measurement Method Built in Bedscale Standing Scale Patient Weight 08/01/22 06:59 Weight 67 kg
--- NOTE | 2022-07-31 14:15 | Discharge Summary ---
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 History obtained from patient, patient's daughter and inpatient and outpatient chart review. History of recurrent hospitalization for VT, most recent hospitalization at [facility] 07/11/2022-07/14/2022 for V. tach. During that admission amiodarone was increased to 400 milligrams twice daily, mexiletine increased to 300 mg twice daily. Patient was discharged home with plan for outpatient VT ablation at [facility]. Patient admitted at [facility] 07/15/22-07/23/22 for weakness. During admission he had additional episodes of VT and EP adjusted medications and ICD settings were adjusted. Had ablation on 07/21/22. No further episodes of VT. Worked with PT/OT and discharged home on 07/23/22. Upon discharge mexiletine discontinued, midodrine discontinued, amiodarone decreased to 200mg daily, and was discharged on lasix 20mg daily and spironolactone 12.5mg daily. Family report patient was up 10 pounds on discharge. At home they noticed BLE edema and patient had orthopnea. He has been sleeping in recliner secondary to orthopnea. He was becoming SOB with exertion. Family gave patient Lasix 40mg on 07/24 and 07/25. Today he is down 3 pounds and has noted improvement of SOB. He has been intermittently bringing up clear phlegm, otherwise denies increased cough. He has been weak since all recent hospitalizations, but family feel starting to show some increased strength. They would like to keep family at home but are willing to have PT/OT evaluations. Denies fever/chills, diaphoresis, N/V/D/C, SCHUSTER, dizziness, syncope, CP, palpitations, hemoptysis, rhinorrhea, abdominal pain, rashes, urinary symptoms. Admission Exam Per Admitting Provider General: no distress, WDWN Head: normocephalic, atraumatic Eyes: conjunctiva non-injected, anicteric ENT: +hard of hearing, normal inspection external ears, nose, mucous membranes moist Neck: supple, trachea midline Lungs: no respiratory distress, no wheezing/rhonchi, very faint rales LLL CV: RRR, no murmur, trace pretibial edema, +ICD palpable chest wall without erythema or edema Abd: normal BS, soft, non-tender Ext: no cyanosis, no calf tenderness Neuro: A&O x 3, no focal deficits noted, normal affect Skin: warm, dry Principal Dx & Hospital Course #1 = Principal Diagnosis (1) Acute on chronic HFrEF (heart failure with reduced ejection fraction): Known history of nonischemic cardiomyopathy He was admitted and placed on IV furosemide with improvement Cardiology consulted. Monitor I's and O's, daily weight, low-sodium diet Not on DANISH/ARB/entresto 2/2 hypotension Started on midodrine for BP support. Cont spironolactone per home regimen. (2) Ventricular tachycardia: History V. tach. ICD in place. S/P ablation 07/21/22 at [facility] Recently stopped mexiletine discontinued & amiodarone decreased to 200mg daily Cont monitoring on telemetry. (3) Hyponatremia: Low normal levels-multifactorial etiology including ongoing hypervolmia, Lasix use, variable PO intake, etc. Cont monitoring periodically as outpatient. (4) Paroxysmal atrial fibrillation: Previously on warfarin. Not currently on anticoagulation secondary to history of subdural hematoma, hemoperitoneum Continue metoprolol succinate with increased dose to 75mg BID Discharge Exam lungs CTAB no peripheral edema able to sit up independently appears to be mentating and ambulating at his baseline. Updated Medication List Medication Instructions Recorded Confirmed Type atorvastatin 40 mg tablet (Lipitor) 40 mg PO HS #30 tabs 07/26/21 07/26/22 Rx finasteride 5 mg tablet (Proscar) 5 mg PO QAM #90 tabs 11/04/21 07/26/22 Rx spironolactone 25 mg tablet 12.5 mg PO DAILY #15 tabs 02/26/22 07/26/22 Rx levetiracetam 500 mg tablet 500 mg PO BID 06/30/22 07/26/22 History amiodarone 200 mg tablet 200 mg PO BID 07/26/22 07/26/22 History escitalopram oxalate 10 mg tablet 10 mg PO HS 07/26/22 07/26/22 History metoprolol succinate 50 mg 75 mg PO BID 07/26/22 07/26/22 History tablet,extended release 24 hr amiodarone 200 mg tablet 200 mg PO DAILY #30 tabs 07/31/22 Rx furosemide 20 mg tablet 40 mg PO DAILY #60 tabs 07/31/22 Rx metoprolol succinate 25 mg 75 mg PO BID #180 tabs 07/31/22 Rx tablet,extended release 24 hr midodrine 5 mg tablet 5 mg PO TID #90 tabs 07/31/22 Rx Hospital Stay Data Consultations 07/26/22 17:02 ED Decision to Admit Stat 07/27/22 08:00 Consult Cardiology Routine Diagnostic Imagining Performed 07/26/22 16:50 CT chest diagnostic wo con Stat Pending Results Patient Have Any Pending Studies at Discharge: No Discharge Instructions Given to Patient (Per Discharging Provider) Please take all medications as instructed on discharge list below. Please note multiple changes to your medications. Please follow-up wtih your primary care physician in one week. Repeat labwork will need to be ordered at that time. Please followup with your heart doctor as instructed. It was a pleasure taking care of you! Please call if you have any questions or problems. You can reach a [facility] hospitalist on duty at [facility] 24 hours a day by calling [phone]. Take care of yourself. Shalini Alvares, [facility] Hospitalist Total Time Total Time Spent Total Time Spent (In Minutes): 60
== END 2022-07-31 15:16 | disposition home or self-care (01) | DRG 291 ==
LOC: ED 15:04 → 4W 18:01 → SUATTDRO 18:01 → 4W 21:20